=== PATIENT | female | born 1950 | race Caucasian/White ===

== ENCOUNTER 2020-03-10 14:21 | Emergency (ER) | payer MEDICARE ==
[~2020-03-10] VITALS: Ht 167.6 cm; Wt 127.0 kg
--- OUTSIDE RECORDS SUMMARY | ~2020-03-10 | XMS | Encounter Summary ---
Demographics + + + | Address | [address] | | | [place] [address] | + + + | Home Phone | | + + + | Preferred Language | Unknown | + + + | Marital Status | Single | + + + | Mormonism Affiliation | Unknown | + + + | Race | White | + + + | Ethnic Group | Not or | + + + Author + + + | Author | [facility] | + + + | Organization | [facility] | + + + | Address | Unknown | + + + | Phone | Unavailable | + + + Support + + +---------+ + | Name | Relationship | Address | Phone | + + +---------+ + | Marifer Valentin | ECON | Unknown | | + + +---------+ + Care Team Providers + +------+ + | Care Riprap Worker Name | Role | Phone | + +------+ + | Stephanie Washington | PCP | | + +------+ + Encounter Details +--------+ + + + + | Date | Type | Department | Care Team | Description | +--------+ + + + + | 07/08/ | Abstract | [facility] | Clinic, Surgery | | | 2019 | | [place] [facility] [address] | | | | | | [address] | | | | | | Mailcode: [place] | | | | | | [facility] | | | | | | [facility], [address] | | | | | | [place], [place] | | | | | | [address] | | | | | | [phone] | | | +--------+ + + + + Social History + + + +--------+------+ | Tobacco Use | Types | Packs/Day | Years | Date | | | | | Used | | + + + +--------+------+ | Former Smoker | Cigarettes | | | | + + + +--------+------+ + +---+---+---+ | Smokeless Tobacco: | | | | | Never Used | | | | + +---+---+---+ + + +---------+ + | Alcohol Use | Drinks/Week | oz/Week | Comments | + + +---------+ + | Never | | | 20 years sober | + + +---------+ + + + + + | Alcohol Habits | Answer | Date Recorded | + + + + | How often do you have a drink containing | Never | 06/14/2019 | | alcohol? | | | + + + + | How many drinks containing alcohol do you | Not asked | | | have on a typical day when you are | | | | drinking? | | | + + + + | How often do you have six or more drinks on | Not asked | | | one occasion? | | | + + + + + + + | Sex Assigned at | Date Recorded | | | | + + + | Not on file | | + + + + + + + | Job Start Date | Occupation | Industry | + + + + | Not on file | Not on file | Not on file | + + + + + + + + | Travel History | Travel Start | Travel End | + + + + + + | No recent travel history available. | + + documented as of this encounter Plan of Treatment Not on filedocumented as of this encounter Visit Diagnoses Not on filedocumented in this encounter"
--- OUTSIDE RECORDS SUMMARY | ~2020-03-10 | XMS | Encounter Summary ---
Demographics + + + | Address | [address] | | | [place] [address] | + + + | Home Phone | | + + + | Preferred Language | Unknown | + + + | Marital Status | | + + + | Samaritan Affiliation | 1027 | + + + | Race | Unknown | + + + | Ethnic Group | Unknown | + + + Author + + + | Author | [facility] | | | and [place] | + + + | Organization | [facility] | | | and [place] [...] Team Providers + +------+ + | Care Survey Data Technician Name | Role | Phone | + +------+ + | Peng Fink MD | PCP | | + +------+ + Reason for Visit Auth/Cert +--------+--------+ + + + + | Status | Reason | Specialty | Diagnoses / | Referred By | Referred To | | | | | Procedures | Contact | Contact | +--------+--------+ + + + + | Closed | | | Diagnoses | | Jesus, | | | | | Basal cell | | Sundeep Jules MD | | | | | carcinoma of | | [address] | | | | | trunk | | [address] | | | | | Procedures | | [place] | | | | | [place] EXC SKIN | | [address] | | | | | [place] | | Phone: | | | | | 2.1-3CM | | [phone] | | | | | TRUNK,ARM,LE | | Fax: | | | | | G ND SPLIT | | [phone] | | | | | GRFT | | | | | | | TRUNK,ARM,LE | | | | | | | G <100SQCM | | | +--------+--------+ + + + + Encounter Details +--------+---------+ + + + | Date | Type | Department | Care Team | Description | +--------+---------+ + + + | 10/07/ | Surgery | [facility] | Sundeep Lee, | EXCISION OF RIGHT | | 2015 | | [facility] | [address] | UPPER BACK BASAL | | | | INTRA [address] | [place], | CELL CARCINOMA | | | | [address] | [place] [address] | | | | | [place] | [phone] | | | | | | | [...] + + + | Blood Pressure | 142/73 | 10/07/2015 10:28 AM | | | | | PST | | + + + + + | Pulse | 61 | 10/07/2015 11:46 AM | | | | | PST | | + + + + + | Temperature | 36.7 C (98.1 F) | 10/07/2015 10:28 AM | | | | | PST | | + + + + + | Respiratory Rate | 16 | 10/07/2015 11:46 AM | | | | | PST | | + + + + + | Oxygen Saturation | 99% | 10/07/2015 11:46 AM | | | | | PST | | + + + + + | Inhaled Oxygen | - | - | | | Concentration | | | | + + + + + | Weight | 142.4 kg (313 lb 15 | 10/07/2015 8:17 AM | | | | oz) | PST | | + + + + + | Height | 165.1 cm (5' 5") | 10/07/2015 8:17 AM | | | | | PST | | + + + + + | Body Mass Index | 52.24 | 10/07/2015 8:17 AM | | | | | PST | | + + + + + documented in this encounter Discharge Summaries Sundeep Lee MD - 10/19/2015 1:08 PM PSTFormatting of this note might be different f rom the original. DISCHARGE SUMMARY Tiffanie Valentin, 65 y.o. female DATE OF ADMISSION: 10/07/2015 7:23 DATE OF DISCHARGE: 10/19/2015 DIAGNOSES: (Principal diagnosis listed first): Basal cell carcinoma of trunk [C44.519] Active Problems: * No active hospital problems. * SURGICAL PROCEDURES PERFORMED: Procedure(s) (LRB): EXCISION OF RIGHT UPPER BACK BASAL CELL CARCINOMA (Right) PROCEDURES:SKIN GRAFT FULL THICKNESS Summary of hospital course: The patient underwent the above surgical procedure, after which she was watched until stabl e then discharged to home. Condition on discharge: The patient tolerated the procedure well Disposition: Home PRIMARY CARE PROVIDER: Peng Fink MD PAST HISTORY: Past Medical History Diagnosis Date Anxiety Cataract Reflux Fractures 1988 right tib fib Dental bridge present Malignant neoplasm of skin BCCA back Palpitations upon awakening- pt denies Anemia yrs ago- resolved Acid reflux disease controlled Hypertension controlled Arthritis left knee Sleep apnea uses CPAP Wears partial dentures Prediabetes per pt "I am pre- diabetic" - no meds Past Surgical History Procedure Laterality Date Ovary removal Right Dilation and curettage of uterus 2012 Fracture surgery Right 1988 Tib-Fib with external fixator and subsequent removal Knee surgery Left 1988 Cardiac catherization N/A 01/02/2015 Procedure: LEFT HEART CATH W/ CORONARIES/CORONARY INTERVENTION; Surgeon: Jozef Hoover MD; [facility] Carpal tunnel release Left 11/19/2007 Dr. Trey Morrell Carpal tunnel release Right 10/04/2007 Dr. Trey Morrell Eye surgery Bilateral cataracts with lens implant Skin full graft Right 10/07/2015 Procedure: EXCISION OF RIGHT UPPER BACK BASAL CELL CARCINOMA; Surgeon: Sundeep Lee MD; Location: [facility] [place] ALL[facility]GIES: Review of patient's allergies indicates no known allergies. - - - - - - - - - - - - - - - - - - - - - - Discharge instructions: Keep the dressing clean and dry. Keep the operated extremity elevated as much as possible-- preferably above the level of your heart-- to prevent swelling. Open and close your fingers as far up and down as possible to keep them from getting sti ff and swollen If feel that your postoperative splint is too tight to the point that it is acting like a tourniquet and causing swelling or numbness, either call, go to the ER, or go ahead and cu t through one side of the splint to release the pressure (and then retape the splint in its looser position). For showers-- please place a clean plastic bag over your dressing and tape it in place a nd keep your arm elevated so the dressing does not get wet No handling or washing pets Discharge medications: Patient Instructions: 1. If you are given a prescription for antibiotics, take them as ordered by your doctor unt il they are all gone. 2. Take medications as directed by your doctor. 3. If you have problems that may be caused by your medications such as rash, itching, swell ing, or stomach pain, call your doctor. Medications: Discharge Medications New Medications Details HYDROcodone-acetaminophen 5-325 mg per tablet Take 1-2 tablets by mouth every 6 hours as needed for Pain. aka: NORCO Unchanged Medications Details ALEVE 220 MG tablet Generic drug: naproxen sodium Take 220 mg by mouth as needed. aspirin 81 mg EC tablet Take 81 mg by mouth nightly. Cholecalciferol 2000 units Caps Take 2,000 Units by mouth Daily. aka: VITAMIN D-3 enalapril 20 MG tablet Take 20 mg by mouth 2 times daily. aka: VASOTEC omeprazole 20 mg capsule Take 20 mg by mouth every morning (before breakfast). aka: priLOSEC simvastatin 20 mg tablet Take 20 mg by mouth nightly. aka: ZOCOR venlafaxine 75 MG tablet Take 75 mg by mouth every morning. aka: EFFEXOR Follow-up appointment: Appointment with Dr. Lee at [facility] the [facility] in 1 week as scheduled. Activity: No strenuous activity until your next visit with Dr. Lee Diet: Your recommended diet should be: Return to the diet you were on prior to surgery. No alcoho lic beverages while taking narcotic pain medications. Symptoms to report to your surgeon: Pain that is not tolerable despite use of ice, elevation of arm and use of your pain med ications. Wet or blood-soaked bandages. Oral temperature greater than 100.5 degrees for more than 24 hours. Fingertips that become blanched white or blue (not bruised) You will likely have numbness/tingling from the local anesthetic. If this does not reso lve in 24 to 36 hours, call your doctor. If numbness/tingling starts after you go home, try repositioning your arm to take pressu re off your elbow and move your non-splinted joints around; wiggle your fingers. If the numb ness doesn t resolve, call your doctor. Follow Up: If your appointment has been made, you will find it listed in Your To Do List under Futu re Appointments. If no appointment is listed, please call the office at the number listed a [email or web address] to make a follow up appointment. If you are unable to reach doctor at the above number, call the answering service at . Copy of discharge instructions received. Sundeep Lee 10/19/2015 documente d in this encounter Discharge Instructions Instructions Sundeep Lee MD - 10/07/2015POST-OPERATIVE INSTRUCTIONS GENERAL Activity: Rest today. Change position slowly for the remainder of the day. Sit down immediately i f you experience dizziness or lightheadedness and call for help. Gradually return to normal activities. Diet: Clear liquids until nausea passes, then return to normal diet as tolerated. Pain and Comfort: Take pain medication as needed. Do NOT combine with any other pain medication Pain pills can cause constipation. Use a laxative of your choice if necessary. Do not dr ink alcohol, drive or operate machinery while taking narcotics Please be aware that, should you need additional pain medicine, this will not be filled after hours or on weekends; you should call by Monday morning regarding additional pain medi cation. Refills for pain medication may take up to 72 hours. Dressing: Leave dressing in place for 5 days. Keep the dressing clean and dry. After 5 days, remove the outer clear, plastic dressing and gauze. You will see tapes on the skin, leave these in place. Follow up: Follow-up with Dr. Lee at the [facility], 2nd Floor on 10/13 at 8:00am. Please plan to check in 10 minutes prior to your scheduled appointment. If you have questions or problems including the following, please call the surgeon's office at the number listed above these instructions in Future Appointments. Elevated fever over 101F especially if associated with sweats, chills and/or body ache s. Increasing redness around or drainage from your incision. Feeling the need to urinate but unable to. Pain that is not tolerable despite taking your medications as discussed. See Pain sectio n above. Frequent nausea/vomiting especially if you are unable to keep fluids down. If you are unable to reach your doctor at the above number, call our answering service at . You have received sedation / an anesthetic today. DO NOT drive a vehicle, use alcoholic joseph erages, sign legal documents, take public transportation alone or care for a dependent perso n for the next 24 hours.:[id number]} documented in this encounter Medications at Time [...] + + + +---------+ + + | Cholecalciferol | Take 2,000 Units by | | 0 | | | | (VITAMIN D-3) 2000 | mouth Daily. | | | | 6 | | units CAPS | | | | | | + + + +---------+ + + | | Take 1-2 tablets by | 30 | 0 | 10/07/20 | | | HYDROcodone-acetamin | mouth every 6 hours | tablet | | 15 | 6 | | ophen (NORCO) 5-325 | as [...] + + documented as of this encounter Progress Notes Lynette Jimenez RN - 10/07/2015 12:02 PM PSTDischarge instruction given and reviewed with patient understanding discharged ambulatory To home escorted by daughter corinne jhaveri and valerie blake discharge criteria documented in this encounter Plan of Treatment Not on filedocumented as of this encounter Procedures + +--------+ + + + | Procedure Name | Priori | Date/Time | Associated Diagnosis | Comments | | | ty | | | | + +--------+ + + + | SKIN GRAFT FULL | | 10/07/2015 | Basal cell | | | THICKNESS | | 8:24 AM | carcinoma of trunk | | | | | PST | | | + +--------+ + + + +---+--------+ | | | | | Specia | | | l | | | Needs | | | WT | | | 325, | | | [place] | | | | | | DERMAT | | | OME | | | AND | | | DERMAT | | | OME | | | BLADE, | | | | | | POSITI | | | ON | | | PATIEN | | | T ON | | | LEFT | | | SIDE, | | | OK TO | | | CALL | | | AT | | | WORK | | | [phone] | | | [phone] | | | HAS | | | SLEEP | | | APNEA | +---+--------+ + +--------+ +---+ + | SURGICAL PATHOLOGY | Routin | 10/07/2015 | | Results for this | | EXAM | e | 12:00 AM | | procedure are in the | | | | PST | | results section. | + +--------+ +---+ + documented in this encounter Results Surgical Pathology Exam (10/07/2015 12:00 AM PST) + + | Specimen | + + | Soft tissue sample | | (specimen) | + + + + -------+ | Narrative | Performed At | + + -------+ | Gender: FAge: | [facility] | | 65Date of : 1950 CASE: [id number]: Tiffanie | CELLNETI X | | [facility] [id number]: Tiffanie Valentin | | | Date of : 1950rovider: Sundeep Lee MD | | | Received: 10/07/2015 FINAL DIAGNOSIS: Skin, right upper back, | | | excision:Basal cell carcinoma, with the following | | | features:Histological subtype: Superficial-multifocal | | | type.Margins:Superior-lateral peripheral: Negative (4 | | | mm).Inferior-lateral peripheral: Negative (greater than 5 | | | mm).Inferior-medial peripheral: Negative (greater than 5 | | | mm).Superior-medial peripheral: Negative (4.5 mm).Deep: Negative | | | (greater than 5 mm).Tips: Negative.Other findings: Focal dermal scar | | | and suture granuloma, consistent withprior biopsy site. CLINICAL | | | INFORMATION:Basal cell carcinoma of trunk. ICD10 code(s): C44.519 | | | GROSS DESCRIPTION:Received in formalin, labeled "Tiffanie Valentin" | | | "A" per containerand "right upper back lesion" per requisition, is a 6 | | | x 2.3 x 1.3 cmportion of skin with a suture at one pole designating | | | lateral. There girma central 0.5 x 0.5 cm scar, 0.7 cm from the superior | | | edge, 0.9 cm fromthe inferior edge, 2.6 cm from the lateral and | | | medial poles. It is inkedas follows: suture medial-orange; superior | | | lateral-blue; inferiorhalf-black. The subcutaneous tissue adjacent to | | | the scar has a whitefibrous appearance with focal pink-red punctate | | | areas. This scar is 0.9cm from the deep margin. Seal Skinner | | | sections are submitted asfollows: A1 - tips; A2-A8 - entire lesion | | | blocked out. (pam/[id number]) Jackson Vivar M.D. Electronically | | | signed 10/09/2015 13:07 Performed at [facility] | | | [place] [address] CLIA#: | | | [id number]: Unless otherwise specified, a microscopic exam | | | has been performed. Received Date: 10/07/2015Collection Date: | | | 10/07/2015Referring Physician: Jesus IRVIN, [facility] | | | Physician copies: | | |and "right upper back lesion" per requisition, is a 6 x 2.3 x 1.3 cm | | |portion of skin with a suture at one pole designating lateral. There is | | |a central 0.5 x 0.5 cm scar, 0.7 cm from the superior edge, 0.9 cm from | | |the inferior edge, 2.6 cm from the lateral and medial poles. It is inked | | |as follows: suture medial-orange; superior lateral-blue; inferior | | |half-black. The subcutaneous tissue adjacent to the scar has a white | | |fibrous appearance with focal pink-red punctate areas. This scar is 0.9 | | |cm from the deep margin. Seal Skinner sections are submitted as | | |follows: A1 - tips; A2-A8 - entire lesion blocked out. (pam/[id number]) | | | | | | | | | | | | | | | Jackson Vivar M.D. Electronically signed 10/09/2015 13:07 (220) | | |[phone] Performed at [facility], [address] [place] [address], | | |[place] [address] [facility]#: [id number] | | |Microscopic: Unless otherwise specified, a microscopic exam has been performed. | | | | | |Received Date: 10/07/2015 | | |Collection Date: 10/07/2015 | | |Referring Physician: Jesus IRVIN, Sundeep Jules | | |Additional Physician copies: | | + + -------+ + + + + + | Performing | Address | City/State/Zipcode | Phone Number | | Organization | | | | + + + + + | REFERENCE LAB | [address] [facility] | [place] [address] | [phone] | | [facility] | [address] | | | + + + + + documented in this encounter Visit Diagnoses + + | Diagnosis | + + | Basal cell carcinoma of trunk Basal cell carcinoma of skin of trunk, except scrotum | + + documented in this encounter Administered Medications + +--------+ +--------+------+ + | Medication Order | MAR | Action | Dose | Rate | Site | | | Action | Date | | | | + +--------+ +--------+------+ + | bupivacaine (PF) (MARCAINE) | Given | 10/07/20 | 17 mLs | | Surgical | | 0.5% injection PRN, Starting Wed | | 15 9:09 | | | Site | | 10/07/15 at 0909, Intra-op | | AM PST | | | | + +--------+ +--------+------+ + +---+---+ | | | +---+---+ + + + +---+-------+---+ | lactated ringers (LR) infusion | Rate/Dos | 10/07/20 | | 100 | | | at 100 mL/hr, Intravenous, | e Verify | 15 10:20 | | mL/hr | | | CONTINUOUS, Starting 10/07/15 | | AM PST | | | | | at 0800, Pre-op | | | | | | + + + +---+-------+---+ +---------+ +---+-------+---+ | New Bag | 10/07/20 | | 100 | | | | 15 8:21 | | mL/hr | | | | AM PST | | | | +---------+ +---+-------+---+ +---+---+ | | | +---+---+ + +-------+ +--------+---+ + | lidocaine 1%-EPINEPHrine | Given | 10/07/20 | 17 mLs | | Surgical | | 1:100,000 injection PRN, | | 15 9:09 | | | Site | | Starting 10/07/15 at 0909, | | AM PST | | | | | Intra-op | | | | | | + +-------+ +--------+---+ + +---+---+ | | | +---+---+ documented in this encounter
--- OUTSIDE RECORDS SUMMARY | ~2020-03-10 | XMS | Encounter Summary ---
Demographics + + + | Address | [address] | | | [place] [address] | + + + | Home Phone | | + + + | Preferred Language | Unknown | + + + | Marital Status | Single | + + + | Jain Affiliation | Unknown | + + + | Race | White | + + + | Ethnic Group | Not or | + + + Author + + + | Author | [facility] | + + + | Organization | [facility] | + + + | Address | Unknown | + + + | Phone | Unavailable | + + + Support + + +---------+ + | Name | Relationship | Address | Phone | + + +---------+ + | Marifer Valentin | ECON | Unknown | | + + +---------+ + Care Team Providers + +------+ + | Care Timekeeping Supervisor Name | Role | Phone | + +------+ + | Unknown | PCP | Unavailable | + +------+ + Reason for Visit + + + | Reason | Comments | + + + | Medical Records | | | Review | | + + + Encounter Details +--------+ + + + + | Date | Type | Department | Care Team | Description | +--------+ + + + + | 01/14/ | Abstract | [facility] | Marita Hadley, | Medical Records | | 2019 | | [place] [facility] [address] | [address] | Review | | | | [address] | [place], [place] | | | | | Mailcode: [place] | [address] | | | | | for Health and | [phone] | | | | | [facility] [address] | | | | | | [place], [place] | | | | | | [address] | | | | | | [phone] | | | +--------+ + + + [...]
--- OUTSIDE RECORDS SUMMARY | ~2020-03-10 | XMS | Encounter Summary ---
Demographics + + + | Address | [address] | | | [place] [address] | + + + | Home Phone | | + + + | Preferred Language | Unknown | + + + | Marital Status | | + + + | Pentecostal Affiliation | 1027 | + + + | Race | Unknown | + + + | Ethnic Group | Unknown | + + + Author + + + | Author | [facility] | | | and [place] | + + + | Organization | [facility] | | | and [place] [...] Team Providers + +------+ + | Care Bsa/Aml Compliance Officer Name | Role | Phone | + [...] | | skin of | | [place] | | | | | left upper | | [address] | | | | | extremity, | | Phone: | | | | | including | | [phone] | | | | | shoulder | | Fax: | | | | | Procedures | | [phone] | | | | | NV EXC TUMOR | | | | | | | SOFT TISSUE | | | | | | | UPPER | | | | | | | ARM/ELBOW | | | | | | | SUBQ 3+CM | | | | | | | NV EXC SKIN | | | | | | | MALIG >4CM | | | | | | | TRUNK,ARM,LE | | | | | | | G | | | +--------+--------+ + + + + Encounter Details +--------+ + + + + | Date | Type | Department | Care Team | Description | +--------+ + + + + | 11/17/ | Anesthesia | [facility] | Kelly Mendoza, | | | 2015 | Event | [facility] | PNEUMATIC JACK OPERATOR [address] | | | | | [address]TRA [address] [place], | | | | | [address] | [place] [address] | | | | | [place] [address] | [phone] | | | | | [phone] | | | | | | | Hardeep Johnson, | | | | | | PNEUMATIC JACK OPERATOR [address] | | | | | | [place] | | | | | | [address] | | | | | | | | +--------+ + + + + Anesthesia Record + + + + + | Procedure Name | Responsible | Anesthesia Start | Anesthesia Stop Time | | | Anesthesiologist | Time | | + + + + + | LEFT UPPER EXTREMITY | Kelly Mendoza CRNA | 11/17/15 1018 | 11/17/15 1219 | | LIPOMA EXCISION, | | | | | LEFT BASAL CELL | | | | | CARCINOMA EXCISION | | | | | (Left Arm Upper) | | | | + + + + + +----+---+ + + | Da | T | Event | Comment | | te | i | | | | | m | | | | | e | | | +----+---+ + + | 01 | 0 | An Checkout | Pre-use anesthesia machine/equipment checkout. | | /2 | 9 | | | | 6/ | 5 | | | | 20 | 9 | | | | 16 | | | | +----+---+ + + | | 1 | | | | | 0 | | | | | 1 | | | | | 1 | | | +----+---+ + + | | 1 | An Start | Reassessment prior to anesthesia induction/procedure. | | | 0 | | | | | 1 | | | | | 8 | | | +----+---+ + + | | 1 | Antibiotic | | | | 0 | Given | | | | 1 | | | | | 8 | | | +----+---+ + + | | 1 | Preoxygenat | | | | 0 | ed | | | | 2 | | | | | 6 | | | +----+---+ + + | | 1 | An | | | | 0 | Induction | | | | 3 | | | | | 0 | | | +----+---+ + + | | 1 | An | | | | 0 | Intubation | | | | 3 | | | | | 1 | | | +----+---+ + + | | 1 | Augusta | | | | 0 | 43-degrees | | | | 4 | | | | | 0 | | | +----+---+ + + | | 1 | First | | | | 0 | Inc/Proc St | | | | 4 | | | | | 5 | | | +----+---+ + + | | 1 | Pre-Procedu | | | | 0 | ral Timeout | | | | 4 | Completed | | | | 6 | | | +----+---+ + + | | 1 | AN Bite | | | | 2 | Block | | | | 0 | | | | | 0 | | | +----+---+ + + | | 1 | Oropharynx | | | | 2 | Suctioned | | | | 0 | | | | | 0 | | | +----+---+ + + | | 1 | Augusta off | | | | 2 | | | | | 0 | | | | | 0 | | | +----+---+ + + | | 1 | Extubated | | | | 2 | Awake | | | | 0 | | | | | 3 | | | +----+---+ + + | | 1 | an stop | | | | 2 | data | | | | 0 | | | | | 9 | | | +----+---+ + + | | 1 | An Stop | Awake with good airway. Oral airway out. To PACU on 8L O2 FM. | | | 2 | | Patient handed off to recovery nurse. No pain or nausea. 142/90, | | | 1 | | 97, 18, 99%, 36.5. | +----+---+ + + +------+ | Meds | +------+ + + + | Name | Total | + + + | midazolam | 2 mg | + + + | lidocaine 2% (PF) | 100 mg | + + + | fentaNYL | 225 mcg | + + + | propofol | 230 mg | + + + | succinylcholine | 180 mg | + + + | rocuronium | 20 mg | + + + | dexamethasone (DECADRON) | 4 mg | | injection 4 mg/mL (non-IV routes) | | + + + | ePHEDrine | 30 mg | + + + | ondansetron | 4 mg | + + + | ceFAZolin | 2 g | + + + | lactated ringers infusion | 1,800 mL | + + + + + | Name | + + | N2O Flow Rate (L/Min) | + + | O2 Flow Rate (L/Min) | + + | Insp O2 | + + | Exp N2O | + + | Exp SEV | + + | Air Flow Rate (L/Min) | + + + + | No blood administrations on file. | + + +--------+ + + + | Type | Details | Placement | Removal | +--------+ + + + | Periph | 10/07/15; 0821; [id number] | 10/07/15 0821 by | 07/16/18 1411 by | | eral | catheter system; 20 gauge, 1 in | Ana Paula Valladares | Mary Carmen Smith, | | IV | length; distraction, tolerated | | RN | | | well; 07/16/18; 1411 | | | +--------+ + + + | Read | 10/07/15; 09; back; 07/16/18; | 10/07/15 0910 by | 07/16/18 1411 by | | only - | 1411 | Cosmo Wilkins, | Mary Carmen Smith, | | | | RN | RN | | [facility] | | | | | on | | | | +--------+ + + + | Periph | 11/17/15; 1000; [id number] | 11/17/15 1000 by | 11/17/15 1416 by | | eral | catheter system; 20 gauge, 1 in | Latasha Abbott | Dilcia Sewell, | | IV | length; distraction, intradermal | | FINANCE TEACHER | | | injection, tolerated well; | | | | | expected removal post discharge; | | | | | 11/17/15; 1416 | | | +--------+ + + + | Airway | Placement Date: 11/17/15; | 11/17/15 1031 by Kelly | 11/17/15 1203 by Kelly | | | Placement Time: 1031; Mask | Stephan Mendoza CRNA | Stephan Mendoza CRNA | | | Ventilation: EZ; Airway Grade: | | | | | II; Successful Technique: Olmedo; | | | | | Laryngoscope Blade Size: 2; | | | | | Attempts: 1; Airway Type: | | | | | endotracheal, oral, cuffed, | | | | | disposable; Size: 7; Airway Tube | | | | | Secured At: 20; Tube Reference | | | | | Point: lip, secure and patent; | | | | | Trauma: none; Other Equipment: | | | | | stylette; Placement Check: breath | | | | | sounds equal bilaterally, | | | | | exhaled CO2 detection device; | | | | | Removal Date: 11/17/15; Removal | | | | | Time: 1203 | | | +--------+ + + + | Drain/ | 11/17/15; 1140; #1; Left; upper; | 11/17/15 1140 by | 11/17/15 1416 by | | Device | arm; collapsible closed device; | Collette Edmonds, | Dilcia Sewell, | | Site | healing within expectations; | RN | FINANCE TEACHER | | | 11/17/15; 1416 | | | +--------+ + + + | Read | 11/17/15; 1144; Left; arm; | 11/17/15 1144 by | 11/17/15 1416 by | | only - | healing within expectations; | Collette Edmonds, | Dilcia Sewell, | | | 11/17/15; 1416 | RN | FINANCE TEACHER | | Inc[facility] | | | | | on | | | | +--------+ + + + documented in this encounter Social History + + + +--------+ + [...] Visit Diagnoses Not on filedocumented in this encounter Administered Medications + +--------+ +------+------+------+ | Medication Order | MAR | Action | Dose | Rate | Site | | | Action | Date | | | | + +--------+ +------+------+------+ | ceFAZolin (ANCEF, KEFZOL) | Given | 11/17/19 | 2 g | | | | injection Intravenous, PRN, | | 16 10:18 | | | | | Starting 11/17/15 at 1018, | | AM PST | | | | | Anesthesia Intra-op | | | | | | + +--------+ +------+------+------+ +---+---+ | | | +---+---+ + +-------+ +------+---+---+ | dexamethasone (DECADRON) 4 | Given | 11/17/19 | 4 mg | | | | mg/mL injection PRN, Starting | | 16 10:56 | | | | | 11/17/15 at 1056, Anesthesia | | AM PST | | | | | Intra-op | | | | | | + +-------+ +------+---+---+ +---+---+ | | | +---+---+ + +-------+ +-------+---+---+ | ePHEDrine 50 mg/mL injection | Given | 11/17/19 | 10 mg | | | | PRN, Starting Mon11/17/15 at | | 16 11:32 | | | | | 1054, Anesthesia Intra-op | | AM PST | | | | + +-------+ +-------+---+---+ +-------+ +-------+---+---+ | Given | 11/17/19 | 10 mg | | | | | 16 11:14 | | | | | | AM PST | | | | +-------+ +-------+---+---+ | Given | 11/17/19 | 10 mg | | | | | 16 10:54 | | | | | | AM PST | | | | +-------+ +-------+---+---+ +---+---+ | | | +---+---+ + +-------+ +--------+---+---+ | fentaNYL injection PRN, Pain, | Given | 11/17/19 | 25 mcg | | | | Starting 11/17/15 at 1042, | | 16 11:53 | | | | | Anesthesia Intra-op | | AM PST | | | | + +-------+ +--------+---+---+ +-------+ +---------+---+---+ | Given | 11/17/19 | 100 mcg | | | | | 16 10:42 | | | | | | AM PST | | | | +-------+ +---------+---+---+ | Given | 11/17/19 | 100 mcg | | | | | 16 10:28 | | | | | | AM PST | | | | +-------+ +---------+---+---+ +---+---+ | | | +---+---+ + +---------+ +---+---+---+ | lactated ringers (LR) infusion | New Bag | 11/17/19 | | | | | CONTINUOUS PRN, Starting Tue | | 16 11:06 | | | | | 11/17/15 at 1018, Anesthesia | | AM PST | | | | | Intra-op | | | | | | + +---------+ +---+---+---+ +---------+ +---+---+---+ | New Bag | 11/17/19 | | | | | | 16 10:18 | | | | | | AM PST | | | | +---------+ +---+---+---+ +---+---+ | | | +---+---+ + +-------+ +--------+---+---+ | lidocaine (PF) 2% injection | Given | 11/17/19 | 100 mg | | | | PRN, Starting Mon11/17/15 at | | 16 10:30 | | | | | 1030, Anesthesia Intra-op | | AM PST | | | | + +-------+ +--------+---+---+ +---+---+ | | | +---+---+ + +-------+ +------+---+---+ | midazolam (VERSED) 1 mg/mL | Given | 11/17/19 | 2 mg | | | | injection PRN, Anxiety, Starting | | 16 10:18 | | | | | e 11/17/15 at 1018, Anesthesia | | AM PST | | | | | Intra-op | | | | | | + +-------+ +------+---+---+ +---+---+ | | | +---+---+ + +-------+ +------+---+---+ | ondansetron (ZOFRAN) injection | Given | 11/17/19 | 4 mg | | | | PRN, Nausea, Vomiting, Starting | | 16 11:53 | | | | | 11/17/15 at 1153, Anesthesia | | AM PST | | | | | Intra-op | | | | | | + +-------+ +------+---+---+ +---+---+ | | | +---+---+ + +-------+ +-------+---+---+ | propofol (DIPRIVAN) injection | Given | 11/17/19 | 30 mg | | | | PRN, Starting Mon11/17/15 at | | 16 11:49 | | | | | 1030, Anesthesia Intra-op | | AM PST | | | | + +-------+ +-------+---+---+ +-------+ +--------+---+---+ | Given | 11/17/19 | 200 mg | | | | | 16 10:30 | | | | | | AM PST | | | | +-------+ +--------+---+---+ +---+---+ | | | +---+---+ + +-------+ +-------+---+---+ | rocuronium (ZEMURON) injection | Given | 11/17/19 | 10 mg | | | | PRN, Ventilator Dyssynchrony, | | 16 10:42 | | | | | Starting 11/17/15 at 1042, | | AM PST | | | | | Anesthesia Intra-op | | | | | | + +-------+ +-------+---+---+ +-------+ +-------+---+---+ | Given | 11/17/19 | 10 mg | | | | | 16 10:30 | | | | | | AM PST | | | | +-------+ +-------+---+---+ +---+---+ | | | +---+---+ + +-------+ +--------+---+---+ | succinylcholine (ANECTINE) | Given | 11/17/19 | 180 mg | | | | injection PRN, Starting Tue | | 16 10:30 | | | | | 11/17/15 at 1030, Anesthesia | | AM PST | | | | | Intra-op | | | | | | + +-------+ +--------+---+---+ +---+---+ | | | +---+---+ documented in this encounter"
--- OUTSIDE RECORDS SUMMARY | ~2020-03-10 | XMS | Encounter Summary ---
Demographics + + + | Address | [address] | | | [place] [address] | + + + | Home Phone | | + + + | Preferred Language | Unknown | + + + | Marital Status | Single | + + + | Alevism Affiliation | Unknown | + + + | Race | White | + + + | Ethnic Group | Not or | + + + Author + + + | Author | [facility] | + + + | Organization | [facility] | + + + | Address | Unknown | + + + | Phone | Unavailable | + + + Support + + +---------+ + | Name | Relationship | Address | Phone | + + +---------+ + | Marifer Valentin | ECON | Unknown | | + + +---------+ + Care Team Providers + +------+ + | Care Hospital Manager Name | Role | Phone | + +------+ + | Stephanie [place] | PCP | | + +------+ + Reason for Visit + + + | Reason | Comments | + + + | Bariatric Nutrition | | + + + Encounter Details +--------+---------+ + + + | Date | Type | Department | Care Team | Description | +--------+---------+ + + + | 10/10/ | Office | Dig[facility]ive Health | | Morbid obesity with | | 2018 | Visit | Center at [facility] [address] | | BMI of 45.0-49.9, | | | | [address] | | adult (HCC) (Primary | | | | Mailcode: Center | | Dx) | | | | for Health and | | | | | | [facility], [facility] [address] | | | | | | [place], [place] | | | | | | [address] | | | | | | [phone] | | | +--------+---------+ + + + [...] + + + + | Weight | 127.7 kg (281 lb 9.6 | 10/10/2019 10:41 AM | | | | oz) | PST | | + + + + + | Height | - | - | | + + + + + | Body Mass Index | 45.45 | 08/19/2019 12:56 PM | | | | | PDT | | + + + + + documented in this encounter Progress Notes Shoshana Paniagua, RD - 10/10/2019 9:30 AM PSTFormatting of this note might be different fr om the original. Referring Provider: [facility], Pre-Bariatric Surgery Class Pre-Surgery Class #1 prior to having Serafin-En-Y gastric bypass surgery or Sleeve Gastrectomy . Documented Time of Class: 60 minutes euew-tz-quea with patient OBJECTIVE: Height: Ht Readings from Last 1 Encounters: 08/19/19 1.676 m (5' 6") Ht Readings from Last 1 Encounters: 08/19/19 1.676 m (5' 6") Wt Readings from Last 2 Encounters: 10/10/19 127.7 kg (281 lb 9.6 oz) 08/19/19 129.7 kg (286 lb) BMI: Body mass index is 45.45 kg/m. Teaching Methods: Verbal presentation with Bariatric notebook and additional written materi als. Class content included: 1. Review of lipscomb points. -Eat within one hour of waking, then every 3 to 4 waking hours (usually 3 meals and 2-3 sna cks daily)Include protein at meals (2-3 ounces) and at snacks (~1 ounce). -Goal is 60-80grams of protein/day -At least 64 ounces of fluids throughout the day (no calories, caffeine, or carbonation) -Separate fluids from meals nothing to drink 30 minutes before, during, and [address] eating -Practice mindful eating eat slowly (30 minutes for meals) without distractions such as T V, computer, phone -Choose foods with < 14 grams of sugar and < 5 grams of fat per serving -30-60 minutes of physical activity most days -Taking vitamins and minerals every day 2. Mindful eating, emotional eating 3. Pre-surgery diet (plate method, label reading, keeping food logs) Assessment: Pt remained attentive throughout the class and/or participated by asking questi ons or sharing information. Shoshana Paniagua, MS, RDN, CSOWM, LD, CDE [facility] Bariatrics [phone] documented in this e ncounter Plan of Treatment Not on filedocumented as of this encounter Visit Diagnoses + + | Diagnosis | + + | Morbid obesity with BMI of 45.0-49.9, adult (HCC) - Primary | + + documented in this encounter
--- OUTSIDE RECORDS SUMMARY | ~2020-03-10 | XMS | Encounter Summary ---
Demographics + + + | Address | [address] | | | [place] [address] | + + + | Home Phone [...] Team Providers + +------+ + | Care Speech Coach Name | Role | Phone | + +------+ + | Stephanie Washington | PCP | | + +------+ + Encounter Details +--------+--------+ + + + | Date | Type | Department | Care Team | Description | +--------+--------+ + + + | 06/14/ | Travel | | | | | [...]
--- OUTSIDE RECORDS SUMMARY | ~2020-03-10 | XMS | Encounter Summary ---
Demographics + + + | Address | [address] | | | [place] [address] | + + + | Home Phone | | + + + | Preferred Language | Unknown | + + + | Marital Status | Single | + + + | Episcopalian Affiliation | Unknown | + + + | Race | White | + + + | Ethnic Group | Not or | + + + Author + + + | Author | [facility] | + + + | Organization | [facility] | + + + | Address | Unknown | + + + | Phone | Unavailable | + + + Support + + +---------+ + | Name | Relationship | Address | Phone | + + +---------+ + | Marifer Valentin | ECON | Unknown | | + + +---------+ + Care Team Providers + +------+ + | Care Seed Technician Name | Role | Phone | + +------+ + PCP | Unavailable | + +------+ + Encounter Details +--------+ + + + + | Date | Type | Department | Care Team | Description | +--------+ + + + + | 11/30/ | Abstract | Digestive Health | Clinic, Surgery | | | 2019 | | [place] [facility] [address] | | | | | | [address] | | | | | | Mailcode: [place] | | | | | | [facility] and | | | | | | Healing, [address] | | | | | | [place], [place] | | | | | | [address] | | | | | | [phone] | | | +--------+ + + + [...]
--- OUTSIDE RECORDS SUMMARY | ~2020-03-10 | XMS | Encounter Summary ---
Demographics + + + | Address | [address] | | | [place] [address] | + + + | Home Phone | | + + + | Preferred Language | Unknown | + + + | Marital Status | | + + + | Scientologist Affiliation | 1027 | + + + | Race | Unknown | + + + | Ethnic Group | Unknown | + + + Author + + + | Author | [facility] | | | and [place] | + + + | Organization | [facility] | | | and [place] [...] Team Providers + +------+ + | Care Photographic Intelligence Officer Name | Role | Phone | + +------+ + | Marita Albrecht MD | PCP | | + +------+ + Encounter Details +--------+ + + + + | Date | Type | Department | Care Team | Description | +--------+ + + + + | 11/15/ | Hospital | [facility] | Trey Morrell MD | | | 2007 | Encounter | [facility] | [address] | | | | | [address] | [address] | | | | | [place], | [place] [address] | | | | | [place] [address] | [phone] | | | | | [phone] | | | +--------+ + + + [...]
--- OUTSIDE RECORDS SUMMARY | ~2020-03-10 | XMS | Encounter Summary ---
Demographics + + + | Address | [address] | | | [place] [address] | + + + | Home Phone | | + + + | Preferred Language | Unknown | + + + | Marital Status | Single | + + + | Congregational Affiliation | Unknown | + + + | Race | White | + + + | Ethnic Group | Not or | + + + Author + + + | Author | [facility] | + + + | Organization | [facility] | + + + | Address | Unknown | + + + | Phone | Unavailable | + + + Support + + +---------+ + | Name | Relationship | Address | Phone | + + +---------+ + | Marifer Valentin | ECON | Unknown | | + + +---------+ + Care Team Providers + +------+ + | Care Induction Machine Operator Name | Role | Phone | + +------+ + PCP | Unavailable | + +------+ + Encounter Details +--------+ + + + + | Date | Type | Department | Care Team | Description | +--------+ + + + + | 12/12/ | Material Preparation Worker | Digestive Health | Marita Hadley, | Hiatal hernia with | | 2019 | | Center at [facility] [address] | MD [address] | GERD and esophagitis | | | | [address] | [place], [place] | (Primary Dx) | | | | Mailcode: [place] | [address] | | | | | for Health and | [phone] | | | | | [facility] | | | | | | [place], [place] | | | | | | [address] | | | | | | [phone] | | | +--------+ + + + [...] Not on filedocumented as of this encounter Results X-RAY ESOPHAGRAM (06/14/2019 2:28 PM PDT) + + | Specimen | + + | | + + + + + | Narrative | Performed At | + + + | EXAM: Esophagram with hockey scout radiograph HISTORY: Hiatal hernia | [facility] | | with GERD COMPARISON: None TECHNIQUE: Radiation dose reduction | RADIOLOGY VOICE | | technique was maximized where appropriate using pulsed fluoroscopy | RECOGNITION 2 | | and fluoro-store images. Fluoro Time: 81 sec FINDINGS: | | | Double contrast images were obtained with the patient upright in BOY | | | position. Single contrast images were obtained with the patient prone | | | in ARCHULETA position. The esophagus is normal in course and contour. Of | | | note is a sliding-type stomach containing hiatal hernia measuring 8.7 | | | x 11.6 cm. Esophageal motility is otherwise unremarkable. The | | | patient swallowed a barium tablet without difficulties. | | | IMPRESSION: Stomach containing sliding-type large hiatal hernia. | | | I have personally reviewed the images and, if necessary, edited the | | | report. I agree with the report as now presented. Final | | | signature: Trena Solano MD 06/14/2019 2:38 PM Preliminary: | | | Trena Solano MD Dictation initiated: Trena Solano MD | | | 06/14/2019 2:36 PM | | + + + + + | Procedure Note | + + | Service Account, [facility] In Interface - 06/14/2019 2:39 PM PDT EXAM: Esophagram | | with hockey scout radiograph HISTORY: Hiatal hernia with GERD COMPARISON: None TECHNIQUE: | | Radiation dose reduction technique was maximized where appropriate using pulsed | | fluoroscopy and fluoro-store images. Fluoro Time: 81 sec FINDINGS: Double contrast | | images were obtained with the patient upright in BOY position. Single contrast images | | were obtained with the patient prone in ARCHULETA position. The esophagus is normal in course | | and contour. Of note is a sliding-type stomach containing hiatal hernia measuring 8.7 x | | 11.6 cm. Esophageal motility is otherwise unremarkable. The patient swallowed a barium | | tablet without difficulties. IMPRESSION: Stomach containing sliding-type large hiatal | | hernia. I have personally reviewed the images and, if necessary, edited the report. I | | agree with the report as now presented. Final signature: Trena Solano MD 06/14/2019 | | 2:38 PM Preliminary: Trena Solano MD Dictation initiated: Trena Solano MD | | 06/14/2019 2:36 PM | | | |The esophagus is normal in course and contour. Of note is a sliding-type stomach containing hiatal hernia measuring 8.7 x 11.6 cm. Esophageal motility is otherwise unremarkable. | | | |The patient swallowed a barium tablet without difficulties. | | | |IMPRESSION: | | | |Stomach containing sliding-type large hiatal hernia. | | | |I have personally reviewed the images and, if necessary, edited the report. I agree with e report as now presented. | | | |Final signature: Trena Solano MD 06/14/2019 2:38 PM | |Preliminary: Trena Solano MD | |Dictation initiated: Trena Solano MD 06/14/2019 2:36 PM | + + + +---------+ + + | Performing | Address | City/State/Zipcode | Phone Number | | Organization | | | | + +---------+ + + | [facility] | | | | | VOICE RECOGNITION 2 | | | | + +---------+ + + documented in this encounter Visit Diagnoses + + | Diagnosis | + + | Hiatal hernia with GERD and esophagitis - Primary | + + documented in this encounter"
--- OUTSIDE RECORDS SUMMARY | ~2020-03-10 | XMS | Encounter Summary ---
Demographics + + + | Address | [address] | | | [place] [address] | + + + | Home Phone | | + + + | Preferred Language | Unknown | + + + | Marital Status | | + + + | Uatsdin Affiliation | 1027 | + + + | Race | Unknown | + + + | Ethnic Group | Unknown | + + + Author + + + | Author | [facility] | | | and [place] | + + + | Organization | [facility] | | | and [...] Team Providers + +------+ + | Care Information Receptionist Name | Role | Phone | + +------+ + | Peng Fink MD | PCP | | + +------+ + Encounter Details +--------+ + + + + | Date | Type | Department | Care Team | Description | +--------+ + + + + | 07/16/ | [facility] | [facility] | Ezra Green MD | | | 2018 | Encounter | [facility] OP | [address] | | | | | [address] | [place], [place] | | | | | [place], [place] | [address] | | | | | [address] | [phone] | | | | | [phone] | | | +--------+ + + + [...] You can't be awakened Date Last Reviewed: 08/09/[id number] [employer]. [address] [place] [address], [place] [address]. All righ ts reserved. This information is [...] | | | cell metaplasia or dysplasia. [facility]:smn:[id number] GROSS DESCRIPTION: | | | A. The [...] | | | interpretation were performed by [employer], [address] | | | [place] [address] (Cat Skinner: Jonatan Johns | | | Jareth Hamilton; IA#: [id number]). Diagnostician: Rene Rothman | | | Glenis IRVIN Pathologist Electronically Signed 07/18/2018 | | + + + + +---------+ + + | Performing | Address | City/State/Zipcode | Phone Number | | Organization | | | | + +---------+ + + | [facility] | | | | | [facility] [...]
--- OUTSIDE RECORDS SUMMARY | ~2020-03-10 | XMS | Encounter Summary ---
Demographics + + + | Address | [address] | | | [place] [address] | + + + | Home Phone | | + + + | Preferred Language | Unknown | + + + | Marital Status | Single | + + + | Judaism Affiliation | Unknown | + + + [...] Team Providers + +------+ + | Care Voucher Examiner Name | Role | Phone | + +------+ + | Stephanie Washington | PCP | | + +------+ + Encounter Details +--------+--------+ + + + | Date | Type | Department | Care Team | Description | +--------+--------+ + + + | 10/10/ | Travel | | | | | [...]
--- OUTSIDE RECORDS SUMMARY | ~2020-03-10 | XMS | Encounter Summary ---
Demographics + + + | Address | [address] | | | [place] [address] | + + + | Home Phone | | + + + | Preferred Language | Unknown | + + + | Marital Status | Single | + + + | Hinduism Affiliation | Unknown | + + + [...] Team Providers + +------+ + | Care Chalker Soles Name | Role | Phone | + [...]
--- OUTSIDE RECORDS SUMMARY | ~2020-03-10 | XMS | Encounter Summary ---
Demographics + + + | Address | [address] | | | [place] [address] | + + + | Home Phone | | + + + | Preferred Language | Unknown | + + + | Marital Status | Single | + + + | Restorationism Affiliation | Unknown | + + + [...] Team Providers + +------+ + | Care Advertising Sales Associate Name | Role | Phone | + +------+ + | Stephanie Washington | PCP | | + +------+ + Encounter Details +--------+--------+ + + + | Date | Type | Department | Care Team | Description | +--------+--------+ + + + | 12/20/ | Travel | | | | | 2020 | | | | | +--------+--------+ + [...]
--- OUTSIDE RECORDS SUMMARY | ~2020-03-10 | XMS | Encounter Summary ---
Demographics + + + | Address | [address] | | | [place] [address] | + + + | Home Phone | | + + + | Preferred Language | Unknown | + + + | Marital Status | | + + + | Christian Affiliation | 1027 | + + + | Race | Unknown | + + + | Ethnic Group | Unknown | + + + Author + + + | Author | [facility] | | | and [place] | + + + | Organization | [facility] | | | and [place] | [...] Team Providers + +------+ + | Care Aircraft Ordnance Technician Name | Role | Phone | [...] | [facility] | [address] | | | | | [address] | [address] | | | | | [place], | [place] [address] | | | | | [place] [address] | [phone] | | | | | [phone] | | | +--------+ + + + [...]
--- OUTSIDE RECORDS SUMMARY | ~2020-03-10 | XMS | Encounter Summary ---
Demographics + + + | Address | [address] | | | [place] [address] | + + + | Home Phone | | + + + | Preferred Language | Unknown | + + + | Marital Status | | + + + | Religion Affiliation | 1027 | + + + | Race | Unknown | + + + | Ethnic Group | Unknown | + + + Author + + + | Author | [facility] | | | and [place] | + + + | Organization | [facility] | | | and [place] | [...] Team Providers + +------+ + | Care Floral Manager Name | Role | Phone | [...] | [facility] | [address] | | | | | [address] | [address] [place] | | | | | [place], | [phone] | | | | | [place] [address] | | | | | | [phone] | | | +--------+ + + + [...]
--- OUTSIDE RECORDS SUMMARY | ~2020-03-10 | XMS | Encounter Summary ---
Demographics + + + | Address | [address] | | | [place] [address] | + + + | Home Phone | | + + + | Preferred Language | Unknown | + + + | Marital Status | | + + + | Buddhism Affiliation | 1027 | + + + | Race | Unknown | + + + | Ethnic Group | Unknown | + + + Author + + + | Author | [facility] | | | and [place] | + + + | Organization | [facility] | | | and [place] [...] Team Providers + +------+ + | Care Grip Boss Name | Role | Phone | + [...] Closed | | | Diagnoses | | | | | | | Nonspecific | | | | | | | abnormal | | | | | | | unspecified | | | | | | | cardiovascul | | | | | | | ar function | | | | | | | study | | | | | | | Nonspecific | | | | | | | abnormal | | | | | | | unspecified | | | | | | | cardiovascul | | | | | | | ar function | | | | | | | study | | | | | | | [794.30] | | | | | | | Procedures | | | | | | | SC CATH | | | | | | | PLACE/CORON | | | | | | | ANGIO, IMG | | | | | | | SUPER/INTERP | | | | | | | ,W LEFT | | | | | | | HEART | | | | | | | VENTRICULOGR | | | | | | | APHY SC PRQ | | | | | | | TRLUML | | | | | | | CORONARY | | | | | | | STENT | | | | | | | W/ANGIO ONE | | | | | | | ART/BRNCH | | | | | | | SC PRQ | | | | | | | TRLUML | | | | | | | CORONARY | | | | | | | STENT | | | | | | | W/ANGIO ADDL | | | | | | | ART/BRNCH | | | | | | | LEFT HEART | | | | | | | CATH W/ | | | | | | | CORONARIES/C | | | | | | | ORONARY | | | | | | | INTERVENTION | | | +--------+--------+ + + + + Encounter Details +--------+---------+ + + + | Date | Type | Department | Care Team | Description | +--------+---------+ + + + | 01/02/ | [facility] | [facility] | LEFT HEART CATH W/ | | 2014 | | [facility] | MD Janette [address] | CORONARIES/CORONARY | | | | [address] | [place] | INTERVENTION | | | | [place] | [address] | | | | | | [phone] | | | | | [phone] | | | +--------+---------+ + + + Social History + +-------+ +--------+ + | Tobacco Use | Types | Packs/Day | Years | Date | | | | | Used | | + +-------+ +--------+ + | Former Smoker | | | | Quit: 12/30/2007 | + +-------+ +--------+ + + +---+---+---+ | Smokeless Tobacco: [...] + + + | Blood Pressure | 151/99 | 01/02/2015 11:38 AM | | | | | PDT | | + + + + + | Pulse | 59 | 01/02/2015 11:38 AM | | | | | PDT | | + + + + + | Temperature | 36.7 C (98.1 F) | 01/02/2015 6:51 AM | | | | | PDT | | + + + + + | Respiratory Rate | 15 | 01/02/2015 11:38 AM | | | | | PDT | | + + + + + | Oxygen Saturation | 99% | 01/02/2015 11:38 AM | | | | | PDT | | + + + + + | Inhaled Oxygen | - | - | | | Concentration | | | | + + + + + | Weight | 143.4 kg (316 lb 1 | 01/02/2015 6:51 AM | | | | oz) | PDT | | + + + + + | Height | 167.6 cm (5' 6") | 01/02/2015 6:51 AM | | | | | PDT | | + + + + + | Body Mass Index | 51.01 | 01/02/2015 6:51 AM | | | | | PDT | | + + + + + documented in this encounter Discharge Summaries Jozef Hoover MD - 01/02/2015 9:25 AM PDTFormatting of this note might be different fr om the original. Physician Discharge Summary Patient ID: Tiffanie Valentin [id number] y.o. 1950 Admit date: 01/02/2015 Discharge date and time: No discharge date for patient encounter. Admitting Physician: Jozef Hoover MD Discharge Physician: Jozef Hoover MD [facility] Interventional Cardiology [place], [place] Admission Diagnoses: Nonspecific abnormal unspecified cardiovascular function study [794.30 ] Discharge Diagnoses: normal coronaries Normal ejection fraction Admission Condition: stable Discharged Condition: stable Indication for Admission: abnormal stress test Hospital Course: had left heart catheterization and found to have no significant coronary a rtery disease Consults: none Significant Diagnostic Studies: angiography: coronaries Disposition: home Patient Instructions: Discharge Medications Unchanged Medications Details aspirin 81 mg EC tablet Take 81 mg by mouth nightly. Cholecalciferol 2000 units Caps Take 2,000 Units by mouth Daily. aka: VITAMIN D-3 enalapril 20 MG tablet Take 20 mg by mouth 2 times daily. aka: VASOTEC HYDROcodone-acetaminophen 5-325 mg per tablet (ED prepack) Take 1-2 tablets by mouth EVERY 4 TO 6 HOURS NEEDED for Pain. aka: NORCO omeprazole 20 mg capsule Take 20 mg by mouth every morning (before breakfast). aka: priLOSEC simvastatin 20 mg tablet Take 20 mg by mouth nightly. aka: ZOCOR venlafaxine 75 MG tablet Take 75 mg by mouth every morning. aka: EFFEXOR Activity: no heavy lifting for 1 weeks Diet: cardiac diet Wound Care: keep wound clean and dry Follow-up with Dr. Hoover as needed Signed: Jozef Hoover MD 01/02/2015 9:25 documented in this e ncounter Discharge Instructions Instructions Tiffani Riley RN - 01/02/2015 Cardiac Catheterization: Radial Artery Access: Discharge Instructions After your cardiac catheterization, the following provides helpful information to assist yo ur recovery. General Information Fluids You should drink at least 6 glasses of water (8 ounces each) over the next 24 hrs. unless i nstructed otherwise or if you have been told to restrict your fluid intake due to a medical condition. Water helps to clear the "dye" used during the procedure from your body. Activity While the wound is healing, bleeding or swelling can occur as a result of stress or strain. Carefully follow these guidelines: * Do not Bend your wrist for 24 hrs. * No Driving for 24 hrs. * No soaking the wrist for 3 days ( i.e., tub, cleaning). * Do Lift more than 3-5 pounds with affected wrist for 1 week. Wound Care After the procedure, a band aid is applied to the wound site. The day after the procedure (24 hrs) you may remove the Band aid using soap and water. Do not reapply a new Band aid. Keep the site clean and dry. Do not put lotions, ointments, or powders on the wound site for 1 week. Wound Healing The healing wound should remain soft and dry. A bruise (black and blue) or a small marble s ized lump may be present. Please notify your MD and/or your Senior Quality Analyst if any of the follo wing occur: * Redness around the skin wound. * Drainage from the wound. * A lump at the puncture site that enlarges in size and/or is larger than a small marble. * Numbness or tingling or swelling of the fingers, hand, wrist or arm. * Increased area of bruising with discoloration extending into the arm. * Coolness of the hand and/or arm. Arterial Bleeding The following signs could indicate that the puncture in the arterial vessel has reopened an d that there is active bleeding. * Quickly Increasing swelling around the wound, which may be pulsating. * Profuse blood streaming from the puncture site. This would be rare, but it is a medical Emergency. Hold pressure with your thumb on the puncture site and your finger against the back of the wrist and CALL 911 documented in this encounter Medications at Time [...] | | Take 1-2 tablets by | 5 | 0 | 10/16/20 | | | HYDROcodone-acetamin | mouth EVERY 4 TO 6 | tablet | | 13 | 5 | | ophen (NORCO) 5-325 | HOURS NEEDED for | | | | | | mg per tablet (ED | Pain. | | | | | | prepack) | | | | | | + + + +---------+ + + documented as of this encounter Plan of Treatment Not on filedocumented as of this encounter Procedures + +--------+ + + + | Procedure Name | Priori | Date/Time | Associated Diagnosis | Comments | | | ty | | | | + +--------+ + + + | CV DIAGNOSTIC | Routin | 01/02/2015 | | Results for this | | CARDIAC CATH | e | 11:18 AM | | procedure are in the | | | | PDT | | results section. | + +--------+ + + + | CV DIAGNOSTIC | Routin | 01/02/2015 | | Results for this | | CARDIAC CATH | e | 9:35 AM | | procedure are in the | | | | PDT | | results section. | + +--------+ + + + | LEFT HEART CATH W/ | | 01/02/2015 | Nonspecific | | | CORONARIES/CORONARY | | 8:28 AM | abnormal unspecified | | | INTERVENTION | | PDT | cardiovascular | | | | | | function study | | + +--------+ + + + +---+--------+ | | | | | Specia | | | l | | | Needs | | | WT | | | 320; | | | SLEEP | | | APNEA | +---+--------+ + +--------+ +---+ + | LVEF VALUE | Routin | 01/02/2015 | | Results for this | | | e | | | procedure are in the | | | | | | results section. | + +--------+ +---+ + documented in this encounter Results CV Adult Cardiac Cath Diag/PCI (01/02/2015 11:18 AM PDT) + + + | Narrative | Performed At | + + + | Jozef Hoover MD 01/02/2015 11:18 Wrong Patient. | | + + + CV Adult Cardiac Cath Diag/PCI (01/02/2015 9:35 AM PDT) + + | Specimen | + + | | + + + + + | Narrative | Performed At | + + + | Jozef Hoover MD 01/02/2015 9:22 [facility] | [facility] | | [facility] CARDIAC CATHETERIZATION REPORT PATIENT | | | NAME: | | | Tiffanie Valentin DATE OF : | | | 1950 MEDICAL | | | RECORD NUMBER: [id number] | | | DATE OF PROCEDURE: | | | 01/02/2015 FACILITY: | | | [facility] | | | [place], [place] | | | | | | PRIMARY CARE PROVIDER: | | | Peng Fink PRIMARY ASSISTANT FLOOR COVERING PRINTER: | | | Jozef Hoover MD [facility] Interventional Cardiology | | | The [place], [place] MEDICAL DIRECTOR OF HOSPICE: | | | Dr. Jozef Hoover MD | | | [facility] PRE-PROCEDURE DIAGNOSIS: | | | abnormal stress test POST-PROCEDURE DIAGNOSIS: | | | normal coronaries Normal ejection fraction of 60% PROCEDURES | | | PERFORMED: 1. Left Heart Catheterization for LV pressures | | | 2. Left Venticulography using 15 cc per sec for 20 cc 3. Coronary | | | Angiography DESCRIPTION OF PROCEDURE: Informed consent was | | | obtained from the patient, and a time-out was performed to verify | | | the patient's identification and planned procedure. The patient's | | | right groin was then prepped and draped in the usual sterile | | | fashion, and anesthetized with 1% lidocaine. A 6 south sudanese sheath was | | | placed into the right radial artery A 6 south sudanese pigtail cathether was | | | advanced into the left ventricle, pressures were measured, and left | | | ventriculography was performed. Standard angiography was performed | | | in multiple views using 6 Arabic tiger catheter to engage the | | | left and right coronary artery, respectively. JL3.5 guide was used | | | to get better pictures of the Left anterior descending artery | | | selectively. Radial compression device was utilized to achieve | | | successful hemostasis in the raidal artery. there were no | | | immediate complications. Estimated blood loss was 10 cc. | | | FINDINGS: Hemodynamics: Left ventricular end-diastolic pressure | | | (LVEDP) is 25 mm Hg. There is no significant aortic valve | | | gradient. Left Ventriculography: Chamber size appears to be | | | normal. There are no discrete wall motion abnormalities, and the | | | ejection fraction is estimated at 60%. No significant mitral | | | regurgitation noted. Left main coronary artery: no significant | | | stenosis. Left anterior descending coronary artery: courses around | | | the apex, no significant stenosis. Circumflex coronary | | | artery: no significant stenosis. Right coronary artery: dominant, | | | no significant stenosis. CONCLUSIONS: 1. normal | | | cornaries 2. normal ejection fraction Jozef Siddiqui | | | MD Kiko [facility] Interventional Cardiology [facility] | | | [place], [place] 01/02/2015 9:20 | | + + + + +---------+ + + | Performing | Address | City/State/Zipcode | Phone Number | | Organization | | | | + +---------+ + + | [facility] | | | | + +---------+ + + LVEF VALUE (01/02/2015) + +-------+ + + + | Component | Value | Ref Range | Performed | Pathologist | | | | | At | Signature | + +-------+ + + + | LVEF-LVGRAM | 60 | | | | | CARDIAC | | | | | | CATH | | | | | + +-------+ + + + documented in this encounter Visit Diagnoses + + | Diagnosis | + + | Nonspecific abnormal unspecified cardiovascular function study | + + documented in this encounter Administered Medications + +--------+ +--------+------+------+ | Medication Order | MAR | Action | Dose | Rate | Site | | | Action | Date | | | | + +--------+ +--------+------+------+ | aspirin chewable tablet 324 mg | Given | 01/03/20 | 324 mg | | | | 324 mg, Oral, DIRECTOR CORPORATE, Starting | | 15 7:29 | | | | | 01/02/15 at 0655, For 1 dose, | | AM PDT | | | | | If not already given., Pre-op | | | | | | + +--------+ +--------+------+------+ +---+---+ | | | +---+---+ + +-------+ +-------+---+---+ | diphenhydrAMINE (BENADRYL) | Given | 01/03/20 | 25 mg | | | | capsule 25 mg 25 mg, Oral, ON | | 15 7:29 | | | | | CALL, Starting Mon01/02/15 at | | AM PDT | | | | | 0655, For 1 dose, Pre-op | | | | | | + +-------+ +-------+---+---+ +---+---+ | | | +---+---+ + +-------+ +--------+---+ + | fentaNYL injection | Given | 01/03/20 | 50 mcg | | Left Arm | | Intravenous, PRN, Starting Mon | | 15 8:57 | | | | | 01/02/15 at 0838, Intra-op | | AM PDT | | | | + +-------+ +--------+---+ + +-------+ +--------+---+ + | Given | 01/03/20 | 50 mcg | | Left Arm | | | 15 8:38 | | | | | | AM PDT | | | | +-------+ +--------+---+ + +---+---+ | | | +---+---+ + +-------+ +--------+---+---+ | heparin 5,000 units/mL | Given | 01/03/20 | 5,000 | | | | injection PRN, Starting Fri | | 15 8:58 | Units | | | | 01/02/15 at 0858 | | AM PDT | | | | + +-------+ +--------+---+---+ +---+---+ | | | +---+---+ + +-------+ +---------+---+---+ | iohexol (OMNIPAQUE 350) 350 | Given | 01/03/20 | 110 mLs | | | | mg/mL injection PRN, Starting | | 15 9:24 | | | | | 01/02/15 at 0924 | | AM PDT | | | | + +-------+ +---------+---+---+ +---+---+ | | | +---+---+ + +-------+ +------+---+ + | lidocaine 1% injection PRN, | Given | 01/03/20 | 1 mL | | Surgical | | Starting 01/02/15 at 0857 | | 15 8:57 | | | Site | | | | AM PDT | | | | + +-------+ +------+---+ + +---+---+ | | | +---+---+ + +-------+ +------+---+ + | midazolam (VERSED) 1 mg/mL | Given | 01/03/20 | 1 mg | | Left Arm | | injection Intravenous, PRN, | | 15 8:57 | | | | | Starting 01/02/15 at 0838, | | AM PDT | | | | | Intra-op | | | | | | + +-------+ +------+---+ + +-------+ +------+---+ + | Given | 01/03/20 | 1 mg | | Left Arm | | | 15 8:38 | | | | | | AM PDT | | | | +-------+ +------+---+ + +---+---+ | | | +---+---+ + +-------+ +---------+---+---+ | nitroglycerin 1mg in 10mL D5W | Given | 01/03/20 | 200 mcg | | | | injection PRN, Starting Fri | | 15 8:58 | | | | | 01/02/15 at 0858 | | AM PDT | | | | + +-------+ +---------+---+---+ +---+---+ | | | +---+---+ + +---------+ +--------+ +---+ | sodium chloride 0.9% (NS) | New Bag | 01/03/20 | 1,000 | 10 mL/hr | | | infusion at 10 mL/hr, | | 15 7:34 | mLs | | | | Intravenous, DIRECTOR CORPORATE, Starting | | AM PDT | | | | | 01/02/15 at 0655, For 1 dose, | | | | | | | Pre-op | | | | | | + +---------+ +--------+ +---+ +---+---+ | | | +---+---+ + +-------+ +--------+---+---+ | verapamil injection PRN, | Given | 01/03/20 | 2.5 mg | | | | Starting 01/02/15 at 0858 | | 15 8:58 | | | | | | | AM PDT | | | | + +-------+ +--------+---+---+ +---+---+ | | | +---+---+ documented in this encounter
--- OUTSIDE RECORDS SUMMARY | ~2020-03-10 | XMS | Encounter Summary ---
Demographics + + + | Address | [address] | | | [place] [address] | + + + | Home Phone | | + + + | Preferred Language | Unknown | + + + | Marital Status | | + + + | Sabianist Affiliation | 1027 | + + + | Race | Unknown | + + + | Ethnic Group | Unknown | + + + Author + + + | Author | [facility] | | | and [place] | + + + | Organization | [facility] | | | and [place] [...] Team Providers + +------+ + | Care Neonatal Pediatric Nurse Name | Role | Phone | [...] | | | | | | | NM CATH | | | | | | | PLACE/CORON | | | | | | | ANGIO, IMG | | | | | | | SUPER/INTERP | | | | | | | ,W LEFT | | | | | | | HEART | | | | | | | VENTRICULOGR | | | | | | | APHY NM PRQ | | | | | | | TRLUML | | | | | | | CORONARY | | | | | | | STENT | | | | | | | W/ANGIO ONE | | | | | | | ART/BRNCH | | | | | | | NM PRQ | | | | | | [...] | +--------+ + + + + | 01/02/ | Hospital | [facility] | [facility] | | | 2015 | Encounter | [facility] | MD Janette [address] | | | | | [address] | [place] | | | | | [place] | [address] | | | | | [address] | [phone] | | | | | [phone] | | | +--------+ + + + [...] Physician Discharge Summary Patient ID: Tiffanie Valentin [id number] y.o. 1950 Admit date: 01/02/2015 Discharge date and time: No discharge date for patient encounter. Admitting Physician: Jozef Hoover MD Discharge Physician: Jozef Hoover MD [facility] Interventional Cardiology [place], [place] Admission Diagnoses: Nonspecific abnormal unspecified cardiovascular [...] present. Please notify your MD and/or your Client Renewal Specialist if any of the follo wing occur: [...] + | Jozef Hoover MD 01/02/2015 9:22 [facility] | [facility] | | [facility] CARDIAC CATHETERIZATION REPORT PATIENT | | | NAME: | | | Tiffanie Valentin DATE OF : | | | 1950 MEDICAL | | | RECORD NUMBER: [id number] | | | DATE OF PROCEDURE: | | | 01/02/2015 FACILITY: | | | [facility] | | | [place], [place] | | | | | | PRIMARY CARE PROVIDER: | | | Peng Fink PRIMARY PRIVATE SECTOR EXECUTIVE: | | | Jozef Hoover MD [facility] Interventional Cardiology | | | The [place], [place] ORNAMENT STAPLER: | | | Dr. Jozef Hoover MD | | | [facility] PRE-PROCEDURE DIAGNOSIS: | | | abnormal stress [...] and anesthetized with 1% lidocaine. A 6 dutch sheath was | | | placed into the right radial artery A 6 dutch pigtail cathether was | | | advanced into the left ventricle, pressures were measured, and left | | | ventriculography was performed. Standard angiography was performed | | | in multiple views using 6 Latvian tiger catheter to engage the | | [...] Jozef Siddiqui | | | MD Kiko [facility] Interventional Cardiology [place] | | | [place] [address] CT 01/02/2015 9:20 | | + + + [...] | | | | 324 mg, Oral, GLOBAL SOURCING MANAGER, Starting | | 15 7:29 | | [...] mL | | Surgical | | Starting Mon01/02/15 at 0857 | | 15 8:57 | [...] 8:57 | | | | | Starting Mon01/02/15 at 0838, | | AM PDT | [...] | mLs | | | | Intravenous, GLOBAL SOURCING MANAGER, Starting | | AM PDT | | [...]
--- OUTSIDE RECORDS SUMMARY | ~2020-03-10 | XMS | Encounter Summary ---
Demographics + + + | Address | [address] | | | [place] [address] | + + + | Home Phone | | + + + | Preferred Language | Unknown | + + + | Marital Status | | + + + | Anabaptist Affiliation | 1027 | + + + | Race | Unknown | + + + | Ethnic Group | Unknown | + + + Author + + + | Author | [facility] | | | and [place] | + + + | Organization | [facility] | | | and [...] Team Providers + +------+ + | Care It Sales Consultant Name | Role | Phone | + +------+ + | Peng Fink MD | PCP | | + +------+ + Encounter Details +--------+---------+ + + + | Date | Type | Department | Care Team | Description | +--------+---------+ + + + | 07/16/ | Surgery | [facility] | Ezra Green MD | EGD | | 2018 | | MED CTR MP INTRA OP | [address] | | | | | [address] | [place], [place] | | | | | [place], [place] | [address] | | | | | [address] | [phone] | | | | | [phone] | | | +--------+---------+ + + + [...] You can't be awakened Date Last Reviewed: 08/09/[id number] [employer]. [address] [place] [address], [place] [address]. All righ ts reserved. This information is [...] | | | cell metaplasia or dysplasia. [facility]:smn:C2NR GROSS DESCRIPTION: | | | A. The specimen, received in formalin, labeled "Homero A.," | | | further designated "duodenal biopsy," [...] | The specimen, received in formalin, labeled "Homero, C.," further | | | designated "distal esophagus biopsy," consists of two sahni-sood | | | tissues, both 0.3 cm. Submitted in cassette (C1). tn:DALTON:annika | | | PERFORMING LABORATORY: The technical component and professional | | | interpretation were performed by [facility], [id number] | | [place] [address] (Mechanical Engineering Advisor: Jonatan Johns | | | Jareth Hamilton; CLIA#: [id number]). Diagnostician: Rene Rothman | | | Glenis IRVIN Pathologist Electronically Signed 07/18/2018 | | + + + + +---------+ + + | Performing | Address | City/State/Zipcode | Phone Number | | Organization | | | | + +---------+ + + | [facility] | | | | | [place] [...] ONCE PRN, Wheezing, | | | Starting 07/16/18 at 1614, | | | For 1 [...]
--- OUTSIDE RECORDS SUMMARY | ~2020-03-10 | XMS | Encounter Summary ---
Demographics + + + | Address | [address] | | | [place] [address] | + + + | Home Phone | | + + + | Preferred Language | Unknown | + + + | Marital Status | | + + + | Temple Affiliation | 1027 | + + + | Race | Unknown | + + + | Ethnic Group | Unknown | + + + Author + + + | Author | [facility] | | | and [place] | + + + | Organization | [facility] | | | and Maverickana [...] Team Providers + +------+ + | Care Music Coordinator Name | Role | Phone | + [...] | | | left upper | | [address] | | | | | extremity, | | Phone: | | | | | including | | [phone] | | | | | shoulder | | Fax: | | | | | Procedures | | [phone] | | | | | MO EXC TUMOR | | | | | | | SOFT TISSUE | | | | | | | UPPER | | | | | | | ARM/ELBOW | | | | | | | SUBQ 3+CM | | | | | | | MO EXC SKIN | | | | | [...] | | | INTRA MA[address] | LEFT BASAL CELL | | | | [address] | [place] | CARCINOMA EXCISION | | | | [place] | | | | | | [phone] | [phone] | | | | | | | [...] interact with your prescription medicines or other rrpc-hxb-yblejzq (OTC) drugs. Some pr escription medicines have [...] REPORT CASE: | [facility] X | | [id number]: Tiffanie Leighathology Report [id number]: | | | Tiffanie Valentin Date of [...] mass or lesion | | | isidentified. Oil Burner Technician sections are submitted as follows: A1 | [...] - centralareas with | | | hemorrhage. ([id number]) Dominique Ordaz M.D. | | | Electronically signed 11/20/2015 19:55 Performed at | | | [facility], Formerly [facility], [facility]–[address] [place] [address] | | | CLIA#: [id number] ADDENDUM: #1 FLUORESCENCE IN-SITU HYBRIDIZATION | | | (FISH) STUDIES:Source: Block [id number]: Cells of interest Name | | | [...] | | found to harboramplification of the 45g30-30 region, which includes | | | the [...] is | | | determined and a MDM2/PEH30wedll is calculated for each case. A | [...] 405Extremity-based Tumors. Am J Surg Pathol 2010; 34:2268-2345. | | | Methodology: Fluorescence in situ hybridization (FISH) for MDM2 | | | geneamplification (using MDM2/CEP12 probes and the Streamlines | | | Metaferautomated scanning fluorescent microscope) is performed at | | | [facility] [place]. [address]. Test results should be used in | | | conjunction with other availablelaboratory and clinical information. | | | This test was developed and itsperformance characteristics determined | | | by the Molecular PathologyLaboratory, [facility] | | | Laboratories. It has [...] Cheryl Ortiz MD. | | | Electronically [id number]/23/2015 16:02 Performed at | | | [facility],[address] [place] [address], [place], | | | [place] [address] CLIA#:[id number]: Unless otherwise | | | specified, a microscopic exam has been performed. Received Date: | | | 01/26/2016Collection Date: 11/17/2015Referring Physician: Jamar IRVIN, | | | [facility] Physician copies: | | | | | | | | | | | |Several studies have shown that molecular analysis refines the | | |classification of lipomatous tumors and is useful to discriminate | | |lipomas from atypical lipomatous tumor/well-differentiated liposarcoma | | |(ALT/WDL). Well-differentiated liposarcomas have been found to harbor | | |amplification of the 58c01-45 region, which includes the MDM2 (murine | [...] |Extremity-based Tumors. Am J Surg Pathol 2010; 34:5639-7340. | | | | | |Methodology: Fluorescence in situ hybridization (FISH) for MDM2 gene | | |amplification (using MDM2/CEP12 probes and the Streamlines Metafer | | |automated scanning fluorescent microscope) is performed at [facility], | | |[place]. [address]. | | | | | |Test results should be used in conjunction with other available | | |laboratory and clinical information. This test was developed and its | | |performance characteristics determined by the Molecular Pathology | | |Laboratory, [facility]. It has not been approved [...] signed | | |11/23/2015 16:02 Performed at [facility], | | |[facility] [address] Fisher StreetIA#: | | |[id number] | | |Microscopic: Unless otherwise specified, a microscopic exam has been performed. | | | | | |Received Date: 11/17/2015 | | |Collection Date: 11/17/2015 | | |Referring Physician: Jamar IRVIN, Guille [place] | | |Additional Physician copies: | | + + -------+ + + + + + | Performing | Address | City/State[facility] | Phone Number | | Organization | | | | + + + + + | REFERENCE LAB | [address] | [place] [address] | [phone] | | [facility] | [address] | | [...]
--- OUTSIDE RECORDS SUMMARY | ~2020-03-10 | XMS | Encounter Summary ---
Demographics + + + | Address | [address] | | | [place] [address] | + + + | Home Phone | | + + + | Preferred Language | Unknown | + + + | Marital Status | Single | + + + | Scientologist Affiliation | Unknown | + + + | Race | White | + + + | Ethnic Group | Not or | + + + Author + + + | Author | [facility] | + + + | Organization | [facility] | + + + | Address | Unknown | + + + | Phone | Unavailable | + + + Support + + +---------+ + | Name | Relationship | Address | Phone | + + +---------+ + | Marifer Valentin | ECON | Unknown | | + + +---------+ + Care Team Providers + +------+ + | Care Utility Tender Carding Name | Role | Phone | + +------+ + | Stephanie Washington | PCP | | + +------+ + Reason for Visit + + + | Reason | Comments | + + + | Evaluation AND/OR | | | management - new | | | patient | | + + + Consultation (Routine) + +---------+ + + + + | Status | Reason | Specialty | Diagnoses / | Referred By | Referred To | | | | | Procedures | Contact | Contact | + +---------+ + + + + | Pending | Other | Pain | Diagnoses | Goyal, | Forest Fire Management Officer Psych | | Review | | Management | Morbid | Cindy, TANK BUILDER HELPER | [facility] [address] | | | | | obesity with | [address] | | | | | BMI of | [address] | Mailcode: | | | | | 45.0-49.9, | [place], [place] | [facility] | | | | | adult (HCC) | [address] | for Health | | | | | Depression, | Phone: | and Healing, | | | | | unspecified | [phone] | Building [address], | | | | | depression | Fax: | 15th Floor | | | | | type | [phone] | [place], [place] | | | | | Hypertension | | [address] | | | | | , | | Phone: | | | | | unspecified | | [phone] | | | | | type | | Fax: | | | | | Obstructive | | [phone] | | | | | sleep apnea | | | | | | | | | | | | | | Gastroesopha | | | | | | | geal reflux | | | | | | | disease, | | | | | | | esophagitis | | | | | | | presence not | | | | | | | specified | | | | | | | Anemia, | | | | | | | unspecified | | | | | | | type | | | | | | | Hyperlipidem | | | | | | | ia, | | | | | | | unspecified | | | | | | | hyperlipidem | | | | | | | ia type | | | | | | | Bilateral | | | | | | | chronic knee | | | | | | | pain | | | | | | | Anxiety | | | | | | | Incisional | | | | | | | hernia, | | | | | | | without | | | | | | | obstruction | | | | | | | or gangrene | | | | | | | Procedures | | | | | | | CONSULT TO | | | | | | | PAIN | | | | | | | MANAGEMENT | | | + +---------+ + + + + Encounter Details +--------+---------+ + + + | Date | Type | Department | Care Team | Description | +--------+---------+ + + + | 10/25/ | Office | [facility] | Beatriz Sanches | Morbid obesity with | | 2020 | Visit | [address] | Alicia, PhD [address] | BMI of 45.0-49.9, | | | | Mailcode: CH15P | [place], [place] | adult ([facility]) (Primary | | | | Center for [facility] | [address] | Dx); Depression, | | | | and Healing, | [phone] | unspecified | | | | | | depression type | | | | Floor [facility] [place] | | | | | | [address] | | | | | | [phone] | | | +--------+---------+ + + + [...] documented as of this encounter Progress Notes Beatriz Sanches, PhD - 10/25/2019 10:30 AM PSTPROGRESS NOTE: PSYCHOLOGICAL EVALUATION FOR BARIATRIC SURGERY TO INCLUDE DIET AND EXERCISE COUNSELING IDENTIFYING INFORMATION: Tiffanie Valentin is a 69 y.o. female Date of : 1950 Consulting Psychologist: BEATRIZ SANCHES, PHD Referring Provider: Cindy Goyal Chief Complaint: morbid obesity Date of service: 10/25/2019 BMI: 46.16 kg/m | 286 lb | date: 08/19/2019 Proposed Surgery: Serafin en y gastric bypass Identifying Information: Tiffanie Valentin is a 69 y.o. female who lives in [facility] [place] th her daughter and granddaughter. She was referred for psychological evaluation prior to [facility] surgery. Informed consent and limits of confidentiality were discussed prior to the interview. Please see medical records for previous attempts at weight management. Eating and Dietary Styles: Tiffanie reported she is eating within first hour of waking; eatin g regularly, about 4 times daily, and small portions. She is going to a [employer] support group f or weight management and focusing on eating low fat proteins and vegetables. Water: about 40 oz daily, mostly with Crystal Light. Soda: diet soda 1-2 daily Coffee: 1 cup daily Tea: none Binge: denied Overeating: rare in past several months since focusing on dietary changes; prior to that sh e was overeating more regularly. Night eating syndrome: none Compensatory Behaviors: The patient denied any compensatory behaviors such as vomiting, ove r-exercising, or using emetics or diuretics. She reported she used to vomit after eating in the past, over two years ago, and this behavior stopped with emergence of hernia symptoms. Knowledge of Morbid Obesity & Surgical Intervention: The patient appears to have adequate k nowledge and understanding of the procedure and the research protocol. She expressed a vikram re to continue to try to lose weight without surgery, reporting she has lost 40 lbs so far b y changing her diet. Daily Activity and Functioning: The patient described a fairly sedentary lifestyle, thoug h she began going to a pool at her local health club this week, and her goal is to go 3 time s per week. 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 The p atient reported her current physical activity consists of PT home exercises and she recently starting going to the pool about once a week. Health: past medical history of morbid obesity and associated sleep apnea, osteoarthritis, GERD (gastroesophageal reflux disease), hypertension and hyperlipidemia. She reports a antoine ia, and needing to lose weight before surgery--takes Omeprazole to manage hernia symptoms. C hronic knee pain Mental Status: Tiffanie Valentin arrived on time for the appointment dressed in clean, casual clothing. The patient was interviewed alone. The patient was alert, oriented, pleasant an d cooperative. Speech was fluent and thought process was logical and relevant. Eye contact was good. Affect was mildly nervous. Mood was fine. Emotional Symptoms: The patient endorsed symptoms of depression including sad mood, anhedon ia, low energy, and sleep disturbance. She takes Venlafaxine prescribed by local PA. The patient did not endorse current symptoms of anxiety but reported anxiety in the past, a nd specifically discussed anxiety when she was heavily drinking alcohol. 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 Mental Health History: The patient reported past history of mental health treatment focuse d on family relationship dynamics. Emotional Coping: Tiffanie appears to have adequate coping skills and is trying to leave the house more and engage in valued activities. She reports social support from her immediate jese. Substance Use: Tobacco: Not current, quit 15 years ago. 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 She had another brother, four years o lder than she, who at age 6. She reports her father was an alcoholic. Mormonism was a jeancarlos ce of support and stability, and to a lesser degree school. Relationship Status: Not discussed. Children: Two adult children Social Support: Tiffanie appears to have adequate social support. Her daughter and grand-da shan will provide any needed care after surgery. Education and Profession: retired about two year ago. Current Life Stressors: Son's living situation, mental health Goals and Expectations: to lose weight on her own if she can, and to pursue surgery if need ed to allow her to have hernia surgery. She wants to improve her health. Psychological testing: PHQ-9= 5 VINI-7= 2 RSE= 28 Interpretation of Testing: The patient's score on the Patient Health Questionnaire-9 sugges ts mild depression. This is consistent with her reported symptoms and presentation during t he interview. The patient's score on the General Anxiety Disorder-7 suggests mild anxiety. This is consi stent with her reported symptoms and presentation during the interview. The patient's score on the Castano Self-Esteem Scale suggests self-esteem is within rossana l limits. This is consistent with her reported symptoms and presentation during the intervi ew. Testing Performed Today: Patient Health Questionnaire-9 General Anxiety Disorder-7 Castano Self esteem Scale Weight and Lifestyle Inventory (JAIDA) (shortened) CONCLUSIONS: Tiffanie Valentin appears from a psychological perspective to be an appropriate candidate for bariatric surgery. She appears to have adequate knowledge and understanding of the procedure and the required behavior changes and seems to have realistic goals and exp ectations. She does not appear to have significant psychological factors to contraindicate the surgery. She does not currently report significant symptoms of anxiety, and has adequate self-esteem. And although she reports ongoing depressive symptoms these are treated with ps ychiatric medication prescribed by her local medical provider, and she does not report signi ficant symptoms of depression. She expresses willingness to comply with the post-operative treatment plan. As she continues to follow the recommendations she has been given I anticip ate that she will have successful weight loss. Diagnosis: Depression, unspecified Morbid obesity with BMI 45.0-49.9 [E66.01, Z68.42] RECOMMENDATIONS: 1. Tiffanie Valentin appears from a psychological perspective to be an appropriate candidate f or bariatric surgery. 2. No psychological treatment is recommended at this time. She should return for follow-up 3 months after surgery, and may return sooner if needed. 3. She should continue with following the economics consultant's recommendations, and is encourged to improve her consistency with the recommendation to separate drinking from eating. 4. She should establish a clear routine for physical activity that she can begin now and c ontinue after surgery. She has started this week at a local health club doing pool exercises (1x) and stated her goal is to increase to 3 x/ week at one hour per visit. 5. She is encourged to participate in a Bariatric Surgery Support Group; or, to continue w ith her current support group (TOPS group). 6. She needs to increase her water intake. 7. She needs to avoid carbonated beverages. Total time I spent with the patient was approximately 55 minutes dxmh-xe-ifwi with the maciel ent, and approximately 15 minutes of administering testing and 1 hour and 20 minutes of non- kvmi-lm-gpaw interpreting and synthesizing results. Beatriz Sanches, PhD [facility] [address] Mailcode: [address] [address] documented in thi s encounter Plan of Treatment Not on filedocumented as of this encounter Procedures + +--------+ + + + | Procedure Name | Priori | Date/Time | Associated Diagnosis | Comments | | | ty | | | | + +--------+ + + + | DE | Routin | 10/26/2019 | Morbid obesity | | | PSYCHOLOGICAL/NEUROP | e | 1:03 PM | with BMI of | | | SYCHOLOGICAL TEST | | PST | 45.0-49.9, adult | | | QHP; FIRST 30 MIN | | | ([facility]) Depression, | | | | | | unspecified | | | | | | depression type | | + +--------+ + + + | DE PSYCHOLOGICAL | Routin | 10/26/2019 | Morbid obesity | | | TESTING EVAL QHP; EA | e | 1:03 PM | with BMI of | | | ADDL HOUR | | PST | 45.0-49.9, adult | | | | | | ([facility]) Depression, | | | | | | unspecified | | | | | | depression type | | + +--------+ + + + | DE PSYCHOLOGICAL | Routin | 10/26/2019 | Morbid obesity | | | TESTING EVAL QHP; | e | 1:03 PM | with BMI of | | | FIRST HOUR | | PST | 45.0-49.9, adult | | | | | | ([facility]) Depression, | | | | | | unspecified | | | | | | depression type | | + +--------+ + + + documented in this encounter Visit Diagnoses + + | Diagnosis | + + | Morbid obesity with BMI of 45.0-49.9, adult ([facility]) - Primary | + + | Depression, unspecified depression type | + + documented in this encounter"
--- OUTSIDE RECORDS SUMMARY | ~2020-03-10 | XMS | Encounter Summary ---
Demographics + + + | Address | [address] | | | [place] [address] | + + + | Home Phone | | + + + | Preferred Language | Unknown | + + + | Marital Status | Single | + + + | Buddhism Affiliation | Unknown | + + + [...] Team Providers + +------+ + | Care Cellophane Bag Machine Operator Name | Role | Phone | + +------+ + | Stephanie Washington | PCP | | + +------+ + Encounter Details +--------+--------+ + + + | Date | Type | Department | Care Team | Description | +--------+--------+ + + + | /03/ | Travel | | | | | [...]
--- OUTSIDE RECORDS SUMMARY | ~2020-03-10 | XMS | Encounter Summary ---
Demographics + + + | Address | [address] | | | [place] [address] | + + + | Home Phone | | + + + | Preferred Language | Unknown | + + + | Marital Status | | + + + | Lutheran Affiliation | 1027 | + + + | Race | Unknown | + + + | Ethnic Group | Unknown | + + + Author + + + | Author | [facility] | | | and [place] | + + + | Organization | [facility] | | | and [...] Team Providers + +------+ + | Care Women'S Studies Professor Name | Role | Phone | + +------+ + | Marita Albrecht MD | PCP | | + +------+ + Encounter Details +--------+ + + + + | Date | Type | Department | Care Team | Description | +--------+ + + + + | 04/01/ | Hospital | [facility] | PHYSICIAN, REEMA | | | 2007 | Encounter | [facility] | | | | | | [address] | | | | | | [place], | | | | | | [place] [id number] | | | | | | [phone] | | | +--------+ + + + [...]
--- OUTSIDE RECORDS SUMMARY | ~2020-03-10 | XMS | Encounter Summary ---
Demographics + + + | Address | [address] | | | [place] [address] | + + + | Home Phone | | + + + | Preferred Language | Unknown | + + + | Marital Status | Single | + + + | Congregation Affiliation | Unknown | + + + | Race | White | + + + | Ethnic Group | Not or | + + + Author + + + | Author | [facility] | + + + | Organization | [facility] | + + + | Address | Unknown | + + + | Phone | Unavailable | + + + Support + + +---------+ + | Name | Relationship | Address | Phone | + + +---------+ + | Marifer Valentin | ECON | Unknown | | + + +---------+ + Care Team Providers + +------+ + | Care Charger Operator Helper Name | Role | Phone | [...] | | | | | [place], | | | | | | [place] [address] | | | +--------+ + + + [...]
--- OUTSIDE RECORDS SUMMARY | ~2020-03-10 | XMS | Encounter Summary ---
Demographics + + + | Address | [address] | | | [place] [address] | + + + | Home Phone | | + + + | Preferred Language | Unknown | + + + | Marital Status | | + + + | Yarsani Affiliation | 1027 | + + + | Race | Unknown | + + + | Ethnic Group | Unknown | + + + Author + + + | Author | [facility] | | | and [place] | + + + | Organization | [facility] | | | and [place] [...] Team Providers + +------+ + | Care Light Rail Transit Operator Name | Role | Phone | + +------+ + | Peng Fink MD | PCP | | + +------+ + Encounter Details +--------+---------+ + + + | Date | Type | Department | Care Team | Description | +--------+---------+ + + + | 07/16/ | [facility] | [facility] | Ezra Green MD | EGD | | 2018 | | MED CTR MP INTRA OP | [address] | | | | | [address] | [place], [place] | | | | | [place], [place] | [address] | | | | | [address] | [phone] | | | | | [phone] | | | +--------+---------+ + + + [...] You can't be awakened Date Last Reviewed: 08/09/201619994082-2178 [employer]. [address] [place] [address], [place] [address]. All righ ts reserved. This information is [...] | | | cell metaplasia or dysplasia. [facility]:smn:[id number] GROSS DESCRIPTION: | | | A. [...] | | | interpretation were performed by [facility], [address] | | | [facility] [place] [address] (Health Education Aide: Jonatan Johns | | | Jareth Hamilton; CLIA#: [id number]). Diagnostician: Rene Rothman | | | Glenis IRVIN Pathologist Electronically Signed 07/18/2018 | | + + + + +---------+ + + | Performing | Address | City/State/Zipcode | Phone Number | | Organization | | | | + +---------+ + + | [facility] | | | | | [facility] [...]
--- OUTSIDE RECORDS SUMMARY | ~2020-03-10 | XMS | Encounter Summary ---
Demographics + + + | Address | [address] | | | [place] [address] | + + + | Home Phone | | + + + | Preferred Language | Unknown | + + + | Marital Status | | + + + | Baptist Affiliation | 1027 | + + + | Race | Unknown | + + + | Ethnic Group | Unknown | + + + Author + + + | Author | [facility] | | | and [place] | + + + | Organization | [facility] | | | and [place] [...] Team Providers + +------+ + | Care Psych Rn Name | Role | Phone | + [...] | [facility] | [address] | | | | | [address] | [address] [place] | | | | | [place], | [phone] | | | | | [place] [id number] | | | | | | [phone] | | | +--------+ + + + [...]
--- OUTSIDE RECORDS SUMMARY | ~2020-03-10 | XMS | Encounter Summary ---
Demographics + + + | Address | [address] | | | [place] [address] | + + + | Home Phone | | + + + | Preferred Language | Unknown | + + + | Marital Status | | + + + | Mormonism Affiliation | 1027 | + + + | Race | Unknown | + + + | Ethnic Group | Unknown | + + + Author + + + | Author | [facility] | | | and [place] | + + + | Organization | [facility] | | | and [place] [...] Team Providers + +------+ + | Care Global Marketing Manager Name | Role | Phone | + +------+ + | Peng Fink MD | PCP | | + +------+ + Encounter Details +--------+ + + + + | Date | Type | Department | Care Team | Description | +--------+ + + + + | 07/16/ | Anesthesia | [facility] | Akash Lentz, | | | 2018 | Event | [facility] | DO [address] | | | | | [address] | [place] | | | | | [place] | [address] | | | | | [address] | | | | | | [phone] | | | +--------+ + + + + Anesthesia Record + + + + + | Procedure Name | Responsible | Anesthesia Start | Anesthesia Stop Time | | | Anesthesiologist | Time | | + + + + + | EDI (N/A Sue) | Akash Lentz DO | 07/16/18 1532 | 07/16/18 1607 | + + + + + +----+---+ + + | Da | T | Event | Comment | | te | i | | | | | m | | | | | e | | | +----+---+ + + | 09 | 1 | | | | /2 | 4 | | | | 4/ | 4 | | | | 20 | 2 | | | | 18 | | | | +----+---+ + + | | 1 | An Checkout | Pre-use anesthesia machine/equipment checkout. | | | 5 | | | | | 2 | | | | | 2 | | | +----+---+ + + | | 1 | An Start | Reassessment prior to anesthesia induction/procedure. | | | 5 | | | | | 3 | | | | | 2 | | | +----+---+ + + | | 1 | AN | Per surgeon request | | | 5 | Antibiotic | | | | 3 | declined | | | | 2 | | | +----+---+ + + | | 1 | Pre-Procedu | | | | 5 | ral Timeout | | | | 3 | Completed | | | | 2 | | | +----+---+ + + | | 1 | An | | | | 5 | Induction | | | | 3 | | | | | 5 | | | +----+---+ + + | | 1 | First | | | | 5 | Inc/Proc St | | | | 3 | | | | | 6 | | | +----+---+ + + | | 1 | Breathing | | | | 5 | Spontaneous | | | | 5 | ly | | | | 9 | | | +----+---+ + + | | 1 | an stop | | | | 6 | data | | | | 0 | | | | | 3 | | | +----+---+ + + | | 1 | An Stop | Patient handed off to recovery nurse. | | | 0 | | | | | 7 | | | +----+---+ + + +------+ | Meds | +------+ + + + | Name | Total | + + + | lidocaine 2% | 50 mg | + + + | propofol | 130 mg | + + + | propofol | 541.75 mg | + + + | lactated ringers (LR) infusion | 900 mL | + + + + + | Name | + + | O2 Flow Rate (L/Min) | + + + + | No blood administrations on file. | + + +--------+ + + + | Type | Details | Placement | Removal | +--------+ + + + | Periph | 07/16/18; 1411; Right; Hand; | 07/16/18 1411 by | 07/16/18 1640 by | | jayl | pwbx-bwz-mumkoh catheter system; | Mary Carmen Smith, | Radha Langley RN | | IV | 20 gauge; distraction, | RN | | | | intradermal injection; expected | | | | | removal post discharge; 07/16/18; | | | | | 1640 | | | +--------+ + + + [...] filedocumented in this encounter Administered Medications + +---------+ +------+------+------+ | Medication Order | MAR | Action | Dose | Rate | Site | | | Action | Date | | | | + +---------+ +------+------+------+ | lactated ringers (LR) infusion | New Bag | 09/24/20 | | | | | at 10-100 mL/hr, Intravenous, | | 18 3:17 | | | | | CONTINUOUS, Starting 07/16/18 | | PM PDT | | | | | at 1415, TKO., Pre-op | | | | | | + +---------+ +------+------+------+ +---------+ +--------+-------+---+ | New Bag | 07/16/20 | 1,000 | 100 | | | | 18 2:11 | mLs | mL/hr | | | | PM PDT | | | | +---------+ +--------+-------+---+ +---+---+ | | | +---+---+ + +-------+ +-------+---+---+ | lidocaine (PF) 2% injection | Given | 07/16/20 | 50 mg | | | | Intravenous, PRN, Starting Mon | | 18 3:35 | | | | | 07/16/18 at 1535, Anesthesia | | PM PDT | | | | | Intra-op | | | | | | + +-------+ +-------+---+---+ +---+---+ | | | +---+---+ + + + + +--------+---+ | propofol (DIPRIVAN) injection | Rate/Dos | 07/16/20 | 180 | 148.5 | | | Intravenous, CONTINUOUS PRN, | e Change | 18 3:45 | mcg/kg/m | mL/hr | | | Starting 07/16/18 at 1535, | | PM PDT | in | | | | Anesthesia Intra-op | | | | | | + + + + +--------+---+ +---------+ + +--------+---+ | New Bag | 07/16/20 | 250 | 206.3 | | | | 18 3:35 | mcg/kg/m | mL/hr | | | | PM PDT | in | | | +---------+ + +--------+---+ +---+---+ | | | +---+---+ + +-------+ +-------+---+---+ | propofol (DIPRIVAN) injection | Given | 07/16/20 | 50 mg | | | | Intravenous, PRN, Starting Mon | | 18 3:58 | | | | | 07/16/18 at 1535, Anesthesia | | PM PDT | | | | | Intra-op | | | | | | + +-------+ +-------+---+---+ +-------+ +-------+---+---+ | Given | 07/16/20 | 80 mg | | | | | 18 3:35 | | | | | | PM PDT | | | | +-------+ +-------+---+---+ +---+---+ | | | +---+---+ documented in this encounter"
--- OUTSIDE RECORDS SUMMARY | ~2020-03-10 | XMS | Encounter Summary ---
Demographics + + + | Address | [address] | | | [place] [address] | + + + | Home Phone [...] Author + + + | Author | [facility] | + + + | Organization | [facility] | + + + | Address | Unknown | + + + | Phone | Unavailable | + + + Support + + +---------+ + | Name | Relationship | Address | Phone | + + +---------+ + | Marifer Valentin | ECON | Unknown | | + + +---------+ + Care Team Providers + +------+ + | Care Counter Sales Person Name | Role | Phone | + [...] | | | | | | | [place], [place] | | | | | | | [address] | | | | | | | Phone: | | | | | | | [phone] | | | | | | | Fax: | | | | | | | [phone] | + +--------+ + + + + Encounter Details +--------+---------+ + + + | Date | Type | Department | Care Team | Description | +--------+---------+ + + + | 12/20/ | Office | Digestive Health | Marita Hadley, | Gastroesophageal | | 2020 | Visit | Center at [facility] [address] | MD [address] | reflux disease, | | | | [address] | [place], [place] | esophagitis presence | | | | Mailcode: Center | [address] | not specified | | | | for Health and | [phone] | (Primary Dx); Morbid | | | | [facility] 2 | | obesity with BMI of | | | | [place], [place] | | 45.0-49.9, adult | | | | [address] | | ([facility]) | | | | [phone] | | | +--------+---------+ + + + [...] Name: Tiffanie Valentin : 1950 Medical Record: [id number] ID: Tiffanie Valentin is a 69-year-old female [...] file Gets together: Not on file Attends mu-ism service: Not on file Active member of club or organization: Not on file Attends meetings of clubs or organizations: Not on file Relationship status: Not on file Other Topics Concern Not on file Social History Narrative 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 Lives at home with daughter an [...] the fellow s note. Marita Hadley MD [facility] AT [facility] [address] Mailcode: [place] [address] documented in this encounter Plan of Treatment Not on filedocumented as of this encounter Visit Diagnoses + + | Diagnosis | + + | Gastroesophageal reflux disease, esophagitis presence not specified - Primary | + + | Morbid obesity with BMI of 45.0-49.9, adult ([facility]) | + + documented in this encounter
--- OUTSIDE RECORDS SUMMARY | ~2020-03-10 | XMS | Encounter Summary ---
Demographics + + + | Address | [address] | | | [place] [address] | + + + | Home Phone | | + + + | Preferred Language | Unknown | + + + | Marital Status | Single | + + + | Adventist Affiliation | Unknown | + + + [...] Team Providers + +------+ + | Care Hand Blocker Name | Role | Phone | + [...] [address] | | | | | ([facility]) | Rd | Center for | | | | | Procedures | [place], [place] | Health and | | | | | CONSULT TO | [address] | Healing, | | | | | BARIATRIC | Phone: | Building 2 | | | | | SURGERY | [phone] | [place], [place] | | | | | | Fax: | [address] | | | | | | [phone] | Phone: | | | | | | | [phone] | | | | | | | Fax: | | | | | | | [phone] | + +--------+ + + + + Encounter Details +--------+---------+ + + + | Date | Type | Department | Care Team | Description | +--------+---------+ + + + | 07/18/ | Office | Digestive Health | Shoshana Paniagua, | Severe obesity (BMI | | 2019 | Visit | Center at [facility] [address] | [address] | >= 40) ([facility]) | | | | [address] [facility] | [address] | (Primary Dx) | | | | for Health and | [place], [place] | | | | | [facility] [address] | [address] | | | | | [place], [place] | | | | | | [address] | | | | | | [phone] | | | +--------+---------+ + + + [...] of Visit: 2:00 until 3:01 (61 minutes kpem-et-vuxt with patient) SUBJECTIVE: Pt comes in alone. [...] Diet pepsi 4pm 4 Prunes 7pm Flannery's [facility] Grilled chicken salad with [facility] dressing + 20 oz crystal ligh t [...] 2 pre-surgery classes. 4. Call or send Swyft message to dietitian with any questions. Contact information was provided. Follow up with dietitian 1-2 weeks after surgery at first post-op visit. Shoshana Paniagua MS, RDN, CSOWM, LD, CDE [facility] Bariatrics [phone] documented in this e ncounter Plan of Treatment Not on filedocumented as of this encounter Procedures + +--------+ + + + | Procedure Name | Priori | Date/Time | Associated Diagnosis | Comments | | | ty | | | | + +--------+ + + + | NE MNT INITIAL | Routin | 07/18/2019 | Severe obesity | | | ASSESSMNT X15MIN | e | 3:03 PM | (BMI >= 40) ([facility]) | | | | | PDT | | | + +--------+ + + + documented in this encounter Visit Diagnoses + + | Diagnosis | + + | Severe obesity (BMI >= 40) (HCC) - Primary Morbid obesity | + + documented in this encounter
--- OUTSIDE RECORDS SUMMARY | ~2020-03-10 | XMS | Encounter Summary ---
Demographics + + + | Address | [address] | | | [place] [address] | + + + | Home Phone | | + + + | Preferred Language | Unknown | + + + | Marital Status | | + + + | Yazidism Affiliation | 1027 | + + + | Race | Unknown | + + + | Ethnic Group | Unknown | + + + Author + + + | Author | [facility] | | | and [place] | + + + | Organization | [facility] | | | and [place] | + + + | Address | Unknown | + + + | Phone | Unavailable | + + + Support + + +---------+ + | Name | Relationship | Address | Phone | + + +---------+ + | Mraifer Valentin | ECON | Unknown | | + + +---------+ + Care Team Providers + +------+ + | Care Tray Server Name | Role | Phone | + [...] | [facility] [place] | [address] | | | | | INTRA MA[address] | [address] | | | | | [address] | [place] | | | | | [place] | [phone] | | | | | [phone] | | | +--------+ + + + [...]
--- OUTSIDE RECORDS SUMMARY | ~2020-03-10 | XMS | Encounter Summary ---
Demographics + + + | Address | [address] | | | [place] [address] | + + + | Home Phone | | + + + | Preferred Language | Unknown | + + + | Marital Status | | + + + | Spiritism Affiliation | 1027 | + + + | Race | Unknown | + + + | Ethnic Group | Unknown | + + + Author + + + | Author | [facility] | | | and [place] | + + + | Organization | [facility] | | | and [place] [...] Team Providers + +------+ + | Care Drying Machine Tender Name | Role | Phone | + [...] | | | left upper | | [address] | | | | | extremity, | | Phone: | | | | | including | | [phone] | | | | | shoulder | | Fax: | | | | | Procedures | | [phone] | | | | | MI EXC TUMOR | | | | | | | SOFT TISSUE | | | | | | | UPPER | | | | | | | ARM/ELBOW | | | | | | | SUBQ 3+CM | | | | | | | MI EXC SKIN | | | | | [...] + + | 11/17/ | Hospital [facility] | Guille Roldan, | Basal cell carcinoma | | 2016 | Encounter | [facility] | MD [address] | of shoulder, left | | | | [facility] [address] | [address] | (Primary Dx); Soft | | | | [address] | [place] | tissue mass | | | | [place] [address] | [address] | | | | | [phone] | [phone] | | | | | | | [...] interact with your prescription medicines or other hvkp-vxo-eaarwss (OTC) drugs. Some pr escription medicines have [...] REPORT CASE: | [facility] X | | [id number]: [facility]Con[facility] Center[facility] Report [id number]: | | | Tiffanie Valentin Date of [...] | | | Received fresh, labeled "Brittaney Valentinjesus Santana", "A. Left upper armbasal | | [...] mass or lesion | | | isidentified. Roving Department Supervisor sections are submitted as follows: A1 | [...] - centralareas with | | | hemorrhage. (banner/[id number]) Dominique Ordaz M.D. 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 A | [...] 405Extremity-based Tumors. Am J Surg Pathol 2010; 34:0986-2483. | | | Methodology: Fluorescence in situ hybridization (FISH) for MDM2 | | | geneamplification (using MDM2/CEP12 probes and the Delivery [employer] | | | Metaferautomated scanning fluorescent microscope) is performed at | | | [place] [address]. Test results should be used in | | | conjunction with other availablelaboratory and clinical information. | | | This test was developed and itsperformance characteristics determined | | | by the Molecular PathologyLaboratory, [facility] | | | Laboratories. It has [...] Cheryl Ortiz MD. | | | Electronically rplril7911/23/2015 16:02 Performed at | | | [facility],[address] [place] [address] [address], [place], | | | [place] [address] CLIA#:[id number]: Unless otherwise | | | specified, a [...] to harbor | | |amplification of the 70v92-92 region, which includes the MDM2 (murine | [...] |Extremity-based Tumors. Am J Surg Pathol 2010; 34:3797-4791. | | | | | |Methodology: Fluorescence in situ hybridization (FISH) for MDM2 gene | | |amplification (using MDM2/CEP12 probes and the Resolvers Metafer | | |automated scanning fluorescent microscope) is performed at [facility], | | |[place]. [address]. | | | | | |Test results should be used in conjunction with other available | | |laboratory and clinical information. This test was developed and its | | |performance characteristics determined by the Molecular Pathology | | |Laboratory, [facility]. It has not been approved [...] signed | | |11/23/2015 16:02 Performed at [facility], | | |[address] [place] [address]#: | | |[id number] | | |Microscopic: Unless otherwise specified, a microscopic exam has been performed. | | | | | |Received Date: 11/17/2015 | | |Collection Date: 11/17/2015 | | |Referring Physician: Guille Roldan MD | | |Additional Physician copies: | | + + -------+ + + + + + | Performing | Address | City/State/[facility] [[email or web address] | Phone Number | | Organization | | | | + + + + + | REFERENCE LAB | [address] | [place] [address] | [phone] | | [facility] | [address] | | [...]
--- OUTSIDE RECORDS SUMMARY | ~2020-03-10 | XMS | Encounter Summary ---
Demographics + + + | Address | [address] | | | [place] [address] | + + + | Home Phone | | + + + | Preferred Language | Unknown | + + + | Marital Status | | + + + | Cheondoism Affiliation | 1027 | + + + | Race | Unknown | + + + | Ethnic Group | Unknown | + + + Author + + + | Author | [facility] | | | and [place] | + + + | Organization | [facility] | | | and [place] | [...] Team Providers + +------+ + | Care Credit Card Analyst Name | Role | Phone | + [...] | [facility] [place] | [address] [facility] [facility] | | | | | INTRA MA[address] | [address] | | | | | [address] | [place] | | | | | [place] | [phone] | | | | | [phone] | | | +--------+ + + + [...]
--- OUTSIDE RECORDS SUMMARY | ~2020-03-10 | XMS | Encounter Summary ---
Demographics + + + | Address | [address] | | | [place] [address] | + + + | Home Phone | | + + + | Preferred Language | Unknown | + + + | Marital Status | | + + + | Tenriism Affiliation | 1027 | + + + | Race | Unknown | + + + | Ethnic Group | Unknown | + + + Author + + + | Author | [facility] | | | and [place] | + + + | Organization | [facility] | | | and [place] [...] Team Providers + +------+ + | Care Install And Repair Technician Name | Role | Phone | [...] | [facility] [place] | [address] [facility] | | | | | GENERIC CON[address] | [address] | | | | | [place], | [place] [address] | | | | | [place] [address] | [phone] | | | | | [phone] | | | +--------+ + + + [...]
--- OUTSIDE RECORDS SUMMARY | ~2020-03-10 | XMS | Encounter Summary ---
Demographics + + + | Address | [address] | | | [place] [address] | + + + | Home Phone | | + + + | Preferred Language | Unknown | + + + | Marital Status | Single | + + + | Gnosticism Affiliation | Unknown | + + + [...] Team Providers + +------+ + | Care Sheet Ironworker Name | Role | Phone | + +------+ + | Stephanie Washington | PCP | | + +------+ + Encounter Details +--------+ + + + + | Date | Type | Department | Care Team | Description | +--------+ + + + + | 07/08/ | Documentati | Digestive Health | Clinic, Surgery | | | 2019 | on | Center at [facility] [address] | | | | | | [address] | | | | | | Mailcode: [place] | | | | | | for Health and | | | | | | Healing, Building 2 | | | | | | [place], [place] | | | | | | [address] | | | | | | [phone] | | | +--------+ + + + [...]
--- OUTSIDE RECORDS SUMMARY | ~2020-03-10 | XMS | Encounter Summary ---
Demographics + + + | Address | [address] | | | [place] [address] | + + + | Home Phone | | + + + | Preferred Language | Unknown | + + + | Marital Status | Single | + + + | Muslim Affiliation | Unknown | + + + [...] Providers + +------+ + | Care Electrical Tester Name | Role | Phone | + [...] Bill | | | | | | [place], [place] | | | | | | [address] | | | | | | [phone] | | | +--------+------+ + + + [...] results section. | | | | | ([facility]) Depression, | | | | | | [...] results section. | | | | | ([facility]) Depression, | | | | | | [...] B: | | | | | | Fatwire/CSPerformed | | | | | | by [address] | | | | | | [place] [facility] [place] | | | | | | [address] | | | | | | [phone].Househappy. | | | | | | [facility] MD, | | | | | [...] [facility] | [address] | [place], [place] | | | UNIV PTH - INTFC | | [address] | | + + + + + [...] [facility] | | | (ROC ALEXIS) | [address] | | REG UNIV | | | SERUM | [place], [facility] | | PTH - INTFC | | | | [address] | | | | | | [phone].[facility]. | | | | | | Jeffrey [...] B: | | | | | | Househappy.[employer]/CS | | | | + + + + + + + + | Specimen | + + | Blood - Blood | | (substance) | + + + + + + + | Performing | Address | City/State/Zipcode | Phone Number | | Organization | | | | + + + + + | [facility] | [address] | [place], [place] | | | UNIV PTH - INTFC | | [address] | | + + + + + [...] | + + + + + | [facility] | [address] | [place] [address] | | | SERVICES, CORE | ABEBA [...] | + + + + + | [facility] | [address] [facility] | [place] [address] | | | DEANDRE, [place] | ABEBA [...] | | | | | determined by [facility] | | | | | | Laboratories. See | | | | | | Compliance Statement B: | | | | | | Househappy.[employer]/CSPerformed | | | | | | by [address] | | | | | | [place] [facility] [place] | | | | | | [address] | | | | | | [phone].Househappy. | | | | | | com, [...] + | [facility] | [address] [facility] | [place], [place] | | | UNIV PTH - INTFC | | [address] | | + + + + + [...] INTFC | | | | determined by [facility] | | | | | | Equals6. See | | | | | | Compliance Statement B: | | | | | | Fatwire/CSPerformed | | | | | | by [address] | | | | | | [place], [place] | | | | | | [address] | | | | | | [phone].Crowd Castlab. | | | | | | Jeffrey [...] [facility] | [address] | [place], [place] | | | UNIV PTH - INTFC | | [address] | | + + + + + [...] | + + + + + | [facility] | [address] | [place] [address] | | | SERVICES, [place] FOR | | | | | HEALTH [...] | | | | | determined by [facility] | | | | | | Equals6. See | | | | | | Compliance Statement B: | | | | | | Househappy.[employer]/CSPerformed | | | | | | by [address] | | | | | | [place] [facility] [place] | | | | | | [address] | | | | | | [phone].Househappy. | | | | | | [facility] hospitalJeff[facility] MD, | | | | | [...] [facility] | [address] | [place], [place] | | | UNIV PTH - INTFC | | [address] | | + + + + + [...] + | [facility] | [address] | [place] [address] | | | SERVICES, CORE | PARK [...] [facility] | [address] | [place] [address] | | | SERVICES, CORE | PARK [...] | + + + + + | [email or web address] | [address] | [place] [address] | | | SERVICES, SPECIAL | ABEBA [...] | [facility] | | considered for monitoring chcf glycemic control in patients with: | LABORATORY [...] | + + + + + | [facility] | [address] | [place] [address] | | | SERVICES, SPECIAL | PARK [...] | + + + + + | [facility] | [address] | [place] [address] | | | DEANDRE, ROSALIA | ABEBA [...] | | | | | determined by [facility] | | | | | | Laboratories. See | | | | | | Compliance Statement B: | | | | | | Househappy.[employer]/CSPerformed | | | | | | by [address] | | | | | | [place] [facility] [place] | | | | | | [address] | | | | | | [phone].EpiCrystalslab. | | | | | | com, [...] [facility] | [address] | [place], [place] | | | UNIV PTH - INTFC | | [address] | | + + + + + [...] SERVICES, | | | | | | [facility] FOR | | | | | | [...] | | | LABORATORY | | | FINNISH | | | SERVICES, | | | [...] MDRD equation recommended by the National | [facility] | | Kidney Disease Education Program. Estimated [...] | + + + + + | [facility] | [address] | [place] [address] | | | [facility] | | | | | HEALTH + HEALING | | | | + + + + + documented in this encounter Visit Diagnoses Not on filedocumented in this encounter"
--- OUTSIDE RECORDS SUMMARY | ~2020-03-10 | XMS | Encounter Summary ---
Demographics + + + | Address | [address] | | | [place] [address] | + + + | Home Phone | | + + + | Preferred Language | Unknown | + + + | Marital Status | Single | + + + | Christian Affiliation | Unknown | + + + | Race | White | + + + | Ethnic Group | Not or | + + + Author + + + | Author | [facility] | + + + | Organization | [facility] | + + + | Address | Unknown | + + + | Phone | Unavailable | + + + Support + + +---------+ + | Name | Relationship | Address | Phone | + + +---------+ + | Marifer Valentin | ECON | Unknown | | + + +---------+ + Care Team Providers + +------+ + | Care Ore Miner Name | Role | Phone | + [...] | 2019 | Visit | [facility] at [facility] [address] | | BMI of 45.0-49.9, | | | | [address] | | adult (HCC) (Primary | | | | Mailcode: Center | | Dx) | | | | for Health and | | | | | | [facility] [address] | | | | | | [place], [place] | | | | | | [address] | | | | | | [phone] | | | +--------+---------+ + + + [...] Gastrectomy. Documented Time of Class: 60 minutes avun-bo-hadb with patient OBJECTIVE: Ht Readings from Last [...] Shoshana Paniagua, MS, RDN, CSOWM, LD, CDE [facility] [phone] documented in this e ncounter Plan of Treatment Not on filedocumented as of this encounter Visit Diagnoses + + | Diagnosis | + + | Morbid obesity with BMI of 45.0-49.9, adult (HCC) - Primary | + + documented in this encounter
--- OUTSIDE RECORDS SUMMARY | ~2020-03-10 | XMS | Encounter Summary ---
Demographics + + + | Address | [address] | | | [place] [address] | + + + | Home Phone | | + + + | Preferred Language | Unknown | + + + | Marital Status | Single | + + + | Caodaism Affiliation | Unknown | + + + [...] Team Providers + +------+ + | Care Mgmt Analyst Name | Role | Phone | + +------+ + | Stephanie Washington | PCP | | + +------+ + Reason for Referral Consultation (Routine) + +---------+ + + + + | Status | Reason | Specialty | Diagnoses / | Referred By | Referred To | | | | | Procedures | Contact | Contact | + +---------+ + + + + | Pending | Other | Pain | Diagnoses | Jay Jay, | Loan Analyst Psych | | Review | | Management | Morbid | ROSIO White | [facility] [address] | | | | | obesity with | [address] | | | | | BMI of | [address] | Mailcode: | | | | | 45.0-49.9, | [place], [place] | [facility] | | | | | adult ([facility]) | [address] | for Health | | | | | Depression, | Phone: | and Healing, | | | | | unspecified | [phone] | Building 1, | | | | | depression | Fax: | 15th Floor | | | | | type | [phone] | [place], [place] | | | | | Hypertension | | [address] | | | | | , | | Phone: | | | | | unspecified | | [phone] | | | | | type | | Fax: | | | | | Obstructive | | [phone] | | | | | sleep apnea [...] | + +---------+ + + + + Reason for Visit + + + | Reason | Comments | + + + | New patient | | | consultation | | + + + Consultation (Routine) + + + + + + + | Status | Reason | Specialty | Diagnoses / | Referred By | Referred To | | | | | Procedures | Contact | Contact | + + + + + + + | Pending | BAR: | Surgery | Diagnoses | Ly Vo | Bar | | Review | Scheduled | | Severe | MD Adriane | Bariatri Surg | | | with 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 | | obesity (BMI | [address] | [address] [address] | | | | | >= 40) | Angel Thompson | [address] | | | | | ([facility]) | Rd | Mailcode: | | | | | Procedures | [place], [place] | [place] for | | | | | CONSULT TO | [address] | Health and | | | | | BARIATRIC | Phone: | Healing, | | | | | SURGERY | [phone] | [facility] | | | | | | Fax: | [place], [place] | | | | | | [phone] | [address] | | | | | | | Phone: | | | | | | | [phone] | | | | | | | Fax: | | | | | | | [phone] | + + + + + + + Encounter Details +--------+---------+ + + + | Date | Type | Department | Care Team | Description | +--------+---------+ + + + | 08/19/ | Office | Digestive Health | Cindy Goyal, | Morbid obesity with | | 2019 | Visit | [facility] | 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 [address] | BMI of 45.0-49.9, | | | | [address] | [place], [place] | adult ([facility]) (Primary | | | | Mailcode: Center | [address] | Dx); Depression, | | | | for Health and | | unspecified | | | | Healing, Building 2 | | depression type; | | | | [place], [place] | | Hypertension, | | | | [address] | | unspecified type; | | | | | | Obstructive sleep | | | | | | apnea; | | | | | | Gastroesophageal | | | | | | reflux disease, | | | | | | esophagitis presence | | | | | | not specified; | | | | | | Anemia, unspecified | | | | | | type; | | | | | | Hyperlipidemia, | | | | | | unspecified | | | | | | hyperlipidemia type; | | | | | | Bilateral chronic | | | | | | knee pain; Anxiety; | | | | | | Incisional hernia, | | | | | | without obstruction | | | | | | or gangrene; Former | | | | | | smoker | +--------+---------+ + + + Social History [...] + + + | Blood Pressure | 135/75 | 08/19/2019 12:56 PM | | | | | PDT | | + + + + + | Pulse | 70 | 08/19/2019 12:56 PM | | | | | PDT | | + + + + + | Temperature | - | - | | + + + + + | Respiratory Rate | 16 | 08/19/2019 12:56 PM | | | | | PDT | | + + + + + | Oxygen Saturation | - | - | | + + + + + | Inhaled Oxygen | - | - | | | Concentration | | | | + + + + + | Weight | 129.7 kg (286 lb) | 08/19/2019 12:56 PM | | | | | PDT | | + + + + + | Height | 167.6 cm (5' 6") | 08/19/2019 12:56 PM | | | | | PDT | | + + + + + | Body Mass Index | 46.16 | 08/19/2019 12:56 PM | | | | | PDT | | + + + + + documented in this encounter Patient Instructions Patient Instructions Cindy Goyal FNP - 08/19/2019 1:05 PM PDT+ Dietitian consultati on + Physical therapy referral for Bariatric Surgery Prehabilitation. During this visit they w ill assess your muscle strength and design a exercise program for you. + Vitamins we would like you to begin taking a multivitamin, one containing magnesium, if y ou haven't already. Here are 3 inexpensive and widely available choices: -Centrum for Adults -Equate version of Centrum -Dover daily multivitamin + Tobacco: do not smoke: we will need a negative nicotine test to proceed. Please be advise d that an additional nicotine lab will be drawn with in 30 days of surgery as well. + Labs needed: CBC, CMP, Vitamin B12, Vitamin B1, Vitamin D, MMA, Homocysteine, PTH, Katarina tin, Iron/TIBC, A1c, stool H. Pylori, Vitamin A, Vitamin E, INR, Zinc, Copper and nicotine a nd alcohol screen. Will notify of results and replace as needed. Please go to the 1st floor of the [facility] 2 building and have these labs done. + Mammogram: follow the plan as established by your PCP. Have copies of any test results d one during our preop phase faxed to us. + GERD (Heartburn): continue the 40 mg daily dose of Omeprazole. Please ask your PCP to sen d us copies of the capsule endoscopy results. + Pre-op Psychological Evaluation: Your referral is at [facility], the Pain Management Office mikayla l call you in the next week to schedule. + CPAP compliance: you will need to show CPAP compliance prior to surgery + EKG and Echocardiogram: Please have these ordered by your PCP for preop purposes and a co py of the results faxed to us. + Cardiology Consult: A cardiology provider needs to evaluate your cardiac function and let us know if you can proceed with with bariatric surgery. Please request from your PCP to a local truckman and have copies of the office visit no nitesh and any test results faxed to us. If you have an established truckman, we will need official documentation from them iden tifying your cardiac risk stratification prior to surgery. + Weight Management classes: 2 classes are required in addition to your private appointment with the universal grinder operator. These classes will be scheduled apporoximately 1 month apart to allow t javad for you to put the teaching into action. Please call to schedule these classes after you have had your Dietitian Appo intment. Ask for Kelly in bariatrics. + Insurance requirements: your insurance requires: 4 consecutive month diet Each insurance can have different requirements. Please CHECK with your insurance company to be sure you are meeting their requirements Please be aware that the pre-surgery work up is a highly individualized process. It could t lisseth up to 6-12 months to complete. It is important you stay on top of your homework list to avoid even longer delays to surger y. + Recommended weight loss: Every patient has a individual weight loss target. It takes int o consideration your current weight and BMI. Your target most likely will be different than anyone elses target. If your BMI is less than 50 then your recommended weight loss target is: 5% of your current weight today or 14 pounds Please contact us if you are having trouble with weight loss, we are here to help! Some people will need to lose more weight than that, in order for surgery to be safely comp leted. You can over eat ANY of the surgeries. The surgery is a tool with diet and exercise to help you obtain a healthy weight. + My Chart Sign up for [employer] so that we can communicate easily back and forth Once the above list is completed and copies have been received by our office, we will submi t for insurance authorization then schedule with the surgeon. Potential Contraindications to Bariatric Surgery Age over 69 BMI over 60 Oxygen dependence Immobility wheelchair or bed bound Cardiac issues such as ischemic heart disease as indicated on cardiac stress test or cardia c catheterization; severe or uncompensated heart failure which may be indicated by a decreas ed ejection fraction. Pulmonary issues such as untreated sleep apnea, obesity hypoventilation syndrome, severe CO PD or asthma. Liver disease such as cirrhosis, esophageal varices, or portal hypertension. Severe, untreated renal disease. Rheumatologic and other diseases requiring immune suppressant medications. Untreated or active cancer. Untreated psychological disability. If you have any of the above conditions, you may not be a candidate for bariatric surgery. Our program will perform a thorough evaluation prior to making such a determination. This evaluation may involve testing or consultations. We will make every effort to notify patien ts who are not candidates for surgery as early in the process as possible, but it is importa nt to realize that the surgeon may make that determination later in the process. Clearance for surgery by your PCP or other providers does not guarantee that the [facility] Bariatric Surger y program will deem you a surgical candidate. documented in this encounter Progress Notes Cindy Goyal FNP - 08/19/2019 1:05 PM PDTFormatting of this note might be different f rom the original. BARIATRIC SURGERY INITIAL VISIT Provider: ROSIO Robb-C, MPH Referring Provider: Marita Hadley MD Reason for Requested Consultation: Initial evaluation for bariatric surgery. Tiffanie chaudhary is interested in Serafin en y gastric bypass. Subjective: Tiffanie Valentin is retired. Lives with daughter and granddaughter will be her primary suppo rt following surgery. She was seen in our Foregut clinic 2 months ago and referred to us for bariatric evaluation : ASSESSMENT: Tiffanie Valentin is a 68-year-old female patient with severe obesity (BMI 47.4), chronic inc arcerated incisional hernia, HTN, GERD, bilateral chronic knee pain, anxiety, depression, an d hemorrhoids presenting with chronic intermittent episodes of dry heaves, sweats, and abdom inal discomfort found to have large hiatal hernia. She has no urgent indications for repair of this hiatal hernia and is at high risk for recurrent hiatal hernia given her severe obesi ty. She is interested in weight loss to address her overall medical problems. Her mild symptoms may be consistent with Jason's ulcers given relief from eating. She is therefore indicate d for entry into the bariatric surgery program for education and evaluation. PLAN: 1. Referral to bariatric surgery program 2. Referral to medical weight loss program, Dr. Deng 3. Recommend doubling omeprazole dosing for potential Jason's ulcers 4. RTC in 6 months BP 135/75 | Pulse 70 | Resp 16 | Ht 1.676 m (5' 6") | Wt 129.7 kg (286 lb) | BMI 46.16 kg/m | BSA 2.46 m History of Present Illness: Tiffanie Valentin is a 69 y.o. female who presents with a past m edical history of morbid obesity with a Body mass index is 46.16 kg/m. and associated slee p apnea, osteoarthritis, GERD (gastroesophageal reflux disease), hypertension and hyperlipid emia. She has failed prior attempts at sustained dietary/medical weight loss and desires rosario rgical weight loss in order to "reach healthy weight and maintain for life". Previous Weight Loss Attempts: Duration of obesity: 58 years. Onset of obesity at age 11 First diet attempts at age 11 Personally initiated diets: TOPS in 1975 Programmatic diets: Weight Watchers in 2008 Provider Monitored diet: n/a Use of Redux or Phen/fen: yes in 1996 for 1 year Transthoracic ECHO: no Caodaism or cultural reason you would refuse blood products? no All previous chart notes from PCP reviewed, previous tests and labs reviewed. Allergies: No Known Allergies Medications Current Outpatient Medications: aspirin chewable 81 mg oral tablet,chewable, Chew and swall ow 81 mg once daily at bedtime., Disp: , Rfl: cholecalciferol (vitamin D3) (VITAMIN D3 ORAL), Take by mouth., Disp: , Rfl: enalapril 20 mg oral tablet, Take 20 mg by mouth two times daily., Disp: , Rfl: FLUTICASONE FUROATE NASL, Instill in nose., Disp: , Rfl: hydroCHLOROthiazide 25 mg oral tablet, Take 12.5 mg by mouth once daily., Disp: , Rfl: omeprazole 20 mg oral capsule,delayed release(DR/EC), Take 20 mg by mouth once daily. Admin ister 30 to 60 minutes before meals, Disp: , Rfl: simvastatin 20 mg oral tablet, Take 20 mg by mouth once daily in the evening., Disp: , Rfl: venlafaxine 75 mg oral tablet, Take 75 mg by mouth once daily., Disp: , Rfl: History: Past Medical History: Diagnosis Date Alcoholism [...] coronaries Egd (esophagogastroduodenoscopy) 07/16/2018 Left knee surgery Social History Socioeconomic History Marital status: Single [...] file Gets together: Not on file Attends orthodoxy service: Not on file Active member of club or organization: Not on file Attends meetings of clubs or organizations: Not on file Relationship status: Not on file Other Topics Concern Not on file Social History Narrative 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 Lives at home with daughter an d grand-daughter. Non-smoker. 3 dogs (2x pugs, mixed breed) and 2 cats at home. Family History Problem Relation Thyroid disease Mother Heart Attack Father Review of Systems: General: Denies symptoms of fatigue, weakness, unintentional weight loss, fevers, chills, n ight sweats. Neurologic: The patient denies any symptoms of neurological impairment or TIAs; denies dipl opia, dysphasia or unilateral disturbance of motor or sensory function. Denies loss of edwina ce or vertigo, persistent headaches, numbness or paresthesias. No history of seizure disorde r. Eyes/Ears/Nose/Throat: Denies visual changes, sore throat, dental pain, hoarseness, dysphag ia, oral or tongue lesions. Respiratory: has shortness of breath on heavy exertion, none at rest. Denies cough or wheez ing. Denies nocturnal snoring, daytime drowsiness or morning headaches. Denies history of as thma. Has sleep apnea. She is using CPAP consistently, states even with naps. She is a former smoker, quit 'years ago'. Cardiovascular: Denies exertional chest pain, palpitations, syncope, orthopnea, or paroxysm al nocturnal dyspnea. Denies history of lower extremity edema. Has hypertension, medicated. Has hyperlipidemia, medicated, last lipid panel 06/28/19. Denies CHF, [place], ischemic heart disea se, DVT/PE, or pulmonary hypertension. States unable to climb two flights of stairs due to her knees. 12/05/14 NM Myocardial Perfusion Scan Pharmacologic at the [facility], [place]: FINAL IMPRESSION: 1. Abnormal study. 2. There is a moderate-sized area of mild to moderate ischemia in the distal half of the anterior wall and the anterior and lateral apex. No prior infarction. 3. Overall left ventricular systolic function is moderately dilated with normal systolic function, EF 53%. 4. Stress testing results are consistent with normal response to Lexiscan. 01/02/15 Interventional Cardiology at [place]: PROCEDURES PERFORMED: 1. Left Heart Catheterization for LV pressures 2.Left Venticulography using 15 cc per sec for 20 cc 3.Coronary Angiography DESCRIPTION OF PROCEDURE: Informed consent was obtained from the patient, and a time-out was performed to verify the patient's identification and planned procedure.The patient's right groin was then prepped and draped in the usual sterile fashion, and anesthetized with 1% lidocaine. A 6 austrian sheath was placed into the right radial artery A 6 austrian pigtail cathether was advanced into the left ventricle, pressures were measured, and left ventriculography was performed. Standard angiography was performed in multiple views using 6 Finnish tiger catheterto engage the left and right coronary artery, respectively. JL3.5 guide was used to get better pictures of the Left anterior descending artery selectively. Radial compression device was utilized to achieve successful hemostasis in the raidal artery.there were no immediate complications. Estimated blood loss was 10 cc. FINDINGS: Hemodynamics: Left ventricular end-diastolic pressure (LVEDP) is 25 mm Hg.There is no significant aortic valve gradient. Left Ventriculography: Chamber size appears to be normal.There are no discrete wall motion abnormalities, and the ejection fraction is estimated at 60%.No significant mitral regurgitation noted. Left main coronary artery: no significant stenosis. Left anterior descending coronary artery: courses around the apex, no significant stenosis. Circumflex coronary artery: no significant stenosis. Right coronary artery: dominant, no significant stenosis. CONCLUSIONS: 1.normal cornaries 2.normal ejection fraction Family hx: Family History Problem Relation Thyroid disease Mother Heart Attack Father Gastrointestinal: Denies anorexia. Has a hx of abdominal pain with intermittent nausea and dry heaves, states since increasing her Omeprazole from 20 mg QD to [address] Hadley's instruction that those symptoms have resolved. Denies flank pain. Denies dysphagia at presen t though has a hx of it. Denies change in bowel habits, black or bloody stools. Denies histo ry of ulcers. Has a hx of incisional hernia at prior oophorectomy site. Has GERD with hiatal hernia found on recent UGI, states GERD is generally well controlled on PPI, denies persist ent reflux symptoms. Denies history of liver disease or jaundice. Pt had an EGD in [place] 07/16/18 that she states was followed by a capsule endoscopy a c ouple of months later. The EGD report is in [place], no capsule endoscopy report available. Addit ionally she had an UGI done at the time of her appt with our Foregut team. 06/14/19 Xray Esophagram at [facility]: IMPRESSION: Stomach containing sliding-type large hiatal hernia. 07/16/18 EGD at [facility] ([place], [place]): 07/16/18 Pathology: Abd surgeries: lap oophorectomy 2011. Genitourinary: has stress urinary incontinence. Denies history of kidney stones. Denies men strual irregularity and history of endometriosis. Denies history of abnormal PAP's. Current method of control is: postmenopausal. Musculoskeletal: has OA of both knees, states in need of bilateral knee replacements and bull s been told her weight needs to be 250 lbs or less. Denies new symptoms of joint pain, swell ing, myalgias or back pain. Skin: denies intertrigenous skin infections. Denies recent rashes, sores, or skin changes. Psychological: has OCD, anxiety and depression, states well controlled. Has a history of a lcohol abuse, sober since 09/20/1999, attends TOPS meetings regularly since 09/20/1999. Partha es thoughts of suicide or hallucinations. Heme/Lymphatic: has a history of anemia. The patient denies abnormal bruising, abnormal ble eding or enlarged lymph nodes. Metabolic: Denies symptoms of hypo or hyperthyroidism, last TSH 1.23 on 06/28/19. Denies hist ory of diabetes, last A1c 6.0 on 10/31/17. Denies history of gout. Health maintenance: PAP: 07/13/15 Mammogram: 11/01/18: Colonoscopy: 08/13/18 and reports being told 5-year recall OBJECTIVE BP 135/75 | Pulse 70 | Resp 16 | Ht 1.676 m (5' 6") | Wt 129.7 kg (286 lb) | BMI 46.16 kg/m | BSA 2.46 m Physical exam: General: Alert and cooperative. Neuro: Oriented x 3. CN III-XII grossly intact. No focal deficits. HEENT: Oropharynx clear without lesion or exudate. Neck: Neck supple. No adenopathy. Respiratory: Good diaphragmatic excursion. Cardiac: Regular rate and rhythm, no murmur, gallop or bruits. Extremities: No lower extremity edema. Abdomen: Obese, soft, nontender, right paramedian abdominal hernia, not reducible, non-pain ful and no erythema or warmth on exam, no other appreciable masses or hernia. Psych: No problems noted. Impression: Tiffanie Valentin meets and or exceeds NIH criteria for morbid obesity with a Body mass index is 46.16 kg/m. and comorbidities related to obesity including sleep apnea, osteoarthritis , stress urinary incontinence, GERD (gastroesophageal reflux disease), hypertension and hype rlipidemia, which may be improved with bariatric surgery. Records have been reviewed from [facility] and several attempts have been made to lose weight over the past years without succes s. She qualifies for medically necessary weight loss surgery to control co-morbidities. She has attended the Public Informational Session in which risks and benefits of bariatric surgery were discussed. Discussion of realistic expectations of bariatric surgery was held today. A Bariatric notebook with pre-op, inter-op and post-op guidance and information was provide d for the patient today. #Morbid obesity -Body mass index is 46.16 kg/m. -gave preop weight loss goal of 5% of of 291 pounds from her start date here on 07/18/19 wit h our universal grinder operator, for a preop weight loss goal of 15 pounds -pt counseled on the possible risk of GERD symptoms after sleeve gastrectomy -pt counseled on the risk of marginal ulcers with RYGB and the need to abstain from NSAIDs post surgery as these increase risk of ulcers #Incisional hernia -reviewed red flags and when to seek care -[facility] #GERD/Hiatal hernia -subjective improvement of the chronic intermittent abdominal pain with associated nausea a nd dry heaves since making the dose change to 40 mg QD of Omeprazole, advised pt to continue that dose -pt to request copies of the capsule endoscopy faxed to us for review, will notify her if a dditional evaluation is needed prior to our surgery #Former smoker -pt counseled on risks of tobacco use prior to, during and after surgery including but not limited to delayed healing and ulcer formation -pt counseled that we will require a negative nicotine lab to proceed with the bariatric pr ogram. Pt advised a nicotine lab will be drawn with initial lab set and within 30 days of rosario rgery #Sleep apnea -pt counseled on the importance of CPAP compliance and inherent risks of anesthesia and griselda félix with uncontrolled sleep apnea. Pt advised we will require documentation of CPAP complia nce -followed by sleep medicine #HTN/HLD -pt will need a preop EKG and Echocardiogram, pt to request orders for those from her PCP t o be done locally and copies of results sent to us. She may need cardiology preop risk asses sment based on results of those studies -followed by PCP #OA bilateral knees -followed by orthopedics #Anxiety/Depression/OCD/Hx alcoholism -pt nearing 20 years sober from alcohol abuse and remains in connection with her TOPS group , reinforced increased risk of alcohol abuse following RYGB given rapid alcohol absorption a nd encouraged her to maintain her sobriety and support group f/u -consult visit with our bariatric psychology team -followed by PCP #Health maintenance -pt to follow the plan for mammogram recall. She states she had the 6 month left breast ult rasound in April and was told the site in question was a hemangioma and that she is due for b ilateral mammogram in 10/2019. Asked pt to have copies of the left breast ultrasound sent to us as well as the mammogram reports when they come due in 10/2019 -followed by PCP Plan: The following plan has been provided to Tiffanie Valentin: Preoperative Evaluation for Bariatric Surgery: +patient willing and able to be compliant with post operative treatment plan + Dietitian consultation + Physical therapy referral for Bariatric Surgery Prehabilitation. During this visit they w ill assess your muscle strength and design a exercise program for you. + Vitamins we would like you to begin taking a multivitamin, one containing magnesium, if y ou haven't already. Here are 3 inexpensive and widely available choices : -Centrum for Adults -Equate version of Centrum -Dover daily multivitamin + Tobacco: do not smoke: we will need a negative nicotine test to proceed. Please be advise d that an additional nicotine lab will be drawn with in 30 days of surgery as well. + Labs needed: CBC, CMP, Vitamin B12, Vitamin B1, Vitamin D, MMA, Homocysteine, PTH, Katarina tin, Iron/TIBC, A1c, stool H. Pylori, Vitamin A, Vitamin E, INR, Zinc, Copper and nicotine a nd alcohol screen. Will notify of results and replace as needed. Please go to the 1st floor of the [facility] 2 building and have these labs done. + Mammogram: follow the plan as established by your PCP. Have copies of any test results d one during our preop phase faxed to us. + GERD (Heartburn): continue the 40 mg daily dose of Omeprazole. Please ask your PCP to sen d us copies of the capsule endoscopy results. + Pre-op Psychological Evaluation: Your referral is at [facility], the Pain Management Office mikayla l call you in the next week to schedule. + CPAP compliance: you will need to show CPAP compliance prior to surgery + EKG and Echocardiogram: Please have these ordered by your PCP for preop purposes and a co py of the results faxed to us. + Cardiology Consult: A cardiology provider needs to evaluate your cardiac function and let us know if you can proceed with with bariatric surgery. Please request from your PCP to a local truckman and have copies of the office visit no nitesh and any test results faxed to us. If you have an established truckman, we will need official documentation from them iden tifying your cardiac risk stratification prior to surgery. + Weight Management classes: 2 classes are required in addition to your private appointment with the universal grinder operator. These classes will be scheduled apporoximately 1 month apart to allow t javad for you to put the teaching into action. Please call to schedule these classes after you have had your Dietitian Appo judi. Ask for Kelly in bariatrics. + Insurance requirements: your insurance requires: 4 consecutive month diet Each insurance can have different requirements. Please CHECK with your insurance company to be sure you are meeting their requirements Please be aware that the pre-surgery work up is a highly individualized process. It could t lisseth up to 6-12 months to complete. It is important you stay on top of your homework list to avoid even longer delays to surger y. + Recommended weight loss: Every patient has a individual weight loss target. It takes int o consideration your current weight and BMI. Your target most likely will be different than anyone elses target. If your BMI is less than 50 then your recommended weight loss target is: 5% of your current weight today or 14 pounds Please contact us if you are having trouble with weight loss, we are here to help! Some people will need to lose more weight than that, in order for surgery to be safely comp leted. You can over eat ANY of the surgeries. The surgery is a tool with diet and exercise to help you obtain a healthy weight. + My Chart Sign up for Multispectral Imagingt so that we can communicate easily back and forth Once the above list is completed and copies have been received by our office, we will submi t for insurance authorization then schedule with the surgeon. Potential Contraindications to Bariatric Surgery Age over 69 BMI over 60 Oxygen dependence Immobility wheelchair or bed bound Cardiac issues such as ischemic heart disease as indicated on cardiac stress test or cardia c catheterization; severe or uncompensated heart failure which may be indicated by a decreas ed ejection fraction. Pulmonary issues such as untreated sleep apnea, obesity hypoventilation syndrome, severe CO PD or asthma. Liver disease such as cirrhosis, esophageal varices, or portal hypertension. Severe, untreated renal disease. Rheumatologic and other diseases requiring immune suppressant medications. Untreated or active cancer. Untreated psychological disability. If you have any of the above conditions, you may not be a candidate for bariatric surgery. Our program will perform a thorough evaluation prior to making such a determination. This evaluation may involve testing or consultations. We will make every effort to notify patien ts who are not candidates for surgery as early in the process as possible, but it is importa nt to realize that the surgeon may make that determination later in the process. Clearance for surgery by your PCP or other providers does not guarantee that the [facility] Bariatric Surger y program will deem you a surgical candidate. I have spent 60 min with this pt face to face. Over 50% of the visit was counseling on the above listed content. ? I have also spent > 31 min prior to this visit performing chart review of the patients prim jeannie care notes, labs, imaging, and previous clinic visits to other departments. GWEN Robb, MPH Bariatric Surgery Nurse Practitioner [facility] | [address] | [place], [place] | [address] | documented in this encounter Plan of Treatment + + +--------+ + + | Name | Type | Priori | Associated Diagnoses | Order Schedule | | | | ty | | | + + +--------+ + + | [facility]. [facility], FECAL | Lab | Routin | Morbid obesity | Expected: 08/19/2019 | | EIA | | e | with BMI of | (Approximate), | | | | | 45.0-49.9, adult | Expires: 09/19/2020 | | | | | (HCC) Depression, [...] | | or gangrene | | + + +--------+ + + | CBC (HEMOGRAM) ONLY | Lab - | Routin | Morbid obesity | Ordered: 08/19/2019 | | | [facility] | e | with BMI of | | | | Performable | | 45.0-49.9, adult | | | | s | | ([facility]) Depression, | | | | | [...] | | or gangrene | | + + +--------+ + + documented as of this encounter Procedures + +--------+ + + + | Procedure Name | Priori | Date/Time | Associated Diagnosis | Comments | | | ty | | | | + +--------+ + + + | CBC (HEMOGRAM) ONLY | Routin | 08/19/2019 | Morbid obesity | Results for this | | | e | 3:54 PM | with BMI of | procedure are in the | | | | PDT | 45.0-49.9, adult | results section. | | | | | ([facility]) Depression, | | | | | [...] results section. | | | | | ([facility]) Depression, | | | | | [...] + + documented in this encounter Results CBC (HEMOGRAM) ONLY (08/19/2019 3:54 PM PDT) + + + + + + | Component | Value | Ref Range | Performed | Pathologist | | | | | At | Signature | + + + + + + | WHITE CELL | 6.28 | 3.50 - 10.80 | [facility] | | | COUNT | | K/cu mm | LABORATORY | | | | | | SERVICES, | | | | | | [facility] + | | | | | | [facility] | | + + + + + + | RED CELL | 4.68 | 4.00 - 5.20 | [facility] | | | COUNT | | M/cu mm | LABORATORY | | | | | | SERVICES, | | | | | | [facility] + | | | | | | [facility]ALING | | + + + + + + | HEMOGLOBIN | 13.7 | 12.0 - 16.0 | [facility] | | | | | g/dL | LABORATORY | | | | | | SERVICES, | | | | | | [facility] + | | | | | | [facility]ALING | | + + + + + + | HEMATOCRIT | 41.7 | 36.0 - 46.0 % | [facility] | | | | | | LABORATORY | | | | | | SERVICES, | | | | | | [facility] | [facility] + | | | | | | HEALING | | + + + + + + | MCV | 89.1 | 80.0 - 100.0 fL | [facility] | | | | | | LABORATORY | | | | | | SERVICES, | | | | | | [facility] | | [facility] + | | | | | | [facility]ALING | | + + + + + + | MCHC | 32.9 | 32.0 - 36.0 | [facility] | | | | | g/dL | LABORATORY | | | | | | SERVICES, | | | | | | [facility] | [facility] + | | | | | | [facility]ALING | | + + + + + + | RDW SD | 50.1 (H) | 35.1 - 46.3 fL | [facility] | | | | | | LABORATORY | | | | | | SERVICES, | | | | | | [facility] + | | | | | | [facility]ALING | | + + + + + + | PLATELET | 243 | 150 - 400 K/cu | [facility] | | | COUNT | | mm | LABORATORY | | | | | | SERVICES, | | | | | | [facility] + | | | | | | [facility]ALING | | + + + + + + | MPV | 10.6 | 9.7 - 12.3 fL | [facility] | | | | | | LABORATORY | | | | | | SERVICES, | | | | | | [facility] | [facility] + | | | | | | HEALING | | + + + + + + | NRBC% | 0.0 | 0.0 - 0.3 % | [facility] | | | | | | LABORATORY | | | | | | SERVICES, | | | | | | [facility] | [facility] + | | | | | | [facility]ALING | | + + + + + + | NRBC# | 0.00 | 0.00 - 0.02 | [facility] | | | | | K/cu mm | LABORATORY | | | | | | SERVICES, | | | | | | [facility] | [facility] + | | | | | | HEALING | | + + + + + + + + | Specimen | + + | Blood - Blood | | (substance) | + + + + + + + | Performing | Address | City/State/Zipcode | Phone Number | | Organization | | | | + + + + + | [facility] | [address] | [place] [address] | | | SERVICES, [facility] | | | | | HE[facility] + HEALING | | | | + + + + + ZINC, SERUM (08/19/2019 3:54 PM PDT) + [...] | | | | | determined by [facility] | | | | | | Laboratories. See | | | | | | Compliance Statement B: | | | | | | [employer]com/CSPerformed | | | | | | by [employer],[address] | | | | | | [address], [facility] [place] | | | | | | [address] | | | | | | [phone].[employer]. | | | | | | com, [...] + + | [facility] | [address] [address] [facility] | [place], [place] | | | UNIV PTH - INTFC | | [address] | | + + + + + [...] [facility] | | | (ROC ALEXIS) | [facility],[address] | | REG UNIV | | | SERUM | [facility] [place], [place] | | PTH - INTFC | | | | [address] | | | | | | [phone].New [employer]pl[employer]. | | | | | | Jeffrey [...] B: | | | | | | THE [employer]/CS | | | | + + + + + + + + | Specimen | + + | Blood - Blood | | (substance) | + + + + + + + | Performing | Address | City/State/Zipcode | Phone Number | | Organization | | | | + + + + + | [facility] | [address] | [place], [place] | | | UNIV PTH - INTFC | | [address] | | + + + + + [...] | + + + + + | [facility] | [address] | [place] [address] | | | SERVICES, CORE | PARK [...] | + + + + + | [facility] | [address] | [place] [address] | | | SERVICES, [place] | [address] | | | [...] | | | | | determined by [facility] | | | | | | Laboratories. See | | | | | | Compliance Statement B: | | | | | | [employer].Re Pet/CSPerformed | | | | | | by Critical access hospital,[address] | | | | | | [facility] | | | | | | [address] | | | | | | [phone].[employer]. | | | | | | [facility], Jeffrey Armendariz MD, | | | | [...] [facility] | [address] | [place], [place] | | | UNIV PTH - INTFC | | [address] | | + + + + + [...] [facility] | | | | | | [employer]. See | | | | | | Compliance Statement B: | | | | | | [employer].Re Pet/CSPerformed | | | | | | by [employer],[address] | | | | | | [address], [facility] [place] | | | | | | [address] | | | | | | [phone].[employer]. | | | | | | [facility] hospitalJeffrey MD, | | | | | [...] [facility] | [address] | [place], [place] | | | UNIV PTH - INTFC | | [address] | | + + + + + [...] + + + | [facility] | [address] | [place] [address] | | | SERVICES, [facility]ENTER FOR | | | | | HEALTH [...] | | | | | determined by [employer] | | | | | | Laboratories. See | | | | | | Compliance Statement B: | | | | | | THE MELT/CSPerformed | | | | | | by [employer],[address] | | | | | | [place], [place] | | | | | | [address] | | | | | | [phone].[employer]. | | | | | | Jeffrey [...] [facility] | [address] | [place], [place] | | | UNIV PTH - INTFC | | [address] | | + + + + + [...] + + | [facility] | [address] | [place] [address] | | | SERVICES, CORE | PARK [...] [facility] | [address] | [place] [address] | | | SERVICES, CORE | ABEBA [...] | + + + + + | [facility] | [address] | [place] [address] | | | SERVICES, SPECIAL | ABEBA [...] | [facility] | | considered for monitoring extermination inspector glycemic control in patients with: | LABORATORY [...] | + + + + + | [facility] | [address] | [place] [address] | | | SERVICES, SPECIAL | PARK [...] | + + + + + | [facility] | [address] | [place] [address] | | | SERVICES, CORE | ABEBA [...] | | | | | determined by [employer] | | | | | | Laboratories. See | | | | | | Compliance Statement B: | | | | | | [employer].Re Pet/CSPerformed | | | | | | by [employer],[address] | | | | | | [address], [facility] [place] | | | | | | [address] | | | | | | [phone].Drivelab. | | | | | | Jeffrey [...] [facility] | [address] | [place], [place] | | | UNIV PTH - INTFC | | [address] | | + + + + + [...] | | | LABORATORY | | | [place] | | | SERVICES, | | | [...] MDRD equation recommended by the National | [facility] | | Kidney Disease Education Program. Estimated [...] | + + + + + | [facility] | [address] | [place] [address] | | | [facility] | | | | | HEALTH + HEALING | | | | + + + + + documented in this encounter Visit Diagnoses + + | Diagnosis | + + | Morbid obesity with BMI of 45.0-49.9, adult (HCC) - Primary | + + | Depression, unspecified depression type | + + | Hypertension, unspecified type | + + | Obstructive sleep apnea Obstructive sleep apnea (adult) (pediatric) | + + | Gastroesophageal reflux disease, esophagitis presence not specified | + + | Anemia, unspecified type | + + | Hyperlipidemia, unspecified hyperlipidemia type | + + | Bilateral chronic knee pain Pain in joint, lower leg | + + | Anxiety Anxiety state, unspecified | + + | Incisional hernia, without obstruction or gangrene | + + | Former smoker Personal history of tobacco use, presenting hazards to health | + + documented in this encounter
--- OUTSIDE RECORDS SUMMARY | ~2020-03-10 | XMS | Encounter Summary ---
Demographics + + + | Address | [address] | | | [place] [address] | + + + | Home Phone [...] Team Providers + +------+ + | Care Lead Shop Operator Name | Role | Phone | [...]
--- OUTSIDE RECORDS SUMMARY | ~2020-03-10 | XMS | Encounter Summary ---
Demographics + + + | Address | [address] | | | [place] [address] | + + + | Home Phone | | + + + | Preferred Language | Unknown | + + + | Marital Status | Single | + + + | Lutheran Affiliation | Unknown | + + + [...] Team Providers + +------+ + | Care Director Of Strategic Communications Name | Role | Phone | + +------+ + | Stephanie Washington | PCP | | + +------+ + Encounter Details +--------+ + + + + | Date | Type | Department | Care Team | Description | +--------+ + + + + | 07/11/ | Documentati | [facility] | Cindy Goyal, | | | 2019 | on | Center at [facility] [address] | POULTRY HATCHERY [employer] [address] | | | | | [address] | [place], [place] | | | | | Mailcode: Center | [address] | | | | | for Health and | | | | | | [facility], [facility] [address] | | | | | | [place], [place] | | | | | | [address] | | | | | | | [...]
--- OUTSIDE RECORDS SUMMARY | ~2020-03-10 | XMS | Encounter Summary ---
Demographics + + + | Address | [address] | | | [place] [address] | + + + | Home Phone [...] + + | Author | [facility] | | | and [place] | + + + | Organization | [facility] | | | and [place] | [...] Providers + +------+ + | Care Chief Safety Officer Name | Role | Phone | [...] | | | | | | MI CATH | | | | | | | PLACE/CORON | | | | | | | ANGIO, IMG | | | | | | | SUPER/INTERP | | | | | | | ,W LEFT | | | | | | | HEART | | | | | | | VENTRICULOGR | | | | | | | APHY MI PRQ | | | | | | | TRLUML | | | | | | | CORONARY | | | | | | | STENT | | | | | | | W/ANGIO ONE | | | | | | | ART/BRNCH | | | | | | | MI PRQ | | | | | | [...] MED CTR CV | MD Janette [address] | CORONARIES/CORONARY | | | | INTRA OP [address] | [place] | INTERVENTION | | | | [place] | [address] | | | | | | [phone] | | | | | [phone] | | | +--------+---------+ + + + [...] Physician Discharge Summary Patient ID: Tiffanie Valentin [id number] y.o. 1950 Admit date: 01/02/2015 Discharge date and time: No discharge date for patient encounter. Admitting Physician: Jozef Hoover MD Discharge Physician: Jozef Hoover MD [facility] Interventional Cardiology [place], [place] Admission Diagnoses: Nonspecific abnormal unspecified cardiovascular [...] present. Please notify your MD and/or your Aqueduct And Reservoir Keeper if any of the follo wing occur: [...] + | Jozef Hoover MD 01/02/2015 9:22 [facility] | [facility] | | [facility] CARDIAC CATHETERIZATION REPORT PATIENT | | | NAME: | | | Tiffanie Valentin DATE OF : | | | 1950 MEDICAL | | | RECORD NUMBER: [id number] | | | DATE OF PROCEDURE: | | | 01/02/2015 FACILITY: | | | [facility] | | | [place], [place] | | | | | | PRIMARY CARE PROVIDER: | | | Peng Fink PRIMARY HOME APPLIANCE TECHNICIAN: | | | Jozef Hoover MD [facility] Interventional Cardiology | | | [place], [place] BLEACHER LARD: | | | Dr. Jozef Hoover MD | | | [facility] PRE-PROCEDURE DIAGNOSIS: | | | abnormal [...] and anesthetized with 1% lidocaine. A 6 burundian sheath was | | | placed into the right radial artery A 6 burundian pigtail cathether was | | | advanced into the left ventricle, pressures were measured, and left | | | ventriculography was performed. Standard angiography was performed | | | in multiple views using 6 Portuguese tiger catheter to engage the | | [...] Jozef Siddiqui | | | MD Kiko [facility] Interventional Cardiology [facility] | | | [place], [place] 01/02/2015 9:20 | | + + [...] | | | 324 mg, Oral, POWER TRANSFORMER INSPECTOR, Starting | | 15 7:29 | | [...] mLs | | | | Intravenous, POWER TRANSFORMER INSPECTOR, Starting | | AM PDT | | [...]
--- OUTSIDE RECORDS SUMMARY | ~2020-03-10 | XMS | Encounter Summary ---
Demographics + + + | Address | [address] | | | [place] [address] | + + + | Home Phone | | + + + | Preferred Language | Unknown | + + + | Marital Status | | + + + | Faith Affiliation | 1027 | + + + | Race | Unknown | + + + | Ethnic Group | Unknown | + + + Author + + + | Author | [facility] | | | and [place] | + + + | Organization | [facility] | | | and [place]ver[place]ana | [...] Team Providers + +------+ + | Care Work Car Operator Name | Role | Phone | [...] | [facility] | [address] | | | | | [address] | [address] | | | | | [place], | [place] [address] | | | | | [place] [address] | [phone] | | | | | [phone] | | | +--------+ + + + [...]
--- OUTSIDE RECORDS SUMMARY | ~2020-03-10 | XMS | Encounter Summary ---
Demographics + + + | Address | [address] | | | [place] [address] | + + + | Home Phone | | + + + | Preferred Language | Unknown | + + + | Marital Status | Single | + + + | Cheondoism Affiliation | Unknown | + + + [...] Providers + +------+ + | Care It Architecture Analyst Name | Role | Phone | [...] | | | | | [address] [place], | | | | | | [place] [address] | | | +--------+ + + + [...]
--- OUTSIDE RECORDS SUMMARY | ~2020-03-10 | XMS | Encounter Summary ---
Demographics + + + | Address | [address] | | | [place] [address] | + + + | Home Phone | | + + + | Preferred Language | Unknown | + + + | Marital Status | Single | + + + | Taoism Affiliation | Unknown | + + + [...] Team Providers + +------+ + | Care Transit Operator Name | Role | Phone [...] | | Hernia, | Stephanie Lam, | [facility] [address] | | | | | hiatal | [place] [address] | | | | | | [place] | Mailcode: | | | | | | [place], | [facility] | | | | | | [place] [address] | [facility] and | | | | | | Phone: | Healing, | | | | | | [phone] | [address] | | | | | | Fax: | [place], [place] | | | | | | [phone] | [address] | | | | | | | Phone: | | | | | | | [phone] | | | | | | | Fax: | | | | | | | [phone] | +--------+--------+ + + + + Encounter Details +--------+---------+ + + + | Date | Type | Department | Care Team | Description | +--------+---------+ + + + | 08/19/ | Office | [facility] | Emily Joyner, | Severe obesity (HCC) | | 2019 | Visit | Therapy Services at | PT,DPT [address] | (Primary Dx) | | | | [facility] | [address] | | | | | [address] | [place], [place] | | | | | Mailcode: CH3P | [address] | | | | | [facility] | | | | | | and [place], | | | | | | [facility] | | | | | | Floor [place], [place] | | | | | | [address] | | | | | | [phone] | | | +--------+---------+ + + + [...] care for t he certification period documented. [facility] PHYSICAL THERAPY EVALUATION Past Medical History: Diagnosis Date Alcoholism (HCC) Anemia Anxiety Basal cell carcinoma Bilateral chronic knee pain Carpal tunnel syndrome Depression Fibroid GERD (gastroesophageal reflux disease) Hypertension Incisional hernia Metabolic syndrome Morbid obesity (HCC) Obstructive sleep apnea Past Surgical History Procedure Laterality Date Carpal tunnel release 2006 right wrist, 2007 left wrist Salpingo-oophorectomy Left 2004 with cauterization [...] Moderate - Moderate complexity Complexity: Moderate - 25580 The patient requires services that can be [...] change in their status. Emily Joyner, PT,DPT [facility] PHYSICAL THERAPY SERVICES AT [facility] Scheduled Appointment time: 2:30 PM The patient was seen for a total of 45 minutes of treatment time. 45 minutes was in direct contact care as described above and on completed flow sheets. Treatment Interventions duration in minutes: Procedure:Physical Therapy Evaluation and Ther apeutic Activities 15 min Authorization information for first visit and progress reports Procedure Codes: Re-evaluation 15149, Therapeutic Exercise 69355, Manual Therapy 33500, Th erapeutic Activities 62222, Neuromuscular Reeducation 08851, Gait Training 77421 and Self-ca re ADL 21521 Minutes per session: 45 Total number of visits: 1 visit only Frequency: 1 visit only Duration: n/a (must exceed or match Medicare service period reques t) Service period from: 08/19/2019 to: 08/19/2019 (Medicare must match duration or be no gre ater than 90 days if proposed duration is greater than 3 months) Start of care: 08/19/2019 Referral information Authorizing Provider: ANGELI BARRERA [[id number]] Onset/Referral Date: 07/08/19 Primary/Referral Diagnosis: E66.01 Severe [...] | + +--------+ + + + | [place] THERAPEUTIC | Routin | 08/19/2019 | Severe obesity | | | ACTIVITIES | e | 3:39 PM | ([facility]) | | | | | PDT | | | + +--------+ + + + documented in this encounter Visit Diagnoses + + | Diagnosis | + + | Severe obesity (HCC) - Primary Morbid obesity | + + documented in this encounter
--- OUTSIDE RECORDS SUMMARY | ~2020-03-10 | XMS | Clinical Summary ---
Demographics + + + | Address | [address] | | | [place] [address] | + + + | Home Phone | | + + + | Preferred Language | Unknown | + + + | Marital Status | Single | + + + | Druze Affiliation | Unknown | + + + | Race | White | + + + | Ethnic Group | Not or | + + + Author + + + | Author | [facility] | + + + | Organization | [facility] | + + + | Address | Unknown | + + + | Phone | Unavailable | + + + Support + + +---------+ + | Name | Relationship | Address | Phone | + + +---------+ + | Marifer Valentin | ECON | Unknown | | + + +---------+ + Care Team Providers + +------+ + | Care Footwear Factory Worker Name | Role | Phone | + +------+ + | Stephanie Washington | PCP | | + +------+ + Source Comments NICOLE is fully live on both [facility] Ambulatory and [facility] InPatient.[facility] Allergies No Known Allergies Medications + + + +---------+------+------+-------+ | Medication | Sig | Dispensed | Refills | Star | End | Statu | | | | | | t | Date | s | | | | | | Date | | | + + + +---------+------+------+-------+ | enalapril 20 mg | Take 20 mg by mouth | | 0 | | | Activ | | oral tablet | two times daily. | | | | | e | + + + +---------+------+------+-------+ | simvastatin 20 mg | Take 20 mg by mouth | | 0 | | | Activ | | oral tablet | once daily in the | | | | | e | | | evening. | | | | | | + + + +---------+------+------+-------+ | omeprazole 20 mg | Take 40 mg by mouth | | 0 | | | Activ | | oral capsule,delayed | once daily in the | | | | | e | | release(DR/EC) | morning. Administer | | | | | | | | 30 to 60 minutes | | | | | | | | before meals | | | | | | + + + +---------+------+------+-------+ | venlafaxine 75 mg | Take 75 mg by mouth | | 0 | | | Activ | | oral tablet | once daily. | | | | | e | + + + +---------+------+------+-------+ | cholecalciferol | Take by mouth. | | 0 | | | Activ | | (vitamin D3) | | | | | | e | | (VITAMIN D3 ORAL) | | | | | | | + + + +---------+------+------+-------+ | aspirin chewable | Chew and swallow 81 | | 0 | | | Activ | | 81 mg oral | mg once daily at | | | | | e | | tablet,chewable | bedtime. | | | | | | + + + +---------+------+------+-------+ Active Problems + + + | Problem | Noted Date | + + + | HTN (hypertension) | 08/19/2019 | + + + | HLD (hyperlipidemia) | 08/19/2019 | + + + | Alcoholism in remission | 08/19/2019 | + + + | Former smoker | 08/19/2019 | + + + | Anemia | | + + + | Anxiety | | + + + | Bilateral chronic knee pain | | + + + | Depression | | + + + | GERD (gastroesophageal reflux disease) | | + + + | Incisional hernia | | + + + + + | Overview: 6cm, incarcerated | + + + +---+ | Morbid obesity with BMI of 45.0-49.9, adult | | + +---+ | Obstructive sleep apnea | | + +---+ Resolved Problems + + + + | Problem | Noted | Resolved | | | Date | Date | + + + + | Severe obesity (BMI >= 40) | 07/18/20 | | | | 19 | 9 | + + + + | Hypertension | | | | | | 9 | + + + + Encounters +--------+---------+ + + + | Date | Type | Specialty | Care Team | Description | +--------+---------+ + + + | 12/20/ | Office | Surgery | Marita Hadley, | Gastroesophageal | | 2019 | Visit | | MD | reflux disease, | | | | | | esophagitis presence | | | | | | not specified | | | | | | (Primary Dx); Morbid | | | | | | obesity with BMI of | | | | | | 45.0-49.9, adult | | | | | | (HCC) | +--------+---------+ + + + | 12/20/ | Travel | | | | | 2019 | | | | | +--------+---------+ + + + from Last 3 Months Family History + + +------+ + | Medical History | Relation | Name | Comments | + + +------+ + | Heart Attack | Father | | | + + +------+ + | Thyroid disease | Mother | | | + + +------+ + + +------+ + + | Relation | Name | Status | Comments | + +------+ + + | Father | | | | + +------+ + + | Mother | | | | + +------+ + + Social History + + + [...] | + + + + + | Pneumococcal | Completed | 06/27/2019, 11/28/2017 | | | vaccination | | | | + + + + + | Influenza (Flu) | Completed | 07/10/2019, 08/01/2018, | | | vaccination | | 07/28/2017, Additional history | | | | | exists | | + + + + + Results Not on filefrom Last 3 Months Insurance + +--------+ +--------+ + +------+ | Payer | Benefi | Subscriber | Effect | Phone | Address | Type | | | t Plan | ID | yeison | | | | | | / | | Dates | | | | | | Group | | | | | | + +--------+ +--------+ + +------+ | [employer] | MODA | xxxxxxxxx | 10/23/19 | [phone] | [address] | PPO | | | MEDICA | | 20-Pre | 4 | [address] | | | | RE PPO | | sent | | [place], | | | | | | | | [place] [address] | | + +--------+ +--------+ + +------+ + +--------+ +--------+ + + | Guarantor Name | Accoun | Relation to | Date | Phone | Billing Address | | | t Type | Patient | of | | | | | | | | | | + +--------+ +--------+ + + | Tiffanie Valentin | Person | Self [birth year] | [address] | | | al/Fam | | 1949 | [phone] | [place] | | | fabian | | | [address] (Home) | [address] | + +--------+ +--------+ + +
--- OUTSIDE RECORDS SUMMARY | ~2020-03-10 | XMS | Encounter Summary ---
Demographics + + + | Address | [address] | | | [place] [address] | + + + | Home Phone | | + + + | Preferred Language | Unknown | + + + | Marital Status | Single | + + + | Mandaeism Affiliation | Unknown | + + + | Race | White | + + + | Ethnic Group | Not or | + + + Author + + + | Author | [facility] | + + + | Organization | [facility] | + + + | Address | Unknown | + + + | Phone | Unavailable | + + + Support + + +---------+ + | Name | Relationship | Address | Phone | + + +---------+ + | Marifer Valentin | ECON | Unknown | | + + +---------+ + Care Team Providers + +------+ + | Care Engineer System Administrator Name | Role | Phone | [...] Pain | Diagnoses | Jay Jay, | Correctional Treatment Specialist Psych | | Review | | Management | Morbid | ROSIO [place] | [address] | | | | | obesity with | [address] | | | | | BMI of | [address] | Mailcode: | | | | | 45.0-49.9, | [place], [place] | [facility] | | | | | adult ([facility]) | [address] | for Health | | | | | Depression, | Phone: | and Healing, | | | | | unspecified | [phone] | Building 1, | | | | | depression | Fax: | 15th Floor | | | | | type | [phone] | [place], [place] | | | | | Hypertension | | [address] | | | | | , | | Phone: | | | | | unspecified | | [phone] | | | | | type | | Fax: | | | | | Obstructive | | [phone] | | | | | sleep apnea [...] | [facility] | | | with DIRECTOR AUDIENCE MARKETING | | obesity (BMI | [address] | [address] | | | | | >= 40) | Angel Thompson | [address] | | | | | ([facility]) | Rd | Mailcode: | | | | | Procedures | [place], [place] | [facility] for | | | | | CONSULT TO | [address] | Health and | | | | | BARIATRIC | Phone: | Healing, | | | | | SURGERY | [phone] | [facility] 2 | | | | | | Fax: | [place], [place] | | | | | | [phone] | [address] | | | | | | | Phone: | | | | | | | [phone] | | | | | | | Fax: | | | | | | | [phone] | + + + + + + + Encounter Details +--------+---------+ + + + | Date | Type | Department | Care Team | Description | +--------+---------+ + + + | 08/19/ | Office | Digestive Health | Cindy Goyal, | Morbid obesity with | | 2019 | Visit | [facility] at [facility] | GAUGE MAKER [address] | BMI of 45.0-49.9, | | | | [address] | [place], [place] | adult ([facility]) (Primary | | | | Mailcode: Center | [address] | Dx); Depression, | | | | for Health and | | unspecified | | | | Healing, Building 2 | | depression type; | | | | [place], [place] | | Hypertension, | | | | [address] | | unspecified type; | | | [...] go to the 1st floor of the [facility] 2 building and have these labs done. [...] Pre-op Psychological Evaluation: Your referral is at [facility], the Pain Management Office mikayla l [...] request from your PCP to a local pearl hand and have copies of the office visit no nitesh and any test results faxed to us. If you have an established pearl hand, we will need official documentation from them iden tifying your cardiac risk stratification prior to surgery. + Weight Management classes: 2 classes are required in addition to your private appointment with the phototypesetter operator. These classes will be scheduled apporoximately [...] weight. 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 Lives at home with daughter an [...] medicated, last lipid panel 06/28/19. Denies CHF, [place], ischemic heart disea se, DVT/PE, or pulmonary hypertension. States unable to climb two flights of stairs due to her knees. 12/05/14 NM Myocardial Perfusion Scan Pharmacologic at the [facility]: FINAL IMPRESSION: 1. Abnormal study. 2. There is a moderate-sized area of mild to moderate ischemia in the distal half of the anterior wall and the anterior and lateral apex. No prior infarction. 3. Overall left ventricular systolic function is moderately dilated with normal systolic function, EF 53%. 4. Stress testing results are consistent with normal response to Lexiscan. 01/02/15 Interventional Cardiology at [facility]: PROCEDURES PERFORMED: 1. Left Heart Catheterization for [...] and anesthetized with 1% lidocaine. A 6 namibian sheath was placed into the right radial artery A 6 namibian pigtail cathether was advanced into the left ventricle, pressures were measured, and left ventriculography was performed. Standard angiography was performed in multiple views using 6 Azerbaijani tiger catheterto engage the left and right [...] our Foregut team. 06/14/19 Xray Esophagram at [facility]: IMPRESSION: Stomach containing sliding-type large hiatal hernia. 07/16/18 EGD at [facility] ([place], [place]): 07/16/18 Pathology: Abd surgeries: lap oophorectomy [...] bariatric surgery. Records have been reviewed from [facility] and several attempts have been made to [...] date here on 07/18/19 wit h our phototypesetter operator, for a preop weight loss goal of 15 pounds -pt counseled on the possible risk of GERD symptoms after sleeve gastrectomy -pt counseled on the risk of marginal ulcers with RYGB and the need to abstain from NSAIDs post surgery as these increase risk of ulcers #Incisional hernia -reviewed red flags and when to seek care [facility]D/Hiatal hernia -subjective improvement of the [...] go to the 1st floor of the [facility] 2 building and have these labs done. [...] Pre-op Psychological Evaluation: Your referral is at [facility], the Pain Management Office mikayla l [...] request from your PCP to a local pearl hand and have copies of the office visit no nitesh and any test results faxed to us. If you have an established pearl hand, we will need official documentation from them iden tifying your cardiac risk stratification prior to surgery. + Weight Management classes: 2 classes are required in addition to your private appointment with the phototypesetter operator. These classes will be scheduled apporoximately [...] weight. + My Chart Sign up for [employer] so that we can communicate easily back [...] other providers does not guarantee that the [facility] Bariatric Surger y program will deem [...] GWEN Robb, MPH Bariatric Surgery Nurse Practitioner [facility] | [address] | [place], [place] | [address] | documented in this encounter Plan of [...] | | | | s | | ([facility]) Depression, | | | [...] results section. | | | | | ([facility]) Depression, | | | [...] results section. | | | | | ([facility]) Depression, | | | [...] | + + + + + | [facility] | [address] | [place] [address] | | | SERVICES, [place] [facility] | | | | | HEALTH [...] | | | | | determined by [facility] | | | | | | Laboratories. See | | | | | | Compliance Statement B: | | | | | | Gamgeel[employer].com/CSPerformed | | | | | | by [employer],[address] | | | | | | [address], [facility] | | | | | | [address] | | | | | | [phone].[employer]. | | | | | | com, [...] + + | [facility] | [address] | [place], [place] | | | UNIV PTH - INTFC | | [address] | | + + + + + [...] [facility] | | | (ROC ALEXIS) | [facility],[address] | | REG UNIV | | | SERUM | [facility] [place], [place] | | PTH - INTFC | | | | [address] | | | | | | [phone].[employer]erred [employer] Investmentsuplab. | | | | | | Jeffrey [...] B: | | | | | | [employer]/CS | | | | + + + + + + + + | Specimen | + + | Blood - Blood | | (substance) | + + + + + + + | Performing | Address | City/State/Zipcode | Phone Number | | Organization | | | | + + + + + | [facility] | [address] | [place], [place] | | | UNIV PTH - INTFC | | [address] | | + + + + + [...] | + + + + + | [facility] | [address] | [place] [address] | | | SERVICES, CORE | PARK [...] | + + + + + | [facility] | [address] | [place] [address] | | | SERVICES, [place] | ABEBA [...] | | | | | determined by [facility] | | | | | | Laboratories. See | | | | | | Compliance Statement B: | | | | | | [employer]/CSPerformed | | | | | | by [facility],[address] | | | | | | [facility] | | | | | | [address] | | | | | | [phone].[employer]. | | | | | | [facility], Jeffrey Armendariz MD, | | | [...] [facility] | [address] | [place], [place] | | | UNIV PTH - INTFC | | [address] | | + + + + + [...] [facility] | | | | | | [employer]. See | | | | | | Compliance Statement B: | | | | | | [place].[employer]/CSPerformed | | | | | | by [employer],[address] | | | | | | [address], [facility] [place] | | | | | | [address] | | | | | | [phone].[employer]. | | | | | | [facility] hospitalJeffrey MD, | | | | | [...] [facility] | [address] | [place], [place] | | | UNIV PTH - INTFC | | [address] | | + + + + + [...] + | [facility] | [address] | [place] [address] | | | SERVICES, CENTER FOR | [...] | | | | | determined by [facility] | | | | | | Laboratories. See | | | | | | Compliance Statement B: | | | | | | [employer]/CSPerformed | | | | | | by [employer],[address] | | | | | | [place], [place] | | | | | | [address] | | | | | | [phone].Savaree. | | | | | | Jeffrey [...] [facility] | [address] | [place], [place] | | | UNIV PTH - INTFC | | [address] | | + + + + + [...] + + | [facility] | [address] | [place] [address] | | | SERVICES, CORE | PARK [...] [facility] | [address] | [place] [address] | | | SERVICES, CORE | ABEBA [...] | + + + + + | [facility] [employer] | [address] | [place] [address] | | | SERVICES, SPECIAL | ABEBA [...] | [facility] | | considered for monitoring terminologist glycemic control in patients with: | LABORATORY [...] | + + + + + | [facility] | [address] | [place] [address] | | | SERVICES, SPECIAL | PARK [...] | + + + + + | [facility] | [address] | [place] [address] | | | SERVICES, CORE | ABEBA [...] | | | | | determined by [employer] | | | | | | Laboratories. See | | | | | | Compliance Statement B: | | | | | | [place].SkySQL/CSPerformed | | | | | | by [employer],[address] | | | | | | [address], [facility] [place] | | | | | | [address] | | | | | | [phone].Gamgeelab. | | | | | | Jeffrey [...] [facility] | [address] | [place], [place] | | | UNIV PTH - INTFC | | [address] | | + + + + + [...] | | | LABORATORY | | | SAMMARINESE | | | SERVICES, | | | [...] NICOLE VALDOVINOS | [address] | [place] [address] | | | [facility] | | | | | HEALTH + [...]
--- OUTSIDE RECORDS SUMMARY | ~2020-03-10 | XMS | Encounter Summary ---
Demographics + + + | Address | [address] | | | [place] [address] | + + + | Home Phone | | + + + | Preferred Language | Unknown | + + + | Marital Status | | + + + | Sikhism Affiliation | 1027 | + + + | Race | Unknown | + + + | Ethnic Group | Unknown | + + + Author + + + | Author | [facility] | | | and [place] | + + + | Organization | [facility] | | | and [place] | [...] Team Providers + +------+ + | Care Processing Spec Name | Role | Phone | + [...] [facility] [place] | [address] | | | | | [address] | [address] | | | | | [address] | [place] | | | | | [place] | [phone] | | | | | [phone] | | | +--------+ + + + [...]
--- OUTSIDE RECORDS SUMMARY | ~2020-03-10 | XMS | Encounter Summary ---
Demographics + + + | Address | [address] | | | [place] [address] | + + + | Home Phone | | + + + | Preferred Language | Unknown | + + + | Marital Status | Single | + + + | Sikh Affiliation | Unknown | + + + | Race | White | + + + | Ethnic Group | Not or | + + + Author + + + | Author | [facility] | + + + | Organization | [facility] | + + + | Address | Unknown | + + + | Phone | Unavailable | + + + Support + + +---------+ + | Name | Relationship | Address | Phone | + + +---------+ + | Marifer Valentin | ECON | Unknown | | + + +---------+ + Care Team Providers + +------+ + | Care Merchandise Presentation Associate Name | Role | Phone | [...] 2019 | on | Center at [facility] [address] | UTILITIES AND MAINTENANCE SUPERVISOR [address] | | | | | [address] | [place], [place] | | | | | Mailcode: Center | [address] | | | | | for Health and | | | | | | [facility], [facility] 2 | | | | | | [place], [place] | | | | | | [address] | | | | | | | [...]
--- OUTSIDE RECORDS SUMMARY | ~2020-03-10 | XMS | Encounter Summary ---
Demographics + + + | Address | [address] | | | [place] [address] | + + + | Home Phone [...] Team Providers + +------+ + | Care Policy Change Clerks Supervisor Name | Role | Phone | [...]
--- OUTSIDE RECORDS SUMMARY | ~2020-03-10 | XMS | Encounter Summary ---
Demographics + + + | Address | [address] | | | [place] [address] | + + + | Home Phone | | + + + | Preferred Language | Unknown | + + + | Marital Status | Single | + + + | Yarsanism Affiliation | Unknown | + + + | Race | White | + + + | Ethnic Group | Not or | + + + Author + + + | Author | [facility] | + + + | Organization | [facility] | + + + | Address | Unknown | + + + | Phone | Unavailable | + + + Support + + +---------+ + | Name | Relationship | Address | Phone | + + +---------+ + | Marifer Valentin | ECON | Unknown | | + + +---------+ + Care Team Providers + +------+ + | Care Hose Tester Name | Role | Phone | [...] 2019 | Visit | Center at [facility] | | BMI of 45.0-49.9, | | | [address] | | adult (HCC) (Primary | | | | Mailcode: Center | | Dx) | | | | for Health and | | | | | | [facility] 2 | | | | | | [place], [place] | | | | | | [address] | | | | | | [phone] | | | +--------+---------+ + + + [...] Gastrectomy. Documented Time of Class: 60 minutes [id number] with patient OBJECTIVE: Ht Readings from Last [...] Shoshana Paniagua, MS, RDN, CSOWM, LD, CDE [facility] Bariatrics [phone] documented in this e ncounter Plan of Treatment Not on filedocumented as of this encounter Visit Diagnoses + + | Diagnosis | + + | Morbid obesity with BMI of 45.0-49.9, adult (HCC) - Primary | + + documented in this encounter
--- OUTSIDE RECORDS SUMMARY | ~2020-03-10 | XMS | Encounter Summary ---
Demographics + + + | Address | [address] | | | [place] [address] | + + + | Home Phone [...] Team Providers + +------+ + | Care Prison Officer Name | Role | Phone | + +------+ + PCP | Unavailable | + +------+ + Encounter Details +--------+ + + + + | Date | Type | Department | Care Team | Description | +--------+ + + + + | 12/12/ | Attendant Child Activity | Digestive Health | Marita Hadley, | Hiatal hernia with | | 2019 | | Center at [facility] [address] | MD [address] | GERD and esophagitis | | | | [address] | [place], [place] | (Primary Dx) | | | | Mailcode: [place] | [address] | | | | | for Health and | [phone] | | | | | [facility], [facility] 2 | | | | | | [place], [place] | | | | | | [address] | | | | | | [phone] | | | +--------+ + + + [...] + + + | EXAM: Esophagram with aircraft engine cylinder mechanic radiograph HISTORY: Hiatal hernia | [facility] | [...] Note | + + | Service Account, [employer] Res In Interface - 06/14/2019 2:39 PM PDT EXAM: Esophagram | | with aircraft engine cylinder mechanic radiograph HISTORY: Hiatal hernia with GERD COMPARISON: [...]
--- OUTSIDE RECORDS SUMMARY | ~2020-03-10 | XMS | Encounter Summary ---
Demographics + + + | Address | [address] | | | [place] [address] | + + + | Home Phone | | + + + | Preferred Language | Unknown | + + + | Marital Status | | + + + | Islam Affiliation | 1027 | + + + | Race | Unknown | + + + | Ethnic Group | Unknown | + + + Author + + + | Author | [facility] | | | and [place] | + + + | Organization | [facility] | | | and [...] Team Providers + +------+ + | Care Quilt Maker Name | Role | Phone | + +------+ + | Peng Fink MD | PCP | | + +------+ + Encounter Details +--------+ + + + + | Date | Type | Department | Care Team | Description | +--------+ + + + + | 07/16/ | [facility] | [facility] | Ezra Green MD | | | 2018 | Encounter | MED CTR MP INTRA OP | [address] | | | | | [address] | [place], [place] | | | | | [place], [place] | [address] | | | | | [address] | [phone] | | | | | [phone] | | | +--------+ + + + [...] You can't be awakened Date Last Reviewed: 08/09/201619995315-8002 [employer]. [address] [place] [address], [place] [address]. All righ ts reserved. This information is [...] | | | cell metaplasia or dysplasia. [facility]:smn:[id number] GROSS DESCRIPTION: | | | A. [...] | | | interpretation were performed by [facility], [address] | | | [place] [address] (Supervisor Transcribing Operators: Jonatan Johns | | | Jareth Hamilton; IA#: [id number]). Diagnostician: Rene Rothman | | | Glenis IRVIN Pathologist Electronically Signed 07/18/2018 | | + + + + +---------+ + + | Performing | Address | City/State/Zipcode | Phone Number | | Organization | | | | + +---------+ + + | [facility] | | | | | [facility] [...]
--- OUTSIDE RECORDS SUMMARY | ~2020-03-10 | XMS | Encounter Summary ---
Demographics + + + | Address | [address] | | | [place] [address] | + + + | Home Phone [...] Team Providers + +------+ + | Care Regional Retail Sales Manager Name | Role | Phone | [...] | | | [place] Mailcode: | [facility] [place] | | | | | [address] | [address] | | | | | Health and Healing, | [phone] | | | | | [facility] | | | | | | Floor [place], [place] | | | | | | [address] | | | | | | [phone] | | | +--------+ + + + [...] + + + | EXAM: Esophagram with seed cleaner radiograph HISTORY: Hiatal hernia | [facility] | | with GERD COMPARISON: None TECHNIQUE: Radiation dose reduction | RADIOLOGY VOICE | | technique was maximized where appropriate using pulsed fluoroscopy | RECOGNITION 2 | | and fluoro-store images. Fluoro Time: 81 sec FINDINGS: | | | Double contrast images were obtained with the patient upright in SLOVAK | | | position. Single contrast images [...] PM PDT EXAM: Esophagram | | with seed cleaner radiograph HISTORY: Hiatal hernia with GERD COMPARISON: None TECHNIQUE: | | Radiation dose reduction technique was maximized where appropriate using pulsed | | fluoroscopy and fluoro-store images. Fluoro Time: 81 sec FINDINGS: Double contrast | | images were obtained with the patient upright in SLOVAK position. Single contrast images | | were [...]
--- OUTSIDE RECORDS SUMMARY | ~2020-03-10 | XMS | Encounter Summary ---
Demographics + + + | Address | [address] | | | [place] [address] | + + + | Home Phone [...] Author + + + | Author | [facility] | + + + | Organization | [facility] | + + + | Address | Unknown | + + + | Phone | Unavailable | + + + Support + + +---------+ + | Name | Relationship | Address | Phone | + + +---------+ + | Marifer Valentin | ECON | Unknown | | + + +---------+ + Care Team Providers + +------+ + | Care Station Jailer Name | Role | Phone | + +------+ + | Stephanie Washington | PCP | | + +------+ + Encounter Details +--------+ + + + + | Date | Type | Department | Care Team | Description | +--------+ + + + + | 07/10/ | Abstract | Digestive Health | Clinic, Surgery | | | 2019 | | [facility] [address] | | | | | | [address] | | | | | | Mailcode: [facility] | | | | | | for Health and | | | | | | Healing, Building [address] | | | | | | [place], [place] | | | | | | [address] | | | | | | [phone] | | | +--------+ + + + [...]
--- OUTSIDE RECORDS SUMMARY | ~2020-03-10 | XMS | Encounter Summary ---
Demographics + + + | Address | [address] [facility] | | | [place] [address] | + + + | Home Phone | | + + + | Preferred Language | Unknown | + + + | Marital Status | | + + + | Confucianism Affiliation | 1027 | + + + | Race | Unknown | + + + | Ethnic Group | Unknown | + + + Author + + + | Author | [facility] | | | and [place] | + + + | Organization | [facility] | [...] Team Providers + +------+ + | Care Electronics Technician Apprentice Name | Role | Phone | [...] | [facility] | [address] [facility] | | | | | [address] | [address] | | | | | [place], | [place] [address] | | | | | [place] [address] | [phone] | | | | | [phone] | | | +--------+ + + + [...]
--- OUTSIDE RECORDS SUMMARY | ~2020-03-10 | XMS | Encounter Summary ---
Demographics + + + | Address | [address] [facility] | | | [place] [address] | + + + | Home Phone | | + + + | Preferred Language | Unknown | + + + | Marital Status | | + + + | Presybeterian Affiliation | 1027 | + + + | Race | Unknown | + + + | Ethnic Group | Unknown | + + + Author + + + | Author | [facility] | | | and [place] | + + + | Organization | [facility] [...] Team Providers + +------+ + | Care Corrosion Control Engineer Name | Role | Phone | [...] | [facility] | [address] [facility] | | | | | [address] | [address] | | | | | [place], | [place] [address] | | | | | [place] [address] | [phone] | | | | | [phone] | | | +--------+ + + + [...]
--- OUTSIDE RECORDS SUMMARY | ~2020-03-10 | XMS | Encounter Summary ---
Demographics + + + | Address | [address] | | | [place] [address] | + + + | Home Phone [...] Team Providers + +------+ + | Care Exercise Instructor Name | Role | Phone | + +------+ + | Stephanie Washington | PCP | | + +------+ + Encounter Details +--------+--------+ + + + | Date | Type | Department | Care Team | Description | +--------+--------+ + + + | 08/19/ | Travel | | | | | [...]
--- OUTSIDE RECORDS SUMMARY | ~2020-03-10 | XMS | Encounter Summary ---
Demographics + + + | Address | [address] [facility] | | | [place] [address] | + + + | Home Phone [...] | Organization | [facility] | | | and [place] [...] Providers + +------+ + | Care Supervisor Shaving And Splitting Name | Role | Phone | + [...] [place] | | | | | [address] | [phone] | | | | | [phone] | | | +--------+ + + + [...] Care Everywhere.FINGER TIP ZANDER BEARDEN, OPEN TREATMENT (KINYARWANDA)documented in this encounter Medications at Time of [...] | | + +--------+ +---------+------+ + | ksjptkt-uwoojzykfo-dgkgokbki | Given | 12/25/20 | 0.5 mLs [...]
--- OUTSIDE RECORDS SUMMARY | ~2020-03-10 | XMS | Encounter Summary ---
Demographics + + + | Address | [address] [facility] [facility] | | | [place] [address] | + + + | Home Phone [...] | Organization | [facility] | [...] Team Providers + +------+ + | Care Drywall Stripper Helper Name | Role | Phone | [...] | | | left upper | | [address] | | | | | extremity, | | Phone: | | | | | including | | [phone] | | | | | shoulder | | Fax: | | | | | Procedures | | [phone] | | | | | MN EXC TUMOR | | | | | | | SOFT TISSUE | | | | | | | UPPER | | | | | | | ARM/ELBOW | | | | | | | SUBQ 3+CM | | | | | | | MN EXC SKIN | | | | | [...] Event | [facility] [place] | EGG SEPARATOR [address] | | | | | INTRA [address] | [address] [place], | | | | | [address] | [place] [address] | | | | | [place] [address] | [phone] | | | | | [phone] | | | | | | | Hardeep Johnson, | | | | | | EGG SEPARATOR [address] | | | | | | [place] | | | | | | [address] | | | | | | | [...] +----+---+ + + | | 1 | [place] | | | | 0 | 43-degrees [...] +----+---+ + + | | 1 | [place] off | | | | 2 | [...] + + | Periph | 10/07/15; 0821; imcu-hfy-vjshfz | 10/07/15 0821 by | 07/16/18 1411 [...] + + | Periph | 11/17/15; 1000; kbly-xtb-qvlqfb | 11/17/15 1000 by | 11/17/15 1416 by | | eral | catheter system; 20 gauge, 1 in | Latasha Abbott | Dilcia Sewell, | | IV | length; distraction, intradermal | | RESEARCH TECHNOLOGIST | | | injection, tolerated well; | [...] | healing within expectations; | RN | RESEARCH TECHNOLOGIST | | | 11/17/15; 1416 | | | +--------+ + + + | Read | 11/17/15; 1144; Left; arm; | 11/17/15 1144 by | 11/17/15 1416 by | | only - | healing within expectations; | Collette Edmonds, | Dilcia Sewell, | | | 11/17/15; 1416 | RN | RESEARCH TECHNOLOGIST | | [facility] | | | | [...]
--- OUTSIDE RECORDS SUMMARY | ~2020-03-10 | XMS | Encounter Summary ---
Demographics + + + | Address | [address] | | | [place] [address] | + + + | Home Phone | | + + + | Preferred Language | Unknown | + + + | Marital Status | Single | + + + | Bahai Affiliation | Unknown | + + + [...] Team Providers + +------+ + | Care Television Parts Tester Name | Role | Phone | [...] | Pain | Diagnoses | Goyal, | Study Assistant Psych | | Review | | Management | Morbid | Cindy, TEMPORARY ADMINISTRATIVE ASSISTANT | [facility] [address] | | | | | obesity with | [address] | | | | | BMI of | [address] | Mailcode: | | | | | 45.0-49.9, | [place], [place] | [facility] | | | | | adult (HCC) | [address] | for Health | | | | | Depression, | Phone: | and Healing, | | | | | unspecified | [phone] | Building 1, | | | | | depression | Fax: | 15th Floor | | | | | type | [phone] | [place], [place] | | | | | Hypertension | | [address] | | | | | , | | Phone: | | | | | unspecified | | [phone] | | | | | type | | Fax: | | | | | Obstructive | | [phone] | | | | | sleep apnea [...] 10/25/ | Office | [facility] at [facility] | Beatriz Sanches | Morbid obesity with | | 2020 | Visit | [address] | Alicia, PhD [address] | BMI of 45.0-49.9, | | | | Mailcode: [facility]15[facility] | [place], [place] | adult ([facility]) (Primary | | | | Center for Health | [address] | Dx); Depression, | | | | and Healing, | [phone] | unspecified | | | | | | depression type | | | | Floor [facility] [place] | | | | | | [address] | | | | | | [phone] | | | +--------+---------+ + + + [...] a 69 y.o. female who lives in [facility]. wi th her daughter and granddaughter. She was referred for psychological evaluation prior to [facility] surgery. Informed consent and limits of confidentiality were discussed prior to the interview. Please see medical records for previous attempts at weight management. Eating and Dietary Styles: Tiffanie reported she is eating within first hour of waking; eatin g regularly, about 4 times daily, and small portions. She is going to a Group 47 support group f or weight management and [...] per week. She reported she does the end frazer, such as cooking and cleaning. The p [...] She reports her father was an alcoholic. Yarsanism was a jeancarlos ce of support and [...] 3. She should continue with following the vp corporate partnerships's recommendations, and is encourged to improve her [...] with the patient was approximately 55 minutes iiey-so-xuxv with the maciel ent, and approximately 15 minutes of administering testing and 1 hour and 20 minutes of non- ajzf-xs-qpdq interpreting and synthesizing results. Beatriz Sanches, PhD [facility] AT [facility] 15TH FLOOR [address] Mailcode: [place] [address] documented in thi s encounter Plan of Treatment Not on filedocumented as of this encounter Procedures + +--------+ + + + | Procedure Name | Priori | Date/Time | Associated Diagnosis | Comments | | | ty | | | | + +--------+ + + + | NV | Routin | 10/26/2019 | Morbid obesity | | | PSYCHOLOGICAL/NEUROP | e | 1:03 PM | with BMI of | | | SYCHOLOGICAL TEST | | PST | 45.0-49.9, adult | | | QHP; FIRST 30 MIN | | | ([facility]) Depression, | | | | | | unspecified | | | | | | depression type | | + +--------+ + + + | NV PSYCHOLOGICAL | Routin | 10/26/2019 | Morbid obesity | | | TESTING EVAL QHP; EA | e | 1:03 PM | with BMI of | | | ADDL HOUR | | PST | 45.0-49.9, adult | | | | | | ([facility]) Depression, | | | | | | unspecified | | | | | | depression type | | + +--------+ + + + | NV PSYCHOLOGICAL | Routin | 10/26/2019 | Morbid obesity | | | TESTING EVAL QHP; | e | 1:03 PM | with BMI of | | | FIRST HOUR | | PST | 45.0-49.9, adult | | | | | | ([facility]) Depression, | | | | | | unspecified | | | | | | depression type | | + +--------+ + + + documented in this encounter Visit Diagnoses + + | Diagnosis | + + | Morbid obesity with BMI of 45.0-49.9, adult ([facility]) - Primary | + + | Depression, unspecified depression type | + + documented in this encounter"
--- OUTSIDE RECORDS SUMMARY | ~2020-03-10 | XMS | Encounter Summary ---
Demographics + + + | Address | [address] | | | [place] [address] | + + + | Home Phone [...] + + + | Author | [facility] | + + + | Organization | [facility] | + + + | Address | Unknown | + + + | Phone | Unavailable | + + + Support + + +---------+ + | Name | Relationship | Address | Phone | + + +---------+ + | Marifer Valentin | ECON | Unknown | | + + +---------+ + Care Team Providers + +------+ + | Care Lime Kiln Tender Name | Role | Phone | [...] Medical Records | | 2019 | | [place] [facility] [address] | | Review | | | | [address] | | | | | | Mailcode: [place] | | | | | | [facility] and | | | | | | [facility] [address] | | | | | | [place], [place] | | | | | | [address] | | | | | | [phone] | | | +--------+ + + + [...]
--- OUTSIDE RECORDS SUMMARY | ~2020-03-10 | XMS | Clinical Summary ---
Demographics + + + | Address | [address] [facility] [address] | | | [place] [address] | + + + | Home Phone | | + + + | Preferred Language | Unknown | + + + | Marital Status | | + + + | Episcopalian Affiliation | 1027 | + + + | Race | Unknown | + + + | Ethnic Group | Unknown | + + + Author + + + | Author | [facility] | | | and [place] | + + + | Organization | [facility] | | | and [place] | [...] Team Providers + +------+ + | Care Farm Management Supervisor Name | Role | Phone | [...] | | t Plan | ID | eyison | | | | | | / | | Dates | | | | | | Group | | | | | | + +--------+ +--------+ +---------+--------+ | LIFE | | [id number] | | [phone] | | Indemn | | | MDCR | | 016-Pr | 0 | | ity | | | SUPPL | | esent | | | | + +--------+ +--------+ +---------+--------+ | MEDICARE | MEDICA | [id number] | 06/23/20 | [phone] | | Medica [...] | 1950 | [phone] | [place] [address] | | | fabian | | | 7 (Home) | | | | | | | [phone] | | | | | | | 2 (Work) | | + +--------+ +--------+ + + Advance Directives + + + + + | Type | Date Recorded | Patient | Explanation | | | | Central Office Maintainer | | + + + + + | Power of | | | | | Tag Stringer | | | | + + + [...]
--- OUTSIDE RECORDS SUMMARY | ~2020-03-10 | XMS | Encounter Summary ---
Demographics + + + | Address | [address] [facility] | | | [place] [address] | + + + | Home Phone [...] | Organization | [facility] [...] Team Providers + +------+ + | Care Client Resolution Specialist Name | Role | Phone | [...] | | CA EXC SKIN | | [address] | | | | | [place] | | Phone: | | | | | 2.1-3CM | | [phone] | | | | | TRUNK,ARM,LE | | Fax: | | | | | G CA SPLIT | | [phone] | | | | | GRFT | [...] | CELL [place]CINOMA | | | | [address] | [place] [address] | | | | | [place] | [phone] | | | | | | | [...] CELL CARCINOMA; Surgeon: Sundeep Lee MD; [facility]: [facility] [place] ALLERGIES: Review of patient's allergies indicates no [...] appointment: Appointment with Dr. Lee at the [facility] in the [facility] in 1 week as scheduled. Activity: No [...] up: Follow-up with Dr. Lee at the [facility], 2nd Floor on 10/13 at 8:00am. Please [...] dependent perso n for the next 24 hours.:[id number]} documented in this encounter Medications at Time [...] | | 65Date of : 1950 CASE: [id number]: Tiffanie | CELLNETI X | | [facility] [id number]: Tiffanie Valentin | | | Date of [...] scar is 0.9cm from the deep margin. Bag Machine Tender | | | sections are submitted asfollows: A1 - tips; A2-A8 - entire lesion | | | blocked out. (pam/[id number]) Jackson Vivar M.D. Electronically | | | signed 10/09/2015 13:07 Performed at [facility] | | | [place] [address] CLIA#: | | | [id number]: Unless otherwise specified, a microscopic exam | | | has been performed. Received Date: 10/07/2015Collection Date: | | | 10/07/2015Referring Physician: Jesus IRVIN, [facility] | | | Physician copies: | [...] | | |cm from the deep margin. Bag Machine Tender sections are submitted as | | |follows: A1 - tips; A2-A8 - entire lesion blocked out. ([id number]) | | | | | | | | | | | | | | | Jackson Vivar M.D. Electronically signed 10/09/2015 13:07 (430) | | |[phone] Performed at [facility], [address] [place] [address], | | |[place] [address] [facility]#: [id number] | | |Microscopic: Unless otherwise specified, a [...] + + | REFERENCE LAB | [address] [facility] | [place] [address] | [phone] | | [employer] | [address] | | | + + [...]
--- OUTSIDE RECORDS SUMMARY | ~2020-03-10 | XMS | Encounter Summary ---
Demographics + + + | Address | [address] | | | [place] [address] | + + + | Home Phone | | + + + | Preferred Language | Unknown | + + + | Marital Status | | + + + | Yarsanism Affiliation | 1027 | + + + | Race | Unknown | + + + | Ethnic Group | Unknown | + + + Author + + + | Author | [facility] | | | and [place] | + + + | Organization | [facility] | | [...] + +------+ + | Care Director Of Hemophilia Name | Role | Phone | + [...] | [facility] [place] | [address] [facility] | | | | | INTRA [address] | [address] | | | | | [address] | [place] | | | | | [place] | [phone] | | | | | [phone] | | | +--------+ + + + [...]
--- OUTSIDE RECORDS SUMMARY | ~2020-03-10 | XMS | Encounter Summary ---
Demographics + + + | Address | [address] | | | [place] [address] | + + + | Home Phone [...] Team Providers + +------+ + | Care Circus Rider Name | Role | Phone | + [...] | | Hernia, | Stephanie Lam, | [facility] [address] | | | | | hiatal | [place] [address] | | | | | | [address] | Mailcode: | | | | | | [place], | [facility] | | | | | | [place] [address] | [facility] and | | | | | | Phone: | Healing, | | | | | | [phone] | [address] | | | | | | Fax: | [place], [place] | | | | | | [phone] | [address] | | | | | | | Phone: | | | | | | | [phone] | | | | | | | Fax: | | | | | | | [phone] | +--------+--------+ + + + + Encounter Details +--------+---------+ + + + | Date | Type | Department | Care Team | Description | +--------+---------+ + + + | 08/19/ | Office | [facility] | Emily Joyner, | Severe obesity (HCC) | | 2019 | Visit | Therapy Services at | PT,DPT [address] | (Primary Dx) | | | | [facility] | [address] | | | | | [address] | [place], [place] | | | | | Mailcode: CH3P | [address] | | | | | [facility] | | | | | | and Benjamin, | | | | | | [facility] [address] | | | | | | Floor [place], [place] | | | | | | [address] | | | | | | [phone] | | | +--------+---------+ + + + [...] care for t he certification period documented. [facility] PHYSICAL THERAPY EVALUATION Past Medical History: Diagnosis [...] Moderate - Moderate complexity Complexity: Moderate - 70277 The patient requires services that can be [...] change in their status. Emily Joyner, PT,DPT [facility] PHYSICAL THERAPY SERVICES AT [facility] Scheduled Appointment time: 2:30 PM The patient was seen for a total of 45 minutes of treatment time. 45 minutes was in direct contact care as described above and on completed flow sheets. Treatment Interventions duration in minutes: Procedure:Physical Therapy Evaluation and Ther apeutic Activities 15 min Authorization information for first visit and progress reports Procedure Codes: Re-evaluation 52570, Therapeutic Exercise 73246, Manual Therapy 01943, Th erapeutic Activities 77805, Neuromuscular Reeducation 29290, Gait Training 65849 and Self-ca re ADL 89008 Minutes per session: 45 Total number of visits: 1 visit only Frequency: 1 visit only Duration: n/a (must exceed or match Medicare service period reques t) Service period from: 08/19/2019 to: 08/19/2019 (Medicare must match duration or be no gre ater than 90 days if proposed duration is greater than 3 months) Start of care: 08/19/2019 Referral information Authorizing Provider: ANGELI BARRERA [[id number]] Onset/Referral Date: 07/08/19 Primary/Referral Diagnosis: E66.01 Severe [...] ACTIVITIES | e | 3:39 PM | ([facility]) | | | | | PDT | | | + +--------+ + + + documented in this encounter Visit Diagnoses + + | Diagnosis | + + | Severe obesity (HCC) - Primary Morbid obesity | + + documented in this encounter
--- OUTSIDE RECORDS SUMMARY | ~2020-03-10 | XMS | Encounter Summary ---
Demographics + + + | Address | [address] | | | [place] [address] | + + + | Home Phone [...] Providers + +------+ + | Care Work And Family Life Consultant Name | Role | Phone | [...]
--- OUTSIDE RECORDS SUMMARY | ~2020-03-10 | XMS | Encounter Summary ---
Demographics + + + | Address | [address] | | | [place] [address] | + + + | Home Phone | | + + + | Preferred Language | Unknown | + + + | Marital Status | Single | + + + | Zoroastrianism Affiliation | Unknown | + + + [...] Team Providers + +------+ + | Care Blocker And Cutter Contact Lens Name | Role | Phone | + [...] Bill | | | | | | [place], [place] | | | | | | [address] | | | | | | [phone] | | | +--------+------+ + + + [...] results section. | | | | | ([facility]) Depression, | | | | [...] results section. | | | | | ([facility]) Depression, | | | | [...] B: | | | | | | OptiScan Biomedical/CSPerformed | | | | | | by [employer],[address] | | | | | | [facility] | | | | | | [address] | | | | | | [phone].Polimetrix. | | | | | | [facility] hospitalJeffrey MD, | | | | | [...] [facility] | [address] | [place], [place] | | | UNIV PTH - INTFC | | [address] | | + + + + + [...] [facility] | | | (ROC ALEXIS) | [employer],[address] | | REG UNIV | | | SERUM | [place], [facility],[place] | | PTH - INTFC | | | | [address] | | | | | | [phone].SupplyFramelab. | | | | | | Jeffrey [...] B: | | | | | | Polimetrix.Adviesmanager.nl/CS | | | | + + + + + + + + | Specimen | + + | Blood - Blood | | (substance) | + + + + + + + | Performing | Address | City/State/Zipcode | Phone Number | | Organization | | | | + + + + + | [facility] | [address] | [place], [place] | | | UNIV PTH - INTFC | | [address] | | + + + + + [...] | + + + + + | [facility] | [address] | [place] [address] | | | SERVICES, CORE | ABEBA [...] | + + + + + | [facility] | [address] | [place] [address] | | | DEANDRE, ROSALIA | ABEBA [...] | | | | | determined by [employer] | | | | | | Laboratories. See | | | | | | Compliance Statement B: | | | | | | [email or web address].[email or web address].nl/CSPerformed | | | | | | by [employer],[address] | | | | | | [facility],[place] | | | | | | [address] | | | | | | [phone].Polimetrix. | | | | | | com, [...] + | [facility] | [address] [facility] | [place], [place] | | | UNIV PTH - INTFC | | [address] | | + + + + + [...] INTFC | | | | determined by [employer] | | | | | | HowDo. See | | | | | | Compliance Statement B: | | | | | | OptiScan Biomedical/CSPerformed | | | | | | by [employer],[address] | | | | | | [place], [place] | | | | | | [address] | | | | | | [phone].Transparent IT Solutionslab. | | | | | | Jeffrey [...] [facility] | [address] | [place], [place] | | | UNIV PTH - INTFC | | [address] | | + + + + + [...] + + + + + | [facility] | [address] | [place] [address] | | | SERVICES, SWANZEY FOR | | | | | HEALTH [...] | | | | | determined by [employer] | | | | | | HowDo. See | | | | | | Compliance Statement B: | | | | | | [email or web address].[email or web address].nl/CSPerformed | | | | | | by [employer],[address] | | | | | | [facility],[place] | | | | | | [address] | | | | | | [phone].Polimetrix. | | | | | | [facility] hospitalJeffrey MD, | | | | | [...] [facility] | [address] | [place], [place] | | | UNIV PTH - INTFC | | [address] | | + + + + + [...] [facility] | [address] | [place] [address] | | | SERVICES, CORE | PARK [...] [facility] | [address] | [place] [address] | | | SERVICES, CORE | PARK [...] | + + + + + | [employer] | [address] | [place] [address] | | | SERVICES, SPECIAL | ABEBA [...] | [facility] | | considered for monitoring longterm glycemic control in patients with: | LABORATORY [...] + + + + + | [facility] | [address] | [place] [address] | | | SERVICES, SPECIAL | PARK [...] | + + + + + | [facility] | [address] | [place] [address] | | | DEANDRE, ROSALIA | ABEBA [...] | | | | | determined by [facility] | | | | | | Laboratories. See | | | | | | Compliance Statement B: | | | | | | [email or web address].[email or web address].nl/CSPerformed | | | | | | by [employer],[address] | | | | | | [facility],[place] | | | | | | [address] | | | | | | [phone].SupplyFramelab. | | | | | | com, [...] [facility] | [address] | [place], [place] | | | UNIV PTH - INTFC | | [address] | | + + + + + [...] SERVICES, | | | | | | SWANZEY FOR | | | | | | [...] | | | LABORATORY | | | CUBAN | | | SERVICES, | | | [...] equation recommended by the National | [facility] | | Kidney Disease Education Program. [...] | + + + + + | [facility] | [address] | [place] [address] | | | [facility] | | | | | HEALTH + HEALING | | | | + + + + + documented in this encounter Visit Diagnoses Not on filedocumented in this encounter"
--- OUTSIDE RECORDS SUMMARY | ~2020-03-10 | XMS | Encounter Summary ---
Demographics + + + | Address | [address] | | | [place] [address] | + + + | Home Phone [...] Organization | [facility] | | | and Maverickana [...] Team Providers + +------+ + | Care Community Outreach Specialist Name | Role | Phone | [...] | | | | | | [place] [address] | | | | | | [phone] | | | +--------+ + + + [...]
--- OUTSIDE RECORDS SUMMARY | ~2020-03-10 | XMS | Encounter Summary ---
Demographics + + + | Address | [address] | | | [place] [address] | + + + | Home Phone | | + + + | Preferred Language | Unknown | + + + | Marital Status | | + + + | Shinto Affiliation | 1027 | + + + | Race | Unknown | + + + | Ethnic Group | Unknown | + + + Author + + + | Author | [facility] | | | and [place] | + + + | Organization | [facility] | | | and [...] Team Providers + +------+ + | Care Train Gate Attendant Name | Role | Phone | [...] | | | | | | | LA CATH | | | | | | | PLACE/CORON | | | | | | | ANGIO, IMG | | | | | | | SUPER/INTERP | | | | | | | ,W LEFT | | | | | | | HEART | | | | | | | VENTRICULOGR | | | | | | | APHY LA PRQ | | | | | | | TRLUML | | | | | | | CORONARY | | | | | | | STENT | | | | | | | W/ANGIO ONE | | | | | | | ART/BRNCH | | | | | | | LA PRQ | | | | | | [...] + + | 01/02/ | Hospital | [facility] | Kiko Jozef | | | 2015 | Encounter | [facility] | MD Janette [address] | | | | | [address] | [place] | | | | | [place] | [address] | | | | | [address] | [phone] | | | | | [phone] | | | +--------+ + + + [...] + documented in this encounter Discharge Summaries Jzoef Hoover MD - 01/02/2015 9:25 AM PDTFormatting of this note might be different fr om the original. Physician Discharge Summary Patient ID: Tiffanie Valentin [id number] y.o. 1950 Admit date: 01/02/2015 Discharge date and time: No discharge date for patient encounter. Admitting Physician: Jozef oHover MD Discharge Physician: Jozef Hoover MD [facility] Interventional Cardiology [place], [place] Admission Diagnoses: Nonspecific abnormal unspecified cardiovascular [...] present. Please notify your MD and/or your Switch Technician if any of the follo wing occur: [...] + | Jozef Hoover MD 01/02/2015 9:22 [facility] | [facility] | | [facility] CARDIAC CATHETERIZATION REPORT PATIENT | | | NAME: | | | Tiffanie Valentin DATE OF : | | | 1950 MEDICAL | | | RECORD NUMBER: [id number] | | | DATE OF PROCEDURE: | | | 01/02/2015 FACILITY: | | | [facility] | | | [place], [place] | | | | | | PRIMARY CARE PROVIDER: | | | Peng Fink PRIMARY STAFF INTERNIST OFFICE BASED ONLY: | | | Jozef Hoover MD [facility] Interventional Cardiology | | | [place] STAFF DEVELOPER: | | | Dr. Jozef Hoover MD | | | [facility] PRE-PROCEDURE DIAGNOSIS: | | | abnormal [...] | | in multiple views using 6 Irish tiger catheter to engage the | | [...] Jozef Siddiqui | | | MD Kiko [facility] Interventional Cardiology [place] | | | [place] 01/02/2015 9:20 | | + + + [...] | | | | 324 mg, Oral, LATEXER, Starting | | 15 7:29 | | [...] | mLs | | | | Intravenous, LATEXER, Starting | | AM PDT | | [...]
--- OUTSIDE RECORDS SUMMARY | ~2020-03-10 | XMS | Encounter Summary ---
Demographics + + + | Address | [address] | | | [place] [address] | + + + | Home Phone [...] Team Providers + +------+ + | Care Central Supply Aide Name | Role | Phone | + +------+ + | Stephanie [place] | PCP | | + +------+ + Encounter Details +--------+ + + + + | Date | Type | Department | Care Team | Description | +--------+ + + + + | 07/10/ | Abstract | Digestive Health | Clinic, Surgery | | | 2019 | | [place] [facility] [address] | | | | | | [address] | | | | | | Mailcode: [place] | | | | | | for Health and | | | | | | Healing, Building [address] | | | | | | [place], [place] | | | | | | [address] | | | | | | [phone] | | | +--------+ + + + [...]
--- OUTSIDE RECORDS SUMMARY | ~2020-03-10 | XMS | Clinical Summary ---
Demographics + + + | Address | [address] | | | [place] [address] | + + + | Home Phone [...] | [facility] | | | and [place]verickana [...] Providers + +------+ + | Care Train Brakeman Name | Role | Phone | + [...] +--------+ +--------+ +---------+--------+ | LIFE | | [id number] | | [phone] | | Indemn | | | MDCR | | 016-Pr | 0 | | ity | | | SUPPL | | esent | | | | + +--------+ +--------+ +---------+--------+ | MEDICARE | MEDICA | [id number] | 06/23/20 | [phone] | | Medica [...] | 1950 | [phone] | [place] [address] | | | fabian | | | 7 (Home) | | | | | | | [phone] | | | | | | | 2 (Work) | | + +--------+ +--------+ + + Advance Directives + + + + + | Type | Date Recorded | Patient | Explanation | | | | Scallop Dredger | | + + + + + | Power of | | | | | Fleecer | | | | + + + [...]
--- OUTSIDE RECORDS SUMMARY | ~2020-03-10 | XMS | Encounter Summary ---
Demographics + + + | Address | [address] | | | [place] [address] | + + + | Home Phone | | + + + | Preferred Language | Unknown | + + + | Marital Status | Single | + + + | Confucianism Affiliation | Unknown | + + + | Race | White | + + + | Ethnic Group | Not or | + + + Author + + + | Author | [facility] | + + + | Organization | [facility] | + + + | Address | Unknown | + + + | Phone | Unavailable | + + + Support + + +---------+ + | Name | Relationship | Address | Phone | + + +---------+ + | Marifer Valentin | ECON | Unknown | | + + +---------+ + Care Team Providers + +------+ + | Care Dialysis Nurse Name | Role | Phone | [...] | Mailcode: | | | | | ([facility]) | [place], [place] | Center for | | | | | Procedures | [address] | Health and | | | | | PHYSICAL | Phone: | Healing, | | | | | THERAPY | [phone] | Building 2 | | | | | REFERRAL | Fax: | [place], [place] | | | | | | [phone] | [address] Phone: | | | | | | | [phone] | | | | | | | Fax: | | | | | | | [phone] | + +--------+ + + + + Encounter Details +--------+ + + + + | Date | Type | Department | Care Team | Description | +--------+ + + + + | 07/08/ | Outsole Molder | Digestive Health | Cindy Goyal, | Severe obesity (BMI | | 2019 | | Center at [facility] [address] | HOME ATTENDANT [address] | >= 40) ([facility]) | | | | [address] | [place], [place] | (Primary Dx) | | | | Mailcode: [place] | [address] | | | | | for Health and | [phone] | | | | | [facility] [address] | | | | | | [place], [place] | | | | | | [address] | | | | | | | [...]
--- OUTSIDE RECORDS SUMMARY | ~2020-03-10 | XMS | Encounter Summary ---
Demographics + + + | Address | [address] | | | [place] [address] | + + + | Home Phone | | + + + | Preferred Language | Unknown | + + + | Marital Status | | + + + | Hoahaoism Affiliation | 1027 | + + + | Race | Unknown | + + + | Ethnic Group | Unknown | + + + Author + + + | Author | [facility] | | | and [place] | + + + | Organization | [facility] | | | and [...] Team Providers + +------+ + | Care Souvenir And Novelty Maker Name | Role | Phone | [...] [place] | | | | | [place] EX[place] | | [address] | | | | | [place] | | Phone: | | | | | 2.1-3CM | | [phone] | | | | | TRUNK,ARM,LE | | Fax: | | | | | G [place] SPLIT | | [phone] | | | | | GRFT | [...] | | | | | [facility] [address] | [address] [place], | | | | | [address] | [place] [address] | | | | | [place] | [phone] | | | | | [phone] | | | +--------+ + + + [...] CORONARIES/CORONARY INTERVENTION; Surgeon: Jozef Hoover MD; Location: [facility] CARDIOVASCULAR LAB Carpal tunnel release Left 11/19/2007 Dr. Trey Morrell Carpal tunnel release Right 10/04/2007 Dr. Trey Morrell Eye surgery Bilateral cataracts with lens implant Skin full graft Right 10/07/2015 Procedure: EXCISION OF RIGHT UPPER BACK BASAL CELL CARCINOMA; Surgeon: Sundeep Lee MD; Location: [facility] ALL[facility]IES: Review of patient's allergies indicates no [...] appointment: Appointment with Dr. Lee at the [facility] in the [facility] in 1 week as scheduled. Activity: [...] Follow-up with Dr. Lee at the [facility], 2nd Floor on 10/13 at 8:00am. [...] dependent perso n for the next 24 hours.:73225} documented in this encounter Medications at Time [...] | | 65Date of : 1950 CASE: [id number]: Tiffanie | CELLNETI X | | [facility] [id number]: Tiffanie Valentin | | | Date of [...] scar is 0.9cm from the deep margin. Picker Packer | | | sections are submitted asfollows: A1 - tips; A2-A8 - entire lesion | | | blocked out. (pam/[id number]) Jackson Vivar M.D. Electronically | | | signed 10/09/2015 13:07 Performed at [facility] | | | [place] [address] CLIA#: | | | [id number]: Unless otherwise specified, a microscopic exam | | | has been performed. Received Date: 10/07/2015Collection Date: | | | 10/07/2015Referring Physician: Jesus IRVIN, Sundeep [facility] Center[facility]ole | | | Physician copies: [...] | | |cm from the deep margin. Picker Packer sections are submitted as | | |follows: A1 - tips; A2-A8 - entire lesion blocked out. (pam/[id number]) | | | | | | | | | | | | | | | Jackson Vivar M.D. Electronically signed 10/09/2015 13:07 (906) | | |[phone] Performed at [facility] Pathology[address], | | |[place] [address] [facility]#: [id number] | | |Microscopic: Unless otherwise specified, a [...] + + | REFERENCE LAB | [address] | [place] [address] | [phone] | | CELLNETIX | [address] | | [...]
--- OUTSIDE RECORDS SUMMARY | ~2020-03-10 | XMS | Encounter Summary ---
Demographics + + + | Address | [address] | | | [place] [address] | + + + | Home Phone [...] Organization | [facility] | | | and [...] Team Providers + +------+ + | Care Over Short And Damage Clerk Name | Role | Phone | [...] | | | | | [address] | [place] | | | | | [place] | [address] | | | | | [address] | | | | | | [phone] | | | +--------+ + + + [...] 07/16/18 1640 by | | j[place] | [id number] catheter system; | Mary Carmen Smith, | [...]
--- OUTSIDE RECORDS SUMMARY | ~2020-03-10 | XMS | Encounter Summary ---
Demographics + + + | Address | [address] | | | [place] [address] | + + + | Home Phone [...] Team Providers + +------+ + | Care Wirer Passenger Car Name | Role | Phone | + [...] | [facility] | | | with MANAGER BIOSTATISTICS | | obesity (BMI | [address] | [address] | | | | | >= 40) | Angel Thompson | [address] | | | | | ([facility]) | Rd | Mailcode: | | | | | Procedures | [place], [place] | [place] for | | | | | CONSULT TO | [address] | Health and | | | | | BARIATRIC | Phone: | Healing, | | | | | SURGERY | [phone] | Building [address] | | | | | | Fax: | [place], [place] | | | | | | [phone] | [address] | | | | | | | Phone: | | | | | | | | | | | | | | Fax: | | | | | | | [phone] | + + + + + + [...] | | | (HCC) | Rd | [place], [place] | | | | | Procedures | [facility] [place] | [address] | | | | | CONSULT TO | [address] | Phone: | | | | | CARDIOLOGY | Phone: | [phone] | | | | | | [phone] | Fax: | | | | | | Fax: | [phone] | | | | | | [phone] | | +--------+--------+ + + + + [...] Center | | | | | | [place] [address] | Health and | | | | | | Phone: | Healing, | | | | | | [phone] | Building 2 | | | | | | Fax: | [place], [place] | | | | | | [phone] | [address] | | | | | | | Phone: | | | | | | | [phone] | | | | | | | Fax: | | | | | | | [phone] | +--------+--------+ + + + + Encounter Details +--------+---------+ + + + | Date | Type | Department | Care Team | Description | +--------+---------+ + + + | 06/14/ | Office | Digestive Health | Marita Hadley, | Hiatal hernia with | | 2019 | Visit | Center at [facility] [address] | MD [address] | GERD (Primary Dx); | | | | [address] | [place], [place] | Severe obesity (BMI | | | | Mailcode: Center | [address] | >= 40) ([facility]) | | | | for Health and | [phone] | | | | | Healing, [address] | | | | | | [place], [place] | | | | | | [address] | | | | | | [phone] | | | +--------+---------+ + + + [...] twice daily dosing. Please follow-up with Dr. Hdaley in six months. [facility] Foregut and Bariatric Surgery ClinicElectronically signed by Ly Vo MD at 06/14 4:49 PM PDT documented in this encounter Progress Notes Ly Vo MD - 06/14/2019 2:50 PM PDT [facility] Department of Surgery Red Surgery Clinic Note [...] Family History: Reviewed, notable for history of [place] in father. 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 Lives at home with daughter and [...] 20 mg by mouth once daily. 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 Ly Vo MD [facility] Department of Surgery PGY-2 | [id number] STAFF: I saw and evaluated the patient. I agree with the findings and the plan of care as kylie armendariz in the resident s note. Marita Hadley MD [facility] [address] Mailcode: [place] [address] documented in this encounter Plan of Treatment Not on filedocumented as of this encounter Visit Diagnoses + + | Diagnosis | + + | Hiatal hernia with GERD - Primary | + + | Severe obesity (BMI >= 40) ([facility]) Morbid obesity | + + documented in this encounter
--- OUTSIDE RECORDS SUMMARY | ~2020-03-10 | XMS | Encounter Summary ---
Demographics + + + | Address | [address] | | | [place] [address] | + + + | Home Phone [...] + + + | Author | [facility] | | | and [place] | + + + | Organization | [facility] | | | and Maverickana [...] Team Providers + +------+ + | Care Antique Refinisher Name | Role | Phone | + [...] | | | | [place] | [phone] | (Primary Dx) | | | | [address] | | | | | | [phone] | | | +--------+---------+ + + + [...] of your lunch hour to take a [employer] Walk to the [employer] to get your paper instead of having [...] start an exercise mirna m. Have a group fitness instructor help you develop a plan that s safe for you. 0292-4320 [employer]. [address] [place] [address]. All righ ts reserved. This information is [...] CORONARIES/CORONARY INTERVENTION; Surgeon: Jozef Hoover MD; Location: [facility] CARDIOVASCULAR LAB Carpal tunnel release Left 11/19/2007 [...] made to ensure accuracy. However, inadvertent computerized housing director errors may be pr esent. documented in [...]
--- OUTSIDE RECORDS SUMMARY | ~2020-03-10 | XMS | Encounter Summary ---
Demographics + + + | Address | [address] | | | [place] [address] | + + + | Home Phone | | + + + | Preferred Language | Unknown | + + + | Marital Status | | + + + | Sabianism Affiliation | 1027 | + + + | Race | Unknown | + + + | Ethnic Group | Unknown | + + + Author + + + | Author | [facility] | | | and [place] | + + + | Organization | [facility] | | | and [place]verickana [...] Providers + +------+ + | Care Supervisor Mold Yard Name | Role | Phone | + [...] | | | | [place] | [phone] | (Primary Dx) | | | | [address] | | | | | | [phone] | | | +--------+---------+ + + + [...] of your lunch hour to take a [employer]. Walk to the [employer] to get your paper instead of having [...] start an exercise mirna m. Have a home paraprofessional help you develop a plan that s safe for you. 7867-4496 [employer]. [address] [place] [address]. All righ ts reserved. This information is [...] CORONARIES/CORONARY INTERVENTION; Surgeon: Jozef Hoover MD; Location: [facility] CARDIOV[facility]ULAR LAB Carpal tunnel release [...] made to ensure accuracy. However, inadvertent computerized carpenter assembler errors may be pr esent. documented in [...]
--- OUTSIDE RECORDS SUMMARY | ~2020-03-10 | XMS | Encounter Summary ---
Demographics + + + | Address | [address] | | | [place] [address] | + + + | Home Phone [...] | Organization | [facility] | | | and [place] | [...] Team Providers + +------+ + | Care Oracle Webcenter Consultant Name | Role | Phone | [...] [facility]AL MED CTR IP | [address] [facility] [address] | | | | | GENERIC CONV [address] | [address] | | | | | [place], | [address] | | | | | [place] [address] | | | | | | [phone] | | | +--------+ + + + [...]
--- OUTSIDE RECORDS SUMMARY | ~2020-03-10 | XMS | Encounter Summary ---
Demographics + + + | Address | [address] | | | [place] [address] | + + + | Home Phone [...] + + + | Author | [facility] | + + + | Organization | [facility] | + + + | Address | Unknown | + + + | Phone | Unavailable | + + + Support + + +---------+ + | Name | Relationship | Address | Phone | + + +---------+ + | Marifer Valentin | ECON | Unknown | | + + +---------+ + Care Team Providers + +------+ + | Care Ball Mill Mixer Name | Role | Phone | + +------+ + | Stephanie Washington | PCP | | + +------+ + Encounter Details +--------+ + + + + | Date | Type | Department | Care Team | Description | +--------+ + + + + | 07/08/ | Documentati | Digestive Health | Clinic, Surgery | | | 2019 | on | Center at [facility] [address] | | | | | | [address] | | | | | | Mailcode: Mobile | | | | | | for Health and | | | | | | Healing, Building [address] | | | | | | [place], [place] | | | | | | [address] | | | | | | [phone] | | | +--------+ + + + [...]
--- OUTSIDE RECORDS SUMMARY | ~2020-03-10 | XMS | Encounter Summary ---
Demographics + + + | Address | [address] [facility] [address] | | | [place] [address] | + + + | Home Phone | | + + + | Preferred Language | Unknown | + + + | Marital Status | | + + + | Sikh Affiliation | 1027 | + + + | Race | Unknown | + + + | Ethnic Group | Unknown | + + + Author + + + | Author | [facility] | | | and [place] | + + + | Organization | [facility] | | | and Maverickana [...] Team Providers + +------+ + | Care Automotive Design Drafter Name | Role | Phone | + [...] [place] | | | | | [address] | [phone] | | | | | [phone] | | | +--------+ + + + [...] | | + +--------+ +---------+------+ + | fywgukf-wkccthjaky-omkjdqxug | Given | 12/25/20 | 0.5 mLs [...]
--- OUTSIDE RECORDS SUMMARY | ~2020-03-10 | XMS | Encounter Summary ---
Demographics + + + | Address | [address] | | | [place] [address] | + + + | Home Phone [...] Organization | [facility] | | | and Maverickana [...] Team Providers + +------+ + | Care Hot Punch Press Operator Name | Role | Phone | [...] [facility] IP | [address] [facility] [address] | | | | | GENERIC CONV [address] | [address] | | | | | [place], | [address] | | | | | [place] [address] | | | | | | [phone] | | | +--------+ + + + [...]
--- OUTSIDE RECORDS SUMMARY | ~2020-03-10 | XMS | Encounter Summary ---
Demographics + + + | Address | [address] | | | [place] [address] | + + + | Home Phone [...] Team Providers + +------+ + | Care Mangle Press Catcher Name | Role | Phone | [...] | Mailcode: | | | | | ([facility]) | [place], [place] | Center for | | | | | Procedures | [address] | Health and | | | | | PHYSICAL | Phone: | Healing, | | | | | THERAPY | [phone] | Building 2 | | | | | REFERRAL | Fax: | [place], [place] | | | | | | [phone] | [address] Phone: | | | | | | | [phone] | | | | | | | Fax: | | | | | | | [phone] | + +--------+ + + + + Encounter Details +--------+ + + + + | Date | Type | Department | Care Team | Description | +--------+ + + + + | 07/08/ | Communication Coordinator | Digestive Health | Cindy Goyal, | Severe obesity (BMI | | 2019 | | Center at [facility] 3485 | DATA CENTER TECHNICIAN [address] | >= 40) ([facility]) | | | | [address] | [place], [place] | (Primary Dx) | | | | Mailcode: [place] | [address] | | | | | for Health and | [phone] | | | | | [facility], [facility] 2 | | | | | | [place], [place] | | | | | | [address] | | | | | | | [...]
--- OUTSIDE RECORDS SUMMARY | ~2020-03-10 | XMS | Encounter Summary ---
Demographics + + + | Address | [address] | | | [place] [address] | + + + | Home Phone | | + + + | Preferred Language | Unknown | + + + | Marital Status | | + + + | Uatsdin Affiliation | 1027 | + + + | Race | Unknown | + + + | Ethnic Group | Unknown | + + + Author + + + | Author | [facility] | | | and [place] | + + + | Organization | [facility] | | | and [...] Team Providers + +------+ + | Care Moulder Operator Name | Role | Phone | [...] [facility] IP | MD Barrett [address] | | | | | GENERIC CONV [address] | [address] | | | | | [place], | [phone] | | | | | [place] | | | | | | [phone] | | | +--------+ + + + [...]
--- OUTSIDE RECORDS SUMMARY | ~2020-03-10 | XMS | Encounter Summary ---
Demographics + + + | Address | [address] | | | [place] [address] | + + + | Home Phone [...] Author + + + | Author | [facility] | + + + | Organization | [facility] | + + + | Address | Unknown | + + + | Phone | Unavailable | + + + Support + + +---------+ + | Name | Relationship | Address | Phone | + + +---------+ + | Marifer Valentin | ECON | Unknown | | + + +---------+ + Care Team Providers + +------+ + | Care Services Coordinator Name | Role | Phone | [...] Medical Records | | 2019 | | [place] [facility] [address] | | Review | | | | [address] [address] | | | | | | Mailcode: [place] | | | | | | [facility] and | | | | | | [facility] 2 | | | | | | [place], [place] | | | | | | [address] | | | | | | [phone] | | | +--------+ + + + [...]
--- OUTSIDE RECORDS SUMMARY | ~2020-03-10 | XMS | Encounter Summary ---
Demographics + + + | Address | [address] [facility] [address] | | | [place] [address] | + + + | Home Phone [...] + + + | Organization | [facility] | [...] Providers + +------+ + | Care Music Intern Name | Role | Phone | [...] [facility] IP | MD Barrett [place] | | | | | GENERIC CONV [address] | [address] | | | | | [place], | [phone] | | | | | [place] | | | | | | [phone] | | | +--------+ + + + [...]
--- OUTSIDE RECORDS SUMMARY | ~2020-03-10 | XMS | Clinical Summary ---
Demographics + + + | Address | [address] | | | [place] [address] | + + + | Home Phone [...] Author + + + | Author | [facility] | + + + | Organization | [facility] | + + + | Address | Unknown | + + + | Phone | Unavailable | + + + Support + + +---------+ + | Name | Relationship | Address | Phone | + + +---------+ + | Marifer Valentin | ECON | Unknown | | + + +---------+ + Care Team Providers + +------+ + | Care Boatbuilder Apprentice Wood Name | Role | Phone | + +------+ + | Stephanie Washington | PCP | | + +------+ + Source Comments NICOLE is fully live on both [facility] Ambulatory and [facility] InPatient.[facility] Allergies No Known Allergies Medications + + [...] | MODA | xxxxxxxxx | 10/23/19 | [phone] | [address] | PPO | | | MEDICA | | 20-Pre | 4 | [address] | | | | RE PPO | | sent | | [place], | | | | | | | | [place] [address] | | + +--------+ +--------+ + +------+ + +--------+ +--------+ + + | Guarantor Name | Accoun | Relation to | Date | Phone | Billing Address | | | t Type | Patient | of | | | | | | | | | | + +--------+ +--------+ + + | Tiffanie Valentin | Person | Self | [birth year] | [address] | | | al/Fam | | 1949 | [phone] | [place] | | | fabian | | | 8 (Home) | [address] | + +--------+ +--------+ + +
--- OUTSIDE RECORDS SUMMARY | ~2020-03-10 | XMS | Encounter Summary ---
Demographics + + + | Address | [address] | | | [place] [address] | + + + | Home Phone [...] Organization | [facility] | [...] Team Providers + +------+ + | Care Circulation Worker Name | Role | Phone | [...] | | | left upper | | [address] | | | | | extremity, | | Phone: | | | | | including | | [phone] | | | | | shoulder | | Fax: | | | | | Procedures | | [phone] | | | | | [place] EXC [...] | | | INTRA MAIN [address] | [facility] [address] | LEFT BASAL CELL | | | | [address] | [place] | CARCINOMA EXCISION | | | | [place] | | | | | | [phone] | [phone] | | | | | | | [...] interact with your prescription medicines or other yuoy-osj-gusokwc (OTC) drugs. Some pr escription medicines have [...] REPORT CASE: | CELLNETI X | | [id number]: Tiffanie Leighathology Report [id number]: | | | Tiffanie Valentin Date of [...] mass or lesion | | | isidentified. Coal Washer sections are submitted as follows: A1 | [...] - centralareas with | | | hemorrhage. ([id number]) Dominique Ordaz M.D. | | | Electronically signed 11/20/2015 19:55 Performed at | | | [facility], Critical [place] [address] | | | CLIA#: [id number] ADDENDUM: #1 FLUORESCENCE IN-SITU HYBRIDIZATION | | | (FISH) STUDIES:Source: Block V41Oqxheaonct: Cells of interest Name | | | [...] | | found to harboramplification of the 10u41-91 region, which includes | | | the [...] is | | | determined and a MDM2/HDT62qfhzo is calculated for each case. A | [...] 405Extremity-based Tumors. Am J Surg Pathol 2010; 34:6171-4190. | | | Methodology: Fluorescence in situ hybridization (FISH) for MDM2 | | | geneamplification (using MDM2/CEP12 probes and the [employer]trees | | | Metaferautomated scanning fluorescent microscope) is performed at | | | [place]. [address]. Test results should be used in | | | conjunction with other availablelaboratory and clinical information. | | | This test was developed and itsperformance characteristics determined | | | by the Molecular PathologyLaboratory, [facility] | | | Laboratories. It has [...] Cheryl Ortiz MD. | | | Electronically rhdiji8411/23/2015 16:02 Performed at | | | [facility],[address] [place] [address], [place], | | | [place] [address] CLIA#:[id number]: Unless otherwise | | | specified, a microscopic exam has been performed. Received Date: | | | 01/26/2016Collection Date: 11/17/2015Referring Physician: Jamar IRVIN, | | | Guille Roncarilion clinicnicole Physician copies: | | | | | | | | | | | |Several studies have shown that molecular analysis refines the | | |classification of lipomatous tumors and is useful to discriminate | | |lipomas from atypical lipomatous tumor/well-differentiated liposarcoma | | |(ALT/WDL). Well-differentiated liposarcomas have been found to harbor | | |amplification of the 15h57-45 region, which includes the MDM2 (murine | [...] |Extremity-based Tumors. Am J Surg Pathol 2010; 34:1883-8108. | | | | | |Methodology: Fluorescence in situ hybridization (FISH) for MDM2 gene | | |amplification (using MDM2/CEP12 probes and the Clicktrees Metafer | | |automated scanning fluorescent microscope) is performed at [facility], | | |[place]. [address]. | | | | | |Test results should be used in conjunction with other available | | |laboratory and clinical information. This test was developed and its | | |performance characteristics determined by the Molecular Pathology | | |Laboratory, [facility]. It has not been approved [...] signed | | |11/23/2015 16:02 [facility]formed at [facility], | | |[facility] [address] Wagner StreetIA#: | | |[id number] | | |Microscopic: Unless otherwise specified, a microscopic exam has been performed. | | | | | |Received Date: 11/17/2015 | | |Collection Date: 11/17/2015 | | |Referring Physician: Jamar IRVIN, Guille Carolina | | |Additional Physician copies: | | + + -------+ + + + + + | Performing | Address | City/State/[facility] | Phone Number | | Organization | | | | + + + + + | REFERENCE LAB | [address] | [place] [address] | [phone] | | [facility] | [address] | | [...]
--- OUTSIDE RECORDS SUMMARY | ~2020-03-10 | XMS | Encounter Summary ---
Demographics + + + | Address | [address] | | | [place] [address] | + + + | Home Phone | | + + + | Preferred Language | Unknown | + + + | Marital Status | | + + + | Druze Affiliation | 1027 | + + + | Race | Unknown | + + + | Ethnic Group | Unknown | + + + Author + + + | Author | [facility] | | | and [place] | + + + | Organization | [facility] | | | and [place]ver[place]ana | [...] Team Providers + +------+ + | Care Bobcat Operator Name | Role | Phone | [...] | [facility] [place] | [address] | | | | | INTRA MA[address] | [address] | | | | | [address] | [address] | | | | | [place] | | | | | | [phone] | | | +--------+ + + + [...] #: | | | | | | [phone] : | | | | | | 1950 | | | | | | | | | | | | Received:07/20/2005 | | | | | | Accession #: | | | | | | [id number] Clinician: | | | | | | [...] SNOMED | | | | | | T-93795, | | | | | | T-08408, P1-82400, | | | | | | M-69337, T-1A110 | | | | | | [...] dimensions. | | | | | | Snout Puller sections | | | | | | [...] + | REFERENCE LAB | [address] [facility] | [place] [address] | [phone] | | [facility] | 200 | | | + + + + + | [facility] - | [address] [place] [address] NE | [place] [address] | [phone] | | [place] | | | | + + + + + documented in this encounter Visit Diagnoses Not on filedocumented in this encounter
--- OUTSIDE RECORDS SUMMARY | ~2020-03-10 | XMS | Encounter Summary ---
Demographics + + + | Address | [address] | | | [place] [address] | + + + | Home Phone [...] Team Providers + +------+ + | Care Epidemiology Investigator Name | Role | Phone | + [...] | | | [place] Mailcode: | [facility] [place] | | | | | [address] | [address] | | | | | Health and Healing, | [phone] | | | | | [facility] | | | | | | Floor [place], [place] | | | | | | [address] | | | | | | [phone] | | | +--------+ + + + [...] + + + | EXAM: Esophagram with antenna design engineer radiograph HISTORY: Hiatal hernia | [facility] | | with GERD COMPARISON: None TECHNIQUE: Radiation dose reduction | RADIOLOGY VOICE | | technique was maximized where appropriate using pulsed fluoroscopy | RECOGNITION 2 | | and fluoro-store images. Fluoro Time: 81 sec FINDINGS: | | | Double contrast images were obtained with the patient upright in UZBEK | | | position. Single contrast images [...] PM PDT EXAM: Esophagram | | with antenna design engineer radiograph HISTORY: Hiatal hernia with GERD COMPARISON: None TECHNIQUE: | | Radiation dose reduction technique was maximized where appropriate using pulsed | | fluoroscopy and fluoro-store images. Fluoro Time: 81 sec FINDINGS: Double contrast | | images were obtained with the patient upright in UZBEK position. Single contrast images | | were [...] presented. | | | |Final signature: Trena Solaon MD 06/14/2019 2:38 PM | |Preliminary: Trena [...]
--- OUTSIDE RECORDS SUMMARY | ~2020-03-10 | XMS | Encounter Summary ---
Demographics + + + | Address | [address] | | | [place] [address] | + + + | Home Phone [...] Team Providers + +------+ + | Care Mammalogist Name | Role | Phone | + [...]
--- OUTSIDE RECORDS SUMMARY | ~2020-03-10 | XMS | Encounter Summary ---
Demographics + + + | Address | [address] | | | [place] [address] | + + + | Home Phone [...] Team Providers + +------+ + | Care Air Drier Name | Role | Phone | + [...] Medical Records | | 2019 | | [place] [facility] [address] | [address] | Review | | | | [address] | [place], [place] | | | | | Mailcode: [place] | [address] | | | | | for Health and | [phone] | | | | | [facility] 2 | | | | | | [place], [place] | | | | | | [address] | | | | | | [phone] | | | +--------+ + + + [...]
--- OUTSIDE RECORDS SUMMARY | ~2020-03-10 | XMS | Encounter Summary ---
Demographics + + + | Address | [address] [facility] | | | [place] [address] | + + + | Home Phone | | + + + | Preferred Language | Unknown | + + + | Marital Status | | + + + | Hindu Affiliation | 1027 | + + + | Race | Unknown | + + + | Ethnic Group | Unknown | + + + Author + + + | Author | [facility] | | | and Maverickana | + + + | Organization | [facility] | [...] Team Providers + +------+ + | Care Last Turner Name | Role | Phone | + [...] [address] | | | | | [place] EXC SKIN | | [address] | | | | | [place] | | Phone: | | | | | 2.1-3CM | | [phone] | | | | | TRUNK,ARM,LE | | Fax: | | | | | G [place] SPLIT | | [phone] | | | | | GRFT | [...] | | | | | [facility] [address] [place] | [address] [place], | | | | | [address] | [place] [address] | | | | | [place] | [phone] | | | | | [phone] | | | +--------+ + + + [...] CORONARIES/CORONARY INTERVENTION; Surgeon: Jozef Hoover MD; Location: [facility] CARDIOV[facility]ULAR LAB Carpal tunnel release Left 11/19/2007 Dr. Trey Morrell Carpal tunnel release Right 10/04/2007 Dr. Trey Morrell Eye surgery Bilateral cataracts with lens implant Skin full graft Right 10/07/2015 Procedure: EXCISION OF RIGHT UPPER BACK BASAL CELL CARCINOMA; Surgeon: Sundeep Lee MD; Location: [facility] [place] ALLERGIES: Review of patient's allergies indicates no [...] appointment: Appointment with Dr. Lee at the [facility] in the [facility] in 1 week as scheduled. Activity: No [...] with Dr. Lee at the [facility], 2nd Floor on 10/13 at 8:00am. Please [...] dependent perso n for the next 24 hours.:02714} documented in this encounter Medications at Time [...] | | 65Date of : 1950 CASE: [id number]: Tiffanie | CELLNETI X | | [facility] [id number]: Tiffanie Valentin | | | Date of [...] scar is 0.9cm from the deep margin. Machine Sneller | | | sections are submitted asfollows: A1 - tips; A2-A8 - entire lesion | | | blocked out. ([id number]) Jackson Vivar M.D. Electronically | | | signed 10/09/2015 13:07 Performed at [facility] | | | [place] [address] CLIA#: | | | [id number]: Unless otherwise specified, a microscopic exam | | | has been performed. Received Date: 10/07/2015Collection Date: | | | 10/07/2015Referring Physician: Jesus IRVIN, Sundeep [facility] | | | Physician copies: | [...] | | |cm from the deep margin. Machine Sneller sections are submitted as | | |follows: A1 - tips; A2-A8 - entire lesion blocked out. ([id number]) | | | | | | | | | | | | | | | Jackson Vivar M.D. Electronically signed 10/09/2015 13:07 (842) | | |[phone] Performed at [facility] Pathology[address], | | |[place] [address] [facility]#: [id number] | | |Microscopic: Unless otherwise specified, a [...] + + | REFERENCE LAB | [address] [facility] | [place] [address] | [phone] | | [facility] | [address] | | [...]
--- OUTSIDE RECORDS SUMMARY | ~2020-03-10 | XMS | Encounter Summary ---
Demographics + + + | Address | [address] | | | [place] [address] | + + + | Home Phone | | + + + | Preferred Language | Unknown | + + + | Marital Status | Single | + + + | Sikhism Affiliation | Unknown | + + + [...] Team Providers + +------+ + | Care Room Service Attendant Name | Role | Phone | [...] | Bariatri Surg | | | with STUDENT RECRUITER | | obesity (BMI | [address] | [address] | | | | | >= 40) | [address] | [place] | | | | | ([facility]) | Rd | Mailcode: | | | | | Procedures | [place], [place] | [place] for | | | | | CONSULT TO | [address] | Health and | | | | | BARIATRIC | Phone: | Healing, | | | | | SURGERY | [phone] | Building 2 | | | | | | Fax: | [place], [place] | | | | | | [phone] | [address] | | | | | | | Phone: | | | | | | | | | | | | | | Fax: | | | | | | | [phone] | + + + + + + [...] | | | (HCC) | Rd | [place], [place] | | | | | Procedures | [facility] [place] | [address] | | | | | CONSULT TO | [address] | Phone: | | | | | CARDIOLOGY | Phone: | [phone] | | | | | | [phone] | Fax: | | | | | | Fax: | [phone] | | | | | | [phone] | | +--------+--------+ + + + + [...] | | | | | Tri | [facility] | | | | | | [place] [address] | Health and | | | | | | Phone: | Healing, | | | | | | [phone] | Building 2 | | | | | | Fax: | [place], [place] | | | | | | [phone] | [address] | | | | | | | Phone: | | | | | | | [phone] | | | | | | | Fax: | | | | | | | [phone] | +--------+--------+ + + + + Encounter Details +--------+---------+ + + + | Date | Type | Department | Care Team | Description | +--------+---------+ + + + | 06/14/ | Office | Digestive Health | Marita Hadley, | Hiatal hernia with | | 2019 | Visit | Center at [facility] [address] | MD [address] | GERD (Primary Dx); | | | | [address] | [place], [place] | Severe obesity (BMI | | | | Mailcode: Center | [address] | >= 40) ([facility]) | | | | for Health and | [phone] | | | | | Healing, Building 2 | | | | | | [place], [place] | | | | | | [address] | | | | | | [phone] | | | +--------+---------+ + + + [...] follow-up with Dr. Hadley in six months. [facility] Foregut and Bariatric Surgery ClinicElectronically signed by Ly Vo MD at 06/14 4:49 PM PDT documented in this encounter Progress Notes Ly Vo MD - 06/14/2019 2:50 PM PDT [facility] Department of Surgery [facility] [...] Family History: Reviewed, notable for history of [place] in father. 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 Lives at home with daughter and [...] 20 mg by mouth once daily. 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 Ly Vo MD [facility] Department of Surgery PGY-2 | [id number] STAFF: I saw and evaluated the patient. I agree with the findings and the plan of care as kylie armendariz in the resident s note. Marita Hadley MD [facility] AT [facility] [address] [facility] Mailcode: [place] [address] documented in this encounter Plan of Treatment Not on filedocumented as of this encounter Visit Diagnoses + + | Diagnosis | + + | Hiatal hernia with GERD - Primary | + + | Severe obesity (BMI >= 40) ([facility]) Morbid obesity | + + documented in this encounter
--- OUTSIDE RECORDS SUMMARY | ~2020-03-10 | XMS | Encounter Summary ---
Demographics + + + | Address | [address] | | | [place] [address] | + + + | Home Phone [...] Author + + + | Author | [facility] | + + + | Organization | [facility] | + + + | Address | Unknown | + + + | Phone | Unavailable | + + + Support + + +---------+ + | Name | Relationship | Address | Phone | + + +---------+ + | Marifer Valentin | ECON | Unknown | | + + +---------+ + Care Team Providers + +------+ + | Care Coconut Candy Maker Name | Role | Phone | [...] | 2018 | Visit | Center at [facility] [address] | | BMI of 45.0-49.9, | | | [address] | | adult (HCC) (Primary | | | | Mailcode: Center | | Dx) | | | | for Health and | | | | | | [facility] 2 | | | | | | [place], [place] | | | | | | [address] | | | | | | [phone] | | | +--------+---------+ + + + [...] . Documented Time of Class: 60 minutes oceu-oz-yfus with patient OBJECTIVE: Height: Ht Readings from [...] Shoshana Paniagua, MS, RDN, CSOWM, LD, CDE [facility] Bariatrics [phone] documented in this e ncounter Plan of Treatment Not on filedocumented as of this encounter Visit Diagnoses + + | Diagnosis | + + | Morbid obesity with BMI of 45.0-49.9, adult (HCC) - Primary | + + documented in this encounter
--- OUTSIDE RECORDS SUMMARY | ~2020-03-10 | XMS | Encounter Summary ---
Demographics + + + | Address | [address] | | | [place] [address] | + + + | Home Phone [...] Author + + + | Author | [facility] | + + + | Organization | [facility] | + + + | Address | Unknown | + + + | Phone | Unavailable | + + + Support + + +---------+ + | Name | Relationship | Address | Phone | + + +---------+ + | Marifer Valentin | ECON | Unknown | | + + +---------+ + Care Team Providers + +------+ + | Care Human Resources Temp Name | Role | Phone | + +------+ + | Stephanie Washington | PCP | | + +------+ + Encounter Details +--------+ + + + + | Date | Type | Department | Care Team | Description | +--------+ + + + + | 07/08/ | Abstract | Digestive Health | Clinic, Surgery | | | 2019 | | [place] [facility] [address] | | | | | | [address] | | | | | | Mailcode: [place] | | | | | | for Health and | | | | | | Healing, Building 2 | | | | | | [place], [place] | | | | | | [address] | | | | | | [phone] | | | +--------+ + + + [...]
--- OUTSIDE RECORDS SUMMARY | ~2020-03-10 | XMS | Encounter Summary ---
Demographics + + + | Address | [address] | | | [place] [address] | + + + | Home Phone [...] Author + + + | Author | [facility] | + + + | Organization | [facility] | + + + | Address | Unknown | + + + | Phone | Unavailable | + + + Support + + +---------+ + | Name | Relationship | Address | Phone | + + +---------+ + | Marifer Valentin | ECON | Unknown | | + + +---------+ + Care Team Providers + +------+ + | Care Ext Js Developer Name | Role | Phone | [...] [place] | | | | | ([facility]) | Rd | Center for | | | | | Procedures | [place], [place] | Health and | | | | | CONSULT TO | [address] | Healing, | | | | | BARIATRIC | Phone: | Building 2 | | | | | SURGERY | [phone] | [place], [place] | | | | | | Fax: | [address] | | | | | | [phone] | Phone: | | | | | | | [phone] | | | | | | | Fax: | | | | | | | [phone] | + +--------+ + + + + Encounter Details +--------+---------+ + + + | Date | Type | Department | Care Team | Description | +--------+---------+ + + + | 07/18/ | Office | Digestive Health | Shoshana Paniagua, | Severe obesity (BMI | | 2019 | Visit | [facility] at [facility] [address] | [address] | >= 40) ([facility]) | | | | [facility] | [address] | (Primary Dx) | | | | for Health and | [place], [place] | | | | | [facility] 2 | [address] | | | | | [place], [place] | | | | | | [address] | | | | | | [phone] | | | +--------+---------+ + + + [...] of Visit: 2:00 until 3:01 (61 minutes eksn-ge-aoxj with patient) SUBJECTIVE: Pt comes in alone. [...] Diet pepsi 4pm 4 Prunes 7pm [facility] Grilled chicken salad with [facility] dressing + 20 oz crystal ligh [...] 2 pre-surgery classes. 4. Call or send [employer] message to dietitian with any questions. Contact information was provided. Follow up with dietitian 1-2 weeks after surgery at first post-op visit. Shoshana Paniagua MS, RDN, CSOWM, LD, CDE [facility] Bariatrics [phone] documented in this e ncounter Plan of Treatment Not on filedocumented as of this encounter Procedures + +--------+ + + + | Procedure Name | Priori | Date/Time | Associated Diagnosis | Comments | | | ty | | | | + +--------+ + + + | KS MNT INITIAL | Routin | 07/18/2019 | Severe obesity | | | ASSESSMNT X15MIN | e | 3:03 PM | (BMI >= 40) ([facility]) | | | | | PDT | | | + +--------+ + + + documented in this encounter Visit Diagnoses + + | Diagnosis | + + | Severe obesity (BMI >= 40) (HCC) - Primary Morbid obesity | + + documented in this encounter
--- OUTSIDE RECORDS SUMMARY | ~2020-03-10 | XMS | Encounter Summary ---
Demographics + + + | Address | [address] | | | [place] [address] | + + + | Home Phone | | + + + | Preferred Language | Unknown | + + + | Marital Status | | + + + | Taoism Affiliation | 1027 | + + + | Race | Unknown | + + + | Ethnic Group | Unknown | + + + Author + + + | Author | [facility] | | | and [place] | + + + | Organization | [facility] | | | and [place] [...] Team Providers + +------+ + | Care Special Agent Secret Service Name | Role | Phone | + [...] [place] | | | | | [place] EXC SKIN | | [address] | | | | | [place] | | Phone: | | | | | 2.1-3CM | | [phone] | | | | | TRUNK,ARM,LE | | Fax: | | | | | G VA SPLIT | | [phone] | | | | | GRFT | [...] Event | [facility] [place] | BOOM TRUCK DRIVER [address] | | | | | INTRA [address] | [address] [place] [address] | | | | | [address] | | | | | | [place] | Roc Mcallister, | | | | | | BOOM TRUCK DRIVER 1700 | | | | [...] 0951 | | UPPER BACK BASAL | BOOM TRUCK DRIVER | | | | CELL [...] + + | Periph | 10/07/15; 0821; [id number] | 10/07/15 0821 by | 07/16/18 1411 [...]
--- OUTSIDE RECORDS SUMMARY | ~2020-03-10 | XMS | Encounter Summary ---
Demographics + + + | Address | [address] | | | [place] [address] | + + + | Home Phone [...] [facility] | | | and [place] | + + + | Organization | [facility] | | | and [place] [...] Team Providers + +------+ + | Care Efficiency Engineer Name | Role | Phone | + +------+ + | Marita Albrecht MD | PCP | | + +------+ + Encounter Details +--------+ + + + + | Date | Type | Department | Care Team | Description | +--------+ + + + + | 02/22/ | Hospital | [facility] | Peng Fink MD | | | 2009 | Encounter | [facility] | [address] | | | | | [address] | [address] [employer], | | | | | [place], | [place] [address] | | | | | [place] [address] | | | | | | [phone] | | | +--------+ + + + [...] + + | [place] | [address] [facility] | [place] [address] | [phone] | | CORE LABORATORY (I) | | [...] + + | [place] | [address] [facility] | [place] [address] | [phone] | | CORE LABORATORY (I) | | | | + + + + + | COLETTE FIGUEROA | | | | [place] | | | | + + + + + documented in this encounter Visit Diagnoses Not on filedocumented in this encounter"
--- OUTSIDE RECORDS SUMMARY | ~2020-03-10 | XMS | Encounter Summary ---
Demographics + + + | Address | [address] | | | [place] [address] | + + + | Home Phone [...] Team Providers + +------+ + | Care Fiscal Clerk Name | Role | Phone | + +------+ + PCP | Unavailable | + +------+ + Encounter Details +--------+ + + + + | Date | Type | Department | Care Team | Description | +--------+ + + + + | 11/30/ | Abstract | Digestive Health | Clinic, Surgery | | | 2019 | | [place] [facility] [address] | | | | | | [address] | | | | | | Mailcode: [place] | | | | | | [facility] Health and | | | | | | Healing, Building 2 | | | | | | [place], [place] | | | | | | [address] | | | | | | [phone] | | | +--------+ + + + [...]
--- OUTSIDE RECORDS SUMMARY | ~2020-03-10 | XMS | Encounter Summary ---
Demographics + + + | Address | [address] | | | [place] [address] | + + + | Home Phone | | + + + | Preferred Language | Unknown | + + + | Marital Status | | + + + | Advent Affiliation | 1027 | + + + | Race | Unknown | + + + | Ethnic Group | Unknown | + + + Author + + + | Author | [facility] | | | and [place] | + + + | Organization | [facility] [...] Team Providers + +------+ + | Care Dynamic Balancer Set Up Worker Name | Role | Phone | [...] [place] | | | | | PA EXC SKIN | | [address] | | | | | [place] | | Phone: | | | | | 2.1-3CM | | [phone] | | | | | TRUNK,ARM,LE | | Fax: | | | | | G PA SPLIT | | [phone] | | | | | GRFT | [...] Event | [facility] [place] | STATION SUPERVISOR [address] | | | | | IN[address] | [address] [place] | | | | | [address] | | | | | | [place] | Roc Mcallister, | | | | | | STATION SUPERVISOR [address] | | | | | | [...] [address]951 | | UPPER BACK BASAL | STATION SUPERVISOR | | | | CELL CARCINOMA | [...] + + | Periph | 10/07/15; 0821; [id number]-[id number] | 10/07/15 0821 by | 07/16/18 1411 [...]
--- OUTSIDE RECORDS SUMMARY | ~2020-03-10 | XMS | Encounter Summary ---
Demographics + + + | Address | [address] | | | [place] [address] | + + + | Home Phone [...] [facility] | | | and [place] [...] Team Providers + +------+ + | Care Maintenance Dispatcher Name | Role | Phone | + [...] | | | left upper | | [address] | | | | | extremity, | | Phone: | | | | | including | | [phone] | | | | | shoulder | | Fax: | | | | | Procedures | | [phone] | | | | | MA EXC TUMOR | | | | | | | SOFT TISSUE | | | | | | | UPPER | | | | | | | ARM/ELBOW | | | | | | | SUBQ 3+CM | | | | | | | MA EXC SKIN | | | | | [...] + + | 11/17/ | Hospital | [facility] | Guille Roldan, | Basal cell carcinoma | | 2016 | Encounter | [facility] | MD [address] | of shoulder, left | | | | [facility] [address] | [address] | (Primary Dx); Soft | | | | [address] | [place] | tissue mass | | | | [place] [address] | [address] | | | | | [phone] | [phone] | | | | | | | [...] interact with your prescription medicines or other nsit-uzg-xlihhac (OTC) drugs. Some pr escription medicines have [...] REPORT CASE: | [facility] | | [id number]: Tiff[facility]inoEdge[facility] Hospital[facility] Report [id number]: | | | Tiffanie Valentin Date of [...] mass or lesion | | | isidentified. Spring Fitter Helper sections are submitted as follows: A1 | [...] - centralareas with | | | hemorrhage. ([facility]/[id number]) Dominique Ordaz M.D. | | | Electronically signed 11/20/2015 19:55 Performed at | | | [facility]-[address] [address] | | | CLIA#: [id number] ADDENDUM: #1 FLUORESCENCE IN-SITU HYBRIDIZATION | | | (FISH) STUDIES:Source: Block [id number]: Cells of interest Name | | | [...] | | found to harboramplification of the 81w31-56 region, which includes | | | the [...] is | | | determined and a MDM2/DKQ09ktnyx is calculated for each case. A | [...] 405Extremity-based Tumors. Am J Surg Pathol 2010; 34:2201-2867. | | | Methodology: Fluorescence in situ hybridization (FISH) for MDM2 | | | geneamplification (using MDM2/CEP12 probes and the [employer] | | | Metaferautomated scanning fluorescent microscope) is performed at | | | [place] [address]. Test results should be used in | | | conjunction with other availablelaboratory and clinical information. | | | This test was developed and itsperformance characteristics determined | | | by the Molecular PathologyLaboratory, [facility] | | | Laboratories. It has [...] Cheryl Ortiz MD. | | | Electronically qrjvsi3111/23/2015 16:02 Performed at | | | [facility],[address] [place] [address] [address], [place], | | | [place] [address] CLIA#:[id number]: Unless otherwise | | | specified, a [...] to harbor | | |amplification of the 21m57-42 region, which includes the MDM2 (murine | [...] |Extremity-based Tumors. Am J Surg Pathol 2010; 34:8368-5490. | | | | | |Methodology: Fluorescence in situ hybridization (FISH) for MDM2 gene | | |amplification (using MDM2/CEP12 probes and the [employer] Metafer | | |automated scanning fluorescent microscope) is performed at [facility], | | |[place]. [address]. | | | | | |Test results should be used in conjunction with other available | | |laboratory and clinical information. This test was developed and its | | |performance characteristics determined by the Molecular Pathology | | |Laboratory, [facility]. It has not been [...] signed | | |11/23/2015 16:02 Performed at [facility], | | |[address] [place] [address]#: | | |[id number] | | |Microscopic: Unless otherwise specified, a microscopic exam has been performed. | | | | | |Received Date: 11/17/2015 | | |Collection Date: 11/17/2015 | | |Referring Physician: Guille Roldan MD | | |Additional Physician copies: | | + + -------+ + + + + + | Performing | Address | City/State/[facility] | Phone Number | | Organization | | | | + + + + + | REFERENCE LAB | [address] | [place] [address] | [phone] | | [facility] | [address] | | [...]
--- OUTSIDE RECORDS SUMMARY | ~2020-03-10 | XMS | Encounter Summary ---
Demographics + + + | Address | [address] | | | [place] [address] | + + + | Home Phone [...] Organization | [facility] | | | and [place] [...] Providers + +------+ + | Care Clinical Nurse Name | Role | Phone | + +------+ + | Marita Albrecht MD | PCP | | + +------+ + Encounter Details +--------+ + + + + | Date | Type | Department | Care Team | Description | +--------+ + + + + | 02/22/ | Hospital | [facility] | Peng Fink MD | | | 2009 | Encounter | [facility] | [address] | | | | | [address]IC [address] | [address] [place], | | | | | [place], | [place] [address] | | | | | [place] [address] | | | | | | [phone] | | | +--------+ + + + [...] | | | Protein | | | GEROSN | | + + + + + [...] + + | [place] | [address] [facility] | [place] [address] | [phone] | | CORE LABORATORY (I) | | [...] + + | SERGE[place] INTER[place] | [address] [facility] | [place] [address] | [phone] | | CORE LABORATORY (I) | | | | + + + + + | COLETTE FIGUEROA | | | | [place] | | | | + + + + + documented in this encounter Visit Diagnoses Not on filedocumented in this encounter"
--- OUTSIDE RECORDS SUMMARY | ~2020-03-10 | XMS | Encounter Summary ---
Demographics + + + | Address | [address] | | | [place] [address] | + + + | Home Phone [...] Author + + + | Author | [facility] | + + + | Organization | [facility] | + + + | Address | Unknown | + + + | Phone | Unavailable | + + + Support + + +---------+ + | Name | Relationship | Address | Phone | + + +---------+ + | Marifer Valentin | ECON | Unknown | | + + +---------+ + Care Team Providers + +------+ + | Care Associate Professor Of History Name | Role | Phone | + [...] | | | | | | | [place], [place] | | | | | | | [address] | | | | | | | Phone: | | | | | | | [phone] | | | | | | | Fax: | | | | | | | [phone] | + +--------+ + + + + Encounter Details +--------+---------+ + + + | Date | Type | Department | Care Team | Description | +--------+---------+ + + + | 12/20/ | Office | Digestive Health | Marita Hadley, | Gastroesophageal | | 2020 | Visit | Center at [facility] [address] | MD [address] | reflux disease, | | | | [address] | [place], [place] | esophagitis presence | | | | Mailcode: Center | [address] | not specified | | | | for Health and | [phone] | (Primary Dx); Morbid | | | | [facility] 2 | | obesity with BMI of | | | | [place], [place] | | 45.0-49.9, adult | | | | [address] | | ([facility]) | | | | [phone] | | | +--------+---------+ + + + [...] Name: Tiffanie Valentin : 1950 Medical Record: [id number] ID: Tiffanie Valentin is a 69-year-old female [...] file Gets together: Not on file Attends moravian service: Not on file Active member of club or organization: Not on file Attends meetings of clubs or organizations: Not on file Relationship status: Not on file Other Topics Concern Not on file Social History Narrative 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 Lives at home with daughter an [...] MD [facility] [address] [facility] Mailcode: [place] [address] documented in this encounter Plan of Treatment Not on filedocumented as of this encounter Visit Diagnoses + + | Diagnosis | + + | Gastroesophageal reflux disease, esophagitis presence not specified - Primary | + + | Morbid obesity with BMI of 45.0-49.9, adult ([facility]) | + + documented in this encounter
--- OUTSIDE RECORDS SUMMARY | ~2020-03-10 | XMS | Encounter Summary ---
Demographics + + + | Address | [address] | | | [place] [address] | + + + | Home Phone [...] [facility] | | | [...] Team Providers + +------+ + | Care Tangled Yarn Worker Name | Role | Phone | [...] | [facility] [place] | [address] | | | | | [address] | [address] | | | | | [address] | [address] | | | | | [place] | | | | | | [phone] | | | +--------+ + + + [...] #: | | | | | | [id number] : | | | | | | 1950 | | | | | | | | | | | | Received:07/20/2005 | | | | | | Accession #: | | | | | | [id number] Clinician: | | | | | | [...] SNOMED | | | | | | T-[id number], | | | | | | T-00607, [id number], | | | | | | M-54590, T-[id number] | | | | | | [...] dimensions. | | | | | | Restaurant Shift Leader sections | | | | | | [...] + + | REFERENCE LAB | [address] | [place] [address] | [phone] | | [facility] | [address] | | | + + + + + | [facility] - | [address] [place] [address] NE | [place] [address] | [phone] | | [place] | | | | + + + + + documented in this encounter Visit Diagnoses Not on filedocumented in this encounter
--- OUTSIDE RECORDS SUMMARY | ~2020-03-10 | XMS | Encounter Summary ---
Demographics + + + | Address | [address] | | | [place] [address] | + + + | Home Phone [...] Team Providers + +------+ + | Care Dumbwaiter Operator Name | Role | Phone | [...]
--- OUTSIDE RECORDS SUMMARY | ~2020-03-10 | XMS | Encounter Summary ---
Demographics + + + | Address | [address] | | | [place] [address] | + + + | Home Phone [...] Providers + +------+ + | Care Rubber Belt Splicer Name | Role | Phone | + [...]
[2020-03-10] MEDS ORDERED: OMEPRAZOLE20 MG PO (14:52)
[2020-03-10] MEDS ORDERED: ENALAPRIL MALEA20 MG PO (14:52)
[2020-03-10] MEDS ORDERED: SIMVASTATIN20 MG PO (14:52)
[2020-03-10] MEDS ORDERED: HYDROCHLOROTH12.5 M1 (14:53)
[2020-03-10] MEDS ORDERED: ONDANSETRON ODT8 MG PO (17:37)
[2020-03-10] MEDS ORDERED: PROMETHAZINE HC25 M1 PO (17:37)
== END 2020-03-10 18:57 | disposition home or self-care (01) ==
LOC: ED 14:21
DX: K29.00 Acute gastritis without bleeding (principal); I10 Essential (primary) hypertension; Z87.891 Personal history of nicotine dependence; Z79.899 Other long term (current) drug therapy
CPT/HCPCS: 80053; 85025; 96361; 96374; 96375; 99284-25; J2405; J2550; J7030

== ENCOUNTER 2020-03-12 13:48 | Inpatient (IN) | payer MEDICARE, OTHER ==
[~2020-03-12] VITALS: Ht 167.6 cm; Wt 127.0 kg
--- OUTSIDE RECORDS SUMMARY | ~2020-03-12 | XMS | Encounter Summary ---
Demographics + + + | Address | [address] | | | [place] [address] | + + + | Home Phone | | + + + | Preferred Language | Unknown | + + + | Marital Status | | + + + | Caodaism Affiliation | 1027 | + + + | Race | Unknown | + + + | Ethnic Group | Unknown | + + + Author + + + | Author | [facility] | | | and [place] | + + + | Organization | [facility] | | | and [place] | + + + | Address | Unknown | + + + | Phone | Unavailable | + + + Support + + +---------+ + | Name | Relationship | Address | Phone | + + +---------+ + | Marifer Valenitn | ECON | Unknown | | + + +---------+ + Care Team Providers + +------+ + | Care Can Filling Room Sweeper Name | Role | Phone | + +------+ + | Peng Fink MD | PCP | | + +------+ + Encounter Details +--------+ + + + + | Date | Type | Department | Care Team | Description | +--------+ + + + + | 09/22/ | Hospital | [facility] | Trey Morrell MD | | | 2006 | Encounter | [facility] | [address] [facility] | | | | | [address] | [address] | | | | | [place], | [place] [address] | | | | | [place] [address] | [phone] | | | | | [phone] | | | +--------+ + + + + Social History + +-------+ +--------+------+ | Tobacco Use | Types | Packs/Day | Years | Date | | | | | Used | | + +-------+ +--------+------+ | Never Assessed | | | | | + +-------+ +--------+------+ + + + | Sex Assigned at [...]
--- OUTSIDE RECORDS SUMMARY | ~2020-03-12 | XMS | Encounter Summary ---
Demographics + + + | Address | [address] | | | [place] [address] | + + + | Home Phone | | + + + | Preferred Language | Unknown | + + + | Marital Status | | + + + | Tenriism Affiliation | 1027 | + + + | Race | Unknown | + + + | Ethnic Group | Unknown | + + + Author + + + | Author | [facility] | | | and [place] | + + + | Organization | [facility] | | | and [place] [...] Team Providers + +------+ + | Care Phytopathologist Name | Role | Phone | + +------+ + | Peng Fink MD | PCP | | + +------+ + Reason for Visit Auth/Cert +--------+--------+ + + + + | Status | Reason | Specialty | Diagnoses / | Referred By | Referred To | | | | | Procedures | Contact | Contact | +--------+--------+ + + + + | | | | Diagnoses | | Jamar, | | | | | Mass of | | Guille Carolina MD | | | | | soft tissue | | [address] | | | | | Basal cell | | [address] | | | | | carcinoma of | | [address] | | | | | skin of | | [place] | | | | | left upper | | [address] | | | | | extremity, | | Phone: | | | | | including | | [phone] | | | | | shoulder | | Fax: | | | | | Procedures | | [phone] | | | | | IN EXC TUMOR | | | | | | | SOFT TISSUE | | | | | | | UPPER | | | | | | | ARM/ELBOW | | | | | | | SUBQ 3+CM | | | | | | | IN EXC SKIN | | | | | | | MALIG >4CM | | | | | | | TRUNK,ARM,LE | | | | | | | G | | | +--------+--------+ + + + + Encounter Details +--------+---------+ + + + | Date | Type | Department | Care Team | Description | +--------+---------+ + + + | 11/17/ | Surgery | SERGEY | Guille Roldan, | LEFT UPPER EXTREMITY | | 2015 | | [facility] | [address] | LIPOMA EXCISION, | | | | [address] | [address] | LEFT BASAL CELL | | | | [address] | [place] | CARCINOMA EXCISION | | | | [place] | | | | | | [phone] | [phone] | | | | | | | | +--------+---------+ + + + Social History + + + +--------+ + | Tobacco Use | Types | Packs/Day | Years | Date | | | | | Used | | + + + +--------+ + | Former Smoker | Cigarettes | | 20 | Quit: 12/30/2007 | + + + +--------+ + + +---+---+---+ | Smokeless Tobacco: | | | | | Never Used | | | | + +---+---+---+ + + +---------+ + | Alcohol Use | Drinks/Week | oz/Week | Comments | + + +---------+ + | No | | | | + + +---------+ + + + + | Sex Assigned [...] + + documented as of this encounter Last Filed Vital Signs + + + + + | Vital Sign | Reading | Time Taken | Comments | + + + + + | Blood Pressure | 142/77 | 11/17/2015 1:33 PM | | | | | PST | | + + + + + | Pulse | 90 | 11/17/2015 1:33 PM | | | | | PST | | + + + + + | Temperature | 2.4 C (36.3 F) | 11/17/2015 1:33 PM | | | | | PST | | + + + + + | Respiratory Rate | 16 | 11/17/2015 1:33 PM | | | | | PST | | + + + + + | Oxygen Saturation | 95% | 11/17/2015 2:00 PM | | | | | PST | | + + + + + | Inhaled Oxygen | - | - | | | Concentration | | | | + + + + + | Weight | 143 kg (315 lb 4.1 | 11/17/2015 9:50 AM | | | | oz) | PST | | + + + + + | Height | 160 cm (5' 2.99") | 11/17/2015 9:50 AM | | | | | PST | | + + + + + | Body Mass Index | 55.86 | 11/17/2015 9:50 AM | | | | | PST | | + + + + + documented in this encounter Discharge Instructions Instructions Santa Quinteros - 11/17/2015POST-OPERATIVE INSTRUCTIONS Activity: Rest today. Gradually return to normal activities. Diet: Clear liquids until nausea passes, then return to normal diet as tolerated. Pain and Comfort: Use pain medication as prescribed Use anti-nausea medication prescribed if needed Use benadryl/diphenhydramine if you are itchy Use an ice pack as needed, 15-20 minutes at a time Dressing: You dolly closing your incision. You may shower over in 48 hours. You may take your a ce wrap off at that time. You do not need to re-apply it, unless you want to do so for comf ort. Please measure the output of your drain twice per day Call if your drain is clogged or if output is less than 30 ml per day x 2 days Follow up: Please call the office at the number listed below to confirm a follow up appointment Call if: Elevated fever over 101F especially if associated with sweats, chills and/or body ache s. Increasing redness around or drainage from your incision. Pain that is not tolerable despite taking your medications as discussed. See Pain sectio n above. Frequent nausea/vomiting especially if you are unable to keep fluids down. If you are unable to reach your doctor at the above number, call our answering service at . Discharge Instructions: After Your Surgery You ve just had surgery. During surgery you were given medicine called anesthesia to keep you relaxed and free of pain. After surgery you may have some pain or nausea. This is commo n. Here are some tips for feeling better and getting well after surgery. Going home Your doctor or nurse will show you how to take care of yourself when you go home. He or she will also answer your questions. Have an adult family member or friend drive you home. For the first 24 hours after your surgery: Do not drive or use heavy equipment. Do not make important decisions or sign legal papers. Do not drink alcohol. Have someone stay with you, if needed. He or she can watch for problems and help keep yo u safe. Be sure to go to all follow-up visits with your doctor. And rest after your surgery for as long as your doctor tells you to. Coping with pain If you have pain after surgery, pain medicine will help you feel better. Take it as told, b efore pain becomes severe. Also, ask your doctor or pharmacist about other ways to control p ain. This might be with heat, ice, or relaxation. And follow any other instructions your griselda geon or nurse gives you. Tips for taking pain medicine To get the best relief possible, remember these points: Pain medicines can upset your stomach. Taking them with a little food may help. Most pain relievers taken by mouth need at least 20 to 30 minutes to start to work. Taking medicine on a schedule can help you remember to take it. Try to time your medicin e so that you can take it before starting an activity. This might be before you get dressed, go for a walk, or sit down for dinner. Constipation is a common side effect of pain medicines. Call your doctor before taking a ny medicines such as laxatives or stool softeners to help ease constipation. Also ask if you should skip any foods. Drinkinglots of fluids andeating foodssuch as fruits and veget ele that are high in fiber can also help. Remember, do not take laxatives unless your surg tresa has prescribed them. Drinking alcohol and taking pain medicine can cause dizziness and slow your breathing. I t can even be deadly. Do not drink alcohol while taking pain medicine. Pain medicine can make you react more slowly to things. Do not drive or run machinery wh ile taking pain medicine. Your health care providermay tell you to take acetaminophen to help ease your pain. Ask h im or her how much you are supposed to take each day. Acetaminophen or other pain relievers may interact with your prescription medicines or other hpqc-vrg-gfoalre (OTC) drugs. Some pr escription medicines have acetaminophen and other ingredients.Using both prescription and OTC acetaminophenfor paincan cause you to overdose. Readthe labels on your OTC medicin eswith care. This will help youto clearly know the list of ingredients, how much to take , and anywarnings. It may also help you not take too muchacetaminophen.If you have que stions or do not understand the information, ask your pharmacist or health care provider to explain it to you before you take the OTC medicine. Managing nausea Some people have an upset stomach after surgery. This is often because of anesthesia, pain, or pain medicine, or the stress of surgery. These tips will help you handle nausea and eat healthy foods as you get better. If you were on a special food plan before surgery, ask your doctor if you should follow it while you get better. These tips may help: Do not push yourself to eat. Your body will tell you when to eat and how much. Start off with clear liquids and soup. They are easier to digest. Next try semi-solid foods, such as mashed potatoes, applesauce, and gelatin, as you feel ready. Slowly move to solid foods. Don t eat fatty, rich, or spicy foods at first. Do not force yourself to have 3 large meals a day. Instead eat smaller amounts more ofte n. Take pain medicines with a small amount of solid food, such as crackers or toast, to nu id nausea. If you have obstructive sleep apnea You were given anesthesia medicine during surgery to keep you comfortable and free of pain. After surgery, you may have more apnea spells because of this medicine and other medicines you were given. The spells may last longer than usual. At home: Keep using the continuous positive airway pressure (CPAP) device when you sleep. Unless your health care provider tells you not to, use it when you sleep, day or night. CPAP is a c ommon device used to treat obstructive sleep apnea. Talk with your provider before taking any pain medicine, muscle relaxants, or sedatives. Your provider will tell you about the possible dangers of taking these medicines. NEXT DOSE OF PAIN MEDICATION MAY BE TAKEN AT 3:30PM documented in this encounter Medications at Time of Discharge + + + +---------+ + + | Medication | Sig | Dispensed | Refills | Start | End Date | | | | | | Date | | + + + +---------+ + + | aspirin 81 mg EC | Take 81 mg by mouth | | 0 | | | | tablet | nightly. | | | | | + + + +---------+ + + | enalapril | Take 20 mg by mouth | | 0 | | | | (VASOTEC) 20 MG | 2 times daily. | | | | | | tablet | | | | | | + + + +---------+ + + | fluticasone | 2 sprays by Each | | 0 | | | | (FLONASE) 50 | Nare route every | | | | | | mcg/nasal spray | morning. | | | | | + + + +---------+ + + | | Take 12.5 mg by | | 0 | | | | hydrochlorothiazide | mouth every morning. | | | | | | (HYDRODIURIL) 12.5 | | | | | | | MG tablet | | | | | | + + + +---------+ + + | omeprazole | Take 20 mg by mouth | | 0 | | | | (PRILOSEC) 20 mg | every morning | | | | | | capsule | (before breakfast). | | | | | + + + +---------+ + + | simvastatin | Take 20 mg by mouth | | 0 | | | | (ZOCOR) 20 mg tablet | nightly. | | | | | + + + +---------+ + + | venlafaxine | Take 75 mg by mouth | | 0 | | | | (EFFEXOR) 75 MG | every morning. | | | | | | tablet | | | | | | + + + +---------+ + + | | Take 1-2 tablets by | 40 | 0 | 11/17/19 | | | HYDROcodone-acetamin | mouth every 6 hours | tablet | | 16 | 8 | | ophen (NORCO) 5-325 | as needed for Pain. | | | | | | mg per tablet | | | | | | + + + +---------+ + + | naproxen sodium | Take 220 mg by mouth | | 0 | | | | (ALEVE) 220 MG | as needed. | | | | 8 | | tablet | | | | | | + + + +---------+ + + | ondansetron | Take 1 tablet by | 24 | 0 | 11/17/19 | | | (ZOFRAN ODT) 4 mg | mouth every 8 hours | tablet | | 16 | 6 | | disintegrating | as needed for Nausea | | | | | | tablet | for up to 7 days. | | | | | + + + +---------+ + + documented as of this encounter Plan of Treatment Not on filedocumented as of this encounter Procedures + +--------+ + + + | Procedure Name | Priori | Date/Time | Associated Diagnosis | Comments | | | ty | | | | + +--------+ + + + | EXCISION LESION | | 11/17/2015 | Mass of soft | | | MULTIPLE | | 10:22 AM | tissue Basal cell | | | | | PST | carcinoma of skin of | | | | | | left upper | | | | | | extremity, including | | | | | | shoulder | | + +--------+ + + + +---+--------+ | | | | | Specia | | | l | | | Needs | | | | | | PMG-PA | | | , WT | | | 313, | | | SLEEP | | | APNEA; | | | call | | | pt at | | | work | | | [phone] | | | [phone] | | | with | | | OR | | | time | +---+--------+ + +--------+ +---+ + | SURGICAL PATHOLOGY | Routin | 11/17/2015 | | Results for this | | EXAM | e | 12:00 AM | | procedure are in the | | | | PST | | results section. | + +--------+ +---+ + documented in this encounter Results Surgical Pathology Exam (11/17/2015 12:00 AM PST) + + | Specimen | + + | Soft tissue sample | | (specimen) | + + + + -------+ | Narrative | Performed At | + + -------+ | Gender: FAge: | [facility] | | 65Date of : 1950 THIS IS AN ADDENDUM REPORT CASE: | [facility] | | [id number]: Tiffanie Leighathology Report [id number]: | | | Tiffanie Valentin Date of : 1Provider: Guille | | | Ge Roldan MD Received: 11/17/2015Addendum #1: FISH | | | ResultsFINAL DIAGNOSIS: A: Skin and subcutaneous tissue, left upper | | | arm, excision:Few microscopic foci of basal cell carcinoma, | | | superficial and focalinfiltrative type, 0.8 mm deep (Nelson's anatomic | | | level 3); inked marginsnegative for carcinoma (clearance: at least 7 | | | mm).Changes consistent with prior biopsy site.Lentigo.Intradermal | | | melanocytic nevus.Seborrheic keratosis. B: Soft tissue, left upper arm | | | mass, excision:Partially encapsulated mature adipose tissue with fat | | | necrosissuggestive of low grade neoplasm of adipose tissue. MDM-2 FISH | | | study toexclude atypical lipomatous tumor pending; report will be | | | updated in anaddendum. CLINICAL INFORMATION:Mass of soft tissue, | | | basal cell carcinoma of skin of left upperextremity including | | | shoulder. ICD10 code(s): M79.9, C44.619 GROSS DESCRIPTION:A. | | | Received fresh, labeled "Tiffanie Valentin", "A. Left upper armbasal | | | cell carcinoma re-excision", is an oriented skin excision with ashort | | | suture designating superior and a long suture designatingposterior. | | | It has dimensions as follows: 23 cm from superior toinferior, 6.2 cm | | | anterior to posterior and 3 cm superficial to deep. Itis inked as | | | follows: superior to posterior - orange, posterior toinferior - blue | | | and anterior half - black. There is a 0.8 x 0.6 cmslightly raised, | | | well-healed scar, 4.6 cm from the superior margin, 1.1cm from the | | | anterior margin, 1.8 cm from the posterior margin and 17.7cm from the | | | inferior margin. Additionally, there is a 0.5 x 0.4 x 0.1cm raised | | | sahni lesion, 0.9 cm from the posterior margin, 8.8 cm from theinferior | | | margin, 12.8 cm from the superior margin and 3.3 cm from theanterior | | | margin. It is sectioned from superior to inferior into fortyone | | | slices, numbered respectively. The well-healed scar is withinslices | | | 12-15, is contained to the epidermis, 4 cm from the deep margin.The | | | raised lesion is within slice 24, is contained to the epidermis, 1.3cm | | | from the deep margin. No other discrete mass or lesion | | | isidentified. Case Liner sections are submitted as follows: A1 | | | -slice 5; A2-A17 - slices 12-15, entire well-healed scar (every | | | fourblock representing one composite section); A18-A20 - composite | | | slice 24with raised lesion in A18; A21 - slice 28.B. Received | | | fresh, labeled "Tifafnie Valentin", "B. Left upper armsoft tissue | | | mass", is a soft tissue mass excision with a short suturedesignating | | | superior and a long suture designating left. It hasdimensions as | | | follows: 21 cm anterior to posterior, 10.5 cm superior toinferior and | | | 10 cm left to right. It is inked as follows: anterior -blue, deep - | | | black, superior - orange, inferior - green, left - yellowand right - | | | red. The cut surface is sahni-yellow, glistening andlobulated with | | | focal areas of firm, white tissue and scatteredhemorrhage. No areas | | | of necrosis are identified. Representativesections are submitted as | | | follows: B1-B2 - tissue with deep margin; B3 -tissue to left margin; | | | B4-B5 - tissue with inferior margin; B6 - areasof firm white tissue to | | | superior margin; B7-B8 - firm white areas toright margin; B9-B10 - | | | soft tissue to anterior margin; B11-B12 - centralareas with | | | hemorrhage. ([id number]) Dominique Ordaz M.D. | | | Electronically signed 11/20/2015 19:55 Performed at | | | [facility], [facility] [place] [address] | | | CLIA#: [id number] ADDENDUM: #1 FLUORESCENCE IN-SITU HYBRIDIZATION | | | (FISH) STUDIES:Source: Block [id number]: Cells of interest Name | | | Score ResultFISH MDM2 1.83CEP-12 1.83# of Nuclei scored | | | 40FISH Estimated Ratio 1 Negative for Amplification. | | | Interpretation: Mature adipose tissue, NEGATIVE for MDM2 | | | geneamplification.Interpreted by: Cheryl Ortiz MD Comment: | | | Several studies have shown that molecular analysis refines | | | theclassification of lipomatous tumors and is useful to | | | discriminatelipomas from atypical lipomatous tumor/well-differentiated | | | liposarcoma(ALT/WDL). Well-differentiated liposarcomas have been | | | found to harboramplification of the 52g92-97 region, which includes | | | the MDM2 (murinedouble minute 2) gene. In contrast, benign lipomas and | | | benign lipocytictumors as well as most other non-lipomatous sarcomas | | | have been shown sophia negative for MDM2 amplification. Detection of | | | MDM2 amplification byFISH has been shown to be both very sensitive and | | | specific for thedistinction of various well-differentiated | | | liposarcoma subtypes; theaverage number of MDM2 and CEP12 signals is | | | determined and a MDM2/JRW69xojgr is calculated for each case. A | | | ratio?2.0 is considered amplifiedfor the MDM2 gene, whereas a ratio | | | <2.0 is considered nonamplified. References:1. Javier et al. | | | Fluorescence in situ hybridization for MDM2 geneamplification as a | | | diagnostic tool in lipomatous neoplasms. ModernPathology (2008) 21, | | | [phone]. Cassius et al. Molecular Testing for Lipomatous Tumors: | | | CriticalAnalysis and Test Recommendations Based on the Analysis of | | | 405Extremity-based Tumors. Am J Surg Pathol 2010; 34:0454-8129. | | | Methodology: Fluorescence in situ hybridization (FISH) for MDM2 | | | geneamplification (using MDM2/CEP12 probes and the [employer] | | | Metaferautomated scanning fluorescent microscope) is performed at | | | [place] [address]. Test results should be used in | | | conjunction with other availablelaboratory and clinical information. | | | This test was developed and itsperformance characteristics determined | | | by the Molecular PathologyLaboratory, [facility] | | | Laboratories. It has not been approvedby the U.S. Food and Drug | | | Administration. The FDA has determined thatsuch clearance or approval | | | is not necessary. This test is for clinicalpurposes. It should not be | | | regarded as investigational or for research.This laboratory is | | | regulated under the 1988 CLIA amendments as qualifiedto perform | | | high-complexity clinical testing. FISH Image(s) B10-2: | | | B10-2: B10-2: Addendum #1 performed by Cheryl Ortiz MD. | | | Electronically rvugpl3211/23/2015 16:02 Performed at | | | [facility],[address] [place] [address], [place], | | | [place] [address] CLIA#:[id number]: Unless otherwise | | | specified, a microscopic exam has been performed. Received Date: | | | 01/26/2016Collection Date: 11/17/2015Referring Physician: Jamar IRVIN, | | | [facility] Physician copies: | | | | | | | | | | | |Several studies have shown that molecular analysis refines the | | |classification of lipomatous tumors and is useful to discriminate | | |lipomas from atypical lipomatous tumor/well-differentiated liposarcoma | | |(ALT/WDL). Well-differentiated liposarcomas have been found to harbor | | |amplification of the 95d82-74 region, which includes the MDM2 (murine | | |double minute 2) gene. In contrast, benign lipomas and benign lipocytic | | |tumors as well as most other non-lipomatous sarcomas have been shown to | | |be negative for MDM2 amplification. Detection of MDM2 amplification by | | |FISH has been shown to be both very sensitive and specific for the | | |distinction of various well-differentiated liposarcoma subtypes; the | | |average number of MDM2 and CEP12 signals is determined and a MDM2/CEP12 | | |ratio is calculated for each case. A ratio?2.0 is considered amplified | | |for the MDM2 gene, whereas a ratio <2.0 is considered nonamplified. | | | | | |References: | | |1. Herrera et al. Fluorescence in situ hybridization for MDM2 gene | | |amplification as a diagnostic tool in lipomatous neoplasms. Modern | | |Pathology (2008) 21, 943949. | | |2. Cassius et al. Molecular Testing for Lipomatous Tumors: Critical | | |Analysis and Test Recommendations Based on the Analysis of 405 | | |Extremity-based Tumors. Am J Surg Pathol 2010; 34:1322-0838. | | | | | |Methodology: Fluorescence in situ hybridization (FISH) for MDM2 gene | | |amplification (using MDM2/CEP12 probes and the [employer] Metafer | | |automated scanning fluorescent microscope) is performed at [facility], | | |[place]. [address]. | | | | | |Test results should be used in conjunction with other available | | |laboratory and clinical information. This test was developed and its | | |performance characteristics determined by the Molecular Pathology | | |Laboratory, [facility]. It has not been approved | | |by the U.S. Food and Drug Administration. The FDA has determined that | | |such clearance or approval is not necessary. This test is for clinical | | |purposes. It should not be regarded as investigational or for research. | | |This laboratory is regulated under the 1988 CLIA amendments as qualified | | |to perform high-complexity clinical testing. | | | | | | | | | | | | | | |FISH Image(s) | | | B10-2: B10-2: B10-2: | | | | | | | | | | | | Addendum #1 performed by Cheryl Ortiz MD. Electronically signed | | |11/23/2015 16:02 Performed at [facility], | | |[facility] [address]IA#: | | |[id number] | | |Microscopic: Unless otherwise specified, a microscopic exam has been performed. | | | | | |Received Date: 11/17/2015 | | |Collection Date: 11/17/2015 | | |Referring Physician: Jamar IRVIN, Guille Carolina | | |Additional Physician copies: | | + + -------+ + + + + + | Performing | Address | City/State[facility] | Phone Number | | Organization | | | | + + + + + | REFERENCE LAB | [address] | [place] [address] | [phone] | | [facility] | [address] | | | + + + + + documented in this encounter Visit Diagnoses + + | Diagnosis | + + | Mass of soft tissue Disorders of soft tissue, unspecified | + + | Basal cell carcinoma of skin of left upper extremity, including shoulder | + + documented in this encounter Administered Medications + +--------+ +--------+------+------+ | Medication Order | MAR | Action | Dose | Rate | Site | | | Action | Date | | | | + +--------+ +--------+------+------+ | acetaminophen (TYLENOL) 160 | Given | 11/17/19 | 650 mg | | | | mg/5 mL liquid 640 mg 640 mg, | | 16 12:28 | | | | | Oral, ONCE PRN, Pain, Starting | | PM PST | | | | | 11/17/15 at 1201, For 1 dose, | | | | | | | Recovery/Phase I | | | | | | + +--------+ +--------+------+------+ +---+---+ | | | +---+---+ + +-------+ +--------+---+ + | bupivacaine 0.25%-epi 1:200,000 | Given | 11/17/19 | 30 mLs | | Surgical | | 30 mL with lidocaine 1% 30 mL | | 16 11:42 | | | Site | | injection PRN, Starting Tue | | AM PST | | | | | 11/17/15 at 1142, Intra-op | | | | | | + +-------+ +--------+---+ + +---+---+ | | | +---+---+ + +---------+ +---+ +---+ | lactated ringers (LR) infusion | New Bag | 11/17/19 | | 50 mL/hr | | | at 50 mL/hr, Intravenous, | | 16 10:00 | | | | | CONTINUOUS, Starting 11/17/15 | | AM PST | | | | | at 1000, Pre-op | | | | | | + +---------+ +---+ +---+ +---+---+ | | | +---+---+ + +-------+ +---------+---+ + | lidocaine 1% injection 0.5 mL | Given | 11/17/19 | 0.5 mLs | | Hand-Rig | | 0.5 mL, Intradermal, ONCE, e | | 16 10:00 | | | ht | | 11/17/15 at 1000, For 1 dose, | | AM PST | | | | | Pre-op | | | | | | + +-------+ +---------+---+ + +---+---+ | | | +---+---+ + +-------+ +------+---+---+ | ondansetron (ZOFRAN ODT) | Given | 11/17/19 | 4 mg | | | | disintegrating tablet 4 mg 4 mg, | | 16 1:17 | | | | | Oral, EVERY 6 HOURS PRN, Nausea, | | PM PST | | | | | Vomiting, Starting 11/17/15 | | | | | | | at 1221, First line agent, | | | | | | | Post-op/Phase II | | | | | | + +-------+ +------+---+---+ +---+---+ | | | +---+---+ + +-------+ +------+---+---+ | oxyCODONE (ROXICODONE) 1 mg/mL | Given | 11/17/19 | 5 mg | | | | liquid 5-10 mg 5-10 mg, Oral, | | 16 12:29 | | | | | EVERY 4 HOURS PRN, Pain, Starting | | PM PST | | | | | 11/17/15 at 1201, | | | | | | | Recovery/Phase I | | | | | | + +-------+ +------+---+---+ +---+---+ | | | +---+---+ documented in this encounter
--- OUTSIDE RECORDS SUMMARY | ~2020-03-12 | XMS | Encounter Summary ---
Demographics + + + | Address | [address] | | | [place] [address] | + + + | Home Phone | | + + + | Preferred Language | Unknown | + + + | Marital Status | | + + + | Yarsani Affiliation | 1027 | + + + | Race | Unknown | + + + | Ethnic Group | Unknown | + + + Author + + + | Author | [facility] | | | and [place] | + + + | Organization | [facility] | | | and [place] | [...] Team Providers + +------+ + | Care Algebra Tutor Name | Role | Phone | + [...] | [facility] | [address] | | | | | [address] | [address] | | | | | [place], | [place] [address] | | | | | [place] [address] | [phone] | | | | | [phone] | | | +--------+ + + + [...]
--- OUTSIDE RECORDS SUMMARY | ~2020-03-12 | XMS | Encounter Summary ---
Demographics + + + | Address | [address] | | | [place] [address] | + + + | Home Phone | | + + + | Preferred Language | Unknown | + + + | Marital Status | Single | + + + | Nondenominational Affiliation | Unknown | + + + | Race | White | + + + | Ethnic Group | Not or | + + + Author + + + | Author | [facility] | + + + | Organization | [facility] | + + + | Address | Unknown | + + + | Phone | Unavailable | + + + Support + + +---------+ + | Name | Relationship | Address | Phone | + + +---------+ + | Marifer Valentin | ECON | Unknown | | + + +---------+ + Care Team Providers + +------+ + | Care Edging Machine Catcher Name | Role | Phone | + +------+ + | Stephanie Washington | PCP | | + +------+ + Encounter Details +--------+ + + + + | Date | Type | Department | Care Team | Description | +--------+ + + + + | 07/08/ | Documentati | Digestive Health | Clinic, Surgery | | | 2019 | on | Center at [facility] [address] | | | | | | [address] | | | | | | Mailcode: [place] | | | | | | [facility] and | | | | | | Healing, [address] | | | | | | [place], [place] | | | | | | [address] | | | | | | [phone] | | | +--------+ + + + [...]
--- OUTSIDE RECORDS SUMMARY | ~2020-03-12 | XMS | Encounter Summary ---
Demographics + + + | Address | [address] | | | [place] [address] | + + + | Home Phone | | + + + | Preferred Language | Unknown | + + + | Marital Status | | + + + | Pentecostalism Affiliation | 1027 | + + + | Race | Unknown | + + + | Ethnic Group | Unknown | + + + Author + + + | Author | [facility] | | | and [place] | + + + | Organization | [facility] | | | and [place] [...] Team Providers + +------+ + | Care Chainer Name | Role | Phone | + +------+ + | Peng Fink MD | PCP | | + +------+ + Encounter Details +--------+ + + + + | Date | Type | Department | Care Team | Description | +--------+ + + + + | 07/16/ | [facility] | [facility] | Ezra Green MD | | | 2018 | Encounter | MED CTR MP INTRA OP | [address] | | | | | [address] | [place], [place] | | | | | [place], [place] | [address] | | | | | [address] | [phone] | | | | | [phone] | | | +--------+ + + + [...] + + + | Blood Pressure | 129/75 | 07/16/2018 4:30 PM | | | | | PDT | | + + + + + | Pulse | 76 | 07/16/2018 4:30 PM | | | | | PDT | | + + + + + | Temperature | 36.3 C (97.3 F) | 07/16/2018 4:05 PM | | | | | PDT | | + + + + + | Respiratory Rate | 12 | 07/16/2018 4:30 PM | | | | | PDT | | + + + + + | Oxygen Saturation | 100% | 07/16/2018 4:30 PM | | | | | PDT | | + + + + + | Inhaled Oxygen | - | - | | | Concentration | | | | + + + + + | Weight | 137.5 kg (303 lb 2.1 | 07/16/2018 1:51 PM | | | | oz) | PDT | | + + + + + | Height | 165.1 cm (5' 5") | 07/16/2018 1:51 PM | | | | | PDT | | + + + + + | Body Mass Index | 50.44 | 07/16/2018 1:51 PM | | | | | PDT | | + + + + + documented in this encounter Discharge Instructions Instructions Radha Langley RN - 07/16/2018 Recovery After Procedural Sedation (Adult) You have been given medicine by vein to make you sleep during your procedure. This may have included both a pain medicine and sleeping medicine. Most of the effects have worn off. But you may still have some drowsiness for the next 6 to 8 hours. Home care Follow these guidelines when you get home: For the next 8 hours, you should be watched by a responsible adult. This person should m lisseth sure your condition is not getting worse. Don't drink any alcoholfor the next [address], operate dangerous machinery,make important business or personal decisions , or sign legal documentsduring the next 24 hours. Note: Your healthcare provider may tell you not to take any medicine by mouth for pain or s leep in the next 4 hours. These medicines may react with the medicines you were given in the hospital. This could cause a much stronger response than usual. Follow-up care Follow up with your healthcare provider if you are not alert and back to your usual level o f activity within 12 hours. When to seek medical advice Call your healthcare provider right away if any of these occur: Drowsiness gets worse Weakness or dizziness gets worse Repeated vomiting You can't be awakened Date Last Reviewed: 08/09/201619990878-1005 [employer]. [address] [place] [address], [place] [address]. All righ ts reserved. This information is not intended as a substitute for professional medical care. Always follow your healthcare professional's instructions. documented in this encounter Medications at Time of Discharge + + + +---------+--------+ + | Medication | Sig | Dispensed | Refills | Start | End Date | | | | | | Date | | + + + +---------+--------+ + | aspirin 81 mg EC | Take 81 mg by mouth | | 0 | | | | tablet | nightly. | | | | | + + + +---------+--------+ + | cholecalciferol | Take 1,000 Units by | | 0 | | | | (VITAMIN D-3) 1000 | mouth Daily. | | | | | | units TABS | | | | | | + + + +---------+--------+ + | enalapril | Take 20 mg by mouth | | 0 | | | | (VASOTEC) 20 MG | 2 times daily. | | | | | | tablet | | | | | | + + + +---------+--------+ + | fluticasone | 2 sprays by Each | | 0 | | | | (FLONASE) 50 | Nare route every | | | | | | mcg/nasal spray | morning. | | | | | + + + +---------+--------+ + | | Take 12.5 mg by | | 0 | | | | hydrochlorothiazide | mouth every morning. | | | | | | (HYDRODIURIL) 12.5 | | | | | | | MG tablet | | | | | | + + + +---------+--------+ + | omeprazole | Take 20 mg by mouth | | 0 | | | | (PRILOSEC) 20 mg | every morning | | | | | | capsule | (before breakfast). | | | | | + + + +---------+--------+ + | simvastatin | Take 20 mg by mouth | | 0 | | | | (ZOCOR) 20 mg tablet | nightly. | | | | | + + + +---------+--------+ + | venlafaxine | Take 75 mg by mouth | | 0 | | | | (EFFEXOR) 75 MG | every morning. | | | | | | tablet | | | | | | + + + +---------+--------+ + documented as of this encounter Plan of Treatment Not on filedocumented as of this encounter Procedures + +--------+ + + + | Procedure Name | Priori | Date/Time | Associated Diagnosis | Comments | | | ty | | | | + +--------+ + + + | COLONOSCOPY | | 07/16/2018 | D64.9 | | | | | 3:31 PM | | | | | | PDT | | | + +--------+ + + + | EGD | | 07/16/2018 | D64.9 | | | | | 3:31 PM | | | | | | PDT | | | + +--------+ + + + | SURGICAL PATHOLOGY | Routin | 07/16/2018 | | Results for this | | EXAM | e | 12:00 AM | | procedure are in the | | | | PDT | | results section. | + +--------+ + + + documented in this encounter Results Surgical Pathology Exam (07/16/2018 12:00 AM PDT) + + | Specimen | + + | | + + + + + | Narrative | Performed At | + + + | SPECIMEN(S): A DUODENAL SPECIMEN(S): B GASTRIC SPECIMEN(S): C | [facility] | | DISTAL ESOPHAGEAL SPECIMEN SOURCE: A. DUODENAL B. GASTRIC C. | [facility] | | DISTAL ESOPHAGEAL CLINICAL HISTORY: EGD/colonoscopy. D64.9 | | | (anemia, unspecified). MICROSCOPIC DESCRIPTION: Histologic | | | sections of all submitted blocks are examined by light microscopy. | | | These findings, together with the gross examination, support the | | | pathologic diagnosis. FINAL PATHOLOGIC DIAGNOSIS: A. Duodenum, | | | biopsy: - Normal duodenal mucosa. - Negative for inflammation, | | | parasites, or celiac sprue. B. Stomach, biopsy: - Benign | | | gastric body-type mucosa with patchy vascular congestion. - Slight | | | fundic gland dilatation suggestive of proton pump inhibitor effect. - | | | Negative for inflammation, atrophy, intestinal metaplasia or | | | dysplasia. - Negative for Helicobacter pylori with HE stain. C. | | | Esophagus, distal, biopsy: - Mildly active chronic esophagitis | | | involving squamocolumnar junction. - Negative for Beckwith's goblet | | | cell metaplasia or dysplasia. [facility]:smn:[id number] GROSS DESCRIPTION: | | | A. The specimen, received in formalin, labeled "Chelsey Valentin," | | | further designated "duodenal biopsy," consists of two sahni-brown, | | | granular tissue fragments averaging 0.3 cm. Submitted in cassette | | | (A1). B. The specimen, received in formalin, labeled "Homero, | | | B.," further designated "gastric biopsy," consists of three sahni tissue | | | fragments averaging 0.2 cm. Submitted in cassette (B1). C. | | | The specimen, received in formalin, labeled "Trinity Valentin," further | | | designated "distal esophagus biopsy," consists of two sahni-sood | | | tissues, both 0.3 cm. Submitted in cassette (C1). tn:DALTON:annika | | | PERFORMING LABORATORY: The technical component and professional | | | interpretation were performed by [facility], [address] | | | [place] [address] ([employer]: Jonatan Johns | | | Jareth Hamilton; IA#: [id number]). Diagnostician: Rene Rothman | | | Glenis IRVIN Pathologist Electronically Signed 07/18/2018 | | + + + + +---------+ + + | Performing | Address | City/State/Zipcode | Phone Number | | Organization | | | | + +---------+ + + | [facility] | | | | | [facility] | | | | + +---------+ + + documented in this encounter Visit Diagnoses Not on filedocumented in this encounter Administered Medications + +--------+---------+------+------+------+ | Medication Order | MAR | Action | Dose | Rate | Site | | | Action | Date | | | | + +--------+---------+------+------+------+ + +---+ | albuterol 2.5 mg/3 mL nebulizer | | | solution 2.5 mg 2.5 mg, | | | Nebulization, ONCE PRN, Wheezing, | | | Starting Mon07/16/18 at 1614, | | | For 1 dose, Notify anesthesia if | | | patient is wheezing and does not | | | have a history of asthma or COPD | | | or current smoking., | | | Recovery/Phase I | | + +---+ | | | + +---+ | dextrose 50% injection 12.5-25 | | | g 12.5-25 g, Intravenous, EVERY | | | 15 MIN PRN, Low Blood Sugar, Give | | | 12.5g (25 mL) IV if blood | | | glucose 50-69 mg/dL. Give 25g | | | (50 mL) IV if blood glucose < 50, | | | Starting Mon07/16/18 at 1351, | | | Repeat in 15 min if blood glucose | | | remains < 70 mg/dL. Repeat | | | blood glucose in 30 min once | | | blood glucose > 70., Pre-op | | + +---+ | | | + +---+ | dextrose 50% injection 12.5-25 | | | g 12.5-25 g, Intravenous, EVERY | | | 15 MIN PRN, Low Blood Sugar, For | | | hypoglycemia. Give 12.5g (25ml) | | | IV if blood glucose 50-69 | | | mg/dL. Give 25g (50ml) IV if | | | blood glucose < 50, Starting Mon | | | 07/16/18 at 1614, Give over 2 min. | | | Repeat in 15 min if blood | | | glucose remains < 70 mg/dL. | | | Repeat blood glucose in 30 min | | | once blood glucose > 70., | | | Recovery/Phase I | | + +---+ | | | + +---+ + +---------+ +---+---+---+ | lactated ringers (LR) infusion | New Bag | 07/16/20 | | | | | at 10-100 mL/hr, Intravenous, | | 18 3:17 | | | | | CONTINUOUS, Starting 07/16/18 | | PM PDT | | | | | at 1415, TKO., Pre-op | | | | | | + +---------+ +---+---+---+ +---------+ +--------+-------+---+ | New Bag | 07/16/20 | 1,000 | 100 | | | | 18 2:11 | mLs | mL/hr | | | | PM PDT | | | | +---------+ +--------+-------+---+ + +---+ | | | + +---+ | ondansetron (ZOFRAN) injection | | | 4 mg 4 mg, Intravenous, ONCE | | | PRN, Nausea, Starting 07/16/18 | | | at 1614, For 1 dose, | | | Recovery/Phase I | | + +---+ | | | + +---+ documented in this encounter
--- OUTSIDE RECORDS SUMMARY | ~2020-03-12 | XMS | Encounter Summary ---
Demographics + + + | Address | [address] | | | [place] [address] | + + + | Home Phone | | + + + | Preferred Language | Unknown | + + + | Marital Status | Single | + + + | Mu-Ism Affiliation | Unknown | + + + | Race | White | + + + | Ethnic Group | Not or | + + + Author + + + | Author | [facility] | + + + | Organization | [facility] | + + + | Address | Unknown | + + + | Phone | Unavailable | + + + Support + + +---------+ + | Name | Relationship | Address | Phone | + + +---------+ + | Marifer Valentin | ECON | Unknown | | + + +---------+ + Care Team Providers + +------+ + | Care Founder Ceo & President Name | Role | Phone | + +------+ + | Stephanie Washington | PCP | | + +------+ + Encounter Details +--------+ + + + + | Date | Type | Department | Care Team | Description | +--------+ + + + + | 07/11/ | Documentati | Digestive Health | Cindy Goyal, | | | 2019 | on | Center at [facility] [address] | FLY FINISHER [address] | | | | | [address] | [place], [place] | | | | | Mailcode: Center | [phone] | | | | | for Health and | | | | | | [facility] [address] | | | | | | [place], [place] | | | | | | [address] | | | | | | | [...]
--- OUTSIDE RECORDS SUMMARY | ~2020-03-12 | XMS | Encounter Summary ---
Demographics + + + | Address | [address] | | | [place] [address] | + + + | Home Phone | | + + + | Preferred Language | Unknown | + + + | Marital Status | Single | + + + | Denominational Affiliation | Unknown | + + + | Race | White | + + + | Ethnic Group | Not or | + + + Author + + + | Author | [facility] | + + + | Organization | [facility] | + + + | Address | Unknown | + + + | Phone | Unavailable | + + + Support + + +---------+ + | Name | Relationship | Address | Phone | + + +---------+ + | Marifer Valentin | ECON | Unknown | | + + +---------+ + Care Team Providers + +------+ + | Care Oiler Bander Name | Role | Phone | + [...] | Digestive Health | Clinic, Surgery | Medical Records | | 2019 | | [place] [facility] [address] | | Review | | | | [address] | | | | | | Mailcode: [place] | | | | | | [facility] and | | | | | | [facility] [address] | | | | | | [place], [place] | | | | | | [address] | | | | | | [phone] | | | +--------+ + + + [...]
--- OUTSIDE RECORDS SUMMARY | ~2020-03-12 | XMS | Encounter Summary ---
Demographics + + + | Address | [address] | | | [place] [address] | + + + | Home Phone | | + + + | Preferred Language | Unknown | + + + | Marital Status | | + + + | Nondenominational Affiliation | 1027 | + + + | Race | Unknown | + + + | Ethnic Group | Unknown | + + + Author + + + | Author | [facility] | | | and [place] | + + + | Organization | [facility] | | | and [place] [...] Team Providers + +------+ + | Care Clinic Receptionist Name | Role | Phone | + [...] | [facility] | [address] | | | | | [address] | [address] | | | | | [place], | [place] [address] | | | | | [place] [address] | [phone] | | | | | [phone] | | | +--------+ + + + [...]
--- OUTSIDE RECORDS SUMMARY | ~2020-03-12 | XMS | Encounter Summary ---
Demographics + + + | Address | [address] | | | [place] [address] | + + + | Home Phone | | + + + | Preferred Language | Unknown | + + + | Marital Status | Single | + + + | Yazidi Affiliation | Unknown | + + + | Race | White | + + + | Ethnic Group | Not or | + + + Author + + + | Author | [facility] | + + + | Organization | [facility] | + + + | Address | Unknown | + + + | Phone | Unavailable | + + + Support + + +---------+ + | Name | Relationship | Address | Phone | + + +---------+ + | Marifer Valentin | ECON | Unknown | | + + +---------+ + Care Team Providers + +------+ + | Care Resolution Manager Name | Role | Phone | + +------+ + | Stephanie Washington | PCP | | + +------+ + Reason for Visit + + + | Reason | Comments | + + + | Follow-up visit | | + + + Office Visit - E/M Services (Routine) + +--------+ + + + + | Status | Reason | Specialty | Diagnoses / | Referred By | Referred To | | | | | Procedures | Contact | Contact | + +--------+ + + + + | Authorized | | Surgery | | Non-[facility] | [facility] | | | | | | Epic Dept | Surg [facility] | | | | | | | [address] | | | | | | [address] | | | | | | | Mailcode: | | | | | | | [facility] | | [facility] | [facility] and | | | | | | | Healing, | | | | | | | Building [address] | | | | | | | [place], [place] | | | | | | | [address] | | | | | | | Phone: | | | | | | | [phone] | | | | | | | Fax: | | | | | | | [phone] | + +--------+ + + + + Encounter Details +--------+---------+ + + + | Date | Type | Department | Care Team | Description | +--------+---------+ + + + | 12/20/ | Office | Digestive Health | Marita Hadley, | Gastroesophageal | | 2020 | Visit | Center at [facility] [address] | MD [address] | reflux disease, | | | | [address] | [place], [place] | esophagitis presence | | | | Mailcode: Center | [address] | not specified | | | | for Health and | [phone] | (Primary Dx); Morbid | | | | [facility] 2 | | obesity with BMI of | | | | [place], [place] | | 45.0-49.9, adult | | | | [address] | | ([facility]) | | | | [phone] | | | +--------+---------+ + + + [...] + + + | Blood Pressure | 154/78 | 12/20/2019 4:05 PM | | | | | PST | | + + + + + | Pulse | 61 | 12/20/2019 3:56 PM | | | | | PST | | + + + + + | Temperature | 36.7 C (98 F) | 12/20/2019 3:56 PM | | | | | PST | | + + + + + | Respiratory Rate | - | - | | + + + + + | Oxygen Saturation | 99% | 12/20/2019 3:56 PM | | | | | PST | | + + + + + | Inhaled Oxygen | - | - | | | Concentration | | | | + + + + + | Weight | 126 kg (277 lb 12.8 | 12/20/2019 3:56 PM | | | | oz) | PST | | + + + + + | Height | 165.1 cm (5' 5") | 12/20/2019 3:56 PM | | | | | PST | | + + + + + | Body Mass Index | 46.23 | 12/20/2019 3:56 PM | | | | | PST | | + + + + + documented in this encounter Progress Notes Kaylee Torrez MD - 12/20/2019 2:40 PM PST The Department of Surgery Clinic Note Author: Kaylee Torrez MD Attending Physician: Marita Hadley MD 12/20/2019, 4:10 PM Patient Name: Tiffanie Valentin : 1950 Medical Record: [id number] ID: Tiffanie Valentin is a 69-year-old female patient with severe obesity (BMI 47.4), HTN, GE RD, bilateral chronic knee pain, anxiety, depression, and hemorrhoids, previously presented with chronic intermittent episodes of dry heaves, sweats, and abdominal discomfort found to have large hiatal hernia. HPI: Since initial visit 05/2019, she has enrolled in preop bariatrics with good result. She has been able to lose a moderate amount of weight, but also feels that she has more energy and i s fitter. She also has had good symptom relief with omeprazole BID. Denies severe reflux and regurgitation symptoms at this point. She also is still hesitant to have bariatric surgery, but feels positive overall about her outlook with medical weight loss. Denies constipation, nausea, vomiting, PO intolerance, fevers, chills, or other constitutional symptoms. She is also set to have a left knee replacement and wants to know if her hiatal hernia is a contrai ndication to surgery. MEDICAL HISTORY Past Medical History: Diagnosis Date Alcoholism (HCC) Sober since 1999 Anemia Anxiety Basal cell carcinoma Bilateral chronic knee pain Carpal tunnel syndrome Depression Fibroid GERD (gastroesophageal reflux disease) Hypertension Incisional hernia 6cm, incarcerated Metabolic syndrome Morbid obesity (HCC) Obstructive sleep apnea SURGICAL HISTORY Past Surgical History Procedure Laterality Date Carpal tunnel release 2007 right wrist, 2008 left wrist Salpingo-oophorectomy Left 2004 with cauterization of endometrial implant Excision of malignant lesion of skin 11/17/2015 External fixation of right tibia and fibula Right s/p removal Cardiac catheterization 01/02/2015 CONCLUSIONS: Normal angio and normal coronaries Egd (esophagogastroduodenoscopy) 07/16/2018 Left knee surgery FAMILY HISTORY Family History Problem Relation Thyroid disease Mother Heart Attack Father SOCIAL HISTORY Social History Socioeconomic History Marital status: Single Spouse name: Not on file Number of children: Not on file Years of education: Not on file Highest education level: Not on file Occupational History Not on file Social Needs Financial resource strain: Not on file Food insecurity: Worry: Not on file Inability: Not on file Transportation needs: Medical: Not on file Non-medical: Not on file Tobacco Use Smoking status: Former Smoker Types: Cigarettes Smokeless tobacco: Never Used Substance and Sexual Activity Alcohol use: Never Frequency: Never Comment: 20 years sober Drug use: Not Currently Sexual activity: Not on file Lifestyle Physical activity: Days per week: Not on file Minutes per session: Not on file Stress: Not on file Relationships Social connections: Talks on phone: Not on file Gets together: Not on file Attends yazidi service: Not on file Active member of club or organization: Not on file Attends meetings of clubs or organizations: Not on file Relationship status: Not on file Other Topics Concern Not on file Social History Narrative 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 Lives at home with daughter an d grand-daughter. Non-smoker. 3 dogs (2x pugs, mixed breed) and 2 cats at home. ALLERGIES No Known Allergies MEDICATIONS Current Outpatient Medications Medication Sig aspirin chewable 81 mg oral tablet,chewable Chew and swallow 81 mg once daily at bedtim e. cholecalciferol (vitamin D3) (VITAMIN D3 ORAL) Take by mouth. enalapril 20 mg oral tablet Take 20 mg by mouth two times daily. omeprazole 20 mg oral capsule,delayed release(DR/EC) Take 40 mg by mouth once daily in the morning. Administer 30 to 60 minutes before meals simvastatin 20 mg oral tablet Take 20 mg by mouth once daily in the evening. venlafaxine 75 mg oral tablet Take 75 mg by mouth once daily. No current facility-administered medications for this visit. REVIEW OF SYSTEMS: General: No constitutional symptoms of fevers, fatigue, chills, weight loss or sweats. HEENT: No changes in vision,No hearing loss, ringing in the ears Respiratory: No cough, SOB Musculoskeletal: No joint pain, swelling, weakness Cardiovascular: No chest pain, skipping beats Gastrointestinal: No loss of appetite, excessive appetite, indigestion, vomiting, nausea, constipation, gas, abdominal pain, diarrhea Genitourinary: No urinary frequency, painful urination. Neurologic: No unusual headaches, numbness, tingling Skin: No itching, rash Heme: No history of DVT, PE, easy bleeding or bruising PHYSICAL EXAM Vital Signs: BP 154/78 (BP Location: Left upper arm, Patient Position: Sitting) | Pulse 61 | Temp 36.7 C (98 F) (Oral) | Ht 1.651 m (5' 5") | Wt 126 kg (277 lb 12.8 oz) | SpO 2 99% | BMI 46.23 kg/m | BSA 2.4 m Constitutional: NAD, AOx3 HENT: Normocephalic, Atraumatic, Oropharynx moist, No oral exudates, Nose normal. Neck: Normal range of motion, No tenderness, Supple, No stridor. Eyes: EOMI, Conjunctiva normal, No discharge Cardiovascular: Normal heart rate, regular rhythm Respiratory: No respiratory distress GI: Soft, No tenderness, No masses, Integument: Warm, Dry, No erythema, No rash. Musculoskeletal: No edema, no deformity Neurologic: Alert & oriented x 3, Normal motor function, Normal sensory function, No focal deficits noted. Psychiatric: Affect normal, Judgment normal, Mood normal. PERTINENT LABS/STUDIES: No new labs or imaging ASSESSMENT AND PLAN: This is Tiffanie Valentin, a 69 y.o. F with BMI 46 and hiatal hernia with GERD. She is sympto matically improved with weight loss and BID PPI. We discussed her progress and tips for ericksonvivek ng forward with long-term weight loss. She remains hesitant to pursue surgical weight loss b ut will remain in the program and gauge her progress. -- OK for knee replacement from GI surgery perspective -- Continue Bariatric Surgery program follow up -- Return to clinic PRN Dr. Hadley has seen and examined the patient and agrees with the above plan. 1. The patient indicates understanding of these issues and agrees with the plan. 2. I reviewed the patient's medical information and medical history. 3. I have reviewed the past medical, family, and social history sections including the med ications and allergies listed in the above medical record. Kaylee Torrez MD MIS Fellow STAFF: I saw and evaluated the patient. I agree with the findings and the plan of care as kylie armendariz in the fellow s note. Marita Hadley MD [facility] [address] Mailcode: [place] [address] documented in this encounter Plan of Treatment Not on filedocumented as of this encounter Visit Diagnoses + + | Diagnosis | + + | Gastroesophageal reflux disease, esophagitis presence not specified - Primary | + + | Morbid obesity with BMI of 45.0-49.9, adult ([facility]) | + + documented in this encounter
--- OUTSIDE RECORDS SUMMARY | ~2020-03-12 | XMS | Encounter Summary ---
Demographics + + + | Address | [address] | | | [place] [address] | + + + | Home Phone [...] + | Author | [facility] | | | and [place] | + + + | Organization | [facility] | | | and [place] [...] Team Providers + +------+ + | Care Armature And Rotor Winder Name | Role | Phone | + [...] | | | left upper | | [address] | | | | | extremity, | | Phone: | | | | | including | | [phone] | | | | | shoulder | | Fax: | | | | | Procedures | | [phone] | | | | | NC EXC TUMOR | | | | | | | SOFT TISSUE | | | | | | | UPPER | | | | | | | ARM/ELBOW | | | | | | | SUBQ 3+CM | | | | | | | NC EXC SKIN | | | | | [...] Event | [facility] | RESIDENTIAL SUPPORT SPECIALIST [address] | | | | | INTRA MAIN [address] [place], | | | | | [address] | [place] [address] | | | | | [place] [address] | [phone] | | | | | [phone] | | | | | | | Hardeep Johnson, | | | | | | RESIDENTIAL SUPPORT SPECIALIST [address] | | | | | | [place] | | | | | | [address] | | | | | | | [...] +----+---+ + + | | 1 | [place] | | | | 0 | 43-degrees [...] +----+---+ + + | | 1 | [place] off | | | | 2 | [...] + + | Periph | 10/07/15; 0821; ulet-wri-uzbhib | 10/07/15 0821 by | 07/16/18 1411 [...] + + | Periph | 11/17/15; 1000; teuc-xwt-dyhkih | 11/17/15 1000 by | 11/17/15 1416 by | | eral | catheter system; 20 gauge, 1 in | Latasha Abbott | Dilcia Sewell, | | IV | length; distraction, intradermal | | ASPHALT PATCHER | | | injection, tolerated well; | [...] | healing within expectations; | RN | ASPHALT PATCHER | | | 11/17/15; 1416 | | | +--------+ + + + | Read | 11/17/15; 1144; Left; arm; | 11/17/15 1144 by | 11/17/15 1416 by | | only - | healing within expectations; | Collette Edmonds, | Dilcia Sewell, | | | 11/17/15; 1416 | RN | ASPHALT PATCHER | | Incisi | | | | [...]
--- OUTSIDE RECORDS SUMMARY | ~2020-03-12 | XMS | Encounter Summary ---
Demographics + + + | Address | [address] | | | [place] [address] | + + + | Home Phone | | + + + | Preferred Language | Unknown | + + + | Marital Status | | + + + | Yarsanism Affiliation | 1027 | + + + | Race | Unknown | + + + | Ethnic Group | Unknown | + + + Author + + + | Author | [facility] | | | and [place] | + + + | Organization | [facility] | | | and [place] [...] Team Providers + +------+ + | Care Banana Loader Name | Role | Phone | + [...] | | | left upper | | [address] | | | | | extremity, | | Phone: | | | | | including | | [phone] | | | | | shoulder | | Fax: | | | | | Procedures | | [phone] | | | | | DC EXC TUMOR | | | | | | | SOFT TISSUE | | | | | | | UPPER | | | | | | | ARM/ELBOW | | | | | | | SUBQ 3+CM | | | | | | | DC EXC SKIN | | | | | | | MALIG >4CM | | | | | | | TRUNK,ARM,LE | | | | | | | G | | | +--------+--------+ + + + + Encounter Details +--------+ + + + + | Date | Type | Department | Care Team | Description | +--------+ + + + + | 11/17/ | Hospital | [facility] | Guille Roldan, | Basal cell carcinoma | | 2016 | Encounter | [facility] | MD [address] | of shoulder, left | | | | [facility] [address] | [address] | (Primary Dx); Soft | | | | [address] | [place] | tissue mass | | | | [place] [address] | [address] | | | | | [phone] | [phone] | | | | | | | [...] help you feel better. Take it as osvaldo kimore pain becomes severe. Also, ask your doctor [...] interact with your prescription medicines or other gyei-yzo-teaujdo (OTC) drugs. Some pr escription medicines have [...] + + -------+ | Gender: FAge: | [facility] | | 65Date of : 1950 THIS IS AN ADDENDUM REPORT CASE: | CELLNETI X | | [id number]: Tiffanie CatalinoFox [facility] Cancer Centerathology Report [id number]: | | | Tiffanie Valentin Date of : 1950rovider: Guille | | | Ge Roldan MD [...] DESCRIPTION:A. | | | Received fresh, labeled "Brittaney Valentnijesus Santana", "A. Left upper armbasal | | | [...] mass or lesion | | | isidentified. Ob/Gyn sections are submitted as follows: A1 | | | -slice 5; A2-A17 - slices 12-15, entire well-healed scar (every | | | fourblock representing one composite section); A18-A20 - composite | | | slice 24with raised lesion in A18; A21 - slice 28.B. Received | | | fresh, labeled "Tiffanie Valentin", "B. Left upper armsoft tissue | [...] - centralareas with | | | hemorrhage. ([facility][id number]) Dominique Ordaz M.D. | | | Electronically signed 11/20/2015 19:55 Performed at | | | [facility]-[address] [address] | | | CLIA#: [id number] ADDENDUM: #1 FLUORESCENCE IN-SITU HYBRIDIZATION | | | (FISH) STUDIES:Source: Block [id number]: Cells of interest Name | | | [...] | | found to harboramplification of the 33b70-04 region, which includes | | | the [...] is | | | determined and a MDM2/EJL30emrsq is calculated for each case. A | [...] 405Extremity-based Tumors. Am J Surg Pathol 2010; 34:7055-7333. | | | Methodology: Fluorescence in situ hybridization (FISH) for MDM2 | | | geneamplification (using MDM2/CEP12 probes and the Cogniscanstems | | | Metaferautomated scanning fluorescent microscope) is performed at | | | [place]. [address]. Test results should be used in | | | conjunction with other availablelaboratory and clinical information. | | | This test was developed and itsperformance characteristics determined | | | by the Molecular PathologyLaboratory, [facility] | | | Laboratories. It has [...] Cheryl Ortiz MD. | | | Electronically juvpbu7611/23/2015 16:02 Performed at | | | [facility],[address] [place] [address] [address], [place], | | | [place] [address] CLIA#:[id number]: Unless otherwise | | | specified, a microscopic exam has been performed. Received Date: | | | 11/17/2015Collection Date: 11/17/2015Referring Physician: Jamar IRVIN, | | | Guille Carver Physician copies: | | | | | | | | | | | |Several studies have shown that molecular analysis refines the | | |classification of lipomatous tumors and is useful to discriminate | | |lipomas from atypical lipomatous tumor/well-differentiated liposarcoma | | |(ALT/WDL). Well-differentiated liposarcomas have been found to harbor | | |amplification of the 81s94-12 region, which includes the MDM2 (murine | [...] | | | |References: | | |1. Javier et al. Fluorescence in situ hybridization for MDM2 gene | | |amplification as a diagnostic tool in lipomatous neoplasms. Modern | | |Pathology (2008) 21, 943949. | | |2. Cassius et al. Molecular Testing for Lipomatous Tumors: Critical | | |Analysis and Test Recommendations Based on the Analysis of 405 | | |Extremity-based Tumors. Am J Surg Pathol 2010; 34:4849-0219. | | | | | |Methodology: Fluorescence in situ hybridization (FISH) for MDM2 gene | | |amplification (using MDM2/CEP12 probes and the nPulse Technologiess Metafer | | |automated scanning fluorescent microscope) is performed at [place], | | |[place]. [address]. | | | | | |Test results should be used in conjunction with other available | | |laboratory and clinical information. This test was developed and its | | |performance characteristics determined by the Molecular Pathology | | |Laboratory, [facility]. It has not been approved [...] signed | | |11/23/2015 16:02 Performed at [facility], | | |[address] [place] [address]#: | | |[id number] | | |Microscopic: Unless otherwise specified, a microscopic exam has been performed. | | | | | |Received Date: 11/17/2015 | | |Collection Date: 11/17/2015 | | |Referring Physician: Guille Roldan MD | | |Additional Physician copies: | | + + -------+ + + + + + | Performing | Address | City/State[facility] | Phone Number | | Organization | | | | + + + + + | REFERENCE LAB | [address] | [place] [address] | [phone] | | [facility] | [address] | | | + + + + + documented in this encounter Visit Diagnoses + + | Diagnosis | + + | Basal cell carcinoma of shoulder, left - Primary | + + | Soft tissue mass Disorders of soft tissue, unspecified | + + documented in this encounter [...] +--------+------+------+ +---+---+ | | | +---+---+ + +---------+ [...] Hand-Rig | | 0.5 mL, Intradermal, ONCE, Tue | | 16 10:00 | | | [...]
--- OUTSIDE RECORDS SUMMARY | ~2020-03-12 | XMS | Encounter Summary ---
Demographics + + + | Address | [address] | | | [place] [address] | + + + | Home Phone | | + + + | Preferred Language | Unknown | + + + | Marital Status | | + + + | Yarsani Affiliation | 1027 | + + + | Race | Unknown | + + + | Ethnic Group | Unknown | + + + Author + + + | Author | [facility] | | | and [place] | + + + | Organization | [facility] | | | and [...] Team Providers + +------+ + | Care Electrical And Instrumentation Mechanic Name | Role | Phone | + [...] | [facility] | [address] | | | | | [address] | [address] [place] | | | | | [place], | [phone] | | | | | [place] [address] | | | | | | [phone] | | | +--------+ + + + [...]
--- OUTSIDE RECORDS SUMMARY | ~2020-03-12 | XMS | Encounter Summary ---
Demographics + + + | Address | [address] | | | [place] [address] | + + + | Home Phone | | + + + | Preferred Language | Unknown | + + + | Marital Status | | + + + | Samaritan Affiliation | 1027 | + + + | Race | Unknown | + + + | Ethnic Group | Unknown | + + + Author + + + | Author | [facility] | | | and [place] | + + + | Organization | [facility] | | | and [place] [...] Team Providers + +------+ + | Care Lining Cleaner Name | Role | Phone | + [...] [place] | | | | | NM EXC SKIN | | [address] | | | | | [place] | | Phone: | | | | | 2.1-3CM | | [phone] | | | | | TRUNK,ARM,LE | | Fax: | | | | | G NM SPLIT | | [phone] | | | | | GRFT | [...] | [place] | | | [address] | [place] [address] | | | | | [place] | [phone] | | | | | | | [...] CELL CARCINOMA; Surgeon: Sundeep Lee MD; Location: [facility] LAGRANGE ALLERGIES: Review of patient's allergies indicates no [...] appointment: Appointment with Dr. Lee at the [facility] in the [facility] in 1 week as scheduled. Activity: No [...] up: Follow-up with Dr. Lee at the [facility], 2nd Floor on 10/13 at 8:00am. Please [...] dependent perso n for the next 24 hours.:[id number]} documented in this encounter Medications at Time [...] | | 65Date of : 1950 CASE: [id number]: Tiffanie | CELLNETI X | | [facility] [id number]: Tiffanie Valentin | | | Date of [...] scar is 0.9cm from the deep margin. Optical Instrument Specialist | | | sections are submitted asfollows: A1 - tips; A2-A8 - entire lesion | | | blocked out. (pam/[id number]) Jackson Vivar M.D. Electronically | | | signed 10/09/2015 13:07 Performed at [facility] | | | [place] [address] CLIA#: | | | [id number]: Unless otherwise specified, a microscopic exam | | | has been performed. Received Date: 10/07/2015Collection Date: | | | 10/07/2015Referring Physician: Jesus IRVIN, Sundeep [facility] | | | Physician copies: | [...] | | |cm from the deep margin. Optical Instrument Specialist sections are submitted as | | |follows: A1 - tips; A2-A8 - entire lesion blocked out. (pam/[id number]) | | | | | | | | | | | | | | | Jackson Vivar M.D. Electronically signed 10/09/2015 13:07 (815) | | |[phone] Performed at [facility], [address] [place] [address], | | |[place] [address] [facility]#: [id number] | | |Microscopic: Unless otherwise specified, a [...] + + | REFERENCE LAB | [address] | [place] [address] | [phone] | | Cubicl | [address] | | | + + [...]
--- OUTSIDE RECORDS SUMMARY | ~2020-03-12 | XMS | Encounter Summary ---
Demographics + + + | Address | [address] [facility] | | | [place] [address] | + + + | Home Phone | | + + + | Preferred Language | Unknown | + + + | Marital Status | | + + + | Confucianist Affiliation | 1027 | + + + | Race | Unknown | + + + | Ethnic Group | Unknown | + + + Author + + + | Author | [facility] | | | and [place] | + + + | Organization | [facility] | | | and Maverickana [...] Team Providers + +------+ + | Care Vocational Placement Specialist Name | Role | Phone | + [...] | | | left upper | | [address] | | | | | extremity, | | Phone: | | | | | including | | [phone] | | | | | shoulder | | Fax: | | | | | Procedures | | [phone] | | | | | [place] EXC TUMOR | | | | | | | SOFT TISSUE | | | | | | | UPPER | | | | | | | ARM/ELBOW | | | | | | | SUBQ 3+CM | | | | | | | [place] EXC SKIN | | | | | [...] Event | [facility] | SQUIRT MACHINE OPERATOR [address] | | | | | INTRA [address] [place], | | | | | [address] | [place] [address] | | | | | [place] [address] | [phone] | | | | | [phone] | | | | | | | Hardeep Johnson, | | | | | | SQUIRT MACHINE OPERATOR [address] | | | | | | [place] | | | | | | [address] | | | | | | | [...] +----+---+ + + | | 1 | Wright | | | | 0 | 43-degrees [...] +----+---+ + + | | 1 | Wright off | | | | 2 | [...] + + | Periph | 10/07/15; 0821; emfq-jim-wshdwc | 10/07/15 0821 by | 07/16/18 1411 [...] + + | Periph | 11/17/15; 1000; zodl-lrp-jvbder | 11/17/15 1000 by | 11/17/15 1416 by | | eral | catheter system; 20 gauge, 1 in | Latasha Abbott | Dilcia Sewell, | | IV | length; distraction, intradermal | | SLIP COVER SEAMSTRESS | | | injection, tolerated well; | [...] | healing within expectations; | RN | SLIP COVER SEAMSTRESS | | | 11/17/15; 1416 | | | +--------+ + + + | Read | 11/17/15; 1144; Left; arm; | 11/17/15 1144 by | 11/17/15 1416 by | | only - | healing within expectations; | Collette Edmonds, | Dilcia Sewell, | | | 11/17/15; 1416 | RN | SLIP COVER SEAMSTRESS | | Incisi | | | | [...]
--- OUTSIDE RECORDS SUMMARY | ~2020-03-12 | XMS | Encounter Summary ---
Demographics + + + | Address | [address] | | | [place] [address] | + + + | Home Phone | | + + + | Preferred Language | Unknown | + + + | Marital Status | Single | + + + | Latter-Day Affiliation | Unknown | + + + | Race | White | + + + | Ethnic Group | Not or | + + + Author + + + | Author | [facility] | + + + | Organization | [facility] | + + + | Address | Unknown | + + + | Phone | Unavailable | + + + Support + + +---------+ + | Name | Relationship | Address | Phone | + + +---------+ + | Marifer Valentin | ECON | Unknown | | + + +---------+ + Care Team Providers + +------+ + | Care Cap And Stud Machine Operator Name | Role | Phone [...] | 2019 | Visit | Center at [facility] [address] | | BMI of 45.0-49.9, | | | | [address] | | adult (HCC) (Primary | | | | Mailcode: Center | | Dx) | | | | for Health and | | | | | | [facility], [facility] [address] | | | | | | [place], [place] | | | | | | [address] | | | | | | [phone] | | | +--------+---------+ + + + [...] Gastrectomy. Documented Time of Class: 60 minutes fomz-oc-wwom with patient OBJECTIVE: Ht Readings from Last [...] Shoshana Paniagua, MS, RDN, CSOWM, LD, CDE [facility] Bariatrics [phone] documented in this e ncounter Plan of Treatment Not on filedocumented as of this encounter Visit Diagnoses + + | Diagnosis | + + | Morbid obesity with BMI of 45.0-49.9, adult (HCC) - Primary | + + documented in this encounter
--- OUTSIDE RECORDS SUMMARY | ~2020-03-12 | XMS | Encounter Summary ---
Demographics + + + | Address | [address] | | | [place] [address] | + + + | Home Phone | | + + + | Preferred Language | Unknown | + + + | Marital Status | | + + + | Confucianist Affiliation | 1027 | + + + | Race | Unknown | + + + | Ethnic Group | Unknown | + + + Author + + + | Author | [facility] | | | and [place] | + + + | Organization | [facility] | | | and [...] Team Providers + +------+ + | Care Board Certified Arts Therapist Name | Role | Phone | + +------+ + | Peng Fink MD | PCP | | + +------+ + Reason for Visit + + + | Reason | Comments | + + + | Knee Problem | Lt Knee | + + + Encounter Details +--------+---------+ + + + | Date | Type | Department | Care Team | Description | +--------+---------+ + + + | 06/22/ | Office | [facility] | Maxx Barraza MD | Primary localized | | 2015 | Visit | [facility] | [address] | osteoarthrosis, | | | | [address] | [address] [place] | lower leg, left | | | | [place] | [phone] | (Primary Dx) | | | | [address] | | | | | | [phone] | | | +--------+---------+ + + + [...] + + | Pulse | 76 | 06/22/2015 9:19 AM | Lt Wrist | | | | PDT | | [...] + + + + | Weight | 147.4 kg (325 lb) | 06/22/2015 9:19 AM | | | | | PDT | | + + + + + | Height | 167.6 cm (5' 6") | 06/22/2015 9:19 AM | | | | | PDT | | + + + + + | Body Mass Index | 52.46 | 06/22/2015 9:19 AM | | | | | PDT | | + + + + + documented in this encounter Patient Instructions Patient Instructions Maxx Barraza MD - 06/22/2015 10:07 AM PDTFormatting of this note caryl ht be different from the original. Weight Management: Exercise and Activity Studies show that people who exercise are the most likely to lose weight and keep it off. E xercise de la paz calories. It helps build muscle to make your body stronger. Make exercise an i mportant part of your weight-management plan. Make Activity Part of Your Day You may not think you have the time to exercise. But you can work activity into your daily life you just need to be committed. Take 10 minutes out of your lunch hour to take a [employer]. Walk to the [employer] to get your paper instead of having it delivered. Make it a habit t o take the stairs instead of the elevator. Park in the farthest parking spot instead of the closest. You ll be surprised at how fast these little changes can make a difference. The Benefits of Exercise Exercise increases your metabolism (the speed at which your body de la paz calories). Regular exercise can increase the amount of muscle in your body. Muscle de la paz calories f cruzito than fat. The more muscle you have, the more calories you burn. Exercise gives you energy and curbs your appetite. Exercise decreases stress and helps you sleep better. Make Exercise Fun Exercise can be fun. Choose an activity you enjoy. You may even get a friend to do it with you: Take a resistance-training or aerobics class Join a team sport Take a dance class Walk the dog Ride a bike If you have health problems, be sure to ask your doctor before you start an exercise mirna m. Have a management professional help you develop a plan that s safe for you. [id number] The [employer]. [address] [place] [address]. All righ ts reserved. This information is not intended as a substitute for professional medical care. Always follow your healthcare professional's instructions. documented in this encounter Progress Notes Maxx Barraza MD - 06/22/2015 9:35 AM PDT Pt. Name/Age/: Tiffanie Valentin 65 y.o. 1950 Date of Evalutaion: 06/22/2015 Chief Compliant: Left knee pain. History of Present Illness: Tiffanie is a 65 y.o. year old large stature female with left knee pain for over several yea rs, after sustaining a knee injury while skiing in the late 80s. Ever since the injury, her left knee has never been the same. Over the past few months, her symptoms have worsen, and now are moderate. Currently, she does not recall a specific inciting incident, it just gr adually worsened. Pain is located globally and she rates her pain as 4 at baseline and up t o 6. Pain quality is dull and throbbing. It is worsened by walking for long times, standi ng for prolonged time, squatting and twisting/pivoting. In general, she reports walking eden erance of <1/2 block, requires using railing for up/down stairs, and she does not uses walki ng aids. Conservative treatment has consisted of activity modification, attempted weight reduction, and taking over the counter NSAID's. Imagings: AP, lateral and sunrise views of left knee x-ray show severe degenerative changes in all t he compartments . They are totally bone on bone. There is a staple in the lateral portion of distal femur condyle. There are extensive osteophytes present and evidence of subchondra l sclerosis. Overall mild valgus deformity. Global narrowing of the other compartments are present as well. Kellgren & Kyle grade 4 Assessment: Left knee OA severe Plan: We reviewed the natural history and treatment options for the non operative treatment of de generative joint disease. Non-operative options we discussed included activity modification , use of a cane, an arthritis brace, neutraceuticals, oral analgesics, non-steroidal anti-in flammatory medications and intra-articular injections (corticosteroids and hyaluronic acid-b ased products). We discussed the risks and benefits of each treatment option, and I spend s ome time answering the patient s questions. We discussed that, should non-operative treat ment fail to provide the patient with lasting relief, surgical options might include artific ial joint replacement. Her biggest issue right now is her morbid obesity. Her body mass index assistive 50 which render her a poor candidate for any surgical treatment. The degree of her arthritis will li min require joint replacement option. She must lose approximately 100 pounds before the rosario rgery can be considered. I recommend for her to get a consult was a bariatric surgeon. All of Tiffanie 's questions were answered and she agrees with the above mentioned treatement . Past Medical/Surgical History & History: Active Ambulatory Problems Diagnosis Date Noted No Active Ambulatory Problems Resolved Ambulatory Problems Diagnosis Date Noted No Resolved Ambulatory Problems Past Medical History Diagnosis Date Hypertension Anxiety Palpitations Cataract Reflux Fractures 1988 Sleep apnea Dental bridge present Past Surgical History Procedure Laterality Date Ovary removal Right Eye surgery Bilateral cataract with lens implant Dilation and curettage of uterus 2012 Fracture surgery Right 1988 Tib-Fib with external fixator and subsequent removal Knee surgery Left 1988 Cardiac catherization N/A 01/02/2015 Procedure: LEFT HEART CATH W/ CORONARIES/CORONARY INTERVENTION; Surgeon: Jozef Hoover MD; Location: [facility] Carpal tunnel release Left 11/19/2007 Dr. Trey Morrell Carpal tunnel release Right 10/04/2007 Dr. Trey Morrell Current Medications: Current outpatient prescriptions: aspirin 81 mg EC tablet, Take 81 mg by mouth nightly., Di sp: , Rfl: ; Cholecalciferol (VITAMIN D-3) 2000 units CAPS, Take 2,000 Units by mouth Daily ., Disp: , Rfl: ; enalapril (VASOTEC) 20 MG tablet, Take 20 mg by mouth 2 times daily., Dis p: , Rfl: ; naproxen sodium (ALEVE) 220 MG tablet, Take 220 mg by mouth 2 times daily (with breakfast & dinner)., Disp: , Rfl: omeprazole (PRILOSEC) 20 mg capsule, Take 20 mg by mouth every morning (before breakfast)., Disp: , Rfl: ; simvastatin (ZOCOR) 20 mg tablet, Take 20 mg by mouth nightly., Disp: , Rfl : ; venlafaxine (EFFEXOR) 75 MG tablet, Take 75 mg by mouth every morning., Disp: , Rfl: Allergies: No Known Allergies Family History: Family History Problem Relation Age of Onset Anesth problems Neg Hx Broken bones Neg Hx Cancer Neg Hx Clotting disorder Neg Hx Collagen disease Neg Hx Diabetes Neg Hx Dislocations Neg Hx Osteoporosis Neg Hx Rheumatologic disease Neg Hx Scoliosis Neg Hx Severe sprains Neg Hx Other (See Comment) Neg Hx Social History: Pediatric History Patient Guardian Status Not on file. Other Topics Concern Not on file Social History Narrative Review of Systems:Our complete printed review of systems which was completed by the patient (with or without assistance from family members) was reviewed by me and noted in the recor d. pertinent positive findings are: Morbid obesity Physical Exam: Vitals Vitals noted in the CHART Physical examination: General: BMI:52 Patient is alert and oriented x 3, answers questions appropriately Not in acute distress Spine: cervical and lumbar spine showed no obvious area of pain, but global decreased flexi on, extension, and rotation Extremity: Upper extremity exam showed unremarkable, normal strength, normal sensation, ayala ited motion in UE Lymphatics: There was no edema and no adenopathy Circulation: There is a 1+ dorsalis pedis and 1+ posterior tib, brisk capillary refill Skin Skin color, texture, turgor normal. No rashes or lesions Alignment mild valgus on left leg Hip: passive ROM bilateral hips are symmetric, intact hip flexor and abductor strength Gait: There was a mild antalgic gait, with decreased stance phase on the left side KNEE EXAMINATION Skin: normal without discoloration, well healed medial para patellar incision Effusion: There was mild effusion noted in the knee Range of motion: ROM 15-100, pain at terminal flexion, mild valgus, moderate contracture is noted Stability: no significant opening with varus and valgus stress at extension or 30 degree fl exion with mediolateral showed <5 degree of laxity; negative for extensor lag; stable to anterior/posterior drawer test with anterior posterior excursion is <5 mm, Joint line exam: joint line tenderness found medial and lateral; positive for Key test without obvious clicking Patella: positive for patella crepitus or grind; tracking appear to be centralized, moder ate tenderness to palpation along the facet Strength: no weakness detected in the knee extensor or flexor; no extensor lag CC: Peng Fink MD No ref. provider found Note: Part of this report was transcribed using voice recognition software. Every effort w as made to ensure accuracy. However, inadvertent computerized conveyor tender errors may be pr esent. documented in this encounter Plan of Treatment Not on filedocumented as of this encounter Procedures + +--------+ + + + | Procedure Name | Priori | Date/Time | Associated Diagnosis | Comments | | | ty | | | | + +--------+ + + + | XR KNEE LEFT 3 VW | Routin | 06/22/2015 | Primary localized | Results for this | | | e | 9:37 AM | osteoarthrosis, | procedure are in the | | | | PDT | lower leg, left | results section. | + +--------+ + + + documented in this encounter Results XR Knee Left 3 Vw (06/22/2015 9:37 AM PDT) + + + | Narrative | Performed At | + + + | AP, lateral and sunrise views of left knee x-ray show severe | | | degenerative changes in all the compartments . They are totally | | | bone on bone. There is a staple in the lateral portion of distal | | | femur condyle. There are extensive osteophytes present and evidence | | | of subchondral sclerosis. Overall mild valgus deformity. Global | | | narrowing of the other compartments are present as well. | | | Kellgren & Kyle grade 4 | | + + + documented in this encounter Visit Diagnoses + + | Diagnosis | + + | Primary localized osteoarthrosis, lower leg, left - Primary | + + documented in this encounter
--- OUTSIDE RECORDS SUMMARY | ~2020-03-12 | XMS | Encounter Summary ---
Demographics + + + | Address | [address] | | | [place] [address] | + + + | Home Phone | | + + + | Preferred Language | Unknown | + + + | Marital Status | | + + + | Synagogue Affiliation | 1027 | + + + | Race | Unknown | + + + | Ethnic Group | Unknown | + + + Author + + + | Author | [facility] | | | and [place] | + + + | Organization | [facility] | | | and [...] Team Providers + +------+ + | Care Non Categorical Preschool Teacher Name | Role | Phone | + +------+ + | Peng Fink MD | PCP | | + +------+ + Encounter Details +--------+---------+ + + + | Date | Type | Department | Care Team | Description | +--------+---------+ + + + | 07/16/ | Surgery | [facility] | Ezra Green MD | EGD | | 2018 | | MED CTR MP INTRA OP | [address] | | | | | [address] | [place], [place] | | | | | [place], [place] | [address] | | | | | [address] | [phone] | | | | | [phone] | | | +--------+---------+ + + + [...] You can't be awakened Date Last Reviewed: 08/09/201619994571-1324 The [email or web address]. [address] [place] [address], [place] [address]. All righ ts reserved. This information is [...] | | | cell metaplasia or dysplasia. [facility]:smn:[id number] GROSS DESCRIPTION: | | | A. The [...] | | | interpretation were performed by [employer], [address] | | | [facility] [place] [address] (Urban Design Consultant: Jonatan Johns | | | Jareth Hamilton; CLIA#: [id number]). Diagnostician: Rene Rothman | | | Glenis IRVIN Pathologist Electronically Signed 07/18/2018 | | + + + + +---------+ + + | Performing | Address | City/State/Zipcode | Phone Number | | Organization | | | | + +---------+ + + | [facility] | | | | | [facility] [...]
--- OUTSIDE RECORDS SUMMARY | ~2020-03-12 | XMS | Encounter Summary ---
Demographics + + + | Address | [address] | | | [place] [address] | + + + | Home Phone | | + + + | Preferred Language | Unknown | + + + | Marital Status | Single | + + + | Sabianism Affiliation | Unknown | + + + [...] Team Providers + +------+ + | Care Senior International Tax Manager Name | Role | Phone | [...]
--- OUTSIDE RECORDS SUMMARY | ~2020-03-12 | XMS | Encounter Summary ---
Demographics + + + | Address | [address] [facility] | | | [place] [address] | + + + | Home Phone | | + + + | Preferred Language | Unknown | + + + | Marital Status | | + + + | Holiness Affiliation | 1027 | + + + | Race | Unknown | + + + | Ethnic Group | Unknown | + + + Author + + + | Author | [facility] | | | and [place] | + + + | Organization | [facility] | | | and [place] [...] Team Providers + +------+ + | Care Armored Car Messenger Name | Role | Phone | + +------+ + | Marita Albrecht MD | PCP | | + +------+ + Encounter Details +--------+ + + + + | Date | Type | Department | Care Team | Description | +--------+ + + + + | 10/04/ | Hospital | [facility] | Trey Morrell MD | | | 2006 | Encounter | [facility] | [address] | | | | | [address] | [address] | | | | | [address] | [place] | | | | | [place] | [phone] | | | | | [phone] | | | +--------+ + + + [...]
--- OUTSIDE RECORDS SUMMARY | ~2020-03-12 | XMS | Encounter Summary ---
Demographics + + + | Address | [address] | | | [place] [address] | + + + | Home Phone | | + + + | Preferred Language | Unknown | + + + | Marital Status | | + + + | Hoahaoism Affiliation | 1027 | + + + | Race | Unknown | + + + | Ethnic Group | Unknown | + + + Author + + + | Author | [facility] | | | and [place] | + + + | Organization | [facility] | | | and [place] | [...] Team Providers + +------+ + | Care Assistant Director Of Admissions Name | Role | Phone | + [...] | | | | [place] | [phone] | (Primary Dx) | | | | [address] | | | | | | [phone] | | | +--------+---------+ + + + [...] of your lunch hour to take a [employer]. Walk to the [employer] to get your paper instead of having [...] start an exercise mirna m. Have a security professional help you develop a plan that s safe for you. [id number] [employer]. [address] [place] [address]. All righ ts reserved. This information is [...] CORONARIES/CORONARY INTERVENTION; Surgeon: Jozef Hoover MD; Location: [facility] Carpal tunnel release Left 11/19/2007 [...] made to ensure accuracy. However, inadvertent computerized teletype clerk errors may be pr esent. documented in [...]
--- OUTSIDE RECORDS SUMMARY | ~2020-03-12 | XMS | Encounter Summary ---
Demographics + + + | Address | [address] | | | [place] [address] | + + + | Home Phone | | + + + | Preferred Language | Unknown | + + + | Marital Status | | + + + | Jehovah'S Witness Affiliation | 1027 | + + + | Race | Unknown | + + + | Ethnic Group | Unknown | + + + Author + + + | Author | [facility] | | | and [place] | + + + | Organization | [facility] | | | and [place]ver[place] [...] Team Providers + +------+ + | Care Envelope Machine Adjuster Name | Role | Phone | + [...] | | | Procedures | | [place] | | | | | [place] EXC SKIN | | [address] | | | | | [place] | | Phone: | | | | | 2.1-3CM | | [phone] | | | | | TRUNK,ARM,LE | | Fax: | | | | | G MO SPLIT | | [phone] | | | | | GRFT | | | | | | | TRUNK,ARM,LE | | | | | | | G <100SQCM | | | +--------+--------+ + + + + Encounter Details +--------+ + + + + | Date | Type | Department | Care Team | Description | +--------+ + + + + | 10/07/ | Anesthesia | [facility] | Marissa Lomeli, | | | 2014 | Event | [facility] | 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 [address] | | | | | [address] | | | | | [address] | | | | | | [place] | Roc Mcallister, | | | | | | 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 [address] | | | | | | [address] 2[address] Floor | | | | | | [place] | | | | | | | | +--------+ + + + + Anesthesia Record + + + + + | Procedure Name | Responsible | Anesthesia Start | Anesthesia Stop Time | | | Anesthesiologist | Time | | + + + + + | EXCISION OF RIGHT | Marissa Lomeli, | 10/07/15 0835 | 10/07/15 0951 | | 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 | | | 8 | | | | | 2 | | | | | 5 | | | +----+---+ + + | | 0 | An Start | Reassessment prior to anesthesia induction/procedure. | | | 8 | | | | | 3 | | | | | 5 | | | +----+---+ + + | | 0 | Antibiotic | | | | 8 | Given | | | | 5 | | | | | 4 | | | +----+---+ + + | | 0 | Pre-Procedu | | | | 8 | ral Timeout | | | | 5 | Completed | | | | 4 | | | +----+---+ + + | | 0 | Quick Note | 10 ml of local injected by surgeon | | | 8 | | | | | 5 | | | | | 5 | | | +----+---+ + + | | 0 | First | | | | 9 | Inc/Proc St | | | | 0 | | | | | 4 | | | +----+---+ + + | | 0 | Quick Note | 16 ml local injected by surgeon | | | 9 | | | | | 0 | | | | | 5 | | | +----+---+ + + | | 0 | an stop | | | | 9 | data | | | | 4 | | | | | 2 | | | +----+---+ + + | | 0 | An Stop | Transported to pacu with 8 LPM O2 by FM with adequate spontaneous | | | 9 | | respirations. Patient handed off to recovery nurse with complete | | | 5 | | SBAR report. BP: 116/67 HR: 65 RR: Spo2: 98, RA T: 36.5 | | | 1 | | | | | | | 9:51 | +----+---+ + + +------+ | Meds | +------+ + +---------+ | Name | Total | + +---------+ | midazolam | 2 mg | + +---------+ | fentaNYL | 100 mcg | + +---------+ | propofol | 80 mg | + +---------+ + + | Name | + + | N2O Flow Rate (L/Min) | + + | O2 Flow Rate (L/Min) | + + | Insp O2 | + + | Exp N2O | + + | Air Flow Rate (L/Min) | + + + + | No blood administrations on file. | + + +--------+ + + + | Type | Details | Placement | Removal | +--------+ + + + | Periph | 10/07/15; 0821; [id number] | 10/07/15 0821 by | 07/16/18 1411 by | | eral | catheter system; 20 gauge, 1 in | Ana Paula Valladares | Mary Carmen Smith, | | IV | length; distraction, tolerated | | RN | | | well; 07/16/18; 1411 | | | +--------+ + + + | Read | 10/07/15; 0910; back; 07/16/18; | 10/07/15 0910 by | 07/16/18 1411 by | | only - | 1411 | Cosmo Wilkins, | Mary aCrmen Smith, | | | | RN | [...] | | | + +--------+ +--------+------+------+ | fentaNYL injection PRN, Pain, | Given | 10/07/20 | 25 mcg | | | | Starting 10/07/15 at 0905, | | 15 9:18 | | | | | Anesthesia Intra-op | | AM PST | | | | + +--------+ +--------+------+------+ +-------+ +--------+---+---+ | Given | 10/07/20 | 25 mcg | | | | | 15 9:17 | | | | | | AM PST | | | | +-------+ +--------+---+---+ | Given | 20 | 25 mcg | | | | | 15 9:13 | | | | | | AM PST | | | | +-------+ +--------+---+---+ +---+---+ | | | +---+---+ + +-------+ +------+---+---+ | midazolam (VERSED) 1 mg/mL | Given | 10/07/20 | 2 mg | | | | injection PRN, Anxiety, Starting | | 15 8:35 | | | | | Mon10/07/15 at 0835, Anesthesia | | AM PST | | | | | Intra-op | | | | | | + +-------+ +------+---+---+ +---+---+ | | | +---+---+ + +-------+ +-------+---+---+ | propofol (DIPRIVAN) injection | Given | 10/07/20 | 20 mg | | | | PRN, Starting Mon10/07/15 at | | 15 9:31 | | | | | 0853, Anesthesia Intra-op | | AM PST | | | | + +-------+ +-------+---+---+ +-------+ +-------+---+---+ | Given | 10/07/20 | 10 mg | | | | | 15 9:05 | | | | | | AM PST | | | | +-------+ +-------+---+---+ | Given | 10/07/20 | 50 mg | | | | | 15 8:53 | | | | | | AM PST | | | | +-------+ +-------+---+---+ +---+---+ | | | +---+---+ documented in this encounter"
--- OUTSIDE RECORDS SUMMARY | ~2020-03-12 | XMS | Encounter Summary ---
Demographics + + + | Address | [address] | | | [place] [address] | + + + | Home Phone | | + + + | Preferred Language | Unknown | + + + | Marital Status | | + + + | Episcopal Affiliation | 1027 | + + + | Race | Unknown | + + + | Ethnic Group | Unknown | + + + Author + + + | Author | [facility] | | | and [place] | + + + | Organization | [facility] | | | and [place] [...] Team Providers + +------+ + | Care Case Coordinator Name | Role | Phone | + +------+ + | Peng Fink MD | PCP | | + +------+ + Encounter Details +--------+ + + + + | Date | Type | Department | Care Team | Description | +--------+ + + + + | 07/16/ | [facility] | [facility] | Ezra Green MD | | | 2018 | Encounter | MED CTR MP INTRA OP | [address] | | | | | [address] | [place], [place] | | | | | [place], [place] | [address] | | | | | [address] | [phone] | | | | | [phone] | | | +--------+ + + + [...] You can't be awakened Date Last Reviewed: 08/09/201619994953-3466 [employer]. [address] [place] [address], [place] [address]. All righ ts reserved. This information is [...] | | | cell metaplasia or dysplasia. [facility]:smn:C2NR GROSS DESCRIPTION: | | | A. The [...] | | | interpretation were performed by [facility], [address] | | | [place] [address] (Comfort Station Supervisor: Jonatan Johns | | | Jareth Hamilton; IA#: [id number]). Diagnostician: Rene Rothman | | | Glenis IRVIN Pathologist Electronically Signed 07/18/2018 | | + + + + +---------+ + + | Performing | Address | City/State/Zipcode | Phone Number | | Organization | | | | + +---------+ + + | [facility] | | | | | [facility] [...]
--- OUTSIDE RECORDS SUMMARY | ~2020-03-12 | XMS | Encounter Summary ---
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 | [facility] [address] | | | | | obesity with | [address] | | | | | BMI of | [address] | Mailcode: | | | | | 45.0-49.9, | [place], [place] | [facility] | | | | | adult (HCC) | [address] | for Health | | | | | Depression, | Phone: | and Healing, | | | | | unspecified | [phone] | Building [address], | | | | | depression | Fax: | 15th Floor | | | | | type | [phone] | [place], [place] | | | | | Hypertension | | [address] | | | | | , | | Phone: | | | | | unspecified | | [phone] | | | | | type | | Fax: | | | | | Obstructive | | [phone] | | | | | sleep apnea [...] 10/25/ | Office | [facility] Center at [facility] | Beatriz Sanches | Morbid obesity with | | 2020 | Visit | [address] | Alicia, PhD [address] | BMI of 45.0-49.9, | | | | Mailcode: CH15[facility] | [place], [place] | adult ([facility]) (Primary | | | | Center for Health | [address] | Dx); Depression, | | | | and Healing, | [phone] | unspecified | | | | | | depression type | | | | Floor [facility] [place] | | | | | | [address] | | | | | | [phone] | | | +--------+---------+ + + + [...] a 69 y.o. female who lives in [facility]. wi th her daughter and granddaughter. She was referred for psychological evaluation prior to [facility] surgery. Informed consent and limits of confidentiality were discussed prior to the interview. Please see medical records for previous attempts at weight management. Eating and Dietary Styles: Tiffanie reported she is eating within first hour of waking; eatin g regularly, about 4 times daily, and small portions. She is going to a [employer] support group f or weight management [...] per week. 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 The p [...] treatment for alcohol use Social History: Tiffanie Valentin is youngest of three children raised by her parents, and her twin brothers are nearly ten years older than she is. She had another brother, four years o lder than she, who at age 6. She reports her father was an alcoholic. Religion was a jeancarlos ce of support and [...] 3. She should continue with following the customer success advocate's recommendations, and is encourged to improve her [...] with the patient was approximately 55 minutes mjnz-tt-zasn with the maciel ent, and approximately 15 minutes of administering testing and 1 hour and 20 minutes of non- hrju-ha-hxcd interpreting and synthesizing results. Beatriz Sanches, PhD PAIN CENTER AT [facility] 15TH FLOOR [address] Mailcode: [address] [address] documented in thi s encounter Plan of Treatment Not on filedocumented as of this encounter Procedures + +--------+ + + + | Procedure Name | Priori | Date/Time | Associated Diagnosis | Comments | | | ty | | | | + +--------+ + + + | [facility] | Routin | 10/26/2019 | Morbid obesity | | | PSYCHOLOGICAL/NEUROP | e | 1:03 PM | with BMI of | | | SYCHOLOGICAL TEST | | PST | 45.0-49.9, adult | | | QHP; FIRST 30 MIN | | | ([facility]) Depression, | | | | | | unspecified | | | | | | depression type | | + +--------+ + + + | [facility] | Routin | 10/26/2019 | Morbid obesity | | | TESTING EVAL QHP; EA | e | 1:03 PM | with BMI of | | | ADDL HOUR | | PST | 45.0-49.9, adult | | | | | | ([facility]) Depression, | | | | | | unspecified | | | | | | depression type | | + +--------+ + + + | [facility] | Routin | 10/26/2019 | Morbid obesity | | | TESTING EVAL QHP; | e | 1:03 PM | with BMI of | | | FIRST HOUR | | PST | 45.0-49.9, adult | | | | | | ([facility]) Depression, | | | | | | unspecified | | | | | | depression type | | + +--------+ + + + documented in this encounter Visit Diagnoses + + | Diagnosis | + + | Morbid obesity with BMI of 45.0-49.9, adult ([facility]) - Primary | + + | Depression, unspecified depression type | + + documented in this encounter"
--- OUTSIDE RECORDS SUMMARY | ~2020-03-12 | XMS | Encounter Summary ---
Demographics + + + | Address | [address] | | | [place] [address] | + + + | Home Phone | | + + + | Preferred Language | Unknown | + + + | Marital Status | | + + + | Baptism Affiliation | 1027 | + + + | Race | Unknown | + + + | Ethnic Group | Unknown | + + + Author + + + | Author | [facility] | | | and [place] | + + + | Organization | [facility] | | | and [...] Team Providers + +------+ + | Care Peoplesoft Hr Developer Name | Role | Phone | + [...] | [facility] [place] | [address] [facility] [facility] | | | | | INTRA [address] | [address] | | | | | [address] | [place] | | | | | [place] | [phone] | | | | | [phone] | | | +--------+ + + + [...]
--- OUTSIDE RECORDS SUMMARY | ~2020-03-12 | XMS | Encounter Summary ---
Demographics + + + | Address | [address] | | | [place] [address] | + + + | Home Phone | | + + + | Preferred Language | Unknown | + + + | Marital Status | | + + + | Latter-Day Affiliation | 1027 | + + + | Race | Unknown | + + + | Ethnic Group | Unknown | + + + Author + + + | Author | [facility] | | | and [place] | + + + | Organization | [facility] | | | and [place]ana [...] Team Providers + +------+ + | Care Percussion Instructor Name | Role | Phone | + [...] [place] | | | | | [place] EXC SKIN | | [address] | | | | | [place] | | Phone: | | | | | 2.1-3CM | | [phone] | | | | | TRUNK,ARM,LE | | Fax: | | | | | G CA SPLIT | | [phone] | | | | | GRFT | | | | | | | TRUNK,ARM,LE | | | | | | | G <100SQCM | | | +--------+--------+ + + + + Encounter Details +--------+ + + + + | Date | Type | Department | Care Team | Description | +--------+ + + + + | 10/07/ | Hospital | [facility] | Sundeep Lee, | | | 2014 | Encounter | [facility] | [address] | | | | | [address] | [address] [place], | | | | | [address] | [place] [address] | | | | | [place] | [phone] | | | | | [phone] | | | +--------+ + + + [...] CORONARIES/CORONARY INTERVENTION; Surgeon: Jozef Hoover MD; Location: [facility] CARD[facility] Carpal tunnel release Left 11/19/2007 Dr. Trey Morrell Carpal tunnel release Right 10/04/2007 Dr. Trey Morrell Eye surgery Bilateral cataracts with lens implant Skin full graft Right 10/07/2015 Procedure: EXCISION OF RIGHT UPPER BACK BASAL CELL CARCINOMA; Surgeon: Sundeep Lee MD; Location: [facility] [place] ALLERGIES: Review of patient's allergies indicates no [...] appointment: Appointment with Dr. Lee at the [facility] in the [facility] in 1 week as scheduled. Activity: [...] up: Follow-up with Dr. Lee at the [facility], 2nd Floor on 10/13 at 8:00am. [...] dependent perso n for the next 24 hours.:[id number]} documented in this encounter Medications at Time [...] escorted by daughter corinne jhaveri and valerie ts discharge criteria documented in this encounter Plan [...] + -------+ | Gender: FAge: | [facility] | | 65Date of : 1950 CASE: [id number]: Tiffanie | CELLNETI X | | [facility] [id number]: Tiffanie Valentin | | | Date of [...] scar is 0.9cm from the deep margin. Medicine Technologist | | | sections are submitted asfollows: A1 - tips; A2-A8 - entire lesion | | | blocked out. (pam/[id number]) Jackson Vivar M.D. Electronically | | | signed 10/09/2015 13:07 Performed at [facility] | | | [place] [address] CLIA#: | | | [id number]: Unless otherwise specified, a microscopic exam | | | has been performed. Received Date: 10/07/2015Collection Date: | | | 10/07/2015Referring Physician: Jesus IRVIN, [facility] | | | Physician copies: | | [...] | | |cm from the deep margin. Medicine Technologist sections are submitted as | | |follows: A1 - tips; A2-A8 - entire lesion blocked out. ([id number]) | | | | | | | | | | | | | | | Jackson Vivar M.D. Electronically signed 10/09/2015 13:07 (657) | | |[phone] Performed at [facility] Pathology[address], | | |[place] [address] [facility]#: [id number] | | |Microscopic: Unless otherwise specified, a microscopic exam has been performed. | | | | | |Received Date: 10/07/2015 | | |Collection Date: 10/07/2015 | | |Referring Physician: Sundeep Lee MD | | |Additional Physician copies: | | + + -------+ + + + + + | Performing | Address | City/State/Zipcode | Phone Number | | Organization | | | | + + + + + | REFERENCE LAB | [address] | [place] [address] | [phone] | | [place] | [address] | | | + + + + + documented in this encounter Visit Diagnoses Not on filedocumented in this encounter Administered Medications + + + +------+-------+------+ | Medication Order | MAR | Action | Dose | Rate | Site | | | Action | Date | | | | + + + +------+-------+------+ | lactated ringers (LR) infusion | Rate/Dos | 10/07/20 | | 100 | | | at 100 mL/hr, Intravenous, | e Verify | 15 10:20 | | mL/hr | | | CONTINUOUS, Starting 10/07/15 | | AM PST | | | | | at 0800, Pre-op | | | | | | + + + +------+-------+------+ +---------+ +---+-------+---+ | New Bag | 10/07/20 | | 100 | | | | 15 8:21 | | mL/hr | | | | AM PST | | | | +---------+ +---+-------+---+ +---+---+ | | | +---+---+ documented in this encounter
--- OUTSIDE RECORDS SUMMARY | ~2020-03-12 | XMS | Encounter Summary ---
Demographics + + + | Address | [address] | | | [place] [address] | + + + | Home Phone | | + + + | Preferred Language | Unknown | + + + | Marital Status | | + + + | Sabianist Affiliation | 1027 | + + + | Race | Unknown | + + + | Ethnic Group | Unknown | + + + Author + + + | Author | [facility] | | | and [place] | + + + | Organization | [facility] | | | and [...] Team Providers + +------+ + | Care Deep Well Contractor Name | Role | Phone | + +------+ + | Marita Albrecht MD | PCP | | + +------+ + Encounter Details +--------+ + + + + | Date | Type | Department | Care Team | Description | +--------+ + + + + | 11/27/ | Hospital | [facility] | Marita Albrecht, | | | 2006 | Encounter | [facility] IP | MD [address] | | | | | [address]IC [address] | | | | | [place], | [phone] | | | | | [place] | | | | | | [phone] | | | +--------+ + + + [...]
--- OUTSIDE RECORDS SUMMARY | ~2020-03-12 | XMS | Encounter Summary ---
Demographics + + + | Address | [address] | | | [place] [address] | + + + | Home Phone | | + + + | Preferred Language | Unknown | + + + | Marital Status | | + + + | Jew Affiliation | 1027 | + + + | Race | Unknown | + + + | Ethnic Group | Unknown | + + + Author + + + | Author | [facility] | | | and [place] | + + + | Organization | [facility] | | | and [place]verickana [...] Team Providers + +------+ + | Care Manager Plumbing Name | Role | Phone | + [...] | | | | | | [place] [address] | | | | | | [phone] | | | +--------+ + + + [...]
--- OUTSIDE RECORDS SUMMARY | ~2020-03-12 | XMS | Encounter Summary ---
Demographics + + + | Address | [address] | | | [place] [address] | + + + | Home Phone [...] Team Providers + +------+ + | Care Fact Checker Name | Role | Phone | + +------+ + | Stephanie [place] | PCP | | + +------+ + Encounter Details +--------+ + + + + | Date | Type | Department | Care Team | Description | +--------+ + + + + | 06/14/ | Hospital | Radiology/Imaging | Marita [place], | | | 2019 | Encounter | Lab at [facility] [address] | MD [address] | | | | | [address] Mailcode: | [facility] [place] | | | | | [address] | [address] | | | | | Health and Healing, | [phone] | | | | | [facility] | | | | | | Floor [place], [place] | | | | | | [address] | | | | | | [phone] | | | +--------+ + + + [...] + + documented as of this encounter Medications at Time of Discharge + + + +---------+--------+ + | Medication | Sig | Dispensed | Refills | Start | End Date | | | | | | Date | | + + + +---------+--------+ + | aspirin chewable | Chew and swallow 81 | | 0 | | | | 81 mg oral | mg once daily at | | | | | | tablet,chewable | bedtime. | | | | | + + + +---------+--------+ + | cholecalciferol | Take by mouth. | | 0 | | | | (vitamin D3) | | | | | | | (VITAMIN D3 ORAL) | | | | | | + + + +---------+--------+ + | enalapril 20 mg | Take 20 mg by mouth | | 0 | | | | oral tablet | two times daily. | | | | | + + + +---------+--------+ + | omeprazole 20 mg | Take 40 mg by mouth | | 0 | | | | oral capsule,delayed | once daily in the | | | | | | release(DR/EC) | morning. Administer | | | | | | | 30 to 60 minutes | | | | | | | before meals | | | | | + + + +---------+--------+ + | simvastatin 20 mg | Take 20 mg by mouth | | 0 | | | | oral tablet | once daily in the | | | | | | | evening. | | | | | + + + +---------+--------+ + | venlafaxine 75 mg | Take 75 mg by mouth | | 0 | | | | oral tablet | once daily. | | | | | + + + +---------+--------+ + documented as of this encounter Plan of Treatment Not on filedocumented as of this encounter Procedures + +--------+ + + + | Procedure Name | Priori | Date/Time | Associated Diagnosis | Comments | | | ty | | | | + +--------+ + + + | X-RAY ESOPHAGRAM | Routin | 06/14/2019 | Hiatal hernia with | Results for this | | | e | 2:28 PM | GERD and | procedure are in the | | | | PDT | esophagitis | results section. | + +--------+ + + + documented in this encounter Results X-RAY ESOPHAGRAM (06/14/2019 2:28 PM PDT) + + | Specimen | + + | | + + + + + | Narrative | Performed At | + + + | EXAM: Esophagram with active directory specialist radiograph HISTORY: Hiatal hernia | [facility] | | with GERD COMPARISON: None TECHNIQUE: Radiation dose reduction | RADIOLOGY VOICE | | technique was maximized where appropriate using pulsed fluoroscopy | RECOGNITION 2 | | and fluoro-store images. Fluoro Time: 81 sec FINDINGS: | | | Double contrast images were obtained with the patient upright in KHMER | | | position. Single contrast images [...] Note | + + | Service Account, Radiant Res In Interface - 06/14/2019 2:39 PM PDT EXAM: Esophagram | | with active directory specialist radiograph HISTORY: Hiatal hernia with GERD COMPARISON: None TECHNIQUE: | | Radiation dose reduction technique was maximized where appropriate using pulsed | | fluoroscopy and fluoro-store images. Fluoro Time: 81 sec FINDINGS: Double contrast | | images were obtained with the patient upright in KHMER position. Single contrast images | | were [...] necessary, edited the report. I agree with th e report as now presented. | | [...] | Hiatal hernia with GERD and esophagitis | + + documented in this encounter"
--- OUTSIDE RECORDS SUMMARY | ~2020-03-12 | XMS | Encounter Summary ---
Demographics + + + | Address | [address] | | | [place] [address] | + + + | Home Phone | | + + + | Preferred Language | Unknown | + + + | Marital Status | Single | + + + | Confucianist Affiliation | Unknown | + + + | Race | White | + + + | Ethnic Group | Not or | + + + Author + + + | Author | [facility] | + + + | Organization | [facility] | + + + | Address | Unknown | + + + | Phone | Unavailable | + + + Support + + +---------+ + | Name | Relationship | Address | Phone | + + +---------+ + | Marifer Valentin | ECON | Unknown | | + + +---------+ + Care Team Providers + +------+ + | Care Senior Informatica Etl Developer Name | Role | Phone | + +------+ + | Stephanie Washington | PCP | | + +------+ + Encounter Details +--------+ + + + + | Date | Type | Department | Care Team | Description | +--------+ + + + + | 07/08/ | Abstract | Digestive Health | Clinic, Surgery | | | 2019 | | [place] [facility] [address] | | | | | | [address] | | | | | | Mailcode: [place] | | | | | | for Health and | | | | | | Healing, [address] | | | | | | [place], [place] | | | | | | [address] | | | | | | [phone] | | | +--------+ + + + [...]
--- OUTSIDE RECORDS SUMMARY | ~2020-03-12 | XMS | Encounter Summary ---
Demographics + + + | Address | [address] | | | [place] [address] | + + + | Home Phone | | + + + | Preferred Language | Unknown | + + + | Marital Status | Single | + + + | Protestant Affiliation | Unknown | + + + | Race | White | + + + | Ethnic Group | Not or | + + + Author + + + | Author | [facility] | + + + | Organization | [facility] | + + + | Address | Unknown | + + + | Phone | Unavailable | + + + Support + + +---------+ + | Name | Relationship | Address | Phone | + + +---------+ + | Marifer Valentin | ECON | Unknown | | + + +---------+ + Care Team Providers + +------+ + | Care Loading Machine Operator Helper Name | Role | Phone | + +------+ + | Stephanie Washington | PCP | | + +------+ + Encounter Details +--------+ + + + + | Date | Type | Department | Care Team | Description | +--------+ + + + + | 07/10/ | Abstract | Digestive Health | Clinic, Surgery | | | 2019 | | [facility] [address] | | | | | | [address] | | | | | | Mailcode: [facility] | | | | | | for [facility] and | | | | | | Healing, [address] | | | | | | [place], [place] | | | | | | [address] | | | | | | [phone] | | | +--------+ + + + [...]
--- OUTSIDE RECORDS SUMMARY | ~2020-03-12 | XMS | Clinical Summary ---
Demographics + + + | Address | [address] | | | [place] [address] | + + + | Home Phone | | + + + | Preferred Language | Unknown | + + + | Marital Status | | + + + | Adventism Affiliation | 1027 | + + + | Race | Unknown | + + + | Ethnic Group | Unknown | + + + Author + + + | Author | [facility] | | | and [place] | + + + | Organization | [facility] | | | and [...] Team Providers + +------+ + | Care Biology Specialist Name | Role | Phone | + +------+ + | Peng Fink MD | PCP | | + +------+ + Allergies No Known Allergies Medications + + + +---------+------+------+-------+ | Medication | Sig | Dispensed | Refills | Star | End | Statu | | | | | | t | Date | s | | | | | | Date | | | + + + +---------+------+------+-------+ | omeprazole | Take 20 mg by mouth | | 0 | | | Activ | | (PRILOSEC) 20 mg | every morning | | | | | e | | capsule | (before breakfast). | | | | | | + + + +---------+------+------+-------+ | enalapril | Take 20 mg by mouth | | 0 | | | Activ | | (VASOTEC) 20 MG | 2 times daily. | | | | | e | | tablet | | | | | | | + + + +---------+------+------+-------+ | simvastatin | Take 20 mg by mouth | | 0 | | | Activ | | (ZOCOR) 20 mg tablet | nightly. | | | | | e | + + + +---------+------+------+-------+ | venlafaxine | Take 75 mg by mouth | | 0 | | | Activ | | (EFFEXOR) 75 MG | every morning. | | | | | e | | tablet | | | | | | | + + + +---------+------+------+-------+ | aspirin 81 mg EC | Take 81 mg by mouth | | 0 | | | Activ | | tablet | nightly. | | | | | e | + + + +---------+------+------+-------+ | | Take 12.5 mg by | | 0 | | | Activ | | hydrochlorothiazide | mouth every morning. | | | | | e | | (HYDRODIURIL) 12.5 | | | | | | | | MG tablet | | | | | | | + + + +---------+------+------+-------+ | fluticasone | 2 sprays by Each | | 0 | | | Activ | | (FLONASE) 50 | Nare route every | | | | | e | | mcg/nasal spray | morning. | | | | | | + + + +---------+------+------+-------+ | cholecalciferol | Take 1,000 Units by | | 0 | | | Activ | | (VITAMIN D-3) 1000 | mouth Daily. | | | | | e | | units TABS | | | | | | | + + + +---------+------+------+-------+ Active Problems + + + | Problem | Noted Date | + + + | Soft tissue mass | 11/17/2015 | + + + | Basal cell carcinoma of shoulder, left | 11/17/2015 | + + + Immunizations + + + + | Name | Administration Dates | Next Due | + + + + | TDAP, (ADOL/ADULT) | 10/16/2013 | | + + + + Family History + + +------+ + | Medical History | Relation | Name | Comments | + + +------+ + | Anesth problems | Neg Hx | | | + + +------+ + | Broken bones | Neg Hx | | | + + +------+ + | Cancer | Neg Hx | | | + + +------+ + | Clotting disorder | Neg Hx | | | + + +------+ + | Collagen disease | Neg Hx | | | + + +------+ + | Diabetes | Neg Hx | | | + + +------+ + | Dislocations | Neg Hx | | | + + +------+ + | Osteoporosis | Neg Hx | | | + + +------+ + | Other (see comment) | Neg Hx | | | + + +------+ + | Rheumatologic | Neg Hx | | | | disease | | | | + + +------+ + | Scoliosis | Neg Hx | | | + + +------+ + | Severe sprains | Neg Hx | | | + + +------+ + Social History + + + +--------+ [...] recent travel history available. | + + Last Filed Vital Signs + + + [...] | | + + + + + Plan of Treatment + + + + + | Health Maintenance | Due Date | Last Done | Comments | + + + + + | Hepatitis C | | | | | Screening | 1 | | | + + + + + | Vaccine: Zoster (1 | | | | | of 2) | 1 | | | + + + + + | Breast Cancer | | | | | Screening | 6 | | | + + + + + | Vaccine: | | | | | Pneumococcal 65+ (1 | 6 | | | | of 2 - PCV13) | | | | + + + + + | Adult Annual | | | | | Wellness Visit | 0 | | | + + + + + | Vaccine: Influenza | | 07/28/2017, 10/30/2014 | | | (Season Ended) | 0 | | | + + + + + | Vaccine: | | 10/16/2013, 02/25/2011 | | | Dtap/Tdap/Td (3 - | 3 | | | | Td) | | | | + + + + + | Colorectal Cancer | | 07/16/2018 | | | Screening | 8 | | | | (Colonoscopy) | | | | + + + + + Results Not on filefrom Last 3 Months Insurance + +--------+ +--------+ +---------+--------+ | Payer | Benefi | Subscriber | Effect | Phone | Address | Type | | | t Plan | ID | yeison | | | | | | / | | Dates | | | | | | Group | | | | | | + +--------+ +--------+ +---------+--------+ | LIFE | | [id number] | | [phone] | | Indemn | | | MDCR | | 016-Pr | 0 | | ity | | | SUPPL | | esent | | | | + +--------+ +--------+ +---------+--------+ | MEDICARE | MEDICA | [id number] | 06/23/20 | [phone] | | Medica | | | RE | | 16-Pre | 5 | | re | | | PART A | | sent | | | | | | AND B | | | | | | + +--------+ +--------+ +---------+--------+ + +--------+ +--------+ + + | Guarantor Name | Accoun | Relation to | Date | Phone | Billing Address | | | t Type | Patient | of | | | | | | | | | | + +--------+ +--------+ + + | Tiffanie Valentin | Person | Self [birth year] | [address] | | | al/Fam | | 1950 | [phone] | [place] [address] | | | fabian | | | 7 (Home) | | | | | | | [phone] | | | | | | | 2 (Work) | | + +--------+ +--------+ + + Advance Directives + + + + + | Type | Date Recorded | Patient | Explanation | | | | Lockstitch Front Maker | | + + + + + | Power of | | | | | Pie Dough Roller | | | | + + + + + | Advance | 01/02/2015 6:34 | | | | Directive | AM | | | + + + + + + + + + + | Code Status | Date | Date | Comments | | | Activated | Inactivated | | + + + + + | Full Code | 11/17/2015 | 11/17/2015 | | | | 12:22 PM | 4:19 PM | | + + + + +
--- OUTSIDE RECORDS SUMMARY | ~2020-03-12 | XMS | Encounter Summary ---
Demographics + + + | Address | [address] | | | [place] [address] | + + + | Home Phone | | + + + | Preferred Language | Unknown | + + + | Marital Status | Single | + + + | Orthodoxy Affiliation | Unknown | + + + | Race | White | + + + | Ethnic Group | Not or | + + + Author + + + | Author | [facility] | + + + | Organization | [facility] | + + + | Address | Unknown | + + + | Phone | Unavailable | + + + Support + + +---------+ + | Name | Relationship | Address | Phone | + + +---------+ + | Marifer Valentin | ECON | Unknown | | + + +---------+ + Care Team Providers + +------+ + | Care Webbing Seamer Pound Net Name | Role | Phone | + +------+ + | Stephanie Washington | PCP | | + +------+ + Encounter Details +--------+ + + + + | Date | Type | Department | Care Team | Description | +--------+ + + + + | 06/14/ | Hospital | Radiology/Imaging | Martia Hadley, | | | 2019 | Encounter | Lab at [facility] [address] | MD [address] | | | | | [address] Mailcode: | [facility] [place] | | | | | [address] | [address] | | | | | Health and Healing, | [phone] | | | | | [facility] | | | | | | Floor [place], [place] | | | | | | [address] | | | | | | [phone] | | | +--------+ + + + [...] + + + | EXAM: Esophagram with intermediate card tender radiograph HISTORY: Hiatal hernia | [facility] | | with GERD COMPARISON: None TECHNIQUE: Radiation dose reduction | RADIOLOGY VOICE | | technique was maximized where appropriate using pulsed fluoroscopy | RECOGNITION 2 | | and fluoro-store images. Fluoro Time: 81 sec FINDINGS: | | | Double contrast images were obtained with the patient upright in TAMAZIGHT | | | position. Single contrast images [...] PM PDT EXAM: Esophagram | | with intermediate card tender radiograph HISTORY: Hiatal hernia with GERD COMPARISON: None TECHNIQUE: | | Radiation dose reduction technique was maximized where appropriate using pulsed | | fluoroscopy and fluoro-store images. Fluoro Time: 81 sec FINDINGS: Double contrast | | images were obtained with the patient upright in TAMAZIGHT position. Single contrast images | | were [...]
--- OUTSIDE RECORDS SUMMARY | ~2020-03-12 | XMS | Encounter Summary ---
Demographics + + + | Address | [address] | | | [place] [address] | + + + | Home Phone | | + + + | Preferred Language | Unknown | + + + | Marital Status | | + + + | Christian Affiliation | 1027 | + + + | Race | Unknown | + + + | Ethnic Group | Unknown | + + + Author + + + | Author | [facility] | | | and [place] | + + + | Organization | [facility] | | | and [...] Team Providers + +------+ + | Care Chief Technician X Ray Name | Role | Phone | + +------+ + | Peng Fink MD | PCP | | + +------+ + Encounter Details +--------+ + + + + | Date | Type | Department | Care Team | Description | +--------+ + + + + | 07/20/ | Hospital | [facility] | Marita Albrecht, | | | 2004 | Encounter | [facility] [place] | [address] | | | | | [address] | [address] [place] | | | | | [address] | [address] | | | | | [place] | | | | | | [phone] | | | +--------+ + + + [...] + | SURGICAL PATHOLOGY | Routin | 07/20/2005 | | Results for this | | EXAM | e | 12:27 PM | | procedure are in the | | | | PDT | | results section. | + +--------+ + + + documented in this encounter Results Surgical Pathology Exam (07/20/2005 12:27 PM PDT) + + + + + + | Component | Value | Ref Range | Performed | Pathologist | | | | | At | Signature | + + + + + + | Final | | | [facility] | | | Diagnosis | | | LAB - | | | | [facility], | | [place] | | | | PFarheen VALENT[place], | | | | | | [place] Female 55 | | | | | | years | | | | | | | | | | | | Collected:07/20/2005 | | | | | | Soc Sec #: | | | | | | [phone] : | | | | | | 1950 | | | | | | | | | | | | Received:07/20/2005 | | | | | | Accession #: | | | | | | [id number] Clinician: | | | | | | Marita Albrecht MD | | | | | | | | | | | | Copy | | | | | | to: | | | | | | | | | | | | PATHOLOGY REPORT | | | | | | Final | | | | | | Diagnosis OVARY | | | | | | AND FALLOPIAN TUBE, | | | | | | RIGHT | | | | | | (SALPINGO-OOPHORECTOMY): | | | | | | 1. SEROUS CYST, | | | | | | OVARY. 2. FIBROUS | | | | | | ADHESIONS, SEROSAL | | | | | | SURFACES. SNOMED | | | | | | [id number], | | | | | | [id number], [id number], | | | | | | [id number], [id number] | | | | | | Kyle Stevenson, | | | | | | MD (Electronically | | | | | | signed by) | | | | | | Verified: 07/21/2005 | | | | | | [facility] | | | | | | Clinical Specimen | | | | | | : Right tube and ovary. | | | | | | Macroscopic | | | | | | The specimen is | | | | | | submitted in a | | | | | | formalin-filled | | | | | | container having a label | | | | | | with the | | | | | | patient's printed | | | | | | identification data, | | | | | | including her name | | | | | | "Homero Reddy | | | | | | R". The specimen | | | | | | consists of multiple | | | | | | tissue pieces, one of | | | | | | which consists of | | | | | | a previously opened | | | | | | cystic ovary measuring | | | | | | 5.0 x 4.0 x 2.5 cm. | | | | | | The outer surface | | | | | | is purple-pink and | | | | | | relatively smooth. The | | | | | | ovary contains an | | | | | | adherent tubal segment | | | | | | measuring 1.0 x 0.5 cm | | | | | | and containing a | | | | | | fimbriated end. The | | | | | | serosal surface is | | | | | | purple to pink-sahni. | | | | | | The ovary is | | | | | | filled with | | | | | | straw-colored, watery | | | | | | fluid. The wall of the | | | | | | cystic ovary | | | | | | measures 0.1-0.2 cm in | | | | | | thickness. No | | | | | | papillary excrescences | | | | | | are seen. The | | | | | | cystic ovary does | | | | | | contain a residual | | | | | | portion of normal | | | | | | ovarian parenchyma | | | | | | measuring 2.0 x 1.2 x | | | | | | 0.7 cm. The specimen | | | | | | container also holds a | | | | | | segment of | | | | | | fallopian tube measuring | | | | | | 6.5 x 0.6 cm. The | | | | | | serosal surface is | | | | | | purple to | | | | | | pink-sahni. The | | | | | | remaining tissue pieces | | | | | | consist of four segments | | | | | | of fibrous, | | | | | | purple to pink-sahni | | | | | | tissue measuring 0.5-2.5 | | | | | | cm in greatest | | | | | | dimensions. | | | | | | Bottom Turner sections | | | | | | are submitted for | | | | | | histologic processing in | | | | | | cassettes A-D. | | | | | | [facility] | | | | | | Microscopic Slides | | | | | | are examined. | | | | | | REDDY VALENTIN | | | | | | | | | | | | | | | | | | Page | | | | | | 1 | | | | + + + + + + + + | Specimen | + + | | + + + + + + + | Performing | Address | City/State/Zipcode | Phone Number | | Organization | | | | + + + + + | REFERENCE LAB | [address] | [place] [address] | [phone] | | [facility] | [address] | | | + + + + + | [facility] - | [address] [place] [address] [place] | [place] [address] | [phone] | | [place] | | | | + + + + + documented in this encounter Visit Diagnoses Not on filedocumented in this encounter
--- OUTSIDE RECORDS SUMMARY | ~2020-03-12 | XMS | Encounter Summary ---
Demographics + + + | Address | [address] | | | [place] [address] | + + + | Home Phone | | + + + | Preferred Language | Unknown | + + + | Marital Status | Single | + + + | Synagogue Affiliation | Unknown | + + + | Race | White | + + + | Ethnic Group | Not or | + + + Author + + + | Author | [facility] | + + + | Organization | [facility] | + + + | Address | Unknown | + + + | Phone | Unavailable | + + + Support + + +---------+ + | Name | Relationship | Address | Phone | + + +---------+ + | Marifer Valentin | ECON | Unknown | | + + +---------+ + Care Team Providers + +------+ + | Care Neon Sign Maker Name | Role | Phone | + +------+ + | Stephanie Washington | PCP | | + +------+ + Encounter Details +--------+ + + + + | Date | Type | Department | Care Team | Description | +--------+ + + + + | 07/11/ | Documentati | Digestive Health | Cinyd Goyal, | | | 2019 | on | Center at [facility] [address] | TOBACCO PRIMER MACHINE OPERATOR [address] | | | | | [address] | [place], [place] | | | | | Mailcode: Center | [address] | | | | | for Health and | | | | | | [facility], [facility] [address] | | | | | | [place], [place] | | | | | | [address] | | | | | | | [...]
--- OUTSIDE RECORDS SUMMARY | ~2020-03-12 | XMS | Encounter Summary ---
Demographics + + + | Address | [address] | | | [place] [address] | + + + | Home Phone | | + + + | Preferred Language | Unknown | + + + | Marital Status | Single | + + + | Yazidism Affiliation | Unknown | + + + | Race | White | + + + | Ethnic Group | Not or | + + + Author + + + | Author | [facility] | + + + | Organization | [facility] | + + + | Address | Unknown | + + + | Phone | Unavailable | + + + Support + + +---------+ + | Name | Relationship | Address | Phone | + + +---------+ + | Marifer Valentin | ECON | Unknown | | + + +---------+ + Care Team Providers + +------+ + | Care Greenhouse Laborer Name | Role | Phone | + [...] | 2018 | Visit | Center at [facility] [address] | | BMI of 45.0-49.9, | | | | [address] | | adult (HCC) (Primary | | | | Mailcode: Center | | Dx) | | | | for Health and | | | | | | [facility], [facility] [address] | | | | | | [place], [place] | | | | | | [address] | | | | | | [phone] | | | +--------+---------+ + + + [...] . Documented Time of Class: 60 minutes [id number] with patient OBJECTIVE: Height: Ht Readings from [...] Shoshana Paniagua, MS, RDN, CSOWM, LD, CDE [facility] Bariatrics [phone] documented in this e ncounter Plan of Treatment Not on filedocumented as of this encounter Visit Diagnoses + + | Diagnosis | + + | Morbid obesity with BMI of 45.0-49.9, adult (HCC) - Primary | + + documented in this encounter
--- OUTSIDE RECORDS SUMMARY | ~2020-03-12 | XMS | Encounter Summary ---
Demographics + + + | Address | [address] | | | [place] [address] | + + + | Home Phone | | + + + | Preferred Language | Unknown | + + + | Marital Status | | + + + | Restorationism Affiliation | 1027 | + + + | Race | Unknown | + + + | Ethnic Group | Unknown | + + + Author + + + | Author | [facility] | | | and [place] | + + + | Organization | [facility] | | | and [...] Team Providers + +------+ + | Care Powdered Sugar Supervisor Name | Role | Phone | [...] | [facility] | [address] | | | | | [address] | [address] | | | | | [place], | [place] [address] | | | | | [place] [address] | [phone] | | | | | [phone] | | | +--------+ + + + [...]
--- OUTSIDE RECORDS SUMMARY | ~2020-03-12 | XMS | Encounter Summary ---
Demographics + + + | Address | [address] | | | [place] [address] | + + + | Home Phone | | + + + | Preferred Language | Unknown | + + + | Marital Status | Single | + + + | Jainism Affiliation | Unknown | + + + [...] Team Providers + +------+ + | Care Sales And Marketing Representative Name | Role | Phone | + +------+ + | Stephaine [place] | PCP | | + +------+ [...]
--- OUTSIDE RECORDS SUMMARY | ~2020-03-12 | XMS | Encounter Summary ---
Demographics + + + | Address | [address] | | | [place] [address] | + + + | Home Phone | | + + + | Preferred Language | Unknown | + + + | Marital Status | | + + + | Mormon Affiliation | 1027 | + + + | Race | Unknown | + + + | Ethnic Group | Unknown | + + + Author + + + | Author | [facility] | | | and [place] | + + + | Organization | [facility] | | | and [...] Team Providers + +------+ + | Care Field Training Agent Name | Role | Phone | + [...] | [facility] | [address] | | | | | [address] | [address] | | | | | [place], | [place] [address] | | | | | [place] [address] | [phone] | | | | | [phone] | | | +--------+ + + + [...]
--- OUTSIDE RECORDS SUMMARY | ~2020-03-12 | XMS | Encounter Summary ---
Demographics + + + | Address | [address] | | | [place] [address] | + + + | Home Phone [...] | Organization | [facility] | | | and [...] Team Providers + +------+ + | Care Roundsman Name | Role | Phone | + [...] | [facility] [place] | [address] | | | | | [address] | [address] | | | | | [address] | [place] | | | | | [place] | [phone] | | | | | [phone] | | | +--------+ + + + [...]
--- OUTSIDE RECORDS SUMMARY | ~2020-03-12 | XMS | Encounter Summary ---
Demographics + + + | Address | [address] | | | [place] [address] | + + + | Home Phone [...] | Organization | [facility] | | | and [place] [...] Team Providers + +------+ + | Care Strike Off Machine Operator Name | Role | Phone | + +------+ + | Marita Albrecht MD | PCP | | + +------+ + Encounter Details +--------+ + + + + | Date | Type | Department | Care Team | Description | +--------+ + + + + | 02/22/ | Hospital | [facility] | Peng Fink MD | | | 2009 | Encounter | [facility] | [address] | | | | | [address] | [address], | | | | | [place], | [place] [address] | | | | | [place] [address] | | | | | | [phone] | | | +--------+ + + + [...] + + | [place] | [address] [facility] | [place] [address] | [phone] | | CORE LABORATORY (I) | | [...] + + | [place] | [address] | [place] [address] | [phone] | | CORE LABORATORY (I) | | | | + + + + + | [address] | | | | [place] | | | | + + + + + documented in this encounter Visit Diagnoses Not on filedocumented in this encounter"
--- OUTSIDE RECORDS SUMMARY | ~2020-03-12 | XMS | Encounter Summary ---
Demographics + + + | Address | [address] | | | [place] [address] | + + + | Home Phone | | + + + | Preferred Language | Unknown | + + + | Marital Status | Single | + + + | Baptist Affiliation | Unknown | + + + | Race | White | + + + | Ethnic Group | Not or | + + + Author + + + | Author | [facility] | + + + | Organization | [facility] | + + + | Address | Unknown | + + + | Phone | Unavailable | + + + Support + + +---------+ + | Name | Relationship | Address | Phone | + + +---------+ + | Marifer Valentin | ECON | Unknown | | + + +---------+ + Care Team Providers + +------+ + | Care Booster Station Operator Name | Role | Phone | + +------+ + | Stephanie Washington | PCP | | + +------+ + Reason for Referral Consultation (Routine) + + + + + [...] | [facility] Surg | | | with FIRE PREVENTION ENGINEER | | obesity (BMI | [address] | [address] | | | | | >= 40) | [address] | [address] | | | | | ([facility]) | Rd | Mailcode: | | | | | Procedures | [place], [place] | [place] for | | | | | CONSULT TO | [address] | Health and | | | | | BARIATRIC | Phone: | Healing, | | | | | SURGERY | [phone] | Building [address] | | | | | | Fax: | [place], [place] | | | | | | [phone] | [address] | | | | | | | Phone: | | | | | | | | | | | | | | Fax: | | | | | | | [phone] | + + + + + + + Consultation (Routine) +--------+--------+ + + + + | Status | Reason | Specialty | Diagnoses / | Referred By | Referred To | | | | | Procedures | Contact | Contact | +--------+--------+ + + + + | Closed | | Cardiology | Diagnoses | Ly Vo | Sowmya, | | | | | Severe | MD Adriane | MD Giuseppe | | | | | obesity (BMI | [address] | [address] | | | | | >= 40) | [address] | [address] | | | | | (HCC) | Rd | [place], [place] | | | | | Procedures | [facility] [place] | [address] | | | | | CONSULT TO | [address] | Phone: | | | | | CARDIOLOGY | Phone: | [phone] | | | | | | [phone] | Fax: | | | | | | Fax: | [phone] | | | | | | [phone] | | +--------+--------+ + + + + Reason for Visit Intake Referral (Routine) +--------+--------+ + + + + | Status | Reason | Specialty | Diagnoses / | Referred By | Referred To | | | | | Procedures | Contact | Contact | +--------+--------+ + + + + | Closed | | Surgery | Diagnoses | Addleman, | Gs Foregut | | | | | Hernia, | Stephanie K, | [address] | | | | | hiatal | [address] | [address] | | | | | | [address] | Mailcode: | | | | | | Tri | [facility] | | | | | | [place] [address] | Health and | | | | | | Phone: | Healing, | | | | | | [phone] | [address] | | | | | | Fax: | [place], [place] | | | | | | [phone] | [address] | | | | | | | Phone: | | | | | | | [phone] | | | | | | | Fax: | | | | | | | [phone] | +--------+--------+ + + + + Encounter Details +--------+---------+ + + + | Date | Type | Department | Care Team | Description | +--------+---------+ + + + | 06/14/ | Office | [facility] | Marita Hadley, | Hiatal hernia with | | 2019 | Visit | Center at [facility] [address] | MD [address] | GERD (Primary Dx); | | | | [address] | [place], [place] | Severe obesity (BMI | | | | Mailcode: Center | [address] | >= 40) ([facility]) | | | | for Health and | [phone] | | | | | Healing, [address] | | | | | | [place], [place] | | | | | | [address] | | | | | | [phone] | | | +--------+---------+ + + + [...] + + + | Blood Pressure | 137/67 | 06/14/2019 3:33 PM | | | | | PDT | | + + + + + | Pulse | 92 | 06/14/2019 3:33 PM | | | | | PDT | | + + + + + | Temperature | 37.1 C (98.8 F) | 06/14/2019 3:33 PM | | | | | PDT | | + + + + + | Respiratory Rate | - | - | | + + + + + | Oxygen Saturation | 98% | 06/14/2019 3:33 PM | | | | | PDT | | + + + + + | Inhaled Oxygen | - | - | | | Concentration | | | | + + + + + | Weight | 133.2 kg (293 lb | 06/14/2019 3:33 PM | | | | 11.2 oz) | PDT | | + + + + + | Height | 167.6 cm (5' 6") | 06/14/2019 3:33 PM | | | | | PDT | | + + + + + | Body Mass Index | 47.4 | 06/14/2019 3:33 PM | | | | | PDT | | + + + + + documented in this encounter Patient Instructions Patient Instructions Ly Vo MD - 06/14/2019 2:50 PM PDTIt was a pleasure to see yo u today. You have a hiatal hernia which may be causing some of your symptoms. You are indica marcello for weight loss and we recommend joining our bariatric program for education about weigh t loss strategies which may include medication assistance and surgery. You are being referre d to our bariatric program and to our medical weight loss provider. In the meantime, increas e your omeprazole to twice daily dosing. Please follow-up with Dr. Hadley in six months. [facility] Foregut and Bariatric Surgery ClinicElectronically signed by Ly Vo MD at 06/14 4:49 PM PDT documented in this encounter Progress Notes Ly Vo MD - 06/14/2019 2:50 PM PDT [facility] Department of Surgery Red Surgery Clinic Note Attending Physician: Marita Hadley MD 06/14/2019 RED SURGERY NEW PATIENT CLINIC NOTE Author: Joanna Vo MD Date: 06/14/2019 Reason for referral: Hiatal hernia Referring provider: Stephanie Washington PAC HPI: Tiffanie Valentin is a 68-year-old female patient with severe obesity (BMI 47.4), HTN, G ERD, bilateral chronic knee pain, anxiety, depression, and hemorrhoids presenting with chron ic intermittent episodes of dry heaves, sweats, and abdominal discomfort found to have large hiatal hernia. Starting 4-5 years ago, Ms. Valentin began experiencing bouts of relapsing/remiting 5-30 elizabeth nitesh episodes of generalized discomfort associated with dry heaves 2/2 nausea and abdominal d iscomfort and sweats without vomiting. She still intermittently gets sweats. She's been feel ing better since Monday of this week but had been feeling unwell as recently as the week prior. She infrequently has regurgitation of food associated with immediately eating after h aving an episode. She does feel somewhat better from these episodes after eating. She started taking omeprazole years ago which has controlled her symptoms of GERD well. She does have some voice hoarseness. Denies nocturnal reflux symptoms. She does have some inter mittent LUQ discomfort and bloating resolved with belching. She does have infrequent sensati on of food sticking in her throat, particularly to mashed potatoes. No regular dysphagia to solids or liquids. No untentional weight loss or gain. Bowel movements from 3-4 bowel moveme nts daily to a bowel movement every 3-4 days. No hematochezia but some dark stools in the se tting of iron supplementation. She underwent capsule endoscopy but the records were not read fabian available. She does have some subjective fevers and night sweats. She has been seen by an endocrinolog ist who wanted to check some urine studies but she was lost to follow up No cough, chest rekha n. When asked if I could address one concern for her, she replied: "Weight: It is tied to al l of my medical problems." She became somewhat tearful when discussing her relationship with food. She had previously tried Fen-phen for weight loss but this was over two decades ago a nd complicated by severe alcoholism. She has not previously considered bariatric surgery due to concerns about complications from the surgery. Of note, she does have a history of chron ic incarcerated incisional hernia. She denies any history of bowel obstruction. PMH: Past Medical History: Diagnosis Date Alcoholism (HCC) Sober since 1999 Anemia Anxiety Basal cell carcinoma Bilateral chronic knee pain Carpal tunnel syndrome Depression Fibroid GERD (gastroesophageal reflux disease) Hypertension Incisional hernia 6cm, incarcerated Metabolic syndrome Morbid obesity (HCC) Obstructive sleep apnea PSH: Past Surgical History Procedure Laterality Date Carpal tunnel release 2006 right wrist, 2008 left wrist Salpingo-oophorectomy Left 2004 with cauterization of endometrial implant Excision of malignant lesion of skin 11/17/2015 External fixation of right tibia and fibula Right s/p removal Cardiac catheterization 01/02/2015 CONCLUSIONS: Normal angio and normal coronaries Egd (esophagogastroduodenoscopy) 07/16/2018 Left knee surgery Family History: Reviewed, notable for history of MS in father. 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 Lives at home with daughter and grand-daughter. Non-smoker. 3 dogs (2x pugs, mixed breed) and 2 cats at home. MEDICATIONS: Current Outpatient Medications on File Prior to Visit Medication Sig Dispense Refill aspirin chewable 81 mg oral tablet,chewable Chew and swallow 81 mg once daily at bedtim e. cholecalciferol (vitamin D3) (VITAMIN D3 ORAL) Take by mouth. enalapril 20 mg oral tablet Take 20 mg by mouth two times daily. FLUTICASONE FUROATE NASL Instill in nose. hydroCHLOROthiazide 25 mg oral tablet Take 12.5 mg by mouth once daily. IRON ORAL Take by mouth. omeprazole 20 mg oral capsule,delayed release(DR/EC) Take 20 mg by mouth once daily. Ad center human resources manager 30 to 60 minutes before meals simvastatin 20 mg oral tablet Take 20 mg by mouth once daily in the evening. venlafaxine 75 mg oral tablet Take 75 mg by mouth once daily. No current facility-administered medications on file prior to visit. ALLERGIES: No Known Allergies OBJECTIVE: Vital Signs: BP 137/67 | Pulse 92 | Temp 37.1 C (98.8 F) (Oral) | Ht 1.676 m (5' 6") | Wt 133.2 kg (293 lb 11.2 oz) | SpO2 98% | BMI 47.40 kg/m | BSA 2.49 m Review of systems: 14-point ROS negative except for pertinent positives and negatives in HPI. Physical Exam: Gen: Alert, NAD, speaking in full and complete sentences HEENT: NCAT, MMM, EOMI Heart: Regular rate and rhythm Respiratory: Unlabored breathing on RA, symmetric chest rise Abdomen: Soft, obese, non-tender, 3" right paramedian abdominal hernia which was not reduce d Extremities: WWP Neuro: AAOx4, DANIELE Studies: 06/14/2019: X-Ray Esophagram Stomach containing sliding-type large hiatal hernia. 07/16/2018 EGD - negative pathology 1. LA grade B esophagitis 2. Large paraesophageal hernia 3. Fundic gland polyp in stomach - benign stomach biopsy ASSESSMENT: Tiffanie Valentin is a 68-year-old female [...] Jason's ulcers 4. RTC in [address] Hadley has seen and examined the patient and agrees with the above plan. Ly Vo MD [facility] Department of Surgery PGY-2 | [id number] STAFF: I saw and evaluated the patient. I agree with the findings and the plan of care as kylie armendariz in the resident s note. Marita Hadley MD [facility] [address] [facility] Mailcode: [place] [address] documented in this encounter Plan of Treatment Not on filedocumented as of this encounter Visit Diagnoses + + | Diagnosis | + + | Hiatal hernia with GERD - Primary | + + | Severe obesity (BMI >= 40) ([facility]) Morbid obesity | + + documented in this encounter
--- OUTSIDE RECORDS SUMMARY | ~2020-03-12 | XMS | Encounter Summary ---
Demographics + + + | Address | [address] | | | [place] [address] | + + + | Home Phone [...] Team Providers + +------+ + | Care Trade Union Official Name | Role | Phone | + [...]
--- OUTSIDE RECORDS SUMMARY | ~2020-03-12 | XMS | Encounter Summary ---
Demographics + + + | Address | [address] | | | [place] [address] | + + + | Home Phone | | + + + | Preferred Language | Unknown | + + + | Marital Status | | + + + | Christian Affiliation | 1027 | + + + | Race | Unknown | + + + | Ethnic Group | Unknown | + + + Author + + + | Author | [facility] | | | and [place] | + + + | Organization | [facility] | | | and [place] [...] Providers + +------+ + | Care Senior Application Software Engineer Name | Role | Phone | + +------+ + | Peng Fink MD | PCP | | + +------+ + Reason for Visit + + + | Reason | Comments | + + + | Finger Injury | | + + + Encounter Details +--------+ + + + + | Date | Type | Department | Care Team | Description | +--------+ + + + + | 10/16/ | Emergency | [facility] | Pelon Hernandez MD | Avulsion, finger tip | | 2012 | | [facility] | [address] | (Primary Dx) | | | | EMERGENCY [address] | | | | | [place], [place] | [place] | | | | | [address] | [phone] | | | | | [phone] | | | +--------+ + + + + Social History + +-------+ +--------+------+ | Tobacco Use | Types | Packs/Day | Years | Date | | | | | Used | | + +-------+ +--------+------+ | Never Smoker | | | | | + +-------+ +--------+------+ + + +---------+ + | Alcohol Use [...] + + + | Blood Pressure | 144/75 | 10/16/2013 3:14 PM | | | | | PST | | + + + + + | Pulse | 68 | 10/16/2013 3:14 PM | | | | | PST | | + + + + + | Temperature | 36.9 C (98.4 F) | 10/16/2013 3:14 PM | | | | | PST | | + + + + + | Respiratory Rate | 18 | 10/16/2013 3:14 PM | | | | | PST | | + + + + + | Oxygen Saturation | 96% | 10/16/2013 3:14 PM | | | | | PST | | + + + + + | Inhaled Oxygen | - | - | | | Concentration | | | | + + + + + | Weight | 136.1 kg (300 lb) | 10/16/2013 3:14 PM | | | | | PST | | + + + + + | Height | 165.1 cm (5' 5") | 10/16/2013 3:14 PM | | | | | PST | | + + + + + | Body Mass Index | 49.92 | 10/16/2013 3:14 PM | | | | | PST | | + + + + + documented in this encounter Discharge Instructions AttachmentsThe following attachments cannot be sent through Care Everywhere.FINGER TIP ZANDER BEARDEN, OPEN TREATMENT (MALTESE)documented in this encounter Medications at Time of [...] + | Diagnosis | + + | Avulsion, finger tip - Primary Open wound of finger(s) , without mention of | | complication | + + documented in this encounter Administered Medications + +--------+ +---------+------+ + | Medication Order | MAR | Action | Dose | Rate | Site | | | Action | Date | | | | + +--------+ +---------+------+ + | [id number] | Given | 12/25/20 | 0.5 mLs | | Deltoid- | | pertussis (BOOSTRIX, Tdap) | | 13 4:01 | | | Right | | vaccine injection 0.5 mL 0.5 mL, | | PM PST | | | | | Intramuscular, ONE TIME VACCINE, | | | | | | | 10/16/13 at 1615, For 1 | | | | | | | dose, Keep in refrigerator. | | | | | | | Provide patient education | | | | | | | information., | | | | | | + +--------+ +---------+------+ + +---+---+ | | | +---+---+ documented in this encounter
--- OUTSIDE RECORDS SUMMARY | ~2020-03-12 | XMS | Encounter Summary ---
Demographics + + + | Address | [address] | | | [place] [address] | + + + | Home Phone | | + + + | Preferred Language | Unknown | + + + | Marital Status | Single | + + + | Taoist Affiliation | Unknown | + + + | Race | White | + + + | Ethnic Group | Not or | + + + Author + + + | Author | [facility] | + + + | Organization | [facility] | + + + | Address | Unknown | + + + | Phone | Unavailable | + + + Support + + +---------+ + | Name | Relationship | Address | Phone | + + +---------+ + | Marifer Valentin | ECON | Unknown | | + + +---------+ + Care Team Providers + +------+ + | Care Internal Medicine Veterinary Technician Name | Role | Phone | [...] | | | | | [place], | | | | | | [place] [address] | | | +--------+ + + + [...]
--- OUTSIDE RECORDS SUMMARY | ~2020-03-12 | XMS | Encounter Summary ---
Demographics + + + | Address | [address] | | | [place] [address] | + + + | Home Phone [...] Team Providers + +------+ + | Care Able Seaman Name | Role | Phone | + [...]
--- OUTSIDE RECORDS SUMMARY | ~2020-03-12 | XMS | Clinical Summary ---
Demographics + + + | Address | [address] | | | [place] [address] | + + + | Home Phone [...] Author + + + | Author | [facility] | + + + | Organization | [facility] | + + + | Address | Unknown | + + + | Phone | Unavailable | + + + Support + + +---------+ + | Name | Relationship | Address | Phone | + + +---------+ + | Marifer Valentin | ECON | Unknown | | + + +---------+ + Care Team Providers + +------+ + | Care Wash Driller Helper Name | Role | Phone | + +------+ + | Stephanie Washington | PCP | | + +------+ + Source Comments NICOLE is fully live on both [facility] and [facility] InPatient.[facility] Allergies No Known Allergies Medications + + [...] | [employer] | [phone] | 10/23/19 | [phone] | [address] | PPO | | | [employer] | | 20-Pre | 4 | [address] | | | | RE PPO | | sent | | [place], | | | | | | | | [place] [address] | | + +--------+ +--------+ + +------+ + +--------+ +--------+ + + | Guarantor Name | Accoun | Relation to | Date | Phone | Billing Address | | | t Type | Patient | of | | | | | | | | | | + +--------+ +--------+ + + | Tiffanie Valentin | Person | Self [birth year] | [address] | | | al/Fam | | 1949 | [phone] | [place] | | | fabian | | | [address] (Home) | [address] | + +--------+ +--------+ + +
--- OUTSIDE RECORDS SUMMARY | ~2020-03-12 | XMS | Encounter Summary ---
Demographics + + + | Address | [address] | | | [place] [address] | + + + | Home Phone | | + + + | Preferred Language | Unknown | + + + | Marital Status | Single | + + + | Mormon Affiliation | Unknown | + + + | Race | White | + + + | Ethnic Group | Not or | + + + Author + + + | Author | [facility] | + + + | Organization | [facility] | + + + | Address | Unknown | + + + | Phone | Unavailable | + + + Support + + +---------+ + | Name | Relationship | Address | Phone | + + +---------+ + | Marifer Valentin | ECON | Unknown | | + + +---------+ + Care Team Providers + +------+ + | Care Fender Repairer Name | Role | Phone | + [...] | | | | | [place], | | | | | | [place] [address] | | | +--------+ + + + [...]
--- OUTSIDE RECORDS SUMMARY | ~2020-03-12 | XMS | Encounter Summary ---
Demographics + + + | Address | [address] | | | [place] [address] | + + + | Home Phone [...] Team Providers + +------+ + | Care Head Pastry Chef Name | Role | Phone | + [...] | Hernia, | Stephanie Lam, | [facility] [address] | | | | | hiatal | [place] [address] | | | | | | [place] | Mailcode: | | | | | | [place], | [facility] | | | | | | [place] [address] | [facility] and | | | | | | Phone: | Healing, | | | | | | [phone] | [address] | | | | | | Fax: | [place], [place] | | | | | | [phone] | [address] | | | | | | | Phone: | | | | | | | [phone] | | | | | | | Fax: | | | | | | | [phone] | +--------+--------+ + + + + Encounter Details +--------+---------+ + + + | Date | Type | Department | Care Team | Description | +--------+---------+ + + + | 08/19/ | Office | [facility] | Emily Joyner, | Severe obesity (HCC) | | 2019 | Visit | Therapy Services at | PT,DPT [address] | (Primary Dx) | | | | [facility] | [address] | | | | | [address] | [place], [place] | | | | | Mailcode: CH3P | [address] | | | | | [facility] | | | | | | and [place], | | | | | | [facility] | | | | | | Floor [place], [place] | | | | | | [address] | | | | | | [phone] | | | +--------+---------+ + + + [...] care for t he certification period documented. [facility] PHYSICAL THERAPY EVALUATION Past Medical History: [...] Moderate - Moderate complexity Complexity: Moderate - 82748 The patient requires services that can be [...] change in their status. Emily Joyner, PT,DPT [facility] PHYSICAL THERAPY SERVICES AT [facility] Scheduled Appointment time: 2:30 PM The patient was seen for a total of 45 minutes of treatment time. 45 minutes was in direct contact care as described above and on completed flow sheets. Treatment Interventions duration in minutes: Procedure:Physical Therapy Evaluation and Ther apeutic Activities 15 min Authorization information for first visit and progress reports Procedure Codes: Re-evaluation 61675, Therapeutic Exercise 21132, Manual Therapy 55353, Th erapeutic Activities 11917, Neuromuscular Reeducation 26141, Gait Training 28316 and Self-ca re ADL 80362 Minutes per session: 45 Total number of visits: 1 visit only Frequency: 1 visit only Duration: n/a (must exceed or match Medicare service period reques t) Service period from: 08/19/2019 to: 08/19/2019 (Medicare must match duration or be no gre ater than 90 days if proposed duration is greater than 3 months) Start of care: 08/19/2019 Referral information Authorizing Provider: ANGELI BARRERA [[id number]] Onset/Referral Date: 07/08/19 Primary/Referral Diagnosis: E66.01 Severe [...] + +--------+ + + + | [facility] | Routin | 08/19/2019 | Severe obesity | | | ACTIVITIES | e | 3:39 PM | ([facility]) | | | | | PDT | | | + +--------+ + + + documented in this encounter Visit Diagnoses + + | Diagnosis | + + | Severe obesity (HCC) - Primary Morbid obesity | + + documented in this encounter
--- OUTSIDE RECORDS SUMMARY | ~2020-03-12 | XMS | Encounter Summary ---
Demographics + + + | Address | [address] | | | [place] [address] | + + + | Home Phone [...] Author | [facility] | + + + | Organization | [facility] | + + + | Address | Unknown | + + + | Phone | Unavailable | + + + Support + + +---------+ + | Name | Relationship | Address | Phone | + + +---------+ + | Marifer Valentin | ECON | Unknown | | + + +---------+ + Care Team Providers + +------+ + | Care Clinical Ob Name | Role | Phone | + [...] Bill | | | | | | [place], [place] | | | | | | [address] | | | | | | [phone] | | | +--------+------+ + + + [...] results section. | | | | | ([facility]) Depression, | | | | | | [...] results section. | | | | | ([facility]) Depression, | | | | | | [...] B: | | | | | | yourdelivery/CSPerformed | | | | | | by QCoefficient,500 | | | | | | [facility] | | | | | | [address] | | | | | | [phone].Labels That Talk. | | | | | | lifepoint hospitalsJeffrey MD, | | | | | | [...] [facility] | [address] | [place], [place] | | | UNIV PTH - INTFC | | [address] | | + + + + + [...] [facility] | | | (ROC ALEXIS) | QCoefficient,500 | | REG UNIV | | | SERUM | [place], [facility] | | PTH - INTFC | | | | [address] | | | | | | [phone].EatingWelllab. | | | | | | Jeffrey [...] B: | | | | | | Labels That Talk.[employer]/CS | | | | + + + + + + + + | Specimen | + + | Blood - Blood | | (substance) | + + + + + + + | Performing | Address | City/State/Zipcode | Phone Number | | Organization | | | | + + + + + | [facility] | [address] | [place], [place] | | | UNIV PTH - INTFC | | [address] | | + + + + + [...] | + + + + + | [facility] | [address] | [place] [address] | | | SERVICES, CORE | ABEBA [...] | + + + + + | [facility] | [address] | [place] [address] | | | DEANDRE, ROSALIA | ABEBA [...] | | | | | determined by [employer] | | | | | | Laboratories. See | | | | | | Compliance Statement B: | | | | | | Labels That Talk.[employer]/CSPerformed | | | | | | by QCoefficient,500 | | | | | | [facility] | | | | | | [address] | | | | | | [phone].Labels That Talk. | | | | | | com, [...] + | [facility] | [address] [facility] | [place], [place] | | | UNIV PTH - INTFC | | [address] | | + + + + + [...] INTFC | | | | determined by [employer] | | | | | | Driver Hire. See | | | | | | Compliance Statement B: | | | | | | yourdelivery/CSPerformed | | | | | | by QCoefficient,500 | | | | | | [place], [place] | | | | | | [address] | | | | | | [phone].BPTlab. | | | | | | Jeffrey [...] [facility] | [address] | [place], [place] | | | UNIV PTH - INTFC | | [address] | | + + + + + [...] | + + + + + | [facility] | [address] | [place] [address] | | | SERVICES, [place] [facility] | | | | | HEALTH [...] | | | | | determined by [employer] | | | | | | Driver Hire. See | | | | | | Compliance Statement B: | | | | | | Labels That Talk.[employer]/CSPerformed | | | | | | by QCoefficient,500 | | | | | | [facility] | | | | | | [address] | | | | | | [phone].Labels That Talk. | | | | | | lifepoint hospitalsJeffrey MD, | | | | | | [...] [facility] | [address] | [place], [place] | | | UNIV PTH - INTFC | | [address] | | + + + + + [...] [facility] | [address] | [place] [address] | | | SERVICES, CORE | PARK [...] [facility] | [address] | [place] [address] | | | SERVICES, CORE | PARK [...] | + + + + + | [facility] | [address] | [place] [address] | | | SERVICES, SPECIAL | ABEBA [...] | [facility] | | considered for monitoring retirement glycemic control in patients with: | LABORATORY [...] | + + + + + | [facility] | [address] | [place] [address] | | | SERVICES, SPECIAL | PARK [...] | + + + + + | [facility] | [address] | [place] [address] | | | DEANDRE, ROSALIA | ABEBA [...] | | | | | determined by [facility] | | | | | | Laboratories. See | | | | | | Compliance Statement B: | | | | | | Labels That Talk.[employer]/CSPerformed | | | | | | by QCoefficient,500 | | | | | | [facility] | | | | | | [address] | | | | | | [phone].[employer]atingWell[employer]. | | | | | | com, [...] [facility] | [address] | [place], [place] | | | UNIV PTH - INTFC | | [address] | | + + + + + [...] SERVICES, | | | | | | [place] [facility] | | | | | | [...] | | | LABORATORY | | | MAURITIAN | | | SERVICES, | | | [...] MDRD equation recommended by the National | [facility] | | Kidney Disease Education Program. [...] | + + + + + | [facility] | [address] | [place] [address] | | | [facility] | | | | | HEALTH + HEALING | | | | + + + + + documented in this encounter Visit Diagnoses Not on filedocumented in this encounter"
--- OUTSIDE RECORDS SUMMARY | ~2020-03-12 | XMS | Encounter Summary ---
Demographics + + + | Address | [address] | | | [place] [address] | + + + | Home Phone | | + + + | Preferred Language | Unknown | + + + | Marital Status | Single | + + + | Oriental Orthodox Affiliation | Unknown | + + + [...] Team Providers + +------+ + | Care Sewing Machine Attachment Tester Name | Role | Phone | [...]
--- OUTSIDE RECORDS SUMMARY | ~2020-03-12 | XMS | Encounter Summary ---
Demographics + + + | Address | [address] | | | [place] [address] | + + + | Home Phone [...] Team Providers + +------+ + | Care Chain Dyer Name | Role | Phone | + [...] | Pain | Diagnoses | Goyal, | Stereotype Caster Psych | | Review | | Management | Morbid | Cindy, BUNCH BREAKER MACHINE OPERATOR | [facility] [address] | | | | | obesity with | [address] | | | | | BMI of | [address] | Mailcode: | | | | | 45.0-49.9, | [place], [place] | [facility] | | | | | adult (HCC) | [address] | for Health | | | | | Depression, | Phone: | and Healing, | | | | | unspecified | [phone] | Building [address], | | | | | depression | Fax: | 15th Floor | | | | | type | [phone] | [place], [place] | | | | | Hypertension | | [address] | | | | | , | | Phone: | | | | | unspecified | | [phone] | | | | | type | | Fax: | | | | | Obstructive | | [phone] | | | | | sleep apnea [...] 10/25/ | Office | [facility] | Beatriz Sanches | Morbid obesity with | | 2020 | Visit | [address] | Alicia, PhD [address] | BMI of 45.0-49.9, | | | | Mailcode: CH15P | [place], [place] | adult ([facility]) (Primary | | | | Center for Health | [address] | Dx); Depression, | | | | and Healing, | [phone] | unspecified | | | | | | depression type | | | | Floor [facility] [place] | | | | | | [address] | | | | | | [phone] | | | +--------+---------+ + + + [...] a 69 y.o. female who lives in [facility]. wi th her daughter and granddaughter. She was referred for psychological evaluation prior to [facility] surgery. Informed consent and limits of confidentiality were discussed prior to the interview. Please see medical records for previous attempts at weight management. Eating and Dietary Styles: Tiffanie reported she is eating within first hour of waking; eatin g regularly, about 4 times daily, and small portions. She is going to a [employer] support group f or weight management and [...] per week. 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 The [...] She reports her father was an alcoholic. Zoroastrianism was a jeancarlos ce of support and [...] 3. She should continue with following the regional education manager's recommendations, and is encourged to improve her [...] with the patient was approximately 55 minutes cmwd-cs-rfja with the maciel ent, and approximately 15 minutes of administering testing and 1 hour and 20 minutes of non- dfmc-ml-jwgi interpreting and synthesizing results. Beatriz Sanches, PhD [facility] 15TH FLOOR [address] Mailcode: [place] [address] documented in thi s encounter Plan of Treatment Not on filedocumented as of this encounter Procedures + +--------+ + + + | Procedure Name | Priori | Date/Time | Associated Diagnosis | Comments | | | ty | | | | + +--------+ + + + | [place] | Routin | 10/26/2019 | Morbid obesity | | | PSYCHOLOGICAL/NEUROP | e | 1:03 PM | with BMI of | | | SYCHOLOGICAL TEST | | PST | 45.0-49.9, adult | | | QHP; FIRST 30 MIN | | | ([facility]) Depression, | | | | | | unspecified | | | | | | depression type | | + +--------+ + + + | [place] PSYCHOLOGICAL | Routin | 10/26/2019 | Morbid obesity | | | TESTING EVAL QHP; EA | e | 1:03 PM | with BMI of | | | ADDL HOUR | | PST | 45.0-49.9, adult | | | | | | ([facility]) Depression, | | | | | | unspecified | | | | | | depression type | | + +--------+ + + + | [place] PSYCHOLOGICAL | Routin | 10/26/2019 | Morbid obesity | | | TESTING EVAL QHP; | e | 1:03 PM | with BMI of | | | FIRST HOUR | | PST | 45.0-49.9, adult | | | | | | ([facility]) Depression, | | | | | | unspecified | | | | | | depression type | | + +--------+ + + + documented in this encounter Visit Diagnoses + + | Diagnosis | + + | Morbid obesity with BMI of 45.0-49.9, adult ([facility]) - Primary | + + | Depression, unspecified depression type | + + documented in this encounter"
--- OUTSIDE RECORDS SUMMARY | ~2020-03-12 | XMS | Encounter Summary ---
Demographics + + + | Address | [address] | | | [place] [address] | + + + | Home Phone | | + + + | Preferred Language | Unknown | + + + | Marital Status | | + + + | Orthodox Affiliation | 1027 | + + + | Race | Unknown | + + + | Ethnic Group | Unknown | + + + Author + + + | Author | [facility] | | | and Maverick[place] | + + + | Organization | [facility] | | | and [...] Team Providers + +------+ + | Care Metal Fabricator Apprentice Name | Role | Phone | + +------+ + | Marita Albrecht MD | PCP | | + +------+ + Encounter Details +--------+ + + + + | Date | Type | Department | Care Team | Description | +--------+ + + + + | 02/22/ | Hospital | [facility] | Peng Fink MD | | | 2009 | Encounter | [facility] IP | [address] | | | | | [address]IC [address] | [address] [place], | | | | | [place], | [place] [address] | | | | | [place] [address] | | | | | | [phone] | | | +--------+ + + + [...] + + | [facility] [place] | [address] | [place] [address] | [phone] | | CORE LABORATORY (I) | | [...] + + | [facility] | [address] | [place] [address] | [phone] | | CORE LABORATORY (I) | | | | + + + + + | COLETTE FIGUER[facility] | | | | [place] | | | | + + + + + documented in this encounter Visit Diagnoses Not on filedocumented in this encounter"
--- OUTSIDE RECORDS SUMMARY | ~2020-03-12 | XMS | Encounter Summary ---
Demographics + + + | Address | [address] | | | [place] [address] | + + + | Home Phone | | + + + | Preferred Language | Unknown | + + + | Marital Status | | + + + | Church Affiliation | 1027 | + + + | Race | Unknown | + + + | Ethnic Group | Unknown | + + + Author + + + | Author | [facility] | | | and [place]verickana | + + + | Organization | [facility] | | | and [...] Team Providers + +------+ + | Care General Counselor Name | Role | Phone | + [...] | [facility] [place] | [address] | | | | | INTRA MA[address] | [address] | | | | | [address] | [place] | | | | | [place] | [phone] | | | | | [phone] | | | +--------+ + + + [...]
--- OUTSIDE RECORDS SUMMARY | ~2020-03-12 | XMS | Encounter Summary ---
Demographics + + + | Address | [address] | | | [place] [address] | + + + | Home Phone [...] Providers + +------+ + | Care Manager Sql Name | Role | Phone | + [...]
--- OUTSIDE RECORDS SUMMARY | ~2020-03-12 | XMS | Encounter Summary ---
Demographics + + + | Address | [address] | | | [place] [address] | + + + | Home Phone | | + + + | Preferred Language | Unknown | + + + | Marital Status | | + + + | Gnosticist Affiliation | 1027 | + + + | Race | Unknown | + + + | Ethnic Group | Unknown | + + + Author + + + | Author | [facility] | | | and [place]verickana | + + + | Organization | [facility] [...] Team Providers + +------+ + | Care Processor Grain Name | Role | Phone | + [...] | | | left upper | | [address] | | | | | extremity, | | Phone: | | | | | including | | [phone] | | | | | shoulder | | Fax: | | | | | Procedures | | [phone] | | | | | WA EXC TUMOR | | | | | | | SOFT TISSUE | | | | | | | UPPER | | | | | | | ARM/ELBOW | | | | | | | SUBQ 3+CM | | | | | | | WA EXC SKIN | | | | | [...] + + | 11/17/ | Hospital | [facility] | Guille Roldan, | Basal cell carcinoma | | 2016 | Encounter | [facility] | MD [address] | of shoulder, left | | | | [address] [address] | [address] | (Primary Dx); Soft | | | | [address] | [place] | tissue mass | | | | [place] [address] | [address] | | | | | [phone] | [phone] | | | | | | | [...] number, call our answering service at [phone]. Discharge Instructions: After Your Surgery You ve [...] interact with your prescription medicines or other jsio-saq-hxguocq (OTC) drugs. Some pr escription medicines have [...] REPORT CASE: | [facility] | | [id number]: Tiffanie CatalinoKindred Healthcare[facility]ology Report [id number]: | | | Tiffanie Valentin Date of [...] mass or lesion | | | isidentified. Special Procedures Nurse sections are submitted as follows: A1 | [...] - centralareas with | | | hemorrhage. ([facility]/[id number]) Dominique Ordaz M.D. | | | Electronically signed 11/20/2015 19:55 Performed at | | | [facility] [address] | | | CLIA#: [id number] ADDENDUM: #1 FLUORESCENCE IN-SITU HYBRIDIZATION | | | (FISH) STUDIES:Source: Block [id number]: Cells of interest Name | | | [...] | | found to harboramplification of the 67j53-42 region, which includes | | | the [...] is | | | determined and a MDM2/HMX56mchen is calculated for each case. A | [...] 405Extremity-based Tumors. Am J Surg Pathol 2010; 34:3267-8523. | | | Methodology: Fluorescence in situ hybridization (FISH) for MDM2 | | | geneamplification (using MDM2/CEP12 probes and the [employer] | | | Metaferautomated scanning fluorescent microscope) is performed at | | | [place]. [address]. Test results should be used in | | | conjunction with other availablelaboratory and clinical information. | | | This test was developed and itsperformance characteristics determined | | | by the Molecular PathologyLaboratory, [facility] | | | Laboratories. It has [...] Cheryl Ortiz MD. | | | Electronically hirgnd5111/23/2015 16:02 Performed at | | | [facility],[address] [place] [address] [address], [place], | | | [place] [address] CLIA#:[id number]: Unless otherwise | | | specified, a [...] to harbor | | |amplification of the 42u72-82 region, which includes the MDM2 (murine | [...] |Extremity-based Tumors. Am J Surg Pathol 2010; 34:4216-3140. | | | | | |Methodology: Fluorescence in situ hybridization (FISH) for MDM2 gene | | |amplification (using MDM2/CEP12 probes and the [employer] Metafer | | |automated scanning fluorescent microscope) is performed at [facility], | | |[place]. [address]. | | | | | |Test results should be used in conjunction with other available | | |laboratory and clinical information. This test was developed and its | | |performance characteristics determined by the Molecular Pathology | | |Laboratory, [facility]. It has not been approved [...] signed | | |11/23/2015 16:02 Performed at [facility], | | |[address] [place] [address]#: | | |[id number] | | |Microscopic: Unless otherwise specified, a microscopic exam has been performed. | | | | | |Received Date: 11/17/2015 | | |Collection Date: 11/17/2015 | | |Referring Physician: Guille Roldan MD | | |Additional Physician copies: | | + + -------+ + + + + + | Performing | Address | City/State/[facility] | Phone Number | | Organization | | | | + + + + + | REFERENCE LAB | [address] | [place] [address] | [phone] | | [facility] | [address] | | [...]
--- OUTSIDE RECORDS SUMMARY | ~2020-03-12 | XMS | Encounter Summary ---
Demographics + + + | Address | [address] | | | [place] [address] | + + + | Home Phone [...] Author | [facility] | + + + | Organization | [facility] | + + + | Address | Unknown | + + + | Phone | Unavailable | + + + Support + + +---------+ + | Name | Relationship | Address | Phone | + + +---------+ + | Marifer Valentin | ECON | Unknown | | + + +---------+ + Care Team Providers + +------+ + | Care Knitting Demonstrator Name | Role | Phone | + [...] | [facility] | | | with SUPERVISING ARCHITECT | | obesity (BMI | [address] | [address] | | | | | >= 40) | [address] | [address] | | | | | ([facility]) | Rd | Mailcode: | | | | | Procedures | [place], [place] | [place] for | | | | | CONSULT TO | [address] | Health and | | | | | BARIATRIC | Phone: | Healing, | | | | | SURGERY | [phone] | Building [address] | | | | | | Fax: | [place], [place] | | | | | | [phone] | [address] | | | | | | | Phone: | | | | | | | | | | | | | | Fax: | | | | | | | [phone] | + + + + + + [...] | | | (HCC) | Rd | [place], [place] | | | | | Procedures | [facility] [place] | [address] | | | | | CONSULT TO | [address] | Phone: | | | | | CARDIOLOGY | Phone: | [phone] | | | | | | [phone] | Fax: | | | | | | Fax: | [phone] | | | | | | [phone] | | +--------+--------+ + + + + [...] | | | | | Tri | [facility] | | | | | | [place] [address] | Health and | | | | | | Phone: | Healing, | | | | | | [phone] | [address] | | | | | | Fax: | [place], [place] | | | | | | [phone] | [address] | | | | | | | Phone: | | | | | | | [phone] | | | | | | | Fax: | | | | | | | [phone] | +--------+--------+ + + + + Encounter Details +--------+---------+ + + + | Date | Type | Department | Care Team | Description | +--------+---------+ + + + | 06/14/ | Office | [facility]ive [facility] | Marita Hadley, | Hiatal hernia with | | 2019 | Visit | [facility] [address] | MD [address] | GERD (Primary Dx); | | | | [address] | [place], [place] | Severe obesity (BMI | | | | Mailcode: Center | [address] | >= 40) ([facility]) | | | | for Health and | [phone] | | | | | Healing, [address] | | | | | | [place], [place] | | | | | | [address] | | | | | | [phone] | | | +--------+---------+ + + + [...] follow-up with Dr. Hadley in six months. 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 Lives at home with daughter and [...] 20 mg by mouth once daily. Ad it technical specialist 30 to 60 minutes before meals simvastatin [...] with the above plan. Ly Vo MD [facility] Department of Surgery PGY-2 | [id number] STAFF: I saw and evaluated the patient. I agree with the findings and the plan of care as kylie armendariz in the resident s note. Marita Hadley MD [facility] [address] [facility] Mailcode: [place] [address] documented in this encounter Plan of Treatment Not on filedocumented as of this encounter Visit Diagnoses + + | Diagnosis | + + | Hiatal hernia with GERD - Primary | + + | Severe obesity (BMI >= 40) ([facility]) Morbid obesity | + + documented in this encounter
--- OUTSIDE RECORDS SUMMARY | ~2020-03-12 | XMS | Encounter Summary ---
Demographics + + + | Address | [address] | | | [place] [address] | + + + | Home Phone | | + + + | Preferred Language | Unknown | + + + | Marital Status | Single | + + + | Samaritan Affiliation | Unknown | + + + [...] Team Providers + +------+ + | Care Mold Cutting Machine Operator Name | Role | Phone [...]
--- OUTSIDE RECORDS SUMMARY | ~2020-03-12 | XMS | Encounter Summary ---
Demographics + + + | Address | [address] | | | [place] [address] | + + + | Home Phone | | + + + | Preferred Language | Unknown | + + + | Marital Status | | + + + | Episcopalian Affiliation | 1027 | + + + | Race | Unknown | + + + | Ethnic Group | Unknown | + + + Author + + + | Author | [facility] | | | and Maverickana | + + + | Organization | [facility] | | [...] Providers + +------+ + | Care Head Cager Name | Role | Phone | + [...] | [facility] [place] | [address] | | | | | INTRA [address] | [address] | | | | | [address] | [place] | | | | | [place] | [phone] | | | | | [phone] | | | +--------+ + + + [...]
--- OUTSIDE RECORDS SUMMARY | ~2020-03-12 | XMS | Encounter Summary ---
Demographics + + + | Address | [address] | | | [place] [address] | + + + | Home Phone | | + + + | Preferred Language | Unknown | + + + | Marital Status | | + + + | Alevism Affiliation | 1027 | + + + | Race | Unknown | + + + | Ethnic Group | Unknown | + + + Author + + + | Author | [facility] | | | and [place] | + + + | Organization | [facility] | | | and Maverickana [...] Team Providers + +------+ + | Care Sonogram Technician Name | Role | Phone | + +------+ + | Peng Fink MD | PCP | | + +------+ + Encounter Details +--------+---------+ + + + | Date | Type | Department | Care Team | Description | +--------+---------+ + + + | 07/16/ | Surgery | [facility] | Ezra Green MD | EGD | | 2018 | | MED CTR MP INTRA OP | [address] | | | | | [address] | [place], [place] | | | | | [place], [place] | [address] | | | | | [address] | [phone] | | | | | [phone] | | | +--------+---------+ + + + [...] You can't be awakened Date Last Reviewed: 08/09/201619997668-6832 [employer]. [address] [place] [address], [place] [address]. All righ ts reserved. This information is [...] | | | cell metaplasia or dysplasia. [facility]:smn:C2NR GROSS DESCRIPTION: | | | A. [...] | | | interpretation were performed by [facility], [address] | | | [facility] [place] [address] (Boarder Machine: Jonatan Johns | | | Jareth Hamilton; CLIA#: [id number]). Diagnostician: Rene Rothman | | | Glenis IRVIN Pathologist Electronically Signed 07/18/2018 | | + + + + +---------+ + + | Performing | Address | City/State/Zipcode | Phone Number | | Organization | | | | + +---------+ + + | [facility] | | | | | [facility] [...]
--- OUTSIDE RECORDS SUMMARY | ~2020-03-12 | XMS | Encounter Summary ---
Demographics + + + | Address | [address] | | | [place] [address] | + + + | Home Phone | | + + + | Preferred Language | Unknown | + + + | Marital Status | | + + + | Judaism Affiliation | 1027 | + + + | Race | Unknown | + + + | Ethnic Group | Unknown | + + + Author + + + | Author | [facility] | | | and [place] | + + + | Organization | [facility] | | | and [...] Team Providers + +------+ + | Care Wardrobe Supervisor Name | Role | Phone | [...] | | | | | | | [place] CATH | | | | | | | PLACE/CORON | | | | | | | ANGIO, IMG | | | | | | | SUPER/INTERP | | | | | | | ,W LEFT | | | | | | | HEART | | | | | | | VENTRICULOGR | | | | | | | APHY [place] PRQ | | | | | | | TRLUML | | | | | | | CORONARY | | | | | | | STENT | | | | | | | W/ANGIO ONE | | | | | | | ART/BRNCH | | | | | | | [place] PRQ | | | | | | [...] MED CTR CV | MD Janette [address] | CORONARIES/CORONARY | | | | INTRA OP [address] | [place] | INTERVENTION | | | | [place] | [address] | | | | | | [phone] | | | | | [phone] | | | +--------+---------+ + + + [...] Physician Discharge Summary Patient ID: Tiffanie Valentin [id number] y.o. 1950 Admit date: 01/02/2015 Discharge date and time: No discharge date for patient encounter. Admitting Physician: Jozef Hoover MD Discharge Physician: Jozef Hoover MD [facility] Interventional Cardiology [place], [place] Admission Diagnoses: Nonspecific abnormal unspecified cardiovascular [...] present. Please notify your MD and/or your Mobile Heavy Equipment Operator if any of the follo wing [...] + | Jozef Hoover MD 01/02/2015 9:22 [facility] | [facility] | | [facility] CARDIAC CATHETERIZATION REPORT PATIENT | | | NAME: | | | Tiffanie Valentin DATE OF : | | | 1950 MEDICAL | | | RECORD NUMBER: [id number] | | | DATE OF PROCEDURE: | | | 01/02/2015 FACILITY: | | | [facility] | | | [place], [place] | | | | | | PRIMARY CARE PROVIDER: | | | Peng Fink PRIMARY AUTO BODY PAINTER: | | | Jozef Hoover MD [facility] Interventional Cardiology | | | [place], [place] SOLAR ENERGY INSTALLATION MANAGER: | | | Dr. Jozef Hoover MD | | | [facility] PRE-PROCEDURE DIAGNOSIS: | | | abnormal [...] and anesthetized with 1% lidocaine. A 6 bermudian sheath was | | | placed into the right radial artery A 6 bermudian pigtail cathether was | | | advanced into the left ventricle, pressures were measured, and left | | | ventriculography was performed. Standard angiography was performed | | | in multiple views using 6 Hungarian tiger catheter to engage the | | [...] Jozef Siddiqui | | | MD Kiko [facility] Interventional Cardiology [facility] [place] | | | [place], [place] 01/02/2015 9:20 | | + + [...] | | | | 324 mg, Oral, MECHANICAL OPERATOR, Starting | | 15 7:29 | [...] | mLs | | | | Intravenous, MECHANICAL OPERATOR, Starting | | AM PDT | [...]
--- OUTSIDE RECORDS SUMMARY | ~2020-03-12 | XMS | Encounter Summary ---
Demographics + + + | Address | [address] | | | [place] [address] | + + + | Home Phone [...] Team Providers + +------+ + | Care Clean Out Driller Helper Name | Role | Phone [...]
--- OUTSIDE RECORDS SUMMARY | ~2020-03-12 | XMS | Clinical Summary ---
Demographics + + + | Address | [address] | | | [place] [address] | + + + | Home Phone | | + + + | Preferred Language | Unknown | + + + | Marital Status | Single | + + + | Faith Affiliation | Unknown | + + + | Race | White | + + + | Ethnic Group | Not or | + + + Author + + + | Author | [facility] | + + + | Organization | [facility] | + + + | Address | Unknown | + + + | Phone | Unavailable | + + + Support + + +---------+ + | Name | Relationship | Address | Phone | + + +---------+ + | Marifer Valentin | ECON | Unknown | | + + +---------+ + Care Team Providers + +------+ + | Care Spiral Tube Winder Helper Name | Role | Phone | + +------+ + | Stephanie Washington | PCP | | + +------+ + Source Comments NICOLE is fully live on both [facility] and [facility] InPatient.[facility] [...] | MODA | xxxxxxxxx | 10/23/19 | [phone] | [address] | PPO | | | MEDICA | | 20-Pre | 4 | [address] | | | | RE PPO | | sent | | [place], | | | | | | | | [place] [address] | | + +--------+ +--------+ + +------+ + +--------+ +--------+ + + | Guarantor Name | Accoun | Relation to | Date | Phone | Billing Address | | | t Type | Patient | of | | | | | | | | | | + +--------+ +--------+ + + | Tiffanie Valentin | Person | Self | [birth year] | [address] | | | al/Fam | | 1949 | [phone] | [place] | | | fabian | | | 8 (Home) | [address] | + +--------+ +--------+ + +
--- OUTSIDE RECORDS SUMMARY | ~2020-03-12 | XMS | Encounter Summary ---
Demographics + + + | Address | [address] | | | [place] [address] | + + + | Home Phone [...] + | Author | [facility] | | | and [place] | + + + | Organization | [facility] | | [...] Team Providers + +------+ + | Care Touch Up Painter Name | Role | Phone | + [...] [facility] IP | MD [place] | | | | | GENERIC [address] | [address] | | | | | [place], | [phone] | | | | | [place] | | | | | | [phone] | | | +--------+ + + + [...]
--- OUTSIDE RECORDS SUMMARY | ~2020-03-12 | XMS | Encounter Summary ---
Demographics + + + | Address | [address] | | | [place] [address] | + + + | Home Phone | | + + + | Preferred Language | Unknown | + + + | Marital Status | Single | + + + | Gnosticist Affiliation | Unknown | + + + | Race | White | + + + | Ethnic Group | Not or | + + + Author + + + | Author | [facility] | + + + | Organization | [facility] | + + + | Address | Unknown | + + + | Phone | Unavailable | + + + Support + + +---------+ + | Name | Relationship | Address | Phone | + + +---------+ + | Marifer Valentin | ECON | Unknown | | + + +---------+ + Care Team Providers + +------+ + | Care Assistant Professor Of Communication Name | Role | Phone | + +------+ + PCP | Unavailable | + +------+ + Encounter Details +--------+ + + + + | Date | Type | Department | Care Team | Description | +--------+ + + + + | 11/30/ | Abstract | Digestive Health | Clinic, Surgery | | | 2019 | | [place] at [facility] [address] | | | | | | [address] | | | | | | Mailcode: [place] | | | | | | [facility] | | | | | | Healing, Building [address] | | | | | | [place], [place] | | | | | | [address] | | | | | | [phone] | | | +--------+ + + + [...]
--- OUTSIDE RECORDS SUMMARY | ~2020-03-12 | XMS | Encounter Summary ---
Demographics + + + | Address | [address] | | | [place] [address] | + + + | Home Phone [...] Team Providers + +------+ + | Care Offset Printer Name | Role | Phone | + +------+ + | Stephanie Washington | PCP | | + +------+ + Reason for Referral Physical Therapy (Routine) + +--------+ + + + + | Status | Reason | Specialty | Diagnoses / | Referred By | Referred To | | | | | Procedures | Contact | Contact | + +--------+ + + + + | New Request | | Physical | Diagnoses | Jay Jay | [facility] | | | | Therapy | Severe | [place] [facility] | [address] | | | | | obesity (BMI | [address] | | | | | >= 40) | [address] | Mailcode: | | | | | ([facility]) | [place], [place] | Center for | | | | | Procedures | [address] | Health and | | | | | PHYSICAL | Phone: | Healing, | | | | | THERAPY | [phone] | Building 2 | | | | | REFERRAL | Fax: | [place], [place] | | | | | | [phone] | [address] Phone: | | | | | | | [phone] | | | | | | | Fax: | | | | | | | [phone] | + +--------+ + + + + Encounter Details +--------+ + + + + | Date | Type | Department | Care Team | Description | +--------+ + + + + | 07/08/ | Reinsurance Claims Analyst | Digestive Health | Cindy Goyal, | Severe obesity (BMI | | 2019 | | Center at [facility] [address] | FORMING OPERATOR [address] | >= 40) ([facility]) | | | | [address] | [place], [place] | (Primary Dx) | | | | Mailcode: [place] | [address] | | | | | for Health and | [phone] | | | | | [facility] 2 | | | | | | [place], [place] | | | | | | [address] | | | | | | | [...] obesity | + + documented in this encounter"
--- OUTSIDE RECORDS SUMMARY | ~2020-03-12 | XMS | Encounter Summary ---
Demographics + + + | Address | [address] | | | [place] [address] | + + + | Home Phone [...] Author + + + | Author | [facility] | + + + | Organization | [facility] | + + + | Address | Unknown | + + + | Phone | Unavailable | + + + Support + + +---------+ + | Name | Relationship | Address | Phone | + + +---------+ + | Marifer Valentin | ECON | Unknown | | + + +---------+ + Care Team Providers + +------+ + | Care Shift Leader Name | Role | Phone | + +------+ + PCP | Unavailable | + +------+ + Encounter Details +--------+ + + + + | Date | Type | Department | Care Team | Description | +--------+ + + + + | 12/12/ | Director Software Quality Assurance | Digestive Health | Marita Hadley, | Hiatal hernia with | | 2019 | | Center at [facility] [address] | MD [address] | GERD and esophagitis | | | | [address] | [place], [place] | (Primary Dx) | | | | Mailcode: [place] | [address] | | | | | for Health and | [phone] | | | | | [facility], [facility] 2 | | | | | | [place], [place] | | | | | | [address] | | | | | | [phone] | | | +--------+ + + + [...] + + + | EXAM: Esophagram with industrial maintenance technician radiograph HISTORY: Hiatal hernia | [facility] | [...] 06/14/2019 2:38 PM Preliminary: | | | Terna Solano MD Dictation initiated: Trena Solano MD | | | 06/14/2019 2:36 PM | | + + + + + | Procedure Note | + + | Service Account, [employer] Res In Interface - 06/14/2019 2:39 PM PDT EXAM: Esophagram | | with industrial maintenance technician radiograph HISTORY: Hiatal hernia with GERD COMPARISON: [...] report as now presented. Final signature: Trena Solnao MD 06/14/2019 | | 2:38 PM Preliminary: [...]
--- OUTSIDE RECORDS SUMMARY | ~2020-03-12 | XMS | Encounter Summary ---
Demographics + + + | Address | [address] | | | [place] [address] | + + + | Home Phone | | + + + | Preferred Language | Unknown | + + + | Marital Status | | + + + | Restorationist Affiliation | 1027 | + + + | Race | Unknown | + + + | Ethnic Group | Unknown | + + + Author + + + | Author | [facility] | | | and [place] | + + + | Organization | [facility] | | | and [...] Team Providers + +------+ + | Care Tire Worker Name | Role | Phone | [...] | [facility] IP | [address] | | | | | GENERIC [address] | [address] | | | | | [place], | [phone] | | | | | [place] [id number] | | | | | | [phone] | | | +--------+ + + + [...]
--- OUTSIDE RECORDS SUMMARY | ~2020-03-12 | XMS | Encounter Summary ---
Demographics + + + | Address | [address] | | | [place] [address] | + + + | Home Phone | | + + + | Preferred Language | Unknown | + + + | Marital Status | Single | + + + | Holiness Affiliation | Unknown | + + + [...] Team Providers + +------+ + | Care Exceptional Children Teacher Name | Role | Phone | + +------+ + | Stephanie Washington | PCP | | + +------+ + Encounter Details +--------+ + + + + | Date | Type | Department | Care Team | Description | +--------+ + + + + | 07/08/ | Documentati | Digestive Health | Clinic, Surgery | | | 2019 | on | Center at [facility] [address] | | | | | | [address] | | | | | | Mailcode: [place] | | | | | | for Health and | | | | | | Healing, Building 2 | | | | | | [place], [place] | | | | | | [address] | | | | | | [phone] | | | +--------+ + + + [...]
--- OUTSIDE RECORDS SUMMARY | ~2020-03-12 | XMS | Encounter Summary ---
Demographics + + + | Address | [address] | | | [place] [address] | + + + | Home Phone [...] Author + + + | Author | [facility] | + + + | Organization | [facility] | + + + | Address | Unknown | + + + | Phone | Unavailable | + + + Support + + +---------+ + | Name | Relationship | Address | Phone | + + +---------+ + | Marifer Valentin | ECON | Unknown | | + + +---------+ + Care Team Providers + +------+ + | Care Administrative Medical Director Name | Role | Phone | [...] | | Hernia, | Stephanie Lam, | [facility] [address] | | | | | hiatal | [place] [address] | | | | | | [place] | Mailcode: | | | | | | [place], | [facility] | | | | | | [place] [address] | [facility] and | | | | | | Phone: | Healing, | | | | | | [phone] | Building 2 | | | | | | Fax: | [place], [place] | | | | | | [phone] | [address] | | | | | | | Phone: | | | | | | | [phone] | | | | | | | Fax: | | | | | | | [phone] | +--------+--------+ + + + + Encounter Details +--------+---------+ + + + | Date | Type | Department | Care Team | Description | +--------+---------+ + + + | 08/19/ | Office | [facility] Physical | Emily Joyner, | Severe obesity (HCC) | | 2019 | Visit | Therapy Services at | PT,DPT [address] | (Primary Dx) | | | | [facility] | [address] | | | | | [address] | [place], [place] | | | | | Mailcode: [facility] | [address] | | | | | [facility] | | | | | | and Benjamin, | | | | | | [facility] [address] | | | | | | Floor [place], [place] | | | | | | [address] | | | | | | [phone] | | | +--------+---------+ + + + [...] care for t he certification period documented. [facility] PHYSICAL THERAPY EVALUATION Past Medical History: Diagnosis [...] Moderate - Moderate complexity Complexity: Moderate - 37957 The patient requires services that can be [...] change in their status. Emily Joyner, PT,DPT [facility] PHYSICAL THERAPY SERVICES AT [facility] Scheduled Appointment time: 2:30 PM The patient was seen for a total of 45 minutes of treatment time. 45 minutes was in direct contact care as described above and on completed flow sheets. Treatment Interventions duration in minutes: Procedure:Physical Therapy Evaluation and Ther apeutic Activities 15 min Authorization information for first visit and progress reports Procedure Codes: Re-evaluation 22999, Therapeutic Exercise 86550, Manual Therapy 78665, Th erapeutic Activities 88781, Neuromuscular Reeducation 30300, Gait Training 43526 and Self-ca re ADL 57281 Minutes per session: 45 Total number of visits: 1 visit only Frequency: 1 visit only Duration: n/a (must exceed or match Medicare service period reques t) Service period from: 08/19/2019 to: 08/19/2019 (Medicare must match duration or be no gre ater than 90 days if proposed duration is greater than 3 months) Start of care: 08/19/2019 Referral information Authorizing Provider: ANGELI BARRERA [[id number]] Onset/Referral Date: 07/08/19 Primary/Referral Diagnosis: E66.01 Severe [...] | + +--------+ + + + | ME THERAPEUTIC | Routin | 08/19/2019 | Severe obesity | | | ACTIVITIES | e | 3:39 PM | ([facility]) | | | | | PDT | | | + +--------+ + + + documented in this encounter Visit Diagnoses + + | Diagnosis | + + | Severe obesity (HCC) - Primary Morbid obesity | + + documented in this encounter
--- OUTSIDE RECORDS SUMMARY | ~2020-03-12 | XMS | Encounter Summary ---
Demographics + + + | Address | [address] | | | [place] [address] | + + + | Home Phone | | + + + | Preferred Language | Unknown | + + + | Marital Status | | + + + | Hinduism Affiliation | 1027 | + + + | Race | Unknown | + + + | Ethnic Group | Unknown | + + + Author + + + | Author | [facility] | | | and [place] | + + + | Organization | [facility] | | | and [...] Team Providers + +------+ + | Care Wire Straightening Machine Operator Name | Role | Phone | + +------+ + | Peng Fink MD | PCP | | + +------+ + Encounter Details +--------+ + + + + | Date | Type | Department | Care Team | Description | +--------+ + + + + | 07/16/ | [facility] | [facility] | Ezra Green MD | | | 2018 | Encounter | MED CTR MP INTRA OP | [address] | | | | | [address] | [place], [place] | | | | | [place], [place] | [address] | | | | | [address] | [phone] | | | | | [phone] | | | +--------+ + + + [...] You can't be awakened Date Last Reviewed: 08/09/201619996707-3244 [employer]. [address] [place] [address], [place] [address]. All righ ts reserved. This information is [...] | | | cell metaplasia or dysplasia. [facility]:smn:C2NR GROSS DESCRIPTION: | | | A. [...] | | | interpretation were performed by [place], [address] | | | [place] [address] (Tube Molder Fiberglass: Jonatan Johns | | | Jareth Hamilton; [place]#: [id number]). Diagnostician: Rene Rothman | | | [place] [...]
--- OUTSIDE RECORDS SUMMARY | ~2020-03-12 | XMS | Encounter Summary ---
Demographics + + + | Address | [address] | | | [place] [address] | + + + | Home Phone [...] Team Providers + +------+ + | Care Website Programmer Name | Role | Phone | + +------+ + | Stephanie Washington | PCP | | + +------+ + Encounter Details +--------+ + + + + | Date | Type | Department | Care Team | Description | +--------+ + + + + | 07/10/ | Abstract | Digestive Health | Clinic, Surgery | | | 2019 | | [place] at [facility] [address] | | | | | | [address] | | | | | | Mailcode: [place] | | | | | | for Health and | | | | | | Healing, Building [address] | | | | | | [place], [place] | | | | | | [address] | | | | | | [phone] | | | +--------+ + + + [...]
--- OUTSIDE RECORDS SUMMARY | ~2020-03-12 | XMS | Encounter Summary ---
Demographics + + + | Address | [address] | | | [place] [address] | + + + | Home Phone | | + + + | Preferred Language | Unknown | + + + | Marital Status | Single | + + + | Roman Catholic Affiliation | Unknown | + + + | Race | White | + + + | Ethnic Group | Not or | + + + Author + + + | Author | [facility] | + + + | Organization | [facility] | + + + | Address | Unknown | + + + | Phone | Unavailable | + + + Support + + +---------+ + | Name | Relationship | Address | Phone | + + +---------+ + | Marifer Valentin | ECON | Unknown | | + + +---------+ + Care Team Providers + +------+ + | Care Waterworks Employee Name | Role | Phone | + [...] | 2018 | Visit | Center at [facility] [address] | | BMI of 45.0-49.9, | | | [address] | | adult (HCC) (Primary | | | | Mailcode: Center | | Dx) | | | | for Health and | | | | | | [facility] 2 | | | | | | [place], [place] | | | | | | [address] | | | | | | [phone] | | | +--------+---------+ + + + [...] . Documented Time of Class: 60 minutes [id number] with patient OBJECTIVE: Height: Ht Readings from [...] Shoshana Paniagua, MS, RDN, CSOWM, LD, CDE [facility] Bariatrics [phone] documented in this e ncounter Plan of Treatment Not on filedocumented as of this encounter Visit Diagnoses + + | Diagnosis | + + | Morbid obesity with BMI of 45.0-49.9, adult (HCC) - Primary | + + documented in this encounter
--- OUTSIDE RECORDS SUMMARY | ~2020-03-12 | XMS | Encounter Summary ---
Demographics + + + | Address | [address] | | | [place] [address] | + + + | Home Phone | | + + + | Preferred Language | Unknown | + + + | Marital Status | Single | + + + | Rastafari Affiliation | Unknown | + + + [...] Providers + +------+ + | Care Slasher Tender Helper Name | Role | Phone [...]
--- OUTSIDE RECORDS SUMMARY | ~2020-03-12 | XMS | Encounter Summary ---
Demographics + + + | Address | [address] | | | [place] [address] | + + + | Home Phone [...] Author + + + | Author | [facility] | + + + | Organization | [facility] | + + + | Address | Unknown | + + + | Phone | Unavailable | + + + Support + + +---------+ + | Name | Relationship | Address | Phone | + + +---------+ + | Marifer Valentin | ECON | Unknown | | + + +---------+ + Care Team Providers + +------+ + | Care Patient Relations Coordinator Name | Role | Phone | [...] Medical Records | | 2019 | | [place] [facility] [address] | [address] | Review | | | | [address] | [place], [place] | | | | | Mailcode: [place] | [address] | | | | | for Health and | [phone] | | | | | [facility] 2 | | | | | | [place], [place] | | | | | | [address] | | | | | | [phone] | | | +--------+ + + + [...]
--- OUTSIDE RECORDS SUMMARY | ~2020-03-12 | XMS | Encounter Summary ---
Demographics + + + | Address | [address] | | | [place] [address] | + + + | Home Phone [...] Author + + + | Author | [facility] | + + + | Organization | [facility] | + + + | Address | Unknown | + + + | Phone | Unavailable | + + + Support + + +---------+ + | Name | Relationship | Address | Phone | + + +---------+ + | Marifer Valentin | ECON | Unknown | | + + +---------+ + Care Team Providers + +------+ + | Care Jewelry Repairer Name | Role | Phone | [...] | | | | | [place], | | | | | | [place] [address] | | | +--------+ + + + [...]
--- OUTSIDE RECORDS SUMMARY | ~2020-03-12 | XMS | Encounter Summary ---
Demographics + + + | Address | [address] | | | [place] [address] | + + + | Home Phone [...] Team Providers + +------+ + | Care M48 M60 Armor Crewman Name | Role | Phone | + +------+ + | Stephanie Washington | PCP | | + +------+ + Encounter Details +--------+ + + + + | Date | Type | Department | Care Team | Description | +--------+ + + + + | 07/10/ | Abstract | Digestive Health | Clinic, Surgery | | | 2019 | | [place] at [facility] [address] | | | | | | [address] | | | | | | Mailcode: [place] | | | | | | for Health and | | | | | | Healing, [address] | | | | | | [place], [place] | | | | | | [address] | | | | | | [phone] | | | +--------+ + + + [...]
--- OUTSIDE RECORDS SUMMARY | ~2020-03-12 | XMS | Encounter Summary ---
Demographics + + + | Address | [address] | | | [place] [address] | + + + | Home Phone [...] Organization | [facility] | [...] Team Providers + +------+ + | Care Slot Tag Inserter Name | Role | Phone | + [...] | | | | | | [place] [address] | | | | | | [phone] | | | +--------+ + + + [...]
--- OUTSIDE RECORDS SUMMARY | ~2020-03-12 | XMS | Encounter Summary ---
Demographics + + + | Address | [address] | | | [place] [address] | + + + | Home Phone | | + + + | Preferred Language | Unknown | + + + | Marital Status | Single | + + + | Evangelical Affiliation | Unknown | + + + | Race | White | + + + | Ethnic Group | Not or | + + + Author + + + | Author | [facility] | + + + | Organization | [facility] | + + + | Address | Unknown | + + + | Phone | Unavailable | + + + Support + + +---------+ + | Name | Relationship | Address | Phone | + + +---------+ + | Marifer Valentin | ECON | Unknown | | + + +---------+ + Care Team Providers + +------+ + | Care Senior Developer Name | Role | Phone | [...] Bill | | | | | | [place], [place] | | | | | | [address] | | | | | | [phone] | | | +--------+------+ + + + [...] results section. | | | | | (RALPH H. [...] results section. | | | | | (RALPH H. [...] B: | | | | | | StreamOcean/CSPerformed | | | | | | by Promon,[address] | | | | | | [facility],[place] | | | | | | [address] | | | | | | [phone].BoardVitals. | | | | | | [facility] center[facility] MD, | | | | | | [...] [facility] | [address] | [place], [place] | | | UNIV PTH - INTFC | | [address] | | + + + + + [...] [facility] | | | (ROC ALEXIS) | Promon,500 | | REG UNIV | | | SERUM | [place] Soria, [facility],[place] | | PTH - INTFC | | | | [address] | | | | | | [phone].TapRoot Systemslab. | | | | | | Jeffrey [...] B: | | | | | | BoardVitals.OnRamp Digital/CS | | | | + + + + + + + + | Specimen | + + | Blood - Blood | | (substance) | + + + + + + + | Performing | Address | City/State/Zipcode | Phone Number | | Organization | | | | + + + + + | [facility] | [address] | [place], [place] | | | UNIV PTH - INTFC | | [address] | | + + + + + [...] | + + + + + | [facility] | [address] | [place] [address] | | | SERVICES, CORE | ABEBA [...] | + + + + + | [facility] | [address] [facility] | [place] [address] | | | DEANDRE, ROSALIA | ABEBA [...] | | | | | determined by [employer] | | | | | | Laboratories. See | | | | | | Compliance Statement B: | | | | | | BoardVitals.OnRamp Digital/CSPerformed | | | | | | by Promon,500 | | | | | | [facility],[place] | | | | | | [address] | | | | | | [phone].BoardVitals. | | | | | | com, [...] + | [facility] | [address] [facility] | [place], [place] | | | UNIV PTH - INTFC | | [address] | | + + + + + [...] INTFC | | | | determined by [employer] | | | | | | Uncovet. See | | | | | | Compliance Statement B: | | | | | | StreamOcean/CSPerformed | | | | | | by Promon,500 | | | | | | [place], [place] | | | | | | [address] | | | | | | [phone].Advise Onlylab. | | | | | | Jeffrey [...] [facility] | [address] | [place], [place] | | | UNIV PTH - INTFC | | [address] | | + + + + + [...] | + + + + + | [facility] | [address] | [place] [address] | | | SERVICES, [place] [facility] | | | | | HEALTH [...] | | | | | determined by [employer] | | | | | | Uncovet. See | | | | | | Compliance Statement B: | | | | | | BoardVitals.OnRamp Digital/CSPerformed | | | | | | by Promon,500 | | | | | | [facility],[place] | | | | | | [address] | | | | | | [phone].BoardVitals. | | | | | | [facility] centerJeffrey MD, | | | | | | [...] [facility] | [address] | [place], [place] | | | UNIV PTH - INTFC | | [address] | | + + + + + [...] [facility] | [address] | [place] [address] | | | SERVICES, CORE | PARK [...] [facility] | [address] | [place] [address] | | | SERVICES, CORE | PARK [...] | + + + + + | [facility] | [address] | [place] [address] | | | SERVICES, SPECIAL | ABEBA [...] | [facility] | | considered for monitoring senior care glycemic control in patients with: | LABORATORY [...] | + + + + + | [facility] | [address] | [place] [address] | | | SERVICES, SPECIAL | PARK [...] | + + + + + | [facility] | [address] | [place] [address] | | | DEANDRE, ROSALIA | ABEBA [...] | | | | | determined by [facility] | | | | | | Laboratories. See | | | | | | Compliance Statement B: | | | | | | BoardVitals.OnRamp Digital/CSPerformed | | | | | | by Promon,500 | | | | | | Jamie [facility],[place] | | | | | | [address] | | | | | | [phone].TapRoot Systemslab. | | | | | | com, [...] [facility] | [address] | [place], [place] | | | UNIV PTH - INTFC | | [address] | | + + + + + [...] SERVICES, | | | | | | [place] [facility] | | | | | | [...] | | | LABORATORY | | | MALDIVIAN | | | SERVICES, | | | [...] MDRD equation recommended by the National | [facility] | | Kidney Disease Education Program. [...] | + + + + + | [facility] | [address] | [place] [address] | | | [facility] | | | | | HEALTH + HEALING | | | | + + + + + documented in this encounter Visit Diagnoses Not on filedocumented in this encounter"
--- OUTSIDE RECORDS SUMMARY | ~2020-03-12 | XMS | Encounter Summary ---
Demographics + + + | Address | [address] | | | [place] [address] | + + + | Home Phone [...] Team Providers + +------+ + | Care Charter Boat Operator Name | Role | Phone | [...]
--- OUTSIDE RECORDS SUMMARY | ~2020-03-12 | XMS | Encounter Summary ---
Demographics + + + | Address | [address] | | | [place] [address] | + + + | Home Phone | | + + + | Preferred Language | Unknown | + + + | Marital Status | Single | + + + | Hindu Affiliation | Unknown | + + + [...] Team Providers + +------+ + | Care Database Programmer Name | Role | Phone | [...] Medical Records | | 2019 | | [place] [facility] [address] | [address] | Review | | | | [address] | [place], [place] | | | | | Mailcode: [place] | [address] | | | | | for Health and | [phone] | | | | | [facility] 2 | | | | | | [place], [place] | | | | | | [address] | | | | | | [phone] | | | +--------+ + + + [...]
--- OUTSIDE RECORDS SUMMARY | ~2020-03-12 | XMS | Encounter Summary ---
Demographics + + + | Address | [address] | | | [place] [address] | + + + | Home Phone [...] Team Providers + +------+ + | Care Flexo Operator Name | Role | Phone | [...] | [facility] | | | with MACHINIST MECHANIC | | obesity (BMI | [address] | [address] | | | | | >= 40) | [address] | [address] | | | | | ([facility]) | Rd | Mailcode: | | | | | Procedures | [place], [place] | [place] for | | | | | CONSULT TO | [address] | Health and | | | | | BARIATRIC | Phone: | Healing, | | | | | SURGERY | [phone] | Building [address] | | | | | | Fax: | [place], [place] | | | | | | [phone] | [address] | | | | | | | Phone: | | | | | | | | | | | | | | Fax: | | | | | | | [phone] | + + + + + + [...] | | | (HCC) | Rd | [place], [place] | | | | | Procedures | [facility] [place] | [address] | | | | | CONSULT TO | [address] | Phone: | | | | | CARDIOLOGY | Phone: | [phone] | | | | | | [phone] | Fax: | | | | | | Fax: | [phone] | | | | | | [phone] | | +--------+--------+ + + + + [...] | | | | | Tri | [facility] | | | | | | [place] [address] | Health and | | | | | | Phone: | Healing, | | | | | | [phone] | Building [address] | | | | | | Fax: | [place], [place] | | | | | | [phone] | [address] | | | | | | | Phone: | | | | | | | [phone] | | | | | | | Fax: | | | | | | | [phone] | +--------+--------+ + + + + Encounter Details +--------+---------+ + + + | Date | Type | Department | Care Team | Description | +--------+---------+ + + + | 06/14/ | Office | Digestive Health | Marita Hadley, | Hiatal hernia with | | 2019 | Visit | Center at [facility] [address] | MD [address] | GERD (Primary Dx); | | | | [address] | [place], [place] | Severe obesity (BMI | | | | Mailcode: Center | [address] | >= 40) ([facility]) | | | | for Health and | [phone] | | | | | Healing, Building [address] | | | | | | [place], [place] | | | | | | [address] | | | | | | [phone] | | | +--------+---------+ + + + [...] follow-up with Dr. Hadley in six months. [facility] Foregut and Bariatric Surgery ClinicElectronically signed by Ly Vo MD at 06/14 4:49 PM PDT documented in this encounter Progress Notes Ly Vo MD - 06/14/2019 2:50 PM PDT [facility] Department of Surgery Red Surgery Clinic Note [...] Family History: Reviewed, notable for history of PA in father. 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 Lives at home with daughter and [...] 20 mg by mouth once daily. Ad warrant clerk 30 to 60 minutes before meals simvastatin [...] with the above plan. Ly Vo MD [facility] Department of Surgery PGY-2 | [id number] STAFF: I saw and evaluated the patient. I agree with the findings and the plan of care as kylie armendariz in the resident s note. Marita Hadley MD [facility] [address] [facility] Mailcode: [place] [address] documented in this encounter Plan of Treatment Not on filedocumented as of this encounter Visit Diagnoses + + | Diagnosis | + + | Hiatal hernia with GERD - Primary | + + | Severe obesity (BMI >= 40) ([facility]) Morbid obesity | + + documented in this encounter
--- OUTSIDE RECORDS SUMMARY | ~2020-03-12 | XMS | Encounter Summary ---
Demographics + + + | Address | [address] | | | [place] [address] | + + + | Home Phone | | + + + | Preferred Language | Unknown | + + + | Marital Status | Single | + + + | Orthodox Affiliation | Unknown | + + [...] Team Providers + +------+ + | Care Cotton Machine Operator Name | Role | Phone [...] Medical Records | | 2019 | | [place] [facility] [address] | [address] | Review | | | | [address] | [place], [place] | | | | | Mailcode: [place] | [address] | | | | | for Health and | [phone] | | | | | [facility] 2 | | | | | | [place], [place] | | | | | | [address] | | | | | | [phone] | | | +--------+ + + + [...]
--- OUTSIDE RECORDS SUMMARY | ~2020-03-12 | XMS | Encounter Summary ---
Demographics + + + | Address | [address] | | | [place] [address] | + + + | Home Phone [...] Organization | [facility] | | | and [...] Team Providers + +------+ + | Care Junior Analyst Name | Role | Phone | [...] | [facility] | [address] | | | | | [address] | [address] | | | | | [place], | [place] [address] | | | | | [place] [address] | [phone] | | | | | [phone] | | | +--------+ + + + [...]
--- OUTSIDE RECORDS SUMMARY | ~2020-03-12 | XMS | Encounter Summary ---
Demographics + + + | Address | [address] | | | [place] [address] | + + + | Home Phone | | + + + | Preferred Language | Unknown | + + + | Marital Status | | + + + | Evangelical Affiliation | 1027 | + + + | Race | Unknown | + + + | Ethnic Group | Unknown | + + + Author + + + | Author | [facility] | | | and [place] | + + + | Organization | [facility] | | | and [...] Team Providers + +------+ + | Care Pulp Making Plant Operator Name | Role | Phone | [...] | | | | | [address] | [place] | | | | | [place] | [address] | | | | | [address] | | | | | | [phone] | | | +--------+ + + + [...] 07/16/18 1640 by | | jayl | vqng-rpo-vspzaj catheter system; | Mary Carmen Smith, | [...]
--- OUTSIDE RECORDS SUMMARY | ~2020-03-12 | XMS | Encounter Summary ---
Demographics + + + | Address | [address] | | | [place] [address] | + + + | Home Phone [...] | Organization | [facility] | | [...] Providers + +------+ + | Care General Lithographic Worker Name | Role | Phone | [...] | | | | [place] | [phone] | (Primary Dx) | | | | [address] | | | | | | [phone] | | | +--------+---------+ + + + [...] of your lunch hour to take a sifonr. Walk to the [employer] to get your paper instead of having [...] start an exercise mirna m. Have a direct sales professional help you develop a plan that s safe for you. 3416-4591 [employer]. [address] [place] [address]. All righ ts reserved. This information is [...] made to ensure accuracy. However, inadvertent computerized head of strategy errors may be pr esent. documented in [...]
--- OUTSIDE RECORDS SUMMARY | ~2020-03-12 | XMS | Encounter Summary ---
Demographics + + + | Address | [address] | | | [place] [address] | + + + | Home Phone [...] + | Organization | [facility] | | | and [...] Team Providers + +------+ + | Care Sustainability Purchasing Agent Name | Role | Phone | [...] [facility] | [address] [facility] [address] | | | | | GENERIC [address] | [address] | | | | | [place], | [address] | | | | | [place] [address] | | | | | | [phone] | | | +--------+ + + + [...]
--- OUTSIDE RECORDS SUMMARY | ~2020-03-12 | XMS | Encounter Summary ---
Demographics + + + | Address | [address] | | | [place] [address] | + + + | Home Phone [...] Team Providers + +------+ + | Care Hedis Manager Name | Role | Phone | [...] | | | | | | | [place], [place] | | | | | | | [address] | | | | | | | Phone: | | | | | | | [phone] | | | | | | | Fax: | | | | | | | [phone] | + +--------+ + + + + Encounter Details +--------+---------+ + + + | Date | Type | Department | Care Team | Description | +--------+---------+ + + + | 12/20/ | Office | Digestive Health | Marita Hadley, | Gastroesophageal | | 2020 | Visit | Center at [facility] [address] | MD [address] | reflux disease, | | | [address] | [place], [place] | esophagitis presence | | | | Mailcode: Center | [address] | not specified | | | | for Health and | [phone] | (Primary Dx); Morbid | | | | [facility] 2 | | obesity with BMI of | | | | [place], [place] | | 45.0-49.9, adult | | | | [address] | | ([facility]) | | | | [phone] | | | +--------+---------+ + + + [...] Name: Tiffanie Valentin : 1950 Medical Record: [id number] ID: Tiffanie Valentin is a 69-year-old female [...] file Gets together: Not on file Attends anglican service: Not on file Active member of club or organization: Not on file Attends meetings of clubs or organizations: Not on file Relationship status: Not on file Other Topics Concern Not on file Social History Narrative 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 Lives at home with daughter an [...] note. Marita Hadley MD [facility] AT [facility] [address] [facility] Mailcode: [place] [address] documented in this encounter Plan of Treatment Not on filedocumented as of this encounter Visit Diagnoses + + | Diagnosis | + + | Gastroesophageal reflux disease, esophagitis presence not specified - Primary | + + | Morbid obesity with BMI of 45.0-49.9, adult ([facility]) | + + documented in this encounter
--- OUTSIDE RECORDS SUMMARY | ~2020-03-12 | XMS | Encounter Summary ---
Demographics + + + | Address | [address] | | | [place] [address] | + + + | Home Phone [...] Team Providers + +------+ + | Care Installation Engineer Name | Role | Phone | [...] | 2019 | Visit | Center at [facility] [address] | | BMI of 45.0-49.9, | | | [address] | | adult (HCC) (Primary | | | | Mailcode: Center | | Dx) | | | | for Health and | | | | | | [facility] 2 | | | | | | [place], [place] | | | | | | [address] | | | | | | [phone] | | | +--------+---------+ + + + [...] Gastrectomy. Documented Time of Class: 60 minutes fodn-rr-witv with patient OBJECTIVE: Ht Readings from Last [...] Shoshana Paniagua, MS, RDN, CSOWM, LD, CDE [facility] Bariatrics [phone] documented in this e ncounter Plan of Treatment Not on filedocumented as of this encounter Visit Diagnoses + + | Diagnosis | + + | Morbid obesity with BMI of 45.0-49.9, adult (HCC) - Primary | + + documented in this encounter
--- OUTSIDE RECORDS SUMMARY | ~2020-03-12 | XMS | Encounter Summary ---
Demographics + + + | Address | [address] | | | [place] [address] | + + + | Home Phone [...] Organization | [facility] | | | and [...] Team Providers + +------+ + | Care Group Counselor Name | Role | Phone | [...] | | | | | [address] | [place] | | | | | [place] | [address] | | | | | [address] | | | | | | [phone] | | | +--------+ + + + [...] 07/16/18 1640 by | | jayl | rlde-hxg-xhdgow catheter system; | Mary Carmen Smith, | [...]
--- OUTSIDE RECORDS SUMMARY | ~2020-03-12 | XMS | Encounter Summary ---
Demographics + + + | Address | [address] | | | [place] [address] | + + + | Home Phone | | + + + | Preferred Language | Unknown | + + + | Marital Status | | + + + | Cheondoism Affiliation | 1027 | + + + | Race | Unknown | + + + | Ethnic Group | Unknown | + + + Author + + + | Author | [facility] | | | and [place] | + + + | Organization | [facility] | | | and [...] Providers + +------+ + | Care Legal Records Manager Name | Role | Phone | + +------+ + | Peng Fnik MD | PCP | | + +------+ [...] [place] | | | | | [place] | | [address] | | | | | [place] | | Phone: | | | | | 2.1-3CM | | [phone] | | | | | TRUNK,ARM,LE | | Fax: | | | | | G [place] SPLIT | | [phone] | | | | | GRFT | [...] | | | | | [facility] [address] [place] | [address] [place], | | | | | [address] | [place] [address] | | | | | [place] | [phone] | | | | | [phone] | | | +--------+ + + + [...] CORONARIES/CORONARY INTERVENTION; Surgeon: Jozef Hoover MD; Location: [facility] CARDIOVASCULAR LAB Carpal tunnel release Left 11/19/2007 Dr. Trey Morrell Carpal tunnel release Right 10/04/2007 Dr. Trey Morrell Eye surgery Bilateral cataracts with lens implant Skin full graft Right 10/07/2015 Procedure: EXCISION OF RIGHT UPPER BACK BASAL CELL CARCINOMA; Surgeon: Sundeep Lee MD; Location: [facility] [place] ALLERGIES: Review of patient's allergies indicates no [...] appointment: Appointment with Dr. Lee at the [facility] in the [facility] in 1 week as scheduled. Activity: No [...] up: Follow-up with Dr. Lee at the [facility], 2nd Floor on 10/13 at 8:00am. Please [...] number, call our answering service at ( [phone]. You have received sedation / an anesthetic today. DO NOT drive a vehicle, use alcoholic joseph erages, sign legal documents, take public transportation alone or care for a dependent perso n for the next 24 hours.:[id number]} documented in this encounter Medications at Time [...] | | 65Date of : 1950 CASE: [id number]: Tiffanie | CELLNETI X | | [facility] [id number]: Tiffanie Valentin | | | Date of [...] scar is 0.9cm from the deep margin. It Project Lead | | | sections are submitted asfollows: A1 - tips; A2-A8 - entire lesion | | | blocked out. (pam/[id number]) Jackson Vivar M.D. Electronically | | | signed 10/09/2015 13:07 Performed at [facility] | | | [place] [address] CLIA#: | | | [id number]: Unless otherwise specified, a microscopic exam | | | has been performed. Received Date: 10/07/2015Collection Date: | | | 10/07/2015Referring Physician: Jesus IRVIN, Sundeep [facility]dition[facility]ole | | | Physician copies: [...] | | |cm from the deep margin. It Project Lead sections are submitted as | | |follows: A1 - tips; A2-A8 - entire lesion blocked out. (pam/[id number]) | | | | | | | | | | | | | | | Jackson Vivar M.D. Electronically signed 10/09/2015 13:07 (605) | | |[phone] Performed at [facility] Pathology[address], | | |[place] [address] [facility]#: [id number] | | |Microscopic: Unless otherwise specified, a [...] + + | REFERENCE LAB | [address] [facility] [facility] [address] | [place] [address] | [phone] | | CELLNETIX | [address] | | [...]
--- OUTSIDE RECORDS SUMMARY | ~2020-03-12 | XMS | Encounter Summary ---
Demographics + + + | Address | [address] | | | [place] [address] | + + + | Home Phone [...] Team Providers + +------+ + | Care Supply Chain Tech Name | Role | Phone | + [...] | 2019 | Visit | Center at [facility] [address] | | BMI of 45.0-49.9, | | | [address] | | adult (HCC) (Primary | | | | Mailcode: Center | | Dx) | | | | for Health and | | | | | | [facility] 2 | | | | | | [place], [place] | | | | | | [address] | | | | | | [phone] | | | +--------+---------+ + + + [...] Gastrectomy. Documented Time of Class: 60 minutes bnqx-yx-gbqr with patient OBJECTIVE: Ht Readings from Last [...] Paniagua, MS, RDN, CSOWM, LD, CDE [facility] Bariatrics [phone] documented in this e ncounter Plan of Treatment Not on filedocumented as of this encounter Visit Diagnoses + + | Diagnosis | + + | Morbid obesity with BMI of 45.0-49.9, adult (HCC) - Primary | + + documented in this encounter
--- OUTSIDE RECORDS SUMMARY | ~2020-03-12 | XMS | Encounter Summary ---
Demographics + + + | Address | [address] | | | [place] [address] | + + + | Home Phone | | + + + | Preferred Language | Unknown | + + + | Marital Status | Single | + + + | Scientology Affiliation | Unknown | + + + [...] Team Providers + +------+ + | Care Chiropractic Care Name | Role | Phone | + [...] Pending | | Nutrition | Diagnoses | yL Vo | Fn | | Review | | | Severe | Adriane, MD | [facility] | | | | | obesity (BMI | [address] | [address] | | | | | >= 40) | [address] | [address] | | | | | ([facility]) | Rd | Center for | | | | | Procedures | [place], [place] | Health and | | | | | CONSULT TO | [address] | Healing, | | | | | BARIATRIC | Phone: | Building 2 | | | | | SURGERY | [phone] | [place], [place] | | | | | | Fax: | [address] | | | | | | [phone] | Phone: | | | | | | | [phone] | | | | | | | Fax: | | | | | | | [phone] | + +--------+ + + + + Encounter Details +--------+---------+ + + + | Date | Type | Department | Care Team | Description | +--------+---------+ + + + | 07/18/ | Office | Digestive Health | Shoshana Paniagua, | Severe obesity (BMI | | 2019 | Visit | Center at [facility] [address] | [address] | >= 40) ([facility]) | | | | [facility] | [address] | (Primary Dx) | | | | for Health and | [place], [place] | | | | | [facility] 2 | [address] | | | | | [place], [place] | | | | | | [address] | | | | | | [phone] | | | +--------+---------+ + + + [...] of Visit: 2:00 until 3:01 (61 minutes rijx-mc-behd with patient) SUBJECTIVE: Pt comes in alone. [...] Diet pepsi 4pm 4 Prunes 7pm [facility] Grilled chicken salad with [facility] dressing + 20 oz crystal ligh t [...] 2 pre-surgery classes. 4. Call or send Sensipass message to dietitian with any questions. Contact information was provided. Follow up with dietitian 1-2 weeks after surgery at first post-op visit. Shoshana Paniagua MS, RDN, CSOWM, LD, CDE [facility] [phone] documented in this e ncounter Plan of Treatment Not on filedocumented as of this encounter Procedures + +--------+ + + + | Procedure Name | Priori | Date/Time | Associated Diagnosis | Comments | | | ty | | | | + +--------+ + + + | [place] MNT INITIAL | Routin | 07/18/2019 | Severe obesity | | | ASSESSMNT X15MIN | e | 3:03 PM | (BMI >= 40) ([facility]) | | | | | PDT | | | + +--------+ + + + documented in this encounter Visit Diagnoses + + | Diagnosis | + + | Severe obesity (BMI >= 40) (HCC) - Primary Morbid obesity | + + documented in this encounter
--- OUTSIDE RECORDS SUMMARY | ~2020-03-12 | XMS | Encounter Summary ---
Demographics + + + | Address | [address] | | | [place] [address] | + + + | Home Phone | | + + + | Preferred Language | Unknown | + + + | Marital Status | | + + + | Yazidi Affiliation | 1027 | + + + | Race | Unknown | + + + | Ethnic Group | Unknown | + + + Author + + + | Author | [facility] | | | and [place] | + + + | Organization | [facility] | | | and Maverickana [...] Providers + +------+ + | Care Jewelry Jobber Name | Role | Phone | + [...] [place] | | | | | [address] | [phone] | | | | | [phone] | | | +--------+ + + + [...] Care Everywhere.FINGER TIP ZANDER BEARDEN, OPEN TREATMENT (CHINESE)documented in this encounter Medications at Time of [...] | | + +--------+ +---------+------+ + | ypyvnzg-jqmwdbykrw-wkbjcfvxz | Given | 12/25/20 | 0.5 mLs [...]
--- OUTSIDE RECORDS SUMMARY | ~2020-03-12 | XMS | Encounter Summary ---
Demographics + + + | Address | [address] | | | [place] [address] | + + + | Home Phone [...] | Organization | [facility] | | | and Maverickana [...] Providers + +------+ + | Care Manager Council Name | Role | Phone | + [...] [place] | | | | | [address] | [phone] | | | | | [phone] | | | +--------+ + + + [...] Care Everywhere.FINGER TIP ZANDER BEARDEN, OPEN TREATMENT (MAORI)documented in this encounter Medications at Time of [...] | | + +--------+ +---------+------+ + | zzfftve-gskobzcoxs-pwaqcyrlv | Given | 12/25/20 | 0.5 mLs [...]
--- OUTSIDE RECORDS SUMMARY | ~2020-03-12 | XMS | Encounter Summary ---
Demographics + + + | Address | [address] | | | [place] [address] | + + + | Home Phone [...] | Organization | [facility] | | | and [...] Team Providers + +------+ + | Care Art Manager Name | Role | Phone | [...] | | | left upper | | [address] | | | | | extremity, | | Phone: | | | | | including | | [phone] | | | | | shoulder | | Fax: | | | | | Procedures | | [phone] | | | | | FL EXC TUMOR | | | | | | | SOFT TISSUE | | | | | | | UPPER | | | | | | | ARM/ELBOW | | | | | | | SUBQ 3+CM | | | | | | | FL EXC SKIN | | | | | [...] Event | [facility] [place] | [address] | | | | | INTRA MA[address] [place], | | | | | [address] | [place] [address] | | | | | [place] [address] | [phone] | | | | | [phone] | | | | | | | Hardeep Johnson, | | | | | | [address]ARN[address] | | | | | | [place] | | | | | | [address] | | | | | | | [...] +----+---+ + + | | 1 | [place] | | | | 0 | 43-degrees [...] +----+---+ + + | | 1 | [place] off | | | | 2 | [...] + + | Periph | 10/07/15; 0821; unbp-mjc-jenzas | 10/07/15 0821 by | 07/16/18 1411 [...] + + | Periph | 11/17/15; 1000; bsij-hit-zsslka | 11/17/15 1000 by | 11/17/15 1416 by | | eral | catheter system; 20 gauge, 1 in | Latasha Abbott | Dilcia Sewell, | | IV | length; distraction, intradermal | | SUPERSONIC ENGINEER | | | injection, tolerated well; | [...] | healing within expectations; | RN | SUPERSONIC ENGINEER | | | 11/17/15; 1416 | | | +--------+ + + + | Read | 11/17/15; 1144; Left; arm; | 11/17/15 1144 by | 11/17/15 1416 by | | only - | healing within expectations; | Collette Edmonds, | Dilcia Sewell, | | | 11/17/15; 1416 | RN | SUPERSONIC ENGINEER | | Incisi | | | | [...]
--- OUTSIDE RECORDS SUMMARY | ~2020-03-12 | XMS | Encounter Summary ---
Demographics + + + | Address | [address] | | | [place] [address] | + + + | Home Phone | | + + + | Preferred Language | Unknown | + + + | Marital Status | | + + + | Rastafari Affiliation | 1027 | + + + | Race | Unknown | + + + | Ethnic Group | Unknown | + + + Author + + + | Author | [facility] | | | and Maverickana | + + + | Organization | [facility] | | | and Maverickana [...] Team Providers + +------+ + | Care Botany Professor Name | Role | Phone | [...] | | | | | | | [place] CATH | | | | | | | PLACE/CORON | | | | | | | ANGIO, IMG | | | | | | | SUPER/INTERP | | | | | | | ,W LEFT | | | | | | | HEART | | | | | | | VENTRICULOGR | | | | | | | APHY TN PRQ | | | | | | | TRLUML | | | | | | | CORONARY | | | | | | | STENT | | | | | | | W/ANGIO ONE | | | | | | | ART/BRNCH | | | | | | | TN PRQ | | | | | | [...] MED CTR CV | MD Janette [address] | CORONARIES/CORONARY | | | | INTRA [address] | [place] | INTERVENTION | | | | [place] | [address] | | | | | | [phone] | | | | | [phone] | | | +--------+---------+ + + + [...] Physician Discharge Summary Patient ID: Tiffanie Valentin [id number] y.o. 1950 Admit date: 01/02/2015 Discharge date and time: No discharge date for patient encounter. Admitting Physician: Jozef Hoover MD Discharge Physician: Jozef Hoover MD [facility] Interventional Cardiology [place], [place] Admission Diagnoses: Nonspecific abnormal unspecified cardiovascular [...] present. Please notify your MD and/or your Metal Furniture Glazier if any of the follo wing occur: [...] + | Jozef Hoover MD 01/02/2015 9:22 [facility] | [facility] | | [facility] CARDIAC CATHETERIZATION REPORT PATIENT | | | NAME: | | | Tiffanie Valentin DATE OF : | | | 1950 MEDICAL | | | RECORD NUMBER: [id number] | | | DATE OF PROCEDURE: | | | 01/02/2015 FACILITY: | | | [facility] | | | [place], [place] | | | | | | PRIMARY CARE PROVIDER: | | | Peng Fink PRIMARY OUTREACH LIAISON: | | | Jozef Hoover MD [facility] Interventional Cardiology | | | [place], [place] IN STORE BANKER: | | | Dr. Jozef Hoover MD | | | [facility] PRE-PROCEDURE DIAGNOSIS: | | | abnormal [...] and anesthetized with 1% lidocaine. A 6 turks and caicos islander sheath was | | | placed into the right radial artery A 6 turks and caicos islander pigtail cathether was | | | advanced into the left ventricle, pressures were measured, and left | | | ventriculography was performed. Standard angiography was performed | | | in multiple views using 6 Georgian tiger catheter to engage the | | [...] Jozef Siddiqui | | | MD Kiko [facility] Interventional Cardiology [facility] | | | [place], [place] 01/02/2015 9:20 | | + + [...] | | | | 324 mg, Oral, SLUBBER OPERATOR, Starting | | 15 7:29 | [...] | mLs | | | | Intravenous, SLUBBER OPERATOR, Starting | | AM PDT | [...]
--- OUTSIDE RECORDS SUMMARY | ~2020-03-12 | XMS | Encounter Summary ---
Demographics + + + | Address | [address] | | | [place] [address] | + + + | Home Phone [...] + + + | Author | [facility] | + + + | Organization | [facility] | + + + | Address | Unknown | + + + | Phone | Unavailable | + + + Support + + +---------+ + | Name | Relationship | Address | Phone | + + +---------+ + | Marifer Valentin | ECON | Unknown | | + + +---------+ + Care Team Providers + +------+ + | Care Leather Tanner Name | Role | Phone | + +------+ + | Stephanie Washington | PCP | | + +------+ + Encounter Details +--------+ + + + + | Date | Type | Department | Care Team | Description | +--------+ + + + + | 07/08/ | Abstract | Digestive Health | Clinic, Surgery | | | 2019 | | [place] [facility] [address] | | | | | | [address] | | | | | | Mailcode: [place] | | | | | | for Health and | | | | | | Healing, Building 2 | | | | | | [place], [place] | | | | | | [address] | | | | | | [phone] | | | +--------+ + + + [...]
--- OUTSIDE RECORDS SUMMARY | ~2020-03-12 | XMS | Encounter Summary ---
Demographics + + + | Address | [address] | | | [place] [address] | + + + | Home Phone | | + + + | Preferred Language | Unknown | + + + | Marital Status | Single | + + + | Christianity Affiliation | Unknown | + + + | Race | White | + + + | Ethnic Group | Not or | + + + Author + + + | Author | [facility] | + + + | Organization | [facility] | + + + | Address | Unknown | + + + | Phone | Unavailable | + + + Support + + +---------+ + | Name | Relationship | Address | Phone | + + +---------+ + | Marifer Valentin | ECON | Unknown | | + + +---------+ + Care Team Providers + +------+ + | Care Commercial Counsel Name | Role | Phone | + [...] Pain | Diagnoses | Jay Jay, | Coil Former Psych | | Review | | Management | Morbid | ROSIO White | [address] | | | | | obesity with | [address] | | | | | BMI of | [address] | Mailcode: | | | | | 45.0-49.9, | [place], [place] | [facility] | | | | | adult ([facility]) | [address] | for Health | | | | | Depression, | Phone: | and Healing, | | | | | unspecified | [phone] | Building 1, | | | | | depression | Fax: | 15th Floor | | | | | type | [phone] | [place], [place] | | | | | Hypertension | | [address] | | | | | , | | Phone: | | | | | unspecified | | [phone] | | | | | type | | Fax: | | | | | Obstructive | | [phone] | | | | | sleep apnea [...] | Bariatri Surg | | | with SPORTS INTERN | | obesity (BMI | [address] | [address] | | | | | >= 40) | [address] | [place] | | | | | ([facility]) | Rd | Mailcode: | | | | | Procedures | [place], [place] | [place] for | | | | | CONSULT TO | [address] | Health and | | | | | BARIATRIC | Phone: | Healing, | | | | | SURGERY | [phone] | [facility] 2 | | | | | | Fax: | [place], [place] | | | | | | [phone] | [address] | | | | | | | Phone: | | | | | | | [phone] | | | | | | | Fax: | | | | | | | [phone] | + + + + + + + Encounter Details +--------+---------+ + + + | Date | Type | Department | Care Team | Description | +--------+---------+ + + + | 08/19/ | Office | Digestive Health | Cindy Goyal, | Morbid obesity with | | 2019 | Visit | Center at [address] | SUPERVISOR [employer] [address] | BMI of 45.0-49.9, | | | | [address] | [place], [place] | adult ([facility]) (Primary | | | | Mailcode: Center | [address] | Dx); Depression, | | | | for Health and | | unspecified | | | | Healing, Building 2 | | depression type; | | | | [place], [place] | | Hypertension, | | | | [address] | | unspecified type; | | | [...] go to the 1st floor of the [facility] 2 building and have these labs [...] Pre-op Psychological Evaluation: Your referral is at [facility], the Pain Management Office mikayla l call [...] request from your PCP to a local trench pipe layer helper and have copies of the office visit no nitesh and any test results faxed to us. If you have an established trench pipe layer helper, we will need official documentation from them iden tifying your cardiac risk stratification prior to surgery. + Weight Management classes: 2 classes are required in addition to your private appointment with the qa automation engineer. These classes will be scheduled apporoximately 1 [...] weight. 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 Lives at home with daughter an [...] medicated, last lipid panel 06/28/19. Denies CHF, [place], ischemic heart disea se, DVT/PE, or pulmonary hypertension. States unable to climb two flights of stairs due to her knees. 12/05/14 [place] Myocardial Perfusion Scan Pharmacologic at the [facility]: FINAL IMPRESSION: 1. Abnormal study. [...] response to Lexiscan. 01/02/15 Interventional Cardiology at [place]: PROCEDURES PERFORMED: 1. Left Heart Catheterization for [...] and anesthetized with 1% lidocaine. A 6 pakistani sheath was placed into the right radial artery A 6 pakistani pigtail cathether was advanced into the left ventricle, pressures were measured, and left ventriculography was performed. Standard angiography was performed in multiple views using 6 Russian tiger catheterto engage the left and right [...] or jaundice. Pt had an EGD in [place] 07/16/18 that she states was followed by a capsule endoscopy a c ouple of months later. The EGD report is in [place], no capsule endoscopy report available. Addit ionally she had an UGI done at the time of her appt with our Foregut team. 06/14/19 Xray Esophagram at [facility]: IMPRESSION: Stomach containing sliding-type large hiatal hernia. 07/16/18 EGD at [facility] ([place], [place]): 07/16/18 Pathology: Abd surgeries: lap oophorectomy [...] bariatric surgery. Records have been reviewed from [facility] and several attempts have been made to [...] date here on 07/18/19 wit h our qa automation engineer, for a preop weight loss goal of 15 pounds -pt counseled on the possible risk of GERD symptoms after sleeve gastrectomy -pt counseled on the risk of marginal ulcers with RYGB and the need to abstain from NSAIDs post surgery as these increase risk of ulcers #Incisional hernia -reviewed red flags and when to seek care [facility]/Hiatal hernia -subjective improvement of [...] go to the 1st floor of the [facility] 2 building and have these labs [...] Pre-op Psychological Evaluation: Your referral is at [facility], the Pain Management Office mikayla l call [...] request from your PCP to a local trench pipe layer helper and have copies of the office visit no nitesh and any test results faxed to us. If you have an established trench pipe layer helper, we will need official documentation from them iden tifying your cardiac risk stratification prior to surgery. + Weight Management classes: 2 classes are required in addition to your private appointment with the qa automation engineer. These classes will be scheduled apporoximately 1 [...] weight. + My Chart Sign up for In [employer] so that we can communicate easily back [...] other providers does not guarantee that the [facility] Bariatric Surger y program will deem you [...] GWEN Robb, MPH Bariatric Surgery Nurse Practitioner [facility] | [address] | [place], [place] | [address] | documented in this encounter Plan of [...] | + + + + + | [facility] | [address] | [place] [address] | | | SERVICES, [place] FOR | | | | | HEALTH [...] B: | | | | | | LYZER [email or web address] | | | | | | by [employer],[address] | | | | | | [place] [place], [facility],[place] | | | | | | [address] | | | | | | [phone] [email or web address]. | | | | | | com, [...] + + | [facility] | [address] | [place], [place] | | | UNIV PTH - INTFC | | [address] | | + + + + + [...] [facility] | | | (ROC ALEXIS) | [facility],[address] | | REG UNIV | | | SERUM | [facility] [place], [place] | | PTH - INTFC | | | | [address] | | | | | | [phone]. | | | | | | Jeffrey [...] B: | | | | | | NUVETA/CS | | | | + + + + + + + + | Specimen | + + | Blood - Blood | | (substance) | + + + + + + + | Performing | Address | City/State/Zipcode | Phone Number | | Organization | | | | + + + + + | [facility] | [address] | [place], [place] | | | UNIV PTH - INTFC | | [address] | | + + + + + [...] | + + + + + | [facility] | [address] | [place] [address] | | | SERVICES, CORE | PARK [...] | + + + + + | [facility] | [address] | [place] [address] | | | SERVICES, [place]IA | ABEBA [...] B: | | | | | | [email or web address] Energy/CSPerformed | | | | | | by [facility],[address] | | | | | | [facility] | | | | | | [address] | | | | | | [phone]. | | | | | | [facility], Jeffrey Armendariz MD, | | | [...] [facility] | [address] | [place], [place] | | | UNIV PTH - INTFC | | [address] | | + + + + + [...] [facility] | | | | | | [employer]. See | | | | | | Compliance Statement B: | | | | | | [email or web address]/CSPerformed | | | | | | by [facility]TW[employer],[address] | | | | | | Cleo Soria, [facility],[place] | | | | | | [address] | | | | | | [phone]. | | | | | | [facility] hospital[facility] MD, | | | | | [...] [facility] | [address] | [place], [place] | | | UNIV PTH - INTFC | | [address] | | + + + + + [...] [facility] | [address] | [place] [address] | | | SERVICES, CENTER FOR | [...] | | | | | determined by [email or web address] | | | | | | Laboratories. See | | | | | | Compliance Statement B: | | | | | | NUVETA/CSPerformed | | | | | | by [facility],[address] | | | | | | [place], [place] | | | | | | [address] | | | | | | [phone]. | | | | | | Jeffrey [...] [facility] | [address] | [place], [place] | | | UNIV PTH - INTFC | | [address] | | + + + + + [...] + | [facility] | [address] | [place] [address] | | | SERVICES, CORE | PARK [...] [facility] | [address] | [place] [address] | | | SERVICES, CORE | ABEBA [...] | + + + + + | [facility] | [address] | [place] [address] | | | SERVICES, SPECIAL | ABEBA [...] | [facility] | | considered for monitoring ferry terminal supervisor glycemic control in patients with: | LABORATORY [...] | + + + + + | [facility] | [address] | [place] [address] | | | SERVICES, SPECIAL | PARK [...] | + + + + + | [facility] | [address] | [place] [address] | | | SERVICES, CORE | ABEBA [...] | | | | | determined by [employer] | | | | | | Laboratories. See | | | | | | Compliance Statement B: | | | | | | [email or web address].[email or web address] Energy/CSPerformed | | | | | | by XTWIP,[address] | | | | | | Cleo Soria, [facility],[place] | | | | | | [address] | | | | | | [phone].[email or web address] DIAGNOSTICSlab. | | | | | | Jeffrey [...] [facility] | [address] | [place], [place] | | | UNIV PTH - INTFC | | [address] | | + + + + + [...] | | | LABORATORY | | | LAO | | | SERVICES, | | | [...] NICOLE VALDOVINOS | [address] | [place] [address] | | | [facility] | | | | | [...]
--- OUTSIDE RECORDS SUMMARY | ~2020-03-12 | XMS | Encounter Summary ---
Demographics + + + | Address | [address] | | | [place] [address] | + + + | Home Phone | | + + + | Preferred Language | Unknown | + + + | Marital Status | | + + + | Roman Catholic Affiliation | 1027 | + + + | Race | Unknown | + + + | Ethnic Group | Unknown | + + + Author + + + | Author | [facility] | | | and Maverickana | + + + | Organization | [facility] | | | and [...] Team Providers + +------+ + | Care Phosphorus Processing Supervisor Name | Role | Phone | [...] | [facility] [place] | [address] | | | | | INTRA [address] | [address] | | | | | [address] | [place] | | | | | [place] | [phone] | | | | | [phone] | | | +--------+ + + + [...]
--- OUTSIDE RECORDS SUMMARY | ~2020-03-12 | XMS | Encounter Summary ---
Demographics + + + | Address | [address] | | | [place] [address] | + + + | Home Phone | | + + + | Preferred Language | Unknown | + + + | Marital Status | | + + + | Bahai Affiliation | 1027 | + + + | Race | Unknown | + + + | Ethnic Group | Unknown | + + + Author + + + | Author | [facility] | | | and Maver[place] | + + + | Organization | [facility] | [...] Team Providers + +------+ + | Care Glass Inspector Name | Role | Phone | + +------+ + | Peng Fink MD | PCP | | + +------+ + Encounter Details +--------+---------+ + + + | Date | Type | Department | Care Team | Description | +--------+---------+ + + + | 07/16/ | Surgery | [facility] | Ezra Green MD | EGD | | 2018 | | MED CTR MP INTRA OP | [address] | | | | | [address] | [place], [place] | | | | | [place], [place] | [address] | | | | | [address] | [phone] | | | | | [phone] | | | +--------+---------+ + + + [...] You can't be awakened Date Last Reviewed: 08/09/201619999887-0892 [employer] [address] [place] [address], [place] [address]. All righ ts reserved. This information is [...] | | | cell metaplasia or dysplasia. [facility]:smn:C2NR GROSS DESCRIPTION: | | | A. [...] | | | interpretation were performed by [facility], [address] | | | [place] [address] (Other Sales Support Worker: Jonatan Johns | | | Jareth Hamilton; CLIA#: [id number]). Diagnostician: Rene Rothman | | | Glenis IRVIN Pathologist Electronically Signed 07/18/2018 | | + + + + +---------+ + + | Performing | Address | City/State/Zipcode | Phone Number | | Organization | | | | + +---------+ + + | [place] [facility] | | | | | [facility] [...]
--- OUTSIDE RECORDS SUMMARY | ~2020-03-12 | XMS | Encounter Summary ---
Demographics + + + | Address | [address] | | | [place] [address] | + + + | Home Phone | | + + + | Preferred Language | Unknown | + + + | Marital Status | | + + + | Judaism Affiliation | 1027 | + + + | Race | Unknown | + + + | Ethnic Group | Unknown | + + + Author + + + | Author | [facility] | | | and [place] | + + + | Organization | [facility] | | [...] Team Providers + +------+ + | Care Safety Lead Name | Role | Phone | + [...] [address] [place] | | | | | MT EXC SKIN | | [address] | | | | | [place] | | Phone: | | | | | 2.1-3CM | | [phone] | | | | | TRUNK,ARM,LE | | Fax: | | | | | G MT SPLIT | | [phone] | | | | | GRFT | [...] Event | [facility] [place] | PLUMBING ENGINEER [address] | | | | | INTRA MA[address] | [address] | | | | | [address] | | | | | | [place] | Roc Mcallister, | | | | | | PLUMBING ENGINEER 1700 | | | | | | [...] 0951 | | UPPER BACK BASAL | PLUMBING ENGINEER | | | | CELL CARCINOMA | [...] + + | Periph | 10/07/15; 0821; [id number] | 10/07/15 0821 by | 07/16/18 1411 [...]
--- OUTSIDE RECORDS SUMMARY | ~2020-03-12 | XMS | Encounter Summary ---
Demographics + + + | Address | [address] | | | [place] [address] | + + + | Home Phone [...] | Organization | [facility] | | | and [...] Providers + +------+ + | Care Senior Software Qa Engineer Name | Role | Phone | [...] | | | | | | OR CATH | | | | | | | PLACE/CORON | | | | | | | ANGIO, IMG | | | | | | | SUPER/INTERP | | | | | | | ,W LEFT | | | | | | | HEART | | | | | | | VENTRICULOGR | | | | | | | APHY OR PRQ | | | | | | | TRLUML | | | | | | | CORONARY | | | | | | | STENT | | | | | | | W/ANGIO ONE | | | | | | | ART/BRNCH | | | | | | | OR PRQ | | | | | | [...] + + | 01/02/ | Hospital | [facility] | Kiko Jozef | | | 2015 | Encounter | [facility] | MD Janette [address] | | | | | INTRA OP [address] | [address] | | | | | [place] | [address] | | | | | [address] | [phone] | | | | | [phone] | | | +--------+ + + + [...] Physician Discharge Summary Patient ID: Tiffanie Valentin [id number] y.o. 1950 Admit date: 01/02/2015 Discharge date and time: No discharge date for patient encounter. Admitting Physician: Jozef Hoover MD Discharge Physician: Jozef Hoover MD [facility] Interventional Cardiology [place], [place] Admission Diagnoses: Nonspecific abnormal unspecified cardiovascular [...] present. Please notify your MD and/or your Marketing Designer if any of the follo wing occur: [...] | Jozef Hoover MD 01/02/2015 9:[address] [facility] | [facility] | | [facility] CARDIAC CATHETERIZATION REPORT PATIENT | | | NAME: | | | Tiffanie Valentin DATE OF : | | | 1950 MEDICAL | | | RECORD NUMBER: [id number] | | | DATE OF PROCEDURE: | | | 01/02/2015 FACILITY: | | | [facility] | | | [place], [place] | | | | | | PRIMARY CARE PROVIDER: | | | Peng Fink PRIMARY TRAIN OPERATOR: | | | Jozef Hoover MD [facility] Interventional Cardiology | | | [place], [place] TERRAZZO WORKER APPRENTICE: | | | Dr. Jozef Hoover MD | | | [facility] PRE-PROCEDURE DIAGNOSIS: | | | abnormal [...] | | in multiple views using 6 Swedish tiger catheter to engage the | | [...] Jozef Siddiqui | | | MD Kiko [facility] Interventional Cardiology [place] | | | [place] 01/02/2015 9:20 | | + + + [...] | | | | 324 mg, Oral, HOSE MAKER, Starting | | 15 7:29 | | [...] | mLs | | | | Intravenous, HOSE MAKER, Starting | | AM PDT | | [...]
--- OUTSIDE RECORDS SUMMARY | ~2020-03-12 | XMS | Encounter Summary ---
Demographics + + + | Address | [address] | | | [place] [address] | + + + | Home Phone | | + + + | Preferred Language | Unknown | + + + | Marital Status | | + + + | Muslim Affiliation | 1027 | + + + | Race | Unknown | + + + | Ethnic Group | Unknown | + + + Author + + + | Author | [facility] | | | and [place] | + + + | Organization | [facility] | | | and [...] Team Providers + +------+ + | Care Cartographic Engineer Name | Role | Phone | [...] [facility] IP | [address] [facility] | | | | | GENERIC CONV [address] | [address] | | | | | [place], | [address] | | | | | [place] [address] | | | | | | [phone] | | | +--------+ + + + [...]
--- OUTSIDE RECORDS SUMMARY | ~2020-03-12 | XMS | Encounter Summary ---
Demographics + + + | Address | [address] | | | [place] [address] | + + + | Home Phone | | + + + | Preferred Language | Unknown | + + + | Marital Status | Single | + + + | Jewish Affiliation | Unknown | + + + [...] Team Providers + +------+ + | Care Ramp Jockey Name | Role | Phone | + [...] | 2018 | Visit | Center at [facility] [address] | | BMI of 45.0-49.9, | | | | [address] | | adult (HCC) (Primary | | | | Mailcode: Center | | Dx) | | | | for Health and | | | | | | [facility] 2 | | | | | | [place], [place] | | | | | | [address] | | | | | | [phone] | | | +--------+---------+ + + + [...] . Documented Time of Class: 60 minutes dbey-in-ivhb with patient OBJECTIVE: Height: Ht Readings from [...] Shoshana Paniagua, MS, RDN, CSOWM, LD, CDE [facility] Bariatrics [phone] documented in this e ncounter Plan of Treatment Not on filedocumented as of this encounter Visit Diagnoses + + | Diagnosis | + + | Morbid obesity with BMI of 45.0-49.9, adult (HCC) - Primary | + + documented in this encounter
--- OUTSIDE RECORDS SUMMARY | ~2020-03-12 | XMS | Encounter Summary ---
Demographics + + + | Address | [address] | | | [place] [address] | + + + | Home Phone [...] Team Providers + +------+ + | Care Windows Server Specialist Name | Role | Phone | [...] Mailcode: | | | | | ([facility]) | [place], [place] | Center for | | | | | Procedures | [address] | Health and | | | | | PHYSICAL | Phone: | Healing, | | | | | THERAPY | [phone] | Building 2 | | | | | REFERRAL | Fax: | [place], [place] | | | | | | [phone] | [address] Phone: | | | | | | | [phone] | | | | | | | Fax: | | | | | | | [phone] | + +--------+ + + + + Encounter Details +--------+ + + + + | Date | Type | Department | Care Team | Description | +--------+ + + + + | 07/08/ | Refuse Driver | Digestive Health | Cindy Goyal, | Severe obesity (BMI | | 2019 | | Center at [facility] [address] | CAUSTIC CRESYLATE SHIFT SUPERINTENDENT [address] | >= 40) ([facility]) | | | | [address] | [place], [place] | (Primary Dx) | | | | Mailcode: [place] | [address] | | | | | for Health and | [phone] | | | | | [facility] 2 | | | | | | [place], [place] | | | | | | [address] | | | | | | | [...]
--- OUTSIDE RECORDS SUMMARY | ~2020-03-12 | XMS | Encounter Summary ---
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 | | Review | | Management | Morbid | ROSIO White | [facility] [address] | | | | | obesity with | [address] | | | | | BMI of | [address] | Mailcode: | | | | | 45.0-49.9, | [place], [place] | [facility] Center | | | | | adult ([facility]) | [address] | for Health | | | | | Depression, | Phone: | and Healing, | | | | | unspecified | [phone] | Building 1, | | | | | depression | Fax: | 15th Floor | | | | | type | [phone] | [place], [place] | | | | | Hypertension | | [address] | | | | | , | | Phone: | | | | | unspecified | | [phone] | | | | | type | | Fax: | | | | | Obstructive | | [phone] | | | | | sleep apnea [...] | B[facility] Surg | | | with INNER TUBE CUTTER | | obesity (BMI | [address] | [address] | | | | | >= 40) | Angel Thompson | [address] | | | | | ([facility]) | Rd | Mailcode: | | | | | Procedures | [place], [place] | [place] for | | | | | CONSULT TO | [address] | Health and | | | | | BARIATRIC | Phone: | Healing, | | | | | SURGERY | [phone] | [facility] 2 | | | | | | Fax: | [place], [place] | | | | | | [phone] | [address] | | | | | | | Phone: | | | | | | | [phone] | | | | | | | Fax: | | | | | | | [phone] | + + + + + + + Encounter Details +--------+---------+ + + + | Date | Type | Department | Care Team | Description | +--------+---------+ + + + | 08/19/ | Office | Digestive Health | Cindy Goyal, | Morbid obesity with | | 2019 | Visit | Center at [facility] | CADDY/CADDIE SUPERVISOR [address] | BMI of 45.0-49.9, | | | | [address] | [place], [place] | adult ([facility]) (Primary | | | | Mailcode: Center | [address] | Dx); Depression, | | | | for Health and | | unspecified | | | | Healing, Building 2 | | depression type; | | | | [place], [place] | | Hypertension, | | | | [address] | | unspecified type; | | | [...] go to the 1st floor of the [facility] 2 building and have these labs done. [...] Pre-op Psychological Evaluation: Your referral is at [facility], the Pain Management Office mikayla l call [...] request from your PCP to a local licensed sales assistant and have copies of the office visit no nitesh and any test results faxed to us. If you have an established licensed sales assistant, we will need official documentation from them iden tifying your cardiac risk stratification prior to surgery. + Weight Management classes: 2 classes are required in addition to your private appointment with the pulp piler. These classes will be scheduled apporoximately 1 [...] weight. 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 Lives at home with daughter an [...] medicated, last lipid panel 06/28/19. Denies CHF, LA, ischemic heart disea se, DVT/PE, or pulmonary hypertension. States unable to climb two flights of stairs due to her knees. 12/05/14 NM Myocardial Perfusion Scan Pharmacologic at the [facility]: FINAL IMPRESSION: 1. Abnormal study. [...] response to Lexiscan. 01/02/15 Interventional Cardiology at [place]: PROCEDURES PERFORMED: 1. Left Heart Catheterization for [...] and anesthetized with 1% lidocaine. A 6 nigerien sheath was placed into the right radial artery A 6 nigerien pigtail cathether was advanced into the left ventricle, pressures were measured, and left ventriculography was performed. Standard angiography was performed in multiple views using 6 Grenadian tiger catheterto engage the left and right [...] or jaundice. Pt had an EGD in [place] 07/16/18 that she states was followed by a capsule endoscopy a c ouple of months later. The EGD report is in [place], no capsule endoscopy report available. Addit ionally she had an UGI done at the time of her appt with our Foregut team. 06/14/19 Xray Esophagram at [facility]: IMPRESSION: Stomach containing sliding-type large hiatal hernia. 07/16/18 EGD at [facility] ([place], [place]): 07/16/18 Pathology: Abd surgeries: lap oophorectomy [...] bariatric surgery. Records have been reviewed from [facility] and several attempts have been made [...] date here on 07/18/19 wit h our pulp piler, for a preop weight loss goal of 15 pounds -pt counseled on the possible risk of GERD symptoms after sleeve gastrectomy -pt counseled on the risk of marginal ulcers with RYGB and the need to abstain from NSAIDs post surgery as these increase risk of ulcers #Incisional hernia -reviewed red flags and when to seek care -[facility]D/Hiatal hernia -subjective improvement of the [...] go to the 1st floor of the [facility] 2 building and have these labs done. [...] Pre-op Psychological Evaluation: Your referral is at [facility], the Pain Management Office mikayla l call [...] request from your PCP to a local licensed sales assistant and have copies of the office visit no nitesh and any test results faxed to us. If you have an established licensed sales assistant, we will need official documentation from them iden tifying your cardiac risk stratification prior to surgery. + Weight Management classes: 2 classes are required in addition to your private appointment with the pulp piler. These classes will be scheduled apporoximately 1 [...] weight. + My Chart Sign up for [employer] so that we can communicate easily [...] other providers does not guarantee that the [facility] Bariatric Surger y program will deem you [...] GWEN Robb, MPH Bariatric Surgery Nurse Practitioner [facility] | [address] | [place], [place] | [address] | documented in this encounter Plan of [...] | | | | s | | ([facility]) Depression, | | | | | [...] results section. | | | | | ([facility]) Depression, | | | | | [...] results section. | | | | | ([facility]) Depression, | | | | | [...] | + + + + + | [facility] | [address] | [place] [address] | | | SERVICES, [facility] | | | | | HEALTH [...] B: | | | | | | Zupplerlab.com/CSPerformed | | | | | | by [employer],[address] | | | | | | [place], [facility] [place] | | | | | | [address] | | | | | | [phone].Zupplerlab. | | | | | | com, [...] | [facility] | [address] [facility] | [place], [place] | | | UNIV PTH - INTFC | | [address] | | + + + + + [...] [facility] | | | (ROC ALEXIS) | [facility],[address] | | REG UNIV | | | SERUM | [facility] [place], [place] | | PTH - INTFC | | | | [address] | | | | | | [phone].Rootdownuplab. | | | | | | Jeffrey [...] B: | | | | | | Enervee/CS | | | | + + + + + + + + | Specimen | + + | Blood - Blood | | (substance) | + + + + + + + | Performing | Address | City/State/Zipcode | Phone Number | | Organization | | | | + + + + + | [facility] | [address] | [place], [place] | | | UNIV PTH - INTFC | | [address] | | + + + + + [...] | + + + + + | [facility] | [address] | [place] [address] | | | SERVICES, CORE | PARK [...] | + + + + + | [facility] | [address] | [place] [address] | | | SERVICES, ROSALIA | ABEBA [...] B: | | | | | | F?rsat Bu F?rsat.DivX/CSPerformed | | | | | | by [facility],[address] | | | | | | [facility] | | | | | | [address] | | | | | | [phone].F?rsat Bu F?rsat. | | | | | | [facility], Jeffrey Armendariz MD, | | | | [...] [facility] | [address] | [place], [place] | | | UNIV PTH - INTFC | | [address] | | + + + + + [...] [facility] | | | | | | [employer]. See | | | | | | Compliance Statement B: | | | | | | F?rsat Bu F?rsat.DivX/CSPerformed | | | | | | by [employer]digits,[address] | | | | | | [place], [facility] [place] | | | | | | [address] | | | | | | [phone].F?rsat Bu F?rsat. | | | | | | [facility]Jeffrey MD, | | | | | | [...] [facility] | [address] | [place], [place] | | | UNIV PTH - INTFC | | [address] | | + + + + + [...] [facility] | [address] | [place] [address] | | | SERVICES, CENTER FOR | [...] | | | | | determined by [employer] | | | | | | Laboratories. See | | | | | | Compliance Statement B: | | | | | | Enervee/CSPerformed | | | | | | by [employer],[address] | | | | | | [place], [place] | | | | | | [address] | | | | | | [phone].F?rsat Bu F?rsat. | | | | | | Jeffrey [...] [facility] | [address] | [place], [place] | | | UNIV PTH - INTFC | | [address] | | + + + + + [...] + + | [facility] | [address] [facility] | [place] [address] | | | SERVICES, CORE | PARK [...] [facility] | [address] | [place] [address] | | | SERVICES, CORE | ABEBA [...] | + + + + + | [facility] | [address] | [place] [address] | | | SERVICES, SPECIAL | ABEBA [...] | [facility] | | considered for monitoring termite control representative glycemic control in patients with: | LABORATORY [...] | + + + + + | [facility] | [address] | [place] [address] | | | SERVICES, SPECIAL | PARK [...] | + + + + + | [facility] | [address] | [place] [address] | | | SERVICES, CORE | ABEBA [...] | | | | | determined by [employer] | | | | | | Laboratories. See | | | | | | Compliance Statement B: | | | | | | F?rsat Bu F?rsat.DivX/CSPerformed | | | | | | by 8digits,[address] | | | | | | [place], [facility] [place] | | | | | | [address] | | | | | | [phone].Zupplerlab. | | | | | | Jeffrey [...] [facility] | [address] | [place], [place] | | | UNIV PTH - INTFC | | [address] | | + + + + + [...] | | | LABORATORY | | | [facility] | | | SERVICES, | | | [...] NICOLE VALDOVINOS | [address] | [place] [address] | | | [facility] | | | | | HEALTH [...]
--- OUTSIDE RECORDS SUMMARY | ~2020-03-12 | XMS | Encounter Summary ---
Demographics + + + | Address | [address] | | | [place] [address] | + + + | Home Phone | | + + + | Preferred Language | Unknown | + + + | Marital Status | | + + + | Adventist Affiliation | 1027 | + + + | Race | Unknown | + + + | Ethnic Group | Unknown | + + + Author + + + | Author | [facility] | | | and Maverickana | + + + | Organization | [facility] | | | [...] Team Providers + +------+ + | Care Candy Spreader Helper Name | Role | Phone | [...] | | | left upper | | [address] | | | | | extremity, | | Phone: | | | | | including | | [phone] | | | | | shoulder | | Fax: | | | | | Procedures | | [phone] | | | | | HI EXC TUMOR | | | | | | | SOFT TISSUE | | | | | | | UPPER | | | | | | | ARM/ELBOW | | | | | | | SUBQ 3+CM | | | | | | | HI EXC SKIN | | | | | [...] | | | INTRA MA[address] | [address] | LEFT BASAL CELL | | | | [address] | [place] | CARCINOMA EXCISION | | | | [place] | | | | | | [phone] | [phone] | | | | | | | [...] number, call our answering service at [phone]. Discharge Instructions: After Your Surgery You ve [...] do not take laxatives unless your surg treas has prescribed them. Drinking alcohol and taking [...] interact with your prescription medicines or other plcr-skk-lbbjrpg (OTC) drugs. Some pr escription medicines have [...] REPORT CASE: | CELLNETI X | | [id number]: Tiffanie Leighathology Report [id number]: | | | Tiffanie Valentin Date of [...] mass or lesion | | | isidentified. Human Resources Talent Manager sections are submitted as follows: A1 | [...] - centralareas with | | | hemorrhage. ([id number]) Dominique Ordaz M.D. | | | Electronically signed 11/20/2015 19:55 Performed at | | | [facility], [facility] [place] [address] | | | CLIA#: [id number] ADDENDUM: #1 FLUORESCENCE IN-SITU HYBRIDIZATION | | | (FISH) STUDIES:Source: Block [id number]: Cells of interest Name | | | [...] | | found to harboramplification of the 16b15-96 region, which includes | | | the [...] is | | | determined and a MDM2/SDJ40rrulf is calculated for each case. A | [...] 405Extremity-based Tumors. Am J Surg Pathol 2010; 34:3943-8364. | | | Methodology: Fluorescence in situ hybridization (FISH) for MDM2 | | | geneamplification (using MDM2/CEP12 probes and the UrgentRxs | | | Metaferautomated scanning fluorescent microscope) is performed at | | | [place] [address]. Test results should be used in | | | conjunction with other availablelaboratory and clinical information. | | | This test was developed and itsperformance characteristics determined | | | by the Molecular PathologyLaboratory, [facility] | | | Laboratories. It has [...] Cheryl Ortiz MD. | | | Electronically ghohlr2011/23/2015 16:02 Performed at | | | [facility],[address] [place] [address], [place], | | | [place] [address] CLIA#:[id number]: Unless otherwise | | | specified, a microscopic exam has been performed. Received Date: | | | 01/26/2016Collection Date: 11/17/2015Referring Physician: Jamar IRVIN, | | | Guille Roninova [facility] Physician copies: | | | | | | | | | | | |Several studies have shown that molecular analysis refines the | | |classification of lipomatous tumors and is useful to discriminate | | |lipomas from atypical lipomatous tumor/well-differentiated liposarcoma | | |(ALT/WDL). Well-differentiated liposarcomas have been found to harbor | | |amplification of the 79t98-41 region, which includes the MDM2 (murine | [...] |Extremity-based Tumors. Am J Surg Pathol 2010; 34:5318-6900. | | | | | |Methodology: Fluorescence in situ hybridization (FISH) for MDM2 gene | | |amplification (using MDM2/CEP12 probes and the UrgentRxs Metafer | | |automated scanning fluorescent microscope) is performed at [employer] [facility], | | |[place]. [address]. | | | | | |Test results should be used in conjunction with other available | | |laboratory and clinical information. This test was developed and its | | |performance characteristics determined by the Molecular Pathology | | |Laboratory, [facility]. It has not been approved [...] signed | | |11/23/2015 16:02 Performed at [facility], | | |[facility]4 [address] Curtis StreetIA#: | | |[id number] | | |Microscopic: Unless otherwise specified, a [...] REFERENCE LAB | [address] | [place] [address] | [phone] | | [facility] | 200 | | [...]
--- OUTSIDE RECORDS SUMMARY | ~2020-03-12 | XMS | Clinical Summary ---
Demographics + + + | Address | [address] | | | [place] [address] | + + + | Home Phone [...] | Organization | [facility] | [...] Team Providers + +------+ + | Care Screening Nurse Name | Role | Phone | [...] +--------+ +--------+ +---------+--------+ | LIFE | | [id number] | | [phone] | | Indemn | | | MDCR | | 016-Pr | 0 | | ity | | | SUPPL | | esent | | | | + +--------+ +--------+ +---------+--------+ | MEDICARE | MEDICA | [id number] | 06/23/20 | [phone] | | Medica [...] | 1950 | [phone] | [place] [address] | | | fabian | | | 7 (Home) | | | | | | | [phone] | | | | | | | 2 (Work) | | + +--------+ +--------+ + + Advance Directives + + + + + | Type | Date Recorded | Patient | Explanation | | | | Lead Applications Developer | | + + + + + | Power of | | | | | Animal Assisted Therapist | | | | + + + [...]
--- OUTSIDE RECORDS SUMMARY | ~2020-03-12 | XMS | Encounter Summary ---
Demographics + + + | Address | [address] | | | [place] [address] | + + + | Home Phone [...] Team Providers + +------+ + | Care Ditcher Operator Name | Role | Phone | + +------+ + | Stephanie Washington | PCP | | + +------+ + Encounter Details +--------+ + + + + | Date | Type | Department | Care Team | Description | +--------+ + + + + | 07/08/ | Abstract | Digestive Health | Clinic, Surgery | | | 2019 | | [place] [facility] [address] | | | | | | [address] | | | | | | Mailcode: [place] | | | | | | for Health and | | | | | | Healing, [address] | | | | | | [place], [place] | | | | | | [address] | | | | | | [phone] | | | +--------+ + + + [...]
--- OUTSIDE RECORDS SUMMARY | ~2020-03-12 | XMS | Encounter Summary ---
Demographics + + + | Address | [address] | | | [place] [address] | + + + | Home Phone [...] + + + | Author | [facility] | + + + | Organization | [facility] | + + + | Address | Unknown | + + + | Phone | Unavailable | + + + Support + + +---------+ + | Name | Relationship | Address | Phone | + + +---------+ + | Marifer Valentin | ECON | Unknown | | + + +---------+ + Care Team Providers + +------+ + | Care Shuttle Repairer Name | Role | Phone | + +------+ + PCP | Unavailable | + +------+ + Encounter Details +--------+ + + + + | Date | Type | Department | Care Team | Description | +--------+ + + + + | 11/30/ | Abstract | Digestive Health | Clinic, Surgery | | | 2019 | | [place] [facility] [address] | | | | | | [address] | | | | | | Mailcode: [place] | | | | | | Health and | | | | | | Healing, [address] | | | | | | [place], [place] | | | | | | [address] | | | | | | [phone] | | | +--------+ + + + [...]
--- OUTSIDE RECORDS SUMMARY | ~2020-03-12 | XMS | Encounter Summary ---
Demographics + + + | Address | [address] | | | [place] [address] | + + + | Home Phone | | + + + | Preferred Language | Unknown | + + + | Marital Status | | + + + | Yazdanism Affiliation | 1027 | + + + | Race | Unknown | + + + | Ethnic Group | Unknown | + + + Author + + + | Author | [facility] | | | and Maverickana | + + + | Organization | [facility] | | | and [...] Providers + +------+ + | Care Client Service Coordinator Name | Role | Phone | [...] [facility] IP | [address] | | | | | [address] | [address] | | | | | [place], | [place] [address] | | | | | [place] [address] | [phone] | | | | | [phone] | | | +--------+ + + + [...]
--- OUTSIDE RECORDS SUMMARY | ~2020-03-12 | XMS | Encounter Summary ---
Demographics + + + | Address | [address] | | | [place] [address] | + + + | Home Phone | | + + + | Preferred Language | Unknown | + + + | Marital Status | Single | + + + | Islam Affiliation | Unknown | + + + [...] Team Providers + +------+ + | Care Pensions Retirement Plan Specialist Name | Role | Phone | + +------+ + PCP | Unavailable | + +------+ + Encounter Details +--------+ + + + + | Date | Type | Department | Care Team | Description | +--------+ + + + + | 11/30/ | Abstract | Digestive Health | Clinic, Surgery | | | 2019 | | [place] [facility] [address] | | | | | | [address] | | | | | | Mailcode: [place] | | | | | | [facility] Health and | | | | | | Healing, [address] | | | | | | [place], [place] | | | | | | [address] | | | | | | [phone] | | | +--------+ + + + [...]
--- OUTSIDE RECORDS SUMMARY | ~2020-03-12 | XMS | Encounter Summary ---
Demographics + + + | Address | [address] | | | [place] [address] | + + + | Home Phone [...] | Organization | [facility] [...] Team Providers + +------+ + | Care Sliver Handler Name | Role | Phone | + [...] | | | | | | | [place] CATH | | | | | | | PLACE/CORON | | | | | | | ANGIO, IMG | | | | | | | SUPER/INTERP | | | | | | | ,W LEFT | | | | | | | HEART | | | | | | | VENTRICULOGR | | | | | | | APHY [place] PRQ | | | | | | | TRLUML | | | | | | | CORONARY | | | | | | | STENT | | | | | | | W/ANGIO ONE | | | | | | | ART/BRNCH | | | | | | | [place] PRQ | | | | | | [...] + + | 01/02/ | Hospital | OLEMA | Kiko Jzoef | | | 2015 | Encounter | [facility] CV | MD [address]ette [address] | | | | | INTRA [address] | Spurgeon [place] | | | | | [place] | [address] | | | | | [address] | [phone] | | | | | [phone] | | | +--------+ + + + [...] Physician Discharge Summary Patient ID: Tiffanie Valentin [id number] y.o. 1950 Admit date: 01/02/2015 Discharge date and time: No discharge date for patient encounter. Admitting Physician: Jozef Hoover MD Discharge Physician: Jozef Hoover MD [facility] Interventional Cardiology [place], [place] Admission Diagnoses: Nonspecific abnormal unspecified cardiovascular [...] this e ncounter Discharge Instructions Instructions Tiffani Rilye RN - 01/02/2015 Cardiac Catheterization: Radial Artery [...] present. Please notify your MD and/or your Financial Cost Analyst if any of the follo wing [...] + | Jozef Hoover MD 01/02/2015 9:22 [facility] | [facility] | | [facility] CARDIAC CATHETERIZATION REPORT PATIENT | | | NAME: | | | Tiffanie Valentin DATE OF : | | | 1950 MEDICAL | | | RECORD NUMBER: [id number] | | | DATE OF PROCEDURE: | | | 01/02/2015 FACILITY: | | | [facility] | | | [place], [place] | | | | | | PRIMARY CARE PROVIDER: | | | Peng Fink PRIMARY CARTOGRAPHIC AIDE: | | | Jozef Hoover MD [facility] Interventional Cardiology | | | [place] RECRUITMENT INTERNSHIP: | | | Dr. Jozef Hoover MD | | | [facility] PRE-PROCEDURE DIAGNOSIS: | | | abnormal [...] and anesthetized with 1% lidocaine. A 6 lao sheath was | | | placed into the right radial artery A 6 lao pigtail cathether was | | | advanced into the left ventricle, pressures were measured, and left | | | ventriculography was performed. Standard angiography was performed | | | in multiple views using 6 Lithuanian tiger catheter to engage the | | [...] Jozef Siddiqui | | | MD Kiko [facility] Interventional Cardiology Jose [place] | | | [place] 01/02/2015 9:20 | | + + + [...] | | | | 324 mg, Oral, RETAIL SERVICE TECHNICIAN, Starting | | 15 7:29 | | [...] | mLs | | | | Intravenous, RETAIL SERVICE TECHNICIAN, Starting | | AM PDT | | [...]
--- OUTSIDE RECORDS SUMMARY | ~2020-03-12 | XMS | Encounter Summary ---
Demographics + + + | Address | [address] | | | [place] [address] | + + + | Home Phone [...] Organization | [facility] | | | and [...] Team Providers + +------+ + | Care Traffic Control Specialist Name | Role | Phone | [...] | | | left upper | | [address] | | | | | extremity, | | Phone: | | | | | including | | [phone] | | | | | shoulder | | Fax: | | | | | Procedures | | [phone] | | | | | MD EXC TUMOR | | | | | | | SOFT TISSUE | | | | | | | UPPER | | | | | | | ARM/ELBOW | | | | | | | SUBQ 3+CM | | | | | | | MD EXC SKIN | | | | | [...] | | | INTRA MAIN [address] | [facility] [address] | LEFT BASAL CELL | | | | [address] | [place] | CARCINOMA EXCISION | | | | [place] | | | | | | [phone] | [phone] | | | | | | | [...] interact with your prescription medicines or other zshf-szm-ljgibyn (OTC) drugs. Some pr escription medicines have [...] REPORT CASE: | CELLNETI X | | [id number]: Tiffanie Leighathology Report [id number]: | | | Tiffanie Valentin Date of [...] mass or lesion | | | isidentified. Assistant Portfolio Manager sections are submitted as follows: A1 [...] - centralareas with | | | hemorrhage. ([id number]) Dominique Ordaz M.D. | | | Electronically signed 11/20/2015 19:55 Performed at | | | [facility], [facility] [place] [address] | | | CLIA#: [id number] ADDENDUM: #1 FLUORESCENCE IN-SITU HYBRIDIZATION | | | (FISH) STUDIES:Source: Block X31Rloafrxyhn: Cells of interest Name | | | [...] | | found to harboramplification of the 97b06-35 region, which includes | | | the [...] is | | | determined and a MDM2/LZK98wmyqr is calculated for each case. A | [...] 405Extremity-based Tumors. Am J Surg Pathol 2010; 34:3812-7272. | | | Methodology: Fluorescence in situ hybridization (FISH) for MDM2 | | | geneamplification (using MDM2/CEP12 probes and the Act[employer] Digitals | | | Metaferautomated scanning fluorescent microscope) is performed at | | | [place]. [address]. Test results should be used in | | | conjunction with other availablelaboratory and clinical information. | | | This test was developed and itsperformance characteristics determined | | | by the Molecular PathologyLaboratory, [facility] | | | Laboratories. It [...] Cheryl Ortiz MD. | | | Electronically mgngwj8911/23/2015 16:02 Performed at | | | [facility],[address] [place] [address], [place], | | | [place] [address] CLIA#:[id number]: Unless otherwise | | | specified, a microscopic exam has been performed. Received Date: | | | 01/26/2016Collection Date: 11/17/2015Referring Physician: Jamar IRVIN, | | | Guille Ronmary [facility] Physician copies: | | | | | | | | | | | |Several studies have shown that molecular analysis refines the | | |classification of lipomatous tumors and is useful to discriminate | | |lipomas from atypical lipomatous tumor/well-differentiated liposarcoma | | |(ALT/WDL). Well-differentiated liposarcomas have been found to harbor | | |amplification of the 31l27-86 region, which includes the MDM2 (murine | [...] |Extremity-based Tumors. Am J Surg Pathol 2010; 34:1559-0139. | | | | | |Methodology: Fluorescence in situ hybridization (FISH) for MDM2 gene | | |amplification (using MDM2/CEP12 probes and the Actus Digitals Metafer | | |automated scanning fluorescent microscope) is performed at [facility], | | |[place]. [address]. | | | | | |Test results should be used in conjunction with other available | | |laboratory and clinical information. This test was developed and its | | |performance characteristics determined by the Molecular Pathology | | |Laboratory, [facility]. It has not been approved [...] signed | | |11/23/2015 16:02 Performed at [facility], | | |[facility]4 [address]IA#: | | |[id number] | | |Microscopic: Unless otherwise specified, a microscopic exam has been performed. | | | | | |Received Date: 11/17/2015 | | |Collection Date: 11/17/2015 | | |Referring Physician: Jamar IRVIN, Guille [place] | | |Additional Physician copies: | | + + -------+ + + + + + | Performing | Address | City/State[facility] | Phone Number | | Organization | | | | + + + + + | REFERENCE LAB | [address] | [place] [address] | [phone] | | [facility] | [address] | | [...]
--- OUTSIDE RECORDS SUMMARY | ~2020-03-12 | XMS | Encounter Summary ---
Demographics + + + | Address | [address] | | | [place] [address] | + + + | Home Phone | | + + + | Preferred Language | Unknown | + + + | Marital Status | | + + + | Sikhism Affiliation | 1027 | + + + | Race | Unknown | + + + | Ethnic Group | Unknown | + + + Author + + + | Author | [facility] | | | and Maverickana | + + + | Organization | [facility] | | [...] Team Providers + +------+ + | Care Lumber Cutter Name | Role | Phone | + [...] | | | left upper | | [address] | | | | | extremity, | | Phone: | | | | | including | | [phone] | | | | | shoulder | | Fax: | | | | | Procedures | | [phone] | | | | | [place] EXC TUMOR | | | | | | | SOFT TISSUE | | | | | | | UPPER | | | | | | | ARM/ELBOW | | | | | | | SUBQ 3+CM | | | | | | | [place] EXC SKIN | | | | | [...] + + | 11/17/ | [facility] | [place], | Basal cell carcinoma | | 2016 | Encounter | [facility] | MD [address] | of shoulder, left | | | | [facility] [address] | [address] | (Primary Dx); Soft | | | | [address] | [place] | tissue mass | | | | [place] [address] | [address] | | | | | [phone] | | | | | | | [...] interact with your prescription medicines or other nfhy-ezt-agszvij (OTC) drugs. Some pr escription medicines have [...] REPORT CASE: | CELLNETI X | | [id number]: Tiffanie CatalinoGuthrie Clinicathology Report [id number]: | | | Tiffanie Valentin Date of [...] mass or lesion | | | isidentified. Dampproofer sections are submitted as follows: A1 | [...] - centralareas with | | | hemorrhage. ([facility]/[id number]) Dominique Ordaz M.D. | | | Electronically signed 11/20/2015 19:55 Performed at | | | [facility]-[address] [address] | | | CLIA#: [id number] ADDENDUM: #1 FLUORESCENCE IN-SITU HYBRIDIZATION | | | (FISH) STUDIES:Source: Block O83Zifaqbvnsh: Cells of interest Name | | | [...] | | found to harboramplification of the 09m46-06 region, which includes | | | the [...] is | | | determined and a MDM2/YFB77pdixo is calculated for each case. A | [...] 405Extremity-based Tumors. Am J Surg Pathol 2010; 34:4033-6234. | | | Methodology: Fluorescence in situ hybridization (FISH) for MDM2 | | | geneamplification (using MDM2/CEP12 probes and the [employer] | | | Metaferautomated scanning fluorescent microscope) is performed at | | | [place]. [address]. Test results should be used in | | | conjunction with other availablelaboratory and clinical information. | | | This test was developed and itsperformance characteristics determined | | | by the Molecular PathologyLaboratory, [facility] | | | Laboratories. It has [...] Cheryl Ortiz MD. | | | Electronically ryaxip9111/23/2015 16:02 Performed at | | | [facility],[address] [place] [address] [address], [place], | | | [place] [address] CLIA#:[id number]: Unless otherwise | | | specified, a [...] to harbor | | |amplification of the 41e36-43 region, which includes the MDM2 (murine | [...] |Extremity-based Tumors. Am J Surg Pathol 2010; 34:3621-3337. | | | | | |Methodology: Fluorescence in situ hybridization (FISH) for MDM2 gene | | |amplification (using MDM2/CEP12 probes and the Rambuss Metafer | | |automated scanning fluorescent microscope) is performed at [facility], | | |[place]. [address]. | | | | | |Test results should be used in conjunction with other available | | |laboratory and clinical information. This test was developed and its | | |performance characteristics determined by the Molecular Pathology | | |Laboratory, [facility]. It has not been [...] signed | | |11/23/2015 16:02 Performed at [facility], | | |[address] [place] [address]#: | | |[id number] | | |Microscopic: Unless otherwise specified, a microscopic exam has been performed. | | | | | |Received Date: 11/17/2015 | | |Collection Date: 11/17/2015 | | |Referring Physician: Guille Roldan MD | | |Additional Physician copies: | | + + -------+ + + + + + | Performing | Address | City/State/[facility]ercode | Phone Number | | Organization | | | | + + + + + | REFERENCE LAB | [address] | [place] [address] | [phone] | | [facility] | [address] | | [...]
--- OUTSIDE RECORDS SUMMARY | ~2020-03-12 | XMS | Encounter Summary ---
Demographics + + + | Address | [address] | | | [place] [address] | + + + | Home Phone | | + + + | Preferred Language | Unknown | + + + | Marital Status | Single | + + + | Advent Affiliation | Unknown | + + + [...] Team Providers + +------+ + | Care Forge Heater Name | Role | Phone | + [...] [place] | | | | | ([facility]) | Rd | Center for | | | | | Procedures | [place], [place] | Health and | | | | | CONSULT TO | [address] | Healing, | | | | | BARIATRIC | Phone: | Building 2 | | | | | SURGERY | [phone] | [place], [place] | | | | | | Fax: | [address] | | | | | | [phone] | Phone: | | | | | | | [phone] | | | | | | | Fax: | | | | | | | [phone] | + +--------+ + + + + Encounter Details +--------+---------+ + + + | Date | Type | Department | Care Team | Description | +--------+---------+ + + + | 07/18/ | Office | Digestive Health | Shoshana Paniagua, | Severe obesity (BMI | | 2019 | Visit | Center at [facility] [address] | [address] | >= 40) ([facility]) | | | | [facility] | [address] | (Primary Dx) | | | | for Health and | [place], [place] | | | | | [facility] 2 | [address] | | | | | [place], [place] | | | | | | [address] | | | | | | [phone] | | | +--------+---------+ + + + [...] of Visit: 2:00 until 3:01 (61 minutes [id number]-[id number] with patient) SUBJECTIVE: Pt comes in alone. [...] Diet pepsi 4pm 4 Prunes 7pm [facility] Grilled chicken salad with [facility] dressing + 20 oz crystal [...] 2 pre-surgery classes. 4. Call or send Zencoder message to dietitian with any questions. Contact information was provided. Follow up with dietitian 1-2 weeks after surgery at first post-op visit. Shoshana Paniagua MS, RDN, CSOWM, LD, CDE [facility] Bariatrics [phone] documented in this e ncounter Plan of Treatment Not on filedocumented as of this encounter Procedures + +--------+ + + + | Procedure Name | Priori | Date/Time | Associated Diagnosis | Comments | | | ty | | | | + +--------+ + + + | [place] MNT INITIAL | Routin | 07/18/2019 | Severe obesity | | | ASSESSMNT X15MIN | e | 3:03 PM | (BMI >= 40) ([facility]) | | | | | PDT | | | + +--------+ + + + documented in this encounter Visit Diagnoses + + | Diagnosis | + + | Severe obesity (BMI >= 40) (HCC) - Primary Morbid obesity | + + documented in this encounter
--- OUTSIDE RECORDS SUMMARY | ~2020-03-12 | XMS | Encounter Summary ---
Demographics + + + | Address | [address] | | | [place] [address] | + + + | Home Phone [...] Organization | [facility] | | [...] Team Providers + +------+ + | Care Radiation Engineer Name | Role | Phone | [...] MED CTR CV | MD Janette [address] | CORONARIES/CORONARY | | | | INTRA OP [address] | [place] | INTERVENTION | | | | [place] | [address] | | | | | | [phone] | | | | | [phone] | | | +--------+---------+ + + + [...] Physician Discharge Summary Patient ID: Tiffanie Valentin [id number] y.o. 1950 Admit date: 01/02/2015 Discharge date and time: No discharge date for patient encounter. Admitting Physician: Jozef Hoover MD Discharge Physician: Jozef Hoover MD [facility] Interventional Cardiology [place], [place] Admission Diagnoses: Nonspecific abnormal unspecified cardiovascular [...] present. Please notify your MD and/or your Filter Operator if any of the follo wing [...] + | Jozef Hoover MD 01/02/2015 9:22 [facility] | [facility] | | [facility] CARDIAC CATHETERIZATION REPORT PATIENT | | | NAME: | | | Tiffanie Valentin DATE OF : | | | 1950 MEDICAL | | | RECORD NUMBER: [id number] | | | DATE OF PROCEDURE: | | | 01/02/2015 FACILITY: | | | [facility] | | | [place], [place] | | | | | | PRIMARY CARE PROVIDER: | | | Peng Fink PRIMARY STAVE SAW OPERATOR: | | | Jozef Hoover MD [facility] Interventional Cardiology | | | [place], [place] SAP ABAP DEVELOPER: | | | Dr. Jozef Hoover MD | | | [facility] PRE-PROCEDURE DIAGNOSIS: | | | abnormal [...] and anesthetized with 1% lidocaine. A 6 gabonese sheath was | | | placed into the right radial artery A 6 gabonese pigtail cathether was | | | advanced into the left ventricle, pressures were measured, and left | | | ventriculography was performed. Standard angiography was performed | | | in multiple views using 6 Bulgarian tiger catheter to engage the | | [...] Jozef Siddiqui | | | MD Kiko [facility] Interventional Cardiology [place] | | | [place], [place] 01/02/2015 9:20 | | + + [...] | | | | 324 mg, Oral, SECURITY AND COMPLIANCE PROJECT MANAGER, Starting | | 15 7:29 | [...] | mLs | | | | Intravenous, SECURITY AND COMPLIANCE PROJECT MANAGER, Starting | | AM PDT | [...]
--- OUTSIDE RECORDS SUMMARY | ~2020-03-12 | XMS | Encounter Summary ---
Demographics + + + | Address | [address] | | | [place] [address] | + + + | Home Phone [...] Team Providers + +------+ + | Care Records Management Assistant Name | Role | Phone | [...]
--- OUTSIDE RECORDS SUMMARY | ~2020-03-12 | XMS | Encounter Summary ---
Demographics + + + | Address | [address] | | | [place] [address] | + + + | Home Phone [...] [facility] [...] Team Providers + +------+ + | Care Crm Functional Analyst Name | Role | Phone | [...] [address] | | | | | [place] EXC SKIN | | [address] | | | | | [place] | | Phone: | | | | | 2.1-3CM | | [phone] | | | | | TRUNK,ARM,LE | | Fax: | | | | | G NC SPLIT | | [phone] | | | | | GRFT | [...] | | | | | [address] | [address], | | | | | [address] | [place] [address] | | | | | [place] | [phone] | | | | | [phone] | | | +--------+ + + + [...] CORONARIES/CORONARY INTERVENTION; Surgeon: Jozef Hoover MD; Location: [facility] CARDIOVASCULAR LAB Carpal tunnel release Left 11/19/2007 Dr. Trey Morrell Carpal tunnel release Right 10/04/2007 Dr. Trey Morrell Eye surgery Bilateral cataracts with lens implant Skin full graft Right 10/07/2015 Procedure: EXCISION OF RIGHT UPPER BACK BASAL CELL CARCINOMA; Surgeon: Sundeep Lee MD; Location: [facility] [place] ALLERGIES: Review of patient's allergies indicates no [...] appointment: Appointment with Dr. Lee at the [facility] in the [facility] in 1 week as scheduled. Activity: No [...] up: Follow-up with Dr. Lee at the [facility], 2nd Floor on 10/13 at 8:00am. Please [...] dependent perso n for the next 24 hours.:[id number]} documented in this encounter Medications at Time [...] | | 65Date of : 1950 CASE: [id number]: Tiffanie | CELLNETI X | | [facility] [id number]: Tiffanie Valentin | | | Date of [...] scar is 0.9cm from the deep margin. Salvage Winder | | | sections are submitted asfollows: A1 - tips; A2-A8 - entire lesion | | | blocked out. (pam/[id number]) Jackson Vivar M.D. Electronically | | | signed 10/09/2015 13:07 Performed at [facility] | | | [place] [address] CLIA#: | | | [id number]: Unless otherwise specified, a microscopic exam | | | has been performed. Received Date: 10/07/2015Collection Date: | | | 10/07/2015Referring Physician: Jesus IRVIN, Sundeep [facility] | | | Physician copies: [...] | | |cm from the deep margin. Salvage Winder sections are submitted as | | |follows: A1 - tips; A2-A8 - entire lesion blocked out. (pam/[id number]) | | | | | | | | | | | | | | | Jackson Vivar M.D. Electronically signed 10/09/2015 13:07 ([id number]) | | |[phone] Performed at [facility] Pathology[address], | | |[place] [address] [facility]#: [id number] | | |Microscopic: Unless otherwise specified, a [...] + | REFERENCE LAB | [address] [facility] [address] | [place] [address] | [phone] | | CELLNETIX | [address] | | [...]
--- OUTSIDE RECORDS SUMMARY | ~2020-03-12 | XMS | Encounter Summary ---
Demographics + + + | Address | [address] | | | [place] [address] | + + + | Home Phone [...] Team Providers + +------+ + | Care Foot Gatherer Name | Role | Phone | + [...] Bill | | | | | | [place], [place] | | | | | | [address] | | | | | | [phone] | | | +--------+------+ + + + [...] section. | | | | | (FORMERLY [facility]) Depression, | | | | | | [...] section. | | | | | ([facility]ERLY [facility]) Depression, | | | | | | [...] B: | | | | | | Aigou/CSPerformed | | | | | | by Ratio,500 | | | | | | [facility] | | | | | | [address] | | | | | | [phone].[employer]ix. | | | | | | mountain [...] [facility] | [address] | [place], [place] | | | UNIV PTH - INTFC | | [address] | | + + + + + [...] [facility] | | | (ROC [place]LEX[place]) | Ratio,500 | | REG UNIV | | | SERUM | Jamie Soria, [facility] | | PTH - INTFC | | | | [address] | | | | | | [phone].VividCortexlab. | | | | | | Jeffrey [...] B: | | | | | | [employer]CS | | | | + + + + + + + + | Specimen | + + | Blood - Blood | | (substance) | + + + + + + + | Performing | Address | City/State/Zipcode | Phone Number | | Organization | | | | + + + + + | [facility] | [address] | [place], [place] | | | UNIV PTH - INTFC | | [address] | | + + + + + [...] | + + + + + | [facility] | [address] | [place] [address] | | | SERVICES, CORE | [address] | | | + + + [...] | + + + + + | [facility] | [address] [facility] | [place] [address] | | | DEANDRE, ROSALIA | ABEBA [...] | | | | | determined by [employer] | | | | | | Laboratories. See | | | | | | Compliance Statement B: | | | | | | [employer]CSPerformed | | | | | | by Ratio,500 | | | | | | [facility] | | | | | | [address] | | | | | | [phone].[employer]. | | | | | | com, [...] + | [facility] | [address] [facility] | [place], [place] | | | UNIV PTH - INTFC | | [address] | | + + + + + [...] INTFC | | | | determined by [employer] | | | | | | [employer]Predict. See | | | | | | Compliance Statement B: | | | | | | Aigou/CSPerformed | | | | | | by Ratio,500 | | | | | | [place], [place] | | | | | | [address] | | | | | | [phone].Prime Gridlab. | | | | | | Jeffrey [...] [facility] | [address] | [place], [place] | | | UNIV PTH - INTFC | | [address] | | + + + + + [...] | + + + + + | [facility] | [address] | [place] [address] | | | SERVICES, FIRTH FOR | | | | | HEALTH [...] | | | | | determined by [employer] | | | | | | [employer]Predict. See | | | | | | Compliance Statement B: | | | | | | [employer]CSPerformed | | | | | | by Ratio,500 | | | | | | [facility],[place] | | | | | | [address] | | | | | | [phone].TiGenix. | | | | | | mountain [...] [facility] | [address] | [place], [place] | | | UNIV PTH - INTFC | | [address] | | + + + + + [...] [facility] | [address] | [place] [address] | | | SERVICES, CORE | PARK [...] [facility] | [address] | [place] [address] | | | SERVICES, CORE | PARK [...] | + + + + + | [facility] | [address] | [place] [address] | | | SERVICES, SPECIAL | ABEBA [...] | + + + + + | [facility] | [address] | [place] [address] | | | SERVICES, SPECIAL | PARK [...] | + + + + + | [facility] | [address] | [place] [address] | | | DEANDRE, ROSALIA | ABEBA [...] | | | | | determined by [facility] | | | | | | Laboratories. See | | | | | | Compliance Statement B: | | | | | | [employer]CSPerformed | | | | | | by Ratio,500 | | | | | | [facility],[place] | | | | | | [address] | | | | | | [phone].VividCortexlab. | | | | | | com, [...] [facility] | [address] | [place], [place] | | | UNIV PTH - INTFC | | [address] | | + + + + + [...] SERVICES, | | | | | | FIRTH FOR | | | | | | [...] | | | LABORATORY | | | [place] ISLANDER | | | SERVICES, | | | [...] MDRD equation recommended by the National | [facility] | | Kidney Disease Education Program. Estimated [...] | + + + + + | [facility] | [address] | [place] [address] | | | [facility] | | | | | HEALTH + HEALING | | | | + + + + + documented in this encounter Visit Diagnoses Not on filedocumented in this encounter"
--- OUTSIDE RECORDS SUMMARY | ~2020-03-12 | XMS | Encounter Summary ---
Demographics + + + | Address | [address] | | | [place] [address] | + + + | Home Phone [...] Team Providers + +------+ + | Care Assault Boat Coxswain Name | Role | Phone | + [...] | | | | ([facility]) | Rd | Center for | | | | | Procedures | [place], [place] | Health and | | | | | CONSULT TO | [address] | Healing, | | | | | BARIATRIC | Phone: | Building 2 | | | | | SURGERY | [phone] | [place], [place] | | | | | | Fax: | [address] | | | | | | [phone] | Phone: | | | | | | | [phone] | | | | | | | Fax: | | | | | | | [phone] | + +--------+ + + + + Encounter Details +--------+---------+ + + + | Date | Type | Department | Care Team | Description | +--------+---------+ + + + | 07/18/ | Office | Digestive Health | Shoshana Paniagua, | Severe obesity (BMI | | 2019 | Visit | Center at [facility] [address] | [address] | >= 40) ([facility]) | | | | [facility] | [address] | (Primary Dx) | | | | for Health and | [place], [place] | | | | | [facility] 2 | [address] | | | | | [place], [place] | | | | | | [address] | | | | | | [phone] | | | +--------+---------+ + + + [...] of Visit: 2:00 until 3:01 (61 minutes [id number] with patient) SUBJECTIVE: Pt comes in alone. [...] Diet pepsi 4pm 4 Prunes 7pm [facility] Grilled chicken salad with [facility] dressing + 20 oz crystal ligh [...] 2 pre-surgery classes. 4. Call or send FusionOps message to dietitian with any questions. Contact information was provided. Follow up with dietitian 1-2 weeks after surgery at first post-op visit. Shoshana Paniagua MS, RDN, CSOWM, LD, CDE [facility] Bariatrics [phone] documented in this e ncounter Plan of Treatment Not on filedocumented as of this encounter Procedures + +--------+ + + + | Procedure Name | Priori | Date/Time | Associated Diagnosis | Comments | | | ty | | | | + +--------+ + + + | [place] MNT INITIAL | Routin | 07/18/2019 | Severe obesity | | | ASSESSMNT X15MIN | e | 3:03 PM | (BMI >= 40) ([facility]) | | | | | PDT | | | + +--------+ + + + documented in this encounter Visit Diagnoses + + | Diagnosis | + + | Severe obesity (BMI >= 40) (HCC) - Primary Morbid obesity | + + documented in this encounter
--- OUTSIDE RECORDS SUMMARY | ~2020-03-12 | XMS | Encounter Summary ---
Demographics + + + | Address | [address] | | | [place] [address] | + + + | Home Phone [...] Team Providers + +------+ + | Care Welfare Adviser Name | Role | Phone | + +------+ + PCP | Unavailable | + +------+ + Encounter Details +--------+ + + + + | Date | Type | Department | Care Team | Description | +--------+ + + + + | 12/12/ | Ladies Suit Operator | Digestive Health | Marita Hadley, | Hiatal hernia with | | 2019 | | Center at [facility] [address] | MD [address] | GERD and esophagitis | | | | [address] | [place], [place] | (Primary Dx) | | | | Mailcode: [place] | [address] | | | | | for Health and | [phone] | | | | | [facility] 2 | | | | | | [place], [place] | | | | | | [address] | | | | | | [phone] | | | +--------+ + + + [...] + + + | EXAM: Esophagram with tank builder helper radiograph HISTORY: Hiatal hernia | [facility] | [...] Note | + + | Service Account, Do It In Person Res In Interface - 06/14/2019 2:39 PM PDT EXAM: Esophagram | | with tank builder helper radiograph HISTORY: Hiatal hernia with GERD COMPARISON: [...]
--- OUTSIDE RECORDS SUMMARY | ~2020-03-12 | XMS | Encounter Summary ---
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 | | [address] | | | | | trunk | | [address] | | | | | Procedures | | [place] | | | | | CT EXC SKIN | | [address] | | | | | [place] | | Phone: | | | | | 2.1-3CM | | [phone] | | | | | TRUNK,ARM,LE | | Fax: | | | | | G CT SPLIT | | [phone] | | | | | GRFT | [...] Event | [facility] [place] | WOOD FLOOR REFINISHER [address] | | | | | INTRA MA[address] | [address] [place] | | | | | [address] | | | | | | [place] | [place] Mcallister, | | | | | | WOOD FLOOR REFINISHER [address] | | | | | | [...] 0951 | | 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
--- OUTSIDE RECORDS SUMMARY | ~2020-03-12 | XMS | Encounter Summary ---
Demographics + + + | Address | [address] | | | [place] [address] | + + + | Home Phone [...] + | Organization | [facility] | | | and [place] [...] Team Providers + +------+ + | Care College [employer] Registrar Name | Role | Phone | [...] | [facility] IP | [address] | | | | | GENERIC [address] | [address] | | | | | [place], | [phone] | | | | | [place] [address] | | | | | | [phone] | | | +--------+ + + + [...]
--- OUTSIDE RECORDS SUMMARY | ~2020-03-12 | XMS | Clinical Summary ---
Demographics + + + | Address | [address] | | | [place] [address] | + + + | Home Phone [...] Organization | [facility] | | | and [...] Team Providers + +------+ + | Care Section Housekeeper Name | Role | Phone | + [...] +--------+ +--------+ +---------+--------+ | LIFE | | [id number] | | [phone] | | Indemn | | | MDCR | | 016-Pr | 0 | | ity | | | SUPPL | | esent | | | | + +--------+ +--------+ +---------+--------+ | MEDICARE | MEDICA | [id number] | 06/23/20 | [phone] | | Medica [...] | 1950 | [phone] | [place] [address] | | | fabian | | | 7 (Home) | | | | | | | [phone] | | | | | | | 2 (Work) | | + +--------+ +--------+ + + Advance Directives + + + + + | Type | Date Recorded | Patient | Explanation | | | | Professor Of Theater | | + + + + + | Power of | | | | | Registered Nurse Maternity | | | | + + + [...]
--- OUTSIDE RECORDS SUMMARY | ~2020-03-12 | XMS | Encounter Summary ---
Demographics + + + | Address | [address] | | | [place] [address] | + + + | Home Phone [...] Team Providers + +------+ + | Care Pest Control Supervisor Name | Role | Phone [...] | 2019 | on | Center at [facility] [address] | | | | | | [address] | | | | | | Mailcode: [place] | | | | | | for Health and | | | | | | Healing, Building 2 | | | | | | [place], [place] | | | | | | [address] | | | | | | [phone] | | | +--------+ + + + [...]
--- OUTSIDE RECORDS SUMMARY | ~2020-03-12 | XMS | Encounter Summary ---
Demographics + + + | Address | [address] | | | [place] [address] | + + + | Home Phone [...] | Organization | [facility] | [...] Team Providers + +------+ + | Care Composition Teacher Name | Role | Phone | [...] [facility] IP | [address] [facility] [address] | | | | | GENERIC CONV [address] | [address] | | | | | [place], | [address] | | | | | [place] [address] | | | | | | [phone] | | | +--------+ + + + [...]
--- OUTSIDE RECORDS SUMMARY | ~2020-03-12 | XMS | Encounter Summary ---
Demographics + + + | Address | [address] | | | [place] [address] | + + + | Home Phone [...] Organization | [facility] | | [...] Team Providers + +------+ + | Care Textile Dyer Name | Role | Phone | [...] [facility] IP | [address] [facility] | | | | | GENERIC CONV [address] | [address] | | | | | [place], | [place] [address] | | | | | [place] [address] | [phone] | | | | | [phone] | | | +--------+ + + + [...]
--- OUTSIDE RECORDS SUMMARY | ~2020-03-12 | XMS | Encounter Summary ---
Demographics + + + | Address | [address] | | | [place] [address] | + + + | Home Phone | | + + + | Preferred Language | Unknown | + + + | Marital Status | Single | + + + | Voodoo Affiliation | Unknown | + + + [...] Team Providers + +------+ + | Care Consumer Relations Specialist Name | Role | Phone | [...] | | Hernia, | Stephanie Lam, | [facility] [address] | | | | | hiatal | [place] [address] | | | | | | [place] | Mailcode: | | | | | | [place], | [facility] | | | | | | [place] [address] | [facility] and | | | | | | Phone: | Healing, | | | | | | [phone] | Building 2 | | | | | | Fax: | [place], [place] | | | | | | [phone] | [address] | | | | | | | Phone: | | | | | | | [phone] | | | | | | | Fax: | | | | | | | [phone] | +--------+--------+ + + + + Encounter [...] [address] | | | | | [address] | [place], [place] | | | | | Mailcode: CH3P | [address] | | | | | [facility] | | | | | | and Benjamin, | | | | | | [facility] | | | | | | Floor [place], [place] | | | | | | [address] | | | | | | [phone] | | | +--------+---------+ + + + [...] care for t he certification period documented. [facility] PHYSICAL THERAPY EVALUATION Past Medical History: [...] Moderate - Moderate complexity Complexity: Moderate - 06613 The patient requires services that can be [...] change in their status. Emily Joyner, PT,DPT [facility]YSICAL THERAPY SERVICES AT [facility] Scheduled Appointment time: 2:30 PM The patient was seen for a total of 45 minutes of treatment time. 45 minutes was in direct contact care as described above and on completed flow sheets. Treatment Interventions duration in minutes: Procedure:Physical Therapy Evaluation and Ther apeutic Activities 15 min Authorization information for first visit and progress reports Procedure Codes: Re-evaluation 33862, Therapeutic Exercise 97309, Manual Therapy 09200, Th erapeutic Activities 11478, Neuromuscular Reeducation 78710, Gait Training 39532 and Self-ca re ADL 60222 Minutes per session: 45 Total number of visits: 1 visit only Frequency: 1 visit only Duration: n/a (must exceed or match Medicare service period reques t) Service period from: 08/19/2019 to: 08/19/2019 (Medicare must match duration or be no gre ater than 90 days if proposed duration is greater than 3 months) Start of care: 08/19/2019 Referral information Authorizing Provider: ANGELI BARRERA [[id number]] Onset/Referral Date: 07/08/19 Primary/Referral Diagnosis: E66.01 Severe [...] ACTIVITIES | e | 3:39 PM | ([facility]) | | | | | PDT | | | + +--------+ + + + documented in this encounter Visit Diagnoses + + | Diagnosis | + + | Severe obesity (HCC) - Primary Morbid obesity | + + documented in this encounter
--- OUTSIDE RECORDS SUMMARY | ~2020-03-12 | XMS | Encounter Summary ---
Demographics + + + | Address | [address] | | | [place] [address] | + + + | Home Phone [...] Team Providers + +------+ + | Care B2B Sales Professional Name | Role | Phone | + [...] Medical Records | | 2019 | | [place] at [facility] [address] | | Review | | | | [address] | | | | | | Mailcode: [place] | | | | | | [facility] | | | | | | [facility] 2 | | | | | | [place], [place] | | | | | | [address] | | | | | | [phone] | | | +--------+ + + + [...]
--- OUTSIDE RECORDS SUMMARY | ~2020-03-12 | XMS | Clinical Summary ---
Demographics + + + | Address | [address] | | | [place] [address] | + + + | Home Phone [...] Author + + + | Author | [facility] | + + + | Organization | [facility] | + + + | Address | Unknown | + + + | Phone | Unavailable | + + + Support + + +---------+ + | Name | Relationship | Address | Phone | + + +---------+ + | Marifer Valentin | ECON | Unknown | | + + +---------+ + Care Team Providers + +------+ + | Care Terminal Gauger Name | Role | Phone | + +------+ + | Stephanie Washington | PCP | | + +------+ + Source Comments NICOLE is fully live on both [facility] Ambulatory and [facility] InPatient.[facility] Allergies No Known Allergies Medications + [...] | MODA | xxxxxxxxx | 10/23/19 | [phone] | [address] | PPO | | | MEDICA | | 20-Pre | 4 | [address] | | | | RE PPO | | sent | | [place], | | | | | | | | [place] [address] | | + +--------+ +--------+ + +------+ + +--------+ +--------+ + + | Guarantor Name | Accoun | Relation to | Date | Phone | Billing Address | | | t Type | Patient | of | | | | | | | | | | + +--------+ +--------+ + + | Tiffanie Valentin | Person | Self | [birth year] | [address] | | | al/Fam | | 1949 | [phone] | [place] | | | fabian | | | 8 (Home) | [address] | + +--------+ +--------+ + +
--- OUTSIDE RECORDS SUMMARY | ~2020-03-12 | XMS | Encounter Summary ---
Demographics + + + | Address | [address] | | | [place] [address] | + + + | Home Phone [...] Providers + +------+ + | Care Customer Specialist Name | Role | Phone | + +------+ + | tSephanie Washington | PCP | | + +------+ [...] | | | | | | | [place], [place] | | | | | | | [address] | | | | | | | Phone: | | | | | | | [phone] | | | | | | | Fax: | | | | | | | [phone] | + +--------+ + + + + Encounter Details +--------+---------+ + + + | Date | Type | Department | Care Team | Description | +--------+---------+ + + + | 12/20/ | Office | Digestive Health | Marita Hadley, | Gastroesophageal | | 2020 | Visit | [facility] at [facility] [address] | MD [address] | reflux disease, | | | | [address] | [place], [place] | esophagitis presence | | | | Mailcode: Center | [address] | not specified | | | | for Health and | [phone] | (Primary Dx); Morbid | | | | [facility] 2 | | obesity with BMI of | | | | [place], [place] | | 45.0-49.9, adult | | | | [address] | | ([facility]) | | | | [phone] | | | +--------+---------+ + + + [...] Name: Tiffanie Valentin : 1950 Medical Record: [id number] ID: Tiffanie Valentin is a 69-year-old female [...] file Gets together: Not on file Attends taoism service: Not on file Active member of club or organization: Not on file Attends meetings of clubs or organizations: Not on file Relationship status: Not on file Other Topics Concern Not on file Social History Narrative 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 Lives at home with daughter an [...] the fellow s note. Marita Hadley MD [facility] [address] [facility] Mailcode: [place] [address] documented in this encounter Plan of Treatment Not on filedocumented as of this encounter Visit Diagnoses + + | Diagnosis | + + | Gastroesophageal reflux disease, esophagitis presence not specified - Primary | + + | Morbid obesity with BMI of 45.0-49.9, adult ([facility]) | + + documented in this encounter
--- OUTSIDE RECORDS SUMMARY | ~2020-03-12 | XMS | Encounter Summary ---
Demographics + + + | Address | [address] | | | [place] [address] | + + + | Home Phone [...] Team Providers + +------+ + | Care Police Lieutenant Precinct Name | Role | Phone | + [...] Pain | Diagnoses | Jay Jay, | Electrical And Instrument Engineer Psych | | Review | | Management | Morbid | ROSIO White | Ch[address]1 [address] | | | | | obesity with | [address] | | | | | BMI of | [address] | Mailcode: | | | | | 45.0-49.9, | [place], [place] | [facility] Center | | | | | adult ([facility]) | [address] | for Health | | | | | Depression, | Phone: | and Healing, | | | | | unspecified | [phone] | Building 1, | | | | | depression | Fax: | 15th Floor | | | | | type | [phone] | [place], [place] | | | | | Hypertension | | [address] | | | | | , | | Phone: | | | | | unspecified | | [phone] | | | | | type | | Fax: | | | | | Obstructive | | [phone] | | | | | sleep apnea [...] | [facility] | | | with MATTRESS RENOVATOR | | obesity (BMI | [address] | Ch[address]2 [address] | | | | | >= 40) | Angel Thompson | [address] | | | | | ([facility]) | Rd | Mailcode: | | | | | Procedures | [place], [place] | [place] for | | | | | CONSULT TO | [address] | Health and | | | | | BARIATRIC | Phone: | Healing, | | | | | SURGERY | [phone] | [facility] 2 | | | | | | Fax: | [place], [place] | | | | | | [phone] | [address] | | | | | | | Phone: | | | | | | | [phone] | | | | | | | Fax: | | | | | | | [phone] | + + + + + + + Encounter Details +--------+---------+ + + + | Date | Type | Department | Care Team | Description | +--------+---------+ + + + | 08/19/ | Office | Digestive Health | Cindy Goyal, | Morbid obesity with | | 2019 | Visit | [facility] | DIRECTOR OF COMMUNITY CENTER [address] | BMI of 45.0-49.9, | | | | [address] | [place], [place] | adult ([facility]) (Primary | | | | Mailcode: Center | [address] | Dx); Depression, | | | | for Health and | | unspecified | | | | Healing, Building 2 | | depression type; | | | | [place], [place] | | Hypertension, | | | | [address] | | unspecified type; | | | [...] go to the 1st floor of the [facility] 2 building and have these labs done. [...] Pre-op Psychological Evaluation: Your referral is at [facility], the Pain Management Office mikayla [...] request from your PCP to a local embossing press operator and have copies of the office visit no nitesh and any test results faxed to us. If you have an established embossing press operator, we will need official documentation from them iden tifying your cardiac risk stratification prior to surgery. + Weight Management classes: 2 classes are required in addition to your private appointment with the printer operator. These classes will be scheduled apporoximately [...] weight. 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 Lives at home with daughter an [...] medicated, last lipid panel 06/28/19. Denies CHF, PR, ischemic heart disea se, DVT/PE, or pulmonary hypertension. States unable to climb two flights of stairs due to her knees. 12/05/14 NM Myocardial Perfusion Scan Pharmacologic at the [facility]: FINAL IMPRESSION: 1. Abnormal study. 2. [...] response to Lexiscan. 01/02/15 Interventional Cardiology at [facility]: PROCEDURES PERFORMED: 1. Left Heart Catheterization for [...] and anesthetized with 1% lidocaine. A 6 nauruan sheath was placed into the right radial artery A 6 nauruan pigtail cathether was advanced into the left ventricle, pressures were measured, and left ventriculography was performed. Standard angiography was performed in multiple views using 6 Uruguayan tiger catheterto engage the left and right [...] jaundice. Pt had an EGD in [place] 07/16/18 that she states was followed by a capsule endoscopy a c ouple of months later. The EGD report is in [place], no capsule endoscopy report available. Addit ionally she had an UGI done at the time of her appt with our Foregut team. 06/14/19 Xray Esophagram at [facility]: IMPRESSION: Stomach containing sliding-type large hiatal hernia. 07/16/18 EGD at [facility] ([place], [place]): 07/16/18 Pathology: Abd surgeries: lap oophorectomy [...] bariatric surgery. Records have been reviewed from [facility] and several attempts have been made [...] date here on 07/18/19 wit h our printer operator, for a preop weight loss goal of 15 pounds -pt counseled on the possible risk of GERD symptoms after sleeve gastrectomy -pt counseled on the risk of marginal ulcers with RYGB and the need to abstain from NSAIDs post surgery as these increase risk of ulcers #Incisional hernia -reviewed red flags and when to seek care [facility]D/Hiatal hernia -subjective improvement of the [...] go to the 1st floor of the [facility] 2 building and have these labs done. [...] Pre-op Psychological Evaluation: Your referral is at [facility], the Pain Management Office mikayla [...] request from your PCP to a local embossing press operator and have copies of the office visit no nitesh and any test results faxed to us. If you have an established embossing press operator, we will need official documentation from them iden tifying your cardiac risk stratification prior to surgery. + Weight Management classes: 2 classes are required in addition to your private appointment with the printer operator. These classes will be scheduled apporoximately [...] weight. + My Chart Sign up for [employer] so that we can communicate easily back [...] other providers does not guarantee that the [facility] Bariatric Surger y program will [...] GWEN Robb, MPH Bariatric Surgery Nurse Practitioner [facility] | [address] | [place], [place] | [address] | documented in this encounter Plan of [...] | | | | s | | ([facility]) Depression, | [...] results section. | | | | | ([facility] [...] results section. | | | | | ([facility] [...] | + + + + + | [facility] | [address] | [place] [address] | | | SERVICES, [place] [facility] | | | | | HEALTH [...] | | | | determined by [facility] | | | | | | Laboratories. See | | | | | | Compliance Statement B: | | | | | | DeepField[employer].com/CSPerformed | | | | | | by [address] | | | | | | [place], [facility] [place] | | | | | | [address] | | | | | | [phone].DeepFieldlab. | | | | | | com, [...] + + | [facility] | [address] [facility] [address] | [place], [place] | | | UNIV PTH - INTFC | | [address] | | + + + + + [...] [facility] | | | (ROC ALEXIS) | [facility],[address] | | REG UNIV | | | SERUM | [facility] [place], [place] | | PTH - INTFC | | | | [address] | | | | | | [phone].Skill-Lifeuplab. | | | | | | Jeffrey [...] B: | | | | | | Cluster HQ/CS | | | | + + + + + + + + | Specimen | + + | Blood - Blood | | (substance) | + + + + + + + | Performing | Address | City/State/Zipcode | Phone Number | | Organization | | | | + + + + + | [facility] | [address] | [place], [place] | | | UNIV PTH - INTFC | | [address] | | + + + + + [...] | + + + + + | [facility] | [address] | [place] [address] | | | SERVICES, CORE | PARK [...] | + + + + + | [facility] | [address] | [place] [address] | | | SERVICES, ROSALIA | ABEBA [...] | | | | determined by [facility] | | | | | | Laboratories. See | | | | | | Compliance Statement B: | | | | | | [employer]/CSPerformed | | | | | | by [facility],[address] | | | | | | [facility] | | | | | | [address] | | | | | | [phone].[employer]. | | | | | | st. [...] [facility] | [address] | [place], [place] | | | UNIV PTH - INTFC | | [address] | | + + + + + [...] [facility] | | | | | | [employer]. See | | | | | | Compliance Statement B: | | | | | | [employer]/CSPerformed | | | | | | by [address] | | | | | | [place], [facility] [place] | | | | | | [address] | | | | | | [phone].[employer]. | | | | | | [facility]. mark's hospitaleJffrey MD, | | | | | | [...] [facility] | [address] | [place], [place] | | | UNIV PTH - INTFC | | [address] | | + + + + + [...] [facility] | [address] | [place] [address] | | | SERVICES, CENTER FOR | [...] | | | | | determined by [employer] | | | | | | Laboratories. See | | | | | | Compliance Statement B: | | | | | | Cluster HQ/CSPerformed | | | | | | by [address] | | | | | | [place], [place] | | | | | | [address] | | | | | | [phone].[employer] Traxx. | | | | | | Jeffrey [...] [facility] | [address] | [place], [place] | | | UNIV PTH - INTFC | | [address] | | + + + + + [...] + + | [facility] | [address] | [place] [address] | | | SERVICES, CORE | PARK [...] [facility] | [address] | [place] [address] | | | SERVICES, CORE | ABEBA [...] | + + + + + | [facility] | [address] | [place] [address] | | | SERVICES, SPECIAL | ABEBA [...] | [facility] | | considered for monitoring exterminator helper glycemic control in patients with: | LABORATORY [...] | + + + + + | [facility] | [address] | [place] [address] | | | SERVICES, SPECIAL | PARK [...] | + + + + + | [facility] | [address] | [place] [address] | | | SERVICES, CORE | ABEBA [...] | | | | | determined by [employer] | | | | | | Laboratories. See | | | | | | Compliance Statement B: | | | | | | [employer]/CSPerformed | | | | | | by [address] | | | | | | [place], [facility] [place] | | | | | | [address] | | | | | | [phone].DeepFieldlab. | | | | | | Jeffrey [...] [facility] | [address] | [place], [place] | | | UNIV PTH - INTFC | | [address] | | + + + + + [...] | | | LABORATORY | | | VINCENTIAN | | | SERVICES, | | | [...] NICOLE VALDOVINOS | [address] | [place] [address] | | | [facility] | | | | | HEALTH + [...]
--- OUTSIDE RECORDS SUMMARY | ~2020-03-12 | XMS | Encounter Summary ---
Demographics + + + | Address | [address] | | | [place] [address] | + + + | Home Phone | | + + + | Preferred Language | Unknown | + + + | Marital Status | Single | + + + | Mosque Affiliation | Unknown | + + + | Race | White | + + + | Ethnic Group | Not or | + + + Author + + + | Author | [facility] | + + + | Organization | [facility] | + + + | Address | Unknown | + + + | Phone | Unavailable | + + + Support + + +---------+ + | Name | Relationship | Address | Phone | + + +---------+ + | Marifer Valentin | ECON | Unknown | | + + +---------+ + Care Team Providers + +------+ + | Care Stoper Name | Role | Phone | + [...] Medical Records | | 2019 | | [place] [facility] [address] | | Review | | | | [address] | | | | | | Mailcode: [place] | | | | | | [facility] Health and | | | | | | [facility] 2 | | | | | | [place], [place] | | | | | | [address] | | | | | | [phone] | | | +--------+ + + + [...]
--- OUTSIDE RECORDS SUMMARY | ~2020-03-12 | XMS | Encounter Summary ---
Demographics + + + | Address | [address] | | | [place] [address] | + + + | Home Phone | | + + + | Preferred Language | Unknown | + + + | Marital Status | | + + + | Jew Affiliation | 1027 | + + + | Race | Unknown | + + + | Ethnic Group | Unknown | + + + Author + + + | Author | [facility] | | | and [place] | + + + | Organization | [facility] [...] Team Providers + +------+ + | Care Molder Helper Name | Role | Phone | [...] | [facility] [place] | [address] | | | | | [address] | [address] | | | | | [address] | [address] | | | | | SAR[address] | | | | | | [phone] | | | +--------+ + + + [...] #: | | | | | | [phone] : | | | | | | 1950 | | | | | | | | | | | | Received:07/20/2005 | | | | | | Accession #: | | | | | | [id number] Clinician: | | | | | | [...] SNOMED | | | | | | T-34874, | | | | | | T-44141, [id number], | | | | | | M-48894, T-1A110 | | | | | | [...] dimensions. | | | | | | Engagement Mgr sections | | | | | | [...] REFERENCE LAB | [address] | [place] [address] | [phone] | | [facility] | [address] | | | + + + + + | [facility] - | [address] [place] [address] NE | [place] [address] | [phone] | | [place] | | | | + + + + + documented in this encounter Visit Diagnoses Not on filedocumented in this encounter
--- OUTSIDE RECORDS SUMMARY | ~2020-03-12 | XMS | Encounter Summary ---
Demographics + + + | Address | [address] | | | [place] [address] | + + + | Home Phone [...] Team Providers + +------+ + | Care Insulation Manager Name | Role | Phone | [...] | Pain | Diagnoses | Goyal, | Residential Plumber Psych | | Review | | Management | Morbid | Cindy, WARD NURSE | Chh1 [address] | | | | | obesity with | [address] | | | | | BMI of | [address] | Mailcode: | | | | | 45.0-49.9, | [place], [place] | [facility] Center | | | | | adult (HCC) | [address] | for Health | | | | | Depression, | Phone: | and Healing, | | | | | unspecified | [phone] | Building 1, | | | | | depression | Fax: | 15th Floor | | | | | type | [phone] | [place], [place] | | | | | Hypertension | | [address] | | | | | , | | Phone: | | | | | unspecified | | [phone] | | | | | type | | Fax: | | | | | Obstructive | | [phone] | | | | | sleep apnea [...] 10/25/ | Office | [facility] | Beatriz Sanches | Morbid obesity with | | 2020 | Visit | [address] | Alicia, PhD [address] | BMI of 45.0-49.9, | | | | Mailcode: CH15P | [place], [place] | adult ([facility]) (Primary | | | | Center for Health | [address] | Dx); Depression, | | | | and Healing, | [phone] | unspecified | | | | | | depression type | | | | Floor [facility] [place] | | | | | | [address] | | | | | | [phone] | | | +--------+---------+ + + + [...] a 69 y.o. female who lives in [facility]. wi th her daughter and granddaughter. [...] small portions. She is going to a [employer] support group f or weight management and [...] per week. 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 The p [...] C hronic knee pain Mental Status: Tiffanie Valentni arrived on time for the appointment dressed [...] She reports her father was an alcoholic. Yarsani was a jeancarlos ce of support and [...] 3. She should continue with following the mobile battery technician's recommendations, and is encourged to improve her [...] with the patient was approximately 55 minutes kgbj-mr-vcrf with the maciel ent, and approximately 15 minutes of administering testing and 1 hour and 20 minutes of non- xnnn-ct-eofi interpreting and synthesizing results. Beatriz Sanches, PhD [facility] 15TH FLOOR [address] Mailcode: [place] [address] documented in thi s encounter [...] QHP; FIRST 30 MIN | | | ([facility]) Depression, | | | | [...] adult | | | | | | ([facility]) Depression, | | | | [...] adult | | | | | | ([facility]) Depression, | | | | | | unspecified | | | | | | depression type | | + +--------+ + + + documented in this encounter Visit Diagnoses + + | Diagnosis | + + | Morbid obesity with BMI of 45.0-49.9, adult ([facility]) - Primary | + + | Depression, unspecified depression type | + + documented in this encounter"
--- OUTSIDE RECORDS SUMMARY | ~2020-03-12 | XMS | Encounter Summary ---
Demographics + + + | Address | [address] [place] | | | [place] [address] | + + + | Home Phone [...] + | Organization | [facility] | | | and Maverickana [...] Team Providers + +------+ + | Care Buccaro Name | Role | Phone | + [...] [address] | | | | | ID EXC SKIN | | [id number] | | | | | [place] | | Phone: | | | | | 2.1-3CM | | [phone] | | | | | TRUNK,ARM,LE | | Fax: | | | | | G ID SPLIT | | [phone] | | | | | GRFT | [...] | CELL CARCINOMA | | | [address] | [place] [address] | | | | | [place] | [phone] | | | | | | | [...] CELL CARCINOMA; Surgeon: Sundeep Lee MD; Location: [facility] [place] ALLERGIES: Review of patient's allergies indicates no [...] appointment: Appointment with Dr. Lee at the [facility] in the [facility] in 1 week as scheduled. Activity: No [...] with Dr. Lee at the [facility], 2nd Floor on 10/13 at 8:00am. Please [...] dependent perso n for the next 24 hours.:[id number]} documented in this encounter Medications at Time [...] | | 65Date of : 1950 CASE: [id number]: Tiffanie | [facility] X | | [facility] [id number]: Tiffanie Valentin | | | Date of [...] scar is 0.9cm from the deep margin. Circuit Breaker Assembler | | | sections are submitted asfollows: A1 - tips; A2-A8 - entire lesion | | | blocked out. (pam/[id number]) Jackson Vivar M.D. Electronically | | | signed 10/09/2015 13:07 Performed at [facility] | | | [place] [address] CLIA#: | | | [id number]: Unless otherwise specified, a microscopic exam | | | has been performed. Received Date: 10/07/2015Collection Date: | | | 10/07/2015Referring Physician: Jesus IRVIN, Sundeep [facility] | | | Physician copies: | | [...] | | |cm from the deep margin. Circuit Breaker Assembler sections are submitted as | | |follows: A1 - tips; A2-A8 - entire lesion blocked out. (pam/[id number]) | | | | | | | | | | | | | | | Jackson Vivar M.D. Electronically signed 10/09/2015 13:07 (292) | | |[phone] Performed at [facility], [address] [place] [address], | | |[place] [address] [facility]#: [id number] | | |Microscopic: Unless otherwise specified, a [...] | [address] [facility] | [place] [address] | [phone] | | [place] | 200 | | | + + [...]
--- OUTSIDE RECORDS SUMMARY | ~2020-03-12 | XMS | Encounter Summary ---
Demographics + + + | Address | [address] | | | [place] [address] | + + + | Home Phone [...] Organization | [facility] [...] Team Providers + +------+ + | Care Slate Trimmer Name | Role | Phone | + [...] | [facility] OR | [address] | | | | | [address] | [address] [place] | | | | | [address] | [address] | | | | | [place] | | | | | | [phone] | | | +--------+ + + + [...] #: | | | | | | [id number] : | | | | | | 1950 | | | | | | | | | | | | Received:07/20/2005 | | | | | | Accession #: | | | | | | [id number] Clinician: | | | | | | [...] SNOMED | | | | | | [id number], | | | | | | [id number], [id number], | | | | | | [id number], [id number] | | | | | | [...] dimensions. | | | | | | Clinical Data Management Director sections | | | | | | [...] + + | REFERENCE LAB | [address] | [place] [address] | [phone] | | [facility] | 200 | | | + + + + + | [facility] - | [address] [place] [address] NE | [place] [address] | [phone] | | [place] | | | | + + + + + documented in this encounter Visit Diagnoses Not on filedocumented in this encounter
--- OUTSIDE RECORDS SUMMARY | ~2020-03-12 | XMS | Encounter Summary ---
Demographics + + + | Address | [address] | | | [place] [address] | + + + | Home Phone [...] Team Providers + +------+ + | Care Die Maker Trim Name | Role | Phone | + [...]
--- OUTSIDE RECORDS SUMMARY | ~2020-03-12 | XMS | Encounter Summary ---
Demographics + + + | Address | [address] | | | [place] [address] | + + + | Home Phone [...] Organization | [facility] | | [...] Team Providers + +------+ + | Care Career Services Manager Name | Role | Phone | [...] | [facility] IP | [address] | | | | | [address] | [address] | | | | | [place], | [place] [address] | | | | | [place] [address] | [phone] | | | | | [phone] | | | +--------+ + + + [...]
--- OUTSIDE RECORDS SUMMARY | ~2020-03-12 | XMS | Encounter Summary ---
Demographics + + + | Address | [address] | | | [place] [address] | + + + | Home Phone | | + + + | Preferred Language | Unknown | + + + | Marital Status | | + + + | Baptist Affiliation | 1027 | + + + | Race | Unknown | + + + | Ethnic Group | Unknown | + + + Author + + + | Author | [facility] | | | and [place] | + + + | Organization | [facility] | | | and [...] Team Providers + +------+ + | Care Scrub Woman Name | Role | Phone | + [...] | | | | | | | [place] CATH | | | | | | | PLACE/CORON | | | | | | | ANGIO, IMG | | | | | | | SUPER/INTERP | | | | | | | ,W LEFT | | | | | | | HEART | | | | | | | VENTRICULOGR | | | | | | | APHY [place] PRQ | | | | | | | TRLUML | | | | | | | CORONARY | | | | | | | STENT | | | | | | | W/ANGIO ONE | | | | | | | ART/BRNCH | | | | | | | [place] PRQ | | | | | | [...] + + | 01/02/ | Hospital | [facility] | Kiko Jozef | | | 2015 | Encounter | [facility] CV | MD Janette [address] | | | | | [address] | [place] | | | | | [place] | [address] | | | | | [address] | [phone] | | | | | [phone] | | | +--------+ + + + [...] Physician Discharge Summary Patient ID: Tiffanie Valentin [id number] y.o. 1950 Admit date: 01/02/2015 Discharge date and time: No discharge date for patient encounter. Admitting Physician: Jozef Hoover MD Discharge Physician: Jozef Hoover MD [facility] Interventional Cardiology [place], [place] Admission Diagnoses: Nonspecific abnormal unspecified cardiovascular [...] present. Please notify your MD and/or your Architecture Intern if any of the follo wing occur: [...] + | Jozef Hoover MD 01/02/2015 9:22 [facility] | [facility] | | [facility] CARDIAC CATHETERIZATION REPORT PATIENT | | | NAME: | | | Tiffanie Valentin DATE OF : | | | 1950 MEDICAL | | | RECORD NUMBER: [id number] | | | DATE OF PROCEDURE: | | | 01/02/2015 FACILITY: | | | [facility] | | | [place], [place] | | | | | | PRIMARY CARE PROVIDER: | | | Peng Fink PRIMARY ACCOUNT MANAGER TRAINEE: | | | Jozef Hoover MD [facility] Interventional Cardiology | | | [place], [place] SCHOOL BUS DISPATCHER: | | | Dr. Jozef Hoover MD | | | [facility] PRE-PROCEDURE DIAGNOSIS: | | | abnormal [...] and anesthetized with 1% lidocaine. A 6 nepalese sheath was | | | placed into the right radial artery A 6 nepalese pigtail cathether was | | | advanced into the left ventricle, pressures were measured, and left | | | ventriculography was performed. Standard angiography was performed | | | in multiple views using 6 Greenlandic tiger catheter to engage the | | [...] Jozef Siddiqui | | | MD Kiko [facility] Interventional Cardiology [place] | | | [place] 01/02/2015 9:20 | | + + + [...] | | | | 324 mg, Oral, GOLD LEAF GILDER, Starting | | 15 7:29 | | [...] | mLs | | | | Intravenous, GOLD LEAF GILDER, Starting | | AM PDT | | [...]
--- OUTSIDE RECORDS SUMMARY | ~2020-03-12 | XMS | Encounter Summary ---
Demographics + + + | Address | [address] | | | [place] [address] | + + + | Home Phone [...] Providers + +------+ + | Care Supervisor Prop Making Name | Role | Phone | + +------+ + | Stephanie Washington | PCP | | + +------+ + Encounter Details +--------+ + + + + | Date | Type | Department | Care Team | Description | +--------+ + + + + | 07/11/ | Documentati | Digestive Health | Cindy Goyal, | | | 2019 | on | Center at [facility] [address] | POLICE DEPARTMENT SECRETARY [address] | | | | | [address] | [place], [place] | | | | | Mailcode: Center | [address] | | | | | for Health and | | | | | | [facility], [facility] 2 | | | | | | [place], [place] | | | | | | [address] | | | | | | | [...]
--- OUTSIDE RECORDS SUMMARY | ~2020-03-12 | XMS | Encounter Summary ---
Demographics + + + | Address | [address] | | | [place] [address] | + + + | Home Phone [...] Team Providers + +------+ + | Care Flake Miller Helper Name | Role | Phone | [...]
--- OUTSIDE RECORDS SUMMARY | ~2020-03-12 | XMS | Encounter Summary ---
Demographics + + + | Address | [address] [facility] [facility] | | | [place] [address] | + + + | Home Phone | | + + + | Preferred Language | Unknown | + + + | Marital Status | | + + + | Nondenominational Affiliation | 1027 | + + + | Race | Unknown | + + + | Ethnic Group | Unknown | + + + Author + + + | Author | [facility] | | | and [place] | + + + | Organization | [facility] | | | and [...] Providers + +------+ + | Care Engineer Booster And Exhauster Name | Role | Phone | + [...] MED CTR IP | MD [address] | | | | | [address] | [address] [place] | | | | | [place], | [phone] | | | | | [place] | | | | | | [phone] | | | +--------+ + + + [...]
--- OUTSIDE RECORDS SUMMARY | ~2020-03-12 | XMS | Encounter Summary ---
Demographics + + + | Address | [address] | | | [place] [address] | + + + | Home Phone [...] Providers + +------+ + | Care Elementary Ell Teacher Name | Role | Phone | [...]
--- OUTSIDE RECORDS SUMMARY | ~2020-03-12 | XMS | Encounter Summary ---
Demographics + + + | Address | [address] | | | [place] [address] | + + + | Home Phone [...] Team Providers + +------+ + | Care Paper Cap Machine Operator Name | Role | Phone [...]
--- OUTSIDE RECORDS SUMMARY | ~2020-03-12 | XMS | Encounter Summary ---
Demographics + + + | Address | [address] | | | [place] [address] | + + + | Home Phone [...] + + + | Author | [facility] | + + + | Organization | [facility] | + + + | Address | Unknown | + + + | Phone | Unavailable | + + + Support + + +---------+ + | Name | Relationship | Address | Phone | + + +---------+ + | Marifer Valentin | ECON | Unknown | | + + +---------+ + Care Team Providers + +------+ + | Care Laser Operator Name | Role | Phone | [...] | Mailcode: | | | | | ([facility]) | [place], [place] | Center for | | | | | Procedures | [address] | Health and | | | | | PHYSICAL | Phone: | Healing, | | | | | THERAPY | [phone] | Building 2 | | | | | REFERRAL | Fax: | [place], [place] | | | | | | [phone] | [address] Phone: | | | | | | | [phone] | | | | | | | Fax: | | | | | | | [phone] | + +--------+ + + + + Encounter Details +--------+ + + + + | Date | Type | Department | Care Team | Description | +--------+ + + + + | 07/08/ | Real Estate Clerk | Digestive Health | Cindy Goyal, | Severe obesity (BMI | | 2019 | | Center at [facility] [address] | COMPACTING MACHINE OPERATOR/TENDER [address] | >= 40) ([facility]) | | | | [address] | [place], [place] | (Primary Dx) | | | | Mailcode: [place] | [address] | | | | | for Health and | [phone] | | | | | [facility], [facility] 2 | | | | | | [place], [place] | | | | | | [address] | | | | | | | [...]
--- OUTSIDE RECORDS SUMMARY | ~2020-03-12 | XMS | Encounter Summary ---
Demographics + + + | Address | [address] | | | [place] [address] | + + + | Home Phone [...] Team Providers + +------+ + | Care Plunger Shovel Operator Name | Role | Phone | [...]
--- OUTSIDE RECORDS SUMMARY | ~2020-03-12 | XMS | Encounter Summary ---
Demographics + + + | Address | [address] | | | [place] [address] | + + + | Home Phone | | + + + | Preferred Language | Unknown | + + + | Marital Status | Single | + + + | Episcopal Affiliation | Unknown | + + + [...] Team Providers + +------+ + | Care Pastry Sous Chef Name | Role | Phone | [...]
--- OUTSIDE RECORDS SUMMARY | ~2020-03-12 | XMS | Encounter Summary ---
Demographics + + + | Address | [address] [facility] | | | [place] [address] | + + + | Home Phone | | + + + | Preferred Language | Unknown | + + + | Marital Status | | + + + | Scientology Affiliation | 1027 | + + + | Race | Unknown | + + + | Ethnic Group | Unknown | + + + Author + + + | Author | [facility] | | | and [place] | + + + | Organization | [facility] | | [...] Team Providers + +------+ + | Care Funnel Setter Name | Role | Phone | + [...] | | | | | [address] | [place] | | | | | [place] | [address] | | | | | [address] | | | | | | [phone] | | | +--------+ + + + [...] 07/16/18 1640 by | | jayl | [id number] catheter system; | Mary Carmen Smith, | [...]
--- OUTSIDE RECORDS SUMMARY | ~2020-03-12 | XMS | Encounter Summary ---
Demographics + + + | Address | [address] [facility] | | | [place] [address] | + + + | Home Phone [...] + + | Organization | [facility] | | | and [place] [...] Team Providers + +------+ + | Care Opener Name | Role | Phone | + +------+ + | Marita Albrecht MD | PCP | | + +------+ + Encounter Details +--------+ + + + + | Date | Type | Department | Care Team | Description | +--------+ + + + + | 02[facility]22/ | [facility] | Peng iFnk MD | | | 2009 | Encounter | [facility] IP | [address] | | | | | [address] | [address] [place], | | | | | [place], | [place] [address] | | | | | [place] [address] | | | | | | [phone] | | | +--------+ + + + [...] + + | [place] | [address] | [place] [address] | [phone] | | CORE LABORATORY (I) | | [...] + + | [place] | [address] | [place] [address] | [phone] | | CORE LABORATORY (I) | | | | + + + + + | COLETTE FIGUEROA | | | | [place] | | | | + + + + + documented in this encounter Visit Diagnoses Not on filedocumented in this encounter"
--- OUTSIDE RECORDS SUMMARY | ~2020-03-12 | XMS | Encounter Summary ---
Demographics + + + | Address | [address] | | | [place] [address] | + + + | Home Phone [...] Team Providers + +------+ + | Care Teamcenter Solution Architect Name | Role | Phone | + +------+ + PCP | Unavailable | + +------+ + Encounter Details +--------+ + + + + | Date | Type | Department | Care Team | Description | +--------+ + + + + | 12/12/ | Coatings Inspector | Digestive Health | Marita Hadley, | Hiatal hernia with | | 2019 | | Center at [facility] [address] | MD [address] | GERD and esophagitis | | | | [address] | [place], [place] | (Primary Dx) | | | | Mailcode: [place] | [address] | | | | | for Health and | [phone] | | | | | [facility], [facility] 2 | | | | | | [place], [place] | | | | | | [address] | | | | | | [phone] | | | +--------+ + + + [...] + + + | EXAM: Esophagram with casing operator radiograph HISTORY: Hiatal hernia | [facility] | [...] Note | + + | Service Account, [employer] Res In Interface - 06/14/2019 2:39 PM PDT EXAM: Esophagram | | with casing operator radiograph HISTORY: Hiatal hernia with GERD COMPARISON: [...]
--- OUTSIDE RECORDS SUMMARY | ~2020-03-12 | XMS | Encounter Summary ---
Demographics + + + | Address | [address] | | | [place] [address] | + + + | Home Phone [...] + + + | Author | [facility] | + + + | Organization | [facility] | + + + | Address | Unknown | + + + | Phone | Unavailable | + + + Support + + +---------+ + | Name | Relationship | Address | Phone | + + +---------+ + | Marifer Valentin | ECON | Unknown | | + + +---------+ + Care Team Providers + +------+ + | Care Jacquard Card Lacer Name | Role | Phone | + [...] | | | Cody Bill Mailcode: | [facility] [place] | | | | | [address] | [address] | | | | | Health and Healing, | [phone] | | | | | [facility] | | | | | | Floor [place], [place] | | | | | | [address] | | | | | | [phone] | | | +--------+ + + + [...] + + + | EXAM: Esophagram with account resolution analyst radiograph HISTORY: Hiatal hernia | [facility] | | with GERD COMPARISON: None TECHNIQUE: Radiation dose reduction | RADIOLOGY VOICE | | technique was maximized where appropriate using pulsed fluoroscopy | RECOGNITION 2 | | and fluoro-store images. Fluoro Time: 81 sec FINDINGS: | | | Double contrast images were obtained with the patient upright in GREENLANDIC | | | position. Single contrast images [...] PM PDT EXAM: Esophagram | | with account resolution analyst radiograph HISTORY: Hiatal hernia with GERD COMPARISON: None TECHNIQUE: | | Radiation dose reduction technique was maximized where appropriate using pulsed | | fluoroscopy and fluoro-store images. Fluoro Time: 81 sec FINDINGS: Double contrast | | images were obtained with the patient upright in GREENLANDIC position. Single contrast images | | were [...]
--- OUTSIDE RECORDS SUMMARY | ~2020-03-12 | XMS | Encounter Summary ---
Demographics + + + | Address | [address] [facility] | | | [place] [address] | + + + | Home Phone | | + + + | Preferred Language | Unknown | + + + | Marital Status | | + + + | Jain Affiliation | 1027 | + + + | Race | Unknown | + + + | Ethnic Group | Unknown | + + + Author + + + | Author | [facility] | | | and [place] | + + + | Organization | [facility] | | | and [place] [...] Team Providers + +------+ + | Care Road Train Driver Name | Role | Phone | [...] | | DC EXC SKIN | | [address] | | | | | [place] | | Phone: | | | | | 2.1-3CM | | [phone] | | | | | TRUNK,ARM,LE | | Fax: | | | | | G DC SPLIT | | [phone] | | | | | GRFT | [...] | CELL CARCINOMA | | | | [address] | [place] [address] | | | | | [place] | [phone] | | | | | | | [...] Carpal tunnel release Left 11/19/2007 Dr. Trey Morrlel Carpal tunnel release Right 10/04/2007 Dr. Trey Morrell Eye surgery Bilateral cataracts with lens implant Skin full graft Right 10/07/2015 Procedure: EXCISION OF RIGHT UPPER BACK BASAL CELL CARCINOMA; Surgeon: Sundeep Lee MD; Location: [facility] ALL[facility]GIES: Review of patient's allergies indicates no [...] appointment: Appointment with Dr. Lee at the [facility] in the [facility] in 1 week as scheduled. Activity: [...] up: Follow-up with Dr. Lee at the [facility], 2nd Floor on 10/13 at 8:00am. [...] dependent perso n for the next 24 hours.:[id number]} documented in this encounter Medications at Time [...] | | 65Date of : 1950 CASE: [id number]: Tiffanie | CELLNETI X | | [facility] [id number]: Tiffanie Valentin | | | Date of [...] scar is 0.9cm from the deep margin. Studio Engineer | | | sections are submitted asfollows: A1 - tips; A2-A8 - entire lesion | | | blocked out. (pam/[id number]) Jackson Vivar M.D. Electronically | | | signed 10/09/2015 13:07 Performed at [facility] | | | [place] [address] CLIA#: | | | [id number]: Unless otherwise specified, a microscopic exam | | | has been performed. Received Date: 10/07/2015Collection Date: | | | 10/07/2015Referring Physician: Jesus IRVIN, [facility] | | | Physician copies: | [...] | | |cm from the deep margin. Studio Engineer sections are submitted as | | |follows: A1 - tips; A2-A8 - entire lesion blocked out. (pam/[id number]) | | | | | | | | | | | | | | | Jackson Vivar M.D. Electronically signed 10/09/2015 13:07 (695) | | |[id number] Performed at [facility], [address] [place] [address], | | |[place] [address] [facility]#: [id number] | | |Microscopic: Unless otherwise specified, a [...] + | REFERENCE LAB | [address] [facility] [facility] [facility] | [place] [address] | [phone] | | [facility] | [address] | | | + + [...]
--- OUTSIDE RECORDS SUMMARY | ~2020-03-12 | XMS | Encounter Summary ---
Demographics + + + | Address | [address] | | | [place] [address] | + + + | Home Phone [...] Providers + +------+ + | Care Legal Summer Intern Name | Role | Phone | [...]
--- OUTSIDE RECORDS SUMMARY | ~2020-03-12 | XMS | Encounter Summary ---
Demographics + + + | Address | [address] [facility] | | | [place] [address] | + + + | Home Phone [...] | [facility] | | [...] Team Providers + +------+ + | Care Early Morning Babysitter Name | Role | Phone | + [...] | | | | | | [place] [address] | | | | | | [phone] | | | +--------+ + + + [...]
[~2020-03-12 13:48] MED LIST: ENALAPRIL MALEA20 MG PO; HYDROCHLOROTH12.5 M1; OMEPRAZOLE20 MG PO; ONDANSETRON ODT8 MG PO; PROMETHAZINE HC25 M1 PO; SIMVASTATIN20 MG PO
--- OUTSIDE RECORDS SUMMARY | 2020-03-12 13:50 | XMS ---
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 Pravin has no Care Guidelines for this patient. Kirsty VIS[facility] COUNT (12 MO.) [facility] NOTE: Visits indicate total known visits. ED/C VISIT TRACKING (12 MO.) 03/12/2020 13:48 [facility] [place] [facility] Emergency COMPLAINT: - ABD PAIN 03/10/2020 14:22 [facility] [place] TYPE: Emergency COMPLAINT: - VOMITING INPATIENT VISIT TRACKING (12 MO.) No inpatient visits to display in this time frame [email or web address]
--- NOTE | 2020-03-12 17:00 | NUR ---
Patient arrives to the unit via stretcher. Patient able to ambulate independently to the hospital bed. NS infusing at 125 mls/hr. Patient denies pain, reports slight nausea. Vital signs taken, assessment complete. Patient reports tenderness in abdomen. Hernia noted below umbilicus. SCDs in place. Patient denies needs, call light within reach.
--- NOTE | 2020-03-12 18:00 | NUR ---
Orders acknowledged. IV abx hung, LR hung at 125 mls/hr. 184: Patient reports increase in nausea. 4mg of zofran given IV. Patient reports discomfort in abdomen. IV toradol offered, patient reports "NSAIDS make my stomach hurt." Dr. Aleman called, orders acknowledged for PRN pain medication.
--- NOTE | 2020-03-12 20:23 | NUR ---
COOP WITH ASSESSMENT, UP TO BR, VOIDED, BACK TO BED, SCDS OFF AT THIST MORE, TEMP 99.0, IS INSTRUCTIONS GIVEN, NO C/O ABD PAIN, INCREASED BURPING PRESENT,. NPO FOR AM PROCEDURE, ON VALERO AIR, CPOX IN PLACE
--- NOTE | 2020-03-12 22:09 | NUR ---
c/o 6/10 r abd pain, medicated with morphine 4mg IV, scds back on. on room air, CPOX in place, sats 96%, p69 r16
--- NOTE | 2020-03-12 23:39 | NUR ---
RESTING, NO FURTHER C/O PAIN, O2 2L NC ON REQUESTRS SHE USES A CPAP AT HOME. CALL LIGHT AT BEDSIDE, NPO FOR AM PROCEDURE, DOES OWN MOUTH CARE
--- NOTE | 2020-03-13 02:06 | NUR ---
coop, awake, alet, denies c/o pain, npo, IVF infusing well. npo
--- NOTE | 2020-03-13 04:44 | NUR ---
resting, IVF infusing, O2 2LNC , call lihgt at bedside, scds in place, turn self in bed
--- NOTE | 2020-03-13 05:25 | NUR ---
UP TO BR, VOIDED, CHLORXENEDINE WIPE DOWN COMPLETED, PROCEDURE EXPLAINED, COOP. FRESH LINEN AND GOWN. IVF INFUSING, NO C/O PAIN, REASSURED OF SAFETY SHE WA TEARY EYED, COMFORTABLE AT THIS TIME, TURNS SELF IN BED, O2 2L NC, CPOX IN PLACE, DID OWN MOUTH CARE, NPO FOR AM PROCEDURE
--- NOTE | 2020-03-13 05:40 | NUR ---
PT HAS BEEN NPO FOR AM SURGERY. O2 2L NC AT HS, OFF AT THIS TIME, IVF INFUSING, NO C/O ADVERSE REACTION TO IV ABX.WAS MEDICATED X1 PER R ABD PAIN, EFFECTIVE, SCDS IN PLACE, UP TO BR, VOIDING QS. ANXIOUS ABOUT UPCOMING PROCEDURE, REASSURED, RESTING AT THIS TIME. USES CALL LIGHT APPROPRIATELY
--- NOTE | 2020-03-13 09:30 | NUR ---
SPOKE WITH PATIENT IN ROOM. 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 LIVES WITH DAUGHTER AND GRANDDAUGHTER. SHE HAS A FWW AT THE HOME, DOESN'T USE IT NORMALLY. HER DAUGHTER CAN PICK HER UP AT DISCHARGE. PATIENT FEELS SAFE TO RETURN HOME. PATIENT DENIES PROBLEMS AFFORDING MEDICATIONS, FOOD OR UTILITIES. CM WILL FOLLOW NEEDED.
--- NOTE | 2020-03-13 10:22 | NUR ---
PT DR AMIN A 16FR NGTUBE PLACE TO [facility] AT THIS TIME, PT TOLERATED WELL. SHE DID HAVE SOME SUNSHINE REFLEX AND VOMETING, MORPHINE 4MG IVP GIVE BEFROE PLACEMENT AND 4MG IVP ZOFRAN GIVEN AFTER PLACEMENT. PT IS NOW SETTLED AND XRAY ORDER TO SEE PT IS CORRECT. WE DID HAVE INSTANCE RETURN OF GREEN IN COLOR DRAINAGE. IN TUBE AND CONTAINER.
--- NOTE | 2020-03-13 10:36 | NUR ---
CXR COMPLETED APPERS TO BE IN CORRECT PLACEMENT. WILL WAIT FOR REPORT. PT APPEARS TO BE RESTING COMFORTABLE AT THIS TIME, HOB ABOUT 45% AND OR WILL BE HERE IN ABOUT 1 HOUR.
[2020-03-13] MEDS ORDERED: VENLAFAXINE HCL75 MG PO (10:53)
[2020-03-13] MEDS ORDERED: ASPIRIN EC81 MG PO (11:22)
[2020-03-13] MEDS ORDERED: MULTI VITAMIN1 EACH PO (11:23)
[2020-03-13] MEDS ORDERED: VITAMIN D350 MC3 PO (11:23)
--- NOTE | 2020-03-13 11:24 | NUR ---
MED REC COMPLETE
--- NOTE | 2020-03-13 11:42 | NUR ---
PT TO OR AT THIS TIME.
--- NOTE | 2020-03-13 17:20 | NUR ---
03/13/20 1720 Roya Galvez 1710-PT ARRIVES TO PACU ON RA. O2 SATS SHOW 90% SATURATION. PT PLACED ON 6 L VIA MASK. NG TUBE AND PAUL DRAIN INPLACE. NO MASON. ABD BINDER OVER SURGICAL SITE. VSS. PT RESPONSIVE TO VERBAL STIULUS BUT UNABLE TO ANSWER QUESTIONS. 172-PT LAYING IN BED LOOKING AROUND. VSS.
--- NOTE | 2020-03-13 17:40 | EKG ---
[facility] [address] [facility] [place] [address] Signed Normal sinus rhythm Normal ECG When compared with ECG of 05-JUN-2018 11:10, Nonspecific T wave abnormality now evident in Inferior leads Confirmed by RAND ISABEL MD ([id number]) on 03/13/2020 5:40:14 PM Electronically Signed By: RAND ISABEL MD 03/13/20 1740 PATIENT NAME: ROGELIO FLANAGANAshley ESPINO Electrocardiogram DATE OF : [birth year] PHYSICIAN: RAND IASBEL MD REPORT #: [id number] REPORT IS CONFIDENTIAL AND NOT TO BE RELEASED WITHOUT AUTHORIZATION
--- NOTE | 2020-03-13 17:58 | NUR ---
PT RETURNED FOR OR AT THIS TIME, INDLINE INCISION COVERED WITH ABD BINDER, IT IS CLEAN DRY AND INTACK. PT AWAKE, NG TO LIWS, DENIES PAIN THAT WOULD REQUIRE PAIN MEDS AT THIS TIME.
--- NOTE | 2020-03-13 18:13 | NUR ---
phone call to dr salcedo to inform him that pt was bladder scaned for 52mls, NO NEW ORDERS AT THIS TIME. PT CONTIOUES TO DEINES PAIN.
--- NOTE | 2020-03-13 18:50 | NUR ---
2 Q HOUR VITALS COMPLETED AT THIS TIME, PT RESTING COMFORTABLE AT THIS TIME DENIES AND PAIN.
--- NOTE | 2020-03-13 19:58 | NUR ---
Awake, Was on room air, hob elevated to her comfort, CPOX in place, sasts 90%, Placed on O2 2LNC as pt is to be medicted for pain and going to sleep. Covid-19 negative results. Medicated for 4/10 abd pain discomfort with Morphine 4mg IV. Abd with midline abd dressing covered with opsite and old drainage, PAUL w small amont of ss drainage. abd tender, AMY, pt denies passing gas or burping. abd binder in place. NGT to LIWS R nare patent draining small amount of dark brown drainage, pe denies n/v sensation. tolerating ice chips, will increase to clears. SCDS in place, IVF infusing R arm. pt aware of need to void, denies need for urination at this time. will try again in a couple hours or sooner. Helpful with repositioning
--- NOTE | 2020-03-13 21:37 | NUR ---
DIRECTOR DIGITAL STRATEGY ROUNDING NOTE. PT RESTING IN BED. POST OP VITAL SIGNS OBTAINED. PT DENIES FURTHER NEEDS AT THIS TIME. CALL LIGHT IN REACH. WHITE BOARD UPDATED.
--- NOTE | 2020-03-13 22:30 | HP ---
[facility] [address], [place] [address] Signed ADMISSION DATE: 03/12/2020 REASON FOR ADMISSION: Incarcerated non-strangulated incisional hernia. HISTORY OF PRESENT ILLNESS: This morbidly obese 69-year-old white woman, presented today to the emergency room for the second time this week and seen by Dr. Wiggins for vague abdominal pain and not feeling well. Her evaluation took 2 days before included nausea and vomiting. She has had no bowel movement since that evaluation. She returned to the walk-in clinic of [facility], was sent back to the ER with concerns about possible bowel obstruction. Her putative diagnosis previously was gastritis. A CT scan was performed under the direction of Dr. Wiggins, which indeed showed a rather sizable incisional hernia in the region of the umbilical or infraumbilical area. A fair amount of fat within it and some bowel loop. There did not appear to be obstructed bowel based on no sign of proximal enteric dilation. The patient last ate yesterday actually. Incidental findings include diverticulosis as well as gallstones and a rather large hiatal hernia. PAST MEDICAL HISTORY: Does include pelvic laparotomy with excision of an ovarian cyst. Additionally, she has hypertension, significant morbid obesity, history of left knee operation and tib-fib fracture related to that. She does not drink alcohol and is a former smoker. SOCIAL HISTORY: She lives in [place] with a daughter and grandchild. She is a long-time . She previously lived in [place], has lived in the [place] area for about the past 3 years. REVIEW OF SYSTEMS: She denies any shortness of breath or chest pain. She has no hematemesis or blood per rectum. Does not particularly feel nauseated at this time. PHYSICAL EXAMINATION: GENERAL: This is a morbidly obese white woman, who does not appear to be in distress. VITAL SIGNS: Temperature is 96.7, pulse 80, respirations 16, blood pressure 165/96, pulse oximetry on room air is 96%. NECK: Shows no thyromegaly or cervical adenopathy. CHEST: Shows diminished respiratory excursion. Electronically Signed By: NEELA AMIN MD 03/13/20 8305 PATIENT NAME: REDDY FLANAGAN HISTORY AND PHYSICAL DATE OF : 52 REPORT #: [id number] PHYSICIAN: NEELA AMIN MD PCP: BINTA GUERRA PAC REPORT IS CONFIDENTIAL AND NOT TO BE RELEASED WITHOUT AUTHORIZATION [facility] [address], [place] [address] Signed LUNGS: Clear. HEART: Regular without murmur. ABDOMEN: Quite markedly obese. There is a mildly erythematous area of skin inferior to the umbilicus and a bulky hernia that is not reducible. Various manipulations do show some discomfort, but no signs of peritonitis proper. LABORATORY STUDIES: Show white count 12.6, hematocrit of 45.9, and platelets 240,000. Chem profile shows normal electrolytes. Potassium is 3.5, glucose 121, creatinine 0.77. Liver enzymes are normal. AST low at 12. Lipase is normal at 19. Urinalysis is essentially normal other than 10 white cells per high-power field. The squamous cells with 3+. Her COVID-19 test is pending. I reviewed the CT scan in detail and the report as interpreted by Dr. Black. Findings were noted as above. A large hiatal hernia is noted. There is fatty infiltration of the liver and some hemangiomas or cysts posteriorly in the liver. There were 3 calcified gallstones. There is mild gallbladder distention. There were bilateral renal cysts that are small. A 10 cm anterior abdominal hernia is present below the umbilicus with a loop of small bowel protruding through it was about 32 mm in diameter. There does appear to be some dilation of the bowel. The uterus and ovaries are normal. Interpretation shows "small bowel obstruction" due to the intraabdominal wall hernia. ASSESSMENT: The patient has non-reducible incisional hernia with small bowel loops within it. Mild proximal dilation probably. She likely has had this for several days, though not easily recognized previously due to her extreme obesity. She additionally has a sizable hiatal hernia and gallstones that appear to be asymptomatic. At minimum, she needs to be admitted to the hospital for IV fluids. Consideration is made for a prompt repair of the incisional hernia. She has no signs of strangulation per se or bowel compromise. She is obese enough that the operation is fraught with higher degree of failure chcf. She has just said that she intends to lose weight. A repair that would include reduction of the hernia and implantation of mesh in the properitoneal position with medialization of the fascia would be the most optimal approach for her most likely. Whether this needs to be performed emergently tonight or not is uncertain, but unlikely actually. Decompression of the stomach with a nasogastric tube may be telling as regards to degree of obstruction, which on examination, the CT scan does not appear particularly likely actually at this time. We discussed all this in detail. Electronically Signed By: NEELA AMIN MD 03/13/20 7649 PATIENT NAME: REDDY FLANAGAN HISTORY AND PHYSICAL DATE OF : 52 REPORT #: [id number] PHYSICIAN: NEELA AMIN MD PCP: BINTA GUERRA PAC REPORT IS CONFIDENTIAL AND NOT TO BE RELEASED WITHOUT AUTHORIZATION [address] [place] [address] Signed MD KRISTY Jimenez/CARMELAL /[id number] cc: Mykel Wiggins MD Copies: MYKEL WIGGINS MD ~ Electronically Signed By: NEELA AMIN MD 03/13/20 2230 PATIENT NAME: REDDY FLANAGAN HISTORY AND PHYSICAL DATE OF : 52 REPORT #: [id number] PHYSICIAN: NEELA AMIN MD PCP: BINTA GUERRA PAC REPORT IS CONFIDENTIAL AND NOT TO BE RELEASED WITHOUT AUTHORIZATION
--- NOTE | 2020-03-13 23:11 | NUR ---
UP TO BR, VOIDED DARK URINE, BACK TO BED, TOLERATED WELL, O2 2L NC, SATS 96%, ABD BINDER IN PLACE, ABD DRESSING WITH OLD DRAINAGE AT BASE. PAUL PATENT. NGT DRAINING DARK BROWN THICK DRAINAGE, SCDS IN PLACE. IVF INFUSING, TOLERAINT ICE CHIPS AND CLEAR FLUIDS WELL. NO C/O N/V
--- NOTE | 2020-03-13 23:16 | NUR ---
THIS CALL CENTER OPERATOR ASSISTED RN MARCIA TO SIT PATIENT AT EDGE OF BED AND AMBULATE TO BATHROOM. PATIENT REQUESTED ASSISTANCE WITH PERICARE BUT OTHERWISE PERFORMED PM CARE INDEPENDENTLY WITH SUPERVISION. PATIENT BACK IN BED, FRESH ICE PACK ON ABDOMEN PER PATIENT REQUEST. CALL LIGHT IN REACH, BED RAILS UP X3 PER PATIENT REQUEST. PATIENT IS IN CHEERFUL MOOD WITH HIGH HOPES OF DISCHARGING THIS WEEKEND. NO FURTHER NEEDS AT THIS TIME.
--- NOTE | 2020-03-14 04:39 | NUR ---
PT HAD R ABD BOWEL RESECTION. MIDLINE ABD INCISION COVERED W SS, OPTICOAT AND OPSITE, PAUL W SS DRAINAGE, ABD DISTENTED, TENDER AMY BOWEL TONES, DENIES PASSING GAS. R NGT PATENT TO MARIAH, DRAINING THICK BROWN COLORED DRAINAGE. IT WILL BE DC'D THIS AM PER ORDERS. NO N/V. PT ON O2 2L NC ON AT HS. CPOX IN PLACE, DENIES C/O SOB. WAS MEDICATED X1 W MORPHINE PER ABD PAIN.IVF INFUSING W/O PROBLEMS, DENIES ADVERSE REACTION TO IV ABX. SCDS IN PLACE. UP TO BR W 1PA, VOIDING QS. TURNS SELF IN BED
--- NOTE | 2020-03-14 06:25 | NUR ---
pt up to br voided, NGT remoed, procedure explained, pt back on Room air, CPOX in place, sats 93% room air. midline abd dressing with old drainage at base, demarco patent with sanguineopus drainage. IVF infusing. c/o abd pain, medicated at this time with Toradol IV. Respositions self in bed, scds in place, denies burping or passing gas.
--- NOTE | 2020-03-14 06:37 | NUR ---
temp 99.9, 2 bedcovers removed, room temp decreased, return demonstration on IS done 10x. Tolerating clear liquids
--- NOTE | 2020-03-14 07:40 | NUR ---
PATIENT IS RESTING. BEDSIDE REPORT RECIEVED.
--- NOTE | 2020-03-14 09:00 | NUR ---
ASSESSMENT DONE. ABD BINDER IN PLACE. PALU INTACT, SMALL DRESSING JUST UNDER UMBILICUS IS DRY AND INTACT. PATIENT IS REQUESTING CLEAR LIQUIDS, THIS GIVEN. PATIENT NOW SIITING UP IN BED READY TO TAKE LIQUIDS. DENEIS NEED FOR PAIN MED.
--- NOTE | 2020-03-14 09:00 | NUR ---
REPORT RECEIVED FROM ADAM CHAN. THIS RN ASSUMING CARE OF PT. PT RESTING IN BED. PT REPORTS 2/10 PAIN AND STATES THAT PAIN IS TOLERABLE AT THIS TIME. ABDOMINAL BINDER IN PLACE. PT REPORTS SHE HAS NO REQUESTS OR COMPLAINTS AT THIS TIME. CALL LIGHT WITHIN REACH.
--- NOTE | 2020-03-14 10:05 | NUR ---
THIS RN TO ROOM TO CHECK NO PT. PT CONTINUES TO REPORT 2/10 PAIN AND DENIES NEED FOR PAIN MEDICATION. PT UP TO DO MORNING ADLs AND ORAL CARE. SBA UP TO AMBULTE IN [place] X1 LAP. PT TOLERATED WELL AND STATES SHE "CAN FEEL MY LUNGS OPENING UP." PT UP TO CHAIR. CONTINUES TO REPORT 2/10 PAIN. O2 AT 96% WITH HR OF 86. PT DEMONSTRATES USE OF I.S. REACHING 1000ML. CALL LIGHT WITHIN REACH. NO ADDITIONAL REQUESTS OR COMPLAINTS AT THIS TIME.
--- NOTE | 2020-03-14 12:13 | NUR ---
NOON ASSESSMENT DUE. PT UP TO AMBULATE IN [place] WITH SBA X1.5 LAPS IN [place]. PT BACK TO ROOM. ASSESSMENT DONE. DRESSING C/D/I WITH SMALL AMOUNT OF SHADOWING NOTED AT DISTAL END OF DRESSING. ABDOMINAL BINDER TIGHTENED. PAUL DRAIN DRAINAING SERIOUS ANGUINOUS DRAINAGE, 40ML REMOVED FROM DRAIN. LUNG SOUNDS CLEAR. I.S. USE DEMONSTRATED REACHING 1250ML. SBA UP TO VOID AND THEN TO CHAIR. PT EATING FULL LIQUID LUNCH. REPORTS 2/10 TOLERABLE PAIN. NO ADDITIONAL REQUESTS OR COMPLAINTS AT THIS TIME. CPOX DC'D WITH PT AT 98% O2 SATURATION ON ROOM AIR. CALL LIGHT WITHIN REACH.
--- NOTE | 2020-03-14 12:20 | OR ---
[facility] [address], [place] [address] Signed DATE OF OPERATION: 03/13/2020 SURGEON: Neela Amin MD PREOPERATIVE DIAGNOSES: 1. Morbid obesity. 2. Incarcerated incisional hernia in region of umbilicus, small bowel, and omentum. POSTOPERATIVE DIAGNOSES: 1. Morbid obesity. 2. Incarcerated incisional hernia in region of umbilicus, small bowel, and omentum. 3. Ischemic segment of omentum and ischemic segment of small bowel. PROCEDURES PERFORMED: 1. Segmental resection of small bowel with end-to-end anastomosis. 2. Partial omentectomy. 3. Repair of incarcerated incisional hernia with implantation of Vicryl mesh (subfascial) with left "unilateral component separation" (left side for medialization of linea alba). ANESTHESIA: General endotracheal; Neela Castaneda CRNA; and local 10 mL of 0.25% Marcaine with epinephrine. INDICATIONS: This very morbidly obese white woman is a patient of Dr. Raphael Santiago, who presented to the emergency room a few days ago with vague abdominal complaints, but without a clear finding of note. She was considered to have gastritis. She returned to the emergency room yesterday, where she had increasing pain and firmness in the region of the umbilicus and found to have an incarcerated hernia. A CT scan was performed, which showed a fair amount of omentum in the hernia as well as a loop of small bowel and some mild proximal dilation. She additionally has a very large hiatal hernia and gallstones, which were considered not the source of her problem today. She has been fluid resuscitated, given intravenous antibiotic Ancef and is to now undergo repair of the hernia with reduction of the contents. She has marked improvement with resuscitation measures, though she still has nonreducible hernia, likely related to prior surgery at the umbilicus for gynecologic causes. She understands the risks of bleeding, infection, need for unexpected procedures in addition to the hernia repair and wishes to proceed. FINDINGS: The fascial defect was between 4 and 6 cm, but extremely pelayo and tight. It had caused Electronically Signed By: NEELA AMIN MD 03/14/20 1220 PATIENT NAME: REDDY FLANAGAN OPERATIVE REPORT DATE OF : 52 REPORT #: [id number] PHYSICIAN: NEELA AMIN MD PCP: BINTA GUERRA PAC REPORT IS CONFIDENTIAL AND NOT TO BE RELEASED WITHOUT AUTHORIZATION [facility] [address], [place] [address] Signed ischemia of a generous portion of omentum as well as a segment of small bowel. Omental resection was required as was segmental bowel resection with primary end-to-end anastomosis. Considering the bowel was opened for resection, it was hesitant to place a permanent prosthetic mesh and therefore, she underwent implantation of Vicryl mesh in an underlay technique with component separation on the left side to allow for medialization of the fascia. My conclusion, a pelayo piece of Vicryl mesh has been implanted into the properitoneal space. The fascial edges had been reapproximated with interrupted PDS suture with Vicryl pledgets and a running Vicryl suture used to approximate the fascia. Drain was placed as well. DESCRIPTION OF PROCEDURE: The patient was brought to the operating room, given a general endotracheal anesthetic. A nasogastric tube was in place draining bilious fluid. The abdomen was prepared with chlorhexidine solution and draped sterilely. A bulky palpable mass was noted inferior and to the right of the umbilicus in relation to her prior small incision. A midline incision was made below the umbilicus and carried cephalad somewhat as well. Dissection was carried through the subcutaneous tissue where the non reducible hernia was identified. A violaceous fluid-filled tense hernia sac was noted. The fascial edges were more fully defined with electrocautery and blunt dissection. It was quite clear that there was ischemic organ within the hernia sac. Despite various maneuvers, it could not be reduced. On that basis, the fascia was released superiorly and inferiorly and a maintaining dissection in the properitoneal space ultimately, the herniated material could be released more fully and explanted. The hernia sac was then incised and the hemorrhagic fluid, which was non-odoriferous was suctioned free. The hernia sac itself had ischemic changes and a segment of bulky omentum had multiple small venous thromboses in the vasculature of the omentum. Additionally, there was a violaceous segment of small bowel approximately 4 cm in length. Sequential application of hemostats to a portion of omentum was undertaken and the vascular pedicles ligated with 2-0 Vicryl ties. The omentum was allowed to return to the peritoneal cavity. The small bowel was more fully mobilized and there was proximal dilation in the region of a concentric ring with chronic scarring corresponding to the ischemic segment. The distal portion was more decompressed. The small bowel was then returned to the peritoneal cavity and time given to see if the ischemic changes would resolve on their own. At this point, the fascial edges were more fully defined and although pelayo generally, given her significant morbid obesity and probably the fascial defect at time of laparoscopic incision, the defect was defined to be approximately 46 cm in size. Subcutaneous tissue on the left side was elevated from the overlying fascia, as it Electronically Signed By: NEELA AMIN MD 03/14/20 2513 PATIENT NAME: REDDY FLANAGAN OPERATIVE REPORT DATE OF : 52 REPORT #: [id number] PHYSICIAN: NEELA AMIN MD PCP: BINTA GUERRA PAC REPORT IS CONFIDENTIAL AND NOT TO BE RELEASED WITHOUT AUTHORIZATION [facility] [address], [place] [address] Signed partially was on the right side. The properitoneal space was developed and the bulky hernia sac with properitoneal fat was freed from the overlying fascia. Once this properitoneal space was fully developed. The small bowel was retrieved from the abdomen and examined and the violaceous changes had not diminished and the bowel was considered ischemic and hazardous for further observation. Segmental bowel resection was deemed advisable. The small bowel loop was withdrawn from the abdomen and the mesentery was scored with electrocautery. Application of hemostats was undertaken dividing the mesenteric vascular pedicles and they were secured with 2-0 silk ties. The mesentery was somewhat friable and additional 2-0 Vicryl suture ligatures were used to assure hemostasis. The bowel loops were slightly asymmetric as the more proximal portion was somewhat dilated. Both segments were quite viable, however. There was a minimal amount of creeping fat, in part related to obesity and not likely related to any sign of inflammatory bowel disease. The bowel segments were transected with a 75 mm CHELO stapling device and the specimen passed off the table. Photographs were taken. The staple lines were dissected free, allowing for an end-to-end enteroenterostomy. This was accomplished in a two layer technique of interrupted 3-0 silk suture. The serosal layer and interrupted 3-0 Vicryl for the mucosal layer. The staple line had been cut from each segment. An optimal end-to-end anastomosis was noted. Not mentioned previously was the egress of enteric fluid from the proximal end of the bowel, which was somewhat dilated. Although, no gross contamination in the field was noted, enteric contents were suctioned free and a bowel clamp was used to staunch any further egress of fluid prior to anastomosis. The anastomosis was completed, was inspected and found to be completely viable. The obstructing bowel clamp was removed and the passage of succus entericus through the anastomosis showed no sign of leakage or other problem. The mesentery was reapproximated with interrupted 3-0 Vicryl on each side. The small bowel was returned to the abdominal cavity. Irrigation was undertaken. Attention was then turned towards fixing the fascial defect itself. There was tension on the fascial edges as might be expected and the components release was deemed advisable. Subcutaneous tissue was elevated on the left side and an area 2 cm lateral to the rectus sheath fascia was incised, allowing for mobility of the fascial plane toward the midline. The redundant hernia sac was amputated and cut edges were sewn with running 3-0 silk suture. The properitoneal space was well prepared for mesh, but given the opening of the small bowel, previously the hazard of infection with a permanent mesh was deemed excessive. On that basis, Woven Vicryl mesh was implanted in the properitoneal space with interrupted 0 PDS suture with Vicryl pledgets. This provided a good bridge repair over the defect extended approximately 4 cm circumferentially. The fascia was then reapproximated to the midline with interrupted 0 PDS suture with Vicryl Electronically Signed By: NEELA AMIN MD 03/14/20 1220 PATIENT NAME: REDDY FLANAGAN OPERATIVE REPORT DATE OF : 52 REPORT #: [id number] PHYSICIAN: NEELA AMIN MD PCP: BINTA GUERRA PAC REPORT IS CONFIDENTIAL AND NOT TO BE RELEASED WITHOUT AUTHORIZATION [facility] [address] [facility] [place], [place] [address] Signed pledgets and subsequently a running 0 PDS suture as well. The repair appeared quite sturdy. Through a separate stab incision, a 7 mm flat John drain was placed in the fascial plane. Lucy layer was reapproximated with interrupted 2-0 Vicryl and skin closed with running subcuticular 3-0 Vicryl. The patient had unexpected arousal and coughing and stabilization of the abdominal wall was required. The protracted episode was such that these skin sutures were removed as was the subcutaneous sutures, and the repair inspected. Remained intact without sign of fascial disruption. Closure was once again undertaken in a similar way, having injected 10 mL of 0.25% Marcaine with epinephrine into the fascial area. Drains attached to bulb suction and a nylon suture applied to the drain as well. Steri-Strips were applied. The abdominal wall was stabilized during the course of once again a straining and coughing extubation process. She was ultimately transferred to the recovery room, calm and without further straining or coughing. Blood loss was estimated at 100 mL. Sponge, needle, and instrument counts were reported as correct x3. The operation was rather prolonged, complicated, and difficult. MD KRISTY Jimenez/CHARLES /[id number] cc: Dr. Raphael Goel MD Copies: DELIA GOEL MD ~ Electronically Signed By: NEELA AMIN MD 03/14/20 1220 PATIENT NAME: REDDY FLANAGAN OPERATIVE REPORT DATE OF : 52 REPORT #: [id number] PHYSICIAN: NEELA AMIN MD PCP: BINTA GUERRA PAC REPORT IS CONFIDENTIAL AND NOT TO BE RELEASED WITHOUT AUTHORIZATION
--- NOTE | 2020-03-14 14:05 | NUR ---
THIS RN TO ROOM TO CHECK ON PT. PT REPORTS 5/10 PAIN, SEE MAR FOR MEDICATION GIVEN. VITALS AND I/Os RECORDED BY DOMESTIC HOUSEKEEPER. PT REPORTS SHE IS GOING TO TAKE A SHORT NAP BEFORE GETTING UP AGAIN AT 4PM. NO ADDITIONAL REQUESTS OR COMPLAINTS. CALL LIGHT WITHIN REACH. BED RAILS UP.
--- NOTE | 2020-03-14 14:53 | NUR ---
THIS RN TO [place] TO CHECK ON PT. PT RESTING WITH EYES CLOSED. PT AWAKENS TO MOVEMENT IN ROOM. REPORTS 2/10 PAIN THAT IS TOLERABLE AT THIS TIME. NO ADDITIONAL REQUESTS OR COMPLAINTS. CALL LIGHT WITHIN REACH. PT ALLOWED TO REST.
--- NOTE | 2020-03-14 16:08 | NUR ---
AFTERNOON ASSESSMENT DUE. 1PA UP TO RESTROOM, PT HAS MEDIUM SIZE LOOSE BOWEL MOVEMENT AND VOID (MEASUREMENT MISSED). ASSESSMETN DONE. DRESSING INTACT WITH SMALL AMOUNT OF SHADOWING AT DISTAL END, NO NEW DRAINAGE NOTED. PT REPORTS 1/10 PAIN. ABDOMINAL BINDER REAPPLIED SNUGGLY. PAUL DRAIN EMPTIED FO 10ML SEROUS ANGUINOUS DRAINGE. PT UP TO AMBUATE DOWN MAIN HALLWAY AND X1 LAP AROUND MED/SURG. NO ADDITIONAL REQUESTS OR COMPLAINTS AT THIS TIME. CLOTH MEASURER MACHINE WORKING WITH PATIENT.
--- NOTE | 2020-03-14 16:38 | NUR ---
PATIENT AND I WALKED TO THE [facility] AND BACK TO HER ROOM IN MED SURG. SHE WALKED 475 FEET.
--- NOTE | 2020-03-14 16:48 | NUR ---
THIS RN TO ROOM TO CHECK ON PT. PT RETURNED FROM WALK. PT REPORTS 2/10 PAIN AND DENIES NEED FOR PAIN MEDICAITON. NEW IV FLUID BAG HUNG. WARM BLANKET PROVIDED. NO ADDITIONAL REQUESTS OR COMPLAINTS AT THIS TIME. CALL LIGHT WITHIN REACH.
--- NOTE | 2020-03-14 17:41 | NUR ---
PT HERE FOR INCARCERATED HERNIA REPAIR. PT UP TO AMBULATE MULTIPLE TIMES THIS SHIFT WITH SBA. PT ADVANCED TO FULL LIQUID DIET, TOLERATING WELL W/O NAUSEA THIS SHFIT. LOOSE BOWEL MOVEMENT NOTED THIS SHIFT. PRN PAIN MEDICAITON GIVEN FOR 1-6/10 PAIN. MID LINE INCISION DRESSING WELL INTACT WITH SMALL AMOUNT OF SHADOWING AT DISTAL END, NO NEW DRAINAGE THIS SHIFT. ABDOMINAL BINDER IN PLACE THROUGHOUT SHIFT. PAUL DRAIN SHOWING SERIOUS ANGUINOUS DRAINAGE, 70ML REMOVED SO FAR THIS SHIFT. PT VOIDING QUANTITY SUFFICIENT. PT USES CALL LIGHT APPROPRIATLY.
--- NOTE | 2020-03-14 18:57 | NUR ---
PT CALL LIGHT ON. PT REQUESTS PAIN MEDICATION FOR 10 PAIN. SEE MAR FOR MEDICATION GIVEN. NO ADDITIONAL REQUESTS OR COMPLAINTS. CALL LIGHT WITHIN REACH.
--- NOTE | 2020-03-14 19:54 | NUR ---
DROWSY, WAS MEDICATED EARLIER WITH MORPHINE AND STATES GOOD PAIN RELIEF. HOB ELEVATED PER COMFORT, NO C/O CP OR SOB. ON ROOM AIR, PT USES O2 AT HS NOT CHRONIC, USES A CPAP AT HOME. ABD LARGE SOFT, TENDER AMY STATES PASSING GAS, BURPING AND HAD A BM EARLIER. ABD MIDLINE INCISION OPTICOAT DRESSING COVERED WITH OPSITE AND SLIGHT DRY OLD DISCHARGE AT BASE, ABD BINDER IN PLACE. PAUL W SCANT AMOUNT OF SS DRAINAGE, SCDS OFF ON RETURN FROM BATHROOM, WILL REAPPLY IN 1 HOURS PER HER REQUESTS. TURNS AND RFEPOSITIONS SELF IN BED. IVF INFUSING,. CALL LIGHT AND FLUIDS AT BEDSIDE
--- NOTE | 2020-03-14 22:10 | NUR ---
SBA FROM BATHROOM TO BED. PATIENT STATED CAN'T WIPE HERSELF. THIS FIBRE TECHNOLOGIST WIPED AND CHANGED NEW PULL UPS.PRIMARY RN WAS WITH PATIENT IN THE ROOM.
--- NOTE | 2020-03-14 22:16 | NUR ---
Up to br, voided, back to bed, tolerated well, abd binder repositioned. c/o 5/10 abd pain, medicated with Toradol 30mg Iv. O2 2L back on. IVf infusing w/o problems, no c/o adverse reaction to IV abx. tolerating fluids well, no c/o n/v
--- NOTE | 2020-03-15 00:58 | NUR ---
reting, hob elevated, O2 in place, IVF infusing, fluids and call light at bedside
--- NOTE | 2020-03-15 05:36 | NUR ---
PT AWAKES EASILY, HAS SLEPT VERY WELL THIS SHIFT. MEDICATED X2 WITH MORPHINE IV X1 AND TORADOL X1 WITH GOOD ABD PAIN RELIEF. MIDLINE OPTICOAT ABD DRESSING WITH SMALL SHADOWING AT BASE ABD BINDER IN PLACE. APUL PATENT , DRAINING SMALL AMOUNTS OF SS DRAINAGE. HAS HAD SEVERAL BMS, PASSING GAS AND BURPING, TOLERATING FULL LIQUID DIET WELL, NO N/V, IVF INFUSING W/O PROBLEMS, NO C/O ADVERSE REACTION TO ABX. WAS WALKED TO SEVERAL TIMES, TOLERATING WELL, NO SOB. RECEIVED VASOTEC IV ORDERED, BP MUCH IMPROVED. WAS ON O2 AT HS, OFF NOW, SCDS IN PLACE. COOP AND PLEASANT
--- NOTE | 2020-03-15 07:09 | NUR ---
REPORT RECEIVED FROM ADAM KENNEDY. 1PA UP TO RESTROOM. PT HAS LARGE SOFT BOWEL MOVEMENT AND VOID. MEKA CARE DONE. DEPENDS CHANGED. PT BACK TO BED. PT REPROTS /10 PAIN AND DENIES NEED FOR PAIN MEDICAITON AT THIS TIME. PT REPORTS "STOMACH ACID." WILL GIVE MORNING MEDICAITONS. PT BACK TO BED TO REST. SCD'S IN PLACE. CALL LIGHT WITHIN REACH.
--- NOTE | 2020-03-15 07:36 | NUR ---
MORNING ASSESSMENT AND MEDICATION DUE. PT REQUESTS TO TAKE MEDICATIONS EARLY SO SHE CAN GO BACK TO SLEEP AND "FEEL BETTER WHILE I REST." ASSESSMENT DONE. PT REPORTS 3/10 PAIN, SEE MAR FOR MEDICATION GIVEN. MID LINE INCISION SHOWS SMALL AMOUNT OF OLD SHADOWING AT DISTAL END. NO NEW DRAINAGE NOTED. PAUL DRAIN C/D/I WITH SCANT AMOUNT OF SEROUD ANGUINOUS DRAINAGE IN BULB AT THIS TIME. ABDOMINAL BINDER TIGHTLY REPLACTED. LUNG SOUND CLEAR. SCD'S IN PLACE. MEDICAITONS GIVEN. PT DEMONSTRATES USE OF I.S. REACHING 800ML. PT ALLOWED TO REST A THSIT MORE. BED RAILS UP. CALL LIGHT WITHIN REACH.
--- NOTE | 2020-03-15 09:00 | NUR ---
THIS RN TO ROOM TO CHECK ON PT. PT RESTING WITH EYES CLOSED. RESPIRATIONS EVEN AND UNLABORED. BED RAILS UP. CALL LIGHT WITHIN REACH. PT ALLOWED TO REST.
--- NOTE | 2020-03-15 11:40 | NUR ---
THIS RN TO ROOM WITH MD FOR ROUNDS. ORDERS TO REMOVE ACTICOAT DRESSING AND HELP PT WITH SHOWER. ASSESSMENT DONE. LUNG SOUNDS CLEAR. ACTICOAT DRESSING REMOVED, NO DRAINAGE NOTED. STERI STRIPS IN PLACE, C/D/I, WITH WOUND EDGES WELL APROXIMATED. CMS INTACT. PT REPORTS 1/10 PAIN AND STATES SHE WAS ABLE TO TOLERATE "SOME OF MY BREAKFAST." PT REPORTS MINIMAL APPITITE AND "FEELING TIRED" TODAY. PT UP FOR SHOWER. PATIENT SUPPORT REPRESENTATIVE TO ASSIST WITH SHOWER. LINENS CHANGED. PATIENT SUPPORT REPRESENTATIVE AT BEDSIDE WITH PT.
--- NOTE | 2020-03-15 12:11 | NUR ---
PATIENT NEEDED ASSISTANCE AFTER SHOWER, ASSISTED PATIENT TO THE CHAIR, GOT NEW GOWN NAD PULL UP, ASSISTED BEBE HERMAN IN PUTTING ABDOMINAL BINDER BACK ON AND GOT THE PATIENT A WARM BLANKET
--- NOTE | 2020-03-15 12:37 | NUR ---
PT FINISHED WITH SHOWER. THIS RN TO ROOM TO CHECK ON PT. PT REPORTS 1/10 PAIN AND DENIES NEED FOR PAIN MEDICATION. ABDOMINAL BINDER PLACED BY THIS RN, LOW WITH PANNUS SUPPORTED, ADAM BENITEZ TO ASSIST WITH PLACEMENT. MIDLINE INCISION UNCHANGED AFTER SHOWER. STERI STRIPS INTACT. PT DENIES NAUSEA BUT CONTINUES TO REPORTS "FEELING OF ACID IN MY THROAT." PT ENCORUAGED TO SIT UP RATHER THAN LIE IN BED. PT REQUESTS TO STAY IN BED BUT AGREES TO HEAD OF BED ELEVATED AT 45 DEGREES. NO ADDITIONAL REQUESTS OR COMPLAINTS AT THIS TIME. CALL LIGHT WITHIN REACH. BED RAILS UP.
--- NOTE | 2020-03-15 14:18 | NUR ---
THIS RN TO BEDSIDE TO CHECK ON PT. PT REPORTS 1/10 PAIN AND DENIES NEED FOR PAIN MEDICATION. PT RESTING IN BED. SCD'S IN PLACE. ABDOMINAL BINDER IN PLACE. NO REQUESTS OR COMPLAINTS AT THIS TIME. CALL LIGHT WITHIN REACH.
--- NOTE | 2020-03-15 15:11 | NUR ---
PT CALL LIGHT ON. PT REQUESTS ASSITANCE WITH WIPING AFTER USING TOILET. MEKA CARE DONE. LARGE SOFT BM NOTED, MIXED STOOL/VOID. FRESH DEPENDS IN PLACE. PT ENCORUAGED TO AMBULATE. PT UP FOR AMBULATION X1.5 LAPS IN [place]. PT REQUESTS TIME BACK TO BED. WATER AND ICE REFILLED. PT REQUESTS PAIN MEDICATION FOR 2/10 "AND RISING" PAIN. SEE MAR FOR MEDICATION GIVEN. PT RESTING IN BED. NO ADDITIONAL REQUESTS OR COMPLAINTS AT THIS TIME. CALL LIGHT WITHIN REACH.
--- NOTE | 2020-03-15 15:36 | NUR ---
AFTERNOON ASSESSMENT DUE. PT REPORTS 2/10 PAIN THAT IS MANAGABLE, PAIN PILL ON BORD. PT STATES SHE HAS HAD TROUBLE WITH NAUSEA WHEN TAKING PERCOCET IN THE PAST BUT WOULD "LIKE TO TRY IT AGAIN BECAUSE HE PROBABLY FIXED EVERYTHING." EDUCATION DONE WITH PT REGARDING MEDICATIONS. PT STATES IN THE PAST SHE HAS BEEN TOLD TO AVOID OVER THE COUNTER MEDICATIONS BECAUSE OF HER STOMACH. PT VERBALIZES UNDERSTANDING OF COMPONENTS OF PERCOCET AND IT'S SIDE EFFECTS AND AGREES THAT SHE WOULD LIKE TO TRY TAKING IT. SEE MAR FOR MEDICATION GIVEN. ASSESSMENT DONE. LUNG SOUNDS CLEAR. BOWEL TONES HEARD. ABDOMINAL BINDER REMOVED FOR VISUALIZATION OF MIDLINE INCISION, MID LINE INCISION EDGES WELL APROXIMATED, NO NEW DRAINGE NOTED. STERI STRIPS IN PLACE. ABDOMINAL BINDER REPLACED TO LOWER ABDOMEN WITH ASSISTANCE FROM ADAM FLYNN. PT EDUCATION DONE REGARDING PAUL DRAIN. PT DEMONSTRATES UNDERSTANDING BY EMPTYING PAUL DRAIN BULP OF 8ML OF SEROUSANGUINOUS FLUID. PT DENIES NAUSEA. DINNER ORDER PLACED. PT DEMONSTRATES USE OF I.S. REACHING 1000ML. NO ADDITIONAL REQUESTS OR COMPLAINTS AT THIS TIME. CALL LIGHT WITHIN REACH. SCD'S IN PLACE.
--- NOTE | 2020-03-15 15:40 | NUR ---
THIS RN BACK TO ROOM FOR ITEMS FORGOTTEN AND PTS REPORTS NAUSEA. PT BEGINS VOMITING LIQUID, 500ML OF GREEN TINGED EMESIS. PT REPORTS "OH NOW I FEEL BETTER THAN I HAVE ALL DAY." ZOFRAN GIVEN. GOWN CHANGED. MOUTH WASH USED. PT REMAINS RESTING IN BED AT THIS TIME. HOB ELEVATED. WILL NOTIFIY MD. CALL LIGHT WITHIN REACH.
--- NOTE | 2020-03-15 17:30 | NUR ---
MD CALLED WITH UPDATE ON PTS REGARDING EMESIS. NEW ORDERS PLACED. PERCOCET DC'D PER MD ORDER. DIET CHANGED TO FULL LIQUIDS. IV FLUIDS RESUMED. PT UPDATED ON PLAN OF CARE. DINNER ORDER CANCELED. PT GIVEN SHERBERT PER REQUEST. IV FLUIDS RESUMED. PT DENIES NAUSEA AT THIS TIME AND REPORST 1/ PAIN. PT DENIES NEED FOR PAIN MEDICAITON. PT VERBALIZES UNDERSTANDING OF PLAN OF CARE. NO ADDITIONAL REQUESTS OR COMPLAINTS AT THIS TIME. CALL LIGHT WITHIN REACH.
--- NOTE | 2020-03-15 17:44 | NUR ---
PT VOMITING AGAIN, 50ML CLEAR GREEN LIQUID. PT REPORTS "IT WAS JUST THE 7-UP." MD CALLED. NEW ORDERES FOR PHENEGRAN PLACED. REPEAT BACK OVER THE PHONE DONE FOR NEW ORDERS. DIET CHANGED TO CLEAR LIQUIDS. MEDICAITON GIVEN BY ADAM LICEA. PT RESTING IN BED. BED RAILS UP. CALL LIGHT WITHIN REACH.
--- NOTE | 2020-03-15 17:49 | NUR ---
PT CONT. TO C/O NAUSEA AFTER TAKING ZOFRAN, DR AMIN CALLED AND ORDER RECIEVED TO GIVE PHENERGAN 12.5MG IV. MEDICATION GIVEN. HOB UP 30 DEG, PT RESTING NOW WITH EYES CLOSED. IVF PATENT.
--- NOTE | 2020-03-15 20:30 | NUR ---
pt had 600cc bile colored emesis, received zofran and phenergan earlier. will hold po meds at this time. Pt up to bed from chair, reassured
--- NOTE | 2020-03-15 21:45 | NUR ---
650cc bile colored emesis, to be medicated with zofrn, in bed, hob elevated ice chips at bedside.
--- NOTE | 2020-03-15 22:56 | NUR ---
PATIENT STATED " DONT FEEL GOOD AND FEEL SICK LOOKING AT IT AND I KNEW HOW TO EMPTY IT BECAUSE I HAD LIKE IT BEFORE". THIS BEHAVIORAL HEALTH COUNSELOR EMPTIED IT.
--- NOTE | 2020-03-15 23:25 | NUR ---
PT HOB ELEVATED, NO FURTHER EMESIS, CONTINOUS TO DECLINE 2100 UNTIL SHE FEELS BETTER, DECLINED TO DO OWN PAUL ' I DONT FEEL GOOD' WILL CONTINUE TO ENCOURAGE.
--- NOTE | 2020-03-16 00:10 | NUR ---
PT HAD 1100CC BILE LOOKING EMESIS, WILL MEDICATE WITH PHENERGAN AND WILL CALL DR AMIN
--- NOTE | 2020-03-16 01:13 | NUR ---
0015- Dr Shaffer notified of pts large amount of emesis - new orders received - restart NGT to ILWS, restart the following meds - Vasotec 1.25mg IV q6h, pepcid 20mg IV bid, Toradol 30mg q8h prn pain, morphine 2-4mg IV q2h prn pain, NPO x ice chips, cancel po meds, will evaluate in am. 0030 - Pt accidentally pulled IV from RAC. will restart 0100 - NGT inserted R nare, inmediate results of bile looking deng noted, plus she had more emesis. procedure explained, anxious but cooperative. 0017 - DI here for XR NGT placement
--- NOTE | 2020-03-16 01:49 | NUR ---
PER XR/NGT PLACEMENT. - NGT IN PLACE, NGT HOOKED UP TO LIWS AT THIS TIME
--- NOTE | 2020-03-16 02:54 | NUR ---
I feel much better stated, declines to have O2 on at this time. NGT R nare in place, draining large amonts of green-brown thick drainage. abd binder in place. scds in place. IV restarted R hand by tilt wall supervisor, IVF infusing w/o problems
--- NOTE | 2020-03-16 05:15 | NUR ---
pt up to br, voided. Had a total emesis of 1800cc+, NGT was placed and had 1300cc thick green-brown colored drainage inmediately. plus 450cc emptied just now. states she feel better. Was medicated with zofran and phenergan per n/v, not effective. Abd large, soft, sadia. ss and binder in blace. demarco draining qs, teaching for self care done, did emptied it this am, was reluctant earlier in shift. scds in place, IVf restarted as pt acidentally pulled off. On room air, has declined O2 last night, NPO, did own care
--- NOTE | 2020-03-16 07:32 | NUR ---
RECIEVED BEDSIDE REPORT FROM ADAM KENNEDY. PT IS SLEEPING SOUNDLY, NG TUBE IS IN PLACE TO LIWS WITH MODERATE DRAINAGE. PT APPEARS COMFORTABLE AT THIS TIME. MULTIPLE EPISODES OF EMISIS OVERNIGHT. AWARE.
--- NOTE | 2020-03-16 11:19 | NUR ---
PATIENT IN BED WATCHING TV. FRESH ICE CHIPS GIVEN. CALL LIGHT IN REACH. NO FURTHER NEEDS AT THIS TIME.
--- NOTE | 2020-03-16 13:36 | NUR ---
PATIENT CALLED TO BE HOOKED BACK UP. HER NG CANISTER WAS AT 650, SO I GOT A NEW ONE. PATIENT IS HAPPY WITH CARE, RN ANUJA HOOKED PATIENT UP TO HER IV. CALL LIGHT IN REACH.
--- NOTE | 2020-03-16 17:06 | NUR ---
PATIENT IN BED RESTING
--- NOTE | 2020-03-16 18:59 | NUR ---
PT ACCIDENTLY PULLED OUT HER NGT WHILE GOING TO THE BATHROOM. SHE HANDED THE TUBE TO ADAM LICEA WHEN SHE WENT TO HELP HER. LARGE BM, GOOD BOWEL TONES. NGT OUTPUT DECREASEING. CALLED DR AMIN. NEW ORDER TO LEAVE NGT OUT, KEEP HER NPO EXCEPT FOR ICE CHIPS, AND HE WILL REASSESS IN THE MORNING.
--- NOTE | 2020-03-16 19:15 | NUR ---
BEDSIDE REPORT RECEIVED FROM OFFGOING RN. PT PARTICIPATES IN REPORT, DENIES NEEDS AT THIS TIEM. CALL LIGHT IN REACH.
--- NOTE | 2020-03-16 20:50 | NUR ---
PT ASSESSMENT COMPLETE. PT RESTING IN BED WATCHING TV. DENIES PAIN, NAUSEA, OR SOB. SHE STATES THAT SHE "FEELS BETTER NOW THAN SHE HAS IN A WHILE". MIDLINE WITH STERISTRIPS THAT ARE BEGINNING TO FALL OFF. SMALL AMOUNT OF DRY/CRUSTY DRAINAGE NOTE. PAUL SITE WITH GAUZE, SHADOWING PRESENT. PT IS MANAGING HER DRAIN INPENDENTLY. NOTED THAT SUCTION IS NOT APPLIED. EDUCATION PROVIDED. PT VERBALIZED UNDERSTANDING. LAMINA SEARCHER APPLIED SUCTION AND STIPED THE TUBING. BT'S ACTIVE. PT DENIES ABD TENDERNESS. ABD BINDER IN USE AT ALL TIMES. PT EXPRESSES CONCERN ABOUT EATING AFTER INCIDENT WITH EMESIS. PT UNDERSTANDS NPO AT THIS TIME. EDUCATION REGARDING ADVANCEMENT OF DIET, REASSURANCE PROVIDED. PT STATES UNDERSTANDING. DENIES FURTHER NEEDS AT THIS TIME. CALL LIGHT IN REACH.
--- NOTE | 2020-03-17 00:05 | NUR ---
PT RESTING IN BED WITH SLEEP MASK IN PLACE. RESPIRATIONS EVEN AND UNLABORED. APPEARS TO BE SLEEPING. DOES NOT WAKE WHILE GRINDER SET UP OPERATOR AT DOORWAY. CALL LIGHT IN REACH.
--- NOTE | 2020-03-17 01:30 | NUR ---
PT ASSESSMENT COMPLETE. PT RESTINGIN BED WITH SLEEP MASK OVER EYES. PT WAKES EASILY TO VOICE AND LIGHT TOUCH. DOES NOT REMOVE SLEEP MASK DURING VITALS CHECK AND ASSESSMENT, ANSWERS QUESTIONS APPROPRIATELY. DENIES PAIN, NAUSEA, OR SOB. MIDLINE INCISION UNCHANGED FROM PREVIOUS ASSESSMENT. PAUL WITH GAUZE AND SILK TAPE, SHADOWING UNCHANGED FROM PREVIOUS. SUCTION APPLIED APPROPRIATELY UPON ASSESSMENT. BT'S ACTIVE. PT DENIES AND TENDERNESS ON PALPATION. ABD BINDER REMINDS IN PLACE. PT DENIES FURTHER NEEDS AT THIS TIME. CALL LIGHT IN REACH
--- NOTE | 2020-03-17 03:30 | NUR ---
PT UTILIZES CALL LIGHT, REQUESTS "FEW ICE CHIPS", PROVIDED. PT DENIES FURTHER NEEDS. CALL LIGHT IN REACH.
--- NOTE | 2020-03-17 06:42 | NUR ---
PT UP TO THE BATHROOM, HAD LARGE AMOUNT OF MIXED STOOL AND URINE IN ATTENDS IN TOILET. PT ASSISTED TO CLEAN UP AND CHANGE ATTENDS. PT WALKS TO CHAIR AND PUTS HER LEGS UP INDEPENDENTLY. ICE CHIPS PROVIDED BY WELL SERVICES OPERATOR. PT DENIES FURTHER NEEDS. CALL LIGHT IN REACH.
--- NOTE | 2020-03-17 07:35 | NUR ---
Pt sitting up in chair at this time, resp even and non labored. Pt denies pain at this time. Personal supplies and call light within reach.
--- NOTE | 2020-03-17 10:00 | NUR ---
Spoke with Tiffanie. She states she had a set back and was nauseated. Feeling better today. Plans on going home tomorrow. Dr. Shaffer in and saw pt and plans on dc of pt tomorrow, if all goes well.
--- NOTE | 2020-03-17 10:54 | NUR ---
PATIENT IN BED RESTING, WARM BLANKET GIVEN. PATIENT SIAD SHE GOT CLEANED UP AND DID AM CARE WHILE SHE WAS UP IN RESTROOM. CALL LIGHT IN REACH. NO FURTHER NEEDS AT THIS TIME.
--- NOTE | 2020-03-17 13:32 | NUR ---
PT IS ALERT, ORIENTED AND SITTING UP IN BED WITH TV ON. PT SEEMS PLEASED WITH VISITOR, SHARES THOUGHT ON COVID VIRUS. MISSES PERSONAL CARE MOSTLY, AND JOKES THAT SHE IS DOING OK. PT IS VERY PLEASED WITH CARE AT [facility], AND EXCITED ABOUT GETTING "CLEAR LIQUIDS"!. PT REQUESTED PRAYER AND LEFT A G.POST
--- NOTE | 2020-03-17 16:39 | NUR ---
Pt in bed reading at this time, resp even and non labored. Pt reports her abd pain is tolerable at this time. Pt has ambulated independently several time stoday. Abd binder intact. Pt has no needs. Personal supplies and call light within reach.
--- NOTE | 2020-03-17 19:10 | NUR ---
BEDSIDE REPORT RECEIVED FROM ADAM GURROLA. pt RESTING IN BED, TALKING ON CELL PHONE. STERI STRIPS CDI, INCISION INTACT. PAUL DRAIN WITH SS DRAINAGE. pt PROVIDED WITH ICE WATER. NO ADDITIONAL REQUESTS. DENIES PAIN. CALL LIGHT IN REACH. IVF INFUSING WNL ORDERED.
--- NOTE | 2020-03-17 20:20 | NUR ---
pt ASSSESSMENT COMPLETE. pt DENIES PAIN, DENIES NAUSEA. INCISION CDI WITH STERI STRIPS. PAUL DRAIN W SS DRAINAGE. pt DENIES NEEDS AT THIS TIME. IVF INFUSING WNL ORDERED. CALL LIGHT IN REACH.
--- NOTE | 2020-03-17 23:57 | NUR ---
CHECKED ON pt. RESTING IN BED WITH EYES CLOSED, BREATHING UNLABORED. LIGHTS OFF IN ROOM. CALL LIGHT IN REACH.
--- NOTE | 2020-03-18 01:00 | NUR ---
PATIENT USED THE TOILET CALL LIGHT. SBA FROM BATHROOM TO BED. PULL UP CHANGED. NO OTHER NEEDS AT THIS TIME.
--- NOTE | 2020-03-18 02:40 | NUR ---
pt AWAKE WHEN RN ENTERS ROOM. VSS. SCHEDULED MEDICATION ADMINISTERED. IVF INFUSING WNL ORDERED. ASSESSMENT COMPLETE. pt DENIES PAIN AND NAUSEA. SPRITE AND WATER PROVIDED, TOLERATING CLEAR LIQUIDS. BOWEL TONES ACTIVE X 4. ABD SOFT, NONTENDER W PALPATION. CALL LIGHT IN REACH. LIGHTS OFF IN ROOM.
--- NOTE | 2020-03-18 04:58 | NUR ---
CALL LIGHT ANSWERED. pt BACK TO BED FROM RESTROOM, MIXED VOID AND LOOSE BM. pt DENIES PAIN. VSS. SPRITE PROVIDED. pt DENIES NAUSEA. CALL LIGHT IN REACH.
--- NOTE | 2020-03-18 07:50 | NUR ---
Pt in shower with NEW CAR MAKE READY WORKER assist.
--- NOTE | 2020-03-18 08:00 | NUR ---
PATIENT SITTING UP IN CHAIR. IV WRAPPED. SETS UP BATHROOM FOR SHOWER. LINENS CHANGED. CALL LIGHT WITHIN REACH. NO OTHER NEEDS AT THIS TIME
--- NOTE | 2020-03-18 09:48 | NUR ---
PATIENT RESTING IN BED. VITAL SIGNS AND I&O DONE. CALL LIGHT WITHIN REACH. NO OTHER NEEDS AT THIS TIME
--- NOTE | 2020-03-18 10:50 | NUR ---
Spoke with Tiffanie. She states she has not seen Dr. Shaffer today. Not sure if she will be discharged. Taking clear liq. and states she is tolerating. Denies need to go home. Daughter lives with her and will assist. States her car is here, but does not plan on driving herself home.
--- NOTE | 2020-03-18 13:32 | NUR ---
PATIENT SITTING UP IN CHAIR. VITAL SIGNS AND I&O DONE. CALL LIGHT WITHIN REACH. NO OTHER NEEDS AT THIS TIME
--- NOTE | 2020-03-18 14:12 | NUR ---
PT ON PHONE, WILL CHECK BACK
--- NOTE | 2020-03-18 14:19 | NUR ---
Pt's IV fluids stopped per doc order.
--- NOTE | 2020-03-18 15:32 | NUR ---
Pt tolerating full liquid diet well. New order placed to advance to low fiber diet at dinner time today, per doc order.
--- NOTE | 2020-03-18 17:10 | NUR ---
ASSISTED IN CLEANING HERSELF UP AFTER USING BATHROOM, AND BACK TO CHAIR. VITALS DONE. CALL LIGHT IN REACH. NO OTHER NEEDS AT THIS TIME.
--- NOTE | 2020-03-18 19:05 | NUR ---
SHIFT REPORT [facility] AT BEDSIDE. PT AWAKE AND RESTING IN BED, ABDOMINAL BINDER IN PLACE. MIDLINE INCISION WELL APPROXIMATED, STERI STRIPS IN PLACE. NO SIGNS OF INFECTION. PT DENIES FURTHER NEEDS, CALL LIGHT IN REACH. BOARD UPDATED.
--- NOTE | 2020-03-18 21:05 | NUR ---
ASSESSMENT COMPLETE, SCHEDULED MEDS GIVEN (SEE EMAR). PT A/O, VSS. CALLS APPROPERIATELY. ABDOMINAL INCISION OPEN TO AIR WITH STERI STRIPS IN PLACE, SITE WELL APPROXIMATED. NO SIGNS OF INFECTION AT THIS TIME, WILL MONITOR. PAUL DRAIN IN PLACE, DRESSING INTACT. OUTPUT SEROSANGUINEOUS IN COLOR. PT DENIES ADDITIONAL NEEDS, CALL LIGHT IN REACH. IV SITE WNL, SALINE LOCKED.
--- NOTE | 2020-03-19 00:13 | NUR ---
PT RESTING IN BED WITH EYES CLOSED, RR EVEN AND UNLABORED. PT APPEARS COMFORTABLE, NO DISTRESS NOTED. CALL LIGHT IN REACH.
--- NOTE | 2020-03-19 02:50 | NUR ---
ASSESSMENT COMPLETE, SCHEDULED MED GIVEN (SEE EMAR). VSS, PT DENIES NEED FOR PAIN OR NAUSEA MEDS. INCISION SITE REMAINS WELL APPROXIMATED, STERI STRIPS IN PLACE. PAUL DRESSING INTACT, SOME OLD SHADOWING NOTED, NO CHANGES SINCE START OF SHIFT. NO ADDITIONAL NEEDS, PT COMPLIANT WITH CARE. CALL LIGHT IN REACH.
--- NOTE | 2020-03-19 05:19 | NUR ---
PATIENT SITTING UP IN BEDSIDE RECLINER, REPORTS BEING COMFORTABLE AND READY TO GO HOME. BM REPORTED TO RN, PATIENT CALL LIGHT IN REACH, NO FURTHER NEEDS AT THIS TIME.
--- NOTE | 2020-03-19 08:30 | NUR ---
Discussed with IDT in 0830 meeting.
--- NOTE | 2020-03-19 09:56 | NUR ---
PATIENT EXPECTING TO GO HOME TODAY ON A LOW-FIBER DIET. I GAVE HER A HANDOUT FROM THE NUTRITION CARE MANUAL ON A FIBER-RESTRICTED DIET. EXPLAINED THE FOODS RECOMMENDED AND FOODS TO AVOID. ALSO EXPLAINED THAT THIS DIET IS NOT FOREVER, JUST A COUPLE OF WEEKS OR SO. SHE APPRECIATED THE INFO. SHE WANTS TO LOSE WEIGHT, SO SHE MAY BE SEEING ME AN OUTPATIENT EVENTUALLY.
--- NOTE | 2020-03-19 11:58 | PATH ---
[facility] [address], [place] [address] Signed SPECIMEN(S): A ISCHEMIC OMENTUM SPECIMEN(S): B ISCHEMIC BOWEL SPECIMEN(S): C HERNIA SAC SPECIMEN SOURCE: A. ISCHEMIC OMENTUM B. ISCHEMIC BOWEL C. HERNIA SAC CLINICAL HISTORY: Incarcerated incisional hernia. FINAL PATHOLOGIC DIAGNOSIS: A. Omentum, partial omentectomy: - Omentum with vascular congestion and hemorrhage. - Negative for malignancy. B. Small bowel, resection: - Viable small bowel with vascular congestion and transmural hemorrhage extending into mesenteric fibroadipose tissue. - Viable bowel surgical margins. - Negative for dysplasia or malignancy. C. Hernia sac, excision: - Fibromembranous tissue and fibroadipose tissue with acute and chronic inflammation, reactive changes, hemorrhage, and vascular congestion. - Negative for malignancy. NAL:cml:[id number] MICROSCOPIC EXAMINATION: Histologic sections of all submitted blocks are examined by light microscopy. These findings, together with the gross examination, support the pathologic diagnosis. GROSS DESCRIPTION: Three specimens are received in three containers, labeled "RG." A. The specimen, labeled "RG," and designated "portion of the ischemic omentum" per the requisition is received in formalin and consists of a yellow-sahni to brown-sahni and hemorrhagic portion of omentum (20.7 x 17.6 x 3.4 cm). Track Maintainer sections are submitted in cassettes A1 A2. B. The specimen, labeled "RG," and designated "segment of ischemic bowel" per the requisition is received in formalin and consists of a segment of small PATIENT NAME: REDDY FLANAGAN PATHOLOGY DATE OF : 52 REPORT #: [id number] PHYSICIAN: BERENICE PATHAK PCP: [facility] PAC REPORT IS CONFIDENTIAL AND NOT TO BE RELEASED WITHOUT AUTHORIZATION [facility] [address], [place] [address] Signed bowel (14.6 cm in length and ranging in diameter from 3.0-4.2 cm) with attached mesenteric adipose. There is a central dusky portion of bowel (7.0 cm in length) located 3.3 cm from the nearest bowel margin. The remaining serosa is pink-sahni to slightly hemorrhagic. The specimen is opened to reveal pink-sahni mucosal folds with brown-sahni, hemorrhagic mucosal folds corresponding to the previously mentioned dusky segment of bowel. The specimen has a wall thickness ranging from 0.4-0.7 cm. Track Maintainer sections are submitted as follows: (B1) bowel margins, en face (B2) hemorrhagic bowel wall (B3) hemorrhagic bowel wall to normal bowel wall C. The specimen, labeled "RG," and designated "hernia sac" per the requisition is received in formalin and consists of a portion of brown-sahni to hemorrhagic soft to membranous tissue (9.5 x 5.4 x 2.6 cm). The specimen is serially sectioned to show a red-brown to hemorrhagic devitalized cut surface. Track Maintainer sections are submitted in cassette C1. AC (under the direct supervision of a pathologist) The Gross Description was prepared using a voice recognition system. The report was reviewed for accuracy; however, sound-alike word errors, addition and/or deletions may occur. If there is any question about this report, please contact Client Services. PERFORMING LABORATORY: The technical component was performed by [facility], [address] [place] [address] [place] [address] (Associate Relations Specialist: Ruth Ott MD; CLIA# [id number]). Professional interpretation was performed by [facility], [facility], [address] [address] (CLIA# [id number]). Diagnostician: Prudence Burton MD Pathologist Electronically Signed 03/19/2020 Copies: ~ PATIENT NAME: REDDY FLANAGAN PATHOLOGY DATE OF : 52 REPORT #: [id number] PHYSICIAN: BERENICE PATHOLOGY PCP: BINTA GUERRA PAC REPORT IS CONFIDENTIAL AND NOT TO BE RELEASED WITHOUT AUTHORIZATION
[2020-03-19] MEDS ORDERED: TYLENOL EXTRA500 MG PO (12:09)
[2020-03-19] MEDS ORDERED: MOTRIN IB200 MG PO (12:09)
--- NOTE | 2020-03-19 12:25 | NUR ---
DR AMIN INTO SEE PT AT THIS TIME, NEW ORDERS. PT WILL BE DISCHARGE TO HOME TODAY. PT DID NOT WANT TO TAKE A SHOWER TODAY. SHE WILL WHEN SHE GETS HOME.
--- NOTE | 2020-03-19 12:41 | NUR ---
PT IS ALERT, ORIENTED AND SITTING IN CHAIR RECLINING. PT APPARENTLY HAD JUST FINISHED PHONE CALL TO FAMILY, AND WAS A LITTLE TEARFUL. PT ENGAGED WITH ME IN EXPLAINING IT HAS JUST REALLY HIT HER HOW IMPORTANT HER FAMILY IS TO HER. DEBRIEFED, HAD POSITIVE VISIT. HAD PRAYER WITH PT, SHE IS TO [place] LATER [place].
--- NOTE | 2020-03-19 12:52 | NUR ---
DISCHARGE INSTRUCTIONS GIVEN PT UNDERSTAND, ALL PERSONAL BELONGIS SENT HOME WITH PT.
--- NOTE | 2020-03-20 10:33 | DS ---
[facility] [address], [place] [address] Signed ADMISSION DATE: 03/12/2020 DISCHARGE DATE: 03/19/2020 REASON FOR ADMISSION: This morbidly obese 69-year-old white woman presented to the emergency room for the 2nd time in this week and seen by Dr. Wiggins for vague abdominal pain. Evaluation including CT scan showed a rather sizable incisional hernia in the region of the umbilical or infraumbilical area related to prior incision from gynecologic surgery in the past. A fair amount of omental fat was noted as was small bowel loops. She had some proximal dilation of the small bowel as well. She is admitted for further evaluation and care. Other details can be found in admission history and physical. PERTINENT PHYSICAL EXAMINATION: GENERAL: Showed a morbidly obese white woman, who did not appear to be in significant distress. VITAL SIGNS: Temperature is 96.7, pulse 80, respirations 16, blood pressure 165/96, O2 saturation on room air is 96%. ABDOMEN: Quite markedly obese. There was mild erythematous change of the skin inferior to the umbilicus and a bulky hernia that is not reducible. A small incision in the area was noted. Various manipulations did not show discomfort, but it was non-reducible. White count was 12.6, hematocrit of 45.9. HOSPITAL COURSE: She was fluid resuscitated following morning, taken to operation where a sizable incarcerated hernia was noted. There was ischemic fat and ischemic bowel noted. The omentum was resected allowing for better reduction of the hernia. The small bowel was mobilized and allowed to return to the abdominal cavity, but still appeared violaceous in appearance and was withdrawn out of the abdomen and segmental bowel resection undertaken. End-to-end anastomosis was accomplished. The properitoneal space was markedly well-developed with dissection to allow for additional repair. The peritoneal layer was reapproximated and implantation of Vicryl rather than Prolene mesh undertaken given the bowel resection and need to avoid infection of the implanted mesh. The fascia was additionally reapproximated. Vicryl sheet mesh was used and Vicryl sheet pledgets used for security and PDS suture also used. A drain was placed. Components released of one external oblique fascial edge on the left side was accomplished as well. Postoperatively, she was much improved. Prompt advancement of her diet from liquids to full liquids and low-fiber diet was met with nausea, vomiting, distention. Nasogastric tube was replaced and time was allowed to pass. Re-initiation of diet was ultimately allowed allowing for removal of her nasogastric tube. It is possible that the anastomotic area had edema and was not Electronically Signed By: NEELA AMIN MD 03/20/20 1033 PATIENT NAME: REDDY FLANAGAN DISCHARGE SUMMARY DATE OF : 52 REPORT #: [id number] PHYSICIAN: NEELA MAIN MD PCP: BINTA GUERRA PAC REPORT IS CONFIDENTIAL AND NOT TO BE RELEASED WITHOUT AUTHORIZATION [facility] [address] [place] [id number] Signed amenable to a regular diet. By time of discharge, she is ambulating well, tolerating a low-fiber diet and doing well. Her blood pressure was managed with enalapril intravenously administered and transition to her oral DELANEY inhibitor. DISCHARGE MEDICATIONS: Include Tylenol 1000 mg p.o. q.6 hours as needed for pain #90, refill 1, and ibuprofen 600 mg p.o. q.6 hours as needed for pain #60, no refills. She will resume her usual medication which includes enalapril 20 mg p.o. b.i.d., simvastatin 20 mg p.o. at bedtime, omeprazole 20 mg daily, Zofran 8 mg as needed for nausea, venlafaxine 75 mg p.o. daily, aspirin 81 mg p.o. daily, multivitamin 1 p.o. daily, and vitamin D3 2000 units daily. FOLLOWUP PLAN: She is return to see me in approximately 4 weeks. The drain that was placed at operation has been removed prior to discharge. She is especially instructed to use her abdominal binder which she is provided with 15/05 directly over the incision site. Additionally, she should lift no more than 10 pounds for the next 4 weeks. DISCHARGE DIAGNOSES: 1. Acute incisional hernia with incarceration of omentum and small bowel requiring omental excision, segmental bowel resection and anastomosis and repair of hernia including implantation of absorbable Vicryl mesh in the properitoneal space with reapproximation of fascia and lateral components release, left side. 2. Morbid obesity. 3. Hypertension. 4. Dyslipidemia. MD KRISTY Jimenez/CHARLES /[id number] cc: Raphael Wiggins MD Electronically Signed By: NEELA AMIN MD 03/20/20 1033 PATIENT NAME: REDDY FLANAGAN DISCHARGE SUMMARY DATE OF : 52 REPORT #: [id number] PHYSICIAN: NEELA AMIN MD PCP: BINTA GUERRA PAC REPORT IS CONFIDENTIAL AND NOT TO BE RELEASED WITHOUT AUTHORIZATION [facility] [address], [place] [address] Signed Copies: DELIA WIGGINS MD ~ Electronically Signed By: NEELA AMIN MD 03/20/20 1033 PATIENT NAME: REDDY FLANAGAN DISCHARGE SUMMARY DATE OF : 52 REPORT #: [id number] PHYSICIAN: NEELA AMIN MD PCP: BINTA GUERRA PAC REPORT IS CONFIDENTIAL AND NOT TO BE RELEASED WITHOUT AUTHORIZATION
== END 2020-03-19 13:00 | disposition home or self-care (01) | DRG 330 ==
LOC: ED 13:48 → MS 16:35
PROVIDERS: ADMIT Surgery
PROC: 0DBU0ZZ Excision of Omentum, Open Approach (ICD-10-PCS; 2020-03-13)
PROC: 0WUF0JZ Supplement Abdominal Wall with Synthetic Substitute, Open Approach (ICD-10-PCS; principal; 2020-03-13 12:00)
PROC: 0DB80ZZ Excision of Small Intestine, Open Approach (ICD-10-PCS; 2020-03-13 12:00)
DX: K43.0 Incisional hernia with obstruction, without gangrene (principal); K55.9 Vascular disorder of intestine, unspecified; Z68.42 Body mass index [BMI] 45.0-49.9, adult; I10 Essential (primary) hypertension; E66.01 Morbid (severe) obesity due to excess calories; E78.5 Hyperlipidemia, unspecified; Z20.828 Contact with and (suspected) exposure to other viral communicable diseases; Z87.891 Personal history of nicotine dependence; Z79.899 Other long term (current) drug therapy
CPT/HCPCS: 00790; 36415; 71045; 74018; 74177; 80053; 81001; 82247; 82465; 83615; 83690; 83735; 84100; 84478; 84550; 85025; 88302; 88307; 93005; 93010; 94760; 94762; 99284-25; C1781; J0690; J1100; J1644; J1885; J2270; J2405; J2550; J2704; J3010; J7030; J7121; Q9967; U0002

== ENCOUNTER 2020-03-22 12:22 | Emergency (ER) | payer MEDICARE ==
[~2020-03-22] VITALS: Ht 167.6 cm; Wt 127.0 kg
--- OUTSIDE RECORDS SUMMARY | ~2020-03-22 | XMS | Encounter Summary ---
Demographics + + + | Address | [address] | | | [place] [address] | + + + | Home Phone | | + + + | Preferred Language | Unknown | + + + | Marital Status | Single | + + + | Anglican Affiliation | Unknown | + + + | Race | White | + + + | Ethnic Group | Not or | + + + Author + + + | Organization | Unknown | + + + | Address | Unknown | + + + | Phone | Unavailable | + + + Support + + +---------+ + | Name | Relationship | Address | Phone | + + +---------+ + | Marifer Valentin | ECON | Unknown | | + + +---------+ + Care Team Providers + +------+ + | Care Aurist Name | Role | Phone | + +------+ + | Stephanie Washington | PCP | | + +------+ + Encounter Details +--------+--------+ + + + | Date | Type | Department | Care Team | Description | +--------+--------+ + + + | 07/18/ | Travel | | | | | 2019 | | | | | +--------+--------+ + + + Social History + + [...]
--- OUTSIDE RECORDS SUMMARY | ~2020-03-22 | XMS | Encounter Summary ---
Demographics + + + | Address | [address] | | | [place] [address] | + + + | Home Phone | | + + + | Preferred Language | Unknown | + + + | Marital Status | Single | + + + | Restoration Affiliation | Unknown | + + + | Race | White | + + + | Ethnic Group | Not or | + + + Author + + + | Author | [facility] | + + + | Organization | [facility] | + + + | Address | Unknown | + + + | Phone | Unavailable | + + + Support + + +---------+ + | Name | Relationship | Address | Phone | + + +---------+ + | Marifer Valentin | ECON | Unknown | | + + +---------+ + Care Team Providers + +------+ + | Care Lastex Operator Name | Role | Phone | + +------+ + | Stephanie Washington | PCP | | + +------+ + Reason for Visit + + + | Reason | Comments | + + + | Bariatric Nutrition | | + + + Consultation (Routine) + +--------+ + + + + | Status | Reason | Specialty | Diagnoses / | Referred By | Referred To | | | | | Procedures | Contact | Contact | + +--------+ + + + + | Pending | | Nutrition | Diagnoses | Ly Vo | Fn | | Review | | | Severe | Adriane, MD | [facility] | | | | | obesity (BMI | [address] | [address] | | | | | >= 40) | [address] | [address] | | | | | ([facility]) | Rd | Center for | | | | | Procedures | [place], [place] | Health and | | | | | CONSULT TO | [address] | Healing, | | | | | BARIATRIC | Phone: | Building [address] | | | | | SURGERY | [phone] | [place], [place] | | | | | | Fax: | [address] | | | | | | [phone] | Phone: | | | | | | | [phone] | | | | | | | Fax: | | | | | | | [phone] | + +--------+ + + + + Encounter Details +--------+---------+ + + + | Date | Type | Department | Care Team | Description | +--------+---------+ + + + | 07/18/ | Office | Digestive Health | Shoshana Paniagua, | Severe obesity (BMI | | 2019 | Visit | Center at [facility] [address] | >= 40) ([facility]) | | | | [facility] | [address] | (Primary Dx) | | | | for Health and | [place], [place] | | | | | [facility] [address] | [address] | | | | | [place], [place] | | | | | | [address] | | | | | | [phone] | | | +--------+---------+ + + + [...] + + + | Blood Pressure | - | - | | + + + + + | Pulse | - | - | | + + + + + | Temperature | - | - | | + + + + + | Respiratory Rate | - | - | | + + + + + | Oxygen Saturation | - | - | | + + + + + | Inhaled Oxygen | - | - | | | Concentration | | | | + + + + + | Weight | 132.4 kg (291 lb | 07/18/2019 2:00 PM | | | | 12.8 oz) | PDT | | + + + + + | Height | 167.6 cm (5' 6") | 07/18/2019 2:00 PM | | | | | PDT | | + + + + + | Body Mass Index | 47.1 | 07/18/2019 2:00 PM | | | | | PDT | | + + + + + documented in this encounter Progress Notes Shoshana Paniagua, RD - 07/18/2019 2:00 PM PDTFormatting of this note might be different fr om the original. Referring Provider: [facility], Pre-Bariatric Surgery Evaluation Initial diet consultation prior to having Serafin-En-Y gastric bypass surgery or Sleeve Gastre ctomy. Documented Time of Visit: 2:00 until 3:01 (61 minutes ijxc-eu-suns with patient) SUBJECTIVE: Pt comes in alone. Pt shares she has a hiatal hernia and is working with Dr. Anurag dunlap for help with it. Patient viewed online seminar prior to visit. What have you been doing to prepare for surgery: talking to people that have had surgery Questions/Information desired today: none Goals & reasons why patient wants to have bariatric surgery: less knee pain, more energy, h ealthier relationship with food Food Allergies: No Food Intolerances: No Lactose Intolerance: No Emotional Eating: Yes, due to fatigue, anxiety, loneliness, and frustration Recent weight changes: Yes, 30# loss in past few months r/t discomfort with hiatal hernia Previous weight loss attempts: Weight Watchers, TOPS, phen-fen Are you able exercise? Yes, but limited to pool exercises/low impact because of knee pain Current Physical Exercise: None but planning to join gym by Nov 24 hr food recall: Awoke at 7 am 7:15am 1 scrambled egg + 2 slices deli ham + 2/3rds slice buttered sourdough toast, glass o f whole milk, plum (or large portion of oatmeal with raisins and whole milk) 32 oz Diet pepsi 1:30pm Roast beef and 1/4 avocado sandwich on 2 slices wheat bread 32 oz Diet pepsi 4pm 4 Prunes 7pm [facility] Grilled chicken salad with [facility] dressing + 20 oz crystal ligh t Typical Snacks: pudding, SF jello, ice cream cone, fredrick's cups, caramel/cheese popcorn Typical Beverages: daily 16+ oz diet pepsi, 20 oz crystal light daily, daily glass of whole milk, 4x/week 1-2 cups coffee with non-dairy creamer + 1-2 packets saccharin; doesn't like the taste of water, occasional regular soda OBJECTIVE: Height: Ht Readings from Last 1 Encounters: 07/18/19 1.676 m (5' 6") Weight: Wt Readings from Last 1 Encounters: 07/18/19 132.4 kg (291 lb 12.8 oz) BMI: Body mass index is 47.1 kg/m. Past Medical History: Past Medical History: Diagnosis Date Alcoholism (HCC) Sober since 1999 Anemia Anxiety Basal cell carcinoma Bilateral chronic knee pain Carpal tunnel syndrome Depression Fibroid GERD (gastroesophageal reflux disease) Hypertension Incisional hernia 6cm, incarcerated Metabolic syndrome Morbid obesity (HCC) Obstructive sleep apnea Medications: See list in Epic snap shot Dietary Supplements: Vitamin D Labs: see Results Review for current labs (if available) Nutrition Diagnosis: Obesity as evidenced by BMI of Body mass index is 47.1 kg/m.. Factors contributing to obesity: Emotional eating Joint pain as a barrier to physical activity Genetics Large portions Intake of excessive empty calories Pre-Surgery Diet: Provided written and verbal diet and behavior suggestions to help patient prepare for surge ry. -Eat within one hour of waking, then every 3-4 waking hours -Include protein with all meals & snacks -Use healthy plate model. -Begin keeping daily food logs -Choose foods & beverages with < 14 g sugar & < 10 g fat per serving -Eliminate liquid calories and carbonation; limit caffeine to 16 oz/day -Begin fluids from meals. Nothing during and for 30 minutes after. -Sip fluids throughout the day, aim for 64 oz/day (non-caloric, non-caffeinated, non-carbo nated) -Begin practicing mindful eating Explore exercise program options Education provided: Provided and reviewed an instructional handout (bariatric surgery notebook) with the francesca t on: behavior modifications, food items, post-surgery diet progression, sample menus and vi tamin and mineral supplements needed after surgery. Information provided in writing, and use d visual aids to demonstrate food portions post-surgery and size of stomach after surgery. Patient's Comprehension: The patient is: Receptive Stage of change: Preparation Barrier(s) to education: No Learning style: Patient is a Visual learner and Verbal learner Expected Outcome: I think the patient will do moderately if following all lifestyle and be havioral changes discussed today. Patient verbalizes understanding that surgery is a tool to help achieve and maintain weight loss but that surgery will not eliminate the problems that led to weight gain. Yes GOAL: The patient's goal is to have weight loss surgery to maintain weight loss and improve other health conditions. 1. Continue to practice behavioral changes to prepare for surgery. 2. Increase physical activity. 3. Review all information provided for post surgery diet progression in bariatric surger y notebook. Attend 2 pre-surgery classes. 4. Call or send Solasta message to dietitian with any questions. Contact information was provided. Follow up with dietitian 1-2 weeks after surgery at first post-op visit. Shoshana Paniagua MS, RDN, CSOWM, LD, CDE [facility] Bariatrics [phone] documented in this e ncounter Plan of Treatment Not on filedocumented as of this encounter Procedures + +--------+ + + + | Procedure Name | Priori | Date/Time | Associated Diagnosis | Comments | | | ty | | | | + +--------+ + + + | MA MNT INITIAL | Routin | 07/18/2019 | Severe obesity | | | ASSESSMNT X15MIN | e | 3:03 PM | (BMI >= 40) ([facility]) | | | | | PDT | | | + +--------+ + + + documented in this encounter Visit Diagnoses + + | Diagnosis | + + | Severe obesity (BMI >= 40) (HCC) - Primary Morbid obesity | + + documented in this encounter
--- OUTSIDE RECORDS SUMMARY | ~2020-03-22 | XMS | Encounter Summary ---
Demographics + + + | Address | [address] | | | [place] [address] | + + + | Home Phone | | + + + | Preferred Language | Unknown | + + + | Marital Status | Single | + + + | Rastafarian Affiliation | Unknown | + + + [...] Team Providers + +------+ + | Care Elementary School Principal Name | Role | Phone | + +------+ + PCP | Unavailable | + +------+ + Encounter Details +--------+ + + + + | Date | Type | Department | Care Team | Description | +--------+ + + + + | 11/30/ | Abstract | Digestive Health | Clinic, Surgery | | | 2019 | | [place] [facility] [address] | | | | | | [address] | | | | | | Mailcode: [place] | | | | | | [facility] and | | | | | | Healing, [address] | | | | | | [place], [place] | | | | | | [address] | | | | | | [phone] | | | +--------+ + + + [...]
--- OUTSIDE RECORDS SUMMARY | ~2020-03-22 | XMS | Encounter Summary ---
Demographics + + + | Address | [address] | | | [place] [address] | + + + | Home Phone | | + + + | Preferred Language | Unknown | + + + | Marital Status | | + + + | Buddhism Affiliation | 1027 | + + + | Race | Unknown | + + + | Ethnic Group | Unknown | + + + Author + + + | Author | [facility] | | | and [place] | + + + | Organization | [facility] | | | and [place] | [...] Team Providers + +------+ + | Care Data Reduction Technician Name | Role | Phone | + +------+ + | Peng Fink MD | PCP | | + +------+ + Encounter Details +--------+ + + + + | Date | Type | Department | Care Team | Description | +--------+ + + + + | 11/11/ | Hospital | [facility] | Marita Albrecht, | | | 2005 | Encounter | [facility] | [address] | | | | | [address] [place] [address] | | | | | [place], | [phone] | | | | | [place] [address] | | | | | | [phone] | | | +--------+ + + + [...]
--- OUTSIDE RECORDS SUMMARY | ~2020-03-22 | XMS | Encounter Summary ---
Demographics + + + | Address | [address] | | | [place] [address] | + + + | Home Phone | | + + + | Preferred Language | Unknown | + + + | Marital Status | Single | + + + | Pentecostalism Affiliation | Unknown | + + + | Race | White | + + + | Ethnic Group | Not or | + + + Author + + + | Author | [facility] | + + + | Organization | [facility] | + + + | Address | Unknown | + + + | Phone | Unavailable | + + + Support + + +---------+ + | Name | Relationship | Address | Phone | + + +---------+ + | Marifer Valentin | ECON | Unknown | | + + +---------+ + Care Team Providers + +------+ + | Care Time Checker Name | Role | Phone | + +------+ + | Stephanie Washington | PCP | | + +------+ + Encounter Details +--------+ + + + + | Date | Type | Department | Care Team | Description | +--------+ + + + + | 07/08/ | Abstract | Digestive Health | Clinic, Surgery | | | 2019 | | [place] [facility] [address] | | | | | | [address] | | | | | | Mailcode: [place] | | | | | | for Health and | | | | | | Healing, [address] | | | | | | [place], [place] | | | | | | [address] | | | | | | [phone] | | | +--------+ + + + [...]
--- OUTSIDE RECORDS SUMMARY | ~2020-03-22 | XMS | Encounter Summary ---
Demographics + + + | Address | [address] | | | [place] [address] | + + + | Home Phone | | + + + | Preferred Language | Unknown | + + + | Marital Status | Single | + + + | Baptism Affiliation | Unknown | + + + | Race | White | + + + | Ethnic Group | Not or | + + + Author + + + | Author | [facility] | + + + | Organization | [facility] | + + + | Address | Unknown | + + + | Phone | Unavailable | + + + Support + + +---------+ + | Name | Relationship | Address | Phone | + + +---------+ + | Marifer Valentin | ECON | Unknown | | + + +---------+ + Care Team Providers + +------+ + | Care Scouring Pads Supervisor Name | Role | Phone | [...] 2019 | on | Center at [facility] [address] | [facility] | | | | | [address] | [place], [place] | | | | | Mailcode: Center | [address] | | | | | for Health and | | | | | | [facility] [address] | | | | | | [place], [place] | | | | | | [address] | | | | | | | [...]
--- OUTSIDE RECORDS SUMMARY | ~2020-03-22 | XMS | Encounter Summary ---
Demographics + + + | Address | [address] [place] | | | [place] [address] | + + + | Home Phone | | + + + | Preferred Language | Unknown | + + + | Marital Status | | + + + | Oriental Orthodox Affiliation | 1027 | + + + | Race | Unknown | + + + | Ethnic Group | Unknown | + + + Author + + + | Author | [facility] | | | and [place] | + + + | Organization | [facility] | | | and [place] [...] Team Providers + +------+ + | Care Any Commodity Sales Deliverer Name | Role | Phone | + [...] [place] | | | | | [place] | | [address] | | | | | [place] | | Phone: | | | | | 2.1-3CM | | [phone] | | | | | [place],ARM,LE | | Fax: | | | | | [address] [place] | | [phone] | | | | | GRFT | [...] | [address] | | | | [address] | [place] [address] | | | | | [place] | [phone] | | | | | | | [...] RIGHT UPPER BACK BASAL CELL CARCINOMA; Surgeon: Sunedep Lee MD; Location: [facility] ALLERGIES: Review of patient's allergies indicates no [...] appointment: Appointment with Dr. Lee at the [facility] in the [facility] in 1 week as scheduled. Activity: No [...] d in this encounter Discharge Instructions Instructions uSndeep Lee MD - 10/07/2015POST-OPERATIVE INSTRUCTIONS GENERAL Activity: [...] up: Follow-up with Dr. Lee at the [facility], 2nd Floor on 10/13 at 8:00am. Please [...] dependent perso n for the next 24 hours.:[id number]} documented in this encounter Medications at Time [...] | | 65Date of : 1950 CASE: [id number]: Tiffanie | CELLNETI X | | [facility] [id number]: Tiffanie Valentin | | | Date of [...] scar is 0.9cm from the deep margin. Market Asset Protection Manager | | | sections are submitted asfollows: A1 - tips; A2-A8 - entire lesion | | | blocked out. (pam/[id number]) Jackson Vivar M.D. Electronically | | | signed 10/09/2015 13:07 Performed at [facility] | | | [place] [address] CLIA#: | | | [id number]: Unless otherwise specified, a microscopic exam | | | has been performed. Received Date: 10/07/2015Collection Date: | | | 10/07/2015Referring Physician: Jesus IRVIN, [facility] | | | Physician copies: | | [...] | | |cm from the deep margin. Market Asset Protection Manager sections are submitted as | | |follows: A1 - tips; A2-A8 - entire lesion blocked out. (pam/[id number]) | | | | | | | | | | | | | | | Jackson Vivar M.D. Electronically signed 10/09/2015 13:07 (958) | | |[phone] Performed at [facility], [address] [place] [address], | | |[place] [address] [facility]#: [id number] | | |Microscopic: Unless otherwise specified, a [...] + + | REFERENCE LAB | [address] | [place] [address] | [phone] | | [employer] | [address] | | | + + [...]
--- OUTSIDE RECORDS SUMMARY | ~2020-03-22 | XMS | Encounter Summary ---
Demographics + + + | Address | [address] | | | [place] [address] | + + + | Home Phone [...] Author + + + | Author | [facility] | + + + | Organization | [facility] | + + + | Address | Unknown | + + + | Phone | Unavailable | + + + Support + + +---------+ + | Name | Relationship | Address | Phone | + + +---------+ + | Marifer Valentin | ECON | Unknown | | + + +---------+ + Care Team Providers + +------+ + | Care Right Of Way Worker Name | Role | Phone | [...] [address] | | | | | ([facility]) | Rd | Center for | | | | | Procedures | [place], [place] | Health and | | | | | CONSULT TO | [address] | Healing, | | | | | BARIATRIC | Phone: | Building [address] | | | | | SURGERY | [phone] | [place], [place] | | | | | | Fax: | [address] | | | | | | [phone] | Phone: | | | | | | | [phone] | | | | | | | Fax: | | | | | | | [phone] | + +--------+ + + + + Encounter Details +--------+---------+ + + + | Date | Type | Department | Care Team | Description | +--------+---------+ + + + | 07/18/ | Office | Digestive Health | Shoshana Paniagua, | Severe obesity (BMI | | 2019 | Visit | Center at [facility] [address] | >= 40) ([facility]) | | | | [facility] | [address] | (Primary Dx) | | | | for Health and | [place], [place] | | | | | [facility] | [address] | | | | | [place], [place] | | | | | | [address] | | | | | | [phone] | | | +--------+---------+ + + + [...] of Visit: 2:00 until 3:01 (61 minutes [id number] with patient) SUBJECTIVE: Pt comes in alone. [...] Diet pepsi 4pm 4 Prunes 7pm [employer] [facility] Grilled chicken salad with [facility], [place] dressing + 20 oz crystal ligh t [...] 2 pre-surgery classes. 4. Call or send [employer] message to dietitian with any questions. Contact information was provided. Follow up with dietitian 1-2 weeks after surgery at first post-op visit. Shoshana Paniagua MS, RDN, CSOWM, LD, CDE [facility] Bariat[facility] [phone] documented in this e ncounter Plan of Treatment Not on filedocumented as of this encounter Procedures + +--------+ + + + | Procedure Name | Priori | Date/Time | Associated Diagnosis | Comments | | | ty | | | | + +--------+ + + + | [place] MNT INITIAL | Routin | 07/18/2019 | Severe obesity | | | ASSESSMNT X15MIN | e | 3:03 PM | (BMI >= 40) ([facility]) | | | | | PDT | | | + +--------+ + + + documented in this encounter Visit Diagnoses + + | Diagnosis | + + | Severe obesity (BMI >= 40) (HCC) - Primary Morbid obesity | + + documented in this encounter
--- OUTSIDE RECORDS SUMMARY | ~2020-03-22 | XMS | Encounter Summary ---
Demographics + + + | Address | [address] | | | [place] [address] | + + + | Home Phone | | + + + | Preferred Language | Unknown | + + + | Marital Status | Single | + + + | Hoahaoism Affiliation | Unknown | + + + | Race | White | + + + | Ethnic Group | Not or | + + + Author + + + | Author | [facility] | + + + | Organization | [facility] | + + + | Address | Unknown | + + + | Phone | Unavailable | + + + Support + + +---------+ + | Name | Relationship | Address | Phone | + + +---------+ + | Marifer Valentin | ECON | Unknown | | + + +---------+ + Care Team Providers + +------+ + | Care Call Center Nurse Name | Role | Phone | + [...] Medical Records | | 2019 | | [place] [facility] [address] | | Review | | | | [address] | | | | | | Mailcode: [place] | | | | | | [facility] Health and | | | | | | [facility] [address] | | | | | | [place], [place] | | | | | | [address] | | | | | | [phone] | | | +--------+ + + + [...]
--- OUTSIDE RECORDS SUMMARY | ~2020-03-22 | XMS | Encounter Summary ---
Demographics + + + | Address | [address] | | | [place] [address] | + + + | Home Phone [...] + + | Author | [facility] | + + + | Organization | [facility] | + + + | Address | Unknown | + + + | Phone | Unavailable | + + + Support + + +---------+ + | Name | Relationship | Address | Phone | + + +---------+ + | Marifer Valentin | ECON | Unknown | | + + +---------+ + Care Team Providers + +------+ + | Care Rubber Roller Grinder Name | Role | Phone | + +------+ + | Stephanie Washington | PCP | | + +------+ + Encounter Details +--------+------+ + + + | Date | Type | Department | Care Team | Description | +--------+------+ + + + | 08/19/ | Lab | [facility] | | | | 2019 | | [address] | | | | | | [place], [place] | | | | | | [address] | | | | | | [phone] | | | +--------+------+ + + + Social History + + [...] | + +--------+ + + + | ZINC, SERUM | Routin | 08/19/2019 | Morbid obesity | Results for this | | | e | 3:54 PM | with BMI of | procedure are in the | | | | PDT | 45.0-49.9, adult | results section. | | | | | (HCC) Depression, | | | | | | unspecified | | | | | | depression type | | | | | | Hypertension, | | | | | | unspecified type | | | | | | Obstructive sleep | | | | | | apnea | | | | | | Gastroesophageal | | | | | | reflux disease, | | | | | | esophagitis presence | | | | | | not specified | | | | | | Anemia, unspecified | | | | | | type | | | | | | Hyperlipidemia, | | | | | | unspecified | | | | | | hyperlipidemia type | | | | | | Bilateral chronic | | | | | | knee pain Anxiety | | | | | | Incisional hernia, | | | | | | without obstruction | | | | | | or gangrene | | + +--------+ + + + | VITAMIN E, SERUM | Routin | 08/19/2019 | Morbid obesity | Results for this | | | e | 3:54 PM | with BMI of | procedure are in the | | | | PDT | 45.0-49.9, adult | results section. | | | | | (HCC) Depression, | | | | | | unspecified | | | | | | depression type | | | | | | Hypertension, | | | | | | unspecified type | | | | | | Obstructive sleep | | | | | | apnea | | | | | | Gastroesophageal | | | | | | reflux disease, | | | | | | esophagitis presence | | | | | | not specified | | | | | | Anemia, unspecified | | | | | | type | | | | | | Hyperlipidemia, | | | | | | unspecified | | | | | | hyperlipidemia type | | | | | | Bilateral chronic | | | | | | knee pain Anxiety | | | | | | Incisional hernia, | | | | | | without obstruction | | | | | | or gangrene | | + +--------+ + + + | VITAMIN D, | Routin | 08/19/2019 | Morbid obesity | Results for this | | 25-HYDROXY, SERUM | e | 3:54 PM | with BMI of | procedure are in the | | | | PDT | 45.0-49.9, adult | results section. | | | | | ([facility]) Depression, | | | | | | unspecified | | | | | | depression type | | | | | | Hypertension, | | | | | | unspecified type | | | | | | Obstructive sleep | | | | | | apnea | | | | | | Gastroesophageal | | | | | | reflux disease, | | | | | | esophagitis presence | | | | | | not specified | | | | | | Anemia, unspecified | | | | | | type | | | | | | Hyperlipidemia, | | | | | | unspecified | | | | | | hyperlipidemia type | | | | | | Bilateral chronic | | | | | | knee pain Anxiety | | | | | | Incisional hernia, | | | | | | without obstruction | | | | | | or gangrene | | + +--------+ + + + | VITAMIN B-12 | Routin | 08/19/2019 | Morbid obesity | Results for this | | | e | 3:54 PM | with BMI of | procedure are in the | | | | PDT | 45.0-49.9, adult | results section. | | | | | (HCC) Depression, | | | | | | unspecified | | | | | | depression type | | | | | | Hypertension, | | | | | | unspecified type | | | | | | Obstructive sleep | | | | | | apnea | | | | | | Gastroesophageal | | | | | | reflux disease, | | | | | | esophagitis presence | | | | | | not specified | | | | | | Anemia, unspecified | | | | | | type | | | | | | Hyperlipidemia, | | | | | | unspecified | | | | | | hyperlipidemia type | | | | | | Bilateral chronic | | | | | | knee pain Anxiety | | | | | | Incisional hernia, | | | | | | without obstruction | | | | | | or gangrene | | + +--------+ + + + | VITAMIN B1, WHOLE | Routin | 08/19/2019 | Morbid obesity | Results for this | | BLOOD | e | 3:54 PM | with BMI of | procedure are in the | | | | PDT | 45.0-49.9, adult | results section. | | | | | (HCC) Depression, | | | | | | unspecified | | | | | | depression type | | | | | | Hypertension, | | | | | | unspecified type | | | | | | Obstructive sleep | | | | | | apnea | | | | | | Gastroesophageal | | | | | | reflux disease, | | | | | | esophagitis presence | | | | | | not specified | | | | | | Anemia, unspecified | | | | | | type | | | | | | Hyperlipidemia, | | | | | | unspecified | | | | | | hyperlipidemia type | | | | | | Bilateral chronic | | | | | | knee pain Anxiety | | | | | | Incisional hernia, | | | | | | without obstruction | | | | | | or gangrene | | + +--------+ + + + | VITAMIN A, SERUM | Routin | 08/19/2019 | Morbid obesity | Results for this | | | e | 3:54 PM | with BMI of | procedure are in the | | | | PDT | 45.0-49.9, adult | results section. | | | | | (HCC) Depression, | | | | | | unspecified | | | | | | depression type | | | | | | Hypertension, | | | | | | unspecified type | | | | | | Obstructive sleep | | | | | | apnea | | | | | | Gastroesophageal | | | | | | reflux disease, | | | | | | esophagitis presence | | | | | | not specified | | | | | | Anemia, unspecified | | | | | | type | | | | | | Hyperlipidemia, | | | | | | unspecified | | | | | | hyperlipidemia type | | | | | | Bilateral chronic | | | | | | knee pain Anxiety | | | | | | Incisional hernia, | | | | | | without obstruction | | | | | | or gangrene | | + +--------+ + + + | PTH, SERUM | Routin | 08/19/2019 | Morbid obesity | Results for this | | | e | 3:54 PM | with BMI of | procedure are in the | | | | PDT | 45.0-49.9, adult | results section. | | | | | (HCC) Depression, | | | | | | unspecified | | | | | | depression type | | | | | | Hypertension, | | | | | | unspecified type | | | | | | Obstructive sleep | | | | | | apnea | | | | | | Gastroesophageal | | | | | | reflux disease, | | | | | | esophagitis presence | | | | | | not specified | | | | | | Anemia, unspecified | | | | | | type | | | | | | Hyperlipidemia, | | | | | | unspecified | | | | | | hyperlipidemia type | | | | | | Bilateral chronic | | | | | | knee pain Anxiety | | | | | | Incisional hernia, | | | | | | without obstruction | | | | | | or gangrene | | + +--------+ + + + | METHYLMALONIC ACID, | Routin | 08/19/2019 | Morbid obesity | Results for this | | SERUM | e | 3:54 PM | with BMI of | procedure are in the | | | | PDT | 45.0-49.9, adult | results section. | | | | | (HCC) Depression, | | | | | | unspecified | | | | | | depression type | | | | | | Hypertension, | | | | | | unspecified type | | | | | | Obstructive sleep | | | | | | apnea | | | | | | Gastroesophageal | | | | | | reflux disease, | | | | | | esophagitis presence | | | | | | not specified | | | | | | Anemia, unspecified | | | | | | type | | | | | | Hyperlipidemia, | | | | | | unspecified | | | | | | hyperlipidemia type | | | | | | Bilateral chronic | | | | | | knee pain Anxiety | | | | | | Incisional hernia, | | | | | | without obstruction | | | | | | or gangrene | | + +--------+ + + + | IRON AND TIBC, SERUM | Routin | 08/19/2019 | Morbid obesity | Results for this | | | e | 3:54 PM | with BMI of | procedure are in the | | | | PDT | 45.0-49.9, adult | results section. | | | | | (HCC) Depression, | | | | | | unspecified | | | | | | depression type | | | | | | Hypertension, | | | | | | unspecified type | | | | | | Obstructive sleep | | | | | | apnea | | | | | | Gastroesophageal | | | | | | reflux disease, | | | | | | esophagitis presence | | | | | | not specified | | | | | | Anemia, unspecified | | | | | | type | | | | | | Hyperlipidemia, | | | | | | unspecified | | | | | | hyperlipidemia type | | | | | | Bilateral chronic | | | | | | knee pain Anxiety | | | | | | Incisional hernia, | | | | | | without obstruction | | | | | | or gangrene | | + +--------+ + + + | INR | Routin | 08/19/2019 | Morbid obesity | Results for this | | | e | 3:54 PM | with BMI of | procedure are in the | | | | PDT | 45.0-49.9, adult | results section. | | | | | (HCC) Depression, | | | | | | unspecified | | | | | | depression type | | | | | | Hypertension, | | | | | | unspecified type | | | | | | Obstructive sleep | | | | | | apnea | | | | | | Gastroesophageal | | | | | | reflux disease, | | | | | | esophagitis presence | | | | | | not specified | | | | | | Anemia, unspecified | | | | | | type | | | | | | Hyperlipidemia, | | | | | | unspecified | | | | | | hyperlipidemia type | | | | | | Bilateral chronic | | | | | | knee pain Anxiety | | | | | | Incisional hernia, | | | | | | without obstruction | | | | | | or gangrene | | + +--------+ + + + | HOMOCYSTEINE TOTAL, | Routin | 08/19/2019 | Morbid obesity | Results for this | | PLASMA | e | 3:54 PM | with BMI of | procedure are in the | | | | PDT | 45.0-49.9, adult | results section. | | | | | (HCC) Depression, | | | | | | unspecified | | | | | | depression type | | | | | | Hypertension, | | | | | | unspecified type | | | | | | Obstructive sleep | | | | | | apnea | | | | | | Gastroesophageal | | | | | | reflux disease, | | | | | | esophagitis presence | | | | | | not specified | | | | | | Anemia, unspecified | | | | | | type | | | | | | Hyperlipidemia, | | | | | | unspecified | | | | | | hyperlipidemia type | | | | | | Bilateral chronic | | | | | | knee pain Anxiety | | | | | | Incisional hernia, | | | | | | without obstruction | | | | | | or gangrene | | + +--------+ + + + | HEMOGLOBIN A1C, | Routin | 08/19/2019 | Morbid obesity | Results for this | | BLOOD | e | 3:54 PM | with BMI of | procedure are in the | | | | PDT | 45.0-49.9, adult | results section. | | | | | (HCC) Depression, | | | | | | unspecified | | | | | | depression type | | | | | | Hypertension, | | | | | | unspecified type | | | | | | Obstructive sleep | | | | | | apnea | | | | | | Gastroesophageal | | | | | | reflux disease, | | | | | | esophagitis presence | | | | | | not specified | | | | | | Anemia, unspecified | | | | | | type | | | | | | Hyperlipidemia, | | | | | | unspecified | | | | | | hyperlipidemia type | | | | | | Bilateral chronic | | | | | | knee pain Anxiety | | | | | | Incisional hernia, | | | | | | without obstruction | | | | | | or gangrene | | + +--------+ + + + | FERRITIN | Routin | 08/19/2019 | Morbid obesity | Results for this | | | e | 3:54 PM | with BMI of | procedure are in the | | | | PDT | 45.0-49.9, adult | results section. | | | | | (HCC) Depression, | | | | | | unspecified | | | | | | depression type | | | | | | Hypertension, | | | | | | unspecified type | | | | | | Obstructive sleep | | | | | | apnea | | | | | | Gastroesophageal | | | | | | reflux disease, | | | | | | esophagitis presence | | | | | | not specified | | | | | | Anemia, unspecified | | | | | | type | | | | | | Hyperlipidemia, | | | | | | unspecified | | | | | | hyperlipidemia type | | | | | | Bilateral chronic | | | | | | knee pain Anxiety | | | | | | Incisional hernia, | | | | | | without obstruction | | | | | | or gangrene | | + +--------+ + + + | COPPER, SERUM | Routin | 08/19/2019 | Morbid obesity | Results for this | | | e | 3:54 PM | with BMI of | procedure are in the | | | | PDT | 45.0-49.9, adult | results section. | | | | | (HCC) Depression, | | | | | | unspecified | | | | | | depression type | | | | | | Hypertension, | | | | | | unspecified type | | | | | | Obstructive sleep | | | | | | apnea | | | | | | Gastroesophageal | | | | | | reflux disease, | | | | | | esophagitis presence | | | | | | not specified | | | | | | Anemia, unspecified | | | | | | type | | | | | | Hyperlipidemia, | | | | | | unspecified | | | | | | hyperlipidemia type | | | | | | Bilateral chronic | | | | | | knee pain Anxiety | | | | | | Incisional hernia, | | | | | | without obstruction | | | | | | or gangrene | | + +--------+ + + + | COMPLETE METABOLIC | Routin | 08/19/2019 | Morbid obesity | Results for this | | SET | e | 3:54 PM | with BMI of | procedure are in the | | (NA,K,CL,CO2,BUN,CRE | | PDT | 45.0-49.9, adult | results section. | | AT,GLUC,CA,AST,ALT,B | | | (HCC) Depression, | | | CHANA TOTAL,ALK | | | unspecified | | | PHOS,ALB,PROT TOTAL) | | | depression type | | | | | | Hypertension, | | | | | | unspecified type | | | | | | Obstructive sleep | | | | | | apnea | | | | | | Gastroesophageal | | | | | | reflux disease, | | | | | | esophagitis presence | | | | | | not specified | | | | | | Anemia, unspecified | | | | | | type | | | | | | Hyperlipidemia, | | | | | | unspecified | | | | | | hyperlipidemia type | | | | | | Bilateral chronic | | | | | | knee pain Anxiety | | | | | | Incisional hernia, | | | | | | without obstruction | | | | | | or gangrene | | + +--------+ + + + | CBC ONLY | Routin | 08/19/2019 | Morbid obesity | Results for this | | | e | 3:54 PM | with BMI of | procedure are in the | | | | PDT | 45.0-49.9, adult | results section. | | | | | ([facility]) Depression, | | | | | | unspecified | | | | | | depression type | | | | | | Hypertension, | | | | | | unspecified type | | | | | | Obstructive sleep | | | | | | apnea | | | | | | Gastroesophageal | | | | | | reflux disease, | | | | | | esophagitis presence | | | | | | not specified | | | | | | Anemia, unspecified | | | | | | type | | | | | | Hyperlipidemia, | | | | | | unspecified | | | | | | hyperlipidemia type | | | | | | Bilateral chronic | | | | | | knee pain Anxiety | | | | | | Incisional hernia, | | | | | | without obstruction | | | | | | or gangrene | | + +--------+ + + + documented in this encounter Results ZINC, SERUM (08/19/2019 3:54 PM PDT) + + + + + + | Component | Value | Ref Range | Performed | Pathologist | | | | | At | Signature | + + + + + + | ZINC SERUM | 78.0Comment: | 60.0 - 120.0 | [facility] | | | | INTERPRETIVE | ug/dL | REG UNIV | | | | INFORMATION: Zinc, Serum | | PTH - [facility] | | | | or Plasma Elevated | | | | | | results may be due to | | | | | | skin or | | | | | | collection-related | | | | | | contamination, including | | | | | | the use of a | | | | | | noncertified metal-free | | | | | | collection/transport | | | | | | tube. If contamination | | | | | | concerns exist due to | | | | | | elevated levels of | | | | | | serum/plasma zinc, | | | | | | confirmation with a | | | | | | second specimen | | | | | | collected in a certified | | | | | | metal-free tube is | | | | | | recommended. Circulating | | | | | | zinc concentrations are | | | | | | dependent on albumin | | | | | | status and are depressed | | | | | | with malnutrition. | | | | | | Zinc may also be | | | | | | lowered with infection, | | | | | | inflammation, stress, | | | | | | oral contraceptives, and | | | | | | . Zinc may | | | | | | be elevated with zinc | | | | | | supplementation or | | | | | | fasting. Elevated zinc | | | | | | concentrations may | | | | | | interfere with copper | | | | | | absorption. Test | | | | | | developed and | | | | | | characteristics | | | | | | determined by [facility] | | | | | | [facility]. See | | | | | | Compliance Statement B: | | | | | | [employer]/CSPerformed | | | | | | by [address] | | | | | | [facility] | | | | | | [address] | | | | | | [phone].[employer]. | | | | | | [facility] hospitalJeffrey MD, | | | | | | Lab. Director | | | | + + + + + + + + | Specimen | + + | Blood - Blood | | (substance) | + + + + + + + | Performing | Address | City/State/Zipcode | Phone Number | | Organization | | | | + + + + + | [facility] | [address] | [place], [place] | | | UNIV PTH - INT[facility] | | [address] | | + + + + + VITAMIN E, SERUM (08/19/2019 3:54 PM PDT) + + + + + + | Component | Value | Ref Range | Performed | Pathologist | | | | | At | Signature | + + + + + + | VITAMIN E | 1.9Comment: Performed by | 0.0 - 6.0 mg/L | [facility] | | | (ROC ALEXIS) | [address] | | REG UNIV | | | SERUM | [address], [facility] | | PTH - [facility] | | | | [address] | | | | | | [phone].[employer]. | | | | | | Jeffrey macias MD, | | | | | | Lab. Director | | | | + + + + + + | VITAMIN E | 8.1Comment: Test | 5.5 - 18.0 mg/L | [facility] | | | (ALPHA | developed and | | REG UNIV | | | ALEXIS), SERUM | characteristics | | PTH - [facility] | | | | determined by [facility] | | | | | | [facility]. See | | | | | | Compliance Statement B: | | | | | | [employer]/CS | | | | + + + + + + + + | Specimen | + + | Blood - Blood | | (substance) | + + + + + + + | Performing | Address | City/State/Zipcode | Phone Number | | Organization | | | | + + + + + | [facility] | [address] | [place], [place] | | | UNIV PTH - [facility] | | [address] | | + + + + + VITAMIN D, 25-HYDROXY, SERUM (08/19/2019 3:54 PM PDT) + +-------+ + + + | Component | Value | Ref Range | Performed | Pathologist | | | | | At | Signature | + +-------+ + + + | VITAMIN D | 36.0 | 30 - 80 ng/mL | [facility] | | | 25 HYDROXY | | | LABORATORY | | | | | | SERVICES, | | | | | | CORE | | + +-------+ + + + + + | Specimen | + + | Blood - Blood | | (substance) | + + + + + | Narrative | Performed At | + + + | Reference Interval: 0-18years: Deficiency: <20 ng/mL | [facility] | | Optimum level: >or=20 ng/mL | LABORATORY | | >18years: Deficiency: <20 | SERVICES, CORE | | ng/mL Insufficiency: 20-29 ng/mL | | | Optimum Level: 30-80 ng/mL High: | | | 81-150 ng/ml Toxic: >150 ng/mL | | + + + + + + + + | Performing | Address | City/State/Zipcode | Phone Number | | Organization | | | | + + + + + | [facility] | [address] | [place] [address] | | | SERVICES, CORE | [address] | | | + + + + + VITAMIN B-12 (08/19/2019 3:54 PM PDT) + +-------+ + + + | Component | Value | Ref Range | Performed | Pathologist | | | | | At | Signature | + +-------+ + + + | VITAMIN B12 | 459 | 193 - 986 pg/mL | [facility] | | | | | | LABORATORY | | | | | | SERVICES, | | | | | | CORE | | + +-------+ + + + + + | Specimen | + + | Blood - Blood | | (substance) | + + + + + + + | Performing | Address | City/State/Zipcode | Phone Number | | Organization | | | | + + + + + | [facility] | [address] | [place] [address] | | | [place]RE, [place]ALIA | [address] | | | + + + + + VITAMIN B1, WHOLE BLOOD (08/19/2019 3:54 PM PDT) + + + + + + | Component | Value | Ref Range | Performed | Pathologist | | | | | At | Signature | + + + + + + | VITAMIN B1, | 76Comment: INTERPRETIVE | 70 - 180 nmol/L | [facility] | | | WHOLE | INFORMATION: Vitamin B1, | | REG UNIV | | | BLOOD | Whole Blood This assay | | PTH - INT[facility] | | | | measures the | | | | | | concentration of | | | | | | thiamine diphosphate | | | | | | (TDP), the primary | | | | | | active form of vitamin | | | | | | B1. Approximately 90 | | | | | | percent of vitamin B1 | | | | | | present in whole blood | | | | | | is TDP. Thiamine and | | | | | | thiamine monophosphate, | | | | | | which comprise the | | | | | | remaining 10 percent, | | | | | | are not measured. Test | | | | | | developed and | | | | | | characteristics | | | | | | determined by [facility] | | | | | | [facility]. See | | | | | | Compliance Statement B: | | | | | | [employer]/CSPerformed | | | | | | by [address] | | | | | | [facility],[place] | | | | | | [address] | | | | | | [phone].[employer]. | | | | | | com, Jeffrey Armendariz MD, | | | | | | Lab. Director | | | | + + + + + + + + | Specimen | + + | Blood - Blood | | (substance) | + + + + + + + | Performing | Address | City/State/Zipcode | Phone Number | | Organization | | | | + + + + + | [facility] | [address] | [place], [place] | | | UNIV PTH - INT[facility] | | [address] | | + + + + + VITAMIN A, SERUM (08/19/2019 3:54 PM PDT) + + + + + + | Component | Value | Ref Range | Performed | Pathologist | | | | | At | Signature | + + + + + + | INTERPRETAT | NormalComment: Test | | [facility] | | | ION (VIT A) | developed and | | REG UNIV | | | | characteristics | | PTH - [facility] | | | | determined by [facility] | | | | | | [facility]. See | | | | | | Compliance Statement B: | | | | | | [employer]/CSPerformed | | | | | | by [address] | | | | | | [place], [place] | | | | | | [address] | | | | | | [phone].[employer]. | | | | | | Jeffrey macias MD, | | | | | | Lab. Director | | | | + + + + + + | RETINOL | 0.36 | 0.30 - 1.20 | [facility] | | | (VITAMIN A) | | mg/L | [facility] UN[facility] | | | | | | PTH - [facility] | | + + + + + + | RETINYL | <0.02 | 0.00 - 0.10 | [facility] | | | PALMATATE | | mg/L | [facility] UN[facility] | | | | | | PTH - [facility] | | + + + + + + + + | Specimen | + + | Blood - Blood | | (substance) | + + + + + + + | Performing | Address | City/State/Zipcode | Phone Number | | Organization | | | | + + + + + | [facility] | [address] | [place], [place] | | | UNIV PTH - [facility] | | [address] | | + + + + + PTH, SERUM (08/19/2019 3:54 PM PDT) + +--------+ + + + | Component | Value | Ref Range | Performed | Pathologist | | | | | At | Signature | + +--------+ + + + | PTH, SERUM | 99 (H) | 18 - 88 pg/mL | [facility] | | | | | | LABORATORY | | | | | | SERVICES, | | | | | | [facility] | | [facility] | | + +--------+ + + + + + | Specimen | + + | Blood - Blood | | (substance) | + + + + + + + | Performing | Address | City/State/Zipcode | Phone Number | | Organization | | | | + + + + + | [facility] | [address] | [place] [address] | | | SERVICES, [facility] | | | | [facility] | | | | + + + + + METHYLMALONIC ACID, SERUM (08/19/2019 3:54 PM PDT) + + + + + + | Component | Value | Ref Range | Performed | Pathologist | | | | | At | Signature | + + + + + + | METHYLMALON | 0.23Comment: | 0.00 - 0.40 | [facility] | | | IC ACID | INTERPRETIVE | umol/L | [facility] | | | | INFORMATION: MMA | | PTH - [facility] | | | | Serum/Plasma, | | | | | | | | | | | | Vitamin B12 Status | | | | | | Test developed and | | | | | | characteristics | | | | | | determined by [facility] | | | | | | [facility]. See | | | | | | Compliance Statement B: | | | | | | [employer]/CSPerformed | | | | | | by [address] | | | | | | [facility],[place] | | | | | | [address] | | | | | | [phone].[employer]. | | | | | | [facility] MD, | | | | | | Lab. Director | | | | + + + + + + + + | Specimen | + + | Blood - Blood | | (substance) | + + + + + + + | Performing | Address | City/State/Zipcode | Phone Number | | Organization | | | | + + + + + | [facility] | [address] | [place], [place] | | | UNIV P[facility] - [facility] | | [address] | | + + + + + IRON AND TIBC (08/19/2019 3:54 PM PDT) + +-------+ + + + | Component | Value | Ref Range | Performed | Pathologist | | | | | At | Signature | + +-------+ + + + | IRON | 74 | 30 - 160 ug/dL | [facility] | | | | | | LABORATORY | | | | | | SERVICES, | | | | | | CORE | | + +-------+ + + + | IRON BIND | 295 | 240 - 450 ug/dL | [facility] | | | CAP | | | LABORATORY | | | | | | SERVICES, | | | | | | CORE | | + +-------+ + + + | % | 25 | 20 - 50 % | [facility] | | | SATURATION | | | LABORATORY | | | TRANSFERRIN | | | SERVICES, | | | , | | | CORE | | + +-------+ + + + + + | Specimen | + + | Blood - Blood | | (substance) | + + + + + + + | Performing | Address | City/State/Zipcode | Phone Number | | Organization | | | | + + + + + | [facility] | [address] | [place] [address] | | | SERVICES, CORE | [address] | | | + + + + + INR (08/19/2019 3:54 PM PDT) + +-------+ + + + | Component | Value | Ref Range | Performed | Pathologist | | | | | At | Signature | + +-------+ + + + | INR | 1.11 | 0.90 - 1.20 INR | [facility] | | | | | | LABORATORY | | | | | | SERVICES, | | | | | | CORE | | + +-------+ + + + + + | Specimen | + + | Blood - Blood | | (substance) | + + + + + | Narrative | Performed At | + + + | INR Therapeutic ranges for full anticoagulation: INR for Venous | [facility] | | Thromboembolism (2.0 - 3.0) INR INR for most | LABORATORY | | patients with mech. valves (2.5 - 3.5) INR | SERVICES, CORE | + + + + + + + + | Performing | Address | City/State/Zipcode | Phone Number | | Organization | | | | + + + + + | [facility] | [address] | [place] [address] | | | SERVICES, CORE | [address] | | | + + + + + HOMOCYSTEINE TOTAL, PLASMA (08/19/2019 3:54 PM PDT) + + + + + + | Component | Value | Ref Range | Performed | Pathologist | | | | | At | Signature | + + + + + + | HOMOCYSTEIN | 11.8 (H) | 3.5 - 10.4 | [facility] | | | E,PLASMA,TO | | umol/L | LABORATORY | | | [place] | | | SERVICES, | | | | | | SPECIAL IMM | | | | | | + COAG | | + + + + + + + + | Specimen | + + | Blood - Blood | | (substance) | + + + + + + + | Performing | Address | City/State/Zipcode | Phone Number | | Organization | | | | + + + + + | [facility] | [address] | [place] [address] | | | SERVICES, SPECIAL | [address] | | | | IMM + COAG | | | | + + + + + HEMOGLOBIN A1C, BLOOD (08/19/2019 3:54 PM PDT) + + + + + + | Component | Value | Ref Range | Performed | Pathologist | | | | | At | Signature | + + + + + + | HEMOGLOBIN | 5.2Comment: Hgb A1C | <5.7 % | [facility] | | | A1C | Interpretive | | LABORATORY | | | | Information: | | SERVICES, | | | | <5.7% - Normal | | SPECIAL IMM | | | | 5.7-6.4% - Consistent | | + COAG | | | | with pre-diabetes | | | | | | >6.4% - Consistent | | | | | | with diabetes | | | | | | | | | | + + + + + + | ESTIMATED | 103Comment: The | mg/dL | [facility] | | | AVERAGE | estimated Average | | LABORATORY | | | GLUCOSE | Glucose (eAG) number is | | SERVICES, | | | | calculated from the | | SPECIAL IMM | | | | result of the A1c test. | | + COAG | | | | The eAG shows what the | | | | | | average blood glucose | | | | | | was over the previous 2 | | | | | | to 3 months. | | | | + + + + + + + + | Specimen | + + | Blood - Blood | | (substance) | + + + + + | Narrative | Performed At | + + + | Alternate forms of testing such as fructosamine should be | [facility] | | considered for monitoring shelter glycemic control in patients with: | LABORATORY | | Increased red cell turnover, certain hemoglobinopathies (e.g., HbS, | SERVICES, | | HbE, HbC and thalassemia syndromes), anemias, blood loss, chronic | SPECIAL IMM + | | liver disease and hemochromatosis (artefactually low HbA1c); iron | COAG | | deficiency anemia (artefactually high HbA1c due to enhanced glycation | | | of hemoglobin). | | + + + + + + + + | Performing | Address | City/State/Zipcode | Phone Number | | Organization | | | | + + + + + | [facility] | [address] | [place] [address] | | | SERVICES, SPECIAL | [address] | | | | IMM + COAG | | | | + + + + + FERRITIN (08/19/2019 3:54 PM PDT) + + + + + + | Component | Value | Ref Range | Performed | Pathologist | | | | | At | Signature | + + + + + + | FERRITIN | 93Comment: Male and | 50 - 200 ng/mL | [facility] | | | | Female >18 years: | | LABORATORY | | | | <20 ng/mL: | | SERVICES, | | | | Consistant with iron | | CORE | | | | deficiency 21-50 | | | | | | ng/mL: Possible | | | | | | iron deficiency 51-99 | | | | | | ng/mL: Iron | | | | | | deficiency unlikely | | | | | | unless inflammation | | | | | | present or | | | | | | patient | | | | | | >65 years of age | | | | | | 100-200 ng/mL: | | | | | | Normal, not consistent | | | | | | with iron deficiency | | | | | | >200 ng/mL: If | | | | | | transferrin saturation | | | | | | >45%, consider | | | | | | hemochromatosis | | | | + + + + + + + + | Specimen | + + | Blood - Blood | | (substance) | + + + + + + + | Performing | Address | City/State/Zipcode | Phone Number | | Organization | | | | + + + + + | [facility] | [address] | [place] [address] | | | DEANDRE, ROSALIA | [address] | | | + + + + + COPPER, SERUM (08/19/2019 3:54 PM PDT) + + + + + + | Component | Value | Ref Range | Performed | Pathologist | | | | | At | Signature | + + + + + + | COPPER | 122.3Comment: | 80.0 - 155.0 | [facility] | | | SERUM | INTERPRETIVE | ug/dL | REG UNIV | | | | INFORMATION: Copper, | | PTH - [facility] | | | | Serum or Plasma Elevated | | | | | | results may be due to | | | | | | skin or | | | | | | collection-related | | | | | | contamination, including | | | | | | the use of a | | | | | | noncertified metal-free | | | | | | collection/transport | | | | | | tube. If contamination | | | | | | concerns exist due to | | | | | | elevated levels of | | | | | | serum/plasma copper, | | | | | | confirmation with a | | | | | | second specimen | | | | | | collected in a certified | | | | | | metal-free tube is | | | | | | recommended. Serum | | | | | | copper may be elevated | | | | | | with infection, | | | | | | inflammation, stress, | | | | | | and copper | | | | | | supplementation. In | | | | | | females, elevated copper | | | | | | may also be caused by | | | | | | oral contraceptives and | | | | | | | | | | | | (concentrations may be | | | | | | elevated up to 3 times | | | | | | normal during the third | | | | | | trimester). Test | | | | | | developed and | | | | | | characteristics | | | | | | determined by [facility] | | | | | | Laboratories. See | | | | | | Compliance Statement B: | | | | | | [employer]/CSPerformed | | | | | | by [address],[address] | | | | | | [facility] | | | | | | [id number] | | | | | | [phone][employer]. | | | | | | com, Jeffery Armendariz MD, | | | | | | Lab. Director | | | | + + + + + + + + | Specimen | + + | Blood - Blood | | (substance) | + + + + + + + | Performing | Address | City/State/Zipcode | Phone Number | | Organization | | | | + + + + + | [facility] | [address] | [place], [place] | | | UNIV PTH - INTFC | | [id number] | | + + + + + COMPLETE METABOLIC SET (NA,K,CL,CO2,BUN,CREAT,GLUC,CA,AST,ALT,BILI TOTAL,ALK PHOS,ALB,PROT TOTAL) (08/19/2019 3:54 PM PDT) + +---------+ + + + | Component | Value | Ref Range | Performed | Pathologist | | | | | At | Signature | + +---------+ + + + | GLUCOSE, | 87 | 70 - 99 mg/dL | [facility] | | | PLASMA | | | LABORATORY | | | (LAB) | | | SERVICES, | | | | | | [facility] | | | | | [facility] + | | | | | | HEALING | | + +---------+ + + + | BUN, PLASMA | 13 | 6 - 20 mg/dL | [facility] | | | (LAB) | | | LABORATORY | | | | | | SERVICES, | | | | | | [facility] + | | | | | | [facility]AL[facility] | | + +---------+ + + + | CREATININE | 0.83 | 0.60 - 1.10 | [facility] | | | PLASMA | | mg/dL | LABORATORY | | | (LAB) | | | SERVICES, | | | | | | [facility] | [facility] + | | | | | | [facility]ALING | | + +---------+ + + + | EGFR | >60 | >60 mL/min | [facility] | | | - | | | LABORATORY | | | DOMINICAN | | | SERVICES, | | | | | | [facility] | [facility] + | | | | | | [facility]ALING | | + +---------+ + + + | EGFR NON | >60 | >60 mL/min | [facility] | | | -MADALYN | | | LABORATORY | | | RICAN | | | SERVICES, | | | | | | [facility] | [facility] + | | | | | | [facility]ALING | | + +---------+ + + + | SODIUM, | 143 | 136 - 145 | [facility] | | | PLASMA | | mmol/L | LABORATORY | | | (LAB) | | | SERVICES, | | | | | | [facility] | [facility] + | | | | | | [facility]ALING | | + +---------+ + + + | POTASSIUM, | 3.9 | 3.4 - 5.0 | [facility] | | | PLASMA | | mmol/L | LABORATORY | | | (LAB) | | | SERVICES, | | | | | | [facility] | [facility] + | | | | | | [facility]ALING | | + +---------+ + + + | CHLORIDE, | 108 | 97 - 108 mmol/L | [facility] | | | PLASMA | | | LABORATORY | | | (LAB) | | | SERVICES, | | | | | | [facility] + | | | | | | [facility]ALING | | + +---------+ + + + | TOTAL CO2, | 28 | 21 - 32 mmol/L | [facility] | | | PLASMA | | | LABORATORY | | | (LAB) | | | SERVICES, | | | | | | [facility] | [facility] + | | | | | | [facility]ALING | | + +---------+ + + + | CALCIUM, | 8.8 | 8.6 - 10.2 | [facility] | | | PLASMA | | mg/dL | LABORATORY | | | (LAB) | | | SERVICES, | | | | | | [facility] | | [facility] | [facility] + | | | | | | [facility]ALING | | + +---------+ + + + | CALCIUM(ALB | 9.3 | 8.6 - 10.2 | [facility] | | | CORRECTED) | | mg/dL | LABORATORY | | | | | | SERVICES, | | | | | | [facility] | [facility] + | | | | | | [facility]ALING | | + +---------+ + + + | BILIRUBIN | 0.4 | 0.3 - 1.2 mg/dL | [facility] | | | TOTAL | | | LABORATORY | | | | | | SERVICES, | | | | | | [facility] | [facility] + | | | | | | HEALING | | + +---------+ + + + | TOTAL | 6.7 | 6.4 - 8.2 g/dL | [facility] | | | PROTEIN, | | | LABORATORY | | | PLASMA | | | SERVICES, | | | (LAB) | | | [facility] | | | | [facility] + | | | | | | HEALING | | + +---------+ + + + | ALBUMIN, | 3.4 (L) | 3.5 - 4.7 g/dL | [facility] | | | PLASMA | | | LABORATORY | | | (LAB) | | | SERVICES, | | | | | | [facility] | [facility] | [facility] + | | | | | | [facility]ALING | | + +---------+ + + + | ALK PHOS | 72 | 53 - 141 U/L | [facility] | | | | | | LABORATORY | | | | | | SERVICES, | | | | | | [facility] | [facility] + | | | | | | [facility]ALING | | + +---------+ + + + | AST(SGOT) | 15 | <=41 U/L | [facility] | | | | | | LABORATORY | | | | | | SERVICES, | | | | | | [facility] | [facility] + | | | | | | [facility]ALING | | + +---------+ + + + | ALT (SGPT) | 19 | <=60 U/L | [facility] | | | | | | LABORATORY | | | | | | SERVICES, | | | | | | [facility] | [facility] + | | | | | | [facility]ALING | | + +---------+ + + + | ANION GAP | 7 | 4 - 11 mmol/L | [facility] | | | | | | LABORATORY | | | | | | SERVICES, | | | | | | [facility] | [facility] + | | | | | | [facility]ALING | | + +---------+ + + + | ANION | 8 | 4 - 11 mmol/L | [facility] | | | GAP(ALB | | | LABORATORY | | | CORRECTED) | | | SERVICES, | | | | | | [facility] | | [facility] | | [facility] + | | | | | | [facility]ALING | | + +---------+ + + + | POTASSIUM | No Hemo | | [facility] | | | CMNT | | | LABORATORY | | | | | | SERVICES, | | | | | | [facility] | | | | [facility] + | | | | | | HEALING | | + +---------+ + + + | BILI T CMNT | No Hemo | | [facility] | | | | | | LABORATORY | | | | | | SERVICES, | | | | | | [facility] | | | [facility] + | | | | | | HEALING | | + +---------+ + + + | AST CMNT | No Hemo | | [facility] | | | | | | LABORATORY | | | | | | SERVICES, | | | | | | [facility] | [facility] + | | | | | | [facility]ALING | | + +---------+ + + + + + | Specimen | + + | Blood - Blood | | (substance) | + + + + + | Narrative | Performed At | + + + | GFR is estimated using the MDRD equation recommended by the National | [facility] | | Kidney Disease Education Program. Estimated GFR Interpretive | LABORATORY | | Information: <60 mL/min/1.73 sq m Chronic Kidney | SERVICES, | | Disease <15 mL/min/1.73 sq m Kidney Failure | [facility] FOR | | Estimated GFR greater than 60 mL/min/1.73 sq m is of limited clinical | HEALTH + | | value. The MDRD equation is not valid in the following situations: | HEALING | | - Patients under 18 years of age - Severe malnutrition or obesity | | | - Vegetarian diet - Rapidly changing kidney function - Amputees, | | | paraplegics, or other muscle-wasting diseases | | + + + + + + + + | Performing | Address | City/State/Zipcode | Phone Number | | Organization | | | | + + + + + | [facility] | [address] | [place] [address] | | | [facility] | | | | | HEALTH + HEALING | | | | + + + + + documented in this encounter Visit Diagnoses Not on filedocumented in this encounter"
--- OUTSIDE RECORDS SUMMARY | ~2020-03-22 | XMS | Encounter Summary ---
Demographics + + + | Address | [address] | | | [place] [address] | + + + | Home Phone [...] Author + + + | Author | [facility] | + + + | Organization | [facility] | + + + | Address | Unknown | + + + | Phone | Unavailable | + + + Support + + +---------+ + | Name | Relationship | Address | Phone | + + +---------+ + | Marifer Valentin | ECON | Unknown | | + + +---------+ + Care Team Providers + +------+ + | Care Reclamation Worker Name | Role | Phone | + +------+ + | Stephanie Washington PA | PCP | | + +------+ + Reason for Visit + + + | Reason | Comments | + + + | New Patient Visit | | + + + Intake Referral (Routine) +--------+--------+ + + + + | Status | Reason | Specialty | Diagnoses / | Referred By | Referred To | | | | | Procedures | Contact | Contact | +--------+--------+ + + + + | Closed | | Surgery | Diagnoses | Nani Washington Foregut | | | | | Hernia, | Stephanie Lam, | [facility] [address] | | | | | hiatal | [place] [address] | | | | | | [address] | Mailcode: | | | | | | [place], | [facility] | | | | | | [place] [address] | [facility] and | | | | | | Phone: | Healing, | | | | | | [phone] | [address] | | | | | | Fax: | [place], [place] | | | | | | [phone] | [address] | | | | | | | Phone: | | | | | | | [phone] | | | | | | | Fax: | | | | | | | [phone] | +--------+--------+ + + + + Encounter Details +--------+---------+ + + + | Date | Type | Department | Care Team | Description | +--------+---------+ + + + | 08/19/ | Office | [facility] | Emily Joyner, | Severe obesity (HCC) | | 2019 | Visit | Therapy Services at | PT,DPT [address] | (Primary Dx) | | | | [facility] | [address] [facility] [place] | | | | | [address] | [address] | | | | | Mailcode: [facility]P | | | | | | [facility] | | | | | | and [place], | | | | | | [facility] | | | | | | Floor [place], [place] | | | | | | [address] | | | | | | [phone] | | | +--------+---------+ + + + [...] documented as of this encounter Progress Notes Emily Joyner, PT,DPT - 08/19/2019 2:30 PM PDT Insurance: Payor: MEDICARE / Plan: MEDICARE A & B / Product Type: Medicare / Medicare: A Physician/NPP co-signature on a note authorizes the therapy plan of care for t he certification period documented. [facility] PHYSICAL THERAPY EVALUATION Past Medical History: Diagnosis Date Alcoholism (HCC) Anemia Anxiety Basal cell carcinoma Bilateral chronic knee pain Carpal tunnel syndrome Depression Fibroid GERD (gastroesophageal reflux disease) Hypertension Incisional hernia Metabolic syndrome Morbid obesity (HCC) Obstructive sleep apnea Past Surgical History Procedure Laterality Date Carpal tunnel release 2006 right wrist, 2008 left wrist Salpingo-oophorectomy Left 2004 with cauterization of endometrial implant Excision of malignant lesion of skin 11/17/2015 External fixation of right tibia and fibula Right s/p removal Cardiac catheterization 01/02/2015 CONCLUSIONS: Normal angio and normal coronaries Egd (esophagogastroduodenoscopy) 07/16/2018 Left knee surgery Current Outpatient Medications: aspirin chewable 81 mg oral tablet,chewable, Chew and swall ow 81 mg once daily at bedtime., Disp: , Rfl: cholecalciferol (vitamin D3) (VITAMIN D3 ORAL), Take by mouth., Disp: , Rfl: enalapril 20 mg oral tablet, Take 20 mg by mouth two times daily., Disp: , Rfl: omeprazole 20 mg oral capsule,delayed release(DR/EC), Take 40 mg by mouth once daily in the morning. Administer 30 to 60 minutes before meals , Disp: , Rfl: simvastatin 20 mg oral tablet, Take 20 mg by mouth once daily in the evening., Disp: , Rfl: venlafaxine 75 mg oral tablet, Take 75 mg by mouth once daily., Disp: , Rfl: Previous physical therapy treatment or alternative treatments for this condition includes: diet and exercise. Results of previous treatment: Somewhat effective. Concurrent medical treatment: Bariatric surgical prorgam. SUBJECTIVE: 08/19/2019 History of Presenting Problems: Tiffanie is a 69 y.o. person here for pre-op appointment for bariatric surgery. Per patient, has had 2 false positive nuclear stress tests so had further workout showing no problems with her heart. Patient also has a hiatal hernia which she need s to lose weight prior to surgery for Activity limitations and participation restrictions: walking long distances due to knee rekha n Patient's Activity and participation goal(s) with therapy: improved self care, walk more, s tand more Current functional Status: Pain Reported in location of bilateral knees and right shoulder Pain is a 2 on a scale of 0-10, at best 0/10, and at worst 2/10. The following activities aggravate the pain: standing and walking. The pain is relieved by rest and medication. Sleep: Patient's sleep is not interrupted by the pain. Currently sleeps 11 hours per night and wakes rested. Current Physical Activity: not much Barriers to exercise: knee pain, and being in her head Equipment at home: some bands Gym access: yes, also has a pool at the gym Home Set Up: steps to get in Assistance for ADLs/IADLs: independent Social support: daughter and grand daughter Stress level: not tested Patient's current occupational status: retired. Work demands: 0 Anxieties or concerns about therapy: 0 OBJECTIVE EXAM: Anthropometrics: Weight - 286 lbs; Height - 5'6"; BMI: 46.16 Posture: rounded shoulders ROM: functional- left tibia externally rotated and excessive toe out of left foot during ga it Strength Screen: Muscle Group Left 08/19/2019 Right 08/19/2019 Shoulder Elevation 5/5 5/5 Shoulder Abduction 5/5 5/5 Elbow Flexion 5/5 5/5 Elbow Extension 5/5 5/5 Hip Flexion (L2-3) 5/5 5/5 Knee Extension (L3-4) 5/5 5/5 Knee Flexion (L1-2) 5/5 5/5 Dorsiflexors (L4-5) 5/5 5/5 Note 5/5=normal strength *= pain with motion BOLD= concerning Outcome Measures: Outcome measure Interpretation 69 y.o. Score 08/19/2019 30 sec sit to stand 69 y.o. Normal values; 61 y/o = 15 reps 9 reps, without use of UEs 6 min walk test 69 y.o. 60-69 yo: female 1880' Significant change is ~ > 170 ft 660' Not taken 35% Predicted distance TREATMENT TODAY: Evaluation, Therapeutic Exercise Treatment: Established home program with handout as listed below: Treatment: Patient education on >150 minutes of physical activity in a week. Broken into 10 minute se ssions for a total of 30 minutes a day Patient education on using Rate of Perceived Exertion scale Patient education on abdominal precautions Patient education on Log roll technique Bariatric handout given with multiple exercises listed. Patient is planning on getting a tr adalid when she joins the gym and is aware of strength training goals with the bariatric surg dustin program. Instructed to start with 2x8 of 8 strength exercises 3x/wk, gradually adding mo re sets and reps Intervention Date Comments Progressive walking program 08/19/2019 General light strengthening/stretching exercises 08/19/2019 Logroll instruction 08/19/2019 Abdominal precautions instruction 08/19/2019 Motivational interviewing for goal planning 08/19/2019 ASSESSMENT: Patient is a 69 y.o. person referred to PT for prehabilitation evaluation prior to Bariatric abdominal surgery. Symptoms are limiting patient with daily and functional activities including walking around the grocery store, self care, standing longer periods of time. Patient exam findings include decreased functional strength, decreased activity tolerance a nd physical deconditioning. Pt scored at 35% predicted distance in 6 Minute Walk Test as compared to age and gender mat ched normative values, indicating deficits in aerobic endurance. Patient has been provided instruction on appropriate exercise and pain control strategies t o increase aerobic PA to prepare for major bariatric abdominal surgery. Anticipate adherence to home program will be fair to good. Patient requires services that can be safely and effectively performed only by a qualified therapist to address the following problems and achieve the following goals: Goals: recheck 10/18/2019 to 11/17/2019 Goal: set 08/19/2019 Status Pt will show improvement in 30-second sit to stand to age and gender appropriate level Pt will show improvement in 6 minute walk test by at least 170 ft, representing clinical an d functional improvement in endurance Pt will report improvement in PSFS by at least 3 points in individual item or 2 points in a verage, indicating clinical improvement in function. Pt will participate in 30 minutes of aerobic activity, 5 days per week Pt will perform strength training 3 times per week Plan: D/c to home and gym program, instructed to follow up with PT closer to home as needed See topics above to identify problem areas and goals Personal factors/Comorbidities: Cardiopulmonary and Height/Weight BMI Communication: No n oted deficits, Psychosocial: Elderly (over 65), High 3+ Body structures & functions, Activity limitations, participation restrictions: Musculoskele gardenia , Balance and Gait/Locomotion Recreational sport Moderate - 3 or more Stability of condition: Pre-op status with uncertain recovery course Moderate - Evolving Clinical decision making: Pre-op status with uncertain recovery course Moderate - Moderate complexity Complexity: Moderate - 62868 The patient requires services that can be safely and effectively performed only by a qualif ied therapist to address the aforementioned and highlighted problems and goals. Goals discussed and agreed upon with patient and/or family. Individual cultural and social needs addressed. Rehab Potential: Good, if Tiffanie carries through with home exercise program. This note is to serve as the discharge summary if the patient fails to attend further Physi efrem Therapy appointments or contact the therapist regarding any change in their status. Emily Joyner, PT,DPT [facility] PHYSICAL THERAPY SERVICES AT [facility] Scheduled Appointment time: 2:30 PM The patient was seen for a total of 45 minutes of treatment time. 45 minutes was in direct contact care as described above and on completed flow sheets. Treatment Interventions duration in minutes: Procedure:Physical Therapy Evaluation and Ther apeutic Activities 15 min Authorization information for first visit and progress reports Procedure Codes: Re-evaluation 08540, Therapeutic Exercise 61356, Manual Therapy 44232, Th erapeutic Activities 71529, Neuromuscular Reeducation 56836, Gait Training 01395 and Self-ca re ADL 89802 Minutes per session: 45 Total number of visits: 1 visit only Frequency: 1 visit only Duration: n/a (must exceed or match Medicare service period reques t) Service period from: 08/19/2019 to: 08/19/2019 (Medicare must match duration or be no gre ater than 90 days if proposed duration is greater than 3 months) Start of care: 08/19/2019 Referral information Authorizing Provider: ANGELI BARRERA [[id number]] Onset/Referral Date: 07/08/19 Primary/Referral Diagnosis: E66.01 Severe obesity (HCC) Next progress report 10/18/2019 Insurance: Payor: MEDICARE / Plan: MEDICARE A & B / Product Type: Medicare / Number visits authorized: 1 Number visits used: 1 Outcome Measure 08/19/2019 Activity 1 (3 point increase is significant for any one activity): 3 (Walk) Activity 2: 1 (Wipe) Activity 3: 4 (Stand) . documented in this encounter Plan of Treatment Not on filedocumented as of this encounter Procedures + +--------+ + + + | Procedure Name | Priori | Date/Time | Associated Diagnosis | Comments | | | ty | | | | + +--------+ + + + | OK THERAPEUTIC | Routin | 08/19/2019 | Severe obesity | | | ACTIVITIES | e | 3:39 PM | ([facility]) | | | | | PDT | | | + +--------+ + + + documented in this encounter Visit Diagnoses + + | Diagnosis | + + | Severe obesity (HCC) - Primary Morbid obesity | + + documented in this encounter
--- OUTSIDE RECORDS SUMMARY | ~2020-03-22 | XMS | Encounter Summary ---
Demographics + + + | Address | [address] | | | [place] [address] | + + + | Home Phone | | + + + | Preferred Language | Unknown | + + + | Marital Status | Single | + + + | Restorationist Affiliation | Unknown | + + + | Race | White | + + + | Ethnic Group | Not or | + + + Author + + + | Author | [facility] | + + + | Organization | [facility] | + + + | Address | Unknown | + + + | Phone | Unavailable | + + + Support + + +---------+ + | Name | Relationship | Address | Phone | + + +---------+ + | Marifer Valentin | ECON | Unknown | | + + +---------+ + Care Team Providers + +------+ + | Care Appeals Examiner Name | Role | Phone | [...] Description | +--------+---------+ + + + | 10/25/ | Office | [facility] | | Morbid obesity with | | 2019 | Visit | Center at [facility] [address] | | BMI of 45.0-49.9, | | | | [address] | | adult (HCC) (Primary | | | | Mailcode: Center | | Dx) | | | | for Health and | | | | | | [facility] [address] [facility], [facility] [address] | | | | | | [place], [place] | | | | | | [address] | | | | | | [phone] | | | +--------+---------+ + + + [...] + + + + | Weight | 127.3 kg (280 lb | 10/25/2019 3:15 PM | | | | 11.2 oz) | PST | | + + + + + | Height | - | - | | + + + + + | Body Mass Index | 45.31 | 08/19/2019 12:56 PM | | | | | PDT | | + + + + + documented in this encounter Progress Notes Shoshana Paniagua RD - 10/25/2019 2:00 PM PSTFormatting of this note might be different fr om the original. Referring Provider: [facility], Pre-Bariatric Surgery Class Pre-Surgery Nutrition Class # 2 prior to having Serafin-En-Y gastric bypass surgery or Sleeve Gastrectomy. Documented Time of Class: 60 minutes hfgu-dg-fjou with patient OBJECTIVE: Ht Readings from Last 1 Encounters: 08/19/19 1.676 m (5' 6") Wt Readings from Last 1 Encounters: 10/25/19 127.3 kg (280 lb 11.2 oz) Body mass index is 45.31 kg/m. Teaching Methods: Visual and Verbal presentation with Bariatric notebook and Visual Aids. Class content included: Review of Post-Surgery Nutrition Recommendations: ? Aim for at least 64 ounces of fluids throughout the day (no calories, caffeine or carbona tion) ? Separate fluids from meals- nothing to drink during and for 30 minutes after eating ? Include protein at meals (14-20 grams) and at snacks (~7 grams). ? Goal is 60-80 grams of protein/day ? Post-surgical diet progression including Clear Liquids, Full Liquids, Soft Foods and Regu lar Textures ? Review of post-op micronutrient needs & supplement recommendations, including example addis edules Assessment: Pt remained attentive throughout the class and/or participated by asking questi ons or sharing information. Shoshana Paniagua, MS, RDN, CSOWM, LD, CDE [facility] Bariatrics [phone] documented in this e ncounter Plan of Treatment Not on filedocumented as of this encounter Visit Diagnoses + + | Diagnosis | + + | Morbid obesity with BMI of 45.0-49.9, adult (HCC) - Primary | + + documented in this encounter
--- OUTSIDE RECORDS SUMMARY | ~2020-03-22 | XMS | Encounter Summary ---
Demographics + + + | Address | [address] | | | [place] [address] | + + + | Home Phone | | + + + | Preferred Language | Unknown | + + + | Marital Status | | + + + | Lutheran Affiliation | 1027 | + + + | Race | Unknown | + + + | Ethnic Group | Unknown | + + + Author + + + | Author | [facility] | | | and [place] | + + + | Organization | [facility] | | [...] Team Providers + +------+ + | Care Automobile Designer Name | Role | Phone | + +------+ + | Marita Albrecht MD | PCP | | + +------+ + Encounter Details +--------+ + + + + | Date | Type | Department | Care Team | Description | +--------+ + + + + | 02/22/ | Hospital | [facility] | Peng Fink MD | | | 2009 | Encounter | [facility] | [address] | | | | | [address] | [address], | | | | | [place], | [place] [address] | | | | | [place] [address] | | | | | | [phone] | | | +--------+ + + + [...] | + +--------+ + + + | LIPID PANEL | Routin | 02/22/2010 | | Results for this | | | e | 7:58 AM | | procedure are in the | | | | PDT | | results section. | + +--------+ + + + | COMPREHENSIVE | Routin | 02/22/2010 | | Results for this | | METABOLIC PANEL | e | 7:58 AM | | procedure are in the | | | | PDT | | results section. | + +--------+ + + + documented in this encounter Results Comprehensive metabolic panel (02/22/2010 7:58 AM PDT) + + + + + + | Component | Value | Ref Range | Performed | Pathologist | | | | | At | Signature | + + + + + + | Na | 142 | 135 - 145 | [facility] | | | | | mmol/L | [place] | | + + + + + + | K | 4.4 | 3.5 - 5.3 | [facility] | | | | | mmol/L | [place] | | + + + + + + | Cl | 113 (H) | 98 - 109 mmol/L | [facility] | | | | | | [place] | | + + + + + + | CO2 | 25 | 23 - 32 mmol/L | [facility] | | | | | | [place] | | + + + + + + | Calcium | 8.9 | 8.5 - 10.5 | [facility] | | | | | mg/dL | [place] | | + + + + + + | Anion Gap | 4 (L) | 5 - 16 mmol/L | [facility] | | | | | | [place] | | + + + + + + | Albumin | 3.5 | 3.5 - 5.0 g/dL | [facility] | | | | | | [place] | | + + + + + + | BUN | 10 | 7 - 23 mg/dL | [facility] | | | | | | [place] | | + + + + + + | Creatinine | 0.88 | 0.44 - 1.03 | [facility] | | | | | mg/dL | [place] | | + + + + + + | Glucose | 101 | 65 - 114 mg/dL | [facility] | | | | | | [place] | | + + + + + + | Total | 5.7 (L) | 6.3 - 8.0 g/dL | [facility] | | | Protein | | | [place] | | + + + + + + | Globulin | 2.2 | 2.0 - 4.0 g/dL | [facility] | | | | | | [place] | | + + + + + + | Albumin/Corina | 1.6 | 0.7 - 2.2 Ratio | [facility] | | | bulin Ratio | | | [place] | | + + + + + + | Alkaline | 49 | 38 - 110 U/L | [facility] | | | Phosphatase | | | [place] | | + + + + + + | ALT | 17 | 5 - 50 U/L | [facility] | | | | | | [place] | | + + + + + + | AST | 24 | 5 - 40 U/L | [facility] | | | | | | [place] | | + + + + + + | Bilirubin | 0.5 | 0.1 - 1.5 mg/dL | [facility] | | | Total | | | [place] | | + + + + + + | Estimated | >60Comment: Multiply the | >=61 | [facility] | | | GFR | calculated GFR by 1.21 | mL/min/1.73m2 | [place] | | | | for | | | | | | Americans.Adult GFR | | | | | | Result Intervals | | | | | | measured in mL/min/1.73 | | | | | | m squared: GT 60: Normal | | | | | | renal function. LT or | | | | | | equal to 60: Chronic | | | | | | kidney disease, if | | | | | | confirmed over a 3 month | | | | | | period. A single | | | | | | determination is not | | | | | | considered diagnostic. | | | | | | 30-60 eGFR (Stage 3 | | | | | | CKD): Chronic renal | | | | | | disease. 15-29 eGFR | | | | | | (Stage 4 CKD): Chronic | | | | | | renal disease, consider | | | | | | nephrology consult. LT | | | | | | 15 eGFR (Stage 5 CKD): | | | | | | Renal failure. | | | | + + + + + + + + | Specimen | + + | Blood specimen | | (specimen) - Other | + + + + + + + | Performing | Address | City/State/Zipcode | Phone Number | | Organization | | | | + + + + + | [facility] | [address] | [place] [address] | [phone] | | [facility] | | | | + + + + + | [facility] | | | | | [place] | | | | + + + + + Lipid Panel (02/22/2010 7:58 AM PDT) + + + + + + | Component | Value | Ref Range | Performed | Pathologist | | | | | At | Signature | + + + + + + | Cholesterol | 147 | 0 - 199 mg/dL | [facility] | | | | | | [place] | | + + + + + + | HDL | 57 | 40 - 59 mg/dL | [facility] | | | | | | [place] | | + + + + + + | Triglycerid | 58 | 0 - 149 mg/dL | [facility] | | | es | | | [place] | | + + + + + + | LDL, | 79Comment: Optimal: | 0 - 99 mg/dL | [facility] | | | Calculated | | | [place] | | | | <100 mg/dLNear or | | | | | | above Optimal: 100 - | | | | | | 129 mg/dLBorderline | | | | | | High: 130 - | | | | | | 159 mg/dLHigh: | | | | | | 160 - | | | | | | 189 mg/dLVery High: | | | | | | | | | | | | >190 mg/dL | | | | + + + + + + + + | Specimen | + + | Blood specimen | | (specimen) - Other | + + + + + + + | Performing | Address | City/State/Zipcode | Phone Number | | Organization | | | | + + + + + | [facility] | [address] | [place] [address] | [phone] | | [facility] | | | | + + + + + | [facility] | | | | [place] | | | | + + + + + documented in this encounter Visit Diagnoses Not on filedocumented in this encounter"
--- OUTSIDE RECORDS SUMMARY | ~2020-03-22 | XMS | Encounter Summary ---
Demographics + + + | Address | [address] | | | [place] [address] | + + + | Home Phone | | + + + | Preferred Language | Unknown | + + + | Marital Status | Single | + + + | Temple Affiliation | Unknown | + + + | Race | White | + + + | Ethnic Group | Not or | + + + Author + + + | Author | [facility] | + + + | Organization | [facility] | + + + | Address | Unknown | + + + | Phone | Unavailable | + + + Support + + +---------+ + | Name | Relationship | Address | Phone | + + +---------+ + | Marifer Valentin | ECON | Unknown | | + + +---------+ + Care Team Providers + +------+ + | Care Wood Processing Worker Name | Role | Phone | + +------+ + | Unknown | PCP | Unavailable | + +------+ + Encounter Details +--------+ + + + + | Date | Type | Department | Care Team | Description | +--------+ + + + + | 12/18/ | Hospital | [facility] | | | | 2019 | Encounter | [address] | | | | | | [place], | | | | | | [place] [address] | | | +--------+ + + + [...]
--- OUTSIDE RECORDS SUMMARY | ~2020-03-22 | XMS | Encounter Summary ---
Demographics + + + | Address | [address] | | | [place] [address] | + + + | Home Phone | | + + + | Preferred Language | Unknown | + + + | Marital Status | Single | + + + | Jehovah'S Witness Affiliation | Unknown | + + + | Race | White | + + + | Ethnic Group | Not or | + + + Author + + + | Author | [facility] | + + + | Organization | [facility] | + + + | Address | Unknown | + + + | Phone | Unavailable | + + + Support + + +---------+ + | Name | Relationship | Address | Phone | + + +---------+ + | Marifer Valentin | ECON | Unknown | | + + +---------+ + Care Team Providers + +------+ + | Care Screen Tender Helper Name | Role | Phone | + [...] | | | | | [place], | | | | | | [place] [address] | | | +--------+ + + + [...]
--- OUTSIDE RECORDS SUMMARY | ~2020-03-22 | XMS | Encounter Summary ---
Demographics + + + | Address | [address] | | | [place] [address] | + + + | Home Phone | | + + + | Preferred Language | Unknown | + + + | Marital Status | | + + + | Taoist Affiliation | 1027 | + + + | Race | Unknown | + + + | Ethnic Group | Unknown | + + + Author + + + | Author | [facility] | | | and [place] | + + + | Organization | [facility] | | | [...] Team Providers + +------+ + | Care Billet Header Name | Role | Phone | + +------+ + | Marita Albrecht MD | PCP | | + +------+ + Encounter Details +--------+ + + + + | Date | Type | Department | Care Team | Description | +--------+ + + + + | 02/22/ | Hospital [facility] | Peng Fink MD | | | 2009 | Encounter | [facility] | [address] | | | | | [address] | [address] [place], | | | | | [place], | [place] [address] | | | | | [place] [address] | | | | | | [phone] | | | +--------+ + + + [...] + + | [facility] | [address] | [place] [address] | [phone] | | [facility] | | [...] + + | [facility] | [address] | [place] [address] | [phone] | | [facility] | | | | + + + + + | [facility] | | | | [place] | | | | + + + + + documented in this encounter Visit Diagnoses Not on filedocumented in this encounter"
--- OUTSIDE RECORDS SUMMARY | ~2020-03-22 | XMS | Encounter Summary ---
Demographics + + + | Address | [address] | | | [place] [address] | + + + | Home Phone | | + + + | Preferred Language | Unknown | + + + | Marital Status | | + + + | Shinto Affiliation | 1027 | + + + | Race | Unknown | + + + | Ethnic Group | Unknown | + + + Author + + + | Author | [facility] | | | and [place] | + + + | Organization | [facility] | | | and [place] [...] Team Providers + +------+ + | Care Wheat Washer Name | Role | Phone | + +------+ + | Peng Fink MD | PCP | | + +------+ + Encounter Details +--------+ + + + + | Date | Type | Department | Care Team | Description | +--------+ + + + + | 07/22/ | Hospital | [facility] | Matias Pantoja MD | | | 2006 | Encounter | [facility] | [id number] | | | | | [address] | [address] [place] | | | | | [place], | [address] | | | | | [place] [address] | | | | | | [phone] | | | +--------+ + + + [...]
--- OUTSIDE RECORDS SUMMARY | ~2020-03-22 | XMS | Encounter Summary ---
Demographics + + + | Address | [address] | | | [place] [address] | + + + | Home Phone [...] Organization | [facility] | | | and [...] Team Providers + +------+ + | Care Certified Ophthalmic Surgical Assistant Name | Role | Phone | + [...] | | | | | | | RI CATH | | | | | | | PLACE/CORON | | | | | | | ANGIO, IMG | | | | | | | SUPER/INTERP | | | | | | | ,W LEFT | | | | | | | HEART | | | | | | | VENTRICULOGR | | | | | | | APHY RI PRQ | | | | | | | TRLUML | | | | | | | CORONARY | | | | | | | STENT | | | | | | | W/ANGIO ONE | | | | | | | ART/BRNCH | | | | | | | RI PRQ | | | | | | [...] + + | 01/02/ | Hospital | [facility] | Kiko Jozef | | | 2015 | Encounter | [facility] | MD Janette [address] | | | | | [address] | [place] | | | | | [place] | [address] | | | | | [address] | [phone] | | | | | [phone] | | | +--------+ + + + [...] Physician Discharge Summary Patient ID: Tiffanie Valentin [id number] y.o. 1950 Admit date: 01/02/2015 Discharge date and time: No discharge date for patient encounter. Admitting Physician: Jozef Hoovre MD Discharge Physician: Jozef Hoover MD [facility] Interventional Cardiology [place], [place] Admission Diagnoses: Nonspecific abnormal unspecified cardiovascular [...] present. Please notify your MD and/or your Resort Desk Clerk if any of the follo wing occur: [...] + | Jozef Hoover MD 01/02/2015 9:22 [facility] | [facility] | | [facility] CARDIAC CATHETERIZATION REPORT PATIENT | | | NAME: | | | Tiffanie Valentin DATE OF : | | | 1950 MEDICAL | | | RECORD NUMBER: [id number] | | | DATE OF PROCEDURE: | | | 01/02/2015 FACILITY: | | | [facility] | | | [place], [place] | | | | | | PRIMARY CARE PROVIDER: | | | Peng Fink PRIMARY POWERHOUSE TENDER: | | | Jozef Hoover MD [facility] Interventional Cardiology | | | [place], [place] RETAIL DIRECTOR: | | | Dr. Jozef Hoover MD | | | [facility] PRE-PROCEDURE DIAGNOSIS: | | | abnormal [...] and anesthetized with 1% lidocaine. A 6 indian sheath was | | | placed into the right radial artery A 6 indian pigtail cathether was | | | advanced into the left ventricle, pressures were measured, and left | | | ventriculography was performed. Standard angiography was performed | | | in multiple views using 6 Turkish tiger catheter to engage the | | [...] Jozef Siddiqui | | | MD Kiko [facility] Interventional Cardiology [place] | | | [place] 01/02/2015 9:20 | | + + + [...] | | | | 324 mg, Oral, POWER CUTTING MACHINE OPERATOR, Starting | | 15 7:29 | | [...] | mLs | | | | Intravenous, POWER CUTTING MACHINE OPERATOR, Starting | | AM PDT | | [...]
--- OUTSIDE RECORDS SUMMARY | ~2020-03-22 | XMS | Encounter Summary ---
Demographics + + + | Address | [address] | | | [place] [address] | + + + | Home Phone | | + + + | Preferred Language | Unknown | + + + | Marital Status | | + + + | Jain Affiliation | 1027 | + + + | Race | Unknown | + + + | Ethnic Group | Unknown | + + + Author + + + | Author | [facility] | | | and [place] | + + + | Organization | [facility] | | | and [...] Team Providers + +------+ + | Care Vacuum Cooker Operator Name | Role | Phone | + +------+ + | Peng Fink MD | PCP | | + +------+ + Encounter Details +--------+ + + + + | Date | Type | Department | Care Team | Description | +--------+ + + + + | 07/16/ | [facility] | [facility] | Ezra Green MD | | | 2018 | Encounter | MED CTR MP INTRA OP | [address] | | | | | [address] | [place], [place] | | | | | [place], [place] | [address] | | | | | [address] | [phone] | | | | | [phone] | | | +--------+ + + + [...] You can't be awakened Date Last Reviewed: 08/09/[id number] [employer]. [address] [place] [address], [place] [address]. All righ ts reserved. This information is [...] | | | cell metaplasia or dysplasia. [facility]:smn:C2NR GROSS DESCRIPTION: | | | A. The [...] | | | interpretation were performed by [facility], [address] | | | [place] [address] (Medical Technologist Chief: Jonatan Johns | | | Jareth Hamilton; IA#: [id number]). Diagnostician: Rene Rothman | | | Glenis IRVIN Pathologist Electronically Signed 07/18/2018 | | + + + + +---------+ + + | Performing | Address | City/State/Zipcode | Phone Number | | Organization | | | | + +---------+ + + | [facility] | | | | | [facility] [...]
--- OUTSIDE RECORDS SUMMARY | ~2020-03-22 | XMS | Encounter Summary ---
Demographics + + + | Address | [address] | | | [place] [address] | + + + | Home Phone | | + + + | Preferred Language | Unknown | + + + | Marital Status | | + + + | Christianity Affiliation | 1027 | + + + | Race | Unknown | + + + | Ethnic Group | Unknown | + + + Author + + + | Author | [facility] | | | and [place] | + + + | Organization | [facility] | | | and [place] [...] Team Providers + +------+ + | Care Cpas Name | Role | Phone | + [...] | | | | | | [place] [address] | | | | | | [phone] | | | +--------+ + + + [...]
--- OUTSIDE RECORDS SUMMARY | ~2020-03-22 | XMS | Encounter Summary ---
Demographics + + + | Address | [address] | | | [place] [address] | + + + | Home Phone [...] + + + | Author | [facility] | | | and [place] | + + + | Organization | [facility] | | | and [...] Team Providers + +------+ + | Care Pharmacy Technician Program Director Name | Role | Phone | + +------+ + | Marita Albrecht MD | PCP | | + +------+ + Encounter Details +--------+ + + + + | Date | Type | Department | Care Team | Description | +--------+ + + + + | 11/19/ | Hospital | [facility] | Trey Morrell MD | | | 2007 | Encounter | [facility] | [address] | | | | | [address] | [address] | | | | | [address] | [place] | | | | | [place] | [phone] | | | | | [phone] | | | +--------+ + + + [...]
--- OUTSIDE RECORDS SUMMARY | ~2020-03-22 | XMS | Encounter Summary ---
Demographics + + + | Address | [address] | | | [place] [address] | + + + | Home Phone | | + + + | Preferred Language | Unknown | + + + | Marital Status | | + + + | Uatsdin Affiliation | 1027 | + + + | Race | Unknown | + + + | Ethnic Group | Unknown | + + + Author + + + | Author | [facility] | | | and Maverickana | + + + | Organization | [facility] | | | and [...] Team Providers + +------+ + | Care Slasher Machine Operator Name | Role | Phone [...] | | | left upper | | [address] | | | | | extremity, | | Phone: | | | | | including | | [phone] | | | | | shoulder | | Fax: | | | | | Procedures | | [phone] | | | | | GA EXC TUMOR | | | | | | | SOFT TISSUE | | | | | | | UPPER | | | | | | | ARM/ELBOW | | | | | | | SUBQ 3+CM | | | | | | | GA EXC SKIN | | | | | [...] | | | INTRA MAIN [address] | [address] | LEFT BASAL CELL | | | | [address] | [place] | CARCINOMA EXCISION | | | | [place] | | | | | | [phone] | [phone] | | | | | | | [...] above number, call our answering service at [phone]. Discharge Instructions: After Your Surgery You ve [...] interact with your prescription medicines or other eqdj-xox-jslwudg (OTC) drugs. Some pr escription medicines have [...] REPORT CASE: | CELLNETI X | | [id number]: Tiffanie Leighathology Report [id number]: | | | Tiffanie Valentin Date of [...] mass or lesion | | | isidentified. Clinical Operations Leader sections are submitted as follows: A1 | [...] - centralareas with | | | hemorrhage. ([id number]) Dominique Ordaz M.D. | | | Electronically signed 11/20/2015 19:55 Performed at | | | [facility], Critical access [place] [address] | | | CLIA#: [id number] ADDENDUM: #1 FLUORESCENCE IN-SITU HYBRIDIZATION | | | (FISH) STUDIES:Source: Block [id number]: Cells of interest Name | | | [...] | | found to harboramplification of the 08d53-83 region, which includes | | | the MDM2 (murinedouble minute 2) gene. In contrast, benign lipomas and | | | benign lipocytictumors as well as most other non-lipomatous sarcomas | | | have been shown sohpia negative for MDM2 amplification. Detection of | | | MDM2 amplification byFISH has been shown to be both very sensitive and | | | specific for thedistinction of various well-differentiated | | | liposarcoma subtypes; theaverage number of MDM2 and CEP12 signals is | | | determined and a MDM2/HTA61nzssn is calculated for each case. A | [...] 405Extremity-based Tumors. Am J Surg Pathol 2010; 34:4564-8792. | | | Methodology: Fluorescence in situ hybridization (FISH) for MDM2 | | | geneamplification (using MDM2/CEP12 probes and the Bharat [employer] | | | Metaferautomated scanning fluorescent microscope) is performed at | | | [place] [address]. Test results should be used in | | | conjunction with other availablelaboratory and clinical information. | | | This test was developed and itsperformance characteristics determined | | | by the Molecular PathologyLaboratory, [facility] | | | Laboratories. It [...] Cheryl Ortiz MD. | | | Electronically bcfdtw4211/23/2015 16:02 Performed at | | | [facility],[address] [place] [address], [place], | | | [place] [address] CLIA#:[id number]: Unless otherwise | | | specified, a microscopic exam has been performed. Received Date: | | | 01/26/2016Collection Date: 11/17/2015Referring Physician: Jamar IRVIN, | | | Guille Ronbon [facility] Physician copies: | | | | | | | | | | | |Several studies have shown that molecular analysis refines the | | |classification of lipomatous tumors and is useful to discriminate | | |lipomas from atypical lipomatous tumor/well-differentiated liposarcoma | | |(ALT/WDL). Well-differentiated liposarcomas have been found to harbor | | |amplification of the 04o09-10 region, which includes the MDM2 (murine | [...] |Extremity-based Tumors. Am J Surg Pathol 2010; 34:5568-6748. | | | | | |Methodology: Fluorescence in situ hybridization (FISH) for MDM2 gene | | |amplification (using MDM2/CEP12 probes and the Bharat Matrimon[employer] Metafer | | |automated scanning fluorescent microscope) is performed at [facility], | | |[place]. [address]. | | | | | |Test results should be used in conjunction with other available | | |laboratory and clinical information. This test was developed and its | | |performance characteristics determined by the Molecular Pathology | | |Laboratory, [facility]. It has not been approved [...] signed | | |11/23/2015 16:02 [facility]formed at [facility], | | |[facility] [address] StreetIA#: | | |[id number] | | |Microscopic: Unless otherwise specified, a microscopic exam has been performed. | | | | | |Received Date: 11/17/2015 | | |Collection Date: 11/17/2015 | | |Referring Physician: Jamar IRVIN, Guille Carolina | | |Additional Physician copies: | | + + -------+ + + + + + | Performing | Address | City/State[facility] | Phone Number | | Organization | | | | + + + + + | REFERENCE LAB | [address] | [place] [address] | [phone] | | [facility] | [address] | | [...]
--- OUTSIDE RECORDS SUMMARY | ~2020-03-22 | XMS | Clinical Summary ---
Demographics + + + | Address | [address] [place] | | | [place] [address] | + + + | Home Phone | | + + + | Preferred Language | Unknown | + + + | Marital Status | | + + + | Anglican Affiliation | 1027 | + + + | Race | Unknown | + + + | Ethnic Group | Unknown | + + + Author + + + | Author | [facility] | | | and Maverickana | + + + | Organization | [facility] | | | and Maverickana [...] Providers + +------+ + | Care Manager Traffic Name | Role | Phone | + [...] +--------+ +--------+ +---------+--------+ | LIFE | | [id number] | | [phone] | | Indemn | | | MDCR | | 016-Pr | 0 | | ity | | | SUPPL | | esent | | | | + +--------+ +--------+ +---------+--------+ | MEDICARE | MEDICA | [id number] | 06/23/20 | [phone] | | Medica [...] | 1950 | [phone] | [place] [address] | | | fabian | | | 7 (Home) | | | | | | | [phone] | | | | | | | 2 (Work) | | + +--------+ +--------+ + + Advance Directives + + + + + | Type | Date Recorded | Patient | Explanation | | | | Auto Service Writer | | + + + + + | Power of | | | | | Waste Paper Hammermill Operator | | | | + + + [...]
--- OUTSIDE RECORDS SUMMARY | ~2020-03-22 | XMS | Encounter Summary ---
Demographics + + + | Address | [address] | | | [place] [address] | + + + | Home Phone | | + + + | Preferred Language | Unknown | + + + | Marital Status | | + + + | Quaker Affiliation | 1027 | + + + | Race | Unknown | + + + | Ethnic Group | Unknown | + + + Author + + + | Author | [facility] | | | and Maverickana | + + + | Organization | [facility] | | | and [...] Team Providers + +------+ + | Care Legal Associate Name | Role | Phone | [...] | | | | | [address] | [place] | | | | | [place] | [address] | | | | | [address] | | | | | | [phone] | | | +--------+ + + + [...] 07/16/18 1640 by | | jayl | ugbu-ldt-ekqpty catheter system; | Mary Carmen Smith, | [...]
--- OUTSIDE RECORDS SUMMARY | ~2020-03-22 | XMS | Encounter Summary ---
Demographics + + + | Address | [address] | | | [place] [address] | + + + | Home Phone | | + + + | Preferred Language | Unknown | + + + | Marital Status | | + + + | Latter Day Affiliation | 1027 | + + + | Race | Unknown | + + + | Ethnic Group | Unknown | + + + Author + + + | Author | [facility] | | | and Maverickana | + + + | Organization | [facility] | [...] Team Providers + +------+ + | Care Production Supervisor Name | Role | Phone | [...] [facility] IP | MD [address] | | | | | [address]IC [address] | [address] [place] | | | | | [place], | [phone] | | | | | [place] | | | | | | [phone] | | | +--------+ + + + [...]
--- OUTSIDE RECORDS SUMMARY | ~2020-03-22 | XMS | Encounter Summary ---
Demographics + + + | Address | [address] | | | [place] [address] | + + + | Home Phone [...] Author + + + | Author | [facility] | + + + | Organization | [facility] | + + + | Address | Unknown | + + + | Phone | Unavailable | + + + Support + + +---------+ + | Name | Relationship | Address | Phone | + + +---------+ + | Marifer Valentin | ECON | Unknown | | + + +---------+ + Care Team Providers + +------+ + | Care Engineering And Operations Director Name | Role | Phone | [...] | Pain | Diagnoses | Goyal, | Automotive Sales Representative Psych | | Review | | Management | Morbid | Cindy, COKE CRANE OPERATOR | [facility] [address] | | | | | obesity with | [address] | | | | | BMI of | [address] | Mailcode: | | | | | 45.0-49.9, | [place], [place] | [facility] | | | | | adult (HCC) | [address] | for Health | | | | | Depression, | Phone: | and Healing, | | | | | unspecified | [phone] | Building [address], | | | | | depression | Fax: | 15th Floor | | | | | type | [phone] | [place], [place] | | | | | Hypertension | | [address] | | | | | , | | Phone: | | | | | unspecified | | [phone] | | | | | type | | Fax: | | | | | Obstructive | | [phone] | | | | | sleep apnea [...] 10/25/ | Office | [facility] | Beatriz Sanches | Morbid obesity with | | 2020 | Visit | [address] | Alicai, PhD [address] | BMI of 45.0-49.9, | | | | Mailcode: CH15P | [place], [place] | adult ([facility]) (Primary | | | | [facility] for [facility] | [address] | Dx); Depression, | | | | and Healing, | [phone] | unspecified | | | | | | depression type | | | | Floor [facility] [place] | | | | | | [address] | | | | | | [phone] | | | +--------+---------+ + + + [...] a 69 y.o. female who lives in [facility]. wi th her daughter and granddaughter. She was referred for psychological evaluation prior to [facility] surgery. Informed consent and limits of confidentiality were discussed prior to the interview. Please see medical records for previous attempts at weight management. Eating and Dietary Styles: Tiffanie reported she is eating within first hour of waking; eatin g regularly, about 4 times daily, and small portions. She is going to a [employer] support group f or weight management and [...] per week. 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 The p [...] She reports her father was an alcoholic. Protestant was a jeancarlos ce of support and [...] 3. She should continue with following the group sales representative's recommendations, and is encourged to improve her [...] with the patient was approximately 55 minutes txyu-ir-rzei with the maciel ent, and approximately 15 minutes of administering testing and 1 hour and 20 minutes of non- pqpp-rp-narl interpreting and synthesizing results. Beatriz Sanches, PhD [facility] [address]TH FLOOR [address] Mailcode: [place] [address] documented in thi s encounter Plan of Treatment Not on filedocumented as of this encounter Procedures + +--------+ + + + | Procedure Name | Priori | Date/Time | Associated Diagnosis | Comments | | | ty | | | | + +--------+ + + + | ND | Routin | 10/26/2019 | Morbid obesity | | | PSYCHOLOGICAL/NEUROP | e | 1:03 PM | with BMI of | | | SYCHOLOGICAL TEST | | PST | 45.0-49.9, adult | | | QHP; FIRST 30 MIN | | | ([facility]) Depression, | | | | | | unspecified | | | | | | depression type | | + +--------+ + + + | ND PSYCHOLOGICAL | Routin | 10/26/2019 | Morbid obesity | | | TESTING EVAL QHP; EA | e | 1:03 PM | with BMI of | | | ADDL HOUR | | PST | 45.0-49.9, adult | | | | | | ([facility]) Depression, | | | | | | unspecified | | | | | | depression type | | + +--------+ + + + | ND PSYCHOLOGICAL | Routin | 10/26/2019 | Morbid obesity | | | TESTING EVAL QHP; | e | 1:03 PM | with BMI of | | | FIRST HOUR | | PST | 45.0-49.9, adult | | | | | | ([facility]) Depression, | | | | | | unspecified | | | | | | depression type | | + +--------+ + + + documented in this encounter Visit Diagnoses + + | Diagnosis | + + | Morbid obesity with BMI of 45.0-49.9, adult ([facility]) - Primary | + + | Depression, unspecified depression type | + + documented in this encounter"
--- OUTSIDE RECORDS SUMMARY | ~2020-03-22 | XMS | Encounter Summary ---
Demographics + + + | Address | [address] | | | [place] [address] | + + + | Home Phone | | + + + | Preferred Language | Unknown | + + + | Marital Status | | + + + | Gnosticism Affiliation | 1027 | + + + | Race | Unknown | + + + | Ethnic Group | Unknown | + + + Author + + + | Author | [facility] | | | and [place]verick[place] | + + + | Organization | [facility] | | | and Maverickana | [...] Team Providers + +------+ + | Care Semi Conductor Assembler Name | Role | Phone | + [...] [facility] IP | [address] | | | | | GENERIC [address] | [address] | | | | | [place], | [place] [address] | | | | | [place] [address] | [phone] | | | | | [phone] | | | +--------+ + + + [...]
--- OUTSIDE RECORDS SUMMARY | ~2020-03-22 | XMS | Encounter Summary ---
Demographics + + + | Address | [address] | | | [place] [address] | + + + | Home Phone | | + + + | Preferred Language | Unknown | + + + | Marital Status | | + + + | Anabaptist Affiliation | 1027 | + + + | Race | Unknown | + + + | Ethnic Group | Unknown | + + + Author + + + | Author | [facility] | | | and Maverickana | + + + | Organization | [facility] [...] Team Providers + +------+ + | Care Rehab Assistant Name | Role | Phone | [...] | | | left upper | | [address] | | | | | extremity, | | Phone: | | | | | including | | [phone] | | | | | shoulder | | Fax: | | | | | Procedures | | [phone] | | | | | [place] EXC TUMOR | | | | | | | SOFT TISSUE | | | | | | | UPPER | | | | | | | ARM/ELBOW | | | | | | | SUBQ 3+CM | | | | | | | [place] EXC SKIN | | | | | [...] + + | 11/17/ | [facility] | Guille Roldan, | Basal cell carcinoma | | 2016 | Encounter | [facility] | MD [address] | of shoulder, left | | | | [facility] [address] | [address] | (Primary Dx); Soft | | | | [address] | [place] | tissue mass | | | | [place] [address] | [address] | | | | | [phone] | [phone] | | | | | | | [...] interact with your prescription medicines or other rttd-yvd-teuvnjt (OTC) drugs. Some pr escription medicines have [...] REPORT CASE: | CELLNETI X | | [id number]: Tiffanie CatalinoChan [facility] Report [id number]: | | | Tiffanie Valentin Date of [...] mass or lesion | | | isidentified. Field Agent sections are submitted as follows: A1 | [...] - centralareas with | | | hemorrhage. ([id number]) Dominique Ordaz M.D. | | | Electronically signed 11/20/2015 19:55 Performed at | | | [facility]-[address] [address] | | | CLIA#: [id number] ADDENDUM: #1 FLUORESCENCE IN-SITU HYBRIDIZATION | | | (FISH) STUDIES:Source: Block [id number]: Cells of interest Name | | | [...] | | found to harboramplification of the 80p41-15 region, which includes | | | the [...] is | | | determined and a MDM2/SUV68cvxyk is calculated for each case. A | [...] 405Extremity-based Tumors. Am J Surg Pathol 2010; 34:1250-5645. | | | Methodology: Fluorescence in situ hybridization (FISH) for MDM2 | | | geneamplification (using MDM2/CEP12 probes and the Buck Masonstems | | | Metaferautomated scanning fluorescent microscope) is performed at | | | [place]. [address]. Test results should be used in | | | conjunction with other availablelaboratory and clinical information. | | | This test was developed and itsperformance characteristics determined | | | by the Molecular PathologyLaboratory, [facility] | | | Laboratories. It has [...] Cheryl Ortiz MD. | | | Electronically aklosr5611/23/2015 16:02 Performed at | | | [facility],[address] [place] [address] [address], [place], | | | [place] [address] CLIA#:[id number]/[id number]: Unless otherwise | | | specified, a [...] to harbor | | |amplification of the 06b44-62 region, which includes the MDM2 (murine | [...] |Extremity-based Tumors. Am J Surg Pathol 2010; 34:4242-6605. | | | | | |Methodology: Fluorescence in situ hybridization (FISH) for MDM2 gene | | |amplification (using MDM2/CEP12 probes and the [employer] Metafer | | |automated scanning fluorescent microscope) is performed at [facility], | | |[place]. [address]. | | | | | |Test results should be used in conjunction with other available | | |laboratory and clinical information. This test was developed and its | | |performance characteristics determined by the Molecular Pathology | | |Laboratory, [facility]. It has not been approved [...] signed | | |11/23/2015 16:02 Performed at [facility], | | |[address] [place] [address]#: | | |[id number] | | |Microscopic: Unless otherwise specified, a microscopic exam has been performed. | | | | | |Received Date: 11/17/2015 | | |Collection Date: 11/17/2015 | | |Referring Physician: Guille Roldan MD | | |Additional Physician copies: | | + + -------+ + + + + + | Performing | Address | City/[facility] | Phone Number | | Organization | | | | + + + + + | REFERENCE LAB | [address] | [place] [address] | [phone] | | [facility] | [address] | | [...]
--- OUTSIDE RECORDS SUMMARY | ~2020-03-22 | XMS | Encounter Summary ---
Demographics + + + | Address | [address] | | | [place] [address] | + + + | Home Phone | | + + + | Preferred Language | Unknown | + + + | Marital Status | Single | + + + | Amish Affiliation | Unknown | + + + [...] Team Providers + +------+ + | Care Supervisor Ticket Sales Name | Role | Phone | + [...]
--- OUTSIDE RECORDS SUMMARY | ~2020-03-22 | XMS | Encounter Summary ---
Demographics + + + | Address | [address] | | | [place] [address] | + + + | Home Phone | | + + + | Preferred Language | Unknown | + + + | Marital Status | Single | + + + | Yarsani Affiliation | Unknown | + + + [...] Team Providers + +------+ + | Care Car Storer Name | Role | Phone | + +------+ + PCP | Unavailable | + +------+ + Encounter Details +--------+ + + + + | Date | Type | Department | Care Team | Description | +--------+ + + + + | 11/30/ | Abstract | [facility] | Clinic, Surgery | | | 2019 | | [place] [facility] [address] | | | | | | [address] | | | | | | Mailcode: [place] | | | | | | [facility] | | | | | | Healing, Building [address] | | | | | | [place], [place] | | | | | | [address] | | | | | | [phone] | | | +--------+ + + + [...]
--- OUTSIDE RECORDS SUMMARY | ~2020-03-22 | XMS | Encounter Summary ---
Demographics + + + | Address | [address] | | | [place] [address] | + + + | Home Phone | | + + + | Preferred Language | Unknown | + + + | Marital Status | Single | + + + | Shinto Affiliation | Unknown | + + + [...] Team Providers + +------+ + | Care Stockroom Worker Name | Role | Phone | [...] | 2018 | Visit | Center at [facility] [address] | | BMI of 45.0-49.9, | | | | [address] | | adult (HCC) (Primary | | | | Mailcode: Center | | Dx) | | | | for Health and | | | | | | [facility], [facility] 2 | | | | | | [place], [place] | | | | | | [address] | | | | | | [phone] | | | +--------+---------+ + + + [...] . Documented Time of Class: 60 minutes svae-ag-dxhf with patient OBJECTIVE: Height: Ht Readings from [...] Shoshana Paniagua, MS, RDN, CSOWM, LD, CDE [facility] Bariatrics [phone] documented in this e ncounter Plan of Treatment Not on filedocumented as of this encounter Visit Diagnoses + + | Diagnosis | + + | Morbid obesity with BMI of 45.0-49.9, adult (HCC) - Primary | + + documented in this encounter
--- OUTSIDE RECORDS SUMMARY | ~2020-03-22 | XMS | Encounter Summary ---
Demographics + + + | Address | [address] | | | [place] [address] | + + + | Home Phone | | + + + | Preferred Language | Unknown | + + + | Marital Status | | + + + | Mandaen Affiliation | 1027 | + + + | Race | Unknown | + + + | Ethnic Group | Unknown | + + + Author + + + | Author | [facility] | | | and Maverickana | + + + | Organization | [facility] [...] Team Providers + +------+ + | Care Human Resources Executive Assistant Name | Role | Phone | [...] | [facility] IP | [address] [facility] | | | | | [address]IC [address] | [address] | | | | | [place], | [place] [address] | | | | | [place] [address] | [phone] | | | | | [phone] | | | +--------+ + + + [...]
--- OUTSIDE RECORDS SUMMARY | ~2020-03-22 | XMS | Encounter Summary ---
Demographics + + + | Address | [address] | | | [place] [address] | + + + | Home Phone | | + + + | Preferred Language | Unknown | + + + | Marital Status | | + + + | Jain Affiliation | 1027 | + + + | Race | Unknown | + + + | Ethnic Group | Unknown | + + + Author + + + | Author | [facility] | | | and Maverickana | + + + | Organization | [facility] | | | and [...] Providers + +------+ + | Care Supervisor Composing Room Name | Role | Phone | + [...] [place]ET[place] | | | | | [place] EXC SKIN | | [address] | | | | | [place] | | Phone: | | | | | 2.1-3CM | | [phone] | | | | | TRUNK,ARM,LE | | Fax: | | | | | G FL SPLIT | | [phone] | | | | | GRFT | [...] | | | | | [facility] [address] [place] | [address] [place], | | | | | [address] | [place] [address] | | | | | [place] | [phone] | | | | | [phone] | | | +--------+ + + + [...] CORONARIES/CORONARY INTERVENTION; Surgeon: Jozef Hoover MD; Location: [facility] Carpal tunnel release Left 11/19/2007 Dr. Trey Morrell Carpal tunnel release Right 10/04/2007 Dr. Trey Morrell Eye surgery Bilateral cataracts with lens implant Skin full graft Right 10/07/2015 Procedure: EXCISION OF RIGHT UPPER BACK BASAL CELL CARCINOMA; Surgeon: Sundeep Lee MD; Location: [facility] [place] ALLERGIES: Review of patient's allergies indicates no [...] appointment: Appointment with Dr. Lee at the [facility] in the [facility] in 1 week as scheduled. Activity: No [...] Dr. Lee at the [facility], 2nd Floor on 10/13 at 8:00am. Please [...] number, call our answering service at ( [phone]. You have received sedation / an anesthetic today. DO NOT drive a vehicle, use alcoholic joseph erages, sign legal documents, take public transportation alone or care for a dependent perso n for the next 24 hours.:[id number]} documented in this encounter Medications at Time [...] | | 65Date of : 1950 CASE: [id number]: Tiffanie | CELLNETI X | | [facility] [id number]: Tiffanie Valentin | | | Date of [...] scar is 0.9cm from the deep margin. Fireworks Assembler | | | sections are submitted asfollows: A1 - tips; A2-A8 - entire lesion | | | blocked out. (pam/[id number]) Jackson Vivar M.D. Electronically | | | signed 10/09/2015 13:07 Performed at [facility] | | | [place] [address] CLIA#: | | | [id number]: Unless otherwise specified, a microscopic exam | | | has been performed. Received Date: 10/07/2015Collection Date: | | | 10/07/2015Referring Physician: Jesus IRVIN, Sundeep [facility] | | | Physician copies: | | [...] | | |cm from the deep margin. Fireworks Assembler sections are submitted as | | |follows: A1 - tips; A2-A8 - entire lesion blocked out. (pam/[id number]) | | | | | | | | | | | | | | | Jackson Vivar M.D. Electronically signed 10/09/2015 13:07 (343) | | |[phone] Performed at [facility] Pathology[address], | | |[place] [address] [facility]#: [id number] | | |Microscopic: Unless otherwise specified, a [...] + | REFERENCE LAB | [address] [facility] | [place] [address] | [phone] | | CELLNETIX | 200 | | [...]
--- OUTSIDE RECORDS SUMMARY | ~2020-03-22 | XMS | Encounter Summary ---
Demographics + + + | Address | [address] | | | [place] [address] | + + + | Home Phone [...] | Author | [facility] | + + + | Organization | [facility] | + + + | Address | Unknown | + + + | Phone | Unavailable | + + + Support + + +---------+ + | Name | Relationship | Address | Phone | + + +---------+ + | Marifer Valentin | ECON | Unknown | | + + +---------+ + Care Team Providers + +------+ + | Care Stonemason Supervisor Name | Role | Phone | [...] | Pain | Diagnoses | Goyal, | Print Binding Worker Psych | | Review | | Management | Morbid | Cindy, INSTRUMENT/CONTROL TECHNICIAN | [facility] [address] | | | | | obesity with | [address] | | | | | BMI of | [address] | Mailcode: | | | | | 45.0-49.9, | [place], [place] | [facility] | | | | | adult (HCC) | [address] | for Health | | | | | Depression, | Phone: | and Healing, | | | | | unspecified | [phone] | Building 1, | | | | | depression | Fax: | 15th Floor | | | | | type | [phone] | [place], [place] | | | | | Hypertension | | [address] | | | | | , | | Phone: | | | | | unspecified | | [phone] | | | | | type | | Fax: | | | | | Obstructive | | [phone] | | | | | sleep apnea [...] 10/25/ | Office | [facility] | Beatriz Sanches | Morbid obesity with | | 2020 | Visit | [address] | Alicia, PhD [address] | BMI of 45.0-49.9, | | | | Mailcode: CH15P | [place], [place] | adult ([facility]) (Primary | | | | Center for Health | [address] | Dx); Depression, | | | | and Healing, | [phone] | unspecified | | | | | | depression type | | | | Floor [facility] [place] | | | | | | [address] | | | | | | [phone] | | | +--------+---------+ + + + [...] a 69 y.o. female who lives in [facility]. wi th her daughter and granddaughter. She was referred for psychological evaluation [facility]. Informed consent and limits of confidentiality were discussed prior to the interview. Please see medical records for previous attempts at weight management. Eating and Dietary Styles: Tiffanie reported she is eating within first hour of waking; eatin g regularly, about 4 times daily, and small portions. She is going to a [employer] support group f or weight management and [...] per week. 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 The p [...] She reports her father was an alcoholic. Jewish was a jeancarlos ce of support and [...] 3. She should continue with following the powder core tester's recommendations, and is encourged to improve her [...] with the patient was approximately 55 minutes mypy-tu-wova with the maciel ent, and approximately 15 minutes of administering testing and 1 hour and 20 minutes of non- ydij-fs-wzui interpreting and synthesizing results. Beatriz Sanches, PhD [facility] 15TH FLOOR [address] Mailcode: [place]15[place] [address] documented in thi s encounter [...] QHP; FIRST 30 MIN | | | ([facility]) Depression, | | | | | [...] adult | | | | | | ([facility]) Depression, | | | | | [...] adult | | | | | | ([facility]) Depression, | | | | | | unspecified | | | | | | depression type | | + +--------+ + + + documented in this encounter Visit Diagnoses + + | Diagnosis | + + | Morbid obesity with BMI of 45.0-49.9, adult ([facility]) - Primary | + + | Depression, unspecified depression type | + + documented in this encounter"
--- OUTSIDE RECORDS SUMMARY | ~2020-03-22 | XMS | Encounter Summary ---
Demographics + + + | Address | [address] | | | [place] [address] | + + + | Home Phone | | + + + | Preferred Language | Unknown | + + + | Marital Status | | + + + | Congregation Affiliation | 1027 | + + + | Race | Unknown | + + + | Ethnic Group | Unknown | + + + Author + + + | Author | [facility] | | | and Maverickana | + + + | Organization | [facility] | | | and [...] Team Providers + +------+ + | Care Systems Designer Name | Role | Phone | [...] | [facility] [place] | [address] [facility] | | | | | INTRA [address] | [address] | | | | | [address] | [place] | | | | | [place] | [phone] | | | | | [phone] | | | +--------+ + + + [...]
--- OUTSIDE RECORDS SUMMARY | ~2020-03-22 | XMS | Encounter Summary ---
Demographics + + + | Address | [address] | | | [place] [address] | + + + | Home Phone | | + + + | Preferred Language | Unknown | + + + | Marital Status | | + + + | Synagogue Affiliation | 1027 | + + + | Race | Unknown | + + + | Ethnic Group | Unknown | + + + Author + + + | Author | [facility] | | | and Maverickana | + + + | Organization | [facility] | | | and Maverickana [...] Providers + +------+ + | Care Engineering Administrator Name | Role | Phone | + [...] | | | | | | | MS CATH | | | | | | | PLACE/CORON | | | | | | | ANGIO, IMG | | | | | | | SUPER/INTERP | | | | | | | ,W LEFT | | | | | | | HEART | | | | | | | VENTRICULOGR | | | | | | | APHY MS PRQ | | | | | | | TRLUML | | | | | | | CORONARY | | | | | | | STENT | | | | | | | W/ANGIO ONE | | | | | | | ART/BRNCH | | | | | | | MS PRQ | | | | | | [...] MED CTR CV | MD Janette [address] | CORONARIES/CORONARY | | | | INTRA [address] | [place] | INTERVENTION | | | | [place] | [address] | | | | | | [phone] | | | | | [phone] | | | +--------+---------+ + + + [...] Physician Discharge Summary Patient ID: Tiffanie Valentin [id number] 64 y.o. 1950 Admit date: 01/02/2015 Discharge date and time: No discharge date for patient encounter. Admitting Physician: Jozef Hoover MD Discharge Physician: Jozef Hoover MD [facility] Interventional Cardiology [place], [place] Admission Diagnoses: Nonspecific abnormal unspecified cardiovascular [...] present. Please notify your MD and/or your Press Machine Operator if any of the follo wing occur: [...] + | Jozef Hoover MD 01/02/2015 9:22 [facility] | [facility] | | [facility] CARDIAC CATHETERIZATION REPORT PATIENT | | | NAME: | | | Tiffanie Valentin DATE OF : | | | 1950 MEDICAL | | | RECORD NUMBER: [id number] | | | DATE OF PROCEDURE: | | | 01/02/2015 FACILITY: | | | [facility] | | | [place], [place] | | | | | | PRIMARY CARE PROVIDER: | | | Peng Fink PRIMARY ORGANIZATION DEVELOPMENT CONSULTANT: | | | Jozef Hoover MD [facility] Interventional Cardiology | | | [place] RV SERVICE TECHNICIAN: | | | Dr. Jozef Hoover MD | | | [facility] PRE-PROCEDURE DIAGNOSIS: | | | abnormal stress [...] and anesthetized with 1% lidocaine. A 6 zambian sheath was | | | placed into the right radial artery A 6 zambian pigtail cathether was | | | advanced into the left ventricle, pressures were measured, and left | | | ventriculography was performed. Standard angiography was performed | | | in multiple views using 6 Setswana tiger catheter to engage the | | [...] Jozef Siddiqui | | | MD Kiko [facility] Interventional Cardiology [facility] | | | [place], [place] 01/02/2015 9:20 | | + + [...] | | | | 324 mg, Oral, BOX LINING MACHINE FEEDER, Starting | | 15 7:29 | | [...] | mLs | | | | Intravenous, BOX LINING MACHINE FEEDER, Starting | | AM PDT | | [...]
--- OUTSIDE RECORDS SUMMARY | ~2020-03-22 | XMS | Encounter Summary ---
Demographics + + + | Address | [address] | | | [place] [address] | + + + | Home Phone | | + + + | Preferred Language | Unknown | + + + | Marital Status | | + + + | Religion Affiliation | 1027 | + + + | Race | Unknown | + + + | Ethnic Group | Unknown | + + + Author + + + | Author | [facility] | | | and Maverickana | + + + | Organization | [facility] | [...] Team Providers + +------+ + | Care Oil Rigger Name | Role | Phone | + [...] MED CTR IP | [address] [facility] [facility] | | | | | [address]IC [address] | [address] | | | | | [place], | [place] [address] | | | | | [place] [address] | [phone] | | | | | [phone] | | | +--------+ + + + [...]
--- OUTSIDE RECORDS SUMMARY | ~2020-03-22 | XMS | Encounter Summary ---
Demographics + + + | Address | [address] | | | [place] [address] | + + + | Home Phone | | + + + | Preferred Language | Unknown | + + + | Marital Status | Single | + + + | Quaker Affiliation | Unknown | + + + [...] Team Providers + +------+ + | Care Woven Blind Loom Tender Name | Role | Phone | + +------+ + | Stephanie Washington | PCP | | + +------+ + Encounter Details +--------+ + + + + | Date | Type | Department | Care Team | Description | +--------+ + + + + | 07/08/ | Documentati | Digestive Health | Clinic, Surgery | | | 2019 | on | Center at [facility] [address] | | | | | | [address] | | | | | | Mailcode: [place] | | | | | | for Health and | | | | | | Healing, Building [address] | | | | | | [place], [place] | | | | | | [address] | | | | | | [phone] | | | +--------+ + + + [...]
--- OUTSIDE RECORDS SUMMARY | ~2020-03-22 | XMS | Encounter Summary ---
Demographics + + + | Address | [address] | | | [place] [address] | + + + | Home Phone | | + + + | Preferred Language | Unknown | + + + | Marital Status | | + + + | Restoration Affiliation | 1027 | + + + | Race | Unknown | + + + | Ethnic Group | Unknown | + + + Author + + + | Author | [facility] | | | and Maverickana | + + + | Organization | [facility] [...] Team Providers + +------+ + | Care City Planning Teacher Name | Role | Phone | [...] | [facility] [place] | [address] | | | | | [address] | [address] [place] | | | | | [place], | [phone] | | | | | [place] [address] | | | | | | [phone] | | | +--------+ + + + [...]
--- OUTSIDE RECORDS SUMMARY | ~2020-03-22 | XMS | Clinical Summary ---
Demographics + + + | Address | [address] [facility] [address] [facility] | | | [place] [address] | + + + | Home Phone | | + + + | Preferred Language | Unknown | + + + | Marital Status | | + + + | Faith Affiliation | 1027 | + + + | Race | Unknown | + + + | Ethnic Group | Unknown | + + + Author + + + | Author | [facility] | | | and Maverickana | + + + | Organization | [facility] | | | and [...] Team Providers + +------+ + | Care Jig Borer Name | Role | Phone | + +------+ + | Pegn Fink MD | PCP | | + [...] +--------+ +--------+ +---------+--------+ | LIFE | | [id number] | | [phone] | | Indemn | | | MDCR | | 016-Pr | 0 | | ity | | | SUPPL | | esent | | | | + +--------+ +--------+ +---------+--------+ | MEDICARE | MEDICA | [id number] | 06/23/20 | [phone] | | Medica [...] | 1950 | [phone] | [place] [address] | | | fabian | | | 7 (Home) | | | | | | | [phone] | | | | | | | 2 (Work) | | + +--------+ +--------+ + + Advance Directives + + + + + | Type | Date Recorded | Patient | Explanation | | | | Tapering Machine Operator | | + + + + + | Power of | | | | | Sourcing Assistant | | | | + + + [...]
--- OUTSIDE RECORDS SUMMARY | ~2020-03-22 | XMS | Encounter Summary ---
Demographics + + + | Address | [address] | | | [place] [address] | + + + | Home Phone [...] Team Providers + +------+ + | Care Zigzag Machine Operator Name | Role | Phone [...]
--- OUTSIDE RECORDS SUMMARY | ~2020-03-22 | XMS | Encounter Summary ---
Demographics + + + | Address | [address] | | | [place] [address] | + + + | Home Phone | | + + + | Preferred Language | Unknown | + + + | Marital Status | | + + + | Zoroastrian Affiliation | 1027 | + + + | Race | Unknown | + + + | Ethnic Group | Unknown | + + + Author + + + | Author | [facility] | | | and Maverickana | + + + | Organization | [facility] | | | and Maverickana [...] + +------+ + | Care Sewing Machine Repairer Helper Name | Role | Phone | [...] | | | left upper | | [address] | | | | | extremity, | | Phone: | | | | | including | | [phone] | | | | | shoulder | | Fax: | | | | | Procedures | | [phone] | | | | | CA EXC TUMOR | | | | | | | SOFT TISSUE | | | | | | | UPPER | | | | | | | ARM/ELBOW | | | | | | | SUBQ 3+CM | | | | | | | CA EXC SKIN | | | | | [...] Event | [facility] [place] | GYMNASTICS INSTRUCTOR [address] | | | | | [address] | [address] [place], | | | | | [address] | [place] [address] | | | | | [place] [address] | [phone] | | | | | [phone] | | | | | | | Hardeep Johnson, | | | | | | GYMNASTICS INSTRUCTOR [address] | | | | | | [place] | | | | | | [address] | | | | | | | [...] +----+---+ + + | | 1 | [place] | | | | 0 | 43-degrees [...] +----+---+ + + | | 1 | [place] off | | | | 2 | [...] + + | Periph | 10/07/15; 0821; cuzb-obe-ofifgm | 10/07/15 0821 by | 07/16/18 1411 [...] + + | Periph | 11/17/15; 1000; roto-uxn-diewrt | 11/17/15 1000 by | 11/17/15 1416 by | | eral | catheter system; 20 gauge, 1 in | Latasha Abbott | Dilcia Sewell, | | IV | length; distraction, intradermal | | GRANULATOR TENDER | | | injection, tolerated well; | [...] | healing within expectations; | RN | GRANULATOR TENDER | | | 11/17/15; 1416 | | | +--------+ + + + | Read | 11/17/15; 1144; Left; arm; | 11/17/15 1144 by | 11/17/15 1416 by | | only - | healing within expectations; | Collette Edmonds, | Dilcia Sewell, | | | 11/17/15; 1416 | RN | GRANULATOR TENDER | | Incisi | | | | [...]
--- OUTSIDE RECORDS SUMMARY | ~2020-03-22 | XMS | Encounter Summary ---
Demographics + + + | Address | [address] | | | [place] [address] | + + + | Home Phone | | + + + | Preferred Language | Unknown | + + + | Marital Status | | + + + | Shinto Affiliation | 1027 | + + + | Race | Unknown | + + + | Ethnic Group | Unknown | + + + Author + + + | Author | [facility] | | | and [place]ick[place] | + + + | Organization | [facility] | | | and Maverickana [...] Team Providers + +------+ + | Care Business Systems Advisor Name | Role | Phone | + +------+ + | Peng Fink MD | PCP | | + +------+ + Encounter Details +--------+---------+ + + + | Date | Type | Department | Care Team | Description | +--------+---------+ + + + | 07/16/ | Surgery | [facility] | Ezra Green MD | EGD | | 2018 | | MED CTR MP INTRA OP | [address] | | | | | [address] | [place], [place] | | | | | [place], [place] | [address] | | | | | [address] | [phone] | | | | | [phone] | | | +--------+---------+ + + + [...] You can't be awakened Date Last Reviewed: 08/09/201619993527-2349 [employer]. [address] [place] [address], [place] [address]. All righ ts reserved. This information is [...] | | | cell metaplasia or dysplasia. [facility]:smn:C2NR GROSS DESCRIPTION: | | | A. [...] | | | interpretation were performed by [facility], [address] | | | [facility] [place] [address] (Barrel Roller Operator: Jonatan Johns | | | [place]; CLIA#: [id number]). Diagnostician: Rene Rothman | | | [place] Pathologist Electronically Signed 07/18/2018 | | + + + + +---------+ + + | Performing | Address | City/State/Zipcode | Phone Number | | Organization | | | | + +---------+ + + | [facility] | | | | | [facility] [...]
--- OUTSIDE RECORDS SUMMARY | ~2020-03-22 | XMS | Encounter Summary ---
Demographics + + + | Address | [address] [facility] [facility] | | | [place] [address] | + + + | Home Phone [...] Organization | [facility] [...] Providers + +------+ + | Care Business Continuity Analyst Name | Role | Phone | + +------+ + | Peng Fink MD | PCP | | + +------+ + Encounter Details +--------+---------+ + + + | Date | Type | Department | Care Team | Description | +--------+---------+ + + + | 07/16/ | Surgery | [facility] | Ezra Green MD | EGD | | 2018 | | MED CTR MP INTRA OP | [address] | | | | | [address] | [place], [place] | | | | | [place], [place] | [address] | | | | | [address] | [phone] | | | | | [phone] | | | +--------+---------+ + + + [...] You can't be awakened Date Last Reviewed: 08/09/201619998362-7670 [employer]. [address] [place] [address], [place] [address]. All righ ts reserved. This information is [...] | | | interpretation were performed by [facility], [address] | | | [place] [address] (Swage Toolsetter: Jonatan Johns | | | Jareth Hamilton; CLIA#: [id number]). Diagnostician: Rene Rothman | | | Glenis IRVIN Pathologist Electronically Signed 07/18/2018 | | + + + + +---------+ + + | Performing | Address | City/State/Zipcode | Phone Number | | Organization | | | | + +---------+ + + | [facility] | | | | | [facility] [...]
--- OUTSIDE RECORDS SUMMARY | ~2020-03-22 | XMS | Clinical Summary ---
Demographics + + + | Address | [address] | | | [place] [address] | + + + | Home Phone | | + + + | Preferred Language | Unknown | + + + | Marital Status | Single | + + + | Yazdanism Affiliation | Unknown | + + + | Race | White | + + + | Ethnic Group | Not or | + + + Author + + + | Author | [facility] | + + + | Organization | [facility] | + + + | Address | Unknown | + + + | Phone | Unavailable | + + + Support + + +---------+ + | Name | Relationship | Address | Phone | + + +---------+ + | Marifer Valentin | ECON | Unknown | | + + +---------+ + Care Team Providers + +------+ + | Care Drama Teacher Name | Role | Phone | + +------+ + | Stephanie Washington | PCP | | + +------+ + Source Comments NICOLE is [facility] Allergies No Known Allergies Medications + [...] | 9 | + + + + Family History [...] | [employer] | xxxxxxxxx | 10/23/19 | [phone] | [address] | PPO | | | MEDICA | | 20-Pre | 4 | [address] | | | | RE PPO | | sent | | [place], | | | | | | | | [place] [address] | | + +--------+ +--------+ + +------+ + +--------+ +--------+ + + | Guarantor Name | Accoun | Relation to | Date | Phone | Billing Address | | | t Type | Patient | of | | | | | | | | | | + +--------+ +--------+ + + | Tiffanie Valentin | Person | Self | [birth year] | [address] | | | al/Fam | | 1 | [phone] | [place] | | | fabian | | | 8 (Home) | [address] | + +--------+ +--------+ + +
--- OUTSIDE RECORDS SUMMARY | ~2020-03-22 | XMS | Encounter Summary ---
Demographics + + + | Address | [address] | | | [place] [address] | + + + | Home Phone [...] Team Providers + +------+ + | Care Acquisition Associate Name | Role | Phone | [...]
--- OUTSIDE RECORDS SUMMARY | ~2020-03-22 | XMS | Encounter Summary ---
Demographics + + + | Address | [address] | | | [place] [address] | + + + | Home Phone | | + + + | Preferred Language | Unknown | + + + | Marital Status | Single | + + + | Moravian Affiliation | Unknown | + + + [...] Team Providers + +------+ + | Care Flow Floor Attendant Name | Role | Phone | + [...]
--- OUTSIDE RECORDS SUMMARY | ~2020-03-22 | XMS | Encounter Summary ---
Demographics + + + | Address | [address] [facility] | | | [place] [address] | + + + | Home Phone [...] Organization | [facility] | | | and [...] Providers + +------+ + | Care Speech Language Pathologist Name | Role | Phone | + [...] | [facility] [place] | [address] [facility] | | | | | IN[address] | [address] | | | | | [address] | [place] | | | | | [place] | [phone] | | | | | [phone] | | | +--------+ + + + [...]
--- OUTSIDE RECORDS SUMMARY | ~2020-03-22 | XMS | Encounter Summary ---
Demographics + + + | Address | [address] | | | [place] [address] | + + + | Home Phone [...] Providers + +------+ + | Care Supervisor Orchard Name | Role | Phone | + [...]
--- OUTSIDE RECORDS SUMMARY | ~2020-03-22 | XMS | Encounter Summary ---
Demographics + + + | Address | [address] | | | [place] [address] | + + + | Home Phone [...] Author + + + | Author | [facility] | + + + | Organization | [facility] | + + + | Address | Unknown | + + + | Phone | Unavailable | + + + Support + + +---------+ + | Name | Relationship | Address | Phone | + + +---------+ + | Marifer Valentin | ECON | Unknown | | + + +---------+ + Care Team Providers + +------+ + | Care Review Scheduling Coordinator Name | Role | Phone | + +------+ + | Stephanie Washington | PCP | | + +------+ + Encounter Details +--------+ + + + + | Date | Type | Department | Care Team | Description | +--------+ + + + + | 07/10/ | Abstract | Digestive Health | Clinic, Surgery | | | 2019 | | [place] [facility] [address] | | | | | | [address] | | | | | | Mailcode: [place] | | | | | | for Health and | | | | | | Healing, Building 2 | | | | | | [place], [place] | | | | | | [address] | | | | | | [phone] | | | +--------+ + + + [...]
--- OUTSIDE RECORDS SUMMARY | ~2020-03-22 | XMS | Encounter Summary ---
Demographics + + + | Address | [address] | | | [place] [address] | + + + | Home Phone | | + + + | Preferred Language | Unknown | + + + | Marital Status | Single | + + + | Church Affiliation | Unknown | + + + [...] Providers + +------+ + | Care Director Graphics Name | Role | Phone | + [...] Medical Records | | 2019 | | [place] [facility] [address] | [address] | Review | | | | [address] | [place], [place] | | | | | Mailcode: [place] | [address] | | | | | for Health and | [phone] | | | | | [facility] 2 | | | | | | [place], [place] | | | | | | [address] | | | | | | [phone] | | | +--------+ + + + [...]
--- OUTSIDE RECORDS SUMMARY | ~2020-03-22 | XMS | Encounter Summary ---
Demographics + + + | Address | [address] | | | [place] [address] | + + + | Home Phone [...] + +------+ + | Care Sewing Machine Mechanic Name | Role | Phone | [...] | Visit | Center at [facility] [address] | | BMI of 45.0-49.9, | | | | [address] | | adult (HCC) (Primary | | | | Mailcode: Center | | Dx) | | | | for Health and | | | | | | [facility], [facility] 2 | | | | | | [place], [place] | | | | | | [address] | | | | | | [phone] | | | +--------+---------+ + + + [...] . Documented Time of Class: 60 minutes jdje-kw-awmo with patient OBJECTIVE: Height: Ht Readings from [...] Shoshana Paniagua, MS, RDN, CSOWM, LD, CDE [facility] Bariatrics [phone] documented in this e ncounter Plan of Treatment Not on filedocumented as of this encounter Visit Diagnoses + + | Diagnosis | + + | Morbid obesity with BMI of 45.0-49.9, adult (HCC) - Primary | + + documented in this encounter
--- OUTSIDE RECORDS SUMMARY | ~2020-03-22 | XMS | Encounter Summary ---
Demographics + + + | Address | [address] | | | [place] [address] | + + + | Home Phone | | + + + | Preferred Language | Unknown | + + + | Marital Status | | + + + | Congregational Affiliation | 1027 | + + + | Race | Unknown | + + + | Ethnic Group | Unknown | + + + Author + + + | Author | [facility] | | | and [place] | + + + | Organization | [facility] | | | and [place] [...] + +------+ + | Care Director Of Public Health Name | Role | Phone | + [...] [facility] | MD [address] [place] | | | | | [address] [place] | | | | | [place], | [phone] | | | | | [place] | | | | | | [phone] | | | +--------+ + + + [...]
--- OUTSIDE RECORDS SUMMARY | ~2020-03-22 | XMS | Encounter Summary ---
Demographics + + + | Address | [address] | | | [place] [address] | + + + | Home Phone [...] Team Providers + +------+ + | Care Sheriff Detective Name | Role | Phone | + [...] | Mailcode: | | | | | ([facility]) | [place], [place] | Center for | | | | | Procedures | [phone] | Health and | | | | | PHYSICAL | Phone: | Healing, | | | | | THERAPY | [phone] | Building 2 | | | | | REFERRAL | Fax: | [place], [place] | | | | | | [phone] | [address] Phone: | | | | | | | [phone] | | | | | | | Fax: | | | | | | | [phone] | + +--------+ + + + + Encounter Details +--------+ + + + + | Date | Type | Department | Care Team | Description | +--------+ + + + + | 07/08/ | [place] Through [place] | Digestive Health | Cindy Goyal, | Severe obesity (BMI | | 2019 | | Center at [facility] [address] | FRAME GATE MORTISER OPERATOR [address] | >= 40) ([facility]) | | | | [address] | [place], [place] | (Primary Dx) | | | | Mailcode: [place] | [address] | | | | | for Health and | [phone] | | | | | [facility], [facility] 2 | | | | | | [place], [place] | | | | | | [address] | | | | | | | [...]
--- OUTSIDE RECORDS SUMMARY | ~2020-03-22 | XMS | Encounter Summary ---
Demographics + + + | Address | [address] | | | [place] [address] | + + + | Home Phone [...] Team Providers + +------+ + | Care Roll Mill Operator Name | Role | Phone | [...] | 2019 | Visit | Center at [facility] [address] | | BMI of 45.0-49.9, | | | | [address] | | adult (HCC) (Primary | | | | Mailcode: Center | | Dx) | | | | for Health and | | | | | | [facility] Er, [facility] 2 | | | | | | [place], [place] | | | | | | [address] | | | | | | [phone] | | | +--------+---------+ + + + [...] Gastrectomy. Documented Time of Class: 60 minutes fgob-ek-bbdh with patient OBJECTIVE: Ht Readings from Last [...] Shoshana Paniagua, MS, RDN, CSOWM, LD, CDE [facility] Bariatrics [phone] documented in this e ncounter Plan of Treatment Not on filedocumented as of this encounter Visit Diagnoses + + | Diagnosis | + + | Morbid obesity with BMI of 45.0-49.9, adult (HCC) - Primary | + + documented in this encounter
--- OUTSIDE RECORDS SUMMARY | ~2020-03-22 | XMS | Encounter Summary ---
Demographics + + + | Address | [address] | | | [place] [address] | + + + | Home Phone [...] Organization | [facility] [...] Team Providers + +------+ + | Care Spray Ii Painter Name | Role | Phone | [...] | [facility] IP | [address] | | | | | [address] | [address] | | | | | [place], | [place] [address] | | | | | [place] [address] | [phone] | | | | | [phone] | | | +--------+ + + + [...]
--- OUTSIDE RECORDS SUMMARY | ~2020-03-22 | XMS | Encounter Summary ---
Demographics + + + | Address | [address] | | | [place] [address] | + + + | Home Phone [...] Author + + + | Author | [facility] | + + + | Organization | [facility] | + + + | Address | Unknown | + + + | Phone | Unavailable | + + + Support + + +---------+ + | Name | Relationship | Address | Phone | + + +---------+ + | Marifer Valentin | ECON | Unknown | | + + +---------+ + Care Team Providers + +------+ + | Care Wafer Polisher Name | Role | Phone | + [...] | | | | | | | [place], [place] | | | | | | | [address] | | | | | | | Phone: | | | | | | | [phone] | | | | | | | Fax: | | | | | | | [phone] | + +--------+ + + + + Encounter Details +--------+---------+ + + + | Date | Type | Department | Care Team | Description | +--------+---------+ + + + | 12/20/ | Office | Digestive Health | Marita Hadley, | Gastroesophageal | | 2020 | Visit | Center at [facility] [address] | MD [address] | reflux disease, | | | | [address] | [place], [place] | esophagitis presence | | | | Mailcode: Center | [address] | not specified | | | | for Health and | [phone] | (Primary Dx); Morbid | | | | [facility] 2 | | obesity with BMI of | | | | [place], [place] | | 45.0-49.9, adult | | | | [address] | | ([facility]) | | | | [phone] | | | +--------+---------+ + + + [...] Name: Tiffanie Valentin : 1950 Medical Record: [id number] ID: Tiffanie Valentin is a 69-year-old female [...] file Gets together: Not on file Attends latter day service: Not on file Active member of club or organization: Not on file Attends meetings of clubs or organizations: Not on file Relationship status: Not on file Other Topics Concern Not on file Social History Narrative Retired, used to work for [employer] in [place], [place]. Lives at home with daughter an [...] the fellow s note. Marita Hadley MD [facility] [address] [facility] Mailcode: [place] [address] documented in this encounter Plan of Treatment Not on filedocumented as of this encounter Visit Diagnoses + + | Diagnosis | + + | Gastroesophageal reflux disease, esophagitis presence not specified - Primary | + + | Morbid obesity with BMI of 45.0-49.9, adult ([facility]) | + + documented in this encounter
--- OUTSIDE RECORDS SUMMARY | ~2020-03-22 | XMS | Encounter Summary ---
Demographics + + + | Address | [address] | | | [place] [address] | + + + | Home Phone | | + + + | Preferred Language | Unknown | + + + | Marital Status | | + + + | Methodist Affiliation | 1027 | + + + | Race | Unknown | + + + | Ethnic Group | Unknown | + + + Author + + + | Author | [facility] | | | and [place] | + + + | Organization | [facility] | | | and [place] [...] Team Providers + +------+ + | Care Electric Lift Truck Driver Name | Role | Phone | + [...] | [facility] IP | [address] [facility] | | | | | [address] | [address] | | | | | [place], | [place] [address] | | | | | [place] [address] | [phone] | | | | | [phone] | | | +--------+ + + + [...]
--- OUTSIDE RECORDS SUMMARY | ~2020-03-22 | XMS | Encounter Summary ---
Demographics + + + | Address | [address] | | | [place] [address] | + + + | Home Phone | | + + + | Preferred Language | Unknown | + + + | Marital Status | | + + + | Mandaeism Affiliation | 1027 | + + + | Race | Unknown | + + + | Ethnic Group | Unknown | + + + Author + + + | Author | [facility] | | | and [place] | + + + | Organization | [facility] | | | and [place] | [...] Providers + +------+ + | Care Senior Officer Name | Role | Phone | [...] | | | left upper | | [address] | | | | | extremity, | | Phone: | | | | | including | | [phone] | | | | | shoulder | | Fax: | | | | | Procedures | | [phone] | | | | | IA EXC TUMOR | | | | | | | SOFT TISSUE | | | | | | | UPPER | | | | | | | ARM/ELBOW | | | | | | | SUBQ 3+CM | | | | | | | IA EXC SKIN | | | | | [...] | | | [facility] [address] | [address] | (Primary Dx); Soft | | | | [address] | [place] | tissue mass | | | | [place] [address] | [address] | | | | | [phone] | [phone] | | | | | | | [...] interact with your prescription medicines or other pcvl-yhs-pjptonb (OTC) drugs. Some pr escription medicines have [...] REPORT CASE: | [facility] | | [id number]: [facility] [id number]: | | | Tiffanie Valentin Date of [...] mass or lesion | | | isidentified. Java Programmer Analyst sections are submitted as follows: A1 | [...] centralareas with | | | hemorrhage. ([facility]/[id number]) Dominique Ordaz M.D. | | | Electronically signed 11/20/2015 19:55 Performed at | | | [facility]-[address] [address] | | | CLIA#: [id number] ADDENDUM: #1 FLUORESCENCE IN-SITU HYBRIDIZATION | | | (FISH) STUDIES:Source: Block [id number]: Cells of interest Name | | | [...] | | found to harboramplification of the 72p63-19 region, which includes | | | the [...] is | | | determined and a MDM2/RUQ65lcuky is calculated for each case. A | [...] 405Extremity-based Tumors. Am J Surg Pathol 2010; 34:9540-4412. | | | Methodology: Fluorescence in situ hybridization (FISH) for MDM2 | | | geneamplification (using MDM2/CEP12 probes and the Drybarstems | | | Metaferautomated scanning fluorescent microscope) is performed at | | | [place] [address]. Test results should be used in | | | conjunction with other availablelaboratory and clinical information. | | | This test was developed and itsperformance characteristics determined | | | by the Molecular PathologyLaboratory, [facility] | | | Laboratories. It has [...] Cheryl Ortiz MD. | | | Electronically duhsbp9411/23/2015 16:02 Performed at | | | [facility] [facility] [place] [address] [address], [place], | | | [place] [address] CLIA#:[id number]: Unless otherwise | | | specified, a [...] to harbor | | |amplification of the 97k56-83 region, which includes the MDM2 (murine | [...] |Extremity-based Tumors. Am J Surg Pathol 2010; 34:8774-4571. | | | | | |Methodology: Fluorescence in situ hybridization (FISH) for MDM2 gene | | |amplification (using MDM2/CEP12 probes and the Mr Po Medias Metafer | | |automated scanning fluorescent microscope) is performed at [place], | | |[place]. [address]. | | | | | |Test results should be used in conjunction with other available | | |laboratory and clinical information. This test was developed and its | | |performance characteristics determined by the Molecular Pathology | | |Laboratory, [facility]. It has not been approved [...] signed | | |11/23/2015 16:02 Performed at [facility], | | |[address] [place] [address]#: | | |[id number] | | |Microscopic: Unless otherwise specified, a microscopic exam has been performed. | | | | | |Received Date: 11/17/2015 | | |Collection Date: 11/17/2015 | | |Referring Physician: Guille Roldan MD | | |Additional Physician copies: | | + + -------+ + + + + + | Performing | Address | City[facility] | Phone Number | | Organization | | | | + + + + + | REFERENCE LAB | [address] | [place] [address] | [phone] | | [facility] | [address] | | [...]
--- OUTSIDE RECORDS SUMMARY | ~2020-03-22 | XMS | Encounter Summary ---
Demographics + + + | Address | [address] | | | [place] [address] | + + + | Home Phone | | + + + | Preferred Language | Unknown | + + + | Marital Status | | + + + | Restorationism Affiliation | 1027 | + + + | Race | Unknown | + + + | Ethnic Group | Unknown | + + + Author + + + | Author | [facility] | | | and [place] | + + + | Organization | [facility] | | [...] Team Providers + +------+ + | Care Model Maker Scale Name | Role | Phone | + [...] | | | | [place] | [phone] | (Primary Dx) | | | | [address] | | | | | | [phone] | | | +--------+---------+ + + + [...] of your lunch hour to take a [employer]. Walk to the [employer] to get your paper instead of having [...] start an exercise mirna m. Have a sales service professional help you develop a plan that s safe for you. 3641-6013 [employer]. [address] [place] [address]. All righ ts reserved. This information is [...] CORONARIES/CORONARY INTERVENTION; Surgeon: Jozef Hoover MD; Location: [facility] Carpal tunnel release Left 11/19/2007 [...] made to ensure accuracy. However, inadvertent computerized device repair technician errors may be pr esent. documented in [...]
--- OUTSIDE RECORDS SUMMARY | ~2020-03-22 | XMS | Encounter Summary ---
Demographics + + + | Address | [address] | | | [place] [address] | + + + | Home Phone | | + + + | Preferred Language | Unknown | + + + | Marital Status | Single | + + + | Catholic Affiliation | Unknown | + + [...] Team Providers + +------+ + | Care Intelligence Operations Specialist Name | Role | Phone | [...] Pain | Diagnoses | Jay Jay, | Child Care Aide Psych | | Review | | Management | Morbid | ROSIO White | [address] | | | | | obesity with | [address] | | | | | BMI of | [address] | Mailcode: | | | | | 45.0-49.9, | [place], [place] | [facility] | | | | | adult ([facility]) | [address] | for Health | | | | | Depression, | Phone: | and Healing, | | | | | unspecified | [phone] | Building 1, | | | | | depression | Fax: | 15th Floor | | | | | type | [phone] | [place], [place] | | | | | Hypertension | | [address] | | | | | , | | Phone: | | | | | unspecified | | [phone] | | | | | type | | Fax: | | | | | Obstructive | | [phone] | | | | | sleep apnea [...] | [facility] S[facility] | | | with FRUIT II FARMWORKER | | obesity (BMI | [address] | [address] | | | | | >= 40) | Angel Thompson | [address] | | | | | ([facility]) | Rd | Mailcode: | | | | | Procedures | [place], [place] | [place] for | | | | | CONSULT TO | [address] | Health and | | | | | BARIATRIC | Phone: | Healing, | | | | | SURGERY | [phone] | [facility] | | | | | | Fax: | [place], [place] | | | | | | [phone] | [address] | | | | | | | Phone: | | | | | | | [phone] | | | | | | | Fax: | | | | | | | [phone] | + + + + + + + Encounter Details +--------+---------+ + + + | Date | Type | Department | Care Team | Description | +--------+---------+ + + + | 08/19/ | Office | Digestive Health | Cindy Goyal, | Morbid obesity with | | 2019 | Visit | [facility] at [facility] [address] | CAGE FIGHTER [address] | BMI of 45.0-49.9, | | | | [address] | [place], [place] | adult ([facility]) (Primary | | | | Mailcode: Center | [address] | Dx); Depression, | | | | for Health and | | unspecified | | | | Healing, Building 2 | | depression type; | | | | [place], [place] | | Hypertension, | | | | [address] | | unspecified type; | | | [...] go to the 1st floor of the [facility] 2 building and have these labs done. [...] Pre-op Psychological Evaluation: Your referral is at [facility], the Pain Management Office mikayla l [...] request from your PCP to a local children's nursery assistant and have copies of the office visit no nitesh and any test results faxed to us. If you have an established children's nursery assistant, we will need official documentation from them iden tifying your cardiac risk stratification prior to surgery. + Weight Management classes: 2 classes are required in addition to your private appointment with the fountain pen turner. These classes will be scheduled apporoximately 1 [...] weight. + My Chart Sign up for [employer]) so that we can communicate easily back [...] other providers does not guarantee that the [facility] Bariatric Surger y program will deem you a surgical candidate. documented in this encounter Progress Notes Cindy Goyal FNP - 08/19/2019 1:05 PM PDTFormatting of this note might be different f rom the original. 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 Lives at home with daughter an [...] medicated, last lipid panel 06/28/19. Denies CHF, MT, ischemic heart disea se, DVT/PE, or pulmonary [...] response to [facility]. 01/02/15 Interventional Cardiology at [facility]: PROCEDURES PERFORMED: 1. Left Heart Catheterization for [...] and anesthetized with 1% lidocaine. A 6 mosotho sheath was placed into the right radial artery A 6 mosotho pigtail cathether was advanced into the left ventricle, pressures were measured, and left ventriculography was performed. Standard angiography was performed in multiple views using 6 Rwandan tiger catheterto engage the left and right [...] or jaundice. Pt had an EGD in [place] 07/16/18 that she states was followed by a capsule endoscopy a c ouple of months later. The EGD report is in [place], no capsule endoscopy report available. Addit ionally she had an UGI done at the time of her appt with our Foregut team. 06/14/19 Xray Esophagram at [facility]: IMPRESSION: Stomach containing sliding-type large hiatal hernia. 07/16/18 EGD at [facility] ([place], [place]): 07/16/18 Pathology: Abd surgeries: lap oophorectomy [...] bariatric surgery. Records have been reviewed from [facility] and several attempts have been [...] date here on 07/18/19 wit h our fountain pen turner, for a preop weight loss goal of 15 pounds -pt counseled on the possible risk of GERD symptoms after sleeve gastrectomy -pt counseled on the risk of marginal ulcers with RYGB and the need to abstain from NSAIDs post surgery as these increase risk of ulcers #Incisional hernia -reviewed red flags and when to seek care -[facility] #GERD/Hiatal hernia -subjective improvement of the chronic [...] go to the 1st floor of the [facility] 2 building and have these labs done. [...] Pre-op Psychological Evaluation: Your referral is at [facility], the Pain Management Office mikayla l [...] request from your PCP to a local children's nursery assistant and have copies of the office visit no nitesh and any test results faxed to us. If you have an established children's nursery assistant, we will need official documentation from them iden tifying your cardiac risk stratification prior to surgery. + Weight Management classes: 2 classes are required in addition to your private appointment with the fountain pen turner. These classes will be scheduled apporoximately 1 [...] weight. + My Chart Sign up for [employer] so that we can communicate easily back [...] other providers does not guarantee that the [facility] Bariatric Surger y program will deem [...] GWEN Robb, MPH Bariatric Surgery Nurse Practitioner [facility] | [address] | [place], [place] | [address] | documented in this encounter Plan of [...] | | | | s | | ([facility]) Depression, | | | | | [...] results section. | | | | | ([facility]) Depression, | | | | | [...] results section. | | | | | ([facility]) Depression, | | | | | [...] | + + + + + | [facility] | [address] | [place] [address] | | | SERVICES, [place] [facility] | | | | | HEALTH [...] | | | | | determined by [facility] | | | | | | Laboratories. See | | | | | | Compliance Statement B: | | | | | | [employer] Ensin[employer].com/CSPerformed | | | | | | by [facility],[address] | | | | | | [address], [facility] [place] | | | | | | [address] | | | | | | [phone].[employer]. | | | | | | com, [...] + + | [facility] | [address] [facility] | [place], [place] | | | UNIV PTH - INTFC | | [address] | | + + + + + [...] [facility] | | | (ROC ALEXIS) | [facility],[address] | | REG UNIV | | | SERUM | [facility] [place], [place] | | PTH - INTFC | | | | [address] | | | | | | [phone].GILUPIuplab. | | | | | | Jeffrey [...] B: | | | | | | [employer]/CS | | | | + + + + + + + + | Specimen | + + | Blood - Blood | | (substance) | + + + + + + + | Performing | Address | City/State/Zipcode | Phone Number | | Organization | | | | + + + + + | [facility] | [address] | [place], [place] | | | UNIV PTH - INTFC | | [address] | | + + + + + [...] | + + + + + | [facility] | [address] | [place] [address] | | | SERVICES, CORE | PARK [...] | + + + + + | [facility] | [address] | [place] [address] | | | SERVICES, ROSALIA | ABEBA [...] | | | | | determined by [facility] | | | | | | Laboratories. See | | | | | | Compliance Statement B: | | | | | | PWRF.LOCK8/CSPerformed | | | | | | by [facility],[address] | | | | | | [facility] | | | | | | [address] | | | | | | [phone].PWRF. | | | | | | [facility], Jeffrey Armendariz MD, | | | | [...] [facility] | [address] | [place], [place] | | | UNIV PTH - INTFC | | [address] | | + + + + + [...] [facility] | | | | | | Leaky. See | | | | | | Compliance Statement B: | | | | | | PWRF.LOCK8/CSPerformed | | | | | | by [facility],[address] | | | | | | [address], [facility] [place] | | | | | | [address] | | | | | | [phone].PWRF. | | | | | | [facility] centerJeffrey MD, | | | | [...] [facility] | [address] | [place], [place] | | | UNIV PTH - INTFC | | [address] | | + + + + + [...] [facility] | [address] | [place] [address] | | | SERVICES, CENTER FOR | [...] | | | | | determined by [facility] | | | | | | Laboratories. See | | | | | | Compliance Statement B: | | | | | | [employer]/CSPerformed | | | | | | by [facility],[address] | | | | | | [place], [place] | | | | | | [address] | | | | | | [phone].PWRF. | | | | | | Jeffrey [...] [facility] | [address] | [place], [place] | | | UNIV PTH - INTFC | | [address] | | + + + + + [...] + + | [facility] | [address] [facility] [address] | [place] [address] | | | SERVICES, CORE | PARK [...] [facility] | [address] | [place] [address] | | | SERVICES, CORE | ABEBA [...] | + + + + + | [facility] | [address] | [place] [address] | | | SERVICES, SPECIAL | ABEBA [...] | [facility] | | considered for monitoring terminal press operator glycemic control in patients with: | LABORATORY [...] | + + + + + | [facility] | [address] | [place] [address] | | | SERVICES, SPECIAL | PARK [...] | + + + + + | [facility] | [address] | [place] [address] | | | SERVICES, CORE | ABEBA [...] | | | | | determined by [facility] | | | | | | Laboratories. See | | | | | | Compliance Statement B: | | | | | | PWRF.LOCK8/CSPerformed | | | | | | by [facility],[address] | | | | | | [address], [facility] [place] | | | | | | [address] | | | | | | [phone].SAS [employer]ist[employer]. | | | | | | Jeffrey [...] [facility] | [address] | [place], [place] | | | UNIV PTH - INTFC | | [address] | | + + + + + [...] | | | LABORATORY | | | SPANISH | | | SERVICES, | | | [...] NICOLE VALDOVINOS | [address] | [place] [address] | | | [facility] | | | | | HEALTH + [...]
--- OUTSIDE RECORDS SUMMARY | ~2020-03-22 | XMS | Encounter Summary ---
Demographics + + + | Address | [address] | | | [place] [address] | + + + | Home Phone [...] + | Author | [facility] | | | and Maverickana | + + + | Organization | [facility] | | [...] Team Providers + +------+ + | Care Crime Laboratory Analyst Name | Role | Phone | [...] [place] | | | | | [address] | [phone] | | | | | [phone] | | | +--------+ + + + [...] Care Everywhere.FINGER TIP ZANDER BEARDEN, OPEN TREATMENT (PASHTO)documented in this encounter Medications at Time of [...] | | + +--------+ +---------+------+ + | rtqyxpo-vhidrpufin-wluicrlgq | Given | 12/25/20 | 0.5 mLs [...]
--- OUTSIDE RECORDS SUMMARY | ~2020-03-22 | XMS | Encounter Summary ---
Demographics + + + | Address | [address] | | | [place] [address] | + + + | Home Phone [...] + | Organization | [facility] | | | and [...] Providers + +------+ + | Care Manager Flight Operations Name | Role | Phone | + [...] [place] [place] | | | | | [place] | | [address] | | | | | [place] | | Phone: | | | | | 2.1-3CM | | [phone] | | | | | TRUNK,ARM,LE | | Fax: | | | | | [place] | | [phone] | | | | | GRFT | [...] Event | [facility] [place] | [address] | | | | | [address]TRA [address] | [address] | | | | | [address] | | | | | | [place] Interiano | Roc Mcallister, | | | | | | [address] | | | | | | [...] 0951 | | 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
--- OUTSIDE RECORDS SUMMARY | ~2020-03-22 | XMS | Encounter Summary ---
Demographics + + + | Address | [address] | | | [place] [address] | + + + | Home Phone [...] Author + + + | Author | [facility] | + + + | Organization | [facility] | + + + | Address | Unknown | + + + | Phone | Unavailable | + + + Support + + +---------+ + | Name | Relationship | Address | Phone | + + +---------+ + | Marifer Valentin | ECON | Unknown | | + + +---------+ + Care Team Providers + +------+ + | Care Tumor Registrar Name | Role | Phone | + [...] Medical Records | | 2019 | | [place] [facility] [address] | [address] | Review | | | | [address] | [place], [place] | | | | | Mailcode: [place] | [address] | | | | | for Health and | [phone] | | | | | [facility] | | | | | | [place], [place] | | | | | | [address] | | | | | | [phone] | | | +--------+ + + + [...]
--- OUTSIDE RECORDS SUMMARY | ~2020-03-22 | XMS | Encounter Summary ---
Demographics + + + | Address | [address] | | | [place] [address] | + + + | Home Phone [...] Team Providers + +------+ + | Care Pea Viner Mechanic Name | Role | Phone | [...]
--- OUTSIDE RECORDS SUMMARY | ~2020-03-22 | XMS | Encounter Summary ---
Demographics + + + | Address | [address] | | | [place] [address] | + + + | Home Phone | | + + + | Preferred Language | Unknown | + + + | Marital Status | Single | + + + | Anabaptist Affiliation | Unknown | + + + [...] Team Providers + +------+ + | Care Swing Ride Operator Name | Role | Phone | + +------+ + | Stephanie Washington | PCP | | + +------+ + Encounter Details +--------+ + + + + | Date | Type | Department | Care Team | Description | +--------+ + + + + | 07/10/ | Abstract | Digestive Health | Clinic, Surgery | | | 2019 | | [place] at [facility] [address] | | | | | | [address] | | | | | | Mailcode: [place] | | | | | | for Health and | | | | | | Healing, Building 2 | | | | | | [place], [place] | | | | | | [address] | | | | | | [phone] | | | +--------+ + + + [...]
--- OUTSIDE RECORDS SUMMARY | ~2020-03-22 | XMS | Encounter Summary ---
Demographics + + + | Address | [address] | | | [place] [address] | + + + | Home Phone | | + + + | Preferred Language | Unknown | + + + | Marital Status | | + + + | Jainism Affiliation | 1027 | + + + | Race | Unknown | + + + | Ethnic Group | Unknown | + + + Author + + + | Author | [facility] | | | and Maverickana | + + + | Organization | [facility] | [...] Providers + +------+ + | Care Head Baggage Porter Name | Role | Phone | + +------+ + | Peng Fink MD | PCP | | + +------+ + Encounter Details +--------+ + + + + | Date | Type | Department | Care Team | Description | +--------+ + + + + | 07/16/ | [facility] | [facility] | Ezra Green MD | | | 2018 | Encounter | MED CTR MP INTRA OP | [address] | | | | | [address] | [place], [place] | | | | | [place], [place] | [address] | | | | | [address] | [phone] | | | | | [phone] | | | +--------+ + + + [...] You can't be awakened Date Last Reviewed: 08/09/201619999932-6520 [employer]. [address] [place] [address], [place] [address]. All righ ts reserved. This information is [...] | | | cell metaplasia or dysplasia. [facility]:smn:C2NR GROSS DESCRIPTION: | | | A. [...] | | | interpretation were performed by [facility], [address] | | | [place] [address] (Professional Fighter: Jonatan Johns | | | Jareth Hamilton; IA#: [id number]). Diagnostician: Rene Rothman | | | Glenis IRVIN Pathologist Electronically Signed 07/18/2018 | | + + + + +---------+ + + | Performing | Address | City/State/Zipcode | Phone Number | | Organization | | | | + +---------+ + + | [facility] | | | | | [facility] [...]
--- OUTSIDE RECORDS SUMMARY | ~2020-03-22 | XMS | Encounter Summary ---
Demographics + + + | Address | [address] | | | [place] [address] | + + + | Home Phone [...] | Organization | [facility] | | | and Maverickana [...] Providers + +------+ + | Care Psych Coordinator Name | Role | Phone | [...] | | | | | | [place] [address] | | | | | | [phone] | | | +--------+ + + + [...]
--- OUTSIDE RECORDS SUMMARY | ~2020-03-22 | XMS | Encounter Summary ---
Demographics + + + | Address | [address] | | | [place] [address] | + + + | Home Phone [...] Team Providers + +------+ + | Care Medical Accounting Clerk Name | Role | Phone | + [...] Medical Records | | 2019 | | [place] at [facility] [address] | | Review | | | | [address] | | | | | | Mailcode: [place] | | | | | | [facility] and | | | | | | [facility] 2 | | | | | | [place], [place] | | | | | | [address] | | | | | | [phone] | | | +--------+ + + + [...]
--- OUTSIDE RECORDS SUMMARY | ~2020-03-22 | XMS | Encounter Summary ---
Demographics + + + | Address | [address] | | | [place] [address] | + + + | Home Phone | | + + + | Preferred Language | Unknown | + + + | Marital Status | | + + + | Yarsani Affiliation | 1027 | + + + | Race | Unknown | + + + | Ethnic Group | Unknown | + + + Author + + + | Author | [facility] | | | and Maverickana | + + + | Organization | [facility] | | | [...] Team Providers + +------+ + | Care Platform Attendant Name | Role | Phone | [...] SARABJIT NIETO | | | | | [place] | | [address] | | | | | [place] | | Phone: | | | | | 2.1-3CM | | [phone] | | | | | TRUNK,ARM,LE | | Fax: | | | | | G [place] SPLIT | | [phone] | | | | | GRFT | [...] | | | | | [facility] [address] | [address] [place], | | | | | [address] | [place] [address] | | | | | [place] | [phone] | | | | | [phone] | | | +--------+ + + + [...] CORONARIES/CORONARY INTERVENTION; Surgeon: Jozef Hoover MD; Location: [facility] CARDIOVASCULAR LAB Carpal tunnel release Left 11/19/2007 Dr. Trey Morrell Carpal tunnel release Right 10/04/2007 Dr. Trey Morrell Eye surgery Bilateral cataracts with lens implant Skin full graft Right 10/07/2015 Procedure: EXCISION OF RIGHT UPPER BACK BASAL CELL CARCINOMA; Surgeon: Sundeep Lee MD; Location: [facility] [place] ALLERGIES: Review of patient's allergies indicates no [...] appointment: Appointment with Dr. Lee at the [facility] in the [facility] in 1 week as scheduled. [...] Follow-up with Dr. Lee at the [facility], 2nd Floor on 10/13 at [...] number, call our answering service at [phone]. You have received sedation / an anesthetic today. DO NOT drive a vehicle, use alcoholic joseph erages, sign legal documents, take public transportation alone or care for a dependent perso n for the next 24 hours.:[id number]} documented in this encounter Medications at Time [...] | | 65Date of : 1950 CASE: [id number]: Tiffanie | CELLNETI X | | [facility] [id number]: Tiffanie Valentin | | | Date of [...] scar is 0.9cm from the deep margin. Motorcycle Deliverer | | | sections are submitted asfollows: A1 - tips; A2-A8 - entire lesion | | | blocked out. (pam/[id number]) Jackson Vivar M.D. Electronically | | | signed 10/09/2015 13:07 Performed at [facility] | | | [place] [address] CLIA#: | | | [id number]: Unless otherwise specified, a microscopic exam | | | has been performed. Received Date: 10/07/2015Collection Date: | | | 10/07/2015Referring Physician: Jesus IRVIN, Sundeep [facility] | | | Physician copies: | [...] | | |cm from the deep margin. Motorcycle Deliverer sections are submitted as | | |follows: A1 - tips; A2-A8 - entire lesion blocked out. (pam/[id number]) | | | | | | | | | | | | | | | Jackson Vivar M.D. Electronically signed 10/09/2015 13:07 (343) | | |[phone] Performed at [facility] Pathology[address], | | |[place] [address] [facility]#: [id number] | | |Microscopic: Unless otherwise specified, a [...] + + | REFERENCE LAB | [address] | [place] [address] | [phone] | | CELLNETIX | [address] | | [...]
--- OUTSIDE RECORDS SUMMARY | ~2020-03-22 | XMS | Encounter Summary ---
Demographics + + + | Address | [address] | | | [place] [address] | + + + | Home Phone [...] Team Providers + +------+ + | Care Customer Relations Assistant Name | Role | Phone | [...] | Bariatri Surg | | | with TRIPLE VALVE TESTER | | obesity (BMI | [address] | [address] | | | | | >= 40) | Angel Thompson | [place] | | | | | ([facility]) | Rd | Mailcode: | | | | | Procedures | [place], [place] | [place] for | | | | | CONSULT TO | [address] | Health and | | | | | BARIATRIC | Phone: | Healing, | | | | | SURGERY | [phone] | Building 2 | | | | | | Fax: | [place], [place] | | | | | | [phone] | [address] | | | | | | | Phone: | | | | | | | | | | | | | | Fax: | | | | | | | [phone] | + + + + + + [...] | | | (HCC) | Rd | [place], [place] | | | | | Procedures | [facility] [place] | [address] | | | | | CONSULT TO | [address] | Phone: | | | | | CARDIOLOGY | Phone: | [phone] | | | | | | [phone] | Fax: | | | | | | Fax: | [phone] | | | | | | [phone] | | +--------+--------+ + + + + [...] | | | | | Tri | [facility] | | | | | | [place] [address] | Health and | | | | | | Phone: | Healing, | | | | | | [phone] | Building 2 | | | | | | Fax: | [place], [place] | | | | | | [phone] | [address] | | | | | | | Phone: | | | | | | | [phone] | | | | | | | Fax: | | | | | | | [phone] | +--------+--------+ + + + + Encounter Details +--------+---------+ + + + | Date | Type | Department | Care Team | Description | +--------+---------+ + + + | 06/14/ | Office | Digestive Health | Marita Hadley, | Hiatal hernia with | | 2019 | Visit | Center at [facility] [address] | MD [address] | GERD (Primary Dx); | | | | [address] | [place], [place] | Severe obesity (BMI | | | | Mailcode: Center | [address] | >= 40) ([facility]) | | | | for Health and | [phone] | | | | | Healing, Building 2 | | | | | | [place], [place] | | | | | | [address] | | | | | | [phone] | | | +--------+---------+ + + + [...] follow-up with Dr. Hadley in six months. [facility] Foregut and Bariatric Surgery ClinicElectronically signed by Ly Vo MD at 06/14 4:49 PM PDT documented in this encounter Progress Notes Ly Vo MD - 06/14/2019 2:50 PM PDT [facility] Department of Surgery Red Surgery Clinic [...] Family History: Reviewed, notable for history of [place] in father. 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 Lives at home with daughter and [...] 20 mg by mouth once daily. [facility] 30 to 60 minutes before meals simvastatin [...] with the above plan. Ly Vo MD [facility] Department of Surgery PGY-2 | [id number] STAFF: I saw and evaluated the patient. I agree with the findings and the plan of care as kylie armendariz in the resident s note. Marita Hadley MD [facility] [address] [facility] Mailcode: [place] [address] documented in this encounter Plan of Treatment Not on filedocumented as of this encounter Visit Diagnoses + + | Diagnosis | + + | Hiatal hernia with GERD - Primary | + + | Severe obesity (BMI >= 40) ([facility]) Morbid obesity | + + documented in this encounter
--- OUTSIDE RECORDS SUMMARY | ~2020-03-22 | XMS | Encounter Summary ---
Demographics + + + | Address | [address] | | | [place] [address] | + + + | Home Phone | | + + + | Preferred Language | Unknown | + + + | Marital Status | | + + + | Yarsanism Affiliation | 1027 | + + + | Race | Unknown | + + + | Ethnic Group | Unknown | + + + Author + + + | Author | [facility] | | | and [place] | + + + | Organization | [facility] | | | and [...] Team Providers + +------+ + | Care Joint Machine Operator Name | Role | Phone [...] [place] | | | | | [address] | [phone] | | | | | [phone] | | | +--------+ + + + [...] Care Everywhere.FINGER TIP Z[place]ER BEARDEN, OPEN TREATMENT ([place])documented in this encounter Medications at Time of [...] | | + +--------+ +---------+------+ + | tdmkjsr-hbtxkxmebg-ystnafphx | Given | 12/25/20 | 0.5 mLs [...]
--- OUTSIDE RECORDS SUMMARY | ~2020-03-22 | XMS | Encounter Summary ---
Demographics + + + | Address | [address] | | | [place] [address] | + + + | Home Phone [...] Team Providers + +------+ + | Care Property Management Supervisor Name | Role | Phone [...] | | Hernia, | Stephanie Lam, | [facility] [address] | | | | | hiatal | [place] [address] | | | | | | [address] | Mailcode: | | | | | | Tri, | [facility] | | | | | | [place] [address] | [facility] and | | | | | | Phone: | Healing, | | | | | | [phone] | Building 2 | | | | | | Fax: | [place], [place] | | | | | | [phone] | [address] | | | | | | | Phone: | | | | | | | [phone] | | | | | | | Fax: | | | | | | | [phone] | +--------+--------+ + + + + Encounter Details +--------+---------+ + + + | Date | Type | Department | Care Team | Description | +--------+---------+ + + + | 08/19/ | Office | [facility] Physical | Emily Joyner, | Severe obesity (HCC) | | 2019 | Visit | Therapy Services at | PT,DPT [address] | (Primary Dx) | | | | [facility] | Ave [facility] [place] | | | | | [address] | [address] | | | | | Mailcode: CH3P | | | | | | [facility] | | | | | | and [place], | | | | | | [facility] | | | | | | Floor [place], [place] | | | | | | [address] | | | | | | [phone] | | | +--------+---------+ + + + [...] care for t he certification period documented. [facility] PHYSICAL THERAPY EVALUATION Past [...] strength training goals with the bariatric surg udstin program. Instructed to start with 2x8 of [...] Moderate - Moderate complexity Complexity: Moderate - 62325 The patient requires services that can be [...] change in their status. Emily Joyner, PT,DPT [facility] PHYSICAL THERAPY SERVICES AT [facility] Scheduled Appointment time: 2:30 PM The patient was seen for a total of 45 minutes of treatment time. 45 minutes was in direct contact care as described above and on completed flow sheets. Treatment Interventions duration in minutes: Procedure:Physical Therapy Evaluation and Ther apeutic Activities 15 min Authorization information for first visit and progress reports Procedure Codes: Re-evaluation 86593, Therapeutic Exercise 49008, Manual Therapy 90786, Th erapeutic Activities 30866, Neuromuscular Reeducation 50869, Gait Training 85216 and Self-ca re ADL 81740 Minutes per session: 45 Total number of visits: 1 visit only Frequency: 1 visit only Duration: n/a (must exceed or match Medicare service period reques t) Service period from: 08/19/2019 to: 08/19/2019 (Medicare must match duration or be no gre ater than 90 days if proposed duration is greater than 3 months) Start of care: 08/19/2019 Referral information Authorizing Provider: ANGELI BARRERA [[id number]] Onset/Referral Date: 07/08/19 Primary/Referral Diagnosis: E66.01 Severe [...] | + +--------+ + + + | [facility] | Routin | 08/19/2019 | Severe obesity | | | ACTIVITIES | e | 3:39 PM | ([facility]) | | | | | PDT | | | + +--------+ + + + documented in this encounter Visit Diagnoses + + | Diagnosis | + + | Severe obesity (HCC) - Primary Morbid obesity | + + documented in this encounter
--- OUTSIDE RECORDS SUMMARY | ~2020-03-22 | XMS | Encounter Summary ---
Demographics + + + | Address | [address] | | | [place] [address] | + + + | Home Phone [...] Providers + +------+ + | Care Director Investment Banking Name | Role | Phone | + +------+ + PCP | Unavailable | + +------+ + Encounter Details +--------+ + + + + | Date | Type | Department | Care Team | Description | +--------+ + + + + | 12/12/ | Quality And Reliability Engineer | Digestive Health | Marita Hadley, | Hiatal hernia with | | 2019 | | Center at [facility] [address] | MD [address] | GERD and esophagitis | | | | [address] | [place], [place] | (Primary Dx) | | | | Mailcode: [place] | [address] | | | | | for Health and | [phone] | | | | | [facility], [facility] 2 | | | | | | [place], [place] | | | | | | [address] | | | | | | [phone] | | | +--------+ + + + [...] + + + | EXAM: Esophagram with real estate closing coordinator radiograph HISTORY: Hiatal hernia | [facility] | [...] Note | + + | Service Account, Pitadela Res In Interface - 06/14/2019 2:39 PM PDT EXAM: Esophagram | | with real estate closing coordinator radiograph HISTORY: Hiatal hernia with GERD COMPARISON: [...]
--- OUTSIDE RECORDS SUMMARY | ~2020-03-22 | XMS | Encounter Summary ---
Demographics + + + | Address | [address] | | | [place] [address] | + + + | Home Phone | | + + + | Preferred Language | Unknown | + + + | Marital Status | | + + + | Jain Affiliation | 1027 | + + + | Race | Unknown | + + + | Ethnic Group | Unknown | + + + Author + + + | Author | and Services [facility] | | | and [place] | + + + | Organization | and [facility] | | | and [place] | [...] Team Providers + +------+ + | Care R D Intern Name | Role | Phone | + [...] | | | left upper | | [address] | | | | | extremity, | | Phone: | | | | | including | | [phone] | | | | | shoulder | | Fax: | | | | | Procedures | | [phone] | | | | | DE EXC TUMOR | | | | | | | SOFT TISSUE | | | | | | | UPPER | | | | | | | ARM/ELBOW | | | | | | | SUBQ 3+CM | | | | | | | DE EXC SKIN | | | | | [...] | | | INTRA MAIN [address] | [facility] [address] | LEFT BASAL CELL | | | | [address] | [place] | CARCINOMA EXCISION | | | | [place] | | | | | | [phone] | [phone] | | | | | | | [...] interact with your prescription medicines or other brrf-ijp-bmdyqmf (OTC) drugs. Some pr escription medicines have [...] REPORT CASE: | [facility] X | | [id number]: Tiffanie Leighathology Report [id number]: | | | Tiffanie Valentin Date of [...] mass or lesion | | | isidentified. Group Tester sections are submitted as follows: A1 | [...] - centralareas with | | | hemorrhage. ([id number]) Dominique Ordaz M.D. | | | Electronically signed 11/20/2015 19:55 Performed at | | | [facility], [facility] [place] [address] | | | CLIA#: [id number] ADDENDUM: #1 FLUORESCENCE IN-SITU HYBRIDIZATION | | | (FISH) STUDIES:Source: Block [id number]: Cells of interest Name | | | [...] | | found to harboramplification of the 01c15-17 region, which includes | | | the [...] is | | | determined and a MDM2/CLF18uglyo is calculated for each case. A | [...] 405Extremity-based Tumors. Am J Surg Pathol 2010; 34:5404-2350. | | | Methodology: Fluorescence in situ hybridization (FISH) for MDM2 | | | geneamplification (using MDM2/CEP12 probes and the Voyats | | | Metaferautomated scanning fluorescent microscope) is performed at | | | [place]. [address]. Test results should be used in | [...] Cheryl Ortiz MD. | | | Electronically efrtgp3411/23/2015 16:02 Performed at | | | [facility],[address] [place] [address], [place], | | | [place] [address] CLIA#:[id number]: Unless otherwise | | | specified, a microscopic exam has been performed. Received Date: | | | 01/26/2016Collection Date: 11/17/2015Referring Physician: Jamar IRVIN, | | | Guille [facility] Physician copies: | | | | | | | | | | | |Several studies have shown that molecular analysis refines the | | |classification of lipomatous tumors and is useful to discriminate | | |lipomas from atypical lipomatous tumor/well-differentiated liposarcoma | | |(ALT/WDL). Well-differentiated liposarcomas have been found to harbor | | |amplification of the 37p61-75 region, which includes the MDM2 (murine | [...] |Extremity-based Tumors. Am J Surg Pathol 2010; 34:8713-0636. | | | | | |Methodology: Fluorescence in situ hybridization (FISH) for MDM2 gene | | |amplification (using MDM2/CEP12 probes and the Voyats Metafer | | |automated scanning fluorescent microscope) is performed at [facility], | | |[place]. [address]. | | | | | |Test results should be used in conjunction with other available | | |laboratory and clinical information. This test was developed and its | | |performance characteristics determined by the Molecular Pathology | | |Laboratory, [facility]. It has not been approved [...] signed | | |11/23/2015 16:02 Performed at [facility], | | |[facility] [address] Schaef[address] StreetIA#: | | |[id number] | | |Microscopic: Unless otherwise specified, a microscopic exam has been performed. | | | | | |Received Date: 11/17/2015 | | |Collection Date: 11/17/2015 | | |Referring Physician: Jamar IRVIN, Guille [place] | | |Additional Physician copies: | | + + -------+ + + + + + | Performing | Address | City/State/[facility] Centercode | Phone Number | | Organization | | | | + + + + + | REFERENCE LAB | [address] | [place] [address] | [phone] | | [facility] | [address] | | [...]
--- OUTSIDE RECORDS SUMMARY | ~2020-03-22 | XMS | Encounter Summary ---
Demographics + + + | Address | [address] | | | [place] [address] | + + + | Home Phone | | + + + | Preferred Language | Unknown | + + + | Marital Status | | + + + | Voodoo Affiliation | 1027 | + + + | Race | Unknown | + + + | Ethnic Group | Unknown | + + + Author + + + | Author | [facility] | | | and [place] | + + + | Organization | [facility] | | | [...] Team Providers + +------+ + | Care Agricultural Equipment Salesperson Name | Role | Phone | + [...] | | | | [place] | [phone] | (Primary Dx) | | | | [address] | | | | | | [phone] | | | +--------+---------+ + + + [...] of your lunch hour to take a [employer]. Walk to the [employer] to get your paper instead of having [...] start an exercise mirna m. Have a travel professional help you develop a plan that s safe for you. 9171-6852 [employer]. [address] [place] [address]. All righ ts reserved. This information is [...] CORONARIES/CORONARY INTERVENTION; Surgeon: Jozef Hoover MD; Location: [facility] CARDIOVASCULAR LAB Carpal tunnel release [...] made to ensure accuracy. However, inadvertent computerized orthodontic treatment coordinator errors may be pr esent. documented in [...]
--- OUTSIDE RECORDS SUMMARY | ~2020-03-22 | XMS | Encounter Summary ---
Demographics + + + | Address | [address] | | | [place] [address] | + + + | Home Phone | | + + + | Preferred Language | Unknown | + + + | Marital Status | Single | + + + | Spiritism Affiliation | Unknown | + + + [...] Team Providers + +------+ + | Care Doggy Daycare Activities Director Name | Role | Phone | [...] | Mailcode: | | | | | ([facility]) | [place], [place] | Center for | | | | | Procedures | [address] | Health and | | | | | PHYSICAL | Phone: | Healing, | | | | | THERAPY | [phone] | Building 2 | | | | | REFERRAL | Fax: | [place], [place] | | | | | | [phone] | [address] Phone: | | | | | | | [phone] | | | | | | | Fax: | | | | | | | [phone] | + +--------+ + + + + Encounter Details +--------+ + + + + | Date | Type | Department | Care Team | Description | +--------+ + + + + | 07/08/ | Loom Setter | Digestive Health | Cindy Goyal, | Severe obesity (BMI | | 2019 | | Center at [facility] [address] | VALVE REPAIRER RECLAMATION [address] | >= 40) ([facility]) | | | | [address] | [place], [place] | (Primary Dx) | | | | Mailcode: [place] | [address] | | | | | for Health and | [phone] | | | | | [facility], [facility] 2 | | | | | | [place], [place] | | | | | | [address] | | | | | | | [...]
--- OUTSIDE RECORDS SUMMARY | ~2020-03-22 | XMS | Encounter Summary ---
Demographics + + + | Address | [address] | | | [place] [address] | + + + | Home Phone [...] + + | Author | [facility] | | | and [place] | + + + | Organization | [facility] | | | and [place] | [...] Team Providers + +------+ + | Care Inter Com Servicer Name | Role | Phone | + [...] [facility] IP | [id number] [facility] [address] | | | | | GENERIC CONV [address] | [address] | | | | | [place], | [address] | | | | | [place] [address] | | | | | | [phone] | | | +--------+ + + + [...]
--- OUTSIDE RECORDS SUMMARY | ~2020-03-22 | XMS | Encounter Summary ---
Demographics + + + | Address | [address] | | | [place] [address] | + + + | Home Phone [...] | Organization | [facility] | | | and [...] Team Providers + +------+ + | Care Mirror Polisher Name | Role | Phone | [...] | | | | | | | NH CATH | | | | | | | PLACE/CORON | | | | | | | ANGIO, IMG | | | | | | | SUPER/INTERP | | | | | | | ,W LEFT | | | | | | | HEART | | | | | | | VENTRICULOGR | | | | | | | APHY NH PRQ | | | | | | | TRLUML | | | | | | | CORONARY | | | | | | | STENT | | | | | | | W/ANGIO ONE | | | | | | | ART/BRNCH | | | | | | | NH PRQ | | | | | | [...] + + | 01/02/ | Hospital | [facility] | Kiko Jozef | | | 2015 | Encounter | [facility] CV | MD Janette [address] | | | | | INTRA [address] | [place] | | | | | [place] | [address] | | | | | [address] | [phone] | | | | | [phone] | | | +--------+ + + + [...] Physician Discharge Summary Patient ID: Tiffanie Valentin [id number] y.o. 1950 Admit date: 01/02/2015 Discharge date and time: No discharge date for patient encounter. Admitting Physician: Jozef Hoover MD Discharge Physician: Jozef Hoover MD [facility] Interventional Cardiology [place], [place] Admission Diagnoses: Nonspecific abnormal unspecified cardiovascular [...] present. Please notify your MD and/or your Fabrication Machine Operator if any of the follo [...] + | Jozef Hoover MD 01/02/2015 9:22 [facility] | [facility] | | [facility] CARDIAC CATHETERIZATION REPORT PATIENT | | | NAME: | | | Tiffanie Valentin DATE OF : | | | 1950 MEDICAL | | | RECORD NUMBER: [id number] | | | DATE OF PROCEDURE: | | | 01/02/2015 FACILITY: | | | [facility] | | | [place], [place] | | | | | | PRIMARY CARE PROVIDER: | | | Peng Fink PRIMARY VENEER STAPLER: | | | Jozef Hoover MD [facility] Interventional Cardiology | | | [place], [place] PLANT FACILITIES TECHNICIAN: | | | Dr. Jozef Hoover MD | | | [facility] PRE-PROCEDURE DIAGNOSIS: | | | abnormal [...] and anesthetized with 1% lidocaine. A 6 spanish sheath was | | | placed into the right radial artery A 6 spanish pigtail cathether was | | | advanced into the left ventricle, pressures were measured, and left | | | ventriculography was performed. Standard angiography was performed | | | in multiple views using 6 Maori tiger catheter to engage the | | [...] Jozef Siddiqui | | | MD Kiko [facility] Interventional Cardiology Jose Jaydon | | | [place] 01/02/2015 9:20 | | + + + [...] | | | | 324 mg, Oral, MORTGAGE BROKER, Starting | | 15 7:29 | | [...] | mLs | | | | Intravenous, MORTGAGE BROKER, Starting | | AM PDT | | [...]
--- OUTSIDE RECORDS SUMMARY | ~2020-03-22 | XMS | Encounter Summary ---
Demographics + + + | Address | [address] | | | [place] [address] | + + + | Home Phone | | + + + | Preferred Language | Unknown | + + + | Marital Status | Single | + + + | Methodist Affiliation | Unknown | + + + [...] Team Providers + +------+ + | Care Program Consultant Name | Role | Phone | [...] | | | | | | | [place], [place] | | | | | | | [address] | | | | | | | Phone: | | | | | | | [phone] | | | | | | | Fax: | | | | | | | [phone] | + +--------+ + + + + Encounter Details +--------+---------+ + + + | Date | Type | Department | Care Team | Description | +--------+---------+ + + + | 12/20/ | Office | Digestive Health | Marita Hadley, | Gastroesophageal | | 2020 | Visit | Center at [facility] [address] | MD [address] | reflux disease, | | | [address] | [place], [place] | esophagitis presence | | | | Mailcode: Center | [address] | not specified | | | | for Health and | [phone] | (Primary Dx); Morbid | | | | [facility] 2 | | obesity with BMI of | | | | [place], [place] | | 45.0-49.9, adult | | | | [address] | | ([facility]) | | | | [phone] | | | +--------+---------+ + + + [...] Name: Tiffanie Valentin : 1950 Medical Record: [id number] ID: Tiffanie Valentin is a 69-year-old female [...] History Narrative 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 Lives at home with daughter an [...] the fellow s note. Marita Hadley MD CENTER AT [facility] [address] Mailcode: [place] [address] documented in this encounter Plan of Treatment Not on filedocumented as of this encounter Visit Diagnoses + + | Diagnosis | + + | Gastroesophageal reflux disease, esophagitis presence not specified - Primary | + + | Morbid obesity with BMI of 45.0-49.9, adult ([facility]) | + + documented in this encounter
--- OUTSIDE RECORDS SUMMARY | ~2020-03-22 | XMS | Clinical Summary ---
Demographics + + + | Address | [address] | | | [place] [address] | + + + | Home Phone [...] Author + + + | Author | [facility] | + + + | Organization | [facility] | + + + | Address | Unknown | + + + | Phone | Unavailable | + + + Support + + +---------+ + | Name | Relationship | Address | Phone | + + +---------+ + | Marifer Valentin | ECON | Unknown | | + + +---------+ + Care Team Providers + +------+ + | Care Pipeline Gang Supervisor Name | Role | Phone | + +------+ + | Stephanie [place] | PCP | | + +------+ + Source Comments NICOLE is fully live on both [facility] Ambulatory and [facility] InPatient.[facility] Allergies No Known Allergies Medications + [...] RE PPO | | sent | | [place], | | | | | | | | [place] [address] | | + +--------+ +--------+ + +------+ [...] fabian | | | 8 (Home) | [address] | + +--------+ +--------+ + +
--- OUTSIDE RECORDS SUMMARY | ~2020-03-22 | XMS | Encounter Summary ---
Demographics + + + | Address | [address] | | | [place] [address] | + + + | Home Phone [...] Providers + +------+ + | Care Leather Stamper Name | Role | Phone | + [...]
--- OUTSIDE RECORDS SUMMARY | ~2020-03-22 | XMS | Encounter Summary ---
Demographics + + + | Address | [address] | | | [place] [address] | + + + | Home Phone [...] Team Providers + +------+ + | Care Dot Etcher Apprentice Name | Role | Phone | [...] Pain | Diagnoses | Jay Jay, | Line Controller Psych | | Review | | Management | Morbid | ROSIO White | [address] | | | | | obesity with | [address] | | | | | BMI of | [address] | Mailcode: | | | | | 45.0-49.9, | [place], [place] | [facility] | | | | | adult ([facility]) | [address] | for Health | | | | | Depression, | Phone: | and Healing, | | | | | unspecified | [phone] | Building 1, | | | | | depression | Fax: | 15th Floor | | | | | type | [phone] | [place], [place] | | | | | Hypertension | | [address] | | | | | , | | Phone: | | | | | unspecified | | [phone] | | | | | type | | Fax: | | | | | Obstructive | | [phone] | | | | | sleep apnea [...] | Bariatri Surg | | | with TIRE SERVICE TECHNICIAN | | obesity (BMI | [address] | [address] | | | | | >= 40) | Angel Thompson | [address] | | | | | ([facility]) | Rd | Mailcode: | | | | | Procedures | [place], [place] | [place] for | | | | | CONSULT TO | [address] | Health and | | | | | BARIATRIC | Phone: | Healing, | | | | | SURGERY | [phone] | [facility] 2 | | | | | | Fax: | [place], [place] | | | | | | [phone] | [address] | | | | | | | Phone: | | | | | | | [phone] | | | | | | | Fax: | | | | | | | [phone] | + + + + + + + Encounter Details +--------+---------+ + + + | Date | Type | Department | Care Team | Description | +--------+---------+ + + + | 08/19/ | Office | Digestive Health | Cindy Goyal, | Morbid obesity with | | 2019 | Visit | Center at [facility] | LINUX SERVER ENGINEER [address] | BMI of 45.0-49.9, | | | | [address] | [place], [place] | adult ([facility]) (Primary | | | | Mailcode: Center | [address] | Dx); Depression, | | | | for Health and | | unspecified | | | | Healing, Building 2 | | depression type; | | | | [place], [place] | | Hypertension, | | | | [address] | | unspecified type; | | | [...] go to the 1st floor of the [facility] 2 building and have these labs done. [...] Pre-op Psychological Evaluation: Your referral is at [facility], the Pain Management Office mikayla l call [...] request from your PCP to a local stone cutter and have copies of the office visit no nitesh and any test results faxed to us. If you have an established stone cutter, we will need official documentation from them iden tifying your cardiac risk stratification prior to surgery. + Weight Management classes: 2 classes are required in addition to your private appointment with the industrial twisting machine operator. These classes will be scheduled apporoximately [...] weight. 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 Lives at home with daughter an [...] NM Myocardial Perfusion Scan Pharmacologic at the [facility]: FINAL IMPRESSION: 1. Abnormal study. [...] response to Lexiscan. 01/02/15 Interventional Cardiology at [place]: PROCEDURES PERFORMED: 1. Left Heart Catheterization for [...] and anesthetized with 1% lidocaine. A 6 turkish sheath was placed into the right radial artery A 6 turkish pigtail cathether was advanced into the left ventricle, pressures were measured, and left ventriculography was performed. Standard angiography was performed in multiple views using 6 Ivorian tiger catheterto engage the left and right [...] or jaundice. Pt had an EGD in [place] 07/16/18 that she states was followed by a capsule endoscopy a c ouple of months later. The EGD report is in [place], no capsule endoscopy report available. Addit ionally she had an UGI done at the time of her appt with our Foregut team. 06/14/19 Xray Esophagram at [facility]: IMPRESSION: Stomach containing sliding-type large hiatal hernia. 07/16/18 EGD at [facility] ([place], [place]): 07/16/18 Pathology: Abd surgeries: lap oophorectomy [...] bariatric surgery. Records have been reviewed from [facility] and several attempts have been made to [...] date here on 07/18/19 wit h our industrial twisting machine operator, for a preop weight loss goal of 15 pounds -pt counseled on the possible risk of GERD symptoms after sleeve gastrectomy -pt counseled on the risk of marginal ulcers with RYGB and the need to abstain from NSAIDs post surgery as these increase risk of ulcers #Incisional hernia -reviewed red flags and when to seek care -[facility]GERD/Hiatal hernia -subjective improvement of the chronic [...] go to the 1st floor of the [facility] 2 building and have these labs done. [...] Pre-op Psychological Evaluation: Your referral is at [facility], the Pain Management Office mikayla l call [...] request from your PCP to a local stone cutter and have copies of the office visit no nitesh and any test results faxed to us. If you have an established stone cutter, we will need official documentation from them iden tifying your cardiac risk stratification prior to surgery. + Weight Management classes: 2 classes are required in addition to your private appointment with the industrial twisting machine operator. These classes will be scheduled apporoximately [...] weight. + My Chart Sign up for Integrated Medical Managementt so that we can communicate easily back [...] other providers does not guarantee that the [facility] Bariatric Surger y program will deem you [...] Robb, MPH Bariatric Surgery Nurse Practitioner [facility] | [address] | [place], [place] | [address] | documented in this encounter Plan of [...] | | | | s | | ([facility]) Depression, | | | | | | [...] results section. | | | | | ([facility]) Depression, | | | | | | [...] results section. | | | | | ([facility]) Depression, | | | | | | [...] | + + + + + | [facility] | [address] | [place] [address] | | | SERVICES, [place] FOR | | | | | HEALTH [...] | | | | | determined by [facility] | | | | | | Laboratories. See | | | | | | Compliance Statement B: | | | | | | [employer] Web Serviceslab.com/CSPerformed | | | | | | by [employer],[address] | | | | | | [place], [facility],[place] | | | | | | [address] | | | | | | [phone].[employer] Web Serviceslab. | | | | | | com, [...] + | [facility] | [address] [facility] [address] [address] | [place], [place] | | | UNIV PTH - INTFC | | [address] | | + + + + + [...] [facility] | | | (ROC ALEXIS) | [facility],[address] | | REG UNIV | | | SERUM | [facility] [place], [place] | | PTH - INTFC | | | | [address] | | | | | | [phone].Microvi Biotechnologiesuplab. | | | | | | Jeffrey [...] B: | | | | | | The Social [employer] SL/CS | | | | + + + + + + + + | Specimen | + + | Blood - Blood | | (substance) | + + + + + + + | Performing | Address | City/State/Zipcode | Phone Number | | Organization | | | | + + + + + | [facility] | [address] | [place], [place] | | | UNIV PTH - INTFC | | [address] | | + + + + + [...] | + + + + + | [facility] | [address] | [place] [address] | | | SERVICES, CORE | PARK [...] + + + + + | [facility] | [address] | [place] [address] | | | SERVICES, ROSALIA | ABEBA [...] | | | | | determined by [facility] | | | | | | Laboratories. See | | | | | | Compliance Statement B: | | | | | | [employer] Media/CSPerformed | | | | | | by [facility],[address] | | | | | | [facility] | | | | | | [address] | | | | | | [phone].[employer]. | | | | | | [facility], Jeffrey Armendariz MD, | | | [...] [facility] | [address] | [place], [place] | | | UNIV PTH - INTFC | | [address] | | + + + + + [...] [facility] | | | | | | [employer] See | | | | | | Compliance Statement B: | | | | | | [employer].i[employer] Media/CSPerformed | | | | | | by [employer],[address] | | | | | | [place], [facility],[place] | | | | | | [address] | | | | | | [phone].[employer]. | | | | | | primary children's hospitalJeffrey MD, | | | | | [...] [facility] | [address] | [place], [place] | | | UNIV PTH - INTFC | | [address] | | + + + + + [...] [facility] | [address] | [place] [address] | | | SERVICES, CENTER FOR | [...] | | | | | determined by [employer] | | | | | | Laboratories. See | | | | | | Compliance Statement B: | | | | | | The Social Coin SL/CSPerformed | | | | | | by [employer],[address] | | | | | | [place], [place] | | | | | | [address] | | | | | | [phone].[employer] Systems. | | | | | | Jeffrey [...] [facility] | [address] | [place], [place] | | | UNIV PTH - INTFC | | [address] | | + + + + + [...] + | [facility] | [address] | [place] [address] | | | SERVICES, CORE | PARK [...] [facility] | [address] | [place] [address] | | | SERVICES, CORE | ABEBA [...] | + + + + + | [facility] | [address] | [place] [address] | | | SERVICES, SPECIAL | ABEBA [...] | [facility] | | considered for monitoring computer terminal operator glycemic control in patients with: | [...] + + + + + | [facility] | [address] | [place] [address] | | | SERVICES, SPECIAL | PARK [...] + + + + + | [facility] | [address] | [place] [address] | | | SERVICES, CORE | ABEBA [...] | | | | | determined by [employer] | | | | | | Laboratories. See | | | | | | Compliance Statement B: | | | | | | [employer].iPh[employer] Media/CSPerformed | | | | | | by [employer],[address] | | | | | | [place] [place], [facility],[place] | | | | | | [address] | | | | | | [phone].HybridSite Web Serviceslab. | | | | | | eJffrey macias MD, | | | | | [...] [facility] | [address] | [place], [place] | | | UNIV PTH - INTFC | | [address] | | + + + + + [...] | | | LABORATORY | | | GUINEAN | | | SERVICES, | | | [...] NICOLE VALDOVINOS | [address] | [place] [address] | | | [facility] | | | | | HEALTH + [...]
--- OUTSIDE RECORDS SUMMARY | ~2020-03-22 | XMS | Encounter Summary ---
Demographics + + + | Address | [address] | | | [place] [address] | + + + | Home Phone [...] Team Providers + +------+ + | Care Locomotive Mechanic Apprentice Name | Role | Phone | [...] 2019 | on | Center at [facility] [address] | MELT HOUSE CENTRIFUGAL OPERATOR [address] | | | | | [address] | [place], [place] | | | | | Mailcode: Center | [address] | | | | | for Health and | | | | | | [facility] | | | | | | [place], [place] | | | | | | [address] | | | | | | | [...]
--- OUTSIDE RECORDS SUMMARY | ~2020-03-22 | XMS | Encounter Summary ---
Demographics + + + | Address | [address] | | | [place] [address] | + + + | Home Phone | | + + + | Preferred Language | Unknown | + + + | Marital Status | | + + + | Sikh Affiliation | 1027 | + + + | Race | Unknown | + + + | Ethnic Group | Unknown | + + + Author + + + | Author | [facility] | | | and Maverickana | + + + | Organization | [facility] | | | and Maverickana [...] Team Providers + +------+ + | Care Bander And Cellophaner Machine Name | Role | Phone | + [...] | [facility] [place] | [address] | | | | | [address] | [address] | | | | | [address] | [address] | | | | | [place] | | | | | | [phone] | | | +--------+ + + + [...] #: | | | | | | [id number] : | | | | | | 1950 | | | | | | | | | | | | Received:07/20/2005 | | | | | | Accession #: | | | | | | [id number] Clinician: | | | | | | [...] SNOMED | | | | | | T-25227, | | | | | | T-75598, [id number], | | | | | | M-57389, T-1A110 | | | | | | [...] dimensions. | | | | | | Technical Artist sections | | | | | | [...] + + | REFERENCE LAB | [address] | [place] [address] | [phone] | | [facility] | 200 | | | + + + + + | [facility] - | [address] [place] [address] NE | [place] [address] | [phone] | | [place] | | | | + + + + + documented in this encounter Visit Diagnoses Not on filedocumented in this encounter
--- OUTSIDE RECORDS SUMMARY | ~2020-03-22 | XMS | Encounter Summary ---
Demographics + + + | Address | [address] | | | [place] [address] | + + + | Home Phone | | + + + | Preferred Language | Unknown | + + + | Marital Status | | + + + | Mandaen Affiliation | 1027 | + + + | Race | Unknown | + + + | Ethnic Group | Unknown | + + + Author + + + | Author | [facility] | | | and Maverickana | + + + | Organization | [facility] | | [...] Team Providers + +------+ + | Care Insurance Rater Name | Role | Phone | + [...] | | | | | [address] | [place] | | | | | [place] | [address] | | | | | [address] | | | | | | [phone] | | | +--------+ + + + [...] 07/16/18 1640 by | | jayl | cisp-kym-xoqizt catheter system; | Mary Carmen Smith, | aRdha Langley RN | | IV | 20 [...]
--- OUTSIDE RECORDS SUMMARY | ~2020-03-22 | XMS | Encounter Summary ---
Demographics + + + | Address | [address] | | | [place] [address] | + + + | Home Phone [...] Team Providers + +------+ + | Care Acoustical Tile Carpenters Supervisor Name | Role | Phone | [...] Bariatri Surg | | | with FIRE CONTROL TECHNICIAN G | | obesity (BMI | [address] | [address] | | | | | >= 40) | Angel Thompson | [address] | | | | | ([facility] | Rd | Mailcode: | | | | | Procedures | [place], [place] | [place] for | | | | | CONSULT TO | [address] | Health and | | | | | BARIATRIC | Phone: | Healing, | | | | | SURGERY | [phone] | Building 2 | | | | | | Fax: | [place], [place] | | | | | | [phone] | [address] | | | | | | | Phone: | | | | | | | | | | | | | | Fax: | | | | | | | [phone] | + + + + + + [...] | | | (HCC) | Rd | [place], [place] | | | | | Procedures | [facility] [place] | [address] | | | | | CONSULT TO | [address] | Phone: | | | | | CARDIOLOGY | Phone: | [phone] | | | | | | [phone] | Fax: | | | | | | Fax: | [phone] | | | | | | [phone] | | +--------+--------+ + + + + [...] | | | | | Tri | [facility] | | | | | | [place] [address] | Health and | | | | | | Phone: | Healing, | | | | | | [phone] | Building 2 | | | | | | Fax: | [place], [place] | | | | | | [phone] | [address] | | | | | | | Phone: | | | | | | | [phone] | | | | | | | Fax: | | | | | | | [phone] | +--------+--------+ + + + + Encounter Details +--------+---------+ + + + | Date | Type | Department | Care Team | Description | +--------+---------+ + + + | 06/14/ | Office | Digestive Health | Marita Hadley, | Hiatal hernia with | | 2019 | Visit | Center at [facility] [address] | MD [address] | GERD (Primary Dx); | | | | [address] | [place], [place] | Severe obesity (BMI | | | | Mailcode: Center | [address] | >= 40) ([facility]) | | | | for Health and | [phone] | | | | | Healing, Building 2 | | | | | | [place], [place] | | | | | | [address] | | | | | | [phone] | | | +--------+---------+ + + + [...] follow-up with Dr. Hadley in six months. [facility] Foregut and Bariatric Surgery ClinicElectronically signed by Ly Vo MD at 06/14 4:49 PM PDT documented in this encounter Progress Notes Ly Vo MD - 06/14/2019 2:50 PM PDT [facility] Department of Surgery [facility] [...] Family History: Reviewed, notable for history of [place] in father. 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 Lives at home with daughter and [...] 20 mg by mouth once daily. Ad technical sales representative 30 to 60 minutes before meals simvastatin [...] with the above plan. Ly Vo MD [facility] Department of Surgery PGY-2 | [id number] STAFF: I saw and evaluated the patient. I agree with the findings and the plan of care as kylie armendariz in the resident s note. Marita Hadley MD [facility] [address] [facility] Mailcode: [place] [address] documented in this encounter Plan of Treatment Not on filedocumented as of this encounter Visit Diagnoses + + | Diagnosis | + + | Hiatal hernia with GERD - Primary | + + | Severe obesity (BMI >= 40) ([facility]) Morbid obesity | + + documented in this encounter
--- OUTSIDE RECORDS SUMMARY | ~2020-03-22 | XMS | Encounter Summary ---
Demographics + + + | Address | [address] | | | [place] [address] | + + + | Home Phone [...] Team Providers + +------+ + | Care Precision Agronomist Name | Role | Phone | + [...]
--- OUTSIDE RECORDS SUMMARY | ~2020-03-22 | XMS | Encounter Summary ---
Demographics + + + | Address | [address] | | | [place] [address] | + + + | Home Phone | | + + + | Preferred Language | Unknown | + + + | Marital Status | | + + + | Restorationism Affiliation | 1027 | + + + | Race | Unknown | + + + | Ethnic Group | Unknown | + + + Author + + + | Author | [facility] | | | and Maverickana | + + + | Organization | [facility] | | | [...] Providers + +------+ + | Care Senior Payroll Specialist Name | Role | Phone | [...] | [facility] [place] | [address] | | | | | [address] | [address] | | | | | [address] | [address] | | | | | [place] | | | | | | [phone] | | | +--------+ + + + [...] #: | | | | | | [id number] : | | | | | | 1950 | | | | | | | | | | | | Received:07/20/2005 | | | | | | Accession #: | | | | | | [id number] Clinician: | | | | | | [...] SNOMED | | | | | | T-37611, | | | | | | T-32451, [id number], | | | | | | M-47214, T-1A110 | | | | | | [...] dimensions. | | | | | | Power Plant Superintendent sections | | | | | | [...] + + | REFERENCE LAB | [address] | [place] [address] | [phone] | | [facility] | [address] | | | + + + + + | [facility] - | [address] [place] [address] NE | [place] [address] | [phone] | | [place] | | | | + + + + + documented in this encounter Visit Diagnoses Not on filedocumented in this encounter
--- OUTSIDE RECORDS SUMMARY | ~2020-03-22 | XMS | Encounter Summary ---
Demographics + + + | Address | [address] | | | [place] [address] | + + + | Home Phone | | + + + | Preferred Language | Unknown | + + + | Marital Status | | + + + | Mormonism Affiliation | 1027 | + + + | Race | Unknown | + + + | Ethnic Group | Unknown | + + + Author + + + | Author | [facility] | | | and Maverickana | + + + | Organization | [facility] [...] Providers + +------+ + | Care Certified Family Mediator Name | Role | Phone | + [...] | [facility] [place] | [address] | | | | | [address] | [address] | | | | | [address] | [place] | | | | | [place] | [phone] | | | | | [phone] | | | +--------+ + + + [...]
--- OUTSIDE RECORDS SUMMARY | ~2020-03-22 | XMS | Encounter Summary ---
Demographics + + + | Address | [address] | | | [place] [address] | + + + | Home Phone | | + + + | Preferred Language | Unknown | + + + | Marital Status | | + + + | Nondenominational Affiliation | 1027 | + + + | Race | Unknown | + + + | Ethnic Group | Unknown | + + + Author + + + | Author | [facility] | | | and Maverickana | + + + | Organization | [facility] | [...] Team Providers + +------+ + | Care Fitness Trainer Name | Role | Phone | + [...] | | CT EXC SKIN | | [address] | | | | | [place] | | Phone: | | | | | 2.1-3CM | | [phone] | | | | | TRUNK,ARM,LE | | Fax: | | | | | G CT SPLIT | | [phone] | | | | | GRFT | [...] Event | [facility] [place] | AEROSPACE ENGINEER OFFICER ARM[address] | | | | | [address] | [address] | | | | | [address] | | | | | | [place] | Roc Mcallister, | | | | | | AEROSPACE ENGINEER OFFICER [address] | | | | | | [...] [address] | | UPPER BACK BASAL | AEROSPACE ENGINEER OFFICER ARMAMENT | | | | CELL CARCINOMA | [...] + + | Periph | 10/07/15; 0821; [id number] | 10/07/15 0821 by | 07/16/18 1411 [...]
--- OUTSIDE RECORDS SUMMARY | ~2020-03-22 | XMS | Encounter Summary ---
Demographics + + + | Address | [address] | | | [place] [address] | + + + | Home Phone [...] + | Organization | [facility] | | | and Maevrickana | + + + | Address | Unknown | + + + | Phone | Unavailable | + + + Support + + +---------+ + | Name | Relationship | Address | Phone | + + +---------+ + | Marifer Valentin | ECON | Unknown | | + + +---------+ + Care Team Providers + +------+ + | Care Epic [facility]ists Name | Role | Phone | + [...] SARAB[place]IT NIETO | | | | | DC EXC SKIN | | [address] | | | | | [place] | | Phone: | | | | | 2.1-3CM | | [phone] | | | | | TRUNK,ARM,LE | | Fax: | | | | | G DC SPLIT | | [phone] | | | | | GRFT | [...] | CELL CARCINOMA | | | | [address] | [place] [address] | | | | | [place] | [phone] | | | | | | | [...] CELL CARCINOMA; Surgeon: Sundeep Lee MD; Location: [facility] OR JENERA ALLERGIES: Review of patient's allergies indicates no [...] appointment: Appointment with Dr. Lee at the [facility] in the [facility] in 1 week as scheduled. [...] Follow-up with Dr. Lee at the [facility], 2nd Floor on 10/13 at [...] number, call our answering service at [phone]. You have received sedation / an anesthetic today. DO NOT drive a vehicle, use alcoholic joseph erages, sign legal documents, take public transportation alone or care for a dependent perso n for the next 24 hours.:[id number]} documented in this encounter Medications at Time [...] | | 65Date of : 1950 CASE: [id number]: Tiffanie | CELLNETI X | | [facility] [id number]: Tiffanie Valentin | | | Date of [...] scar is 0.9cm from the deep margin. Relay Associate | | | sections are submitted asfollows: A1 - tips; A2-A8 - entire lesion | | | blocked out. (pam/[id number]) Jackson Vivar M.D. Electronically | | | signed 10/09/2015 13:07 Performed at [facility] | | | [place] [address] CLIA#: | | | [id number]: Unless otherwise specified, a microscopic exam | | | has been performed. Received Date: 10/07/2015Collection Date: | | | 10/07/2015Referring Physician: Jesus IRVIN, [facility] | | | Physician copies: | | [...] | | |cm from the deep margin. Relay Associate sections are submitted as | | |follows: A1 - tips; A2-A8 - entire lesion blocked out. (pam/[id number]) | | | | | | | | | | | | | | | Jackson Vivar M.D. Electronically signed 10/09/2015 13:07 (742) | | |[phone] Performed at [facility], [address] [place] [address], | | |[place] [address] [facility]#: [id number] | | |Microscopic: Unless otherwise specified, a [...] + + | REFERENCE LAB | [address] | [place] [address] | [phone] | | Gravy | 200 | | | + + [...]
--- OUTSIDE RECORDS SUMMARY | ~2020-03-22 | XMS | Encounter Summary ---
Demographics + + + | Address | [address] | | | [place] [address] | + + + | Home Phone [...] Team Providers + +------+ + | Care Um Specialist Name | Role | Phone | [...] on | Center at [facility] [address] | | | | | | [address] | | | | | | Mailcode: [place] | | | | | | for Health and | | | | | | Healing, Building [address] | | | | | | [place], [place] | | | | | | [address] | | | | | | [phone] | | | +--------+ + + + [...]
--- OUTSIDE RECORDS SUMMARY | ~2020-03-22 | XMS | Encounter Summary ---
Demographics + + + | Address | [address] | | | [place] [address] | + + + | Home Phone [...] Team Providers + +------+ + | Care Front Office Manager Name | Role | Phone | [...]
--- OUTSIDE RECORDS SUMMARY | ~2020-03-22 | XMS | Encounter Summary ---
Demographics + + + | Address | [address] | | | [place] [address] | + + + | Home Phone [...] Team Providers + +------+ + | Care Canopy Inspector Name | Role | Phone | [...]
--- OUTSIDE RECORDS SUMMARY | ~2020-03-22 | XMS | Encounter Summary ---
Demographics + + + | Address | [address] | | | [place] [address] | + + + | Home Phone [...] Providers + +------+ + | Care Senior Market Research Analyst Name | Role | Phone | + +------+ + | Stephanie [place] | PCP | | + +------+ + Encounter Details +--------+ + + + + | Date | Type | Department | Care Team | Description | +--------+ + + + + | 07/08/ | Abstract | Digestive Health | Clinic, Surgery | | | 2019 | | [place] [facility] [address] | | | | | | [address] | | | | | | Mailcode: [place] | | | | | | for Health and | | | | | | Healing, Building [address] | | | | | | [place], [place] | | | | | | [address] | | | | | | [phone] | | | +--------+ + + + [...]
--- OUTSIDE RECORDS SUMMARY | ~2020-03-22 | XMS | Encounter Summary ---
Demographics + + + | Address | [address] | | | [place] [address] | + + + | Home Phone [...] + + | Organization | [facility] | | | and [...] Providers + +------+ + | Care Manager Control Name | Role | Phone | + [...] | | | | | | | [place] CATH | | | | | | | PLACE/CORON | | | | | | | ANGIO, IMG | | | | | | | SUPER/INTERP | | | | | | | ,W LEFT | | | | | | | HEART | | | | | | | VENTRICULOGR | | | | | | | APHY [place] PRQ | | | | | | | TRLUML | | | | | | | CORONARY | | | | | | | STENT | | | | | | | W/ANGIO ONE | | | | | | | ART/BRNCH | | | | | | | OK PRQ | | | | | | [...] MED CTR CV | MD Janette [address] | CORONARIES/CORONARY | | | | INTRA OP [address] | [place] | INTERVENTION | | | | [place] | [address] | | | | | | [phone] | | | | | [phone] | | | +--------+---------+ + + + [...] Physician Discharge Summary Patient ID: Tiffanie Valentin [id number] y.o. 1950 Admit date: 01/02/2015 Discharge date and time: No discharge date for patient encounter. Admitting Physician: Jozef Hoover MD Discharge Physician: Jozef Hoover MD [facility] Interventional Cardiology [place], [place] Admission Diagnoses: Nonspecific abnormal unspecified cardiovascular [...] present. Please notify your MD and/or your Geophysical Observer if any of the follo wing occur: [...] + | Jozef Hoover MD 01/02/2015 9:22 [facility] | [facility] | | [facility] CARDIAC CATHETERIZATION REPORT PATIENT | | | NAME: | | | Tiffanie Valentin DATE OF : | | | 1950 MEDICAL | | | RECORD NUMBER: [id number] | | | DATE OF PROCEDURE: | | | 01/02/2015 FACILITY: | | | [facility] | | | [place], [place] | | | | | | PRIMARY CARE PROVIDER: | | | Peng Fink PRIMARY PRIMARY SCHOOL TEACHER LIBRARIAN: | | | Jozef Hoover MD [facility] Interventional Cardiology | | | [place], [place] COATER SMOKING PIPE: | | | Dr. Jozef Hoover MD | | | [facility] PRE-PROCEDURE DIAGNOSIS: | | | abnormal [...] and anesthetized with 1% lidocaine. A 6 belgian sheath was | | | placed into the right radial artery A 6 belgian pigtail cathether was | | | advanced [...] Jozef Siddiqui | | | MD Kiko [facility] Interventional Cardiology [facility] | | | [place], [place] 01/02/2015 9:20 | | + + [...] | | | | 324 mg, Oral, CONSULTING NURSE, Starting | | 15 7:29 | | [...] | mLs | | | | Intravenous, CONSULTING NURSE, Starting | | AM PDT | | [...]
--- OUTSIDE RECORDS SUMMARY | ~2020-03-22 | XMS | Encounter Summary ---
Demographics + + + | Address | [address] | | | [place] [address] | + + + | Home Phone [...] Phone | + + +---------+ + | Mariefr Valentin | ECON | Unknown | | + + +---------+ + Care Team Providers + +------+ + | Care Forensic Nurse Name | Role | Phone | [...] | | | Cody Bill Mailcode: | [facility] [place] | | | | | [address] | [address] | | | | | Health and Healing, | [phone] | | | | | [facility] | | | | | | Floor [place], [place] | | | | | | [address] | | | | | | [phone] | | | +--------+ + + + [...] + + + | EXAM: Esophagram with manager regional sales radiograph HISTORY: Hiatal hernia | [facility] | [...] PM PDT EXAM: Esophagram | | with manager regional sales radiograph HISTORY: Hiatal hernia with GERD COMPARISON: [...]
--- OUTSIDE RECORDS SUMMARY | ~2020-03-22 | XMS | Encounter Summary ---
Demographics + + + | Address | [address] | | | [place] [address] | + + + | Home Phone [...] Team Providers + +------+ + | Care Pool Lifeguard Name | Role | Phone | + +------+ + PCP | Unavailable | + +------+ + Encounter Details +--------+ + + + + | Date | Type | Department | Care Team | Description | +--------+ + + + + | 12/12/ | Wound Specialist | Digestive Health | Marita Hadley, | Hiatal hernia with | | 2019 | | Center at [facility] [address] | MD [address] | GERD and esophagitis | | | | [address] | [place], [place] | (Primary Dx) | | | | Mailcode: [place] | [address] | | | | | for Health and | [phone] | | | | | [facility] [address] | | | | | | [place], [place] | | | | | | [address] | | | | | | [phone] | | | +--------+ + + + [...] + + + | EXAM: Esophagram with child therapist radiograph HISTORY: Hiatal hernia | [facility] | [...] Note | + + | Service Account, [employer] In Interface - 06/14/2019 2:39 PM PDT EXAM: Esophagram | | with child therapist radiograph HISTORY: Hiatal hernia with GERD COMPARISON: [...]
--- OUTSIDE RECORDS SUMMARY | ~2020-03-22 | XMS | Encounter Summary ---
Demographics + + + | Address | [address] | | | [place] [address] | + + + | Home Phone [...] Providers + +------+ + | Care Director Security Management Name | Role | Phone | + [...] | | | [place] Mailcode: | [facility] [place] | | | | | [address] | [address] | | | | | Health and Healing, | [phone] | | | | | [facility] | | | | | | Floor [place], [place] | | | | | | [address] | | | | | | [phone] | | | +--------+ + + + [...] + + + | EXAM: Esophagram with baseball scout radiograph HISTORY: Hiatal hernia | [facility] | | with GERD COMPARISON: None TECHNIQUE: Radiation dose reduction | RADIOLOGY VOICE | | technique was maximized where appropriate using pulsed fluoroscopy | RECOGNITION 2 | | and fluoro-store images. Fluoro Time: 81 sec FINDINGS: | | | Double contrast images were obtained with the patient upright in GREEK | | | position. Single contrast images [...] PM PDT EXAM: Esophagram | | with baseball scout radiograph HISTORY: Hiatal hernia with GERD COMPARISON: None TECHNIQUE: | | Radiation dose reduction technique was maximized where appropriate using pulsed | | fluoroscopy and fluoro-store images. Fluoro Time: 81 sec FINDINGS: Double contrast | | images were obtained with the patient upright in GREEK position. Single contrast images | | were [...]
--- OUTSIDE RECORDS SUMMARY | ~2020-03-22 | XMS | Encounter Summary ---
Demographics + + + | Address | [address] | | | [place] [address] | + + + | Home Phone | | + + + | Preferred Language | Unknown | + + + | Marital Status | | + + + | Catholic Affiliation | 1027 | + + + | Race | Unknown | + + + | Ethnic Group | Unknown | + + + Author + + + | Author | [facility] | | | and [place]ver[place] | + + + | Organization | [facility] | | [...] Team Providers + +------+ + | Care Granite Fabricator Name | Role | Phone | + [...] | | | left upper | | [address] | | | | | extremity, | | Phone: | | | | | including | | [phone] | | | | | shoulder | | Fax: | | | | | Procedures | | [phone] | | | | | AK EXC TUMOR | | | | | | | SOFT TISSUE | | | | | | | UPPER | | | | | | | ARM/ELBOW | | | | | | | SUBQ 3+CM | | | | | | | AK EXC SKIN | | | | | [...] Event | [facility] [place] | SUPERVISOR BLOOD [address] | | | | | INTRA MAIN [address] [place], | | | | | [address] | [place] [address] | | | | | [place] [address] | [phone] | | | | | [phone] | | | | | | | Hardeep Johnson, | | | | | | SUPERVISOR BLOOD [address] | | | | | | [place] | | | | | | [address] | | | | | | | [...] +----+---+ + + | | 1 | [place] | | | | 0 | 43-degrees [...] +----+---+ + + | | 1 | [place] off | | | | 2 | [...] + + | Periph | 10/07/15; 0821; [id number] | 10/07/15 0821 by | 07/16/18 1411 [...] + + | Periph | 11/17/15; 1000; [id number] | 11/17/15 1000 by | 11/17/15 1416 by | | eral | catheter system; 20 gauge, 1 in | Latasha Abbott | Dilcia Sewell, | | IV | length; distraction, intradermal | | CREDIT CARD ASSOCIATE | | | injection, tolerated well; | [...] | healing within expectations; | RN | CREDIT CARD ASSOCIATE | | | 11/17/15; 1416 | | | +--------+ + + + | Read | 11/17/15; 1144; Left; arm; | 11/17/15 1144 by | 11/17/15 1416 by | | only - | healing within expectations; | Collette Edmonds, | Dilcia Sewell, | | | 11/17/15; 1416 | RN | CREDIT CARD ASSOCIATE | | Inc[facility] | | | | [...]
--- OUTSIDE RECORDS SUMMARY | ~2020-03-22 | XMS | Encounter Summary ---
Demographics + + + | Address | [address] | | | [place] [address] | + + + | Home Phone [...] Team Providers + +------+ + | Care Inspector Precision Assembly Name | Role | Phone | + [...]
--- OUTSIDE RECORDS SUMMARY | ~2020-03-22 | XMS | Encounter Summary ---
Demographics + + + | Address | [address] | | | [place] [address] | + + + | Home Phone [...] Team Providers + +------+ + | Care Demonstrator Sales Name | Role | Phone | [...] Bill | | | | | | [place], [place] | | | | | | [address] | | | | | | [phone] | | | +--------+------+ + + + [...] section. | | | | | ([facility]) Depression, | | | | [...] section. | | | | | ([facility]) Depression, | | | | [...] B: | | | | | | Mobilitus/CSPerformed | | | | | | by Cache IQ,500 | | | | | | [facility] | | | | | | [address] | | | | | | [phone].Scour Prevention. | | | | | | [facility] children[facility]rey MD, | | | | | | [...] [facility] | [address] | [place], [place] | | | UNIV PTH - INTFC | | [address] | | + + + + + [...] [facility] | | | (ROC ALEXIS) | Cache IQ,500 | | REG UNIV | | | SERUM | Jamie Soria, [facility],[place] | | PTH - INTFC | | | | [address] | | | | | | [phone].[employer] Grouplab. | | | | | | Jeffrey [...] B: | | | | | | Scour Prevention.O[employer] Cosmico/CS | | | | + + + + + + + + | Specimen | + + | Blood - Blood | | (substance) | + + + + + + + | Performing | Address | City/State/Zipcode | Phone Number | | Organization | | | | + + + + + | [facility] | [address] | [place], [place] | | | UNIV PTH - INTFC | | [address] | | + + + + + [...] | + + + + + | [facility] | [address] | [place] [address] | | | SERVICES, CORE | ABEBA [...] | + + + + + | [facility] | [address] | [place] [address] | | | DEANDRE, ROSALIA | ABEBA [...] | | | | | determined by [employer] | | | | | | Laboratories. See | | | | | | Compliance Statement B: | | | | | | Scour Prevention.Ovo Cosmico/CSPerformed | | | | | | by Cache IQ,500 | | | | | | [facility] | | | | | | [address] | | | | | | [phone].Scour Prevention. | | | | | | com, [...] + | [facility] | [address] | [place], [place] | | | UNIV PTH - INTFC | | [address] | | + + + + + [...] INTFC | | | | determined by [employer] | | | | | | Arg[employer]. See | | | | | | Compliance Statement B: | | | | | | Mobilitus/CSPerformed | | | | | | by Cache IQ,500 | | | | | | [place], [place] | | | | | | [address] | | | | | | [phone].Convozinelab. | | | | | | Jeffrey [...] [facility] | [address] | [place], [place] | | | UNIV PTH - INTFC | | [address] | | + + + + + [...] | + + + + + | [facility] | [address] | [place] [address] | | | SERVICES, JEROME FOR | | | | | HEALTH [...] | | | | | determined by [employer] | | | | | | Arganteal. See | | | | | | Compliance Statement B: | | | | | | Scour Prevention.Ovo Cosmico/CSPerformed | | | | | | by Cache IQ,500 | | | | | | [facility],[place] | | | | | | [address] | | | | | | [phone].Scour Prevention. | | | | | | [facility] childrenJeffrey MD, | | | | | | [...] [facility] | [address] | [place], [place] | | | UNIV PTH - INTFC | | [address] | | + + + + + [...] [facility] | [address] | [place] [address] | | | SERVICES, CORE | PARK [...] [facility] | [address] | [place] [address] | | | SERVICES, CORE | PARK [...] | + + + + + | [facility] | [address] | [place] [address] | | | SERVICES, SPECIAL | ABEBA [...] | [facility] | | considered for monitoring usp glycemic control in patients with: | LABORATORY [...] | + + + + + | [facility] | [address] | [place] [address] | | | SERVICES, SPECIAL | PARK [...] | + + + + + | [facility] | [address] | [place] [address] | | | DEANDRE, ROSALIA | ABEBA [...] | | | | | determined by [facility] | | | | | | Laboratories. See | | | | | | Compliance Statement B: | | | | | | Scour Prevention.Ovo Cosmico/CSPerformed | | | | | | by Cache IQ,500 | | | | | | [facility],[place] | | | | | | [address] | | | | | | [phone].[employer]. | | | | | | com, [...] [facility] | [address] | [place], [place] | | | UNIV PTH - INTFC | | [address] | | + + + + + [...] SERVICES, | | | | | | JEROME FOR | | | | | | [...] MDRD equation recommended by the National | [facility] | | Kidney Disease Education [...] | + + + + + | [facility] | [address] | [place] [address] | | | [facility] | | | | | HEALTH + HEALING | | | | + + + + + documented in this encounter Visit Diagnoses Not on filedocumented in this encounter"
--- OUTSIDE RECORDS SUMMARY | ~2020-03-22 | XMS | Encounter Summary ---
Demographics + + + | Address | [address] | | | [place] [address] | + + + | Home Phone | | + + + | Preferred Language | Unknown | + + + | Marital Status | | + + + | Caodaism Affiliation | 1027 | + + + | Race | Unknown | + + + | Ethnic Group | Unknown | + + + Author + + + | Author | [facility] | | | and Maverickana | + + + | Organization | [facility] [...] Team Providers + +------+ + | Care Tank Filler Name | Role | Phone | + [...] | [facility] IP | [address] | | | | | [address] | [address] | | | | | [place], | [place] [address] | | | | | [place] [address] | [phone] | | | | | [phone] | | | +--------+ + + + [...]
[~2020-03-22 12:22] MED LIST changes: +ASPIRIN EC81 MG PO; +MOTRIN IB200 MG PO; +MULTI VITAMIN1 EACH PO; +TYLENOL EXTRA500 MG PO; +VENLAFAXINE HCL75 MG PO; +VITAMIN D350 MC3 PO
--- OUTSIDE RECORDS SUMMARY | 2020-03-22 12:24 | XMS ---
PreManage Notification: REDDY FLANAGAN Security [facility] Coordinator Events No recent Security Events currently on file CRITERIA MET - [place] [facility] - 2 Visits in 30 Days CARE PROVIDERS BINTA GUERRA Physician 03/13/2020-Current PHONE: Unknown Pravin has no Care Guidelines for this patient. Kirsty VISIT COUNT (12 MO.) 3 [facility] TOTAL 3 NOTE: Visits indicate total known visits. ED/UCC VISIT TRACKING (12 MO.) 03/22/2020 12:23 [facility] TYPE: Emergency COMPLAINT: - SUTURE PROBLEM/ ABD 03/12/2020 13:48 [facility] TYPE: Emergency COMPLAINT: - ABD PAIN 03/10/2020 14:22 [facility] [place] TYPE: Emergency COMPLAINT: - VOMITING DIAGNOSES: - Essential (primary) hypertension - Other rn long term care (current) drug therapy - Personal history of nicotine dependence - Nausea with vomiting, unspecified - Acute gastritis without bleeding INPATIENT VISIT TRACKING (12 MO.) 03/12/2020 16:35 [facility] [place] TYPE: Medical Surgical COMPLAINT: - INCARCERATED UMBILICAL HERNIA DIAGNOSES: - Contact with and (suspected) exposure to other viral communic - Body mass index (BMI) 45.0-49.9, adult - Contact with and (suspected) exposure to other viral communic - Other jail (current) drug therapy - Personal history of nicotine dependence - Essential (primary) hypertension - Body mass index (BMI) 45.0-49.9, adult - Essential (primary) hypertension - Vascular disorder of intestine, unspecified - Morbid (severe) obesity due to excess calories - Other jail (current) drug therapy - Incisional hernia with obstruction, without gangrene - Hyperlipidemia, unspecified - Morbid (severe) obesity due to excess calories - Personal history of nicotine dependence - Vascular disorder of intestine, unspecified - Hyperlipidemia, unspecified [email or web address]
--- NOTE | 2020-03-23 08:44 | CONS ---
[facility] [address] [place], [place] [address] Signed DATE OF CONSULTATION: 03/22/2020 REQUESTING PHYSICIAN: Mykel Goel MD. PROBLEM: Skin dehiscence, lower aspect of incision with recent operation. HISTORY OF PRESENT ILLNESS: This morbidly obese 69-year-old white woman recently underwent repair of an incarcerated incisional hernia in the region of the umbilicus by me. This included resection of small bowel and omentum, both of which were ischemic. She had implantation of Vicryl mesh in an underlay technique with reapproximation of the fascia using absorbable PDS suture. She is quite markedly obese and the skin was closed with running subcuticular 3-0 Vicryl and Steri-Strips were applied. She has had an abdominal binder. She was discharged from the hospital just a few days ago, having recovered quite well. She was in the shower today and after the shower, bent over and had a sudden disruption of skin in the lower aspect of her midline incision, which was just below the umbilicus. This allowed for egress of bloody material. She had no ongoing leakage of fluid or anything of that sort and certainly no evisceration. She presented to the emergency room, where she was evaluated by Dr. Goel and noted skin dehiscence. She has had no nausea, vomiting, or other problems. PHYSICAL EXAMINATION: GENERAL: Morbidly obese white woman, who looks to be in no acute distress. Examination of the wound shows separation of the skin and a Vicryl suture that had been in the subcuticular position having unraveled. Probing of the wound with sterile glove does not show evisceration or dehiscence of her deeper soft tissues. The dehiscence is a skin dehiscence only. I believe this can be reapproximated without undue risk for infection and more likely a better approach as regard to wound care at this point. DESCRIPTION OF PROCEDURE: The depths of the wound had been probed and were cleansed with a Betadine swab and the edges of the skin swabbed fully as well. The area was sterilely draped and a 1% lidocaine with epinephrine was injected locally in the skin edges. Interrupted 3-0 nylon suture was placed beginning at the apex to stabilize the remaining skin, which was well apposed and without sign of dehiscence with an interrupted vertical mattress stitch. Approximately 6 or 7 additional vertical mattress sutures were used sequentially to reapproximate the skin edges. A sterile gauze dressing was applied as Electronically Signed By: NEELA AMIN MD 03/23/20 0844 PATIENT NAME: REDDY FLANAGAN CONSULTATION DATE OF : 52 REPORT #: [id number] PHYSICIAN: NEELA AMIN MD PCP: BINTA GUERRA PAC REPORT IS CONFIDENTIAL AND NOT TO BE RELEASED WITHOUT AUTHORIZATION [address] [address] Signed well as tape. ASSESSMENT: Skin dehiscence without sign of evisceration, now repaired. Discussed with the patient continued need for care and particularly to use her abdominal binder as noted before. She will remove the dressing tomorrow and shower as permitted. If she notes erythema or other signs of wound infection developing, she will let me know at once. We are anticipating to see her back in the office in the near future as well. MD KRISTY Jimenez/MODL /[id number] cc: Mykel Goel MD Copies: MYKEL GOEL MD ~ Electronically Signed By: NEELA AMIN MD 03/23/20 0844 PATIENT NAME: REDDY FLANAGAN CONSULTATION DATE OF : 52 REPORT #: [id number] PHYSICIAN: NEELA AMIN MD PCP: BINTA GUERRA PAC REPORT IS CONFIDENTIAL AND NOT TO BE RELEASED WITHOUT AUTHORIZATION
== END 2020-03-22 13:35 | disposition home or self-care (01) ==
LOC: ED 12:22
DX: T81.31XA Disruption of external operation (surgical) wound, not elsewhere classified, initial encounter (principal); I10 Essential (primary) hypertension; Z87.891 Personal history of nicotine dependence; Z79.899 Other long term (current) drug therapy
CPT/HCPCS: 99283

== ENCOUNTER 2021-05-03 07:10 | Day surgery (SDC) | payer MEDICARE ==
--- NOTE | 2021-04-20 10:32 | NUR ---
Patient is having a left total knee replacement on 05/03. She will be renting a walker and bring it the day of surgery. She has 5 steps into her home with a rail. She has no steps inside her home. She has a shower/tub combo. She has a shower chair, hand-held shower head, and a toilet seat riser. She lives by herself but her daughter and/or granddaughter will be staying with her for the first 5 days after surgery. One of them will be taking her to her physical therapy appt. Her first physical therapy appt. is on 05/10.
[~2021-05-03] VITALS: Ht 167.6 cm; Wt 118.0 kg
[~2021-05-03 07:10] MED LIST changes: +ASPIRIN EC325 MG PO; +CELECOXIB200 MG PO; +COLLAGEN PLUS1 EACH PO; +CYCLOBENZAPRINE10 MG PO; +GABAPENTIN300 MG PO; +HYDROCHLOROTHIA25 MG PO; +IRON18 MG PO; +IRON325 M1; +OXYCODONE HCL5 MG PO; +SENNA LAX8.6 MG PO; +XARELTO10 MG PO
--- NOTE | 2021-05-03 08:29 | NUR ---
ACCOUNT MAINTENANCE REPRESENTATIVE INTO VISIT PATIENT. PRE-OP ORAL MEDICATIONS ADIMINSTERED. NO OTHER NEEDS AT THIS TIME. CALL LIGHT WITHIN REACH.
[2021-05-03] MEDS ORDERED: ASPIRIN EC325 MG PO (11:06)
[2021-05-03] MEDS ORDERED: XARELTO10 MG PO (11:06)
[2021-05-03] MEDS ORDERED: OXYCODONE HCL5 MG PO (11:07)
[2021-05-03] MEDS ORDERED: SENNA LAX8.6 MG PO (11:07)
[2021-05-03] MEDS ORDERED: GABAPENTIN300 MG PO (11:07)
--- NOTE | 2021-05-03 11:40 | NUR ---
05/03/21 1140 Marita Crabtree 1115 PT ARRIVED IN PACU WIDE AWAKE WITH NO C/O'S. ON QUE SET AT 4ML/HR. 1120 CRYO CUFF PLACED ON L KNEE. PT MOVING BILAT LEGS/TOES. 1135 C/O L KNEE PAIN 12/30. 1137 TORADOL 15MG GIVEN IVP. 1140 VISITING WITH STAFF.
--- NOTE | 2021-05-03 12:06 | NUR ---
1155: PT BACK TO DS RM 4 FROM PACU AWAKE AND ALERT. PT DENIES ANY PAIN IN LEFT KNEE, STATES KNEE IS NUMB. PT TOLERATES WATER AND JELLO WITH NO NAUSEA. DC CRITERIA EXPLAINED TO PT, CALL LIGHT WITHIN REACH.
--- NOTE | 2021-05-03 12:14 | NUR ---
ADMINISTERED TXA SCHEDULED. REPORT AT BEDSIDE FROM RODOLFO MEDINA. THIS NURSE TO RESUME CARE.
--- NOTE | 2021-05-03 13:05 | NUR ---
PATIENT EATING LUNCH. REPORTS PAIN 0/10 ON PAIN SCALE. DRESSING TO LEFT KNEE C/D/I, ICE IN PLACE WITH FOOT PUMPS IN ACTION. PLAN TO WORK WITH PHYSICAL THERAPY 1300, PATIENT REPORTS FEELING READY TO GET UP FOR ACTIVITY. NO OTHER NEEDS AT THIS TIME. WARM TOES, STRONG PEDAL PULSE TO LEFT LEG.
--- NOTE | 2021-05-03 14:00 | NUR ---
PT UP TO BATHROOM WITH PHYSICAL THERAPY ASSIST, USE OF GAIT BELT AND FRONT WHEEL WALKER. PT HAS STEADY GAIT, DENIES ANY DIZZINESS OR NAUSEA WITH MOVEMENT. PT ABLE TO VOID APPROX 500 MLS ORANGE COLORED URINE. PT AMBULATES TO IN HALLWAY WITH USE OF WALKER. JUAN LUIS PUSHES PT TO MED SURG TO PERFORM STAIR EXERCISES.
--- NOTE | 2021-05-03 14:45 | NUR ---
PT RESTING IN BED AWAKE AND ALERT WATCHING TV. PT STATES THAT DAUGHTER DOES NOT GET OFF OF WORK UNTIL [place] 1630, AND WOULD LIKE TO STAY UNTIL THEN. PT DENIES PAIN IN LEFT KNEE STATES "VIRTUALLY NO PAIN." PT DENIES NAUSEA AND TOLERATES PO WELL. CRYO CUFF TO LEFT KNEE WITH PILLOW CASE BARRIER BENEATH. CALL LIGHT WITHIN REACH.
--- NOTE | 2021-05-03 15:28 | NUR ---
PT ALERT, ORIENTED AND SEEMS PREPARED. PT MENTIONED THAT SHE HAS HAD THE OTHER KNEE REPLACED JUST 4 MONTHS AGO. PT MENTIONED SHE IS PLEASED WITH OUTCOME OF FIRST KNEE. ALL QUESTIONS ASKED ANSWERED. PT REQUESTED PRAYER, WILL FOLLOW NEEDED
--- NOTE | 2021-05-03 15:30 | NUR ---
PATIENT AWAKE AND WAITING FOR RIDE HOME. NO COMPLAINTS OF PAIN. DRESSING TO TO KNEE C/D/I. ICE IN PLACE. NO OTHER NEEDS AT THIS TIME
--- NOTE | 2021-05-03 16:12 | NUR ---
DMITRI RN PROVIDED DISCHARGE INSTRUCTION TO PATIENT. IV REMOVED WNL. PATIENT RATED PAIN 0/10 ON PAIN SCALE. DRESSING TO LEFT KNEE C/D/I. PATIENT REPORTED FEELING CONFIDENT WITH RECENT HISTORY OF HAVING OTHER TOTAL KNEE DONE. PATIENT DAUGHTER VERBALIZED UNDERSTANDING OF CARE, AND REPORTED NO CONCERNS.
--- NOTE | 2021-05-05 07:02 | OR ---
[facility] [address] [place], [place] [address] Signed DATE OF OPERATION: 05/03/2021 SURGEON: Valentin Brown MD PREOPERATIVE DIAGNOSIS: Degenerative joint disease, left knee. POSTOPERATIVE DIAGNOSIS: Degenerative joint disease, left knee. PROCEDURE PERFORMED: Left total knee arthroplasty with Rafael. RESEARCH HYDROLOGIST: Hannah Wells PA-C. Hannah was present and critical for all portions of procedure. ANESTHESIA: Spinal. BLOOD LOSS: 225 mL. TOURNIQUET TIME: Zero. IMPLANTS: Fletcher Triathlon size 4, 11 mm polyethylene, and a 36 mm patella. BRIEF HISTORY: Tiffanie is a 70-year-old female with significant osteoarthritis in both knees. She had undergone successful right total knee and wished to proceed with left. The left was noted to have significant flexion contracture about 15 degrees and a little bit of valgus. Risks and benefits of operative treatment were discussed with her and she elected to proceed. DESCRIPTION OF PROCEDURE: Once consent was obtained, she was taken to the operating room. After adequate anesthesia, she was placed on operating room table and all downside pressure points were well padded. Hip bump was placed and the leg was prepped and draped in a standard Electronically Signed By: VALENTIN BROWN MD 05/05/21 0702 PATIENT NAME: TIFFANIE FLANAGAN OPERATIVE REPORT DATE OF : 52 REPORT #: [id number] PHYSICIAN: VALENTIN BROWN MD PCP: BINTA GUERRA PAC REPORT IS CONFIDENTIAL AND NOT TO BE RELEASED WITHOUT AUTHORIZATION [facility] [address] [place], [place] [address] Signed sterile fashion. The leg was approached through a midline incision, was centered between the two prior incisions with the least 2 cm of the gap, this was carried through skin and subcutaneous tissue, and a mid vastus approach was undertaken. The MCL was elevated with a sleeve around the posteromedial corner. She had a prior MCL repair and there was little tissue distally along the tibia, but it was quite thickened at the medial femoral condyle, this was carefully elevated and preserved. The fat pad was excised and the osteophytes around the patella were removed till lateralization. Once this was accomplished, the knee was flexed. Anterior horns of any remaining menisci were transected. The computer rays were then placed in the medial femoral condyle and the tibial shaft. The leg was then registered with the computer and the fine anatomic points were registered. The knee alignment was adjusted slightly by moving the femur proximally due to the flexion contracture and adjusting slight valgus. Once this was accomplished, the robot was brought in and the straight cuts were made with care taken to protect the MCL and patellar tendon; thus the 2 angle cuts were then made. All osteophytes and remaining bone fragments were removed. We then removed the large osteophytes from the posterior aspect of the knee, there was one loose body as well. Posterior release was performed. Once this was accomplished, the trials were positioned. The knee was found to be stable from 0 to about 130 degrees of flexion. She had excellent varus valgus stability. The patella was cut, sized, and drilled for a 36 metric patella. The distal femoral drill holes were made and the proximal tibia was finished using the keel punch. Due the softness of bone, we elected to go with a hybrid prosthesis. The bone was pulse lavaged, packed with dry Ray-Kaylee. The cement was mixed and when it reached proper consistency, it was placed on all implants on all bone surfaces. The tibia was impacted into position first. All overflow was removed. Polyethylene was snapped into position and the femur was impacted in place. The knee was extended and nicely loaded. The patella was clamped into position. Again, all excess overflow was removed. The cement was allowed to harden. Once it hardened sufficiently, the knee was flexed and the remaining overflow was removed. The knee was pulse lavaged at intervals throughout the procedure, a total of 3 L were used. The knee was soaked with Aricept in the midportion of the procedure. The bleeders were cauterized as we went. The On-Q pain pump was then placed percutaneously into the adductor canal from the suprapatellar pouch. The arthrotomy was then closed using #2 Stratafix, subcutaneous tissue using #0 Stratafix, and skin with 3-0 Stratafix. The wound was Steri-Stripped and the knee was dressed with an Acticoat 7, ABDs and Roby wrap. She tolerated the procedure well. All sponge, needle, and instrument counts were correct. Valentin Brown MD Electronically Signed By: VALENTIN BROWN MD 05/05/21 0702 PATIENT NAME: TIFFANIE FLANAGAN OPERATIVE REPORT DATE OF : 52 REPORT #: [id number] PHYSICIAN: VALENTIN BROWN MD PCP: BINTA GUERRA PAC REPORT IS CONFIDENTIAL AND NOT TO BE RELEASED WITHOUT AUTHORIZATION [facility] [address] [place] [address] [place], [place] [address] Signed /[facility] /[id number] Copies: ~ Electronically Signed By: VALENTIN BROWN MD 05/05/21 0702 PATIENT NAME: TIFFANIE FLANAGAN OPERATIVE REPORT DATE OF : 52 REPORT #: [id number] PHYSICIAN: VALENTIN BROWN MD PCP: BINTA GUERRA PAC REPORT IS CONFIDENTIAL AND NOT TO BE RELEASED WITHOUT AUTHORIZATION
== END 2021-05-03 16:15 | disposition home or self-care (01) ==
LOC: DS 07:10
PROVIDERS: ATTEND Specialist
PROC: 0SRD0J9 Replacement of Left Knee Joint with Synthetic Substitute, Cemented, Open Approach (ICD-10-PCS; principal; 2021-05-03 10:00)
DX: M17.12 Unilateral primary osteoarthritis, left knee (principal); G89.18 Other acute postprocedural pain
CPT/HCPCS: 01402; 64447; 64450; 76942; C1713; C1776; J0690; J1100; J1885; J2001; J2370; J2704; J7121